=== PATIENT | male | born 1955 | race Caucasian/White ===

== ENCOUNTER 2020-10-06 09:39 | Outpatient (REF) | payer MEDICARE, SELFPAY ==
[2020-10-06 10:15] LABS: Basophils Percent Auto 0.3 % (0-2); MANUAL DIFF FLAG SCAN; Mean Corpuscular HGB Conc 32.5 g/dl (31.0-36.0); PLT CLUMP 1; Red Cell Distribution Width 13.2 % (11.0-16.0); SCAN SMEAR FLAG 1
[2020-10-06 10:17] LABS: Eosinophils Absolute Auto 0.2 X10*3/uL (0.0-0.4); Eosinophils Percent Auto 2.8 % (0-4); Hematocrit 45.2 % (42-52); Hemoglobin 14.7 g/dl (14.0-18.0); Imm Gran Abs Auto 0.04 X10*3/uL (0.00-0.03); Imm Gran Pct Auto 0.7 % (0.0-0.4); Lymphocytes Absolute Auto 1.1 X10*3/uL (1.2-4.9); Lymphocytes Percent Auto 17.8 % (20-40); Mean Corpuscular Hemoglobin 27.8 pg (27.0-33.0); Mean Corpuscular Volume 85.4 fL (80-98); Mean Platelet Volume 9.9 fL (9.4-12.4); Monocytes Absolute Auto 0.4 X10*3/uL (0.1-1.2); Monocytes Percent Auto 6.5 % (2-11); Neutrophils Absolute Auto 4.3 X10*3/uL (2.0-8.3); Neutrophils Percent Auto 71.9 % (45-73); Platelet Count 143 X10*3/uL (160-400); Red Blood Count 5.29 X10*6/uL (4.60-5.80)
[2020-10-06 10:45] LABS: Estimated Average Glucose 174 mg/dL; Hemoglobin A1c % 7.7 %
[2020-10-06 11:24] LABS: Alanine Aminotransferase 22 U/L (0-40); Albumin Level 4.6 g/dL (3.5-5.0); Alkaline Phosphatase 61 U/L (39-117); Anion Gap 15 (12-20); Aspartate Amino Transferase 24 U/L (5-37); Bilirubin Total 0.6 mg/dL (0.0-1.0); Blood Urea Nitrogen 19 mg/dL (9-16); Calcium 9.2 mg/dL (8.4-10.2); Carbon Dioxide 26 mmol/L (22-29); Chloride 101 mmol/L (96-108); Cholesterol 213 mg/dL; Estimated Glomerular Filt Rate 49; Glucose Random 219 mg/dL (60-115); HDL Cholesterol 37 mg/dL; LDL Cholesterol Calculated 149 mg/dl; Potassium 3.9 mmol/l (3.3-5.1); Sodium 138 mmol/L (135-145); Total Protein 7.5 g/dL (6.5-8.0); Triglycerides 138 mg/dL
[2020-10-06 11:46] LABS: Free T4 (Free Thyroxine) 1.17 ng/dL (0.71-1.85); Thyroid Stimulating Hormone 1.09 uIU/mL (0.32-4.0)
[2020-10-06 11:47] LABS: Prostate Specific Antigen Scr 1.05 ng/mL (<0.05-4.0)
[2020-10-06 12:03] LABS: Folate 13.6 ng/mL (> or = 4.0); Vitamin B12 367 pg/mL (200-900)
[2020-10-06 14:30] LABS: Creatinine Urine 258.26 mg/dL; Microalbum/Creatinine Ratio Ur 40.2 ug/mg cr
== END 2020-10-06 09:40 | disposition home or self-care (01) ==
LOC: HO.10HDL 09:39
PROVIDERS: PCP Internal Medicine; Visit Provider Internal Medicine
DX: I25.10 Atherosclerotic heart disease of native coronary artery without angina pectoris (principal); E78.00 Pure hypercholesterolemia, unspecified; I10 Essential (primary) hypertension; E11.65 Type 2 diabetes mellitus with hyperglycemia; Z79.4 Long term (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
CPT/HCPCS: 36415; 80053; 80061; 82043; 82607; 82746; 83036; 84153; 84439; 84443; 85025

== ENCOUNTER 2021-03-30 08:19 | Outpatient (REF) | payer MEDICARE, SELFPAY ==
[2021-03-30 09:33] LABS: Creatinine Urine 119.85 mg/dL
== END 2021-03-30 08:20 | disposition home or self-care (01) ==
LOC: HO.LAB 08:19
PROVIDERS: PCP Internal Medicine; Visit Provider Internal Medicine
DX: Z13.89 Encounter for screening for other disorder (principal)

== ENCOUNTER 2021-06-29 07:12 | Outpatient (REF) | payer MEDICARE, SELFPAY ==
[2021-06-29 07:40] LABS: Hematocrit 43.8 % (42-52); Hemoglobin 14.8 g/dl (14.0-18.0); Mean Corpuscular HGB Conc 33.8 g/dl (31.0-36.0); Mean Corpuscular Hemoglobin 27.3 pg (27.0-33.0); Mean Corpuscular Volume 80.8 fL (80-98); Mean Platelet Volume 10.3 fL (9.4-12.4); Platelet Count 206 X10*3/uL (160-400); Red Blood Count 5.42 X10*6/uL (4.60-5.80); Red Cell Distribution Width 12.9 % (11.0-16.0); White Blood Count 10.8 X10*3/uL (4.8-10.8)
[2021-06-29 08:06] LABS: Alanine Aminotransferase 11 U/L (0-40); Albumin Level 4.4 g/dL (3.5-5.0); Alkaline Phosphatase 66 U/L (39-117); Amylase 56 U/L (28-100); Aspartate Amino Transferase 14 U/L (5-37); Bilirubin Direct 0.2 mg/dL (0.0-0.5); Bilirubin Total 0.5 mg/dL (0.0-1.0); Lipase 122 U/L (8-78); Total Protein 7.1 g/dL (6.5-8.0)
== END 2021-06-29 07:13 | disposition home or self-care (01) ==
LOC: HO.LAB 07:12
PROVIDERS: PCP Internal Medicine; Visit Provider Physician Assistant
DX: R10.32 Left lower quadrant pain (principal); I10 Essential (primary) hypertension
CPT/HCPCS: 36415; 80076; 82150; 83690; 85027

== ENCOUNTER 2021-08-30 09:16 | Outpatient (REF) | payer MEDICARE, SELFPAY ==
--- NOTE | ~2021-08-30 | US_ITS ---
EXAMINATION: US ABDOMEN COMPLETE CLINICAL INFORMATION: Left lower quadrant pain. COMPARISON: Ultrasound abdomen 12/15/2008. TECHNIQUE: Real-time imaging of the abdominal viscera. FINDINGS: PANCREAS: Not well visualized due to bowel gas ABDOMINAL AORTA: Not well visualized due to bowel gas INFERIOR VENA CAVA: Not well visualized due to bowel gas LIVER: The liver is normal in size. The liver contour is normal. Liver echotexture is increased. No focal hepatic lesion. There is no intrahepatic biliary duct dilatation seen. GALLBLADDER: Surgically absent. COMMON BILE DUCT: Normal in caliber measuring 0.6 cm in diameter. RIGHT KIDNEY: Normal. No hydronephrosis. No renal calculi or focal parenchymal lesions. The kidney measures 12.6 cm in maximum dimension. LEFT KIDNEY: Normal. No hydronephrosis. No renal calculi or focal parenchymal lesions. The kidney measures 12.9 cm in maximum dimension. SPLEEN: Normal. The spleen measures 13.0 cm in maximum dimension. FREE FLUID: None. US/US abdomen complete IMPRESSION: Echogenic liver probably representing fatty infiltration. Limited visualization of the pancreas, aorta and IVC.
== END 2021-08-30 09:17 | disposition home or self-care (01) ==
LOC: HO.US 09:16
PROVIDERS: Visit Provider Physician Assistant
DX: R10.32 Left lower quadrant pain (principal)
CPT/HCPCS: 76700

== ENCOUNTER 2021-12-07 09:14 | Outpatient (REF) | payer MEDICARE, SELFPAY ==
[2021-12-07 09:43] LABS: MANUAL DIFF FLAG NO
[2021-12-07 10:00] LABS: Basophils Absolute Auto 0.1 X10*3/uL (0.0-0.2); Basophils Percent Auto 0.5 % (0-2); Eosinophils Absolute Auto 0.3 X10*3/uL (0.0-0.4); Hematocrit 44.9 % (42.0-52.0); Hemoglobin 15.3 g/dl (14.0-18.0); Imm Gran Abs Auto 0.09 X10*3/uL (0.00-0.03); Imm Gran Pct Auto 0.9 % (0.0-0.4); Lymphocytes Absolute Auto 1.7 X10*3/uL (1.2-4.9); Lymphocytes Percent Auto 16.4 % (20-40); Mean Corpuscular HGB Conc 34.1 g/dl (31.0-36.0); Mean Corpuscular Hemoglobin 27.9 pg (27.0-33.0); Mean Corpuscular Volume 81.9 fL (80.0-98.0); Mean Platelet Volume 9.3 fL (9.4-12.4); Monocytes Absolute Auto 0.7 X10*3/uL (0.1-1.2); Monocytes Percent Auto 7.2 % (2-11); Neutrophils Absolute Auto 7.2 x10*3/uL (2.0-8.3); Platelet Count 147 X10*3/uL (160-400); Red Blood Count 5.48 X10*6/uL (4.60-5.80); Red Cell Distribution Width 13.2 % (11.0-16.0)
[2021-12-07 10:20] LABS: Estimated Average Glucose 229 mg/dL; Hemoglobin A1c % 9.6 %
[2021-12-07 10:42] LABS: Alanine Aminotransferase 15 U/L (0-40); Albumin Level 4.2 g/dL (3.5-5.0); Alkaline Phosphatase 110 U/L (39-117); Anion Gap 11 (12-20); Aspartate Amino Transferase 13 U/L (5-37); Bilirubin Total 0.4 mg/dL (0.0-1.0); Blood Urea Nitrogen 19 mg/dL (9-16); Calcium 9.5 mg/dL (8.4-10.2); Carbon Dioxide 31 mmol/L (22-29); Chloride 100 mmol/L (96-108); Cholesterol 213 mg/dL; Estimated Glomerular Filt Rate 59; Glucose Fasting 264 mg/dL (60-99); HDL Cholesterol 31 mg/dL; LDL Cholesterol Calculated 134 mg/dl; Potassium 4.3 mmol/L (3.3-5.1); Sodium 138 mmol/L (135-145); Total Protein 7.4 g/dL (6.5-8.0); Triglycerides 240 mg/dL
[2021-12-07 10:45] LABS: TSH reflex Free T4 0.89 uIU/mL (0.32-4.0)
[2021-12-07 10:56] LABS: Vitamin B12 497 pg/mL (200-900)
[2021-12-07 11:24] LABS: Creatinine Urine 227.34 mg/dL; Microalbum/Creatinine Ratio Ur 6.5 ug/mg cr
[2021-12-12 12:12] LABS: Vitamin D 25-OH, D2 <4 ng/mL; Vitamin D 25-OH, D3 12 ng/mL; Vitamin D 25-OH, Total 12 ng/mL (30-100)
== END 2021-12-07 09:15 | disposition home or self-care (01) ==
LOC: HO.LAB 09:14
PROVIDERS: PCP Internal Medicine; Visit Provider Nurse Practitioner Acute Care
DX: E78.00 Pure hypercholesterolemia, unspecified (principal); I10 Essential (primary) hypertension; I25.10 Atherosclerotic heart disease of native coronary artery without angina pectoris
CPT/HCPCS: 36415; 80053; 80061; 82043; 82306; 82607; 82746; 83036; 84443; 85025

== ENCOUNTER 2022-01-23 10:24 | Outpatient (REF) | payer MEDICARE, SELFPAY ==
--- NOTE | ~2022-01-23 | XR_ITS ---
EXAMINATION: XR LUMBOSACRAL SPINE CLINICAL INFORMATION: Right-sided lower back pain without injury. COMPARISON: None TECHNIQUE: Three views of the lumbosacral spine. FINDINGS: Mild degenerative changes present in the spine with predominantly endplate changes with some sclerosis and osteophytes. Changes are most marked at L1-L2. No fractures or bony destructive lesions are seen. Minimal degenerative changes present. Surgical clips present in the right upper quadrant secondary to cholecystectomy. Marked aortic calcifications are seen. XR/XR lumbar spine 2-3V IMPRESSION: Mild degenerative changes in the spine and hips.
== END 2022-01-23 10:25 | disposition home or self-care (01) ==
LOC: HO.XRAY 10:24
PROVIDERS: PCP Internal Medicine; Visit Provider Internal Medicine
DX: M54.50 Low back pain, unspecified (principal)
CPT/HCPCS: 72100

== ENCOUNTER 2022-04-13 12:00 | Outpatient (REF) | payer MEDICARE, SELFPAY ==
[2022-04-13 12:25] LABS: Binax Now Covid-19 Ag Negative (Negative)
[2022-04-13 12:26] LABS: Binax Internal Control QC Valid; Binax Performed by: HO.BONILM
[2022-04-13 16:24] LABS: Influenza A PCR NEGATIVE (Negative); Influenza B PCR NEGATIVE (Negative); Resp Syncy Virus RNA Qual PCR NEGATIVE (Negative); SARS COV2 PCR INHOUSE NEGATIVE (Negative)
== END 2022-04-13 12:01 | disposition home or self-care (01) ==
LOC: HO.HMGCLDS 12:00
PROVIDERS: Visit Provider Physician Assistant Medical
DX: Z20.822 Contact with and (suspected) exposure to COVID-19 (principal); R05.9 Cough, unspecified
CPT/HCPCS: 0241U; 87811

== ENCOUNTER 2022-04-23 12:05 | Emergency (ER) | payer MEDICARE, SELFPAY ==
--- NOTE | ~2022-04-23 | XR_ITS ---
EXAMINATION: XR ABDOMEN KUB CLINICAL INDICATION: Fecal impaction COMPARISON: None TECHNIQUE: AP view of the abdomen. FINDINGS: Nonobstructed abdominal bowel gas pattern. There does not appear to be a large volume stool in the rectum nor is there a large volume of stool throughout the colon. Right upper quadrant cholecystectomy clips. Degenerative changes of the bilateral hips. XR/XR KUB IMPRESSION: There does not appear to be a large volume stool in the rectum nor is there much visible stool throughout the colon.
--- NOTE | ~2022-04-23 | XR_ITS ---
EXAMINATION: XR CHEST CLINICAL INFORMATION: Cough COMPARISON: November 02, 2019 TECHNIQUE: PA view of the chest was obtained. FINDINGS: There is no evidence of acute parenchymal disease, pneumothorax, or pleural effusion. Heart normal size. No evidence of pulmonary edema. Status post median sternotomy and what appears to be CABG. XR/XR chest 1V IMPRESSION: No acute disease.
[2022-04-23 14:14] LABS: MANUAL DIFF FLAG NO
[2022-04-23 14:21] LABS: Basophils Absolute Auto 0.1 X10*3/uL (0.0-0.2); Basophils Percent Auto 0.4 % (0-2); Eosinophils Absolute Auto 0.4 X10*3/uL (0.0-0.4); Eosinophils Percent Auto 3.1 % (0-4); Hematocrit 41.2 % (42.0-52.0); Hemoglobin 13.8 g/dl (14.0-18.0); Imm Gran Abs Auto 0.11 X10*3/uL (0.00-0.03); Imm Gran Pct Auto 0.9 % (0.0-0.4); Lymphocytes Percent Auto 16.5 % (20-40); Mean Corpuscular HGB Conc 33.5 g/dl (31.0-36.0); Mean Corpuscular Hemoglobin 28.4 pg (27.0-33.0); Mean Corpuscular Volume 84.8 fL (80.0-98.0); Monocytes Absolute Auto 1.2 X10*3/uL (0.1-1.2); Monocytes Percent Auto 10.3 % (2-11); Neutrophils Absolute Auto 8.1 x10*3/uL (2.0-8.3); Neutrophils Percent Auto 68.8 % (45-73); Platelet Count 207 X10*3/uL (160-400); Red Blood Count 4.86 X10*6/uL (4.60-5.80); Red Cell Distribution Width 12.7 % (11.0-16.0); White Blood Count 11.8 X10*3/uL (4.8-10.8)
--- NOTE | 2022-04-23 14:26 | ECG_ITS ---
Test Reason : Dizziness Blood Pressure : / mmHG Vent. Rate : 081 BPM Atrial Rate : 081 BPM P-R Int : 162 ms QRS Dur : 096 ms QT Int : 412 ms P-R-T Axes : 034 030 042 degrees QTc Int : 478 ms Normal sinus rhythm Normal ECG When compared with ECG of 15-OCT-2013 14:45, No significant change was found Referred By: Generic ED Physician Electronically Signed By:Shailesh Alonzo
[2022-04-23 14:27] VITALS: BP 165/74; PULSE 75; RESP 16; TEMP 37.1; O2SAT 96; BMI 35.2
[2022-04-23 14:35] LABS: Alanine Aminotransferase 17 U/L (0-40); Albumin Level 4.3 g/dL (3.5-5.0); Alkaline Phosphatase 80 U/L (39-117); Anion Gap 14 (12-20); Aspartate Amino Transferase 16 U/L (5-37); Bilirubin Direct 0.3 mg/dL (0.0-0.5); Bilirubin Total 0.5 mg/dL (0.0-1.0); Blood Urea Nitrogen 31 mg/dL (9-16); Calcium 9.2 mg/dL (8.4-10.2); Carbon Dioxide 30 mmol/L (22-29); Chloride 98 mmol/L (96-108); Creatinine Clr Calc Pharmacy 58.9; Estimated Glomerular Filt Rate 54; Glucose Random 169 mg/dL (60-115); Lipase 46 U/L (8-78); Potassium 3.7 mmol/L (3.3-5.1); Sodium 138 mmol/L (135-145); Total Protein 7.4 g/dL (6.5-8.0); Troponin-I High Sensitivity < 3.5 ng/L (<3.5-35.0)
[2022-04-23 14:54] LABS: COVID-19 Test Negative (Negative); IDNOW Serial# 9DB6401D; Influenza A Negative (Negative); Influenza B2 Negative (Negative)
--- NOTE | 2022-04-23 16:20 | ED.GENADULT ---
HPI - General Adult General Chief complaint: Upper Respiratory Symptoms Stated complaint: dizzy, brain fog, unbalanced, no appetite Time Seen by Provider: 04/23/22 16:20 Source: patient Mode of arrival: ambulatory Limitations: no limitations History of Present Illness HPI narrative: PATIENT COMPLAINING OF CONSTIPATION FOR LAST 5 DAYS UNABLE TO MOVE MUCH BOWELS PASSING ONLY SMALL AMOUNT OF STOOL WITH ABDOMINAL FULLNESS AND POOR APPETITE NO NAUSEA NO VOMITING NO DIARRHEA TRIED SENNA AT HOME WITHOUT MUCH RESPONSE NO FEVER Related Data Home Medications Medication Instructions Recorded Confirmed aspirin 81 mg tablet,delayed 81 mg PO DAILY 10/05/20 04/13/22 release cholecalciferol (vitamin D3) 25 50 mcg PO DAILY 12/12/21 04/13/22 mcg (1,000 unit) capsule Previous Rx's Medication Instructions Recorded fenofibrate 160 mg tablet 160 mg PO DAILY #90 caps 10/12/20 pen needle, diabetic 31 gauge x #4 boxes 04/07/2101/03 (1st Tier Unifine Pentips) blood sugar diagnostic ([facility] ##4 04/14/21 Ultra Blue Test Strip) ezetimibe 10 mg tablet (Zetia) 10 mg PO DAILY #90 tabs 05/26/21 gabapentin 100 mg capsule 100 mg PO BID #14 caps 12/06/21 hydrochlorothiazide 25 mg tablet 25 mg PO DAILY 90 days #90 caps 01/02/22 cholestyramine-aspartame 4 gram 4 g .Route BID 90 days #231 grams 01/23/22 oral powder (Prevalite) glipizide 5 mg tablet, extended 5 mg PO DAILY 30 days #30 tabs 01/23/22 release 24 hr lancets 30 gauge ([facility] #300 ea 01/23/22 Plus Lancet) rosuvastatin 40 mg tablet 40 mg PO DAILY 90 days #90 tabs 03/01/22 amlodipine 5 mg tablet 5 mg PO DAILY #90 tabs 04/02/22 insulin glargine 100 unit/mL (3 23 unit (0.23 mL) subcut QAM #15 mL 04/02/22 mL) subcutaneous pen (Babita Griffin U-100 Insulin) metoprolol tartrate 100 mg tablet 100 mg PO BID #180 tabs 04/02/22 olmesartan 20 mg tablet 20 mg PO DAILY 90 days #90 tabs 04/02/22 dulaglutide 0.75 mg/0.5 mL 0.75 mg (0.5 mL) subcut QWEEK 90 04/05/22 subcutaneous pen injector days #6.5 mL (Trulicity) sennosides 8.6 mg-docusate sodium 2 tab-cap PO BEDTIME #60 tabs 04/19/22 50 mg tablet (Senna-S) polyethylene glycol 3350 17 17 g PO DAILY PRN constipation 04/23/22 gram/dose oral powder (Miralax) #510 grams Allergies Allergy/AdvReac Type Severity Reaction Status Date / Time olmesartan Allergy Unknown Diarrhea Verified 04/19/22 12:15 Review of Systems Review of Systems: Yes all other systems are reviewed and are negative [facility] Past Medical History Medical History Anxiety and depression Coronary artery disease GERD (gastroesophageal reflux disease) Humeral fracture Hypercholesterolemia Hypertension Obesity (BMI 30-39.9) Type 2 diabetes mellitus with hyperglycemia Vitamin D deficiency Surgical History History of cholecystectomy History of colonoscopy History of coronary artery bypass graft History of repair of rotator cuff History of tonsillectomy History of umbilical hernia repair Family History Family History Father Lung cancer Mother Diabetes Hypertension Social History Social History Housing: House Patient Tobacco Use Status: Never used Tobacco e-Cigarette/Vaping Use: Never Used Second Hand Smoke Exposure: No Advance Directives: Yes Advance Directives on File: Yes Advance Directives Date on File: 03/07/22 Current occupational status: retired Cognitive needs: No Hearing needs: No Vision needs: Yes Physical Exam ED Vital Signs: Vital Signs - 24 hr 04/23/22 14:27 04/23/22 16:27 04/23/22 16:32 Temperature 98.8 F 97.6 F Pulse Rate 75 81 Respiratory Rate 16 16 Blood Pressure 165/74 H 168/72 H Pulse Oximetry 96 98 Oxygen Delivery Method Room Air Room Air 04/23/22 19:44 Temperature 97.7 F Pulse Rate 92 Respiratory Rate 16 Blood Pressure 172/76 H Pulse Oximetry 97 Oxygen Delivery Method Room Air BMI result Body Mass Index 35.2 Appearance: Alert. Oriented X3. No acute distress. Eyes: No pallor/ icterus ENT: Pharynx normal. Oral Mucosa moist Neck: Normal inspection. Neck supple. CVS: Normal heart rate and rhythm. Pulses normal. Respiratory: No respiratory distress. Equal air entry bilateral, no wheezing/rales/rhonchi Abdomen: Soft and nontender. Diffuse fullness Bowel sounds are present, no mass palpable, no CVA tenderness Skin: Skin warm and dry. Normal skin color. Normal skin turgor. Extremities: No lower extremity edema. No calf tenderness Neuro: Oriented X 3. No motor deficit. Medical Decision Making MDM Narrative Medical decision making narrative: Patient given constipation had good bowel movement after Mag citrate in the ER feeling much better now has slightly elevated WBC count will check the UA COVID and flu negative Lab Data Lab results reviewed: Yes I reviewed the patient's lab results. Result diagrams: 04/23/22 14:10 04/23/22 14:10 Labs: Lab Results 04/23/22 04/23/22 04/23/22 Range/Units 14:10 14:10 14:10 WBC 11.8 H (4.8-10.8) X10*3/uL RBC 4.86 (4.60-5.80) X10*6/uL Hgb 13.8 L (14.0-18.0) g/dl Hct 41.2 L (42.0-52.0) % MCV 84.8 (80.0-98.0) fL MCH 28.4 (27.0-33.0) pg MCHC 33.5 (31.0-36.0) g/dl RDW 12.7 (11.0-16.0) % Plt Count 207 D (160-400) X10*3/uL MPV 10.0 (9.4-12.4) fL Immature Gran % (Auto) 0.9 H (0.0-0.4) % Neut % (Auto) 68.8 (45-73) % Lymph % (Auto) 16.5 L (20-40) % [place] % (Auto) 10.3 (2-11) % Eos % (Auto) 3.1 (0-4) % Baso % (Auto) 0.4 (0-2) % Lymph # (Auto) 2.0 (1.2-4.9) X10*3/uL [place] # (Auto) 1.2 (0.1-1.2) X10*3/uL Eos # (Auto) 0.4 (0.0-0.4) X10*3/uL Baso # (Auto) 0.1 (0.0-0.2) X10*3/uL Abs Immat Gran (auto) 0.11 H (0.00-0.03) X10*3/uL Absolute Neuts (auto) 8.1 (2.0-8.3) x10*3/uL Absolute Nucleated RBC 0.000 (0.0-0.012) X10*3/uL Nucleated RBC % (auto) 0.0 (0.0-0.2) /100WBC Sodium 138 (135-145) mmol/L Potassium 3.7 (3.3-5.1) mmol/L Chloride 98 (96-108) mmol/L Carbon Dioxide 30 H (22-29) mmol/L Anion Gap 14 (12-20) BUN 31 H D (9-16) mg/dL Creatinine 1.32 (0.5-1.4) mg/dL Estim Creat Clear Calc 58.9 Estimated GFR 54 Random Glucose 169 H (60-115) mg/dL Calcium 9.2 (8.4-10.2) mg/dL Total Bilirubin 0.5 (0.0-1.0) mg/dL Direct Bilirubin 0.3 (0.0-0.5) mg/dL AST 16 (5-37) U/L ALT 17 (0-40) U/L Alkaline Phosphatase 80 D (39-117) U/L Troponin I High Sens < 3.5 (<3.5-35.0) ng/L Total Protein 7.4 (6.5-8.0) g/dL Albumin 4.3 (3.5-5.0) g/dL Lipase 46 (8-78) U/L Urine Color Urine Appearance Urine pH (5.0-8.0) Ur Specific [place] (1.005-1.025) Urine Protein (NEG-TRACE) MG/DL Urine Glucose (UA) (NEG) MG/DL Urine Ketones (NEG) MG/DL Urine Blood (NEG) Urine Nitrite (NEG) Ur Leukocyte Esterase (NEG) COVID-19 (ROSANNA) (Negative) COVID-19 Clin Com Influenza Type A (JOVON) (Negative) Influenza Type B (JOVON) (Negative) Influenza A & B Note 04/23/22 04/23/22 04/23/22 Range/Units 14:34 14:34 19:46 WBC (4.8-10.8) X10*3/uL RBC (4.60-5.80) X10*6/uL Hgb (14.0-18.0) g/dl Hct (42.0-52.0) % MCV (80.0-98.0) fL MCH (27.0-33.0) pg MCHC (31.0-36.0) g/dl RDW (11.0-16.0) % Plt Count (160-400) X10*3/uL MPV (9.4-12.4) fL Immature Gran % (Auto) (0.0-0.4) % Neut % (Auto) (45-73) % Lymph % (Auto) (20-40) % [place] % (Auto) (2-11) % Eos % (Auto) (0-4) % Baso % (Auto) (0-2) % Lymph # (Auto) (1.2-4.9) X10*3/uL [place] # (Auto) (0.1-1.2) X10*3/uL Eos # (Auto) (0.0-0.4) X10*3/uL Baso # (Auto) (0.0-0.2) X10*3/uL Abs Immat Gran (auto) (0.00-0.03) X10*3/uL Absolute Neuts (auto) (2.0-8.3) x10*3/uL Absolute Nucleated RBC (0.0-0.012) X10*3/uL Nucleated RBC % (auto) (0.0-0.2) /100WBC Sodium (135-145) mmol/L Potassium (3.3-5.1) mmol/L Chloride (96-108) mmol/L Carbon Dioxide (22-29) mmol/L Anion Gap (12-20) BUN (9-16) mg/dL Creatinine (0.5-1.4) mg/dL Estim Creat Clear Calc Estimated GFR Random Glucose (60-115) mg/dL Calcium (8.4-10.2) mg/dL Total Bilirubin (0.0-1.0) mg/dL Direct Bilirubin (0.0-0.5) mg/dL AST (5-37) U/L ALT (0-40) U/L Alkaline Phosphatase (39-117) U/L Troponin I High Sens (<3.5-35.0) ng/L Total Protein (6.5-8.0) g/dL Albumin (3.5-5.0) g/dL Lipase (8-78) U/L Urine Color YELLOW Urine Appearance CLEAR Urine pH 5.5 (5.0-8.0) Ur Specific [place] 1.025 (1.005-1.025) Urine Protein NEG (NEG-TRACE) MG/DL Urine Glucose (UA) NEG (NEG) MG/DL Urine Ketones NEG (NEG) MG/DL Urine Blood NEG (NEG) Urine Nitrite NEG (NEG) Ur Leukocyte Esterase NEG (NEG) COVID-19 (ROSANNA) Negative (Negative) COVID-19 Clin Com See Note Influenza Type A (JOVON) Negative (Negative) Influenza Type B (JOVON) Negative (Negative) Influenza A & B Note See Note ECG Data Attestation: I personally reviewed and interpreted this ECG as follows: Interpretation: Normal sinus rhythm heart rate 81 beats per minute normal interval normal axis no acute in no acute ischemia Discharge Plan Discharge Clinical Impression: Constipation Patient Disposition: Home, Self-Care Instructions: Constipation (ED) Additional Instructions: Drink plenty of fluids MiraLax for constipation daily as needed Follow-up with PCP Prescriptions: New polyethylene glycol 3350 [Miralax] 17 gram/dose powder 17 g PO DAILY PRN (Reason: constipation) Qty: 510 0RF No Action fenofibrate 160 mg tablet 160 mg PO DAILY Qty: 90 2RF (DME) pen needle, diabetic [1st Tier Unifine Pentips] 31 gauge x 3/16 needle See Rx Instructions .ROUTE .MEDSUPPLY Qty: 4 3RF Rx Instructions: As directed inject insulin 4 times a day (DME) OneTouch Ultra Blue Test Strip Strip See Rx Instructions .ROUTE .MEDSUPPLY Qty: 4 3RF Rx Instructions: As directed check the blood sugar 4 times a day ezetimibe [Zetia] 10 mg tablet 10 mg PO DAILY Qty: 90 2RF cholecalciferol (vitamin D3) 25 mcg (1,000 unit) capsule 50 mcg PO DAILY hydrochlorothiazide 25 mg tablet 25 mg PO DAILY 90 Days Qty: 90 2RF glipizide 5 mg tablet extended release 24 hr 5 mg PO DAILY 30 Days Qty: 30 3RF rosuvastatin 40 mg tablet 40 mg PO DAILY 90 Days Qty: 90 0RF insulin glargine [Basaglar KwikPen U-100 Insulin] 100 unit/mL (3 mL) insulin pen 23 unit subcut QAM Qty: 15 5RF metoprolol tartrate 100 mg tablet 100 mg PO BID Qty: 180 2RF amlodipine 5 mg tablet 5 mg PO DAILY Qty: 90 2RF olmesartan 20 mg tablet 20 mg PO DAILY 90 Days Qty: 90 2RF Trulicity 0.75 mg/0.5 mL pen injector 0.75 mg subcut QWEEK 90 Days Qty: 6.5 3RF aspirin 81 mg tablet,delayed release (DR/EC) 81 mg PO DAILY Prevalite 4 gram powder 4 g .ROUTE BID 90 Days Qty: 231 11RF Rx Instructions: 4 grams 2 times a day; (DME) lancets [OneTouch Delica Plus Lancet] 30 gauge misc See Rx Instructions .Route Qty: 300 3RF Rx Instructions: As directed check the BS TID gabapentin 100 mg capsule 100 mg PO BID Qty: 14 0RF sennosides-docusate sodium [Senna-S] 8.6-50 mg tablet 2 tab-cap PO BEDTIME Qty: 60 1RF Interventions: ED Discharge Assessment Last Done: 04/23/22 20:29 Discharge Date/Time: 04/23/22 20:31
[2022-04-23 16:27] VITALS: BP 168/72; PULSE 81; RESP 16; O2SAT 98
[2022-04-23 16:32] VITALS: TEMP 36.4
[2022-04-23] MEDS: Magnesium Citrate 300 ML SOLUTION PO (16:35)
[2022-04-23 19:44] VITALS: BP 172/76; PULSE 92; RESP 16; TEMP 36.5; O2SAT 97
[2022-04-23 20:08] LABS: Appearance Urine CLEAR; Color Urine YELLOW; Glucose Urine UA NEG (NEG); Leukocyte Esterase Urine NEG (NEG); Nitrite Urine NEG (NEG); PH 5.5 (5.0-8.0); Specific Gravity - Urine 1.025 (1.005-1.025); Urine Blood NEG (NEG); Urine Ketones NEG (NEG); Urine Protein NEG (NEG-TRACE)
== END 2022-04-23 20:31 | disposition home or self-care (01) ==
PROVIDERS: Emergency Provider Internal Medicine; PCP Internal Medicine
DX: K59.00 Constipation, unspecified (principal); Z20.822 Contact with and (suspected) exposure to COVID-19
CPT/HCPCS: 36415; 71045; 74018; 80048; 80076; 81003; 83690; 84484; 85025; 87502; 87635; 93005; 99284

== ENCOUNTER 2022-06-15 07:47 | Outpatient (REF) | payer MEDICARE, SELFPAY ==
[2022-06-15 11:12] LABS: Alanine Aminotransferase 13 U/L (0-40); Albumin Level 4.1 g/dL (3.5-5.0); Alkaline Phosphatase 76 U/L (39-117); Anion Gap 20 (12-20); Aspartate Amino Transferase 17 U/L (5-37); Bilirubin Total 0.5 mg/dL (0.0-1.0); Blood Urea Nitrogen 19 mg/dL (9-16); Calcium 8.8 mg/dL (8.4-10.2); Carbon Dioxide 23 mmol/L (22-29); Chloride 102 mmol/L (96-108); Cholesterol 166 mg/dL; Estimated Glomerular Filt Rate > 60; Glucose Random 171 mg/dL (60-115); HDL Cholesterol 35 mg/dL; LDL Cholesterol Calculated 95 mg/dl; Potassium 4.1 mmol/L (3.3-5.1); Sodium 141 mmol/L (135-145); Total Protein 7.2 g/dL (6.5-8.0); Triglycerides 182 mg/dL
== END 2022-06-15 07:48 | disposition home or self-care (01) ==
LOC: HO.10HDL 07:47
PROVIDERS: Visit Provider Internal Medicine
DX: E78.00 Pure hypercholesterolemia, unspecified (principal)
CPT/HCPCS: 36415; 80053; 80061

== ENCOUNTER 2022-08-20 08:43 | Day surgery (SDC) | payer MEDICARE, SELFPAY ==
[2022-08-20 09:08] VITALS: BMI 31.5
[2022-08-20 09:35] VITALS: BP 137/74; PULSE 71; RESP 16; TEMP 36.4; O2SAT 96
[2022-08-20 09:47] LABS: Glucose, Whole Blood 177 mg/dL (60-115)
[2022-08-20 10:49] VITALS: BP 121/58; PULSE 68; RESP 14; TEMP 36.1; O2SAT 95
--- NOTE | 2022-08-20 10:53 | PM.OP ---
Brief Operative Note Date of Service: 08/20/22 Pre-op diagnosis: Screening Post-op diagnosis: other (Polyps) Procedure: Colonoscopy to the cecum with hot snare polypectomy in proximal Ascending colon, bx/ removal of polyp at 60cm, and biopsies of fold in the transverse colon. Surgeon: Isaiah Benito Anesthesia: MAC Was an Rn Emergency Room used for this Procedure?: No Estimated blood loss (mL): 2.0 Pathology: other (A. Ascending colon polyp B. Transverse colon C. Polyp at 60cm) Condition: stable Disposition: PACU
--- NOTE | 2022-08-20 10:55 | PC.NURSE ---
pt drinking gingerale no n/v
[2022-08-20 11:04] VITALS: BP 140/66; PULSE 69; RESP 18; TEMP 36.2; O2SAT 100
--- NOTE | 2022-08-20 11:13 | HO.ANESPROP2 ---
[facility] Active Problems Active Problems: All Active Problems (Updated 04/24/22 @ 00:01 by Background Daemon) Diarrhea (Acute) LLQ abdominal pain (Acute) Lumbar spine strain (Acute) Shingles (herpes zoster) polyneuropathy (Acute) Acute pain associated with herpes zoster (Acute) Colon cancer screening (Acute) Generalized anxiety disorder (Acute) Low back pain (Acute) Screening for prostate cancer (Acute) Adult general medical exam (Acute) Constipation (Acute) Vitamin D deficiency (Acute) Anxiety and depression (Acute) Type 2 diabetes mellitus with hyperglycemia (Acute) Hypercholesterolemia (Acute) Obesity (BMI 30-39.9) (Acute) Coronary artery disease (Acute) Hypertension (Acute) Past Medical History Medical History (Updated 04/24/22 @ 00:01 by Background Daemon) Anxiety and depression Coronary artery disease GERD (gastroesophageal reflux disease) Humeral fracture Hypercholesterolemia Hypertension Obesity (BMI 30-39.9) Type 2 diabetes mellitus with hyperglycemia Vitamin D deficiency Family History Family History Father Lung cancer Mother Diabetes Hypertension Family history of problems with anesthesia: No Surgical History Surgical History (Updated 08/17/22 @ 11:28 by Stephanie Webber RN) History of cholecystectomy History of colonoscopy History of coronary artery bypass graft History of repair of rotator cuff History of tonsillectomy History of umbilical hernia repair History of Problems with Anesthesia: No Social History Social History Housing: House Patient Tobacco Use Status: Never used Tobacco e-Cigarette/Vaping Use: Never Used Second Hand Smoke Exposure: No Use of substances other than those prescribed or required for medical reasons: No Are you DNR?: No Advance Directives: Yes Advance Directives on File: Yes Advance Directives Date on File: 03/07/22 Current occupational status: retired Cognitive needs: No Hearing needs: No Vision needs: Yes Meds Allergies Allergy/AdvReac Type Severity Reaction Status Date / Time olmesartan Allergy Unknown Diarrhea Verified 06/14/22 11:34 Active Medications: Current Medications Lactated Ringer's (Lr) 1,000 mls @ 100 mls/hr IVCONT .Q10H SWETHA Sodium Biphosphate/Sodium Phosphate (Sodium Phosphate,Coke-Dibasic 133 Ml Enema) 133 ml NC ONCE PRN PRN Reason: Poor Colonoscopy Prep Results Home Medications Medication Instructions Recorded Confirmed Last Taken Type aspirin 81 mg tablet,delayed 81 mg PO DAILY 10/05/20 04/13/22 Unknown History release cholecalciferol (vitamin D3) 25 50 mcg PO DAILY 12/12/21 04/13/22 Unknown History mcg (1,000 unit) capsule Exam Exam Date and Time: August 20, 2022 1113 Height,Weight and Vital Signs: Height 5 ft 10 in Weight 99.79 kg Last Vital Signs Temp 97.2 F 08/20/22 11:04 Pulse 69 08/20/22 11:04 Resp 18 08/20/22 11:04 BP 140/66 H 08/20/22 11:04 Pulse Ox 100 08/20/22 11:04 O2 Del Method 08/20/22 11:04 Pertinent Lab Results Pertinent Lab Results: Laboratory Tests 08/20/22 09:33 POC Glucose 177 H Airway Mallampati Class: II TM Dist: >3cm Neck ROM: Full Assessment and Plan Assessment Anesthesia Assessment: Anesthesia Plan Discussed and Chart Reviewed Final Anesthetic Review Family History of Problems with Anesthesia: No History of Problems with Anesthesia: No NPO: Yes ASA Class: II Final Preanesthetic Review: No Changes in Pt Med Stat, Meds/Allgs Chart Reviewed, Consent Obtained/Reviewed and Anes Risks/Benef Reviewed Patient Risk: Low Procedure Risk: Low Anesthetic Plan Anesthetic Plan: MAC: Disposition: Standard PACU
--- NOTE | 2022-08-20 22:22 | OP_ITS ---
SURGEON: Isaiah Benito MD INDICATIONS: The patient presents for evaluation of colorectal cancer screening. Full consent was obtained from him for this, including risks of bleeding and perforation. PREOPERATIVE DIAGNOSIS: POSTOPERATIVE DIAGNOSIS: PROCEDURE PERFORMED: Colonoscopy to the cecum with biopsy and removal of polyp and hot snare polypectomy. ESTIMATED BLOOD LOSS: COMPLICATIONS: ANESTHESIA: Monitored anesthesia care. ASSISTANTS: SPECIMENS: PREOPERATIVE DIAGNOSES: Colorectal cancer screening. POSTOPERATIVE DIAGNOSES: Colorectal cancer screening, colon polyps, diverticulosis, and internal hemorrhoids. DESCRIPTION OF PROCEDURE: The patient was placed in the left lateral decubitus position. The digital rectal exam revealed no abnormalities. The Olympus video pediatric colonoscope was entered into the rectum and advanced to the cecum. Once in the cecum, I did identify normal-appearing cecal pouch with appendiceal orifice and a normal-appearing ileocecal valve. The entire cecum and ileocecal valve appeared normal. The scope was slowly withdrawn assessing all mucosal surfaces carefully. Preparation was excellent after irrigation and suctioning. In the proximal ascending colon was an approximately 8 to 10 mm polyp, which was removed by hot snare polypectomy and recovered by suction. Post polypectomy, there did not appear to be any residual polyp nor bleeding. In the transverse colon, on a fold, was a slight area of some edema and inflammation. This did not appear consistent with a mass or neoplasm. Biopsies were obtained. At 60 cm was an approximately 3 or 4 mm polyp, which was biopsied and completely removed with cold biopsy forceps. I did not visualize any other polyps, colitis, nor angiodysplasia. There were scattered diverticulae in the ascending colon and a moderate amount of diverticulosis in the descending and sigmoid colon. In the rectum, scope was retroflexed visualizing internal hemorrhoids, but no other pathology. The rectal mucosa appeared normal. Scope was straightened and withdrawn from the patient. He tolerated the procedure well and was returned to recovery area in stable condition. IMPRESSION: 1. Colon polyps. 2. Area of inflammation, status post biopsy. 3. Diverticulosis. 4. Internal hemorrhoids. PLAN: The results of the biopsies will be checked. If the ascending colon polyp is a tubular adenoma, I would recommend a followup colonoscopy in 5 years. He was advised to remain off aspirin for another 72 hours and avoid NSAIDs for at least 1 week. He would otherwise see me on a p.r.n. basis. In regard to the diarrhea, I did advise him to continue his daily cholestyramine and to minimize caffeine. MD ANJEL Combs/SHIELA / [id number] MTDD
== END 2022-08-20 11:32 | disposition home or self-care (01) ==
PROVIDERS: PCP Internal Medicine; Visit Provider Internal Medicine
PROC: 0DJD8ZZ Inspection of Lower Intestinal Tract, Via Natural or Artificial Opening Endoscopic (ICD-10-PCS; CPT 45378; principal; 2022-08-20 10:50)
DX: Z12.11 Encounter for screening for malignant neoplasm of colon (principal); D12.2 Benign neoplasm of ascending colon; D12.3 Benign neoplasm of transverse colon; D12.4 Benign neoplasm of descending colon; K57.30 Diverticulosis of large intestine without perforation or abscess without bleeding; K64.8 Other hemorrhoids; R19.7 Diarrhea, unspecified; I10 Essential (primary) hypertension; I25.10 Atherosclerotic heart disease of native coronary artery without angina pectoris; Z95.1 Presence of aortocoronary bypass graft; E78.5 Hyperlipidemia, unspecified; E11.65 Type 2 diabetes mellitus with hyperglycemia; Z79.4 Long term (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; Z79.82 Long term (current) use of aspirin; Z79.899 Other long term (current) drug therapy; Z88.8 Allergy status to other drugs, medicaments and biological substances; Z90.49 Acquired absence of other specified parts of digestive tract
CPT/HCPCS: 45385; 45380; 82947; 88305

== ENCOUNTER → 2022-09-05 10:15 | Outpatient (BNVA) | payer MEDICARE, SELFPAY | PROVIDERS: PCP Internal Medicine; Visit Provider Dietitian, Registered | DX: E11.65 Type 2 diabetes mellitus with hyperglycemia (principal); Z79.4 Long term (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 | CPT/HCPCS: 97802 ==

== ENCOUNTER → 2022-10-24 11:22 | Outpatient (BNVA) | payer MEDICARE, SELFPAY | PROVIDERS: PCP Internal Medicine; Visit Provider Dietitian, Registered | DX: E11.65 Type 2 diabetes mellitus with hyperglycemia (principal); Z79.4 Long term (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; Z71.3 Dietary counseling and surveillance | CPT/HCPCS: 97803 ==

== ENCOUNTER 2022-12-07 08:20 | Outpatient (REF) | payer MEDICARE, SELFPAY ==
[2022-12-07 10:42] LABS: MANUAL DIFF FLAG NO
[2022-12-07 10:46] LABS: Basophils Absolute Auto 0.1 X10*3/uL (0.0-0.2); Basophils Percent Auto 0.7 % (0-2); Eosinophils Absolute Auto 0.4 X10*3/uL (0.0-0.4); Eosinophils Percent Auto 2.9 % (0-4); Hematocrit 45.9 % (42.0-52.0); Hemoglobin 14.9 g/dl (14.0-18.0); Imm Gran Abs Auto 0.07 X10*3/uL (0.00-0.03); Imm Gran Pct Auto 0.5 % (0.0-0.4); Immature Retic Fraction 12.1 % (2.3-13.4); Lymphocytes Absolute Auto 2.5 X10*3/uL (1.2-4.9); Lymphocytes Percent Auto 18.3 % (20-40); Mean Corpuscular HGB Conc 32.5 g/dl (31.0-36.0); Mean Corpuscular Hemoglobin 27.3 pg (27.0-33.0); Mean Corpuscular Volume 84.2 fL (80.0-98.0); Mean Platelet Volume 11.4 fL (9.4-12.4); Monocytes Absolute Auto 1.2 X10*3/uL (0.1-1.2); Monocytes Percent Auto 8.3 % (2-11); Neutrophils Absolute Auto 9.6 x10*3/uL (2.0-8.3); Neutrophils Percent Auto 69.3 % (45-73); Platelet Count 200 X10*3/uL (160-400); Red Blood Count 5.45 X10*6/uL (4.60-5.80); Red Cell Distribution Width 12.9 % (11.0-16.0); Retic HGB Equivalent 34.1 pg (30.0-35.0); Reticulocyte Percent 1.6 % (0.5-1.8); Reticulocytes Absolute 0.087 X10*6/uL (0.026-0.095); White Blood Count 13.8 X10*3/uL (4.8-10.8)
[2022-12-07 10:52] LABS: Estimated Average Glucose 214 mg/dL; Hemoglobin A1c % 9.1 %
[2022-12-07 11:01] LABS: Alanine Aminotransferase 27 U/L (0-40); Albumin Level 4.3 g/dL (3.5-5.0); Alkaline Phosphatase 91 U/L (39-117); Anion Gap 15 (12-20); Aspartate Amino Transferase 26 U/L (5-37); Bilirubin Total 0.6 mg/dL (0.0-1.0); Blood Urea Nitrogen 19 mg/dL (9-16); Calcium 9.6 mg/dL (8.4-10.2); Carbon Dioxide 29 mmol/L (22-29); Chloride 101 mmol/L (96-108); Cholesterol 137 mg/dL; Estimated Glomerular Filt Rate > 60; Glucose Random 221 mg/dL (60-115); HDL Cholesterol 33 mg/dL; Iron 64 mcg/dL (45-160); LDL Cholesterol Calculated 71 mg/dl; Percent Iron Saturation 15 % (15-50); Potassium 4.5 mmol/L (3.3-5.1); Sodium 140 mmol/L (135-145); Total Iron Binding Capacity 418 mcg/dL (228-428); Triglycerides 168 mg/dL; Unsaturated Iron Binding 354 ug/dL
[2022-12-07 11:30] LABS: Ferritin 205 ng/mL (20-250); Folate 14.8 ng/mL (> or = 4.0); Free T4 (Free Thyroxine) 0.97 ng/dL (0.71-1.85); Prostate Specific Antigen Scr 0.75 ng/mL (<0.05-4.0); Vitamin B12 444 pg/mL (200-900)
[2022-12-07 11:31] LABS: Creatinine Urine 97.35 mg/dL; Microalbum/Creatinine Ratio Ur 11.2 ug/mg cr
== END 2022-12-07 08:21 | disposition home or self-care (01) ==
LOC: HO.10HDL 08:20
PROVIDERS: Visit Provider Internal Medicine
DX: Z12.5 Encounter for screening for malignant neoplasm of prostate (principal); E11.65 Type 2 diabetes mellitus with hyperglycemia; E78.00 Pure hypercholesterolemia, unspecified; Z79.4 Long term (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
CPT/HCPCS: 36415; 80053; 80061; 82043; 82607; 82728; 82746; 83036; 83540; 84153; 84439; 85025; 85045

== ENCOUNTER 2023-01-09 14:12 | Outpatient (REF) | payer MEDICARE, SELFPAY ==
--- NOTE | ~2023-01-09 | US_ITS ---
EXAMINATION: US PELVIS LIMITED (BLADDER) CLINICAL INFORMATION: Frequency of micturition. COMPARISON: X-ray abdomen KUB 04/23/2022. Ultrasound abdomen complete 08/30/2021. TECHNIQUE: Real-time imaging of the bladder. FINDINGS: The bladder is well-distended. There appears to be mild diffuse bladder wall thickening which is most prominent posteriorly.. Bilateral ureteral jets are demonstrated. Prevoid bladder volume is 234.5 mL. Postvoid bladder volume is 27.7 mL. Prostate gland: 4.7 x 4.1 x 5.1 cm, volume 51 mL. US/US bladder IMPRESSION: 1. Prominent post void bladder residual of 29 mL. 2. Mild diffuse bladder wall thickening which is most prominent posteriorly. This is a nonspecific finding but likely related to prostatomegaly. Clinical correlation recommended. 3. Enlarged prostate gland.
== END 2023-01-09 14:13 | disposition home or self-care (01) ==
LOC: HO.US 14:12
PROVIDERS: PCP Internal Medicine; Visit Provider Internal Medicine
DX: R35.0 Frequency of micturition (principal)
CPT/HCPCS: 76857

== ENCOUNTER 2023-01-21 10:32 | Emergency (ER) | payer MEDICARE, SELFPAY ==
--- NOTE | ~2023-01-21 | CT_ITS ---
EXAMINATION: CT ABDOMEN AND PELVIS WITH CONTRAST CLINICAL INFORMATION: Right-sided abdominal pain COMPARISON: Ultrasound of abdomen 08/30/2021 TECHNIQUE: Multidetector volumetric images were obtained from the superior aspect of the liver through the pubic symphysis following administration 85 mL of Omnipaque 350 intravenous contrast. Sagittal and coronal reformatted images were obtained on the technologist's workstation. Oral contrast: No This CT examination was performed using dose optimization techniques as appropriate, variously including the following: *Automated exposure control *Adjustment of mA and/or kV according to patient size (this includes techniques or standardized protocols for targeted exams where dose is matched to indication/reason for exam; i.e. extremities or head) *Use of iterative reconstruction technique DLP: 837 mGy-cm FINDINGS: LUNG BASES: The visualized lung bases are unremarkable. Status post median sternotomy. Heart size is normal. Heavy coronary artery calcifications. Scattered vascular calcifications of thoracic aorta. LIVER, GALLBLADDER, AND BILIARY TREE: The liver is normal in size, shape, and attenuation. No focal hepatic lesion or biliary ductal dilatation is present. Status post cholecystectomy. PANCREAS: Unremarkable. SPLEEN: Unremarkable. ADRENAL GLANDS: Unremarkable. KIDNEYS AND URETERS: The kidneys are normal in size, shape, and attenuation. No hydronephrosis, hydroureter, or calculi seen. No perinephric stranding. BLADDER: Unremarkable. GASTROINTESTINAL TRACT: There are numerous diverticula of the sigmoid and descending colon. There are scattered diverticula of the right colon as well. There is no diverticulitis. There is no bowel wall thickening /edema. There is no bowel obstruction. There is a moderate volume of stool in the colon. The appendix is normal . The small bowel loops are unremarkable. The stomach is normal. There is no hiatal hernia. ABDOMINAL WALL: No significant hernia is appreciated. LYMPH NODES: Normal. VASCULAR: Vascular calcifications throughout the abdomen and the pelvis. There is no aneurysm. PELVIC VISCERA: Unremarkable. OSSEOUS STRUCTURES: Status post median sternotomy. Moderate degenerative spondylosis of lower thoracic and lumbar spine. CT/CT abdomen pelvis w IV con IMPRESSION: No acute abnormality CT scan abdomen pelvis. Fleischner guidelines were followed.
[2023-01-21 10:35] VITALS: BP 174/74; PULSE 76; RESP 18; TEMP 36.6; O2SAT 97; BMI 31.8
[2023-01-21 11:05] VITALS: BP 173/60; PULSE 83; RESP 15; TEMP 36.4; O2SAT 95
--- NOTE | 2023-01-21 12:00 | ED.ABDPAIN ---
HPI - Abdominal Pain General Chief Complaint: Abdominal Pain Stated Complaint: abd pain Time Seen by Provider: 01/21/23 11:22 Source: patient Mode of arrival: ambulatory Limitations: no limitations History of Present Illness MD elicited complaint: abdominal pain Onset (ago): hour(s) (9) Pain Consistency: constant Location: RLQ Severity: severe Pain scale (0-10): 7 Quality: aching Radiation: none Migration to: no migration Exacerbating factors: nothing Relieving factors: nothing Associated symptoms: nausea Related Data Home Medications Medication Instructions Recorded Confirmed aspirin 81 mg tablet,delayed 81 mg PO DAILY 10/05/20 08/30/22 release insulin glargine 100 unit/mL (3 20 unit subcut QAM 08/30/22 mL) subcutaneous pen (Basaglar KwikPen U-100 Insulin) Previous Rx's Medication Instructions Recorded pen needle, diabetic 31 gauge x #4 boxes 04/07/2101/03 (1st Tier Unifine Pentips) blood sugar diagnostic (OneTouch ##4 04/14/21 Ultra Blue Test Strip) lancets 30 gauge (GroupSwimTo3Funnel #300 ea 01/23/22 Plus Lancet) rosuvastatin 40 mg tablet 40 mg PO DAILY 90 days #90 tabs 03/01/22 glipizide 5 mg tablet, extended 5 mg PO DAILY 30 days #90 tabs 06/04/22 release 24 hr dulaglutide 1.5 mg/0.5 mL 1.5 mg (0.5 mL) subcut QWEEK 90 08/30/22 subcutaneous pen injector days #6.5 mL ezetimibe 10 mg tablet (Zetia) 10 mg PO DAILY #90 tabs 08/30/22 hydrochlorothiazide 25 mg tablet 25 mg PO DAILY 90 days #90 caps 09/29/22 cholestyramine-aspartame 4 gram 4 g .Route BID 90 days #231 grams 12/17/22 oral powder (Prevalite) amlodipine 5 mg tablet 5 mg PO DAILY #90 tabs 12/31/22 metoprolol tartrate 100 mg tablet 100 mg PO BID #180 tabs 12/31/22 olmesartan 20 mg tablet 20 mg PO DAILY 90 days #90 tabs 12/31/22 dicyclomine 20 mg tablet 20 mg PO QID PRN abdominal 01/21/23 discomfort #14 tabs ondansetron 4 mg disintegrating 4 mg PO Q8H PRN nausea and 01/21/23 tablet vomiting #10 tabs Allergies Allergy/AdvReac Type Severity Reaction Status Date / Time olmesartan Allergy Unknown Diarrhea Verified 12/17/22 09:14 [facility] Past Medical History Medical History Anxiety and depression Coronary artery disease Diarrhea GERD (gastroesophageal reflux disease) Humeral fracture Hypercholesterolemia Hypertension Obesity (BMI 30-39.9) Screening for prostate cancer Type 2 diabetes mellitus with hyperglycemia Vitamin D deficiency Surgical History History of cholecystectomy History of colonoscopy History of coronary artery bypass graft History of repair of rotator cuff History of tonsillectomy History of umbilical hernia repair Family History Family History Father Lung cancer Mother Diabetes Hypertension Social History Social History Housing: House Patient Tobacco Use Status: Never used Tobacco Smoked in Last 30 Days: No e-Cigarette/Vaping Use: Never Used Second Hand Smoke Exposure: No Use of substances other than those prescribed or required for medical reasons: No Advance Directives: Yes Advance Directives on File: Yes Advance Directives Date on File: 03/07/22 Current occupational status: retired Cognitive needs: No Hearing needs: No Vision needs: Yes Physical Exam ED Vital Signs: Vital Signs - 24 hr 01/21/23 10:35 01/21/23 11:05 Temperature 98 F 97.6 F Pulse Rate 76 83 Respiratory Rate 18 15 Blood Pressure 174/74 H 173/60 H Pulse Oximetry 97 95 Oxygen Delivery Method Room Air Room Air BMI result Body Mass Index 31.8 GEN: Well developed, no acute distress, alert, oriented HEENT: Normocephalic, atraumatic, normal external ears, nose appears normal, no oropharyngeal edema or exudates Eyes: Normal to appearance Neck: Supple, no lymphadenopathy Respiratory: Talks in complete sentences, no respiratory distress, clear to auscultation bilaterally Cardiovascular: Regular rate and rhythm, no murmurs rubs or gallops Abdomen: Soft, RLQ tenderness, nondistended, no guarding, no rebound Back: No CVA tenderness Extremities: No clubbing cyanosis or edema Neurologic: No focal neurologic deficits, cranial nerves 2-12 intact, strength is 5/5 bilaterally, gait normal Skin: No rash Course Course Course Narrative: 59-year-old male with multiple medical problems presents with right-sided abdominal pain. Symptoms started approximately 3:00 a.m. this morning. Examination revealed tenderness to right lower quadrant without rebound or guarding. Patient will have IV fluids, analgesics, antiemetics, CT scan. Reevaluation(s) Reevaluation #1: patient is feeling much better. Etiology of symptoms not clear. No surgical intervention. Discharge instructions discussed. REasons to return for reevaluation also discussed Time: 15:57 Medical Decision Making Medical Decision Making [facility] Narrative: Presents with abdominal pain. Abdominal exam without peritoneal signs. No evidence of acute abdomen at this time. Well appearing. Low suspicion for acute hepatobiliary disease (includng acute cholecystitis), acute pancreatitis, PUD (including perforation), acute infectious processes (pneumonia, hepatitis, pyelonephritis), however, possible acute appendicitis, doubt vascular catastrophe, bowel obstruction or viscus perforation. Presentation not consistent with other acute, emergent causes of abdominal pain at this time. Plan: labs, UA, CT, pain control, serial reassessment Differential Diagnosis Differential Diagnoses: The differential diagnosis associated with the presentation includes (Appendicitis, UTI, pyelonephritis, kidney stone, diverticulitis, colitis, IBD, IBS, mesenteric adenitis, hepatitis) Admission/Observation Consideration of admission/observation: Escalation of care including admission/observation considered Lab Data [facility] Lab Attestation statement: I reviewed the patient's lab results. 01/21/23 13:46 01/21/23 13:46 Labs: Lab Results 01/21/23 01/21/23 01/21/23 Range/Units 13:46 13:46 14:22 WBC 19.7 H (4.8-10.8) X10*3/uL RBC 5.76 (4.60-5.80) X10*6/uL Hgb 16.0 (14.0-18.0) g/dl Hct 48.2 (42.0-52.0) % MCV 83.7 (80.0-98.0) fL MCH 27.8 (27.0-33.0) pg MCHC 33.2 (31.0-36.0) g/dl RDW 13.0 (11.0-16.0) % Plt Count 215 (160-400) X10*3/uL MPV 10.3 (9.4-12.4) fL Immature Gran % (Auto) 0.6 H (0.0-0.4) % Neut % (Auto) 89.5 H (45-73) % Lymph % (Auto) 4.9 L (20-40) % [place] % (Auto) 4.5 (2-11) % Eos % (Auto) 0.1 (0-4) % Baso % (Auto) 0.4 (0-2) % Lymph # (Auto) 1.0 L (1.2-4.9) X10*3/uL [place] # (Auto) 0.9 (0.1-1.2) X10*3/uL Eos # (Auto) 0.0 (0.0-0.4) X10*3/uL Baso # (Auto) 0.1 (0.0-0.2) X10*3/uL Abs Immat Gran (auto) 0.11 H (0.00-0.03) X10*3/uL Absolute Neuts (auto) 17.7 H (2.0-8.3) x10*3/uL Absolute Nucleated RBC 0.000 (0.0-0.012) X10*3/uL Nucleated RBC % (auto) 0.0 (0.0-0.2) /100WBC Sodium 140 (135-145) mmol/L Potassium 3.6 (3.3-5.1) mmol/L Chloride 102 (96-108) mmol/L Carbon Dioxide 24 (22-29) mmol/L Anion Gap 18 (12-20) BUN 21 H (9-16) mg/dL Creatinine 1.01 (0.5-1.4) mg/dL Estim Creat Clear Calc 80.8 Estimated GFR > 60 POC Glucose 177 H (60-115) mg/dL Random Glucose 193 H (60-115) mg/dL Calcium 9.4 (8.4-10.2) mg/dL Total Bilirubin 0.8 (0.0-1.0) mg/dL Direct Bilirubin 0.2 (0.0-0.5) mg/dL AST 29 (5-37) U/L ALT 30 (0-40) U/L Alkaline Phosphatase 106 (39-117) U/L Total Protein 7.8 (6.5-8.0) g/dL Albumin 4.7 (3.5-5.0) g/dL Lipase 33 (8-78) U/L Urine Color Urine Appearance Urine pH (5.0-9.0) Ur Specific [place] (1.005-1.025) Urine Protein (Neg-Trace) mg/dL Urine Glucose (UA) (Negative) mg/dL Urine Ketones (Negative) mg/dL Urine Blood (Negative) Urine Nitrite (Negative) Ur Leukocyte Esterase (Negative) Urine RBC (0-2) /HPF Urine WBC (0-5) /HPF Ur Squamous Epith Cells (0-2) /HPF Urine Bacteria (None Seen) Hyaline Casts (0-2) /LPF 01/21/23 Range/Units 14:25 WBC (4.8-10.8) X10*3/uL RBC (4.60-5.80) X10*6/uL Hgb (14.0-18.0) g/dl Hct (42.0-52.0) % MCV (80.0-98.0) fL MCH (27.0-33.0) pg MCHC (31.0-36.0) g/dl RDW (11.0-16.0) % Plt Count (160-400) X10*3/uL MPV (9.4-12.4) fL Immature Gran % (Auto) (0.0-0.4) % Neut % (Auto) (45-73) % Lymph % (Auto) (20-40) % [place] % (Auto) (2-11) % Eos % (Auto) (0-4) % Baso % (Auto) (0-2) % Lymph # (Auto) (1.2-4.9) X10*3/uL [place] # (Auto) (0.1-1.2) X10*3/uL Eos # (Auto) (0.0-0.4) X10*3/uL Baso # (Auto) (0.0-0.2) X10*3/uL Abs Immat Gran (auto) (0.00-0.03) X10*3/uL Absolute Neuts (auto) (2.0-8.3) x10*3/uL Absolute Nucleated RBC (0.0-0.012) X10*3/uL Nucleated RBC % (auto) (0.0-0.2) /100WBC Sodium (135-145) mmol/L Potassium (3.3-5.1) mmol/L Chloride (96-108) mmol/L Carbon Dioxide (22-29) mmol/L Anion Gap (12-20) BUN (9-16) mg/dL Creatinine (0.5-1.4) mg/dL Estim Creat Clear Calc Estimated GFR POC Glucose (60-115) mg/dL Random Glucose (60-115) mg/dL Calcium (8.4-10.2) mg/dL Total Bilirubin (0.0-1.0) mg/dL Direct Bilirubin (0.0-0.5) mg/dL AST (5-37) U/L ALT (0-40) U/L Alkaline Phosphatase (39-117) U/L Total Protein (6.5-8.0) g/dL Albumin (3.5-5.0) g/dL Lipase (8-78) U/L Urine Color Yellow Urine Appearance Clear Urine pH 6.0 (5.0-9.0) Ur Specific [place] 1.020 (1.005-1.025) Urine Protein 30 (1+) H (Neg-Trace) mg/dL Urine Glucose (UA) 100 H (Negative) mg/dL Urine Ketones 15 (Negative) mg/dL Urine Blood Negative (Negative) Urine Nitrite Negative (Negative) Ur Leukocyte Esterase Negative (Negative) Urine RBC 0-2 (0-2) /HPF Urine WBC 0-5 (0-5) /HPF Ur Squamous Epith Cells 0-2 (0-2) /HPF Urine Bacteria None Seen (None Seen) Hyaline Casts 0-2 (0-2) /LPF Independent Interpretation I performed an independent interpretation of an: CT Scan (CT abd NAD) Radiology Impression Discussion of test interpretation with radiology: I have reviewed the radiologist's reading. ( CT/CT abdomen pelvis w IV con IMPRESSION: No acute abnormality CT scan abdomen pelvis. Fleischner guidelines were followed. Dictated By:Alcides Vizcarra MDSigned By:<Electronically signed by Alcides Vizcarra MD in [place]>01/21/23 1539) Prescription Management I considered prescription management with: Pain Medication Chronic Conditions Patient?s care impacted by: Diabetes Medications Administered Discontinued Medications Generic Name Dose Route Start Last Admin Trade Name Luiz PRN Reason Stop Dose Admin Sodium Chloride 1,000 mls @ 999 mls/hr 01/21/23 12:00 01/21/23 14:27 Ns IV 01/21/23 13:00 Infused .Q1H1M SWETHA Infusion Iohexol 100 ml 01/21/23 14:44 01/21/23 14:45 Iohexol 350 Mg/Ml 100 Ml Infus..Btl IV 01/21/23 14:45 85 ml ONCE ONE Administration Ketorolac Tromethamine 15 mg 01/21/23 11:58 01/21/23 12:35 Ketorolac Tromethamine 30 Mg/Ml Vial IVPUSH 01/21/23 11:59 15 mg ONCE ONE Administration Ondansetron HCl 4 mg 01/21/23 11:58 01/21/23 12:30 Ondansetron Hcl 4 Mg/2 Ml Vial IVPUSH 01/21/23 11:59 4 mg ONCE ONE Administration Discharge Plan Discharge Clinical Impression: Abdominal pain, Leukocytosis Patient Disposition: Home, Self-Care Instructions: Leukocytosis (ED), Abdominal Pain (ED) Additional Instructions: You were seen today for abdominal pain. The etiology of your symptoms is not entirely clear. There is certainly no surgical intervention required. At this time, symptomatic management is appropriate. It should also be noted they white blood cell count was moderately elevated. She follow-up with her primary care provider to re-evaluate this over the next 1-2 weeks. I am also recommending close follow-up with her primary care doctor for a abdominal pain. Should her symptoms become worse, any concerning symptoms whatsoever, please return for re-evaluation. Prescriptions: New dicyclomine 20 mg tablet 20 mg PO QID PRN (Reason: abdominal discomfort) Qty: 14 0RF ondansetron 4 mg tablet,disintegrating 4 mg PO Q8H PRN (Reason: nausea and vomiting) Qty: 10 0RF No Action (DME) pen needle, diabetic [1st Tier Unifine Pentips] 31 gauge x 3/16 needle See Rx Instructions .ROUTE .MEDSUPPLY Qty: 4 3RF Rx Instructions: As directed inject insulin 4 times a day (DME) OneTouch Ultra Blue Test Strip Strip See Rx Instructions .ROUTE .MEDSUPPLY Qty: 4 3RF Rx Instructions: As directed check the blood sugar 4 times a day rosuvastatin 40 mg tablet 40 mg PO DAILY 90 Days Qty: 90 0RF glipizide 5 mg tablet extended release 24hr 5 mg PO DAILY 30 Days Qty: 90 3RF hydrochlorothiazide 25 mg tablet 25 mg PO DAILY 90 Days Qty: 90 2RF metoprolol tartrate 100 mg tablet 100 mg PO BID Qty: 180 2RF olmesartan 20 mg tablet 20 mg PO DAILY 90 Days Qty: 90 2RF amlodipine 5 mg tablet 5 mg PO DAILY Qty: 90 2RF aspirin 81 mg tablet,delayed release (DR/EC) 81 mg PO DAILY (DME) lancets [OneTouch Delica Plus Lancet] 30 gauge misc See Rx Instructions .Route Qty: 300 3RF Rx Instructions: As directed check the BS TID insulin glargine [Basaglar KwikPen U-100 Insulin] 100 unit/mL (3 mL) insulin pen 20 unit subcut QAM ezetimibe [Zetia] 10 mg tablet 10 mg PO DAILY Qty: 90 2RF Trulicity 1.5 mg/0.5 mL pen injector 1.5 mg subcut QWEEK 90 Days Qty: 6.5 3RF Prevalite 4 gram powder 4 g .ROUTE BID 90 Days Qty: 231 11RF Rx Instructions: 4 grams 2 times a day; Referrals: Po,Luke Hart MD [Primary Care Provider] - 2 days
[2023-01-21] MEDS: 0.9 % Sodium Chloride 1,000 ML 999 ML IV (12:26)
[2023-01-21] MEDS: ondansetron HCL 4 MG/2 ML VIAL IVPUSH (12:30)
[2023-01-21] MEDS: Ketorolac Tromethamine 30 MG/ML VIAL 15 MG IVPUSH (12:35)
[2023-01-21 13:51] LABS: MANUAL DIFF FLAG NO
[2023-01-21 13:57] LABS: Basophils Absolute Auto 0.1 X10*3/uL (0.0-0.2); Basophils Percent Auto 0.4 % (0-2); Eosinophils Percent Auto 0.1 % (0-4); Hematocrit 48.2 % (42.0-52.0); Imm Gran Abs Auto 0.11 X10*3/uL (0.00-0.03); Imm Gran Pct Auto 0.6 % (0.0-0.4); Lymphocytes Percent Auto 4.9 % (20-40); Mean Corpuscular HGB Conc 33.2 g/dl (31.0-36.0); Mean Corpuscular Hemoglobin 27.8 pg (27.0-33.0); Mean Corpuscular Volume 83.7 fL (80.0-98.0); Mean Platelet Volume 10.3 fL (9.4-12.4); Monocytes Absolute Auto 0.9 X10*3/uL (0.1-1.2); Monocytes Percent Auto 4.5 % (2-11); Neutrophils Absolute Auto 17.7 x10*3/uL (2.0-8.3); Neutrophils Percent Auto 89.5 % (45-73); Platelet Count 215 X10*3/uL (160-400); Red Blood Count 5.76 X10*6/uL (4.60-5.80); White Blood Count 19.7 X10*3/uL (4.8-10.8)
[2023-01-21 14:30] LABS: Alanine Aminotransferase 30 U/L (0-40); Albumin Level 4.7 g/dL (3.5-5.0); Alkaline Phosphatase 106 U/L (39-117); Anion Gap 18 (12-20); Aspartate Amino Transferase 29 U/L (5-37); Bilirubin Direct 0.2 mg/dL (0.0-0.5); Bilirubin Total 0.8 mg/dL (0.0-1.0); Blood Urea Nitrogen 21 mg/dL (9-16); Calcium 9.4 mg/dL (8.4-10.2); Carbon Dioxide 24 mmol/L (22-29); Chloride 102 mmol/L (96-108); Creatinine Clr Calc Pharmacy 80.8; Estimated Glomerular Filt Rate > 60; Glucose Random 193 mg/dL (60-115); Lipase 33 U/L (8-78); Potassium 3.6 mmol/L (3.3-5.1); Sodium 140 mmol/L (135-145); Total Protein 7.8 g/dL (6.5-8.0)
[2023-01-21 14:32] LABS: Glucose, Whole Blood 177 mg/dL (60-115)
[2023-01-21 14:39] LABS: Appearance Urine Clear; Color Urine Yellow; Glucose Urine UA 100 mg/dL (Negative); Leukocyte Esterase Urine Negative (Negative); Nitrite Urine Negative (Negative); UMIC TRIGGER UACC YES; Urine Blood Negative (Negative); Urine Ketones 15 mg/dL (Negative); Urine Protein 30 (1+) mg/dL (Neg-Trace)
[2023-01-21 14:44] LABS: Bacteria Urine None Seen (None Seen); Hyaline Casts Urine 0-2 /LPF (0-2); RBC Urine 0-2 /HPF (0-2); Squamous Epithelial Cell Urine 0-2 /HPF (0-2); WBC Urine 0-5 /HPF (0-5)
[2023-01-21] MEDS: iohexoL 350 MG/ML 100 ML INFUS..BTL IV (14:45)
== END 2023-01-21 16:38 | disposition home or self-care (01) ==
PROVIDERS: Emergency Provider Emergency Medicine; PCP Internal Medicine
DX: R10.31 Right lower quadrant pain (principal); D72.829 Elevated white blood cell count, unspecified; Z79.899 Other long term (current) drug therapy
CPT/HCPCS: 36415; 74177; 80048; 80076; 81001; 82947; 83690; 85025; 96361; 96374; 96375; 99284; 99285; J1885; J2405; Q9967

== ENCOUNTER 2023-01-30 03:03 | Inpatient (IN) | payer MEDICARE, SELFPAY ==
[2023-01-30] VITALS (11 sets, daily range): BP systolic 104–196; BP diastolic 33–86; PULSE 74–110; RESP 12–23; TEMP 36.3–37.6; O2SAT 92–98; BMI 30.7
--- NOTE | ~2023-01-30 | CT_ITS ---
EXAMINATION: CT ABDOMEN AND PELVIS WITH CONTRAST CLINICAL INFORMATION: Upper GI bleeding COMPARISON: 01/21/2023 TECHNIQUE: Multidetector volumetric images were obtained from the superior aspect of the liver through the pubic symphysis following administration 85 mL of Omnipaque 350 intravenous contrast. Sagittal and coronal reformatted images were obtained on the technologist's workstation. Oral contrast: No This CT examination was performed using dose optimization techniques as appropriate, variously including the following: *Automated exposure control *Adjustment of mA and/or kV according to patient size (this includes techniques or standardized protocols for targeted exams where dose is matched to indication/reason for exam; i.e. extremities or head) *Use of iterative reconstruction technique DLP: 783 mGy-cm FINDINGS: LUNG BASES: Coronary calcifications subsegmental atelectasis within the right middle lobe. LIVER, GALLBLADDER, AND BILIARY TREE: The liver is normal in size, shape, and attenuation. No focal hepatic lesion or biliary ductal dilatation is present. Cholecystectomy. PANCREAS: Unremarkable. SPLEEN: Unremarkable. ADRENAL GLANDS: Unremarkable. KIDNEYS AND URETERS: The kidneys are normal in size, shape, and attenuation. Simple cyst upper pole left kidney is benign. No follow-up imaging. No hydronephrosis, hydroureter, or calculi seen. No perinephric stranding. BLADDER: Unremarkable. GASTROINTESTINAL TRACT: Pancolonic diverticulosis, most concentrated within the sigmoid colon. No evidence of diverticulitis. Stomach and small bowel unremarkable. Normal appendix. ABDOMINAL WALL: No significant hernia is appreciated. LYMPH NODES: Normal. VASCULAR: Aorta is atherosclerotic but normal caliber. PELVIC VISCERA: Unremarkable. OSSEOUS STRUCTURES: No acute or suspicious osseous abnormalities. CT/CT abdomen pelvis w IV con IMPRESSION: * No acute findings within the abdomen or pelvis. * Pancolonic diverticulosis, most concentrated within the sigmoid colon. No evidence of diverticulitis. * Cholecystectomy.
--- NOTE | 2023-01-30 03:34 | ED.ABDPAIN ---
HPI - Abdominal Pain General Chief Complaint: Abdominal Pain Stated Complaint: Abd pain Time Seen by Provider: 01/30/23 03:33 Source: patient Mode of arrival: ambulatory Limitations: no limitations History of Present Illness HPI narrative: Patient with no history of peptic ulcer disease, no history of caffeine or NSAID use been having upper abdominal pain with nausea and vomiting for last 2 weeks patient was seen here on 01/21 CT scan and labs were stable, for last 2 hours patient vomiting coffee colored in been having dark stool for last 3 days no known history of kidney or liver disease no fever no recent trauma patient was seen by PCP who started patient on Prilosec yesterday patient denies any dizziness patient never had endoscopy in the past Related Data Home Medications Medication Instructions Recorded Confirmed aspirin 81 mg tablet,delayed 81 mg PO DAILY 10/05/20 01/28/23 release insulin glargine 100 unit/mL (3 20 unit subcut QAM 08/30/22 01/28/23 mL) subcutaneous pen (Basaglar KwikPen U-100 Insulin) Previous Rx's Medication Instructions Recorded pen needle, diabetic 31 gauge x #4 boxes 04/07/2101/03 (1st Tier Unifine Pentips) lancets 30 gauge (120 SportsTouch Delica #300 ea 01/23/22 Plus Lancet) rosuvastatin 40 mg tablet 40 mg PO DAILY 90 days #90 tabs 03/01/22 glipizide 5 mg tablet, extended 5 mg PO DAILY 30 days #90 tabs 06/04/22 release 24 hr dulaglutide 1.5 mg/0.5 mL 1.5 mg (0.5 mL) subcut QWEEK 90 08/30/22 subcutaneous pen injector days #6.5 mL ezetimibe 10 mg tablet (Zetia) 10 mg PO DAILY #90 tabs 08/30/22 hydrochlorothiazide 25 mg tablet 25 mg PO DAILY 90 days #90 caps 09/29/22 cholestyramine-aspartame 4 gram 4 g .Route BID 90 days #231 grams 12/17/22 oral powder (Prevalite) amlodipine 5 mg tablet 5 mg PO DAILY #90 tabs 12/31/22 metoprolol tartrate 100 mg tablet 100 mg PO BID #180 tabs 12/31/22 olmesartan 20 mg tablet 20 mg PO DAILY 90 days #90 tabs 12/31/22 dicyclomine 20 mg tablet 20 mg PO QID PRN abdominal 01/21/23 discomfort #14 tabs ondansetron 4 mg disintegrating 4 mg PO Q8H PRN nausea and 01/21/23 tablet vomiting #10 tabs omeprazole 20 mg capsule,delayed 20 mg PO DAILY 30 days #30 caps 01/28/23 release blood sugar diagnostic (OneTouch #100 ea 01/29/23 Ultra Test strips) blood-glucose meter (OneTouch #1 ea 01/29/23 Ultra2 Meter) lancets (OneTouch UltraSoft #200 ea 01/29/23 Lancets) Allergies Allergy/AdvReac Type Severity Reaction Status Date / Time olmesartan Allergy Unknown Diarrhea Verified 01/28/23 08:58 Review of Systems Review of Systems Yes all other systems are reviewed and are negative [facility] Past Medical History Medical History Anxiety and depression Coronary artery disease Diarrhea GERD (gastroesophageal reflux disease) Humeral fracture Hypercholesterolemia Hypertension Obesity (BMI 30-39.9) Screening for prostate cancer Type 2 diabetes mellitus with hyperglycemia Vitamin D deficiency Surgical History History of cholecystectomy History of colonoscopy History of coronary artery bypass graft History of repair of rotator cuff History of tonsillectomy History of umbilical hernia repair Family History Family History Father Lung cancer Mother Diabetes Hypertension Social History Social History Housing: House Patient Tobacco Use Status: Never used Tobacco e-Cigarette/Vaping Use: Never Used Second Hand Smoke Exposure: No Advance Directives: Yes Advance Directives on File: Yes Advance Directives Date on File: 03/07/22 service: No Current occupational status: retired Cognitive needs: No Hearing needs: No Vision needs: Yes (glasses) Physical Exam ED Vital Signs: Vital Signs - 24 hr 01/30/23 03:12 Temperature 98.3 F Pulse Rate 110 H Respiratory Rate 16 Blood Pressure 158/82 H Pulse Oximetry 98 Oxygen Delivery Method Room Air BMI result Body Mass Index 30.7 Appearance: Alert. Oriented X3. No acute distress. Eyes: No pallor or icterus ENT: Pharynx normal. Oral Mucosa moist Neck: Normal inspection. Neck supple. CVS: Normal heart rate and rhythm. Pulses normal. Respiratory: No respiratory distress. Equal air entry bilateral, no wheezing/rales/rhonchi Abdomen: Soft , epigastric tenderness, patient actively vomiting coffee color, Bowel sounds are present, no mass palpable, no CVA tenderness rectal; dark brown stool guaiac positive+ Skin: Skin warm and dry. Normal skin color. Normal skin turgor. Extremities: No lower extremity edema. No calf tenderness Neuro: Oriented X 3. No motor deficit. No sensory deficit.No cerebellar signs , cranial nerves II-XII intact Medical Decision Making Medical Decision Making [facility] Narrative: Patient with upper GI bleed likely from peptic ulcer disease no prior endoscopy, a drop of hemoglobin from 16 to 14.9 at this time patient's vitals are stable per request of hospitalist will do another CT scan with IV contrast to rule out any perforation or free air. Will admit patient for further evaluation by GI Consult Healthcare Provider Management of the patient was discussed with: Hospitalist Lab Data [facility] Lab Attestation statement: I reviewed the patient's lab results. 01/30/23 03:52 01/30/23 03:52 Labs: Lab Results 01/30/23 01/30/23 01/30/23 Range/Units 03:52 03:52 03:52 WBC 20.5 H (4.8-10.8) X10*3/uL RBC 5.43 (4.60-5.80) X10*6/uL Hgb 14.9 (14.0-18.0) g/dl Hct 44.0 (42.0-52.0) % MCV 81.0 (80.0-98.0) fL MCH 27.4 (27.0-33.0) pg MCHC 33.9 (31.0-36.0) g/dl RDW 12.8 (11.0-16.0) % Plt Count 288 D (160-400) X10*3/uL MPV 10.8 (9.4-12.4) fL Immature Gran % (Auto) 0.6 H (0.0-0.4) % Neut % (Auto) 78.5 H (45-73) % Lymph % (Auto) 9.9 L (20-40) % [place] % (Auto) 10.5 (2-11) % Eos % (Auto) 0.1 (0-4) % Baso % (Auto) 0.4 (0-2) % Lymph # (Auto) 2.0 (1.2-4.9) X10*3/uL [place] # (Auto) 2.2 H (0.1-1.2) X10*3/uL Eos # (Auto) 0.0 (0.0-0.4) X10*3/uL Baso # (Auto) 0.1 (0.0-0.2) X10*3/uL Abs Immat Gran (auto) 0.12 H (0.00-0.03) X10*3/uL Absolute Neuts (auto) 16.1 H (2.0-8.3) x10*3/uL Absolute Nucleated RBC 0.000 (0.0-0.012) X10*3/uL Nucleated RBC % (auto) 0.0 (0.0-0.2) /100WBC Smear Tech's Comments VERIFIED PT 14.5 H (10.0-13.1) SEC INR 1.3 H (0.9-1.1) APTT 32.1 (26.0-36.4) SEC Sodium 136 (135-145) mmol/L Potassium 3.8 (3.3-5.1) mmol/L Chloride 93 L (96-108) mmol/L Carbon Dioxide 29 (22-29) mmol/L Anion Gap 18 (12-20) BUN 18 H (9-16) mg/dL Creatinine 1.00 (0.5-1.4) mg/dL Estim Creat Clear Calc 80.1 Estimated GFR > 60 Random Glucose 219 H (60-115) mg/dL Calcium 9.2 (8.4-10.2) mg/dL Total Bilirubin 0.6 (0.0-1.0) mg/dL AST 23 (5-37) U/L ALT 27 (0-40) U/L Alkaline Phosphatase 101 (39-117) U/L Total Protein 6.5 (6.5-8.0) g/dL Albumin 3.9 (3.5-5.0) g/dL Lipase 36 (8-78) U/L Gastric Occult Blood (NEG) COVID-19 (ROSANNA) (Negative) COVID-19 Clin Com Blood Type Antibody Screen 01/30/23 01/30/23 01/30/23 Range/Units 03:52 03:56 04:14 WBC (4.8-10.8) X10*3/uL RBC (4.60-5.80) X10*6/uL Hgb (14.0-18.0) g/dl Hct (42.0-52.0) % MCV (80.0-98.0) fL MCH (27.0-33.0) pg MCHC (31.0-36.0) g/dl RDW (11.0-16.0) % Plt Count (160-400) X10*3/uL MPV (9.4-12.4) fL Immature Gran % (Auto) (0.0-0.4) % Neut % (Auto) (45-73) % Lymph % (Auto) (20-40) % [place] % (Auto) (2-11) % Eos % (Auto) (0-4) % Baso % (Auto) (0-2) % Lymph # (Auto) (1.2-4.9) X10*3/uL [place] # (Auto) (0.1-1.2) X10*3/uL Eos # (Auto) (0.0-0.4) X10*3/uL Baso # (Auto) (0.0-0.2) X10*3/uL Abs Immat Gran (auto) (0.00-0.03) X10*3/uL Absolute Neuts (auto) (2.0-8.3) x10*3/uL Absolute Nucleated RBC (0.0-0.012) X10*3/uL Nucleated RBC % (auto) (0.0-0.2) /100WBC Smear Tech's Comments PT (10.0-13.1) SEC INR (0.9-1.1) APTT (26.0-36.4) SEC Sodium (135-145) mmol/L Potassium (3.3-5.1) mmol/L Chloride (96-108) mmol/L Carbon Dioxide (22-29) mmol/L Anion Gap (12-20) BUN (9-16) mg/dL Creatinine (0.5-1.4) mg/dL Estim Creat Clear Calc Estimated GFR Random Glucose (60-115) mg/dL Calcium (8.4-10.2) mg/dL Total Bilirubin (0.0-1.0) mg/dL AST (5-37) U/L ALT (0-40) U/L Alkaline Phosphatase (39-117) U/L Total Protein (6.5-8.0) g/dL Albumin (3.5-5.0) g/dL Lipase (8-78) U/L Gastric Occult Blood POSITIVE (NEG) COVID-19 (ROSANNA) Negative (Negative) COVID-19 Clin Com See Note Blood Type A Positive Antibody Screen NEGATIVE Medications Administered Generic Name Dose Route Start Last Admin Trade Name Freq PRN Reason Stop Dose Admin Sodium Chloride 1,000 mls @ 100 mls/hr 01/30/23 04:30 01/30/23 04:48 Ns IVCONT 100 mls/hr .Q10H SWETHA Administration Insulin Human Lispro 0 unit 01/30/23 04:30 01/30/23 05:59 Insulin Lispro 100 Unit/Ml 3 Ml Vial SUBCUT 2 unit Q6H SWETHA Administration Protocol Discontinued Medications Generic Name Dose Route Start Last Admin Trade Name Freq PRN Reason Stop Dose Admin Sodium Chloride 1,000 mls @ 999 mls/hr 01/30/23 03:43 01/30/23 04:13 Ns IV 01/30/23 04:43 999 mls/hr .Q1H1M ONE Administration Iohexol 85 ml 01/30/23 05:22 01/30/23 05:24 Iohexol 350 Mg/Ml 100 Ml Infus..Btl IV 01/30/23 05:23 85 ml ONCE ONE Administration Ondansetron HCl 4 mg 01/30/23 04:50 01/30/23 04:54 Ondansetron Hcl 4 Mg/2 Ml Vial IVPUSH 01/30/23 04:51 4 mg ONCE ONE Administration Pantoprazole Sodium 80 mg 01/30/23 03:44 01/30/23 04:13 Pantoprazole Sodium 40 Mg/10 Ml Vial IVPUSH 01/30/23 03:45 80 mg ONCE ONE Administration Discharge Plan Discharge Clinical Impression: Acute upper gastrointestinal bleeding Patient Disposition: Admitted As Inpatient
[2023-01-30 04:06] LABS: Basophils Absolute Auto 0.1 X10*3/uL (0.0-0.2); Basophils Percent Auto 0.4 % (0-2); Eosinophils Percent Auto 0.1 % (0-4); Hemoglobin 14.9 g/dl (14.0-18.0); Imm Gran Abs Auto 0.12 X10*3/uL (0.00-0.03); Imm Gran Pct Auto 0.6 % (0.0-0.4); Lymphocytes Percent Auto 9.9 % (20-40); MANUAL DIFF FLAG SCAN; Mean Corpuscular HGB Conc 33.9 g/dl (31.0-36.0); Mean Corpuscular Hemoglobin 27.4 pg (27.0-33.0); Mean Platelet Volume 10.8 fL (9.4-12.4); Monocytes Absolute Auto 2.2 X10*3/uL (0.1-1.2); Monocytes Percent Auto 10.5 % (2-11); Neutrophils Absolute Auto 16.1 x10*3/uL (2.0-8.3); Neutrophils Percent Auto 78.5 % (45-73); Platelet Count 288 X10*3/uL (160-400); Red Blood Count 5.43 X10*6/uL (4.60-5.80); Red Cell Distribution Width 12.8 % (11.0-16.0); SCAN SMEAR FLAG 1; White Blood Count 20.5 X10*3/uL (4.8-10.8)
[2023-01-30 04:07] LABS: GASOB Int Neg Ctl Valid YES; GASOB Int Pos Ctl Valid YES; Occult Blood Gastric POSITIVE (NEG)
[2023-01-30 04:12] LABS: INTERNATIONAL NORM RATIO 1.3 (0.9-1.1); Prothrombin Time 14.5 SEC (10.0-13.1)
[2023-01-30] MEDS: 0.9 % Sodium Chloride 1,000 ML 999 ML IV (04:13)
[2023-01-30] MEDS: Pantoprazole Sodium 40 MG/10 ML VIAL 80 MG IVPUSH ×2 (04:13→17:02)
[2023-01-30 04:15] LABS: Partial Thromboplastin Time 32.1 SEC (26.0-36.4)
[2023-01-30 04:22] LABS: Alanine Aminotransferase 27 U/L (0-40); Albumin Level 3.9 g/dL (3.5-5.0); Alkaline Phosphatase 101 U/L (39-117); Anion Gap 18 (12-20); Aspartate Amino Transferase 23 U/L (5-37); Bilirubin Total 0.6 mg/dL (0.0-1.0); Blood Urea Nitrogen 18 mg/dL (9-16); Calcium 9.2 mg/dL (8.4-10.2); Carbon Dioxide 29 mmol/L (22-29); Chloride 93 mmol/L (96-108); Creatinine Clr Calc Pharmacy 80.1; Estimated Glomerular Filt Rate > 60; Glucose Random 219 mg/dL (60-115); Lipase 36 U/L (8-78); Potassium 3.8 mmol/L (3.3-5.1); Sodium 136 mmol/L (135-145); Total Protein 6.5 g/dL (6.5-8.0)
[2023-01-30 04:24] LABS: SLIDE REVIEW VERIFIED
--- NOTE | 2023-01-30 04:25 | P.HPHOSP_ITS ---
History of Present Illness Date of Service: 01/30/23 Chief Complaint: GI bleed This is a 67-year-old male with pertinent history of insulin-dependent diabetes mellitus, essential hypertension, CAD status post CABG, mixed hyperlipidemia who presents to the emergency department for evaluation of blood in vomitus. P atient states he has been having persistent vomiting that started 1 day prior to presentation. It is associated with abdominal discomfort. On the day of presentation, patient started having blood in vomitus. Also noticed 1 episode of dark stool. Denies any similar complaints in the past. Denies history of NSAID use. Not on anticoagulants but does use aspirin. Had a previous normal colonoscopy as per the . Denies fever, chills, chest discomfort, palpitations, shortness of breath, changes in urinary habits. Of the emergency department, patient was noted to have blood in vomitus. Review of Systems Constitutional: Constitutional: Reports fatigue and Reports malaise Cardiovascular: Cardiovascular: Reports no additional cardiovascular complaints Respiratory: Respiratory: Reports no additional respiratory complaints Gastrointestinal: Gastrointestinal: Reports melena and Reports coffee ground emesis Genitourinary: Genitourinary: Reports no additional male genitourinary complaints Endocrine: Endocrine: Reports fatigue [facility] Medical History Anxiety and depression Coronary artery disease Diarrhea GERD (gastroesophageal reflux disease) Humeral fracture Hypercholesterolemia Hypertension Obesity (BMI 30-39.9) Screening for prostate cancer Type 2 diabetes mellitus with hyperglycemia Vitamin D deficiency Family History Father Lung cancer Mother Diabetes Hypertension Surgical History History of cholecystectomy History of colonoscopy History of coronary artery bypass graft History of repair of rotator cuff History of tonsillectomy History of umbilical hernia repair Social History Housing: House Alcohol intake: never Patient Tobacco Use Status: Never used Tobacco Smoked in Last 30 Days: No e-Cigarette/Vaping Use: Never Used Second Hand Smoke Exposure: No Use of substances other than those prescribed or required for medical reasons: No Advance Directives: Yes Advance Directives on File: Yes Advance Directives Date on File: 03/07/22 Nutrition Risks: No Nutritional Risk service: No Current occupational status: retired Cognitive needs: No Hearing needs: No Vision needs: Yes (glasses) Meds Allergies Allergy/AdvReac Type Severity Reaction Status Date / Time olmesartan Allergy Unknown Diarrhea Verified 01/28/23 08:58 Active Medications: Current Medications Sodium Chloride (Ns) 1,000 mls @ 999 mls/hr IV .Q1H1M ONE Stop: 01/30/23 04:43 Last Admin: 01/30/23 04:13 Dose: 999 mls/hr Sodium Chloride (Ns) 1,000 mls @ 100 mls/hr IVCONT .Q10H [facility] Home Medications Medication Instructions Recorded Confirmed Last Taken Type aspirin 81 mg tablet,delayed 81 mg PO DAILY 10/05/20 01/28/23 Unknown History release insulin glargine 100 unit/mL (3 20 unit subcut QAM 08/30/22 01/28/23 Unknown History mL) subcutaneous pen (Basaglar KwikPen U-100 Insulin) Physical Exam Vital Signs and Narrative: Vital Signs: Last Vital Signs Temp 98.3 F 01/30/23 03:12 Pulse 110 H 01/30/23 03:12 Resp 16 01/30/23 03:12 BP 158/82 H 01/30/23 03:12 Pulse Ox 98 01/30/23 03:12 O2 Del Method Room Air 01/30/23 03:12 BMI result Body Mass Index 30.7 Middle-aged male lying in bed in no distress Neck supple, no JVD Tachycardic with regular rhythm, S1-S2 heard Regular breath sounds bilaterally, no wheezing or crackles appreciated Abdomen soft nontender, no guarding, no rigidity Patient is awake, alert and oriented to self, place, time and person ; no focal motor deficit Psych: Normal mood No pedal edema Results Labs 01/30/23 03:52 01/30/23 03:52 Labs: Laboratory Results - last 24 hr 01/30/23 01/30/23 01/30/23 03:52 03:52 03:52 MCV 81.0 MCH 27.4 MCHC 33.9 RDW 12.8 Plt Count 288 D MPV 10.8 Immature Gran % (Auto) 0.6 H Neut % (Auto) 78.5 H Lymph % (Auto) 9.9 L [place] % (Auto) 10.5 Eos % (Auto) 0.1 Baso % (Auto) 0.4 Lymph # (Auto) 2.0 [place] # (Auto) 2.2 H Eos # (Auto) 0.0 Baso # (Auto) 0.1 Abs Immat Gran (auto) 0.12 H Absolute Neuts (auto) 16.1 H Absolute Nucleated RBC 0.000 Nucleated RBC % (auto) 0.0 Smear Tech's Comments VERIFIED PT 14.5 H INR 1.3 H APTT 32.1 Anion Gap 18 Estim Creat Clear Calc 80.1 Estimated GFR > 60 Random Glucose 219 H Calcium 9.2 Total Bilirubin 0.6 AST 23 ALT 27 Alkaline Phosphatase 101 Total Protein 6.5 Albumin 3.9 Lipase 36 Gastric Occult Blood 01/30/23 03:52 MCV MCH MCHC RDW Plt Count MPV Immature Gran % (Auto) Neut % (Auto) Lymph % (Auto) [place] % (Auto) Eos % (Auto) Baso % (Auto) Lymph # (Auto) [place] # (Auto) Eos # (Auto) Baso # (Auto) Abs Immat Gran (auto) Absolute Neuts (auto) Absolute Nucleated RBC Nucleated RBC % (auto) Smear Tech's Comments PT INR APTT Anion Gap Estim Creat Clear Calc Estimated GFR Random Glucose Calcium Total Bilirubin AST ALT Alkaline Phosphatase Total Protein Albumin Lipase Gastric Occult Blood POSITIVE Assessment and Plan (1) Hematemesis: Status: Acute Plan This is a 67-year-old male with pertinent history of insulin-dependent diabetes mellitus, essential hypertension, CAD status post CABG, mixed hyperlipidemia who presents to the emergency department for evaluation of blood in vomitus. #. Hematemesis: Will admit patient with cardiac monitoring. Resuscitating with IV crystalloids. Given Protonix IV 80 mg x 1 in the ER. Consulting GI, appreciate assistance. Patient also stated he had an episode of dark stool, ?GI bleed. Will keep patient NPO #. Insulin-dependent diabetes mellitus with hyperglycemia: Initiating Accu- Cheks with sliding scale insulin every 6 hours. #. Essential hypertension: Hold antihypertensives #. CAD status post CABG: Hold aspirin. #. Mixed hyperlipidemia: On Zetia Med rec pending DVT prophylaxis: Mechanical Full code NPO Admit as inpatient and will require two night minimum hospital stay for close monitoring of hemodynamics. Specialist consult pending Time Spent With Patient Time: Total time managing care of this patient today ____ minutes. Quality Stroke Does the patient have a stroke diagnosis?: No VTE Prior VTE?: No VTE Risk Level:: Medical - moderate - high VTE Device Contraindication: N/A - Device Ordered VTE Drug Contraindication: Treatment Not Indicated
[2023-01-30] MEDS: 0.9 % Sodium Chloride 1,000 ML 100 ML IVCONT ×2 (04:48→17:29)
[2023-01-30 04:52] LABS: COVID-19 Test Negative (Negative); IDNOW Serial# 6674DD1D
[2023-01-30] MEDS: ondansetron HCL 4 MG/2 ML VIAL IVPUSH (04:54)
[2023-01-30] MEDS: iohexoL 350 MG/ML 100 ML INFUS..BTL 85 ML IV (05:24)
[2023-01-30 05:27] LABS: Basophils Percent Auto 0.2 % (0-2); Eosinophils Percent Auto 0.2 % (0-4); Hematocrit 41.2 % (42.0-52.0); Hemoglobin 13.9 g/dl (14.0-18.0); Imm Gran Abs Auto 0.15 X10*3/uL (0.00-0.03); Imm Gran Pct Auto 0.8 % (0.0-0.4); Lymphocytes Absolute Auto 1.3 X10*3/uL (1.2-4.9); MANUAL DIFF FLAG SCAN; Mean Corpuscular HGB Conc 33.7 g/dl (31.0-36.0); Mean Corpuscular Hemoglobin 27.5 pg (27.0-33.0); Mean Corpuscular Volume 81.4 fL (80.0-98.0); Mean Platelet Volume 11.7 fL (9.4-12.4); Monocytes Absolute Auto 1.8 X10*3/uL (0.1-1.2); Monocytes Percent Auto 9.4 % (2-11); Neutrophils Absolute Auto 15.5 x10*3/uL (2.0-8.3); Neutrophils Percent Auto 82.4 % (45-73); PLT CLUMP 1; Red Blood Count 5.06 X10*6/uL (4.60-5.80); Red Cell Distribution Width 12.8 % (11.0-16.0); SCAN SMEAR FLAG 1
[2023-01-30 05:30] LABS: White Blood Count 18.8 X10*3/uL (4.8-10.8)
--- NOTE | 2023-01-30 05:30 | PC.NURSE ---
Pt A&Ox4, reports 8/10 RUQ abd pain, reports pain is sharp with nausea and one episode of vomiting. ABD is tender to touch to RUQ, hypoactive bowel sounds. While here Pt had multiple episodes of vomiting dark brown liquid. IV line established, meds given as documented. at bedside.
[2023-01-30 05:38] LABS: Anion Gap 18 (12-20); Blood Urea Nitrogen 17 mg/dL (9-16); Calcium 8.7 mg/dL (8.4-10.2); Carbon Dioxide 28 mmol/L (22-29); Chloride 95 mmol/L (96-108); Creatinine Clr Calc Pharmacy 84.3; Estimated Glomerular Filt Rate > 60; Glucose Random 206 mg/dL (60-115); Potassium 3.7 mmol/L (3.3-5.1); Sodium 137 mmol/L (135-145)
[2023-01-30 05:44] LABS: Platelet Count 224 X10*3/uL (160-400)
[2023-01-30] MEDS: Insulin Lispro 100 UNIT/ML 3 ML VIAL SUBCUT ×2 (05:59→12:11)
[2023-01-30 06:00] LABS: Glucose, Whole Blood 195 mg/dL (60-115)
[2023-01-30 06:27] LABS: OBS Int Ctl Valid YES; OBS1 POSITIVE (NEGATIVE)
--- NOTE | 2023-01-30 08:14 | PHA.MEDREC ---
Pharmacy Consult ? Medication Reconciliation Pharmacy has completed the medication reconciliation. Med rec complete using list from prior discharge from [facility]. Pt says this is current list.
[2023-01-30] MEDS: Metoprolol Tartrate 100 MG TABLET PO ×2 (09:50→20:51)
[2023-01-30] MEDS: Valsartan 80 MG TABLET PO (09:51)
[2023-01-30] MEDS: hydroCHLOROthiazide 25 MG TABLET PO (09:51)
[2023-01-30] MEDS: Atorvastatin Calcium 80 MG TABLET PO (09:51)
[2023-01-30] MEDS: amLODIPine Besylate 5 MG TABLET PO (09:51)
[2023-01-30] MEDS: Ezetimibe 10 MG TABLET PO (09:51)
--- NOTE | 2023-01-30 10:27 | MHC.CM.PN ---
Met with patient and , Candy, in regards to discharge planning. Patient lives with Candy, ambulates independently and had no services prior to coming to the hospital. No services anticipated to be needed at discharge. PCP verified. Patient has a HCP at home and will attempt to obtain a copy. Patient received 5 Pfizer vaccines. IMM explained and signed. Candy will transport patient home when medically stable. Continue to monitor for d/c needs.
[2023-01-30 11:39] LABS: Glucose, Whole Blood 165 mg/dL (60-115)
--- NOTE | 2023-01-30 12:19 | PC.NURSE ---
Patient with AC IV that kept having down stream occlusion
--- NOTE | 2023-01-30 12:20 | PC.NURSE ---
Patient with AC IV that was having down stream occlusions with IV pump. New IV obtained in patient's hand.
--- NOTE | 2023-01-30 14:25 | MHC.SHP ---
Pre-Procedural Eval Section A Date of Service: 01/30/23 The patient is an INPATIENT: Yes Changes since office visit: No Cold of Flu in the past 2 weeks, No New Medical Problems, No Changes in Medication and No Patient answered all questions The History & Physical has been completed within 30 days and I have reviewed it.: Yes Section B Chief Complaint: GI Bleed Allergies: Allergies Allergy/AdvReac Type Severity Reaction Status Date / Time olmesartan Allergy Unknown Diarrhea Verified 01/28/23 08:58 Plan I have reviewed the history and physical and performed a pertinent physical examination on my patient. No changes have occurred unless specified. Time Spent With Patient Time: Total time managing care of this patient today ____ minutes.
--- NOTE | 2023-01-30 14:26 | PM.EVENT ---
Event Note Date of Service: 01/30/23 Event Note: GI consult dictated EGD this pm for further evaluation of upper GI bleeding Discussed risks and benefits with patient who agrees to proceed continue ppi Time Spent With Patient Time: Total time managing care of this patient today ____ minutes.
--- NOTE | 2023-01-30 14:30 | P.CONAN_ITS ---
HPI - Anesthesia Eval Consult details Narrative: ro gi bleed PMFSH Active Problems Active Problems: All Active Problems (Updated 01/30/23 @ 04:57 by Dax Humphrey MD) Acute upper gastrointestinal bleeding (Acute) Hematemesis (Acute) GI bleed (Acute) Gastritis (Acute) Gastroparesis (Acute) BPH with obstruction/lower urinary tract symptoms (Acute) Hearing difficulty (Acute) Frequency of micturition (Acute) Diarrhea (Acute) Tubular adenoma of colon (Acute) LLQ abdominal pain (Acute) Lumbar spine strain (Acute) Shingles (herpes zoster) polyneuropathy (Acute) Acute pain associated with herpes zoster (Acute) Colon cancer screening (Acute) Generalized anxiety disorder (Acute) Low back pain (Acute) Adult general medical exam (Acute) Constipation (Acute) Vitamin D deficiency (Acute) Anxiety and depression (Acute) Type 2 diabetes mellitus with hyperglycemia (Acute) Hypercholesterolemia (Acute) Obesity (BMI 30-39.9) (Acute) Coronary artery disease (Acute) Hypertension (Acute) Past Medical History Medical History Anxiety and depression Coronary artery disease Diarrhea GERD (gastroesophageal reflux disease) Humeral fracture Hypercholesterolemia Hypertension Obesity (BMI 30-39.9) Screening for prostate cancer Type 2 diabetes mellitus with hyperglycemia Vitamin D deficiency Family History Family History Father Lung cancer Mother Diabetes Hypertension Family history of problems with anesthesia: No Surgical History Surgical History History of cholecystectomy History of colonoscopy History of coronary artery bypass graft History of repair of rotator cuff History of tonsillectomy History of umbilical hernia repair History of Problems with Anesthesia: No Social History Social History Housing: House Alcohol intake: never Patient Tobacco Use Status: Never used Tobacco Smoked in Last 30 Days: No e-Cigarette/Vaping Use: Never Used Second Hand Smoke Exposure: No Use of substances other than those prescribed or required for medical reasons: No Advance Directives: Yes Advance Directives on File: Yes Advance Directives Date on File: 03/07/22 Nutrition Risks: No Nutritional Risk service: No Current occupational status: retired Cognitive needs: No Hearing needs: No Vision needs: Yes (glasses) Meds Allergies Allergy/AdvReac Type Severity Reaction Status Date / Time olmesartan Allergy Unknown Diarrhea Verified 01/28/23 08:58 Active Medications: Current Medications Acetaminophen (Acetaminophen 325 Mg Tablet) 650 mg PO Q6H PRN PRN Reason: Pain, Mild (Pain Scale 1-3) Amlodipine Besylate (Amlodipine Besylate 5 Mg Tablet) 5 mg PO DAILY [facility]; Protocol Last Admin: 01/30/23 09:51 Dose: 5 mg Atorvastatin Calcium (Atorvastatin Calcium 80 Mg Tablet) 80 mg PO DAILY [facility] Last Admin: 01/30/23 09:51 Dose: 80 mg Cholestyramine Resin (Cholestyramine (With Sugar) 4 Gm Powd.Pack) 4 gm PO BID PRN PRN Reason: Diarrhea Dicyclomine HCl (Dicyclomine Hcl 10 Mg Capsule) 20 mg PO QID PRN PRN Reason: abdominal discomfort Ezetimibe (Ezetimibe 10 Mg Tablet) 10 mg PO DAILY [facility] Last Admin: 01/30/23 09:51 Dose: 10 mg Glucose (Glucose Gel 15 Gm Gel..Gram.) 15 gm PO Q15M PRN; Protocol PRN Reason: per Hypoglycemia Standing Ord. Hydrochlorothiazide (Hydrochlorothiazide 25 Mg Tablet) 25 mg PO DAILY [facility]; Protocol Last Admin: 01/30/23 09:51 Dose: 25 mg Sodium Chloride (Ns) 1,000 mls @ 100 mls/hr IVCONT .Q10H SWETHA Last Admin: 01/30/23 04:48 Dose: 100 mls/hr Dextrose (D10) 250 mls @ 750 mls/hr IV Q15M PRN; Protocol PRN Reason: per Hypoglycemia Standing Ord. Insulin Human Lispro (Insulin Lispro 100 Unit/Ml 3 Ml Vial) 0 unit SUBCUT Q6H [facility]; Protocol Last Admin: 01/30/23 12:11 Dose: 2 unit Melatonin (Melatonin 3 Mg Tablet) 6 mg PO BEDTIME PRN PRN Reason: Insomnia Metoprolol Tartrate (Metoprolol Tartrate 100 Mg Tablet) 100 mg PO BID [facility]; Protocol Last Admin: 01/30/23 09:50 Dose: 100 mg Ondansetron HCl (Ondansetron Hcl 4 Mg/2 Ml Vial) 4 mg IVPUSH Q8H PRN PRN Reason: Nausea and Vomiting Pharmacy Consult (Consult Rx Perform Med Rec) 1 each MISCELLANE ONCE PRN PRN Reason: Consult order Sodium Chloride (0.9 % Sodium Chloride Flush 3 Ml Syringe) 3 ml IVFLUSH QSHIFT [facility] Last Admin: 01/30/23 08:19 Dose: Not Given Valsartan (Valsartan 80 Mg Tablet) 80 mg PO DAILY [facility] Last Admin: 01/30/23 09:51 Dose: 80 mg Home Medications Medication Instructions Recorded Confirmed Last Taken Type aspirin 81 mg tablet,delayed 81 mg PO DAILY 10/05/20 01/30/23 01/29/23 History release insulin glargine 100 unit/mL (3 20 unit subcut DAILY 08/30/22 01/30/23 01/29/23 History mL) subcutaneous pen (Basaglar KwikPen U-100 Insulin) cholestyramine-aspartame 4 gram 4 g PO BID PRN Diarrhea 01/30/23 01/30/23 Unknown History oral powder (Prevalite) dulaglutide 1.5 mg/0.5 mL 1.5 mg subcut [facility] 01/30/23 01/30/23 01/27/23 History subcutaneous pen injector Exam Exam Date and Time: January 30, 2023 1430 Height,Weight and Vital Signs: Height 5 ft 9 in Weight 94.347 kg Last Vital Signs Temp 98.2 F 01/30/23 04:59 Pulse 87 01/30/23 13:34 Resp 23 H 01/30/23 13:34 BP 145/66 H 01/30/23 13:34 Pulse Ox 95 01/30/23 13:34 O2 Del Method Room Air 01/30/23 13:34 Pertinent Lab Results Pertinent Lab Results: Laboratory Tests 01/30/23 01/30/23 01/30/23 03:52 03:52 03:52 WBC 20.5 H RBC 5.43 Hgb 14.9 Hct 44.0 MCV 81.0 MCH 27.4 MCHC 33.9 RDW 12.8 Plt Count 288 D MPV 10.8 Immature Gran % (Auto) 0.6 H Neut % (Auto) 78.5 H Lymph % (Auto) 9.9 L Bartholomew % (Auto) 10.5 Eos % (Auto) 0.1 Baso % (Auto) 0.4 Lymph # (Auto) 2.0 Bartholomew # (Auto) 2.2 H Eos # (Auto) 0.0 Baso # (Auto) 0.1 Abs Immat Gran (auto) 0.12 H Absolute Neuts (auto) 16.1 H Absolute Nucleated RBC 0.000 Nucleated RBC % (auto) 0.0 Smear Tech's Comments VERIFIED PT 14.5 H INR 1.3 H APTT 32.1 Sodium 136 Potassium 3.8 Chloride 93 L Carbon Dioxide 29 Anion Gap 18 BUN 18 H Creatinine 1.00 Estim Creat Clear Calc 80.1 Estimated GFR > 60 POC Glucose Random Glucose 219 H Calcium 9.2 Total Bilirubin 0.6 AST 23 ALT 27 Alkaline Phosphatase 101 Total Protein 6.5 Albumin 3.9 Lipase 36 Gastric Occult Blood Stool Occult Blood COVID-19 (ROS[facility]) COVID-19 Clin Com Blood Type Antibody Screen 01/30/23 01/30/23 01/30/23 03:52 03:56 04:14 WBC RBC Hgb Hct MCV MCH MCHC RDW Plt Count MPV Immature Gran % (Auto) Neut % (Auto) Lymph % (Auto) Bartholomew % (Auto) Eos % (Auto) Baso % (Auto) Lymph # (Auto) Bartholomew # (Auto) Eos # (Auto) Baso # (Auto) Abs Immat Gran (auto) Absolute Neuts (auto) Absolute Nucleated RBC Nucleated RBC % (auto) Smear Tech's Comments PT INR APTT Sodium Potassium Chloride Carbon Dioxide Anion Gap BUN Creatinine Estim Creat Clear Calc Estimated GFR POC Glucose Random Glucose Calcium Total Bilirubin AST ALT Alkaline Phosphatase Total Protein Albumin Lipase Gastric Occult Blood POSITIVE Stool Occult Blood COVID-19 (ROSANNA) Negative COVID-19 Clin Com See Note Blood Type A Positive Antibody Screen NEGATIVE 01/30/23 01/30/23 01/30/23 04:57 04:57 05:55 WBC 18.8 H RBC 5.06 Hgb 13.9 L Hct 41.2 L MCV 81.4 MCH 27.5 MCHC 33.7 RDW 12.8 Plt Count 224 MPV 11.7 Immature Gran % (Auto) 0.8 H Neut % (Auto) 82.4 H Lymph % (Auto) 7.0 L Bartholomew % (Auto) 9.4 Eos % (Auto) 0.2 Baso % (Auto) 0.2 Lymph # (Auto) 1.3 Bartholomew # (Auto) 1.8 H Eos # (Auto) 0.0 Baso # (Auto) 0.0 Abs Immat Gran (auto) 0.15 H Absolute Neuts (auto) 15.5 H Absolute Nucleated RBC 0.000 Nucleated RBC % (auto) 0.0 Smear Tech's Comments PT INR APTT Sodium 137 Potassium 3.7 Chloride 95 L Carbon Dioxide 28 Anion Gap 18 BUN 17 H Creatinine 0.95 Estim Creat Clear Calc 84.3 Estimated GFR > 60 POC Glucose 195 H Random Glucose 206 H Calcium 8.7 Total Bilirubin AST ALT Alkaline Phosphatase Total Protein Albumin Lipase Gastric Occult Blood Stool Occult Blood COVID-19 ([facility]) [employer] Blood Type Antibody Screen 01/30/23 01/30/23 06:21 11:35 WBC RBC Hgb Hct MCV MCH MCHC RDW Plt Count MPV Immature Gran % (Auto) Neut % (Auto) Lymph % (Auto) Bartholomew % (Auto) Eos % (Auto) Baso % (Auto) Lymph # (Auto) Bartholomew # (Auto) Eos # (Auto) Baso # (Auto) Abs Immat Gran (auto) Absolute Neuts (auto) Absolute Nucleated RBC Nucleated RBC % (auto) Smear Tech's Comments PT INR APTT Sodium Potassium Chloride Carbon Dioxide Anion Gap BUN Creatinine Estim Creat Clear Calc Estimated GFR POC Glucose 165 H Random Glucose Calcium Total Bilirubin AST ALT Alkaline Phosphatase Total Protein Albumin Lipase Gastric Occult Blood Stool Occult Blood POSITIVE COVID-19 (ROSANNA) COVID-19 [employer] Blood Type Antibody Screen Airway Mallampati Class: II TM Dist: >3cm Neck ROM: Full Loose/Missing/Broken Teeth: No Heart: rr Lungs: cta Assessment and Plan Assessment Anesthesia Assessment: Anesthesia Plan Discussed and Chart Reviewed Final Anesthetic Review Family History of Problems with Anesthesia: No History of Problems with Anesthesia: No NPO: Yes ASA Class: II Final Preanesthetic Review: No Changes in Pt Med Stat, Meds/Allgs Chart Reviewed, Consent Obtained/Reviewed and Anes Risks/Benef Reviewed Patient Risk: Intermediate Procedure Risk: Low Anesthetic Plan Anesthetic Plan: MAC: Disposition: Standard PACU
[2023-01-30 14:44] LABS: Glucose, Whole Blood 110 mg/dL (60-115)
--- NOTE | 2023-01-30 15:01 | PM.EVENT ---
Event Note Date of Service: 01/30/23 Event Note: Chart reviewed patient examined. EGD this afternoon. Further plans based on forthcoming data Time Spent With Patient Time: Total time managing care of this patient today ____ minutes.
--- NOTE | 2023-01-30 15:23 | PM.OP ---
Brief Operative Note Date of Service: 01/30/23 Pre-op diagnosis: ugi bleed Post-op diagnosis: same Procedure: egd Surgeon: Amish Rodríguez Anesthesia: MAC Was an Sandblast Carver used for this Procedure?: No Estimated blood loss (mL): 5 Pathology: other Condition: stable Disposition: PACU
--- NOTE | 2023-01-30 15:24 | PM.EVENT ---
Event Note Date of Service: 01/30/23 Event Note: EGD multiple large mostly superficial gastric ulcers involving antrum, greater curvature and post wall, some deeper below egj but no single bleeding point amenable to treatment. Biopsies obtained Rec: pantoprazole continuous infusion x24 hours, follow hct clear liquids as tolerated. Time Spent With Patient Time: Total time managing care of this patient today ____ minutes.
--- NOTE | 2023-01-30 16:18 | OP_ITS ---
DATE OF SERVICE: 01/30/2023 SURGEON: Amish Rodríguez MD INDICATIONS: Upper GI bleeding. PREOPERATIVE DIAGNOSIS: POSTOPERATIVE DIAGNOSIS: PROCEDURE PERFORMED: Upper endoscopy with biopsy. ESTIMATED BLOOD LOSS: COMPLICATIONS: ANESTHESIA: Monitored anesthesia care. ASSISTANTS: SPECIMENS: DESCRIPTION OF PROCEDURE: A history and physical performed. The risks and benefits of the procedure were explained to the patient. Informed consent was obtained. The patient was placed in a left lateral decubitus position. The Olympus videogastroscope was introduced into the esophagus, stomach, and duodenum. Examination was performed. The scope was removed. He tolerated the procedure well and was returned recovery area in stable condition. FINDINGS: Esophagus: The esophagus was normal. Stomach: The stomach was abnormal. There was a large amount of old blood and some undigested food in the stomach. This was washed and suctioned. Simethicone was applied to reduce foaming. There were multiple large ulcers which appeared mostly superficial involving most of the body and posterior wall, as well as the antrum and also the lesser curvature. These ulcers extended up into the fundus, and were somewhat deeper along the posterior wall higher up in the body. No single active bleeding site was identified that could be amenable to endoscopic treatment. There was some adherent clot which was washed without complication or bleeding. Biopsies were obtained from the margins of the ulcers throughout the stomach for histopathological examination. Duodenum: The bulb and 2nd portion were normal. IMPRESSION: Multiple gastric ulcers as above. Infiltrative disease and malignancy should be considered. RECOMMENDATIONS: 1. Monitor hematocrit. 2. Intravenous Protonix, continuous infusion. 3. Discontinue aspirin, any other NSAIDs. 4. Follow up the biopsy results. MD AMAIRANI Maier/NIKKIL / [id number] MTDD
[2023-01-30 16:35] LABS: Glucose, Whole Blood 105 mg/dL (60-115)
[2023-01-30] MEDS: 0.9 % Sodium Chloride Flush 3 ML SYRINGE IVFLUSH (17:02)
[2023-01-30] MEDS: Pantoprazole Sodium 80 MG in 0.9 % Sodium Chloride 80 ML 10 MG IV (17:28)
[2023-01-30 20:51] LABS: Glucose, Whole Blood 130 mg/dL (60-115)
[2023-01-30 23:17] LABS: Glucose, Whole Blood 128 mg/dL (60-115)
--- NOTE | 2023-01-31 00:34 | CONS_ITS ---
DATE OF SERVICE: 01/30/2023 REFERRING PHYSICIAN: Peri Snell MD REASON FOR CONSULTATION: Upper gastrointestinal bleeding. HISTORY OF PRESENT ILLNESS: Patient is a pleasant 67-year-old man, who was admitted to the hospital after presenting to the emergency room complaining of blood with his vomitus. He reports about an 8-day history of intermittent vomiting of material that was initially somewhat brownish in nature and coffee-ground and subsequently became slightly blood tinged. His last bowel movement was 1 day ago, which was dark and brown and formed by his report. He has had some epigastric pain and was seen in the emergency department on January 21 and at that time evaluated with laboratory studies and CT scanning of the abdomen and pelvis with no significant findings. He was treated symptomatically and discharged. He returned early this morning with symptoms as above. He denies any prior history of peptic ulcer disease. He does not drink alcohol to excess and does not use large amounts of nonsteroidal anti-inflammatory drugs, but is on a baby aspirin a day because of history of coronary artery disease. In the emergency department, laboratory studies documented a hematocrit of 44, which was down slightly from 48 on January 21. This dropped slightly to 41, approximately 2 hours later. The patient reports his last episode of emesis was early this morning shortly after arrival and filled half of bag with brownish material. Stool occult blood testing in the emergency department was positive and gastric occult blood testing was also positive. The patient was admitted to the hospital and has been n.p.o. since admission. He has never had endoscopy. He does have a history of colon polyps and last underwent colonoscopy in July with removal of 2 tubular adenomas. PAST MEDICAL HISTORY: 1. Diabetes mellitus. 2. Coronary artery disease with history of coronary artery bypass graft. 3. Hypertension. 4. Hyperlipidemia. 5. Anxiety/depression. 6. Elevated BMI. 7. Vitamin D deficiency. PAST SURGICAL HISTORY: 1. Coronary artery bypass graft as above. 2. Cholecystectomy. 3. Rotator cuff surgery. 4. Tonsillectomy. 5. Umbilical hernia repair. CURRENT MEDICATIONS: His current medication list is reviewed in the chart. ALLERGIES: HE IS ALLERGIC TO OLMESARTAN. FAMILY HISTORY: This was reviewed with the patient and is negative for upper gastrointestinal tract malignancy. SOCIAL HISTORY: He denies tobacco, alcohol, and substance abuse. REVIEW OF SYSTEMS: SKIN: No pruritus. HEENT: Negative. CARDIOPULMONARY: No shortness of breath or chest pain. GASTROINTESTINAL: As above. GENITOURINARY: Negative. NEUROPSYCHIATRIC: Negative. PHYSICAL EXAMINATION: GENERAL: A pleasant male, lying comfortably in bed. VITAL SIGNS: In the emergency department are reviewed and are stable. SKIN: Anicteric. HEENT: No scleral icterus. NECK: Without lymphadenopathy or thyromegaly. LUNGS: Clear. HEART: Regular rate and rhythm. S1, S2. No murmur. ABDOMEN: Soft without focal masses or tenderness. Bowel sounds are present. He has well-healed incisions from prior surgeries. EXTREMITIES: Without edema. LABORATORY DATA: Blood work and imaging studies are reviewed. CT scan was repeated with no acute findings. IMPRESSION: Upper gastrointestinal bleeding. We discussed the differential diagnosis for upper gastrointestinal bleeding including erosive esophagitis, peptic ulcer disease, erosive gastritis, as well as arteriovenous malformations and malignancy. I have recommended he undergo upper endoscopy. I have discussed risks and benefits with him. He understands these and agrees to proceed. In the interim, I agree with treating him with a proton pump inhibitor as you are doing and monitoring his hematocrit. Thanks for asking me to see him. I will follow him in the hospital with you. MD AMAIRANI Maier/SHIELA / [id number]
[2023-01-31] MEDS: Pantoprazole Sodium 80 MG in 0.9 % Sodium Chloride 80 ML 10 MG IV ×2 (03:37→11:25)
[2023-01-31] MEDS: 0.9 % Sodium Chloride 1,000 ML 100 ML IVCONT ×2 (03:37→11:24)
[2023-01-31 03:41] VITALS: BP 159/71; PULSE 73; RESP 20; TEMP 36.6; O2SAT 92
[2023-01-31 06:18] LABS: Hematocrit 34.2 % (42.0-52.0); Hemoglobin 11.4 g/dl (14.0-18.0); Mean Corpuscular HGB Conc 33.3 g/dl (31.0-36.0); Mean Corpuscular Hemoglobin 27.5 pg (27.0-33.0); Mean Corpuscular Volume 82.6 fL (80.0-98.0); Mean Platelet Volume 10.5 fL (9.4-12.4); Platelet Count 215 X10*3/uL (160-400); Red Blood Count 4.14 X10*6/uL (4.60-5.80); Red Cell Distribution Width 12.8 % (11.0-16.0); White Blood Count 13.6 X10*3/uL (4.8-10.8)
[2023-01-31 07:17] LABS: Glucose, Whole Blood 113 mg/dL (60-115)
[2023-01-31 07:24] VITALS: BP 138/63; PULSE 72; RESP 17; TEMP 36.6; O2SAT 97
[2023-01-31] MEDS: Valsartan 80 MG TABLET PO (09:18)
[2023-01-31] MEDS: hydroCHLOROthiazide 25 MG TABLET PO (09:18)
[2023-01-31] MEDS: Atorvastatin Calcium 80 MG TABLET PO (09:18)
[2023-01-31] MEDS: Metoprolol Tartrate 100 MG TABLET PO ×2 (09:19→20:40)
[2023-01-31] MEDS: 0.9 % Sodium Chloride Flush 3 ML SYRINGE IVFLUSH ×3 (09:19→20:41)
[2023-01-31] MEDS: Ezetimibe 10 MG TABLET PO (09:19)
[2023-01-31] MEDS: amLODIPine Besylate 5 MG TABLET PO (09:19)
--- NOTE | 2023-01-31 11:01 | HO.POSTANES ---
Post Anesthesia Evaluation Post Anesthesia Evaluation Vital Signs: Vital Signs Temp Pulse Resp BP Pulse Ox O2 Del Method O2 Flow Rate 01/31/23 07:24 97.8 F 72 17 138/63 97 Room Air 97 01/31/23 03:41 97.8 F 73 20 159/71 H 92 Room Air 01/30/23 23:07 98.7 F 80 18 134/60 92 Room Air Anesthesia: Monitored Mental Status: Awake Pain Control: Satisfactory Nausea/Vomiting: None Hydration: Adequate Anesthesia-Related Issues: No Anes. Related Issues
[2023-01-31 11:10] LABS: Glucose, Whole Blood 150 mg/dL (60-115)
[2023-01-31 11:29] VITALS: BP 146/67; PULSE 73; RESP 20; TEMP 36.9; O2SAT 91
--- NOTE | 2023-01-31 13:22 | HO.PM.IMPN ---
Subjective Subjective Date of Service: 01/31/23 Interval History: Results of EGD noted. Doing well on IV ppi. No acute issues Review of Systems Denies chest pain Denies shortness of breath Denies nausea vomiting diarrhea Denies fever chills Physical Exam Vital Signs: Vital Signs: Last Vital Signs Temp 98.5 F 01/31/23 11:29 Pulse 73 01/31/23 11:29 Resp 20 01/31/23 11:29 BP 146/67 H 01/31/23 11:29 Pulse Ox 91 L 01/31/23 11:29 O2 Del Method Room Air 01/31/23 11:29 O2 Flow Rate 97 01/31/23 07:24 BMI result Body Mass Index 30.7 Const: Other: Awake alert no acute distress Resp: Other: Clear to auscultation bilaterally no rales rhonchi wheezes Cardio: Other: No S4; positive S1-S2; no S3 murmurs rubs or gallops GI: Other: Soft nontender nondistended normoactive bowel sounds Extrem: Other: No edema bilaterally Objective Data Active Medications Acetaminophen (Acetaminophen 325 Mg Tablet) 650 mg PO Q6H PRN PRN Reason: Pain, Mild (Pain Scale 1-3) Amlodipine Besylate (Amlodipine Besylate 5 Mg Tablet) 5 mg PO DAILY [facility]; Protocol Last Admin: 01/31/23 09:19 Dose: 5 mg Documented By: MEHNAZ Atorvastatin Calcium (Atorvastatin Calcium 80 Mg Tablet) 80 mg PO DAILY [facility] Last Admin: 01/31/23 09:18 Dose: 80 mg Documented By: MEHNAZ Cholestyramine Resin (Cholestyramine (With Sugar) 4 Gm Powd.Pack) 4 gm PO BID PRN PRN Reason: Diarrhea Dicyclomine HCl (Dicyclomine Hcl 10 Mg Capsule) 20 mg PO QID PRN PRN Reason: abdominal discomfort Ezetimibe (Ezetimibe 10 Mg Tablet) 10 mg PO DAILY [facility] Last Admin: 01/31/23 09:19 Dose: 10 mg Documented By: MEHNAZ Glucose (Glucose Gel 15 Gm Gel..Gram.) 15 gm PO Q15M PRN; Protocol PRN Reason: per Hypoglycemia Standing Ord. Hydrochlorothiazide (Hydrochlorothiazide 25 Mg Tablet) 25 mg PO DAILY [facility]; Protocol Last Admin: 01/31/23 09:18 Dose: 25 mg Documented By: MEHNAZ Sodium Chloride (Ns) 1,000 mls @ 100 mls/hr IVCONT .Q10H [facility] Last Admin: 01/31/23 11:24 Dose: 100 mls/hr Documented By: MEHNAZ Dextrose (D10) 250 mls @ 750 mls/hr IV Q15M PRN; Protocol PRN Reason: per Hypoglycemia Standing Ord. Pantoprazole Sodium 80 mg/ (Sodium Chloride) 100 mls @ 10 mls/hr IV .Q10H [facility] Last Admin: 01/31/23 11:25 Dose: 8 mg/hr, 10 mls/hr Documented By: MEHNAZ Insulin Human Lispro (Insulin Lispro 100 Unit/Ml 3 Ml Vial) 0.1 - 10 unit SUBCUT QIDACHS [facility]; Protocol Last Admin: 01/31/23 11:55 Dose: Not Given Documented By: MEHNAZ Non-Admin Reason: No Insulin Coverage Melatonin (Melatonin 3 Mg Tablet) 6 mg PO BEDTIME PRN PRN Reason: Insomnia Metoprolol Tartrate (Metoprolol Tartrate 100 Mg Tablet) 100 mg PO BID [facility]; Protocol Last Admin: 01/31/23 09:19 Dose: 100 mg Documented By: MEHNAZ Ondansetron HCl (Ondansetron Hcl 4 Mg/2 Ml Vial) 4 mg IVPUSH Q8H PRN PRN Reason: Nausea and Vomiting Pharmacy Consult (Consult Rx Perform Med Rec) 1 each MISCELLANE ONCE PRN PRN Reason: Consult order Sodium Chloride (0.9 % Sodium Chloride Flush 3 Ml Syringe) 3 ml IVFLUSH QSHIFT [facility] Last Admin: 01/31/23 09:19 Dose: 3 ml Documented By: MEHNAZ Valsartan (Valsartan 80 Mg Tablet) 80 mg PO DAILY [facility] Last Admin: 01/31/23 09:18 Dose: 80 mg Documented By: MEHNAZ Labs 01/31/23 06:01 01/30/23 04:57 Labs: Laboratory Results - last 24 hr 01/30/23 01/30/23 01/30/23 14:39 16:28 20:46 MCV MCH MCHC RDW Plt Count MPV Absolute Nucleated RBC Nucleated RBC % (auto) POC Glucose 110 105 130 H 01/30/23 01/31/23 01/31/23 23:13 06:01 07:09 MCV 82.6 MCH 27.5 MCHC 33.3 RDW 12.8 Plt Count 215 MPV 10.5 Absolute Nucleated RBC 0.000 Nucleated RBC % (auto) 0.0 POC Glucose 128 H 113 01/31/23 11:07 MCV MCH MCHC RDW Plt Count MPV Absolute Nucleated RBC Nucleated RBC % (auto) POC Glucose 150 H Assessment and Plan (1) Hematemesis: Status: Acute (2) Type 2 diabetes mellitus with hyperglycemia: Status: Acute (3) Hypertension: Status: Acute Plan This is a 67-year-old male with pertinent history of insulin-dependent diabetes mellitus, essential hypertension, CAD status post CABG, mixed hyperlipidemia who presents to the emergency department for evaluation of blood in vomitus. EGD consistent with multiple gastric ulcers. Biopsies take 1. Hematemesis: -secondary to multiple gastric ulcers -continue IV PPI until seen by GI -advanced diet as per GI recommendation 2.Insulin-dependent diabetes mellitus with hyperglycemia -acceptable control on current therapies -adjust as indicated 3.Essential hypertension -acceptable control on current therapies -follow renals/divalents Med rec pending DVT prophylaxis: Mechanical Full code Require ongoing hospitalization for IV PPI to treat gastric Time Spent With Patient Time: Total time managing care of this patient today ____ minutes. Quality Stroke Does the patient have a stroke diagnosis?: No VTE Prior VTE?: No VTE Risk Level:: Medical - moderate - high VTE Device Contraindication: N/A - Device Ordered VTE Drug Contraindication: Treatment Not Indicated
[2023-01-31 15:56] VITALS: BP 152/61; PULSE 68; RESP 20; TEMP 36.6; O2SAT 93
[2023-01-31 16:15] LABS: Glucose, Whole Blood 202 mg/dL (60-115)
[2023-01-31] MEDS: Insulin Lispro 100 UNIT/ML 3 ML VIAL SUBCUT (16:19)
--- NOTE | 2023-01-31 17:21 | PM.GIPN ---
Subjective Subjective Date of Service: 01/31/23 Interval History: no pain dark bm this am per pt nursing reports no melena Critical Care Time (minutes): 0 Physical Exam Vital Signs: Vital Signs: Last Vital Signs Temp 98 F 01/31/23 15:56 Pulse 68 01/31/23 15:56 Resp 20 01/31/23 15:56 BP 152/61 H 01/31/23 15:56 Pulse Ox 93 01/31/23 15:56 O2 Del Method Room Air 01/31/23 15:56 O2 Flow Rate 97 01/31/23 07:24 BMI result Body Mass Index 30.7 GI: Other: abdomen is soft and nontender Objective Data Labs 01/31/23 06:01 01/30/23 04:57 Labs: Laboratory Results - last 24 hr 01/30/23 01/30/23 01/31/23 20:46 23:13 06:01 WBC 13.6 H RBC 4.14 L Hgb 11.4 L Hct 34.2 L MCV 82.6 MCH 27.5 MCHC 33.3 RDW 12.8 Plt Count 215 MPV 10.5 Absolute Nucleated RBC 0.000 Nucleated RBC % (auto) 0.0 POC Glucose 130 H 128 H 01/31/23 01/31/23 01/31/23 07:09 11:07 16:06 WBC RBC Hgb Hct MCV MCH MCHC RDW Plt Count MPV Absolute Nucleated RBC Nucleated RBC % (auto) POC Glucose 113 150 H 202 H Procedures Date of Service Date of Service: 01/31/23 Progress Note: A&P Assessment and plan (1) Acute upper gastrointestinal bleeding: Status: Acute Assessment and Plan: no active bleeding switch pantoprazole to iv bid advance diet check path in am if hct stable, can d/c on oral ppi bid Time Spent With Patient Time: Total time managing care of this patient today ____ minutes. Quality Stroke Does the patient have a stroke diagnosis?: No VTE Prior VTE?: No VTE Risk Level:: Medical - moderate - high VTE Device Contraindication: N/A - Device Ordered VTE Drug Contraindication: Treatment Not Indicated
[2023-01-31 20:00] VITALS: BP 158/55; PULSE 65; RESP 18; TEMP 36.3; O2SAT 94
[2023-01-31 20:23] LABS: Glucose, Whole Blood 98 mg/dL (60-115)
[2023-01-31 23:27] VITALS: BP 143/66; PULSE 66; RESP 18; TEMP 37.1; O2SAT 97
[2023-02-01 04:00] VITALS: BP 134/64; PULSE 65; RESP 20; TEMP 36.5; O2SAT 94
[2023-02-01] MEDS: Pantoprazole Sodium 40 MG/10 ML VIAL IVPUSH (05:58)
[2023-02-01 07:21] LABS: Glucose, Whole Blood 116 mg/dL (60-115)
[2023-02-01 07:46] VITALS: BP 112/57; PULSE 77; RESP 20; TEMP 36.2; O2SAT 96
--- NOTE | 2023-02-01 08:07 | P.CDIM_ITS ---
PROVIDER RESPONSE TEXT: To clarify, the appropriate diagnosis supported by the clinical indicators: Acute Gastric ulcer QUERY TEXT: PHYSICIAN'S DOCUMENTATION REQUEST Date of Query: 02/01/2023 08:00 AM EDT Patient Name: Divya Nails Admit Date: 01/30/2023 Dear Hector Russo, A review of the medical record indicates additional documentation may be needed. Please review below and update the documentation accordingly. Clinical Indicators: PN 01/31 - Hematemesis: secondary to multiple gastric ulcers Continue IV PPI Acute Gastric ulcer Acute on chronic Gastric ulcer Other Other (explain) Clinically unable to determine (explain) Thank you, Carol Oglesby, CCS, CDIS Use of terms such as suspected, likely, concern for, or probable (associated with a specific diagnosi s that is being evaluated, monitored, or treated as if it exists) are acceptable and can be coded in the inpatient se tting, when documented at the time of discharge. Please use your independent medical judgment in providing your response. THIS QUERY IS PART OF THE PERMANENT MEDICAL RECORD
[2023-02-01 08:23] LABS: Basophils Absolute Auto 0.1 X10*3/uL (0.0-0.2); Basophils Percent Auto 0.5 % (0-2); Eosinophils Absolute Auto 0.3 X10*3/uL (0.0-0.4); Hematocrit 38.5 % (42.0-52.0); Hemoglobin 12.5 g/dl (14.0-18.0); Imm Gran Abs Auto 0.07 X10*3/uL (0.00-0.03); Imm Gran Pct Auto 0.4 % (0.0-0.4); Lymphocytes Absolute Auto 2.4 X10*3/uL (1.2-4.9); Lymphocytes Percent Auto 14.2 % (20-40); MANUAL DIFF FLAG SCAN; Mean Corpuscular HGB Conc 32.5 g/dl (31.0-36.0); Mean Corpuscular Hemoglobin 27.2 pg (27.0-33.0); Mean Corpuscular Volume 83.9 fL (80.0-98.0); Mean Platelet Volume 10.5 fL (9.4-12.4); Monocytes Absolute Auto 1.7 X10*3/uL (0.1-1.2); Monocytes Percent Auto 10.5 % (2-11); Neutrophils Absolute Auto 11.9 x10*3/uL (2.0-8.3); Neutrophils Percent Auto 72.4 % (45-73); Platelet Count 270 X10*3/uL (160-400); Red Blood Count 4.59 X10*6/uL (4.60-5.80); Red Cell Distribution Width 12.9 % (11.0-16.0); SCAN SMEAR FLAG 1; White Blood Count 16.5 X10*3/uL (4.8-10.8)
[2023-02-01 08:56] LABS: SLIDE REVIEW VERIFIED
[2023-02-01] MEDS: Ezetimibe 10 MG TABLET PO (08:59)
[2023-02-01] MEDS: hydroCHLOROthiazide 25 MG TABLET PO (08:59)
[2023-02-01] MEDS: amLODIPine Besylate 5 MG TABLET PO (09:00)
[2023-02-01] MEDS: Valsartan 80 MG TABLET PO (09:00)
[2023-02-01] MEDS: 0.9 % Sodium Chloride Flush 3 ML SYRINGE IVFLUSH (09:00)
[2023-02-01] MEDS: Metoprolol Tartrate 100 MG TABLET PO (09:00)
[2023-02-01] MEDS: Atorvastatin Calcium 80 MG TABLET PO (09:00)
[2023-02-01 11:05] LABS: Glucose, Whole Blood 108 mg/dL (60-115)
[2023-02-01 11:35] VITALS: BP 149/68; PULSE 66; RESP 20; TEMP 36.3; O2SAT 96
--- NOTE | 2023-02-01 12:40 | PM.DS ---
DS: Providers Provider Date of Service: 02/01/23 Date of admission: 01/30/23 04:23 Date of discharge: 02/01/23 Primary care physician: Luke Albright MD Consults: 01/30/23 10:39 Consult to Gastroenterology Stat Consulting Provider: Isaiah Benito Reason for consultation: GIB Has provider been notified: Yes DS: Diagnosis Discharge Diagnosis (1) Acute upper gastrointestinal bleeding: Status: Acute DS: Summary Hospital Course Hospital Course: 67-year-old male with pertinent history of insulin-dependent diabetes mellitus, essential hypertension, CAD status post CABG, mixed hyperlipidemia who presents to the emergency department for evaluation of blood in vomitus.? Patient states he has been having persistent vomiting that started 1 day prior to presentation.? It is associated with abdominal discomfort.? On the day of presentation, patient started having blood in vomitus.? Also noticed 1 episode of dark stool.? Denies any similar complaints in the past.? Denies history of NSAID use.? Not on anticoagulants but does use aspirin.? Had a previous normal colonoscopy as per the .? Denies fever, chills, chest discomfort, palpitations, shortness of breath, changes in urinary habits. Of the emergency department, patient was noted to have blood in vomitus. Hospital Course Admitted to [facility] failed to demonstrate any dysrhythmias. Seen in consultation by GI; underwent EGD 01/30/2023 which demonstrated multiple large mostly superficial gastric ulcers involving antrum greater curvature and posterior wall son deeper below EEG GA but no single bleeding point. Patient's hemoglobin remained stable and he received 24 hours are IV pantoprazole. At this point in time he is tolerating a diet with no active bleeding and wishes to be discharged. As per GI he will be discharged on b.i.d. proton pump inhibitor and follow-up with them in the office Time Spent with Patient Time attestation: Total time managing care of this patient today ____ minutes. Discharge coordination time: Greater than 30 minutes Quality: Safe Use of Opioids Does Pt have an Active Cancer Diagnosis on the Problem List?: No Quality: Stroke Does the patient have a stroke diagnosis?: No Physical Exam Vital Signs: Vital Signs: Last Vital Signs Temp 97.4 F 02/01/23 11:35 Pulse 66 02/01/23 11:35 Resp 20 02/01/23 11:35 BP 149/68 H 02/01/23 11:35 Pulse Ox 96 02/01/23 11:35 O2 Del Method Room Air 02/01/23 11:35 O2 Flow Rate 97 01/31/23 07:24 BMI result Body Mass Index 30.7 Const: Other: Awake alert no acute distress Resp: Other: Clear to auscultation bilaterally no rales rhonchi wheezes Cardio: Other: No S4; positive S1-S2; no S3 murmurs rubs or gallops GI: Other: Soft nontender nondistended normoactive bowel sounds Extrem: Other: No edema bilaterally DS: Data Data Completed and Pending Pending studies at discharge: Pending at discharge 01/30/23 15:17 Surgical [PTH] Routine Labs on day of discharge: Laboratory Results - last 24 hr 01/31/23 01/31/23 02/01/23 16:06 20:19 07:15 WBC RBC Hgb Hct MCV MCH MCHC RDW Plt Count MPV Immature Gran % (Auto) Neut % (Auto) Lymph % (Auto) [place] % (Auto) Eos % (Auto) Baso % (Auto) Lymph # (Auto) [place] # (Auto) Eos # (Auto) Baso # (Auto) Abs Immat Gran (auto) Absolute Neuts (auto) Absolute Nucleated RBC Nucleated RBC % (auto) Smear Tech's Comments POC Glucose 202 H 98 116 H 02/01/23 02/01/23 08:00 10:59 WBC 16.5 H RBC 4.59 L Hgb 12.5 L Hct 38.5 L MCV 83.9 MCH 27.2 MCHC 32.5 RDW 12.9 Plt Count 270 D MPV 10.5 Immature Gran % (Auto) 0.4 Neut % (Auto) 72.4 Lymph % (Auto) 14.2 L [place] % (Auto) 10.5 Eos % (Auto) 2.0 Baso % (Auto) 0.5 Lymph # (Auto) 2.4 [place] # (Auto) 1.7 H Eos # (Auto) 0.3 Baso # (Auto) 0.1 Abs Immat Gran (auto) 0.07 H Absolute Neuts (auto) 11.9 H Absolute Nucleated RBC 0.000 Nucleated RBC % (auto) 0.0 Smear Tech's Comments VERIFIED POC Glucose 108 Discharge Plan Discharge Anticipated Discharge Date/Time: 02/01/23 12:34 Patient Disposition: Home, Self-Care Discharge Diagnosis: Acute upper GI bleed Referrals: Po,Luke Hart MD [Primary Care Provider] - 1 Week Discharge Medications: New omeprazole 40 mg capsule,delayed release(DR/EC) 40 mg PO BID Qty: 60 2RF Continued (DME) pen needle, diabetic [1st Tier Unifine Pentips] 31 gauge x 3/16 needle See Rx Instructions .ROUTE .MEDSUPPLY Qty: 4 3RF Rx Instructions: As directed inject insulin 4 times a day rosuvastatin 40 mg tablet 40 mg PO DAILY 90 Days Qty: 90 0RF glipizide 5 mg tablet extended release 24hr 5 mg PO DAILY 30 Days Qty: 90 3RF hydrochlorothiazide 25 mg tablet 25 mg PO DAILY 90 Days Qty: 90 2RF metoprolol tartrate 100 mg tablet 100 mg PO BID Qty: 180 2RF olmesartan 20 mg tablet 20 mg PO DAILY 90 Days Qty: 90 2RF amlodipine 5 mg tablet 5 mg PO DAILY Qty: 90 2RF (DME) blood-glucose meter [OneTouch Ultra2 Meter[place] [facility] [place] .Route Qty: 1 0RF Rx Instructions: As directed (DME) OneTouch Ultra Test Strip See Rx Instructions .Route Qty: 100 3RF Rx Instructions: As directed (DME) lancets [OneTouch UltraSoft Lancets] [facility] [place] Rx Instructions .Route Qty: 200 1RF Rx Instructions: Testing 4 times a day dicyclomine 20 mg tablet 20 mg PO QID PRN (Reason: abdominal discomfort) Qty: 14 0RF ondansetron 4 mg tablet,disintegrating 4 mg PO Q8H PRN (Reason: nausea and vomiting) Qty: 10 0RF Prevalite 4 gram powder 4 g PO BID PRN (Reason: Diarrhea) Rx Instructions: 4 grams 2 times a day; DISSOLVED IN WATER dulaglutide 1.5 mg/0.5 mL pen injector 1.5 mg subcut HOUSER aspirin 81 mg tablet,delayed release (DR/EC) 81 mg PO DAILY (DME) lancets [OneTouch Delica Plus Lancet] 30 gauge misc See Rx Instructions .Route Qty: 300 3RF Rx Instructions: As directed check the BS TID insulin glargine [Basaglar KwikPen U-100 Insulin] 100 unit/mL (3 mL) insulin pen 20 unit subcut DAILY ezetimibe [Zetia] 10 mg tablet 10 mg PO DAILY Qty: 90 2RF Discharge Orders: Discharge Order (Routine); Ordered 02/01/23 Ordered By: Hector Russo Diet: Advance to usual diet Activity on Discharge: As tolerated Stand Alone Forms: Patient Portal Discharge page Care Plan Goals: Start omeprazole 40 mg twice daily Health Concerns: Follow-up with Dr. Benito; his office will call to schedule an appointment Plan of Treatment: Resume all other pre-hospital medications Assessment: See discharge summary
--- NOTE | 2023-02-01 12:54 | MHC.CM.PN ---
PT WILL DC HOME TODAY WITH NO SERVICES TO TRANSPORT
--- NOTE | 2023-02-01 14:05 | P.PNGI_ITS ---
Subjective Subjective Date of Service: 02/01/23 Interval History: No vomiting no bowel movement tolerating diet Critical Care Time (minutes): 0 Physical Exam Vital Signs: Vital Signs: Last Vital Signs Temp 97.4 F 02/01/23 11:35 Pulse 66 02/01/23 11:35 Resp 20 02/01/23 11:35 BP 149/68 H 02/01/23 11:35 Pulse Ox 96 02/01/23 11:35 O2 Del Method Room Air 02/01/23 11:35 O2 Flow Rate 97 01/31/23 07:24 BMI result Body Mass Index 30.7 GI: Other: abdomen is soft and nontender Objective Data Labs 02/01/23 08:00 01/30/23 04:57 Labs: Laboratory Results - last 24 hr 01/31/23 01/31/23 02/01/23 16:06 20:19 07:15 WBC RBC Hgb Hct MCV MCH MCHC RDW Plt Count MPV Immature Gran % (Auto) Neut % (Auto) Lymph % (Auto) [place] % (Auto) Eos % (Auto) Baso % (Auto) Lymph # (Auto) [place] # (Auto) Eos # (Auto) Baso # (Auto) Abs Immat Gran (auto) Absolute Neuts (auto) Absolute Nucleated RBC Nucleated RBC % (auto) Smear Tech's Comments POC Glucose 202 H 98 116 H 02/01/23 02/01/23 08:00 10:59 WBC 16.5 H RBC 4.59 L Hgb 12.5 L Hct 38.5 L MCV 83.9 MCH 27.2 MCHC 32.5 RDW 12.9 Plt Count 270 D MPV 10.5 Immature Gran % (Auto) 0.4 Neut % (Auto) 72.4 Lymph % (Auto) 14.2 L [place] % (Auto) 10.5 Eos % (Auto) 2.0 Baso % (Auto) 0.5 Lymph # (Auto) 2.4 [place] # (Auto) 1.7 H Eos # (Auto) 0.3 Baso # (Auto) 0.1 Abs Immat Gran (auto) 0.07 H Absolute Neuts (auto) 11.9 H Absolute Nucleated RBC 0.000 Nucleated RBC % (auto) 0.0 Smear Tech's Comments VERIFIED POC Glucose 108 Procedures Date of Service Date of Service: 02/01/23 Progress Note: A&P Assessment and plan (1) Acute upper gastrointestinal bleeding: Status: Acute Assessment and Plan: Preliminary review of path is benign discussed with Dr. De La Cruz ok to d/c on bid ppi f/u egd in about 8 weeks to reassess ulcers. Time Spent With Patient Time: Total time managing care of this patient today ____ minutes. Quality Stroke Does the patient have a stroke diagnosis?: No VTE Prior VTE?: No VTE Risk Level:: Medical - moderate - high VTE Device Contraindication: N/A - Device Ordered VTE Drug Contraindication: Treatment Not Indicated
[2023-02-06 05:45] LABS: Gastrin 54 pg/mL (<=100)
== END 2023-02-01 15:27 | disposition home or self-care (01) | DRG 379 ==
LOC: HO.ED 03:33 → HO.EDOVER 04:34 → HO.IMC 13:48
PROVIDERS: Internal Medicine Gastroenterology; Admitting Provider Student in an Organized Health Care Education/Training Program; Emergency Provider Internal Medicine; PCP Internal Medicine; Visit Provider Hospitalist
PROC: 0DB78ZX Excision of Stomach, Pylorus, Via Natural or Artificial Opening Endoscopic, Diagnostic (ICD-10-PCS; principal; 2023-01-30 14:20)
DX: K25.0 Acute gastric ulcer with hemorrhage (principal); K21.9 Gastro-esophageal reflux disease without esophagitis; E78.2 Mixed hyperlipidemia; I25.10 Atherosclerotic heart disease of native coronary artery without angina pectoris; Z95.1 Presence of aortocoronary bypass graft; E11.65 Type 2 diabetes mellitus with hyperglycemia; Z20.822 Contact with and (suspected) exposure to COVID-19; Z88.8 Allergy status to other drugs, medicaments and biological substances; Z79.4 Long term (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; Z79.899 Other long term (current) drug therapy
CPT/HCPCS: 36415; 74177; 80048; 80053; 82271; 82272; 82941; 82947; 83690; 85025; 85027; 85610; 85730; 86850; 86900; 86901; 87635; 88305; 88342; 99285; J2405; Q9967

== ENCOUNTER 2023-02-24 18:51 | Emergency (ER) | payer MEDICARE, SELFPAY ==
--- NOTE | ~2023-02-24 | XR_ITS ---
EXAMINATION: XR CHEST CLINICAL INFORMATION: Dizziness. Weakness. COMPARISON: Chest x-ray 04/23/2022 TECHNIQUE: Frontal portable view of the chest was obtained. 2152 hours FINDINGS: Status post median sternotomy. No acute abnormality. No pulmonary vascular congestion. Lungs are normally aerated. There is no pleural effusion and no pneumothorax. Multilevel generous spondylosis spine. XR/XR chest 1V IMPRESSION: No acute abnormality of the chest.
--- NOTE | ~2023-02-24 | CT_ITS ---
EXAMINATION: CT HEAD WITHOUT CONTRAST CT CERVICAL SPINE WITHOUT CONTRAST CLINICAL INFORMATION: Fall. Head strike. COMPARISON: None TECHNIQUE: CT of the head and cervical spine were performed without intravenous contrast. Multiplanar reformats were rendered and reviewed. This CT examination was performed using dose optimization techniques as appropriate, variously including the following: *Automated exposure control *Adjustment of mA and/or kV according to patient size (this includes techniques or standardized protocols for targeted exams where dose is matched to indication/reason for exam; i.e. extremities or head) *Use of iterative reconstruction technique DLP: 1102 mGy-cm. FINDINGS: CT head: No intracranial hemorrhage, large infarction, or mass lesion is seen. No extra-axial collection is appreciated. The ventricles are normal in size and configuration without evidence of hydrocephalus. Calcification of the distal vertebral arteries and distal internal carotid arteries. The visualized paranasal sinuses appear clear. Left mastoid air cell air-fluid level. Mild deviation of the nasal septum toward the left. CT cervical spine: The vertebral body heights appear maintained. No cervical spine fracture is seen. The cervical alignment appears normal. The paraspinal soft tissues appear within normal limits. Calcification of the carotid bulbs. The partially imaged lung apices appear clear. CT/CT cervical spine wo IV con IMPRESSION: CT head: No acute intracranial finding. Left mastoid air cell air-fluid level, suggesting mastoiditis. Atherosclerosis. CT cervical spine: No cervical spine fracture or traumatic malalignment identified. Atherosclerosis.
--- NOTE | ~2023-02-24 | CT_ITS ---
EXAMINATION: CT HEAD WITHOUT CONTRAST CT CERVICAL SPINE WITHOUT CONTRAST CLINICAL INFORMATION: Fall. Head strike. COMPARISON: None TECHNIQUE: CT of the head and cervical spine were performed without intravenous contrast. Multiplanar reformats were rendered and reviewed. This CT examination was performed using dose optimization techniques as appropriate, variously including the following: *Automated exposure control *Adjustment of mA and/or kV according to patient size (this includes techniques or standardized protocols for targeted exams where dose is matched to indication/reason for exam; i.e. extremities or head) *Use of iterative reconstruction technique DLP: 1102 mGy-cm. FINDINGS: CT head: No intracranial hemorrhage, large infarction, or mass lesion is seen. No extra-axial collection is appreciated. The ventricles are normal in size and configuration without evidence of hydrocephalus. Calcification of the distal vertebral arteries and distal internal carotid arteries. The visualized paranasal sinuses appear clear. Left mastoid air cell air-fluid level. Mild deviation of the nasal septum toward the left. CT cervical spine: The vertebral body heights appear maintained. No cervical spine fracture is seen. The cervical alignment appears normal. The paraspinal soft tissues appear within normal limits. Calcification of the carotid bulbs. The partially imaged lung apices appear clear. CT/CT head/brain wo IV con IMPRESSION: CT head: No acute intracranial finding. Left mastoid air cell air-fluid level, suggesting mastoiditis. Atherosclerosis. CT cervical spine: No cervical spine fracture or traumatic malalignment identified. Atherosclerosis.
--- NOTE | ~2023-02-24 | XR_ITS ---
EXAMINATION: XR SHOULDER, LEFT CLINICAL INFORMATION: Pain. Fall. COMPARISON: None available. TECHNIQUE: Three views of the left shoulder. FINDINGS: No fracture. No dislocation. Degenerative joint narrowing of the glenohumeral joint. Bone spurs of the humeral head and glenoid. The acromioclavicular joint is normal. There is a linear calcification adjacent to the greater tuberosity of the humeral head measuring about 1 cm in length. This consistent with calcific tendinosis/bursitis. XR/XR shoulder LT min 2V IMPRESSION: 1. No acute abnormality. 2. Degenerative joint disease of the glenohumeral joint. 3. Calcific tendinosis/bursitis.
--- NOTE | 2023-02-24 19:10 | ED_ITS ---
HPI - Dizziness General Chief Complaint: Fall <JAQUAN Melgoza - Last Filed: 02/24/23 19:17> Stated Complaint: Dizziness/slow pulse <JAQUAN Melgoza - Last Filed: 02/24/23 19:17> Time Seen by Provider: 02/24/23 20:46 <JAQUAN Melgoza - Last Filed: 02/24/23 19:17> Source: patient and family () <Priya May MD - Last Filed: 02/25/23 03:22> Mode of arrival: ambulatory <Priya May MD - Last Filed: 02/25/23 03:22> History of Present Illness HPI Narrative: 67-year-old male presents with his with increased fatigue/dizziness and feeling foggy after he fell with a positive head strike but denies any loss of consciousness or the use of blood thinners. He also complains a left shoulder pain. He was recently admitted for treatment for a GI bleed and ulcers. <Priya May MD - Last Filed: 02/25/23 03:22> Related Data Home Medications: Home Medications Medication Instructions Recorded Confirmed aspirin 81 mg tablet,delayed 81 mg PO DAILY 10/05/20 01/30/23 release insulin glargine 100 unit/mL (3 20 unit subcut DAILY 08/30/22 01/30/23 mL) subcutaneous pen (Basaglar KwikPen U-100 Insulin) cholestyramine-aspartame 4 gram 4 g PO BID PRN Diarrhea 01/30/23 01/30/23 oral powder (Prevalite) dulaglutide 1.5 mg/0.5 mL 1.5 mg subcut HOUSER 01/30/23 01/30/23 subcutaneous pen injector Previous Rx's Medication Instructions Recorded pen needle, diabetic 31 gauge x #4 boxes 04/07/2101/03 (1st Tier Unifine Pentips) lancets 30 gauge (OneTouch Bertrand #300 ea 01/23/22 Plus Lancet) rosuvastatin 40 mg tablet 40 mg PO DAILY 90 days #90 tabs 03/01/22 glipizide 5 mg tablet, extended 5 mg PO DAILY 30 days #90 tabs 06/04/22 release 24 hr ezetimibe 10 mg tablet (Zetia) 10 mg PO DAILY #90 tabs 08/30/22 hydrochlorothiazide 25 mg tablet 25 mg PO DAILY 90 days #90 caps 09/29/22 amlodipine 5 mg tablet 5 mg PO DAILY #90 tabs 12/31/22 metoprolol tartrate 100 mg tablet 100 mg PO BID #180 tabs 12/31/22 olmesartan 20 mg tablet 20 mg PO DAILY 90 days #90 tabs 12/31/22 dicyclomine 20 mg tablet 20 mg PO QID PRN abdominal 01/21/23 discomfort #14 tabs ondansetron 4 mg disintegrating 4 mg PO Q8H PRN nausea and 01/21/23 tablet vomiting #10 tabs blood sugar diagnostic (OneTouch #100 ea 01/29/23 Ultra Test strips) blood-glucose meter (OneTouch #1 ea 01/29/23 Ultra2 Meter) lancets (OneTouch UltraSoft #200 ea 01/29/23 Lancets) omeprazole 40 mg capsule,delayed 40 mg PO BID #60 caps 02/01/23 release <JAQUAN Melgoza - Last Filed: 02/24/23 19:17> Allergies/Adverse Reactions: Allergies Allergy/AdvReac Type Severity Reaction Status Date / Time olmesartan Allergy Unknown Diarrhea Verified 02/24/23 19:11 <JAQUAN Melgoza - Last Filed: 02/24/23 19:17> Review of Systems Review of Systems: Pertinent positives and negatives as stated in HPI <Priya May MD - Last Filed: 02/25/23 03:22> FOR[facility]LY [facility] Past Medical History Source: nursing notes reviewed <Priya May MD - Last Filed: 02/25/23 03:22> Medical History: Medical History Anxiety and depression Coronary artery disease Diarrhea GERD (gastroesophageal reflux disease) Humeral fracture Hypercholesterolemia Hypertension Obesity (BMI 30-39.9) Screening for prostate cancer Type 2 diabetes mellitus with hyperglycemia Vitamin D deficiency <JAQUAN Melgoza - Last Filed: 02/24/23 19:17> Surgical History: Surgical History History of cholecystectomy History of colonoscopy History of coronary artery bypass graft History of repair of rotator cuff History of tonsillectomy History of umbilical hernia repair <JAQUAN Melgoza - Last Filed: 02/24/23 19:17> Family History Family History: Family History Father Lung cancer Mother Diabetes Hypertension <JAQUAN Melgoza - Last Filed: 02/24/23 19:17> Social History Social History: Social History Household Members: Family Housing: House Do you presently have visiting nurse or other home services: No Alcohol intake: never Patient Tobacco Use Status: Never used Tobacco Smoked in Last 30 Days: No e-Cigarette/Vaping Use: Never Used Second Hand Smoke Exposure: No Use of substances other than those prescribed or required for medical reasons: No Advance Directives: Yes Advance Directives on File: Yes Advance Directives Date on File: 03/07/22 service: No Current occupational status: retired Cognitive needs: No Hearing needs: No Vision needs: Yes (glasses) <JAQUAN Melgoza - Last Filed: 02/24/23 19:17> Physical Exam Vital Signs: Vital Signs: Last Vital Signs Temp 97.8 F 02/25/23 01:39 Pulse 77 02/25/23 01:39 Resp 02/25/23 01:39 BP 125/67 02/25/23 01:39 Pulse Ox 96 02/25/23 01:39 O2 Del Method Room Air 02/24/23 23:16 BMI result Body Mass Index 28.6 <JAQUAN Melgoza - Last Filed: 02/24/23 19:17> Vital Signs: Last Vital Signs Temp 97.8 F 02/25/23 01:39 Pulse 77 02/25/23 01:39 Resp 16 02/25/23 01:39 BP 125/67 02/25/23 01:39 Pulse Ox 96 02/25/23 01:39 O2 Del Method Room Air 02/24/23 23:16 BMI result Body Mass Index 28.6 VITAL SIGNS: Reviewed. GENERAL: Well developed, well nourished, in no acute distress. HEAD: Normocephalic/atraumatic EYES: PERRLA, EOMI EARS: Ext canals without abnormality LUNGS: Normal breath sounds. No adventitious sounds or accessory muscle use. SpO2<96> CARDIOVASCULAR: Regular rate and rhythm without noted murmurs, no JVD or lower extremity edema. ABDOMEN: Soft, non-tender, non-distended with bowel sounds. MUSCULOSKELETAL: No tenderness, deformities, or effusions noted on gross inspection. EXTREMITIES: No cyanosis, clubbing or edema. SKIN: Inspection of the skin reveals no rashes NEUROLOGIC: Alert and oriented x 4. Strength and sensation to light touch were grossly intact x 4, no facial asymmetry, no pronator drift. <Priya May MD - Last Filed: 02/25/23 03:22> Course Course Course Narrative: RME: 67-year-old male with a past medical history of CAD, GERD, HLD, HTN, diabetes, anxiety/depression, recently discharged from our facility on 02/01 for upper GI bleed, presenting to the ED complaining of increasing lethargy since hospital discharge & fall today around 1700 with +head strike 2/2 feeling lightheaded/dizzy. Denies LOC. also reports left shoulder pain x 3 days. denies taking AC, CP/SOB, abd pain, N/V, rectal bleeding, melena + small lump to left scalp. No midline cervical spinous tenderness. Patient in wheelchair, appears mildly pale EKG, labs, UA, CXR shoulder x-ray, head/C-spine CT ordered Full HPI, ROS and PE to be performed by primary ED provider. <JAQUAN Melgoza - Last Filed: 02/24/23 19:17> Medications Administered Discontinued Medications Generic Name Dose Route Start Last Admin Trade Name Freq PRN Reason Stop Dose Admin Sodium Chloride 1,000 mls @ 999 mls/hr 02/24/23 23:00 02/25/23 00:30 Ns IV 02/25/23 00:00 Infused .Q1H1M SWETHA Infusion <JAQUAN Melgoza - Last Filed: 02/24/23 19:17> Medications Administered Discontinued Medications Generic Name Dose Route Start Last Admin Trade Name Freq PRN Reason Stop Dose Admin Sodium Chloride 1,000 mls @ 999 mls/hr 02/24/23 23:00 02/25/23 00:30 Ns IV 02/25/23 00:00 Infused .Q1H1M SWETHA Infusion <Priya May MD - Last Filed: 02/25/23 03:22> Medical Decision Making Medical Decision Making [facility] Narrative: 67-year-old male who presents with what appears to be physical deconditioning as well as mechanical fall. Orthostatics were grossly positive I reviewed all investigations and my interpretation is patient suffered from physical deconditioning combine with hypovolemia. Patient received IV fluids and repeat orthostatics were significantly improved. On re-evaluation patient reports that he is feeling much better and is currently not interested in pursuing short-term rehabilitation for strengthening. He understands that he can see here for few more hours until 06:00 and at that time he can talk contact his for discharge. He is otherwise stable. Patient's lab work is otherwise chronically stable, specifically leukocytosis. <Priya May MD - Last Filed: 02/25/23 03:22> Differential Diagnosis Please see the discussion above <Priya May MD - Last Filed: 02/25/23 03:22> Lab Data Please see the discussion above <Priya May MD - Last Filed: 02/25/23 03:22> Result Diagrams: 02/24/23 19:58 02/24/23 20:58 <JAQUAN Melgoza - Last Filed: 02/24/23 19:17> Labs: Lab Results 02/24/23 02/24/23 02/24/23 Range/Units 19:58 19:58 19:58 WBC 17.4 H (4.8-10.8) X10*3/uL RBC 4.90 (4.60-5.80) X10*6/uL Hgb 13.3 L (14.0-18.0) g/dl Hct 41.1 L (42.0-52.0) % MCV 83.9 (80.0-98.0) fL MCH 27.1 (27.0-33.0) pg MCHC 32.4 (31.0-36.0) g/dl RDW 13.0 (11.0-16.0) % Plt Count 316 (160-400) X10*3/uL MPV 10.7 (9.4-12.4) fL Immature Gran % (Auto) 0.6 H (0.0-0.4) % Neut % (Auto) 73.6 H (45-73) % Lymph % (Auto) 14.8 L (20-40) % [place] % (Auto) 8.8 (2-11) % Eos % (Auto) 1.7 (0-4) % Baso % (Auto) 0.5 (0-2) % Lymph # (Auto) 2.6 (1.2-4.9) X10*3/uL [place] # (Auto) 1.5 H (0.1-1.2) X10*3/uL Eos # (Auto) 0.3 (0.0-0.4) X10*3/uL Baso # (Auto) 0.1 (0.0-0.2) X10*3/uL Abs Immat Gran (auto) 0.11 H (0.00-0.03) X10*3/uL Absolute Neuts (auto) 12.8 H (2.0-8.3) x10*3/uL Absolute Nucleated RBC 0.000 (0.0-0.012) X10*3/uL Nucleated RBC % (auto) 0.0 (0.0-0.2) /100WBC PT 13.7 H (10.0-13.1) SEC INR 1.2 H (0.9-1.1) Sodium (135-145) mmol/L Potassium (3.3-5.1) mmol/L Chloride (96-108) mmol/L Carbon Dioxide (22-29) mmol/L Anion Gap (12-20) BUN (9-16) mg/dL Creatinine (0.5-1.4) mg/dL Estim Creat Clear Calc Estimated GFR Random Glucose (60-115) mg/dL Calcium (8.4-10.2) mg/dL Magnesium (1.6-2.6) mg/dL Total Bilirubin (0.0-1.0) mg/dL Direct Bilirubin (0.0-0.5) mg/dL AST (5-37) U/L ALT (0-40) U/L Alkaline Phosphatase (39-117) U/L Troponin I High Sens < 2.7 (<3.5-35.0) ng/L Total Protein (6.5-8.0) g/dL Albumin (3.5-5.0) g/dL Lipase (8-78) U/L Urine Color Urine Appearance Urine pH (5.0-9.0) Ur Specific [place] (1.005-1.025) Urine Protein (Neg-Trace) mg/dL Urine Glucose (UA) (Negative) mg/dL Urine Ketones (Negative) mg/dL Urine Blood (Negative) Urine Nitrite (Negative) Ur Leukocyte Esterase (Negative) 02/24/23 02/24/23 Range/Units 20:58 23:31 WBC (4.8-10.8) X10*3/uL RBC (4.60-5.80) X10*6/uL Hgb (14.0-18.0) g/dl Hct (42.0-52.0) % MCV (80.0-98.0) fL MCH (27.0-33.0) pg MCHC (31.0-36.0) g/dl RDW (11.0-16.0) % Plt Count (160-400) X10*3/uL MPV (9.4-12.4) fL Immature Gran % (Auto) (0.0-0.4) % Neut % (Auto) (45-73) % Lymph % (Auto) (20-40) % [place] % (Auto) (2-11) % Eos % (Auto) (0-4) % Baso % (Auto) (0-2) % Lymph # (Auto) (1.2-4.9) X10*3/uL [place] # (Auto) (0.1-1.2) X10*3/uL Eos # (Auto) (0.0-0.4) X10*3/uL Baso # (Auto) (0.0-0.2) X10*3/uL Abs Immat Gran (auto) (0.00-0.03) X10*3/uL Absolute Neuts (auto) (2.0-8.3) x10*3/uL Absolute Nucleated RBC (0.0-0.012) X10*3/uL Nucleated RBC % (auto) (0.0-0.2) /100WBC PT (10.0-13.1) SEC INR (0.9-1.1) Sodium 136 (135-145) mmol/L Potassium 4.2 (3.3-5.1) mmol/L Chloride 98 (96-108) mmol/L Carbon Dioxide 29 (22-29) mmol/L Anion Gap 13 (12-20) BUN 19 H (9-16) mg/dL Creatinine 0.90 (0.5-1.4) mg/dL Estim Creat Clear Calc 86.2 Estimated GFR > 60 Random Glucose 110 (60-115) mg/dL Calcium 8.9 (8.4-10.2) mg/dL Magnesium 1.6 (1.6-2.6) mg/dL Total Bilirubin 0.5 (0.0-1.0) mg/dL Direct Bilirubin 0.2 (0.0-0.5) mg/dL AST 20 (5-37) U/L ALT 26 (0-40) U/L Alkaline Phosphatase 104 (39-117) U/L Troponin I High Sens (<3.5-35.0) ng/L Total Protein 5.6 L (6.5-8.0) g/dL Albumin 3.3 L (3.5-5.0) g/dL Lipase 46 (8-78) U/L Urine Color Yellow Urine Appearance Clear Urine pH 5.5 (5.0-9.0) Ur Specific [place] 1.015 (1.005-1.025) Urine Protein Negative (Neg-Trace) mg/dL Urine Glucose (UA) Negative (Negative) mg/dL Urine Ketones Trace (Negative) mg/dL Urine Blood Negative (Negative) Urine Nitrite Negative (Negative) Ur Leukocyte Esterase Negative (Negative) <JAQUAN Melgoza - Last Filed: 02/24/23 19:17> Lab Results 02/24/23 02/24/23 02/24/23 Range/Units 19:58 19:58 19:58 WBC 17.4 H (4.8-10.8) X10*3/uL RBC 4.90 (4.60-5.80) X10*6/uL Hgb 13.3 L (14.0-18.0) g/dl Hct 41.1 L (42.0-52.0) % MCV 83.9 (80.0-98.0) fL MCH 27.1 (27.0-33.0) pg MCHC 32.4 (31.0-36.0) g/dl RDW 13.0 (11.0-16.0) % Plt Count 316 (160-400) X10*3/uL MPV 10.7 (9.4-12.4) fL Immature Gran % (Auto) 0.6 H (0.0-0.4) % Neut % (Auto) 73.6 H (45-73) % Lymph % (Auto) 14.8 L (20-40) % [place] % (Auto) 8.8 (2-11) % Eos % (Auto) 1.7 (0-4) % Baso % (Auto) 0.5 (0-2) % Lymph # (Auto) 2.6 (1.2-4.9) X10*3/uL [place] # (Auto) 1.5 H (0.1-1.2) X10*3/uL Eos # (Auto) 0.3 (0.0-0.4) X10*3/uL Baso # (Auto) 0.1 (0.0-0.2) X10*3/uL Abs Immat Gran (auto) 0.11 H (0.00-0.03) X10*3/uL Absolute Neuts (auto) 12.8 H (2.0-8.3) x10*3/uL Absolute Nucleated RBC 0.000 (0.0-0.012) X10*3/uL Nucleated RBC % (auto) 0.0 (0.0-0.2) /100WBC PT 13.7 H (10.0-13.1) SEC INR 1.2 H (0.9-1.1) Sodium (135-145) mmol/L Potassium (3.3-5.1) mmol/L Chloride (96-108) mmol/L Carbon Dioxide (22-29) mmol/L Anion Gap (12-20) BUN (9-16) mg/dL Creatinine (0.5-1.4) mg/dL Estim Creat Clear Calc Estimated GFR Random Glucose (60-115) mg/dL Calcium (8.4-10.2) mg/dL Magnesium (1.6-2.6) mg/dL Total Bilirubin (0.0-1.0) mg/dL Direct Bilirubin (0.0-0.5) mg/dL AST (5-37) U/L ALT (0-40) U/L Alkaline Phosphatase (39-117) U/L Troponin I High Sens < 2.7 (<3.5-35.0) ng/L Total Protein (6.5-8.0) g/dL Albumin (3.5-5.0) g/dL Lipase (8-78) U/L Urine Color Urine Appearance Urine pH (5.0-9.0) Ur Specific [place] (1.005-1.025) Urine Protein (Neg-Trace) mg/dL Urine Glucose (UA) (Negative) mg/dL Urine Ketones (Negative) mg/dL Urine Blood (Negative) Urine Nitrite (Negative) Ur Leukocyte Esterase (Negative) 02/24/23 02/24/23 Range/Units 20:58 23:31 WBC (4.8-10.8) X10*3/uL RBC (4.60-5.80) X10*6/uL Hgb (14.0-18.0) g/dl Hct (42.0-52.0) % MCV (80.0-98.0) fL MCH (27.0-33.0) pg MCHC (31.0-36.0) g/dl RDW (11.0-16.0) % Plt Count (160-400) X10*3/uL MPV (9.4-12.4) fL Immature Gran % (Auto) (0.0-0.4) % Neut % (Auto) (45-73) % Lymph % (Auto) (20-40) % [place] % (Auto) (2-11) % Eos % (Auto) (0-4) % Baso % (Auto) (0-2) % Lymph # (Auto) (1.2-4.9) X10*3/uL [place] # (Auto) (0.1-1.2) X10*3/uL Eos # (Auto) (0.0-0.4) X10*3/uL Baso # (Auto) (0.0-0.2) X10*3/uL Abs Immat Gran (auto) (0.00-0.03) X10*3/uL Absolute Neuts (auto) (2.0-8.3) x10*3/uL Absolute Nucleated RBC (0.0-0.012) X10*3/uL Nucleated RBC % (auto) (0.0-0.2) /100WBC PT (10.0-13.1) SEC INR (0.9-1.1) Sodium 136 (135-145) mmol/L Potassium 4.2 (3.3-5.1) mmol/L Chloride 98 (96-108) mmol/L Carbon Dioxide 29 (22-29) mmol/L Anion Gap 13 (12-20) BUN 19 H (9-16) mg/dL Creatinine 0.90 (0.5-1.4) mg/dL Estim Creat Clear Calc 86.2 Estimated GFR > 60 Random Glucose 110 (60-115) mg/dL Calcium 8.9 (8.4-10.2) mg/dL Magnesium 1.6 (1.6-2.6) mg/dL Total Bilirubin 0.5 (0.0-1.0) mg/dL Direct Bilirubin 0.2 (0.0-0.5) mg/dL AST 20 (5-37) U/L ALT 26 (0-40) U/L Alkaline Phosphatase 104 (39-117) U/L Troponin I High Sens (<3.5-35.0) ng/L Total Protein 5.6 L (6.5-8.0) g/dL Albumin 3.3 L (3.5-5.0) g/dL Lipase 46 (8-78) U/L Urine Color Yellow Urine Appearance Clear Urine pH 5.5 (5.0-9.0) Ur Specific [place] 1.015 (1.005-1.025) Urine Protein Negative (Neg-Trace) mg/dL Urine Glucose (UA) Negative (Negative) mg/dL Urine Ketones Trace (Negative) mg/dL Urine Blood Negative (Negative) Urine Nitrite Negative (Negative) Ur Leukocyte Esterase Negative (Negative) <Priya May MD - Last Filed: 02/25/23 03:22> Independent Interpretation I performed an independent interpretation of an: EKG <Priya May MD - Last Filed: 02/25/23 03:22> Interpretation: Normal sinus rhythm, HR-75, no STEMI, WI/QRS/QTC is within normal limits. <Priya May MD - Last Filed: 02/25/23 03:22> Radiology Impression Radiologist Impression: My interpretation is in agreement with radiology's impression of the imaging studies. <Priya May MD - Last Filed: 02/25/23 03:22> External Record Review External record reviewed: Outpatient record and Prior outpatient labs <Priya May MD - Last F iled: 02/25/23 03:22> Discharge Plan Discharge Clinical Impression: Physical deconditioning, Dehydration, Accident due to mechanical fall without injury <JAQUAN Melgoza - Last Filed: 02/24/23 19:17> Patient Disposition: Still a Patient <JAQUAN Melgoza - Last Filed: 02/24/23 19:17> Instructions: Dehydration (ED), Fatigue (ED), Fall Prevention for Older Adults (ED) <JAQUAN Melgoza - Last Filed: 02/24/23 19:17> Additional Instructions: 1. Resume all home medications as prescribed. 2. Follow-up with your primary care provider today to set up an appointment for discussion regarding physical therapy. Return to the ER for any worsening symptoms. <JAQUAN Melgoza - Last Filed: 02/24/23 19:17> Prescriptions: No Action (DME) pen needle, diabetic [1st Tier Unifine Pentips] 31 gauge x 3/16 needle See Rx Instructions .ROUTE .MEDSUPPLY Qty: 4 3RF Rx Instructions: As directed inject insulin 4 times a day rosuvastatin 40 mg tablet 40 mg PO DAILY 90 Days Qty: 90 0RF glipizide 5 mg tablet extended release 24hr 5 mg PO DAILY 30 Days Qty: 90 3RF hydrochlorothiazide 25 mg tablet 25 mg PO DAILY 90 Days Qty: 90 2RF metoprolol tartrate 100 mg tablet 100 mg PO BID Qty: 180 2RF olmesartan 20 mg tablet 20 mg PO DAILY 90 Days Qty: 90 2RF amlodipine 5 mg tablet 5 mg PO DAILY Qty: 90 2RF (DME) blood-glucose meter [OneTouch Ultra2 Meter] Misc See Rx Instructions .Route Qty: 1 0RF Rx Instructions: As directed (DME) OneTouch Ultra Test Strip See Rx Instructions .Route Qty: 100 3RF Rx Instructions: As directed (DME) lancets [OneTouch UltraSoft Lancets] [facility] See Rx Instructions .Route Qty: 200 1RF Rx Instructions: Testing 4 times a day dicyclomine 20 mg tablet 20 mg PO QID PRN (Reason: abdominal discomfort) Qty: 14 0RF ondansetron 4 mg tablet,disintegrating 4 mg PO Q8H PRN (Reason: nausea and vomiting) Qty: 10 0RF Prevalite 4 gram powder 4 g PO BID PRN (Reason: Diarrhea) Rx Instructions: 4 grams 2 times a day; DISSOLVED IN WATER dulaglutide 1.5 mg/0.5 mL pen injector 1.5 mg subcut HOUSER omeprazole 40 mg capsule,delayed release(DR/EC) 40 mg PO BID Qty: 60 2RF aspirin 81 mg tablet,delayed release (DR/EC) 81 mg PO DAILY (DME) lancets [Justin.TVTouch Delica Plus Lancet] 30 gauge misc See Rx Instructions .Route Qty: 300 3RF Rx Instructions: As directed check the BS TID insulin glargine [Basaglar KwikPen U-100 Insulin] 100 unit/mL (3 mL) insulin pen 20 unit subcut DAILY ezetimibe [Zetia] 10 mg tablet 10 mg PO DAILY Qty: 90 2RF <JAQUAN Melgoza - Last Filed: 02/24/23 19:17> Referrals: Po,Luke Hart MD [Primary Care Provider] - <JAQUAN Melgoza - Last Filed: 02/24/23 19:17>
[2023-02-24 19:11] VITALS: BP 92/57; PULSE 82; RESP 18; TEMP 36; O2SAT 100; BMI 28.6
--- NOTE | 2023-02-24 19:13 | ECG_ITS ---
Test Reason : dizziness Blood Pressure : / mmHG Vent. Rate : 075 BPM Atrial Rate : 075 BPM P-R Int : 184 ms QRS Dur : 094 ms QT Int : 416 ms P-R-T Axes : 000 153 138 degrees QTc Int : 464 ms Suspect limb lead reversal, interpretation assumes no reversal Normal sinus rhythm Lateral infarct , age undetermined Abnormal ECG When compared with ECG of 23-APR-2022 14:20, QRS axis Shifted right T wave inversion now evident in Lateral leads Referred By: Eugenia Wallace Electronically Signed By:CAITLIN MCKEON
[2023-02-24 20:03] LABS: MANUAL DIFF FLAG NO
[2023-02-24 20:05] LABS: Basophils Absolute Auto 0.1 X10*3/uL (0.0-0.2); Basophils Percent Auto 0.5 % (0-2); Eosinophils Absolute Auto 0.3 X10*3/uL (0.0-0.4); Eosinophils Percent Auto 1.7 % (0-4); Hematocrit 41.1 % (42.0-52.0); Hemoglobin 13.3 g/dl (14.0-18.0); Imm Gran Abs Auto 0.11 X10*3/uL (0.00-0.03); Imm Gran Pct Auto 0.6 % (0.0-0.4); Lymphocytes Absolute Auto 2.6 X10*3/uL (1.2-4.9); Lymphocytes Percent Auto 14.8 % (20-40); Mean Corpuscular HGB Conc 32.4 g/dl (31.0-36.0); Mean Corpuscular Hemoglobin 27.1 pg (27.0-33.0); Mean Corpuscular Volume 83.9 fL (80.0-98.0); Mean Platelet Volume 10.7 fL (9.4-12.4); Monocytes Absolute Auto 1.5 X10*3/uL (0.1-1.2); Monocytes Percent Auto 8.8 % (2-11); Neutrophils Absolute Auto 12.8 x10*3/uL (2.0-8.3); Neutrophils Percent Auto 73.6 % (45-73); Platelet Count 316 X10*3/uL (160-400); SCAN SMEAR FLAG 1; White Blood Count 17.4 X10*3/uL (4.8-10.8)
[2023-02-24 20:11] LABS: INTERNATIONAL NORM RATIO 1.2 (0.9-1.1); Prothrombin Time 13.7 SEC (10.0-13.1)
[2023-02-24 20:30] LABS: Troponin-I High Sensitivity < 2.7 ng/L (<3.5-35.0)
[2023-02-24 21:04] VITALS: BP 115/56; PULSE 76
[2023-02-24 21:05] VITALS: BP 108/58; BP 78/42; PULSE 79; PULSE 93
[2023-02-24 21:25] LABS: Alanine Aminotransferase 26 U/L (0-40); Albumin Level 3.3 g/dL (3.5-5.0); Alkaline Phosphatase 104 U/L (39-117); Anion Gap 13 (12-20); Aspartate Amino Transferase 20 U/L (5-37); Bilirubin Direct 0.2 mg/dL (0.0-0.5); Bilirubin Total 0.5 mg/dL (0.0-1.0); Blood Urea Nitrogen 19 mg/dL (9-16); Calcium 8.9 mg/dL (8.4-10.2); Carbon Dioxide 29 mmol/L (22-29); Chloride 98 mmol/L (96-108); Creatinine Clr Calc Pharmacy 86.2; Estimated Glomerular Filt Rate > 60; Glucose Random 110 mg/dL (60-115); Lipase 46 U/L (8-78); Magnesium 1.6 mg/dL (1.6-2.6); Potassium 4.2 mmol/L (3.3-5.1); Sodium 136 mmol/L (135-145); Total Protein 5.6 g/dL (6.5-8.0)
[2023-02-24 23:16] VITALS: BP 104/49; PULSE 77; RESP 20; TEMP 36.7; O2SAT 97
[2023-02-24] MEDS: 0.9 % Sodium Chloride 1,000 ML 999 ML IV (23:19)
[2023-02-24 23:20] VITALS: BP 97/56; PULSE 81
--- NOTE | 2023-02-24 23:27 | MHC.EDTECH ---
I took over this assignment vitals taken and entered and urine sent
[2023-02-24 23:59] LABS: Appearance Urine Clear; Color Urine Yellow; Glucose Urine UA Negative (Negative); Leukocyte Esterase Urine Negative (Negative); Nitrite Urine Negative (Negative); PH 5.5 (5.0-9.0); Specific Gravity - Urine 1.015 (1.005-1.025); Urine Blood Negative (Negative); Urine Ketones Trace mg/dL (Negative); Urine Protein Negative (Neg-Trace)
[2023-02-25 00:30] VITALS: BP 134/59; PULSE 77
[2023-02-25 00:32] VITALS: BP 101/53; PULSE 90
[2023-02-25 01:39] VITALS: BP 125/67; PULSE 77; RESP 16; TEMP 36.6; O2SAT 96
[2023-02-25 03:30] VITALS: BP 113/56; PULSE 73; RESP 20; O2SAT 94
[2023-02-25] MEDS: 0.9 % Sodium Chloride 1,000 ML 999 ML IV (03:40)
[2023-02-25 05:06] VITALS: BP 129/56; PULSE 74; RESP 14; TEMP 36.6; O2SAT 96
--- NOTE | 2023-02-25 09:51 | ECG_ITS ---
Test Reason : dizziness Blood Pressure : / mmHG Vent. Rate : 075 BPM Atrial Rate : 075 BPM P-R Int : 178 ms QRS Dur : 092 ms QT Int : 414 ms P-R-T Axes : -06 023 044 degrees QTc Int : 462 ms Normal sinus rhythm Normal ECG When compared with ECG of 24-FEB-2023 19:50, QRS axis Shifted left Referred By: Priya May Electronically Signed By:CAITLIN MCKEON
== END 2023-02-25 06:42 | disposition home or self-care (01) ==
PROVIDERS: Physician Assistant; Emergency Provider Student in an Organized Health Care Education/Training Program; PCP Internal Medicine
DX: R42 Dizziness and giddiness (principal); M54.2 Cervicalgia; E86.0 Dehydration; R51.9 Headache, unspecified; R53.83 Other fatigue; M25.512 Pain in left shoulder; R94.31 Abnormal electrocardiogram [ECG] [EKG]; I25.10 Atherosclerotic heart disease of native coronary artery without angina pectoris; Z79.899 Other long term (current) drug therapy
CPT/HCPCS: 36415; 51798; 70450; 71045; 72125; 73030; 80048; 80076; 81003; 83690; 83735; 84484; 85025; 85610; 93005; 99285

== ENCOUNTER 2023-03-20 07:56 | Outpatient (REF) | payer MEDICARE, SELFPAY ==
[2023-03-20 12:03] LABS: Creatinine Urine 120.46 mg/dL
== END 2023-03-20 07:57 | disposition home or self-care (01) ==
LOC: HO.10HDL 07:56
PROVIDERS: Visit Provider Internal Medicine
DX: Z13.89 Encounter for screening for other disorder (principal)

== ENCOUNTER 2023-03-24 14:44 | Emergency (ER) | payer MEDICARE, SELFPAY ==
[2023-03-24 14:52] VITALS: BP 160/80; BP 183/75; PULSE 90; PULSE 96; RESP 18; TEMP 36.5; O2SAT 95; O2SAT 98; BMI 31.7
[2023-03-24 16:03] LABS: Glucose, Whole Blood 258 mg/dL (60-115)
--- NOTE | 2023-03-24 16:20 | ED_ITS ---
HPI - General Adult General Chief complaint: General Medical Stated complaint: WEAK/NAUSEA/VOMITING, ABD SURG 1WK AGO Time Seen by Provider: 03/24/23 15:59 Source: patient, family, EMS, RN notes reviewed and old records reviewed Mode of arrival: EMS Limitations: no limitations History of Present Illness HPI narrative: Patient is a 68-year-old male with history of type 2 diabetes, hypertension, hypercholesterolemia, GERD, coronary artery disease s/p CABG, PUD, and anxiety/depression presenting to the emergency department with weakness, nausea, and vomiting since waking up this morning. He also reports two episodes of diarrhea since arriving to the ED. He had an EGD on 01/30, found to have multiple large mostly superficial gastric ulcers. He saw his PCP on 03/20 and was recommended to follow up with heme/onc for chronic leukocytosis and unintentional weight loss. His brother reports the appointment with heme/onc is this coming . Patient and brother deny any hematemesis or coffee ground emesis today, deny any hematochezia or melena. Denies any fevers. Denies chest pain, shortness of breath, or cough. Patient reports vomiting after taking his BP meds earlier today. MD complaint: nausea, vomiting, diarrhea Onset (ago): hour(s) Location: abdomen Radiation: non-radiation Severity: moderate Associated symptoms: nausea/vomiting Treatments prior to arrival: other (ondansetron from EMS) Related Data Home Medications Medication Instructions Recorded Confirmed aspirin 81 mg tablet,delayed 81 mg PO DAILY 10/05/20 02/26/23 release insulin glargine 100 unit/mL (3 20 unit subcut DAILY 08/30/22 02/26/23 mL) subcutaneous pen (Basaglar KwikPen U-100 Insulin) cholestyramine-aspartame 4 gram 4 g PO BID PRN Diarrhea 01/30/23 02/26/23 oral powder (Prevalite) dulaglutide 1.5 mg/0.5 mL 1.5 mg subcut HOUSER 01/30/23 02/26/23 subcutaneous pen injector Previous Rx's Medication Instructions Recorded pen needle, diabetic 31 gauge x #4 boxes 04/07/2101/03 (1st Tier Unifine Pentips) lancets 30 gauge (SpotOnWayuch Delaidan #300 ea 01/23/22 Plus Lancet) rosuvastatin 40 mg tablet 40 mg PO DAILY 90 days #90 tabs 03/01/22 glipizide 5 mg tablet, extended 5 mg PO DAILY 30 days #90 tabs 06/04/22 release 24 hr ezetimibe 10 mg tablet (Zetia) 10 mg PO DAILY #90 tabs 08/30/22 hydrochlorothiazide 25 mg tablet 25 mg PO DAILY 90 days #90 caps 09/29/22 amlodipine 5 mg tablet 5 mg PO DAILY #90 tabs 12/31/22 metoprolol tartrate 100 mg tablet 100 mg PO BID #180 tabs 12/31/22 olmesartan 20 mg tablet 20 mg PO DAILY 90 days #90 tabs 12/31/22 dicyclomine 20 mg tablet 20 mg PO QID PRN abdominal 01/21/23 discomfort #14 tabs ondansetron 4 mg disintegrating 4 mg PO Q8H PRN nausea and 01/21/23 tablet vomiting #10 tabs blood sugar diagnostic (Chongqing Yade TechnologyTouch #100 ea 01/29/23 Ultra Test strips) blood-glucose meter (OneTouch #1 ea 01/29/23 Ultra2 Meter) lancets ([place] Yade TechnologyTouch UltraSoft #200 ea 01/29/23 Lancets) omeprazole 40 mg capsule,delayed 40 mg PO BID #60 caps 02/01/23 release lidocaine 4 % topical patch 1 patch topical DAILY PRN pain #30 02/26/23 (Aspercreme (lidocaine)) ea Allergies Allergy/AdvReac Type Severity Reaction Status Date / Time olmesartan Allergy Unknown Diarrhea Verified 03/24/23 14:56 Review of Systems Review of Systems: As per HPI. Yes all other systems are reviewed and are negative Constitutional: Constitutional: Reports as per HPI [facility] Past Medical History Medical History (Updated 03/25/23 @ 00:02 by Background Dadamir) Anxiety and depression Coronary artery disease Diarrhea GERD (gastroesophageal reflux disease) Humeral fracture Hypercholesterolemia Hypertension Leukocytosis Obesity (BMI 30-39.9) Screening for prostate cancer Type 2 diabetes mellitus with hyperglycemia Vitamin D deficiency Surgical History History of cholecystectomy History of colonoscopy History of coronary artery bypass graft History of repair of rotator cuff History of tonsillectomy History of umbilical hernia repair Family History Family History Father Lung cancer Mother Diabetes Hypertension Social History Social History Household Members: Family Housing: House Do you presently have visiting nurse or other home services: No Alcohol intake: never Patient Tobacco Use Status: Never used Tobacco e-Cigarette/Vaping Use: Never Used Second Hand Smoke Exposure: No Advance Directives: Yes Advance Directives on File: Yes Advance Directives Date on File: 03/07/22 service: No Current occupational status: retired Cognitive needs: No Hearing needs: No Vision needs: Yes (glasses) Physical Exam ED Vital Signs: Vital Signs - 24 hr 03/24/23 14:52 03/24/23 16:43 03/24/23 18:55 Temperature 97.7 F Pulse Rate 96 104 H 112 H Respiratory Rate 18 20 17 Blood Pressure 183/75 H 186/82 H 151/56 H Pulse Oximetry 95 98 97 Oxygen Delivery Method Room Air Room Air Room Air BMI result Body Mass Index 31.7 Vital signs have been reviewed and appear to be correct. Blood pressure elevated. Patient reports that he vomited after taking his BP medications earlier today. Heart rate mildly elevated. Respiratory rate normal. Temperature normal. Oxygen saturation normal. Const General: cooperative and no acute distress Orientation/consciousness: oriented to person, oriented to place, oriented to time and patient oriented x3 Limitations: no limitations HENMT Head: Yes normocephalic and Yes atraumatic Ears: external ears normal General nose exam: Normal external nose present Face and sinus: Yes face symmetric Mouth: oropharynx normal and moist mucous membranes Throat: Yes uvula midline Eyes Pupils: Equal, round and reactive pupils present Neck Neck: Yes normal visual inspection and Yes supple Resp Effort & Inspection: normal respiratory effort and able to speak in complete sentences Auscultation: clear to auscultation bilaterally Cardio Rate: regular rate Rhythm: regular rhythm Heart sounds: S1 normal heart sound present and S2 normal heart sound present GI Inspection: Yes normal to inspection Palpation (GI): Soft to palpation, nontender, no guarding and No Rebound tenderness present Auscultation: Hyperactive bowel sounds present General: Yes no CVA tenderness Back/Spine/Pelvis Back: no CVA tenderness Skin General skin exam: elasticity normal and turgor normal Neuro General: oriented to person, oriented to place, oriented to time, patient oriented x3, tone normal, moves all extremities, no focal motor deficits and CN's II-XI intact bilaterally Cranial nerves: Yes Equal, round and reactive pupils present Cognition (Neuro): normal cognition Motor exam (neuro): Normal motor muscle tone present throughout Extrem General: Yes full ROM, Yes no pedal edema and Yes no calf tenderness Psych Mental Status: mental status grossly normal Affect: normal affect Thought process: Normal thought process present Course Course Course Narrative: 17:56 Patient's labs show mild increase of chronic leukocytosis, likely related to nausea/vomiting/diarrhea, glucose slightly elevated, no anion gap or other electrolyte abnormalities. Troponin negative, sxs for >6hrs. Patient still vomiting, will order metoclopramide and diphenhydramine, additional IV fluids and reassess. 19:00 Patient reports improvement in symptoms with reglan and benadryl, able to tolerate shanti lalit. Feel patient is stable for discharge home with PCP follow up. Instructed patient to keep heme/onc appointment on . Return precautions discussed at bedside. Medications Administered Discontinued Medications Generic Name Dose Route Start Last Admin Trade Name Freq PRN Reason Stop Dose Admin Diphenhydramine HCl 50 mg 03/24/23 17:39 03/24/23 17:55 Diphenhydramine Hcl 50 Mg/Ml Vial IVPUSH 03/24/23 17:40 50 mg ONCE ONE Administration Sodium Chloride 1,000 mls @ 999 mls/hr 03/24/23 16:45 03/24/23 19:33 Ns IV 03/24/23 17:45 Infused .Q1H1M SWETHA Infusion Sodium Chloride 500 mls @ 500 mls/hr 03/24/23 17:45 03/24/23 19:33 Ns IV 03/24/23 18:44 Not Given .Q1H SWETHA Metoclopramide HCl 10 mg 03/24/23 17:39 03/24/23 17:55 Metoclopramide Hcl 10 Mg/2 Ml Vial IVPUSH 03/24/23 17:40 10 mg ONCE ONE Administration Ondansetron HCl 4 mg 03/24/23 16:31 03/24/23 16:56 Ondansetron Hcl 4 Mg/2 Ml Vial IVPUSH 03/24/23 16:32 4 mg ONCE ONE Administration Medical Decision Making Medical Decision Making MDM Narrative: Patient is a 68-year-old male with history of type 2 diabetes, hypertension, hypercholesterolemia, GERD, coronary artery disease s/p CABG, PUD, and anxiety/depression presenting to the emergency department with weakness, nausea, and vomiting since this morning. On exam patient is awake, A+Ox3, hypertensive but vomited his medications earlier today, mildly tachycardic, LS CTA througho ut, abdomen is soft and nontender, without guarding or rebound tenderness, no CVA tenderness. Differential includes viral gastroenteritis, electrolyte abnormality, DKA, ACS/WA. Unlikely bowel obstruction, viscous perforation, appendicitis, pancreatitis. Patient had CT abdomen/pelvis on 01/30/23 which did not show any acute findings. Do not feel additional imaging is indicated at this time. Plan: EKG, labs, antiemetics, IV fluids, reassess Differential Diagnosis Differential Diagnoses: The differential diagnosis associated with the presentation includes As above. Admission/Observation Consideration of admission/observation: Escalation of care including ad mission/observation considered Lab Data MDM Lab Attestation statement: I reviewed the patient's lab results. 03/24/23 16:47 03/24/23 16:47 Labs: Lab Results 03/24/23 03/24/23 03/24/23 Range/Units 15:59 16:47 16:47 WBC 19.0 H (4.8-10.8) X10*3/uL RBC 4.83 (4.60-5.80) X10*6/uL Hgb 12.8 L (14.0-18.0) g/dl Hct 40.4 L (42.0-52.0) % MCV 83.6 (80.0-98.0) fL MCH 26.5 L (27.0-33.0) pg MCHC 31.7 (31.0-36.0) g/dl RDW 13.5 (11.0-16.0) % Plt Count 261 (160-400) X10*3/uL MPV 9.9 (9.4-12.4) fL Immature Gran % (Auto) 0.5 H (0.0-0.4) % Neut % (Auto) 89.2 H (45-73) % Lymph % (Auto) 5.0 L (20-40) % [place] % (Auto) 4.7 (2-11) % Eos % (Auto) 0.2 (0-4) % Baso % (Auto) 0.4 (0-2) % Lymph # (Auto) 1.0 L (1.2-4.9) X10*3/uL [place] # (Auto) 0.9 (0.1-1.2) X10*3/uL Eos # (Auto) 0.0 (0.0-0.4) X10*3/uL Baso # (Auto) 0.1 (0.0-0.2) X10*3/uL Abs Immat Gran (auto) 0.09 H (0.00-0.03) X10*3/uL Absolute Neuts (auto) 17.0 H (2.0-8.3) x10*3/uL Absolute Nucleated RBC 0.000 (0.0-0.012) X10*3/uL Nucleated RBC % (auto) 0.0 (0.0-0.2) /100WBC PT (10.0-13.1) SEC INR (0.9-1.1) Sodium 143 (135-145) mmol/L Potassium 3.7 (3.3-5.1) mmol/L Chloride 100 (96-108) mmol/L Carbon Dioxide 29 (22-29) mmol/L Anion Gap 18 (12-20) BUN 15 (9-16) mg/dL Creatinine 0.83 (0.5-1.4) mg/dL Estim Creat Clear Calc 99.7 Estimated GFR > 60 POC Glucose 258 H (60-115) mg/dL Random Glucose 257 H (60-115) mg/dL Calcium 9.6 D (8.4-10.2) mg/dL Total Bilirubin 0.5 (0.0-1.0) mg/dL AST 21 (5-37) U/L ALT 22 (0-40) U/L Alkaline Phosphatase 103 (39-117) U/L Troponin I High Sens (<3.5-35.0) ng/L Total Protein 7.2 (6.5-8.0) g/dL Albumin 4.2 (3.5-5.0) g/dL Lipase 40 (8-78) U/L Urine Color Urine Appearance Urine pH (5.0-9.0) Ur Specific [place] (1.005-1.025) Urine Protein (Neg-Trace) mg/dL Urine Glucose (UA) (Negative) mg/dL Urine Ketones (Negative) mg/dL Urine Blood (Negative) Urine Nitrite (Negative) Ur Leukocyte Esterase (Negative) 03/24/23 03/24/23 03/24/23 Range/Units 16:47 16:47 18:50 WBC (4.8-10.8) X10*3/uL RBC (4.60-5.80) X10*6/uL Hgb (14.0-18.0) g/dl Hct (42.0-52.0) % MCV (80.0-98.0) fL MCH (27.0-33.0) pg MCHC (31.0-36.0) g/dl RDW (11.0-16.0) % Plt Count (160-400) X10*3/uL MPV (9.4-12.4) fL Immature Gran % (Auto) (0.0-0.4) % Neut % (Auto) (45-73) % Lymph % (Auto) (20-40) % [place] % (Auto) (2-11) % Eos % (Auto) (0-4) % Baso % (Auto) (0-2) % Lymph # (Auto) (1.2-4.9) X10*3/uL [place] # (Auto) (0.1-1.2) X10*3/uL Eos # (Auto) (0.0-0.4) X10*3/uL Baso # (Auto) (0.0-0.2) X10*3/uL Abs Immat Gran (auto) (0.00-0.03) X10*3/uL Absolute Neuts (auto) (2.0-8.3) x10*3/uL Absolute Nucleated RBC (0.0-0.012) X10*3/uL Nucleated RBC % (auto) (0.0-0.2) /100WBC PT 12.3 (10.0-13.1) SEC INR 1.1 (0.9-1.1) Sodium (135-145) mmol/L Potassium (3.3-5.1) mmol/L Chloride (96-108) mmol/L Carbon Dioxide (22-29) mmol/L Anion Gap (12-20) BUN (9-16) mg/dL Creatinine (0.5-1.4) mg/dL Estim Creat Clear Calc Estimated GFR POC Glucose (60-115) mg/dL Random Glucose (60-115) mg/dL Calcium (8.4-10.2) mg/dL Total Bilirubin (0.0-1.0) mg/dL AST (5-37) U/L ALT (0-40) U/L Alkaline Phosphatase (39-117) U/L Troponin I High Sens < 2.7 (<3.5-35.0) ng/L Total Protein (6.5-8.0) g/dL Albumin (3.5-5.0) g/dL Lipase (8-78) U/L Urine Color Yellow Urine Appearance Clear Urine pH 7.0 (5.0-9.0) Ur Specific [place] 1.015 (1.005-1.025) Urine Protein Trace (Neg-Trace) mg/dL Urine Glucose (UA) 250 H (Negative) mg/dL Urine Ketones Trace (Negative) mg/dL Urine Blood Negative (Negative) Urine Nitrite Negative (Negative) Ur Leukocyte Esterase Negative (Negative) Discharge Plan Discharge Clinical Impression: Viral gastroenteritis Patient Disposition: Home, Self-Care Instructions: Acute Nausea and Vomiting (ED), Acute Diarrhea (ED) Additional Instructions: You have been evaluated in the emergency department today for nausea, vomiting, and diarrhea. Your evaluation suggests that your symptoms are most likely due to a viral illness which will improve on it's own with rest and fluids. Remember to drink plenty of fluids at home. Please follow up with your primary care provider within two days. Please keep your appointment with heme/onc this week. Return to the emergency department if you experience worsening or uncontrolled pain, inability to tolerate fluids by mouth, difficulty breathing, fevers 100.4? F or greater, recurrent vomiting, or any other concerning symptoms. Prescriptions: No Action (DME) pen needle, diabetic [1st Tier Unifine Pentips] 31 gauge x 3/16 needle See Rx Instructions .ROUTE .MEDSUPPLY Qty: 4 3RF Rx Instructions: As directed inject insulin 4 times a day rosuvastatin 40 mg tablet 40 mg PO DAILY 90 Days Qty: 90 0RF glipizide 5 mg tablet extended release 24hr 5 mg PO DAILY 30 Days Qty: 90 3RF hydrochlorothiazide 25 mg tablet 25 mg PO DAILY 90 Days Qty: 90 2RF metoprolol tartrate 100 mg tablet 100 mg PO BID Qty: 180 2RF olmesartan 20 mg tablet 20 mg PO DAILY 90 Days Qty: 90 2RF amlodipine 5 mg tablet 5 mg PO DAILY Qty: 90 2RF (DME) blood-glucose meter [OneTouch Ultra2 Meter] Misc See Rx Instructions .Route Qty: 1 0RF Rx Instructions: As directed (DME) OneTouch Ultra Test Strip See Rx Instructions .Route Qty: 100 3RF Rx Instructions: As directed (DME) lancets [OneTouch UltraSoft Lancets] Misc See Rx Instructions .Route Qty: 200 1RF Rx Instructions: Testing 4 times a day dicyclomine 20 mg tablet 20 mg PO QID PRN (Reason: abdominal discomfort) Qty: 14 0RF ondansetron 4 mg tablet,disintegrating 4 mg PO Q8H PRN (Reason: nausea and vomiting) Qty: 10 0RF Prevalite 4 gram powder 4 g PO BID PRN (Reason: Diarrhea) Rx Instructions: 4 grams 2 times a day; DISSOLVED IN WATER dulaglutide 1.5 mg/0.5 mL pen injector 1.5 mg subcut HOUSER omeprazole 40 mg capsule,delayed release(DR/EC) 40 mg PO BID Qty: 60 2RF aspirin 81 mg tablet,delayed release (DR/EC) 81 mg PO DAILY (DME) lancets [OneTouch Delica Plus Lancet] 30 gauge misc See Rx Instructions .Route Qty: 300 3RF Rx Instructions: As directed check the BS TID lidocaine [Aspercreme (lidocaine)] 4 % adhesive patch,medicated 1 patch topical DAILY PRN (Reason: pain) Qty: 30 0RF insulin glargine [Basaglar KwikPen U-100 Insulin] 100 unit/mL (3 mL) insulin pen 20 unit subcut DAILY ezetimibe [Zetia] 10 mg tablet 10 mg PO DAILY Qty: 90 2RF Interventions: ED Discharge Assessment Last Done: 03/24/23 19:39 Discharge Date/Time: 03/24/23 19:42
--- NOTE | 2023-03-24 16:32 | ECG_ITS ---
Test Reason : CHEST PRESSURE Blood Pressure : / mmHG Vent. Rate : 100 BPM Atrial Rate : 100 BPM P-R Int : 200 ms QRS Dur : 098 ms QT Int : 356 ms P-R-T Axes : 054 024 131 degrees QTc Int : 459 ms Normal sinus rhythm ST & T wave abnormality, consider lateral ischemia Abnormal ECG When compared with ECG of 24-FEB-2023 20:03, ST now depressed in Lateral leads Nonspecific T wave abnormality now evident in Inferior leads T wave inversion more evident in Anterolateral leads Referred By: Whitney Sevilla Electronically Signed By:Shailesh Alonzo
[2023-03-24 16:43] VITALS: BP 186/82; PULSE 104; RESP 20; O2SAT 98
[2023-03-24 16:51] LABS: MANUAL DIFF FLAG NO
[2023-03-24 16:53] LABS: Basophils Absolute Auto 0.1 X10*3/uL (0.0-0.2); Basophils Percent Auto 0.4 % (0-2); Eosinophils Percent Auto 0.2 % (0-4); Hematocrit 40.4 % (42.0-52.0); Hemoglobin 12.8 g/dl (14.0-18.0); Imm Gran Abs Auto 0.09 X10*3/uL (0.00-0.03); Imm Gran Pct Auto 0.5 % (0.0-0.4); Mean Corpuscular HGB Conc 31.7 g/dl (31.0-36.0); Mean Corpuscular Hemoglobin 26.5 pg (27.0-33.0); Mean Corpuscular Volume 83.6 fL (80.0-98.0); Mean Platelet Volume 9.9 fL (9.4-12.4); Monocytes Absolute Auto 0.9 X10*3/uL (0.1-1.2); Monocytes Percent Auto 4.7 % (2-11); Neutrophils Percent Auto 89.2 % (45-73); Platelet Count 261 X10*3/uL (160-400); Red Blood Count 4.83 X10*6/uL (4.60-5.80); Red Cell Distribution Width 13.5 % (11.0-16.0)
[2023-03-24] MEDS: 0.9 % Sodium Chloride 1,000 ML 999 ML IV (16:56)
[2023-03-24] MEDS: ondansetron HCL 4 MG/2 ML VIAL IVPUSH (16:56)
[2023-03-24 16:59] LABS: INTERNATIONAL NORM RATIO 1.1 (0.9-1.1); Prothrombin Time 12.3 SEC (10.0-13.1)
[2023-03-24 17:18] LABS: Alanine Aminotransferase 22 U/L (0-40); Albumin Level 4.2 g/dL (3.5-5.0); Alkaline Phosphatase 103 U/L (39-117); Anion Gap 18 (12-20); Aspartate Amino Transferase 21 U/L (5-37); Bilirubin Total 0.5 mg/dL (0.0-1.0); Blood Urea Nitrogen 15 mg/dL (9-16); Calcium 9.6 mg/dL (8.4-10.2); Carbon Dioxide 29 mmol/L (22-29); Chloride 100 mmol/L (96-108); Creatinine Clr Calc Pharmacy 99.7; Estimated Glomerular Filt Rate > 60; Glucose Random 257 mg/dL (60-115); Lipase 40 U/L (8-78); Potassium 3.7 mmol/L (3.3-5.1); Sodium 143 mmol/L (135-145); Total Protein 7.2 g/dL (6.5-8.0)
[2023-03-24 17:27] LABS: Troponin-I High Sensitivity < 2.7 ng/L (<3.5-35.0)
[2023-03-24] MEDS: Metoclopramide HCl 10 MG/2 ML VIAL IVPUSH (17:55)
[2023-03-24] MEDS: diphenhydrAMINE HCL 50 MG/ML VIAL IVPUSH (17:55)
[2023-03-24 18:55] VITALS: BP 151/56; PULSE 112; RESP 17; O2SAT 97
[2023-03-24 19:04] LABS: Appearance Urine Clear; Color Urine Yellow; Glucose Urine UA 250 mg/dL (Negative); Leukocyte Esterase Urine Negative (Negative); Nitrite Urine Negative (Negative); Specific Gravity - Urine 1.015 (1.005-1.025); Urine Blood Negative (Negative); Urine Ketones Trace mg/dL (Negative); Urine Protein Trace mg/dL (Neg-Trace)
== END 2023-03-24 19:42 | disposition home or self-care (01) ==
PROVIDERS: Registered Nurse Emergency; Emergency Provider Emergency Medicine; PCP Internal Medicine
DX: A08.4 Viral intestinal infection, unspecified (principal); E11.9 Type 2 diabetes mellitus without complications; R11.2 Nausea with vomiting, unspecified; R07.89 Other chest pain; I25.10 Atherosclerotic heart disease of native coronary artery without angina pectoris; Z79.4 Long term (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; Z79.899 Other long term (current) drug therapy
CPT/HCPCS: 36415; 80053; 81003; 82947; 83690; 84484; 85025; 85610; 93005; 96361; 96374; 96375; 99284; 99285; J1200; J2405; J2765

== ENCOUNTER → 2023-03-28 14:12 | Outpatient (BNV) | payer MEDICARE, SELFPAY | PROVIDERS: PCP Internal Medicine; Visit Provider Internal Medicine Medical Oncology | DX: D72.829 Elevated white blood cell count, unspecified (principal) | CPT/HCPCS: 99204; 99213 ==

== ENCOUNTER 2023-04-01 07:48 | Outpatient (REF) | payer MEDICARE, SELFPAY | END 2023-04-01 07:49 | disposition home or self-care (01) | LOC: HO.SH 07:48 | PROVIDERS: Visit Provider Internal Medicine | DX: H90.6 Mixed conductive and sensorineural hearing loss, bilateral (principal); H69.93 Unspecified Eustachian tube disorder, bilateral | CPT/HCPCS: 92557; 92567 ==

== ENCOUNTER 2023-04-03 10:00 | Outpatient (RCR) | payer MEDICARE, SELFPAY ==
--- NOTE | 2023-03-13 13:42 | MHC.PT.EP ---
[facility] [place] Office [place] [facility] [place] [facility] [address] Floridalma Rivera [address] [phone] F: [phone] F: [phone] F: [phone] F: [phone] Physical Therapy Plan of Care Date of Evaluation: Date of Surgery: N/A Diagnosis: pain in left shoulder (RC) Assessment: pt is a 68 y/o male presenting to physical therapy w/ referring diagnosis of M25.512 pain in left shoulder. Impairments include pain, decreased range of motion, decreased strength, impaired functional mobility, impaired postural awareness, and altered ambulation mechanics. pt is a good candidate for skilled PT due to age, potential remediation of impairments, typical disease/condition progression and prognosis, comorbidities, and motivation. pt would benefit from skilled PT intervention to provide a tailored strengthening and stretching exercise program, functional training, gait training, postural re-training, neuromuscular re-education, modalities as needed for pain, equipment safety demonstration. Frequency and Duration: The patient will be seen 2x/wk for 5 wks Short Term Goals: pt will be I w/ HEP to promote self-management of condition. pt will improve L shoulder flexion by 15 degrees to promote ease in reaching for objects on higher cabinets. Technical Support Intern Goals: pt will improve L shoulder flexion to at least 4-/5 to promote ease in upper body ADLs. pt will report statistically significant improvement in self-reported outcome measure, SPADI, to promote return to PLOF. Treatment Plan: Modalities to reduce pain, spasms and effusion. Manual therapy to restore motion and function. Therapeutic exercise to improve strength and flexibility. Neuromuscular re-education for posture and balance. Therapeutic activities to return to functional activities of daily living. Electronically signed by: Kerry Dominguez PT, DPT Please sign and return to therapist. Thank you for your referral.
--- NOTE | 2023-05-02 15:50 | MHC.PT.DC ---
[facility] [place] Office [place] Office [place] Office [address] Floridalma Rivera 140 [facility] [phone] F: [phone] F: [phone] F: [phone] F: [phone] Physical Therapy Discharge Report Diagnosis: pain in left shoulder (RC) Date of Surgery: N/A Date of Evaluation: 03/13/23 Date of Discharge: 05/02/23 Treatments to Date: 5 Cancellations to Date: 4 No Shows to Date: 1 Discharge Status: Recommend MD Follow-up Visit Non-compliance Discharge Summary: The patient was attending his outpatient physical therapy visits and improving regarding his shoulder range of motion and pain intensity; however, was experiencing some cardiac symptoms and cancelled his last appointment. He was receiving care at [facility] the last this therapist heard. He has not reached out to our office in one month. He is being discharged at this time. Electronically signed by: Kerry Kirk PT, DPT Please sign and return to therapist. Thank you for your referral.
== END 2023-05-02 15:50 | disposition home or self-care (01) ==
LOC: HO.PT 10:00
PROVIDERS: PCP Internal Medicine; Visit Provider Nurse Practitioner Family
DX: M25.512 Pain in left shoulder (principal)
CPT/HCPCS: 97110; 97162

== ENCOUNTER 2023-04-04 19:29 | Emergency (ER) | payer MEDICARE, SELFPAY ==
[2023-04-04 19:31] VITALS: BP 158/74; PULSE 66; RESP 18; TEMP 36; O2SAT 100; BMI 27.3
--- NOTE | 2023-04-04 19:31 | ED.GIBLEED ---
HPI - GI Bleed General Chief complaint: GI Bleed Stated complaint: black stools Time Seen by Provider: 04/04/23 20:41 Source: patient and family Mode of arrival: ambulatory History of Present Illness HPI Narrative: 68-year-old male with prior history of hematemesis presents with 4 episodes of dark stools and some mild abdominal discomfort, denies any blood thinners, shortness of breath, chest pain, dizziness but does have a history of diabetes. Related Data Home Medications Medication Instructions Recorded Confirmed insulin glargine 100 unit/mL (3 20 unit subcut DAILY 08/30/22 03/28/23 mL) subcutaneous pen (Basaglar KwikPen U-100 Insulin) cholestyramine-aspartame 4 gram 4 g PO BID PRN Diarrhea 01/30/23 03/28/23 oral powder (Prevalite) dulaglutide 1.5 mg/0.5 mL 1.5 mg subcut HOUSER 01/30/23 03/28/23 subcutaneous pen injector Previous Rx's Medication Instructions Recorded pen needle, diabetic 31 gauge x #4 boxes 04/07/2101/03 (1st Tier Unifine Pentips) lancets 30 gauge (Myri[employer] TechnologiesTouch Delica #300 ea 01/23/22 Plus Lancet) rosuvastatin 40 mg tablet 40 mg PO DAILY 90 days #90 tabs 03/01/22 ezetimibe 10 mg tablet (Zetia) 10 mg PO DAILY #90 tabs 08/30/22 hydrochlorothiazide 25 mg tablet 25 mg PO DAILY 90 days #90 caps 09/29/22 amlodipine 5 mg tablet 5 mg PO DAILY #90 tabs 12/31/22 metoprolol tartrate 100 mg tablet 100 mg PO BID #180 tabs 12/31/22 dicyclomine 20 mg tablet 20 mg PO QID PRN abdominal 01/21/23 discomfort #14 tabs ondansetron 4 mg disintegrating 4 mg PO Q8H PRN nausea and 01/21/23 tablet vomiting #10 tabs blood sugar diagnostic ([employer]ri[employer]Touch #100 ea 01/29/23 Ultra Test strips) blood-glucose meter ([employer]Touch #1 ea 01/29/23 Ultra2 Meter) lancets ([employer]Touch UltraSoft #200 ea 01/29/23 Lancets) lidocaine 4 % topical patch 1 patch topical DAILY PRN pain #30 02/26/23 (Aspercreme (lidocaine)) ea glipizide 5 mg tablet, extended 5 mg PO DAILY 30 days #90 tabs 03/29/23 release 24 hr Allergies Allergy/AdvReac Type Severity Reaction Status Date / Time olmesartan Allergy Unknown Diarrhea Verified 03/28/23 14:36 Review of Systems Review of Systems: Pertinent positives and negatives as stated in HPI PMFSH Past Medical History Source: nursing notes reviewed Medical History Anxiety and depression Coronary artery disease Diarrhea GERD (gastroesophageal reflux disease) Humeral fracture Hypercholesterolemia Hypertension Leukocytosis Obesity (BMI 30-39.9) Screening for prostate cancer Type 2 diabetes mellitus with hyperglycemia Vitamin D deficiency Surgical History History of cholecystectomy History of colonoscopy History of coronary artery bypass graft History of endoscopic gastrointestinal surgery History of repair of rotator cuff History of tonsillectomy History of umbilical hernia repair Family History Family History Father Lung cancer Mother Diabetes Hypertension Social History Social History Household Members: Family Housing: House Do you presently have visiting nurse or other home services: No Alcohol intake: never Patient Tobacco Use Status: Never used Tobacco Smoked in Last 30 Days: No e-Cigarette/Vaping Use: Never Used Second Hand Smoke Exposure: No Use of substances other than those prescribed or required for medical reasons: No Any prior treatment program specific to substance use: No Advance Directives: Yes Advance Directives on File: Yes Advance Directives Date on File: 03/07/22 service: No Current occupational status: retired Cognitive needs: No Hearing needs: No Vision needs: Yes (glasses) Physical Exam Vital Signs: Vital Signs: Last Vital Signs Temp 97.6 F 04/04/23 20:43 Pulse 64 04/04/23 20:43 Resp 18 04/04/23 20:43 BP 144/63 H 04/04/23 20:43 Pulse Ox 98 04/04/23 20:43 O2 Del Method Room Air 04/04/23 20:43 BMI result Body Mass Index 27.3 VITAL SIGNS: Reviewed. GENERAL: Well developed, well nourished, in no acute distress. HEAD: Normocephalic/atraumatic EYES: PERRLA, EOMI EARS: Ext canals without abnormality NOSE: Nares patent bilateral OROPHARYNX: no oral lesions noted, posterior pharynx clear NECK: Supple, no adenopathy LUNGS: Normal breath sounds. No adventitious sounds or accessory muscle use. SpO2<98> CARDIOVASCULAR: Regular rate and rhythm without noted murmurs, no JVD or lower extremity edema. ABDOMEN: Soft, mild tenderness to palpation on deep palpation at the right abdomen without rebound, non-distended with bowel sounds. MUSCULOSKELETAL: No tenderness, deformities, or effusions noted on gross inspection. EXTREMITIES: No cyanosis, clubbing or edema. SKIN: Inspection of the skin reveals no rashes NEUROLOGIC: Alert and oriented x 4. Strength and sensation to light touch were grossly intact x 4. Course Course Course Narrative: This is a rapid medical exam. Deferred additional HPI, ROS, PE to primary provider. 68 yo male with history of PUD, DM, HTN, HLD, obesity here with black stools x 4 episodes which began today at 430pm. No aspirin/AC therapy use. Will check labs, occult stool. VSS Medical Decision Making Medical Decision Making MDM Narrative: 68-year-old male with history and clinical presentation mildly concerning for possible GI bleed given history, guaiac is negative and lab work is chronically stable, he does not have any nausea or vomiting and has good follow-up appointments. All results discussed with he and his at bedside and he is other cohen discharged home. Differential Diagnosis Please see the discussion above Lab Data Please see the discussion above 04/04/23 19:43 04/04/23 19:43 Labs: Lab Results 04/04/23 04/04/23 04/04/23 Range/Units 19:43 19:43 19:43 WBC 13.3 H (4.8-10.8) X10*3/uL RBC 4.49 L (4.60-5.80) X10*6/uL Hgb 12.0 L (14.0-18.0) g/dl Hct 38.0 L (42.0-52.0) % MCV 84.6 (80.0-98.0) fL MCH 26.7 L (27.0-33.0) pg MCHC 31.6 (31.0-36.0) g/dl RDW 13.7 (11.0-16.0) % Plt Count 255 (160-400) X10*3/uL MPV 10.1 (9.4-12.4) fL Immature Gran % (Auto) 0.9 H (0.0-0.4) % Neut % (Auto) 66.6 (45-73) % Lymph % (Auto) 20.3 (20-40) % [place] % (Auto) 8.4 (2-11) % Eos % (Auto) 3.2 (0-4) % Baso % (Auto) 0.6 (0-2) % Lymph # (Auto) 2.7 (1.2-4.9) X10*3/uL [place] # (Auto) 1.1 (0.1-1.2) X10*3/uL Eos # (Auto) 0.4 (0.0-0.4) X10*3/uL Baso # (Auto) 0.1 (0.0-0.2) X10*3/uL Abs Immat Gran (auto) 0.12 H (0.00-0.03) X10*3/uL Absolute Neuts (auto) 8.8 H (2.0-8.3) x10*3/uL Absolute Nucleated RBC 0.000 (0.0-0.012) X10*3/uL Nucleated RBC % (auto) 0.0 (0.0-0.2) /100WBC PT 12.6 (10.0-13.1) SEC INR 1.1 (0.9-1.1) Sodium 140 (135-145) mmol/L Potassium 4.2 (3.3-5.1) mmol/L Chloride 100 (96-108) mmol/L Carbon Dioxide 29 (22-29) mmol/L Anion Gap 15 (12-20) BUN 24 H (9-16) mg/dL Creatinine 0.87 (0.5-1.4) mg/dL Estim Creat Clear Calc 82.7 Estimated GFR > 60 Random Glucose 94 (60-115) mg/dL Calcium 9.9 D (8.4-10.2) mg/dL Total Bilirubin 0.3 (0.0-1.0) mg/dL Direct Bilirubin 0.1 (0.0-0.5) mg/dL AST 33 (5-37) U/L ALT 39 (0-40) U/L Alkaline Phosphatase 87 (39-117) U/L Total Protein 6.9 (6.5-8.0) g/dL Albumin 3.8 (3.5-5.0) g/dL Stool Occult Blood (NEGATIVE) 04/04/23 Range/Units 21:07 WBC (4.8-10.8) X10*3/uL RBC (4.60-5.80) X10*6/uL Hgb (14.0-18.0) g/dl Hct (42.0-52.0) % MCV (80.0-98.0) fL MCH (27.0-33.0) pg MCHC (31.0-36.0) g/dl RDW (11.0-16.0) % Plt Count (160-400) X10*3/uL MPV (9.4-12.4) fL Immature Gran % (Auto) (0.0-0.4) % Neut % (Auto) (45-73) % Lymph % (Auto) (20-40) % [place] % (Auto) (2-11) % Eos % (Auto) (0-4) % Baso % (Auto) (0-2) % Lymph # (Auto) (1.2-4.9) X10*3/uL [place] # (Auto) (0.1-1.2) X10*3/uL Eos # (Auto) (0.0-0.4) X10*3/uL Baso # (Auto) (0.0-0.2) X10*3/uL Abs Immat Gran (auto) (0.00-0.03) X10*3/uL Absolute Neuts (auto) (2.0-8.3) x10*3/uL Absolute Nucleated RBC (0.0-0.012) X10*3/uL Nucleated RBC % (auto) (0.0-0.2) /100WBC PT (10.0-13.1) SEC INR (0.9-1.1) Sodium (135-145) mmol/L Potassium (3.3-5.1) mmol/L Chloride (96-108) mmol/L Carbon Dioxide (22-29) mmol/L Anion Gap (12-20) BUN (9-16) mg/dL Creatinine (0.5-1.4) mg/dL Estim Creat Clear Calc Estimated GFR Random Glucose (60-115) mg/dL Calcium (8.4-10.2) mg/dL Total Bilirubin (0.0-1.0) mg/dL Direct Bilirubin (0.0-0.5) mg/dL AST (5-37) U/L ALT (0-40) U/L Alkaline Phosphatase (39-117) U/L Total Protein (6.5-8.0) g/dL Albumin (3.5-5.0) g/dL Stool Occult Blood NEGATIVE (NEGATIVE) Chronic Conditions Patient?s care impacted by: Diabetes Discharge Plan Discharge Clinical Impression: Dark stools Patient Disposition: Home, Self-Care Instructions: Nutrition Tips for Relief of Diarrhea (ED) Additional Instructions: 1. Resume all home medications as prescribed. 2. Keep your prescribed appointments as scheduled. Return to the ER for any worsening symptoms. Prescriptions: No Action (DME) pen needle, diabetic [1st Tier Unifine Pentips] 31 gauge x 3/16 needle See Rx Instructions .ROUTE .MEDSUPPLY Qty: 4 3RF Rx Instructions: As directed inject insulin 4 times a day rosuvastatin 40 mg tablet 40 mg PO DAILY 90 Days Qty: 90 0RF hydrochlorothiazide 25 mg tablet 25 mg PO DAILY 90 Days Qty: 90 2RF metoprolol tartrate 100 mg tablet 100 mg PO BID Qty: 180 2RF amlodipine 5 mg tablet 5 mg PO DAILY Qty: 90 2RF (DME) blood-glucose [place]OneTouch Ultra2 Meter[place] [facility] [place] Inst[place] .[place] Qty: 1 0RF Rx Instructions: As directed (DME) OneTouch Ultra Test Strip See Rx Instructions .Route Qty: 100 3RF Rx Instructions: As directed (DME) lancets [OneTouch UltraSoft Lancets[place] [facility] [place] Rx Instructions .Route Qty: 200 1RF Rx Instructions: Testing 4 times a day glipizide 5 mg tablet extended release 24hr 5 mg PO DAILY 30 Days Qty: 90 3RF dicyclomine 20 mg tablet 20 mg PO QID PRN (Reason: abdominal discomfort) Qty: 14 0RF ondansetron 4 mg tablet,disintegrating 4 mg PO Q8H PRN (Reason: nausea and vomiting) Qty: 10 0RF Prevalite 4 gram powder 4 g PO BID PRN (Reason: Diarrhea) Rx Instructions: 4 grams 2 times a day; DISSOLVED IN WATER dulaglutide 1.5 mg/0.5 mL pen injector 1.5 mg subcut HOUSER (DME) lancets [OneTouch Delica Plus Lancet] 30 gauge misc See Rx Instructions .Route Qty: 300 3RF Rx Instructions: As directed check the BS TID lidocaine [Aspercreme (lidocaine)] 4 % adhesive patch,medicated 1 patch topical DAILY PRN (Reason: pain) Qty: 30 0RF insulin glargine [Basaglar KwikPen U-100 Insulin] 100 unit/mL (3 mL) insulin pen 20 unit subcut DAILY ezetimibe [Zetia] 10 mg tablet 10 mg PO DAILY Qty: 90 2RF Referrals: Po,Luke Hart MD [Primary Care Provider] -
[2023-04-04 19:47] LABS: MANUAL DIFF FLAG NO
[2023-04-04 19:50] LABS: Basophils Absolute Auto 0.1 X10*3/uL (0.0-0.2); Basophils Percent Auto 0.6 % (0-2); Eosinophils Absolute Auto 0.4 X10*3/uL (0.0-0.4); Eosinophils Percent Auto 3.2 % (0-4); Imm Gran Abs Auto 0.12 X10*3/uL (0.00-0.03); Imm Gran Pct Auto 0.9 % (0.0-0.4); Lymphocytes Absolute Auto 2.7 X10*3/uL (1.2-4.9); Lymphocytes Percent Auto 20.3 % (20-40); Mean Corpuscular HGB Conc 31.6 g/dl (31.0-36.0); Mean Corpuscular Hemoglobin 26.7 pg (27.0-33.0); Mean Corpuscular Volume 84.6 fL (80.0-98.0); Mean Platelet Volume 10.1 fL (9.4-12.4); Monocytes Absolute Auto 1.1 X10*3/uL (0.1-1.2); Monocytes Percent Auto 8.4 % (2-11); Neutrophils Absolute Auto 8.8 x10*3/uL (2.0-8.3); Neutrophils Percent Auto 66.6 % (45-73); Platelet Count 255 X10*3/uL (160-400); Red Blood Count 4.49 X10*6/uL (4.60-5.80); Red Cell Distribution Width 13.7 % (11.0-16.0); White Blood Count 13.3 X10*3/uL (4.8-10.8)
[2023-04-04 19:53] LABS: INTERNATIONAL NORM RATIO 1.1 (0.9-1.1); Prothrombin Time 12.6 SEC (10.0-13.1)
[2023-04-04 20:02] LABS: Alanine Aminotransferase 39 U/L (0-40); Albumin Level 3.8 g/dL (3.5-5.0); Alkaline Phosphatase 87 U/L (39-117); Anion Gap 15 (12-20); Aspartate Amino Transferase 33 U/L (5-37); Bilirubin Direct 0.1 mg/dL (0.0-0.5); Bilirubin Total 0.3 mg/dL (0.0-1.0); Blood Urea Nitrogen 24 mg/dL (9-16); Calcium 9.9 mg/dL (8.4-10.2); Carbon Dioxide 29 mmol/L (22-29); Chloride 100 mmol/L (96-108); Creatinine Clr Calc Pharmacy 82.7; Estimated Glomerular Filt Rate > 60; Glucose Random 94 mg/dL (60-115); Potassium 4.2 mmol/L (3.3-5.1); Sodium 140 mmol/L (135-145); Total Protein 6.9 g/dL (6.5-8.0)
[2023-04-04 20:43] VITALS: BP 144/63; PULSE 64; RESP 18; TEMP 36.4; O2SAT 98
[2023-04-04 21:11] LABS: OBS Int Ctl Valid YES; OBS1 NEGATIVE (NEGATIVE)
== END 2023-04-04 22:03 | disposition home or self-care (01) ==
PROVIDERS: Nurse Practitioner Family; Emergency Provider Student in an Organized Health Care Education/Training Program; PCP Internal Medicine
DX: R10.30 Lower abdominal pain, unspecified (principal); E11.9 Type 2 diabetes mellitus without complications; I25.10 Atherosclerotic heart disease of native coronary artery without angina pectoris; Z79.899 Other long term (current) drug therapy; Z79.4 Long term (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
CPT/HCPCS: 36415; 80048; 80076; 82272; 85025; 85610; 99283; 99284

== ENCOUNTER 2023-04-07 16:20 | Inpatient (IN) | payer MEDICARE, SELFPAY ==
[2023-04-07] VITALS (9 sets, daily range): BP systolic 126–192; BP diastolic 51–90; PULSE 67–80; RESP 14–20; TEMP 35.9–37.1; O2SAT 95–99; BMI 24.4
--- NOTE | ~2023-04-07 | XR_ITS ---
EXAMINATION: XR CHEST CLINICAL INFORMATION: Assess for free air COMPARISON: 02/24/2023 TECHNIQUE: Frontal view of the chest was obtained. FINDINGS: Heart size remains prominent. Evidence of previous cardiac surgery. There are changes of CHF with interstitial and early alveolar pulmonary edema Charlene B lines lines right base. No large pleural effusion or major zones of focal airspace disease. XR/XR chest 1V IMPRESSION: CHF with interstitial and early alveolar pulmonary edema as above.
--- NOTE | ~2023-04-07 | CT_ITS ---
EXAMINATION: CT ABDOMEN AND PELVIS WITH CONTRAST CLINICAL INFORMATION: Epigastric pain COMPARISON: 01/30/2023 TECHNIQUE: Multidetector volumetric images were obtained from the superior aspect of the liver through the pubic symphysis following administration 85 mL of Omnipaque 350 intravenous contrast. Sagittal and coronal reformatted images were obtained on the technologist's workstation. Oral contrast: No This CT examination was performed using dose optimization techniques as appropriate, variously including the following: *Automated exposure control *Adjustment of mA and/or kV according to patient size (this includes techniques or standardized protocols for targeted exams where dose is matched to indication/reason for exam; i.e. extremities or head) *Use of iterative reconstruction technique DLP: 578 mGy-cm FINDINGS: LUNG BASES: Hazy groundglass opacities at both bases. LIVER, GALLBLADDER, AND BILIARY TREE: The liver is normal in size, shape, and attenuation. No focal hepatic lesion or biliary ductal dilatation is present. Clips consistent with cholecystectomy. PANCREAS: Unremarkable. SPLEEN: Unremarkable. ADRENAL GLANDS: Unremarkable. KIDNEYS AND URETERS: The kidneys are normal in size, shape, and attenuation. No hydronephrosis, hydroureter, or calculi seen. No perinephric stranding. BLADDER: Unremarkable. GASTROINTESTINAL TRACT: The small and large bowel are notable for relatively pronounced diverticulosis throughout the colon without acute inflammatory changes. No obstruction or serosal abnormality. No obstruction. The appendix is unremarkable. ABDOMINAL WALL: No significant hernia is appreciated. LYMPH NODES: Normal. VASCULAR: Unremarkable. PELVIC VISCERA: Moderate prostamegaly. OSSEOUS STRUCTURES: Unremarkable. CT/CT abdomen pelvis w IV con IMPRESSION: 1. Diverticulosis without acute inflammatory changes. No obstruction. 2. Hazy groundglass opacities at both bases nonspecific consistent with small vessel airway disease.. Fleischner guidelines were followed.
--- NOTE | 2023-04-07 16:21 | ECG_ITS ---
Test Reason : CHEST PAIN Blood Pressure : / mmHG Vent. Rate : 068 BPM Atrial Rate : 068 BPM P-R Int : 156 ms QRS Dur : 090 ms QT Int : 414 ms P-R-T Axes : 000 020 053 degrees QTc Int : 440 ms Artifact in tracing Normal sinus rhythm Normal ECG When compared with ECG of 24-MAR-2023 16:36, ST no longer depressed in Anterolateral leads Nonspecific T wave abnormality no longer evident in Inferior leads T wave inversion no longer evident in Anterolateral leads Referred By: Generic ED Physician Electronically Signed By:CAITLIN MCKEON
--- NOTE | 2023-04-07 16:32 | MHC.EDTECH ---
TP EKG WAS TAKEN AND READ BY PROVIDER .
[2023-04-07 16:49] LABS: MANUAL DIFF FLAG NO
[2023-04-07 16:52] LABS: Basophils Absolute Auto 0.1 X10*3/uL (0.0-0.2); Basophils Percent Auto 0.5 % (0-2); Eosinophils Absolute Auto 0.5 X10*3/uL (0.0-0.4); Eosinophils Percent Auto 2.2 % (0-4); Hematocrit 41.4 % (42.0-52.0); Hemoglobin 13.2 g/dl (14.0-18.0); Imm Gran Abs Auto 0.13 X10*3/uL (0.00-0.03); Imm Gran Pct Auto 0.6 % (0.0-0.4); Lymphocytes Absolute Auto 2.2 X10*3/uL (1.2-4.9); Lymphocytes Percent Auto 10.5 % (20-40); Mean Corpuscular HGB Conc 31.9 g/dl (31.0-36.0); Mean Corpuscular Hemoglobin 26.8 pg (27.0-33.0); Mean Corpuscular Volume 84.1 fL (80.0-98.0); Mean Platelet Volume 10.1 fL (9.4-12.4); Monocytes Absolute Auto 1.2 X10*3/uL (0.1-1.2); Monocytes Percent Auto 5.7 % (2-11); Neutrophils Percent Auto 80.5 % (45-73); Platelet Count 274 X10*3/uL (160-400); Red Blood Count 4.92 X10*6/uL (4.60-5.80); Red Cell Distribution Width 13.7 % (11.0-16.0); White Blood Count 21.1 X10*3/uL (4.8-10.8)
--- NOTE | 2023-04-07 16:52 | MHC.EDTECH ---
PATIENT BLOOD DRAWN AND SENT TO LAB ,PT WAS BROUGHT BACK ROOM # 8 AND WAS HOOKED UP TO [employer] .
[2023-04-07 16:57] LABS: INTERNATIONAL NORM RATIO 1.1 (0.9-1.1); Prothrombin Time 12.5 SEC (10.0-13.1)
[2023-04-07 17:09] LABS: Alanine Aminotransferase 67 U/L (0-40); Albumin Level 4.3 g/dL (3.5-5.0); Alkaline Phosphatase 99 U/L (39-117); Anion Gap 15 (12-20); Aspartate Amino Transferase 47 U/L (5-37); Bilirubin Total 0.5 mg/dL (0.0-1.0); Blood Urea Nitrogen 24 mg/dL (9-16); Calcium 10.1 mg/dL (8.4-10.2); Carbon Dioxide 29 mmol/L (22-29); Chloride 100 mmol/L (96-108); Creatinine Clr Calc Pharmacy 71.9; Estimated Glomerular Filt Rate > 60; Glucose Random 157 mg/dL (60-115); Magnesium 1.7 mg/dL (1.6-2.6); Potassium 3.8 mmol/L (3.3-5.1); Sodium 140 mmol/L (135-145); Total Protein 7.7 g/dL (6.5-8.0)
[2023-04-07 17:29] LABS: Troponin-I High Sensitivity < 2.7 ng/L (<3.5-35.0)
[2023-04-07] MEDS: 0.9 % Sodium Chloride 2,000 ML 999 ML IVCONT (17:29)
[2023-04-07] MEDS: ondansetron HCL 4 MG/2 ML VIAL IVPUSH (17:30)
[2023-04-07] MEDS: Morphine Sulfate 4 MG/ML CARTRIDGE IVPUSH (17:30)
[2023-04-07 17:36] LABS: Partial Thromboplastin Time 32.9 SEC (26.0-36.4)
[2023-04-07 17:41] LABS: OBS Int Ctl Valid YES; OBS1 NEGATIVE (NEGATIVE)
[2023-04-07 17:43] LABS: Lactic Acid 0.8 mmol/L (0.5-2.0)
--- NOTE | 2023-04-07 17:48 | ED_ITS ---
HPI - Chest Pain General Chief Complaint: Chest Pain Stated Complaint: chest pain Time Seen by Provider: 04/07/23 16:40 Source: patient Mode of arrival: wheelchair Limitations: no limitations History of Present Illness HPI narrative: Patient comes to the emergency room complaining of epigastric pain, nausea, vomiting and diarrhea, mild substernal chest pain/epigastric pain. Patient states that any time that he stands up he feels lightheaded, no episodes of syncope. Patient states that approximately 4 hours ago, patient had an episode of vomiting. Then, patient went to sit down, which DB and then started having epigastric/substernal chest pain. Patient states that the chest/abdomen discomfort was initially 10/10, now 8/10. Patient mostly complaining of feeling nauseous. Of note, 2 weeks ago patient was seen here in the emergency room, diagnosed with viral gastroenteritis, then he was seen here 3 days ago for black stools, wake test was negative. Patient is not on any blood thinners, not on aspirin. Patient's states that approximately 2 weeks ago patient had an endoscopy done. Also, patient is being followed by Hematology/Oncology for chronic leukocytosis. Patient was seen by Dr. Rahman on 03/28/2023, patient is being worked up for reactive leukocytosis/leukemoid reaction, myeloproliferative neoplasm possibly CML. Patient has a follow-up appointment pending April 2023 Related Data Home Medications Medication Instructions Recorded Confirmed insulin glargine 100 unit/mL (3 23 unit subcut DAILY 08/30/22 04/07/23 mL) subcutaneous pen (Basaglar KwikPen U-100 Insulin) cholestyramine-aspartame 4 gram 4 g PO BID PRN Diarrhea 01/30/23 04/07/23 oral powder (Prevalite) dulaglutide 1.5 mg/0.5 mL 1.5 mg subcut HOUSER 01/30/23 04/07/23 subcutaneous pen injector olmesartan 20 mg tablet 20 mg PO DAILY 04/07/23 omeprazole 40 mg capsule,delayed 40 mg PO DAILY@0630 04/07/23 04/07/23 release polyethylene glycol 3350 17 17 g PO DAILY PRN Constipation 04/07/23 04/07/23 gram/dose oral powder (Miralax) rosuvastatin 40 mg tablet 40 mg PO BEDTIME 04/07/23 04/07/23 Previous Rx's Medication Instructions Recorded pen needle, diabetic 31 gauge x #4 boxes 04/07/2101/03 (1st Tier Unifine Pentips) lancets 30 gauge (OneTouch Delica #300 ea 01/23/22 Plus Lancet) ezetimibe 10 mg tablet (Zetia) 10 mg PO DAILY #90 tabs 08/30/22 hydrochlorothiazide 25 mg tablet 25 mg PO DAILY 90 days #90 caps 09/29/22 amlodipine 5 mg tablet 5 mg PO DAILY #90 tabs 12/31/22 metoprolol tartrate 100 mg tablet 100 mg PO BID #180 tabs 12/31/22 blood sugar diagnostic (CNZZTouch #100 ea 01/29/23 Ultra Test strips) blood-glucose meter (OneTouch #1 ea 01/29/23 Ultra2 Meter) lancets (CNZZTouch UltraSoft #200 ea 01/29/23 Lancets) glipizide 5 mg tablet, extended 5 mg PO DAILY 30 days #90 tabs 03/29/23 release 24 hr Allergies Allergy/AdvReac Type Severity Reaction Status Date / Time olmesartan Allergy Unknown Diarrhea Verified 03/28/23 14:36 Review of Systems Review of Systems: Constitutional : No Weight loss, No Fever, No Chills, No Night Sweats, No Fatigue, No Malaise ENT/Mouth : No Hearing loss, No Ear Pain, No Nasal Congestion, No Sinus Pain, No Hoarseness, No sore throat, No Rhinorrhea, No Swallowing Difficulty Eyes: No Eye Pain, No Swelling, No Redness, No Foreign Body, No Discharge, No Vision Changes Cardiovascular : Unclear if patient is having chest pain versus epigastric pain, No SOB, No Dyspnea on Exertion, No Orthopnea, No Edema, No Palpitations Respiratory : No Cough, No Sputum, No Wheezing, No Smoke Exposure, No Dyspnea Gastrointestinal : Complaining of nausea, vomiting, diarrhea, epigastric pain, distension Genitourinary : no irregular bleeding, No Dysuria, No Urinary Frequency, No Hem aturia, No Urinary Incontinence, No Urgency, No Flank Pain, No Urinary Flow Changes, No Hesitancy Musculoskeletal : No joint pain, No Myalgias, No Joint Swelling Skin : No Skin Lesions, No rash Neuro : No Weakness, No Numbness, No Paresthesias, No Loss of Consciousness, No Dizziness, No Headache Psych : No Anxiety/Panic, No Depression, No SI/HI/AH/VH, No Social Issues, Heme/Lymph: No Bruising, No Bleeding,No Lymphadenopathy, being worked up for possible CML, a common reaction? Endocrine : No Polyuria, No Polydipsia, No Temperature Intolerance [facility] Past Medical History Medical History Anxiety and depression Coronary artery disease Diarrhea GERD (gastroesophageal reflux disease) Humeral fracture Hypercholesterolemia Hypertension Leukocytosis Obesity (BMI 30-39.9) Screening for prostate cancer Type 2 diabetes mellitus with hyperglycemia Vitamin D deficiency Surgical History History of cholecystectomy History of colonoscopy History of coronary artery bypass graft History of endoscopic gastrointestinal surgery History of repair of rotator cuff History of tonsillectomy History of umbilical hernia repair Family History Family History Father Lung cancer Mother Diabetes Hypertension Social History Social History Household Members: Family Housing: House Do you presently have visiting nurse or other home services: No Alcohol intake: never Patient Tobacco Use Status: Never used Tobacco Smoked in Last 30 Days: No e-Cigarette/Vaping Use: Never Used Second Hand Smoke Exposure: No Use of substances other than those prescribed or required for medical reasons: No Advance Directives: Yes Advance Directives on File: Yes Advance Directives Date on File: 03/07/22 service: No Current occupational status: retired Cognitive needs: No Hearing needs: No Vision needs: Yes (glasses) Physical Exam Vital Signs: Vital Signs: Last Vital Signs Temp 98.8 F 04/07/23 22:20 Pulse 80 04/07/23 22:20 Resp 20 04/07/23 22:20 BP 151/70 H 04/07/23 22:20 Pulse Ox 95 04/07/23 22:20 O2 Del Method Aerosol Mask 04/07/23 22:20 O2 Flow Rate 5 04/07/23 20:36 BMI result Body Mass Index 24.4 Const: Other: Appearance: Alert. Oriented X3. Ill-appearing Eyes: Pupils equal, round and reactive to light. ENT: Pharynx normal. Neck: Normal inspection. Neck supple. No lymph nodes noted. No crepitus CVS: Normal heart rate and rhythm. Pulses normal. Normal S1 and S2 Respiratory: No respiratory distress. Breath sounds normal. No Wheezing. No rales Abdomen: Soft seems to have tenderness in epigastric area, no rebound or guarding, actively vomiting. Digital rectal exam shows brown stool Skin: Skin cold and clammy Extremities: +1 trace pitting edema bilaterally, No Lacerations. No Rash Neuro: Oriented X 3. No motor deficit. No sensory deficit. Moving all extremities. No slurred speech. CN 2 through 12 grossly intact Psych: calm, cooperative, normal affect Course Course Course Narrative: -patient having nausea vomiting diarrhea, epigastric pain, patient has history of ulcer and GI bleed. At this time, it seems the patient has epigastric/subst ernal chest pain is most likely gastrointestinal rather than cardiac. -EKG on arrival did not show any worrisome abnormalities for STEMI Medications Administered Discontinued Medications Generic Name Dose Route Start Last Admin Trade Name Freq PRN Reason Stop Dose Admin Sodium Chloride 2,000 mls @ 999 mls/hr 04/07/23 17:06 04/07/23 20:00 Ns IVCONT 04/07/23 19:06 0 mls/hr .Q2H1M ONE Infusion Iohexol 100 ml 04/07/23 18:15 04/07/23 18:15 Iohexol 350 Mg/Ml 100 Ml Infus..Btl IV 04/07/23 18:16 85 ml ONCE ONE Administration Morphine Sulfate 4 mg 04/07/23 17:06 04/07/23 17:30 Morphine Sulfate 4 Mg/Ml Cartridge IVPUSH 04/07/23 17:07 4 mg ONCE ONE Administration Protocol Nitroglycerin 0.4 mg 04/07/23 17:06 04/07/23 19:59 Nitroglycerin 0.4 Mg Tab.Subl SUBLINGUAL 04/07/23 17:07 Not Given ONCE ONE Ondansetron HCl 4 mg 04/07/23 17:06 04/07/23 17:30 Ondansetron Hcl 4 Mg/2 Ml Vial IVPUSH 04/07/23 17:07 4 mg ONCE ONE Administration Medical Decision Making Medical Decision Making [facility] Narrative: -my interpretation of EKG: Normal sinus rhythm, heart rate 68, no ST segment depression or elevation, no T-wave inversion, QTC 440 -troponin 1. Negative -blood cell count 21, higher than average. Of note, patient is being followed by Hematology/Oncology for possible CML, leukemoid reaction -blood pressure in the 150s to 160s, sepsis not suspected -patient receiving IV fluids, Zofran, morphine. -blood guaiac stool negative -just a strange shows pulmonary edema. To patient's knowledge, he does not have history of congestive heart failure. Patient given 60 mg of IV Lasix. -patient's troponin increased from 2.7 to 84.2, patient states that he has no chest pain anymore. Please increase in troponin likely secondary to demand ischemia Admission/Observation Consideration of admission/observation: Escalation of care including admission/observation considered Consult Healthcare Provider Management of the patient was discussed with: Hospitalist Lab Data MDM Lab Attestation statement: I reviewed the patient's lab results. 04/07/23 16:45 04/07/23 16:45 Labs: Lab Results 04/07/23 04/07/23 04/07/23 Range/Units 16:45 16:45 16:45 WBC 21.1 H (4.8-10.8) X10*3/uL RBC 4.92 (4.60-5.80) X10*6/uL Hgb 13.2 L (14.0-18.0) g/dl Hct 41.4 L (42.0-52.0) % MCV 84.1 (80.0-98.0) fL MCH 26.8 L (27.0-33.0) pg MCHC 31.9 (31.0-36.0) g/dl RDW 13.7 (11.0-16.0) % Plt Count 274 (160-400) X10*3/uL MPV 10.1 (9.4-12.4) fL Immature Gran % (Auto) 0.6 H (0.0-0.4) % Neut % (Auto) 80.5 H (45-73) % Lymph % (Auto) 10.5 L (20-40) % [place] % (Auto) 5.7 (2-11) % Eos % (Auto) 2.2 (0-4) % Baso % (Auto) 0.5 (0-2) % Lymph # (Auto) 2.2 (1.2-4.9) X10*3/uL [place] # (Auto) 1.2 (0.1-1.2) X10*3/uL Eos # (Auto) 0.5 H (0.0-0.4) X10*3/uL Baso # (Auto) 0.1 (0.0-0.2) X10*3/uL Abs Immat Gran (auto) 0.13 H (0.00-0.03) X10*3/uL Absolute Neuts (auto) 17.0 H (2.0-8.3) x10*3/uL Absolute Nucleated RBC 0.000 (0.0-0.012) X10*3/uL Nucleated RBC % (auto) 0.0 (0.0-0.2) /100WBC PT 12.5 (10.0-13.1) SEC INR 1.1 (0.9-1.1) APTT (26.0-36.4) SEC Sodium 140 (135-145) mmol/L Potassium 3.8 (3.3-5.1) mmol/L Chloride 100 (96-108) mmol/L Carbon Dioxide 29 (22-29) mmol/L Anion Gap 15 (12-20) BUN 24 H (9-16) mg/dL Creatinine 1.00 (0.5-1.4) mg/dL Estim Creat Clear Calc 71.9 Estimated GFR > 60 Random Glucose 157 H (60-115) mg/dL Lactic Acid (0.5-2.0) mmol/L Calcium 10.1 (8.4-10.2) mg/dL Magnesium 1.7 (1.6-2.6) mg/dL Total Bilirubin 0.5 (0.0-1.0) mg/dL AST 47 H (5-37) U/L ALT 67 H (0-40) U/L Alkaline Phosphatase 99 (39-117) U/L Troponin I High Sens (<3.5-35.0) ng/L B-Natriuretic Peptide (<100) pg/mL Total Protein 7.7 (6.5-8.0) g/dL Albumin 4.3 (3.5-5.0) g/dL Urine Color Urine Appearance Urine pH (5.0-9.0) Ur Specific [place] (1.005-1.025) Urine Protein (Neg-Trace) mg/dL Urine Glucose (UA) (Negative) mg/dL Urine Ketones (Negative) mg/dL Urine Blood (Negative) Urine Nitrite (Negative) Ur Leukocyte Esterase (Negative) Stool Occult Blood (NEGATIVE) Urine Opiates Screen (Not Detect) Urine Fentanyl Screen (Not Detect) Ur Barbiturates Screen (Not Detect) Ur Phencyclidine Scrn (Not Detect) Ur Amphetamines Screen (Not Detect) U Benzodiazepines Scrn (Not Detect) Urine Cocaine Screen (Not Detect) U Marijuana (THC) Screen (Not Detect) COVID-19 (ROSANNA) (Negative) COVID-19 Clin Com Blood Type Antibody Screen 04/07/23 04/07/23 04/07/23 Range/Units 16:45 17:15 17:19 WBC (4.8-10.8) X10*3/uL RBC (4.60-5.80) X10*6/uL Hgb (14.0-18.0) g/dl Hct (42.0-52.0) % MCV (80.0-98.0) fL MCH (27.0-33.0) pg MCHC (31.0-36.0) g/dl RDW (11.0-16.0) % Plt Count (160-400) X10*3/uL MPV (9.4-12.4) fL Immature Gran % (Auto) (0.0-0.4) % Neut % (Auto) (45-73) % Lymph % (Auto) (20-40) % [place] % (Auto) (2-11) % Eos % (Auto) (0-4) % Baso % (Auto) (0-2) % Lymph # (Auto) (1.2-4.9) X10*3/uL [place] # (Auto) (0.1-1.2) X10*3/uL Eos # (Auto) (0.0-0.4) X10*3/uL Baso # (Auto) (0.0-0.2) X10*3/uL Abs Immat Gran (auto) (0.00-0.03) X10*3/uL Absolute Neuts (auto) (2.0-8.3) x10*3/uL Absolute Nucleated RBC (0.0-0.012) X10*3/uL Nucleated RBC % (auto) (0.0-0.2) /100WBC PT (10.0-13.1) SEC INR (0.9-1.1) APTT 32.9 (26.0-36.4) SEC Sodium (135-145) mmol/L Potassium (3.3-5.1) mmol/L Chloride (96-108) mmol/L Carbon Dioxide (22-29) mmol/L Anion Gap (12-20) BUN (9-16) mg/dL Creatinine (0.5-1.4) mg/dL Estim Creat Clear Calc Estimated GFR Random Glucose (60-115) mg/dL Lactic Acid 0.8 (0.5-2.0) mmol/L Calcium (8.4-10.2) mg/dL Magnesium (1.6-2.6) mg/dL Total Bilirubin (0.0-1.0) mg/dL AST (5-37) U/L ALT (0-40) U/L Alkaline Phosphatase (39-117) U/L Troponin I High Sens < 2.7 (<3.5-35.0) ng/L B-Natriuretic Peptide (<100) pg/mL Total Protein (6.5-8.0) g/dL Albumin (3.5-5.0) g/dL Urine Color Urine Appearance Urine pH (5.0-9.0) Ur Specific [place] (1.005-1.025) Urine Protein (Neg-Trace) mg/dL Urine Glucose (UA) (Negative) mg/dL Urine Ketones (Negative) mg/dL Urine Blood (Negative) Urine Nitrite (Negative) Ur Leukocyte Esterase (Negative) Stool Occult Blood (NEGATIVE) Urine Opiates Screen (Not Detect) Urine Fentanyl Screen (Not Detect) Ur Barbiturates Screen (Not Detect) Ur Phencyclidine Scrn (Not Detect) Ur Amphetamines Screen (Not Detect) U Benzodiazepines Scrn (Not Detect) Urine Cocaine Screen (Not Detect) U Marijuana (THC) Screen (Not Detect) COVID-19 (ROSANNA) (Negative) COVID-19 Clin Com Blood Type Antibody Screen 04/07/23 04/07/23 04/07/23 Range/Units 17:35 17:35 19:32 WBC (4.8-10.8) X10*3/uL RBC (4.60-5.80) X10*6/uL Hgb (14.0-18.0) g/dl Hct (42.0-52.0) % MCV (80.0-98.0) fL MCH (27.0-33.0) pg MCHC (31.0-36.0) g/dl RDW (11.0-16.0) % Plt Count (160-400) X10*3/uL MPV (9.4-12.4) fL Immature Gran % (Auto) (0.0-0.4) % Neut % (Auto) (45-73) % Lymph % (Auto) (20-40) % [place] % (Auto) (2-11) % Eos % (Auto) (0-4) % Baso % (Auto) (0-2) % Lymph # (Auto) (1.2-4.9) X10*3/uL [place] # (Auto) (0.1-1.2) X10*3/uL Eos # (Auto) (0.0-0.4) X10*3/uL Baso # (Auto) (0.0-0.2) X10*3/uL Abs Immat Gran (auto) (0.00-0.03) X10*3/uL Absolute Neuts (auto) (2.0-8.3) x10*3/uL Absolute Nucleated RBC (0.0-0.012) X10*3/uL Nucleated RBC % (auto) (0.0-0.2) /100WBC PT (10.0-13.1) SEC INR (0.9-1.1) APTT (26.0-36.4) SEC Sodium (135-145) mmol/L Potassium (3.3-5.1) mmol/L Chloride (96-108) mmol/L Carbon Dioxide (22-29) mmol/L Anion Gap (12-20) BUN (9-16) mg/dL Creatinine (0.5-1.4) mg/dL Estim Creat Clear Calc Estimated GFR Random Glucose (60-115) mg/dL Lactic Acid (0.5-2.0) mmol/L Calcium (8.4-10.2) mg/dL Magnesium (1.6-2.6) mg/dL Total Bilirubin (0.0-1.0) mg/dL AST (5-37) U/L ALT (0-40) U/L Alkaline Phosphatase (39-117) U/L Troponin I High Sens (<3.5-35.0) ng/L B-Natriuretic Peptide (<100) pg/mL Total Protein (6.5-8.0) g/dL Albumin (3.5-5.0) g/dL Urine Color Urine Appearance Urine pH (5.0-9.0) Ur Specific [place] (1.005-1.025) Urine Protein (Neg-Trace) mg/dL Urine Glucose (UA) (Negative) mg/dL Urine Ketones (Negative) mg/dL Urine Blood (Negative) Urine Nitrite (Negative) Ur Leukocyte Esterase (Negative) Stool Occult Blood NEGATIVE (NEGATIVE) Urine Opiates Screen (Not Detect) Urine Fentanyl Screen (Not Detect) Ur Barbiturates Screen (Not Detect) Ur Phencyclidine Scrn (Not Detect) Ur Amphetamines Screen (Not Detect) U Benzodiazepines Scrn (Not Detect) Urine Cocaine Screen (Not Detect) U Marijuana (THC) Screen (Not Detect) COVID-19 (ROSANNA) Negative (Negative) COVID-19 Clin Com See Note Blood Type A Positive Antibody Screen NEGATIVE 04/07/23 04/07/23 04/07/23 Range/Units 20:11 20:16 20:59 WBC (4.8-10.8) X10*3/uL RBC (4.60-5.80) X10*6/uL Hgb (14.0-18.0) g/dl Hct (42.0-52.0) % MCV (80.0-98.0) fL MCH (27.0-33.0) pg MCHC (31.0-36.0) g/dl RDW (11.0-16.0) % Plt Count (160-400) X10*3/uL MPV (9.4-12.4) fL Immature Gran % (Auto) (0.0-0.4) % Neut % (Auto) (45-73) % Lymph % (Auto) (20-40) % [place] % (Auto) (2-11) % Eos % (Auto) (0-4) % Baso % (Auto) (0-2) % Lymph # (Auto) (1.2-4.9) X10*3/uL [place] # (Auto) (0.1-1.2) X10*3/uL Eos # (Auto) (0.0-0.4) X10*3/uL Baso # (Auto) (0.0-0.2) X10*3/uL Abs Immat Gran (auto) (0.00-0.03) X10*3/uL Absolute Neuts (auto) (2.0-8.3) x10*3/uL Absolute Nucleated RBC (0.0-0.012) X10*3/uL Nucleated RBC % (auto) (0.0-0.2) /100WBC PT (10.0-13.1) SEC INR (0.9-1.1) APTT (26.0-36.4) SEC Sodium (135-145) mmol/L Potassium (3.3-5.1) mmol/L Chloride (96-108) mmol/L Carbon Dioxide (22-29) mmol/L Anion Gap (12-20) BUN (9-16) mg/dL Creatinine (0.5-1.4) mg/dL Estim Creat Clear Calc Estimated GFR Random Glucose (60-115) mg/dL Lactic Acid (0.5-2.0) mmol/L Calcium (8.4-10.2) mg/dL Magnesium (1.6-2.6) mg/dL Total Bilirubin (0.0-1.0) mg/dL AST (5-37) U/L ALT (0-40) U/L Alkaline Phosphatase (39-117) U/L Troponin I High Sens 84.2 H D (<3.5-35.0) ng/L B-Natriuretic Peptide (<100) pg/mL Total Protein (6.5-8.0) g/dL Albumin (3.5-5.0) g/dL Urine Color Yellow Urine Appearance Clear Urine pH 5.5 (5.0-9.0) Ur Specific [place] >= 1.030 H (1.005-1.025) Urine Protein Negative (Neg-Trace) mg/dL Urine Glucose (UA) Negative (Negative) mg/dL Urine Ketones Negative (Negative) mg/dL Urine Blood Negative (Negative) Urine Nitrite Negative (Negative) Ur Leukocyte Esterase Negative (Negative) Stool Occult Blood (NEGATIVE) Urine Opiates Screen POSITIVE H (Not Detect) Urine Fentanyl Screen Not Detected (Not Detect) Ur Barbiturates Screen Not Detected (Not Detect) Ur Phencyclidine Scrn Not Detected (Not Detect) Ur Amphetamines Screen Not Detected (Not Detect) U Benzodiazepines Scrn Not Detected (Not Detect) Urine Cocaine Screen Not Detected (Not Detect) U Marijuana (THC) Screen Not Detected (Not Detect) COVID-19 (ROSANNA) (Negative) COVID-19 Clin Com Blood Type Antibody Screen 04/07/23 Range/Units 22:02 WBC (4.8-10.8) X10*3/uL RBC (4.60-5.80) X10*6/uL Hgb (14.0-18.0) g/dl Hct (42.0-52.0) % MCV (80.0-98.0) fL MCH (27.0-33.0) pg MCHC (31.0-36.0) g/dl RDW (11.0-16.0) % Plt Count (160-400) X10*3/uL MPV (9.4-12.4) fL Immature Gran % (Auto) (0.0-0.4) % Neut % (Auto) (45-73) % Lymph % (Auto) (20-40) % [place] % (Auto) (2-11) % Eos % (Auto) (0-4) % Baso % (Auto) (0-2) % Lymph # (Auto) (1.2-4.9) X10*3/uL [place] # (Auto) (0.1-1.2) X10*3/uL Eos # (Auto) (0.0-0.4) X10*3/uL Baso # (Auto) (0.0-0.2) X10*3/uL Abs Immat Gran (auto) (0.00-0.03) X10*3/uL Absolute Neuts (auto) (2.0-8.3) x10*3/uL Absolute Nucleated RBC (0.0-0.012) X10*3/uL Nucleated RBC % (auto) (0.0-0.2) /100WBC PT (10.0-13.1) SEC INR (0.9-1.1) APTT (26.0-36.4) SEC Sodium (135-145) mmol/L Potassium (3.3-5.1) mmol/L Chloride (96-108) mmol/L Carbon Dioxide (22-29) mmol/L Anion Gap (12-20) BUN (9-16) mg/dL Creatinine (0.5-1.4) mg/dL Estim Creat Clear Calc Estimated GFR Random Glucose (60-115) mg/dL Lactic Acid (0.5-2.0) mmol/L Calcium (8.4-10.2) mg/dL Magnesium (1.6-2.6) mg/dL Total Bilirubin (0.0-1.0) mg/dL AST (5-37) U/L ALT (0-40) U/L Alkaline Phosphatase (39-117) U/L Troponin I High Sens (<3.5-35.0) ng/L B-Natriuretic Peptide 194 H (<100) pg/mL Total Protein (6.5-8.0) g/dL Albumin (3.5-5.0) g/dL Urine Color Urine Appearance Urine pH (5.0-9.0) Ur Specific [place] (1.005-1.025) Urine Protein (Neg-Trace) mg/dL Urine Glucose (UA) (Negative) mg/dL Urine Ketones (Negative) mg/dL Urine Blood (Negative) Urine Nitrite (Negative) Ur Leukocyte Esterase (Negative) Stool Occult Blood (NEGATIVE) Urine Opiates Screen (Not Detect) Urine Fentanyl Screen (Not Detect) Ur Barbiturates Screen (Not Detect) Ur Phencyclidine Scrn (Not Detect) Ur Amphetamines Screen (Not Detect) U Benzodiazepines Scrn (Not Detect) Urine Cocaine Screen (Not Detect) U Marijuana (THC) Screen (Not Detect) COVID-19 (ROSANNA) (Negative) COVID-19 Clin Com Blood Type Antibody Screen Radiology Impression Discussion of test interpretation with radiology: I have reviewed the radiologist's reading. Radiologist Impression: FINDINGS: Heart size remains prominent. Evidence of previous cardiac surgery. There are changes of CHF with interstitial and early alveolar pulmonary edema Charlene B lines lines right base. No large pleural effusion or major zones of focal airspace disease. XR/XR chest 1V IMPRESSION: CHF with interstitial and early alveolar pulmonary edema as above. FINDINGS: LUNG BASES: Hazy groundglass opacities at both bases.? LIVER, GALLBLADDER, AND BILIARY TREE: The liver is normal in size, shape, and attenuation. No focal hepatic lesion or biliary ductal dilatation is present. Clips consistent with cholecystectomy.? PANCREAS: Unremarkable.? SPLEEN: Unremarkable.? ADRENAL GLANDS: Unremarkable.? KIDNEYS AND URETERS: The kidneys are normal in size, shape, and attenuation. No hydronephrosis, hydroureter, or calculi seen. No perinephric stranding. ? BLADDER: Unremarkable.? GASTROINTESTINAL TRACT: The small and large bowel are notable for relatively pronounced diverticulosis throughout the colon without acute inflammatory changes. No obstruction or serosal abnormality. No obstruction. The appendix is unremarkable.? ABDOMINAL WALL: No significant hernia is appreciated.? LYMPH NODES: Normal. VASCULAR: Unremarkable. PELVIC VISCERA: Moderate prostamegaly.? OSSEOUS STRUCTURES: Unremarkable.? CT/CT abdomen pelvis w IV con IMPRESSION: 1.? Diverticulosis without acute inflammatory changes. No obstruction. 2.? Hazy groundglass opacities at both bases nonspecific consistent with small vessel airway disease.. ? Fleischner guidelines were followed. Critical Care Time Critical Care Time Critical Care Time: Yes Total Critical Care Time: 75 Attestation: I have personally provided critical care time. Time includes review of lab data, radiology results, discussion with consultants, and monitoring for potential dec ompensation. Intervention performed as documented. Discharge Plan Discharge Clinical Impression: CHF exacerbation, Abdominal pain, Nausea & vomiting Patient Disposition: Admitted As Inpatient Prescriptions: No Action (DME) pen needle, diabetic [1st Tier Unifine Pentips] 31 gauge x 3/16 needle See Rx Instructions .ROUTE .MEDSUPPLY Qty: 4 3RF Rx Instructions: As directed inject insulin 4 times a day hydrochlorothiazide 25 mg tablet 25 mg PO DAILY 90 Days Qty: 90 2RF metoprolol tartrate 100 mg tablet 100 mg PO BID Qty: 180 2RF amlodipine 5 mg tablet 5 mg PO DAILY Qty: 90 2RF (DME) blood-glucose meter [OneTouch Ultra2 Meter] Misc See Rx Instructions .Route Qty: 1 0RF Rx Instructions: As directed (DME) OneTouch Ultra Test Strip See Rx Instructions .Route Qty: 100 3RF Rx Instructions: As directed (DME) lancets [OneTouch UltraSoft Lancets] Misc See Rx Instructions .Route Qty: 200 1RF Rx Instructions: Testing 4 times a day glipizide 5 mg tablet extended release 24hr 5 mg PO DAILY 30 Days Qty: 90 3RF Prevalite 4 gram powder 4 g PO BID PRN (Reason: Diarrhea) Rx Instructions: 4 grams 2 times a day; DISSOLVED IN WATER dulaglutide 1.5 mg/0.5 mL pen injector 1.5 mg subcut HOUSER omeprazole 40 mg capsule,delayed release(DR/EC) 40 mg PO DAILY@0630 rosuvastatin 40 mg tablet 40 mg PO BEDTIME olmesartan 20 mg tablet 20 mg PO DAILY polyethylene glycol 3350 [Miralax] 17 gram/dose Powder 17 g PO DAILY PRN (Reason: Constipation) (DME) lancets [OneTouch Delica Plus Lancet] 30 gauge misc See Rx Instructions .Route Qty: 300 3RF Rx Instructions: As directed check the BS TID insulin glargine [Basaglar KwikPen U-100 Insulin] 100 unit/mL (3 mL) insulin pen 23 unit subcut DAILY ezetimibe [Zetia] 10 mg tablet 10 mg PO DAILY Qty: 90 2RF
[2023-04-07] MEDS: iohexoL 350 MG/ML 100 ML INFUS..BTL IV (18:15)
--- NOTE | 2023-04-07 18:48 | PHA.MEDREC ---
Pharmacy Consult ? Medication Reconciliation Pharmacy has completed the medication reconciliation. Spoke to patient with patient's spouse at bedside to confirm meds. Patient's confirmed most meds, however she as well as patient are unsure if the patient still takes olmesartan and ezetimibe. plants to contact pharmacy in future to confirm whether the patient still takes the medications. Per patient's claim history, patient has been filling both medications for months now, however leaving unconfirmed until pharmacy follows up in the AM.
--- NOTE | 2023-04-07 19:32 | PC.NURSE ---
sitting up on stretcher, awake/alert/oriented. reports feeling better, mid sternal chest pain improved. no N/V. abdomen soft. skin color norm/warm/dry. moving all extremities well. covid to be completed. family at bedside. cont to monitor.
[2023-04-07 20:05] LABS: COVID-19 Test Negative (Negative); IDNOW Serial# BCCEAD1C
[2023-04-07 20:31] LABS: Appearance Urine Clear; Color Urine Yellow; Glucose Urine UA Negative (Negative); Leukocyte Esterase Urine Negative (Negative); Nitrite Urine Negative (Negative); PH 5.5 (5.0-9.0); Specific Gravity - Urine >= 1.030 (1.005-1.025); Urine Blood Negative (Negative); Urine Ketones Negative (Negative); Urine Protein Negative (Neg-Trace)
[2023-04-07 20:39] LABS: Amphetamine Screen Urine Not Detected (Not Detect); Barbiturates, Urine Not Detected (Not Detect); Benzodiazepines Screen Urine Not Detected (Not Detect); Cannabinoid Screen Urine Not Detected (Not Detect); Cocaine Screen Urine Not Detected (Not Detect); Fentanyl, urine Not Detected (Not Detect); Opiate Screen Urine POSITIVE (Not Detect); Phencyclidine Screen Urine Not Detected (Not Detect)
[2023-04-07 21:30] LABS: Troponin-I High Sensitivity 84.2 ng/L (<3.5-35.0)
[2023-04-07 22:43] LABS: B Type Natriuretic Peptide 194 pg/mL (<100)
[2023-04-07] MEDS: Furosemide 100 MG/10 ML VIAL 60 MG IVPUSH (23:19)
--- NOTE | 2023-04-07 23:47 | P.HPHOSP_ITS ---
History of Present Illness Date of Service: 04/07/23 Chief Complaint: epigastric/chest pain 68-year-old male with past medical history of CAD status post CABG in 1999, BPH, generalized anxiety disorder, history of gastroparesis, diabetes, HLD, HTN who presents the hospital with complaints of chest as well as epigastric pain. Pain is pressure-like, radiating up his chest, associated with lightheadedness, occurred while at rest about 4 hours prior to presentation to the ED. has nausea, no vomiting but says that he was spitting up stuff. Improved after receiving nitroglycerin in the ED. feeling shortness of breath, no cough or sputum production, no palpitations, no abdominal pain, no diarrhea constipation, no urinary symptoms and no lower extremity edema. he does report orthopnea and PND as well On arrival to the ED patient noted to be hypertensive otherwise stable Labs are significant for WBC count of 21, troponin that initially was less than 2.7 increased to 84, and there troponin of 165, BNP of 194, chest x-ray shows CHF with interstitial and early alveolar pulmonary edema abdomen pelvic CT shows diverticulosis without diverticulitis, and hazy ground opacities of both lungs nonspecific discussed with Cardiology, patient will be started on heparin drip, will be admitted for further management Review of Systems Review of Systems: Yes all other systems are reviewed and are negative [facility] Medical History Anxiety and depression Coronary artery disease Diarrhea GERD (gastroesophageal reflux disease) Humeral fracture Hypercholesterolemia Hypertension Leukocytosis Obesity (BMI 30-39.9) Screening for prostate cancer Type 2 diabetes mellitus with hyperglycemia Vitamin D deficiency Family History Father Lung cancer Mother Diabetes Hypertension Surgical History History of cholecystectomy History of colonoscopy History of coronary artery bypass graft History of endoscopic gastrointestinal surgery History of repair of rotator cuff History of tonsillectomy History of umbilical hernia repair Social History Household Members: Family Housing: House Do you presently have visiting nurse or other home services: No Alcohol intake: never Patient Tobacco Use Status: Never used Tobacco Smoked in Last 30 Days: No e-Cigarette/Vaping Use: Never Used Second Hand Smoke Exposure: No Use of substances other than those prescribed or required for medical reasons: No Advance Directives: Yes Advance Directives on File: Yes Advance Directives Date on File: 03/07/22 service: No Current occupational status: retired Cognitive needs: No Hearing needs: No Vision needs: Yes (glasses) Meds Allergies Allergy/AdvReac Type Severity Reaction Status Date / Time olmesartan Allergy Unknown Diarrhea Verified 03/28/23 14:36 Active Medications: Current Medications Pharmacy Consult (Consult Rx Perform Med Rec) 1 each MISCELLANE ONCE PRN PRN Reason: Consult order Home Medications Medication Instructions Recorded Confirmed Last Taken Type insulin glargine 100 unit/mL (3 23 unit subcut DAILY 08/30/22 04/07/23 04/07/23 09:00 History mL) subcutaneous pen (Basaglar KwikPen U-100 Insulin) cholestyramine-aspartame 4 gram 4 g PO BID PRN Diarrhea 01/30/23 04/07/23 Unknown History oral powder (Prevalite) dulaglutide 1.5 mg/0.5 mL 1.5 mg subcut HOUSER 01/30/23 04/07/23 01/27/23 History subcutaneous pen injector olmesartan 20 mg tablet 20 mg PO DAILY 04/07/23 04/08/23 Unknown History omeprazole 40 mg capsule,delayed 40 mg PO DAILY@0630 04/07/23 04/07/23 04/07/23 09:00 History release polyethylene glycol 3350 17 17 g PO DAILY PRN Constipation 04/07/23 04/07/23 Unknown History gram/dose oral powder (Miralax) rosuvastatin 40 mg tablet 40 mg PO BEDTIME 04/07/23 04/07/23 04/06/23 History Physical Exam Vital Signs and Narrative: Vital Signs: Last Vital Signs Temp 98.8 F 04/07/23 22:20 Pulse 80 04/07/23 22:20 Resp 20 04/07/23 22:20 BP 151/70 H 04/07/23 22:20 Pulse Ox 95 04/07/23 22:20 O2 Del Method Aerosol Mask 04/07/23 22:20 O2 Flow Rate 5 04/07/23 20:36 BMI result Body Mass Index 24.4 Const: General: cooperative and no acute distress Orientation/consciousness: patient oriented x3 Eyes: General: appearance normal, both eyes and all related structures Pupils: Equal, round and reactive pupils present Resp: Effort & Inspection: normal respiratory effort Auscultation: clear to auscultation bilaterally Cardio: Rate: regular rate Rhythm: regular rhythm GI: Palpation (GI): Soft to palpation Auscultation: normal bowel sounds Skin: General skin exam: no rashes or lesions noted Neuro: General: patient oriented x3 Cranial nerves: Yes Equal, round and reactive pupils present Cognition (Neuro): normal cognition Extrem: General: Yes normal to inspection and Yes no pedal edema Results Labs 04/07/23 16:45 04/07/23 16:45 Labs: Laboratory Results - last 24 hr 04/07/23 04/07/23 04/07/23 16:45 16:45 16:45 MCV 84.1 MCH 26.8 L MCHC 31.9 RDW 13.7 Plt Count 274 MPV 10.1 Immature Gran % (Auto) 0.6 H Neut % (Auto) 80.5 H Lymph % (Auto) 10.5 L Frontier % (Auto) 5.7 Eos % (Auto) 2.2 Baso % (Auto) 0.5 Lymph # (Auto) 2.2 Frontier # (Auto) 1.2 Eos # (Auto) 0.5 H Baso # (Auto) 0.1 Abs Immat Gran (auto) 0.13 H Absolute Neuts (auto) 17.0 H Absolute Nucleated RBC 0.000 Nucleated RBC % (auto) 0.0 PT 12.5 INR 1.1 APTT Anion Gap 15 Estim Creat Clear Calc 71.9 Estimated GFR > 60 Random Glucose 157 H Lactic Acid Calcium 10.1 Magnesium 1.7 Total Bilirubin 0.5 AST 47 H ALT 67 H Alkaline Phosphatase 99 Troponin I High Sens B-Natriuretic Peptide Total Protein 7.7 Albumin 4.3 Urine Color Urine Appearance Urine pH Ur Specific [place] Urine Protein Urine Glucose (UA) Urine Ketones Urine Blood Urine Nitrite Ur Leukocyte Esterase Stool Occult Blood Urine Opiates Screen Urine Fentanyl Screen Ur Barbiturates Screen Ur Phencyclidine Scrn Ur Amphetamines Screen U Benzodiazepines Scrn Urine Cocaine Screen U Marijuana (THC) Screen COVID-19 (ROSANNA) COVID-19 Clin Com Blood Type Antibody Screen 04/07/23 04/07/23 04/07/23 16:45 17:15 17:19 MCV MCH MCHC RDW Plt Count MPV Immature Gran % (Auto) Neut % (Auto) Lymph % (Auto) Frontier % (Auto) Eos % (Auto) Baso % (Auto) Lymph # (Auto) Frontier # (Auto) Eos # (Auto) Baso # (Auto) Abs Immat Gran (auto) Absolute Neuts (auto) Absolute Nucleated RBC Nucleated RBC % (auto) PT INR APTT 32.9 Anion Gap Estim Creat Clear Calc Estimated GFR Random Glucose Lactic Acid 0.8 Calcium Magnesium Total Bilirubin AST ALT Alkaline Phosphatase Troponin I High Sens < 2.7 B-Natriuretic Peptide Total Protein Albumin Urine Color Urine Appearance Urine pH Ur Specific [place] Urine Protein Urine Glucose (UA) Urine Ketones Urine Blood Urine Nitrite Ur Leukocyte Esterase Stool Occult Blood Urine Opiates Screen Urine Fentanyl Screen Ur Barbiturates Screen Ur Phencyclidine Scrn Ur Amphetamines Screen U Benzodiazepines Scrn Urine Cocaine Screen U Marijuana (THC) Screen COVID-19 (ROSANNA) COVID-19 Clin Com Blood Type Antibody Screen 04/07/23 04/07/23 04/07/23 17:35 17:35 19:32 MCV MCH MCHC RDW Plt Count MPV Immature Gran % (Auto) Neut % (Auto) Lymph % (Auto) Frontier % (Auto) Eos % (Auto) Baso % (Auto) Lymph # (Auto) Frontier # (Auto) Eos # (Auto) Baso # (Auto) Abs Immat Gran (auto) Absolute Neuts (auto) Absolute Nucleated RBC Nucleated RBC % (auto) PT INR APTT Anion Gap Estim Creat Clear Calc Estimated GFR Random Glucose Lactic Acid Calcium Magnesium Total Bilirubin AST ALT Alkaline Phosphatase Troponin I High Sens B-Natriuretic Peptide Total Protein Albumin Urine Color Urine Appearance Urine pH Ur Specific [place] Urine Protein Urine Glucose (UA) Urine Ketones Urine Blood Urine Nitrite Ur Leukocyte Esterase Stool Occult Blood NEGATIVE Urine Opiates Screen Urine Fentanyl Screen Ur Barbiturates Screen Ur Phencyclidine Scrn Ur Amphetamines Screen U Benzodiazepines Scrn Urine Cocaine Screen U Marijuana (THC) Screen COVID-19 (ROSANNA) Negative COVID-19 Clin Com See Note Blood Type A Positive Antibody Screen NEGATIVE 04/07/23 04/07/23 04/07/23 20:11 20:16 20:59 MCV MCH MCHC RDW Plt Count MPV Immature Gran % (Auto) Neut % (Auto) Lymph % (Auto) Frontier % (Auto) Eos % (Auto) Baso % (Auto) Lymph # (Auto) Frontier # (Auto) Eos # (Auto) Baso # (Auto) Abs Immat Gran (auto) Absolute Neuts (auto) Absolute Nucleated RBC Nucleated RBC % (auto) PT INR APTT Anion Gap Estim Creat Clear Calc Estimated GFR Random Glucose Lactic Acid Calcium Magnesium Total Bilirubin AST ALT Alkaline Phosphatase Troponin I High Sens 84.2 H D B-Natriuretic Peptide Total Protein Albumin Urine Color Yellow Urine Appearance Clear Urine pH 5.5 Ur Specific [place] >= 1.030 H Urine Protein Negative Urine Glucose (UA) Negative Urine Ketones Negative Urine Blood Negative Urine Nitrite Negative Ur Leukocyte Esterase Negative Stool Occult Blood Urine Opiates Screen POSITIVE H Urine Fentanyl Screen Not Detected Ur Barbiturates Screen Not Detected Ur Phencyclidine Scrn Not Detected Ur Amphetamines Screen Not Detected U Benzodiazepines Scrn Not Detected Urine Cocaine Screen Not Detected U Marijuana (THC) Screen Not Detected COVID-19 (ROSANNA) COVID-19 [employer] Com Blood Type Antibody Screen 04/07/23 22:02 MCV MCH MCHC RDW Plt Count MPV Immature Gran % (Auto) Neut % (Auto) Lymph % (Auto) Frontier % (Auto) Eos % (Auto) Baso % (Auto) Lymph # (Auto) Frontier # (Auto) Eos # (Auto) Baso # (Auto) Abs Immat Gran (auto) Absolute Neuts (auto) Absolute Nucleated RBC Nucleated RBC % (auto) PT INR APTT Anion Gap Estim Creat Clear Calc Estimated GFR Random Glucose Lactic Acid Calcium Magnesium Total Bilirubin AST ALT Alkaline Phosphatase Troponin I High Sens B-Natriuretic Peptide 194 H Total Protein Albumin Urine Color Urine Appearance Urine pH Ur Specific [place] Urine Protein Urine Glucose (UA) Urine Ketones Urine Blood Urine Nitrite Ur Leukocyte Esterase Stool Occult Blood Urine Opiates Screen Urine Fentanyl Screen Ur Barbiturates Screen Ur Phencyclidine Scrn Ur Amphetamines Screen U Benzodiazepines Scrn Urine Cocaine Screen U Marijuana (THC) Screen COVID-19 (ROSANNA) COVID-19 [employer] Com Blood Type Antibody Screen Imaging Radiologist's Impressions: Impressions Abdomen/Pelvis CT 04/07/23 18:23 IMPRESSION: 1. Diverticulosis without acute inflammatory changes. No obstruction. 2. Hazy groundglass opacities at both bases nonspecific consistent with small vessel airway disease.. Fleischner guidelines were followed. Chest X-Ray 06/18/23 18:24 IMPRESSION: CHF with interstitial and early alveolar pulmonary edema as above. Assessment and Plan (1) CHF exacerbation: Status: Acute (2) NSTEMI (non-ST elevated myocardial infarction): Status: Acute (3) Leukocytosis: Status: Acute Plan this is a 68-year-old male with past medical history of CAD status post CABG, HTN, HLD, diabetes on insulin presents the hospital with complaints of epigastric/chest pain/pressure, nausea, found to have NSTEMI # acute NSTEMI - typical chest pain, with elevated troponin positive delta - EKG shows nonspecific ST T wave changes - spoke to Cardiology, patient started on heparin ggt - echocardiogram, cardiology consult - added aspirin, and changed simvastatin to atorvastatin # acute CHF exacerbation - shortness of breath, orthopnea, PND, elevated BNP - evidence of volume overload on imaging - will treat with Lasix, echocardiogram, strict I&O, low-sodium diet, daily weight # leukocytosis - no evidence of acute infection - likely reactive - follow CBC # hypertension - stable - continue home antihypertensives # diabetes - continue home insulin, hold oral antihyperglycemics - will add low-dose sliding scale insulin - diabetic diet # hyperlipidemia - simvastatin changed after the statin DVT prophylaxis: Heparin ggt she is given patient's need for further evaluation of acute NSTEMI patient will require minimum 2 nights inpatient hospital stay for further management and monitoring Time Spent With Patient Time: Total time managing care of this patient today ____ minutes. Quality Stroke Does the patient have a stroke diagnosis?: No VTE Prior VTE?: No VTE Risk Level:: Medical - moderate - high VTE Device Contraindication: Treatment Not Indicated VTE Drug Contraindication: N/A - Med Ordered
[2023-04-07 23:48] LABS: PTT Heparin Drip 31.2 SEC (53-77.9)
[2023-04-07 23:57] LABS: Troponin-I High Sensitivity 165.8 ng/L (<3.5-35.0)
[2023-04-08] VITALS (9 sets, daily range): BP systolic 109–156; BP diastolic 50–77; PULSE 65–82; RESP 15–20; TEMP 36.4–37.2; O2SAT 92–100
--- NOTE | 2023-04-08 | MHC.EDTECH ---
0000 rounding done ,vitals sign taken patient is resting quietly in bed .
[2023-04-08 00:29] LABS: INTERNATIONAL NORM RATIO 1.1 (0.9-1.1); Prothrombin Time 12.9 SEC (10.0-13.1)
[2023-04-08] MEDS: Heparin Sodium,Porcine/1/2NS 25,000 UNIT/250 ML IV.SOLN 10.8 UNIT IVCONT (00:46)
[2023-04-08] MEDS: Heparin Sodium,Porcine 5,000 UNIT/ML VIAL 6200 UNIT IVPUSH ×2 (00:56→21:22)
[2023-04-08] MEDS: 0.9 % Sodium Chloride Flush 3 ML SYRINGE IVFLUSH ×4 (01:05→23:53)
--- NOTE | 2023-04-08 02:28 | PC.NURSE ---
Pt output 1,000 mL of clear, yellow urine. Pt is A&Ox4, GCS 15, with cool, dry skin. Pt is currently on 5LPM O2 via oximask, satting at 99%.
--- NOTE | 2023-04-08 07:00 | CA_ITS ---
Transthoracic Echocardiogram Patient (Last, First, Middle): Divya Nails D Gender: Male Date of : 1955 Age: 68 Procedure Date: 04/08/2023 Procedure Type: Transthoracic Echocardiogram Location: ER Height: 177.8 cm Weight: 77.11 kg BSA: 1.95 m2 Heart Rate: 66 bpm BP: 143 / 67 mmHg Bad Work Gatherer: SB Referring MD: John Greene MD Symptoms: CHF Study Quality: Adequate w contrast ECG Rhythm: Sinus Conclusions: - The left ventricular systolic function is moderately decreased. The visually estimated ejection fraction is between 30-35%. - The apical inferior, apical septum, mid inferoseptal, and mid anteroseptal segments are akinetic. - No obvious valvular pathology seen on this study. Findings Procedure Information Contrast agent, definity, is being given per protocol without apparent complications. Left Ventricle Normal left ventricular cavity size. There is normal left ventricular wall thickness. The left ventricular systolic function is moderately decreased. The visually estimated ejection fraction is between 30-35%. There is evidence of regional wall motion abnormalities. Diastolic function is normal for age. Focal hypertrophy of basal septum. Wall Motion Rest Echo Findings The apical inferior, apical septum, mid inferoseptal, and mid anteroseptal segments are akinetic. Right Ventricle Normal right ventricular cavity size. There is mild to moderately decreased right ventricular systolic function. Aortic Valve There is a normal trileaflet aortic valve. There is mild calcification of the aortic valve. There is no aortic valve stenosis. There is no aortic valve regurgitation. Mitral Valve There is mild anterior and posterior mitral leaflet thickening. There is trace mitral valve regurgitation. There is no mitral valve stenosis. Pulmonic Valve The pulmonic valve is likely normal. Tricuspid Valve Normal tricuspid valve structure. There is trace tricuspid valve regurgitation. There is no evidence of pulmonary hypertension. Great Vessels The asc aorta is normal in size. Venous The inferior vena cava is normal in size and collapses greater than 50% with inspiration. Pericardium/Pleural There is no evidence of pericardial effusion. Prior Study Comparison Changes noted compared to prior study dated: 03/25/2015. Decrease in LVEF; wall motion abnormalities present. Recommendations, Care & Conclusions No obvious valvular pathology seen on this study. Measurements 2D Linear Measurements IVSd: 0.69 0.6-0.9/0.6-1.0 cm LVIDd: 5.41 3.9-5.3/4.2-5.9 cm LVIDd Index: 2.77 2.4-3.2/2.2-3.1 cm/m2 LVIDs: 3.98 2.0-3.6 cm LVPWd: 0.75 0.7-1.1 cm LA Diam: 3.50 2.7-3.8/3.0-4.0 cm LAIDs Index: 1.79 1.5-2.3 cm/m2 LV Mass: 168.72 67-162/88-224 g LV Mass Index: 86.53 43-95/49-115 g/m2 LVOT Diam: 2.40 3.0+(-)1.3 cm 2D Systolic Function EF 4C: 45.40 >55% EF 2C: 57.90 >55% Mitral Valve MV VTI: 0.23 MV Pk Niko: 0.85 MV Mn Niko: 0.53 MV Pk Grad: 3.00 MV Mn Grad: 1.00 MV Pk E: 0.75 MV PK A: 0.59 MV Decel Time: 179.00 E/A: 1.30 E'Lateral: 8.49 E'Medial: 6.64 E/E' Med: 11.20 E/E' Lat: 8.80 PHT: 52.00 MVA PHT: 4.23 MVA Continuity: 3.75 Decel [place]: 4.18 Aortic Valve AoV Pk Niko: 1.01 AoV Pk Grad: 4.00 DON: 3.66 LVOT LVOT Pk Niko: 0.82 LVOT Mn Niko: 0.58 LVOT VTI: 0.19 LVOT Pk Grad: 3.00 LVOT Mn Grad: 1.00 LVOT Diam: 2.40 LVOT Area: 4.52 Diastolic Function MV Pk E: 0.75 MV Pk A: 0.59 E/A: 1.30 E'Medial: 6.64 E/E' Med: 11.20 E' Laterial: 8.49 E/E' Lat: 8.80 Right Ventricle TAPSE (mm): 14.10 TVS' Niko: 8.05 Tricuspid Valve RA Press: 3.00 Great Vessels Aorta Sinus of Valsalva: 3.10 2.0-3.5 cm Ao Asc: 3.00 2.1-3.4 cm Pulmonary Valve PV Pk Niko: 1.55 PV Min Niko: 0.88 Peak PV Grad: 10.00 PV Mn Grad: 4.00 Updated in Other Vendor System with Status of Final Kenny Clark MD electronically signed on 04/08/2023 3:37:04 PM with status of Final
[2023-04-08 07:08] LABS: PTT Heparin Drip 92.9 SEC (53-77.9)
[2023-04-08 07:14] LABS: Alanine Aminotransferase 45 U/L (0-40); Albumin Level 3.6 g/dL (3.5-5.0); Alkaline Phosphatase 93 U/L (39-117); Anion Gap 15 (12-20); Aspartate Amino Transferase 30 U/L (5-37); Bilirubin Total 0.6 mg/dL (0.0-1.0); Blood Urea Nitrogen 26 mg/dL (9-16); Calcium 9.7 mg/dL (8.4-10.2); Carbon Dioxide 30 mmol/L (22-29); Chloride 99 mmol/L (96-108); Creatinine Clr Calc Pharmacy 75.7; Estimated Glomerular Filt Rate > 60; Glucose Random 105 mg/dL (60-115); Potassium 3.8 mmol/L (3.3-5.1); Sodium 140 mmol/L (135-145); Total Protein 6.6 g/dL (6.5-8.0)
--- NOTE | 2023-04-08 07:32 | PC.NURSE ---
Alert and oriented. reports 7/10 chronic lower back pain. titrated down to 4 liters oxy mask- sating 100%. Sob sob or chest pain. Assisted to bedside commode.
[2023-04-08 07:45] LABS: Glucose, Whole Blood 146 mg/dL (60-115)
--- NOTE | 2023-04-08 07:57 | PC.NURSE ---
Heparin drip adjusted per order.
--- NOTE | 2023-04-08 08:00 | MHC.EDTECH ---
Patient AM care done ,bed change and reposition .
[2023-04-08 08:06] LABS: Troponin-I High Sensitivity 274.8 ng/L (<3.5-35.0)
[2023-04-08] MEDS: Insulin Glargine,Hum.rec.anlog 100 UNIT/ML 10 ML VIAL 23 UNIT SUBCUT (09:02)
[2023-04-08] MEDS: amLODIPine Besylate 5 MG TABLET PO (09:03)
[2023-04-08] MEDS: Metoprolol Tartrate 100 MG TABLET PO ×2 (09:03→21:28)
[2023-04-08] MEDS: Ezetimibe 10 MG TABLET PO (09:03)
[2023-04-08] MEDS: Furosemide 40 MG/4 ML VIAL IVPUSH (09:03)
[2023-04-08] MEDS: Aspirin 81 MG TAB.CHEW PO (09:03)
[2023-04-08] MEDS: hydroCHLOROthiazide 25 MG TABLET PO (09:03)
--- NOTE | 2023-04-08 09:53 | PC.NURSE ---
Report given to accepting unit
--- NOTE | 2023-04-08 10:31 | PM.CNCAR ---
History of Present Illness History of Present Illness Date of Service: 04/08/23 Chief complaint: Acute CHF Narrative: This is a cardiology consultation regarding chest pain. When I questioned him, he states that he had discomfort in the substernal area that lasted several hours yesterday. Start around 14:00 or so. According the H and P, he had describes rather epigastric type pain that radiate up to the chest along with lightheadedness. Improved after getting nitro. His white cell count is elevated but several checks in the last few months have shown slightly high WBC count. Uncertain etiology. Otherwise, patient also has history of GI bleed. But GI note, he had acute upper GI bleed in January and at that time EGD had shown multiple gastric ulcers. He seems to be on Prilosec. Review of Systems Review of Systems: Yes all other systems are reviewed and are negative Constitutional: Constitutional: Reports as per HPI and Reports no additional constitutional complaints Eyes: Eyes: Reports as per HPI and Denies no additional eye complaints ENT: Denies system reviewed and no additional complaints, except as documented and Reports as per HPI Cardiovascular: Cardiovascular: Reports as per HPI, Reports no additional cardiovascular complaints, Denies acrocyanosis, Denies cool extremities, Reports chest pain, Denies leg edema, Denies lightheadedness, Denies palpitations and Denies dyspnea Respiratory: Respiratory: Reports as per HPI, Denies no additional respiratory complaints and Denies dyspnea Gastrointestinal: Gastrointestinal: Reports as per HPI and Denies no additional gastrointestinal complaints Genitourinary: Genitourinary: Reports no additional male genitourinary complaints and Reports as per HPI Musculoskeletal: Musculoskeletal: Reports no additional musculoskeletal complaints and Reports as per HPI Integumentary/Breasts: Skin/Breast: Reports system reviewed and no additional complaints, except as docu Neurologic: Reports system reviewed and no additional complaints, except as documented and Reports as per HPI Psychiatric: Psychiatric: Reports no additional psychiatric complaints and Reports as per HPI Endocrine: Endocrine: Reports no additional endocrine complaints, Reports as per HPI and Denies palpitations Hematologic/Lymphatic: Hematologic/Lymphatic: Reports no additional hematologic/lymphatic complaints and Reports as per HPI Allergic/Immunologic: Allergic/Immunologic: Reports no additional allergic/immunologic complaints and Reports as per HPI ON LICENSE OF [facility] Past Medical History Medical History Anxiety and depression Coronary artery disease Diarrhea GERD (gastroesophageal reflux disease) Humeral fracture Hypercholesterolemia Hypertension Leukocytosis Obesity (BMI 30-39.9) Screening for prostate cancer Type 2 diabetes mellitus with hyperglycemia Vitamin D deficiency Family History Family History Father Lung cancer Mother Diabetes Hypertension Surgical History Surgical History History of cholecystectomy History of colonoscopy History of coronary artery bypass graft History of endoscopic gastrointestinal surgery History of repair of rotator cuff History of tonsillectomy History of umbilical hernia repair Social History Social History Household Members: Family Housing: House Do you presently have visiting nurse or other home services: No Alcohol intake: never Patient Tobacco Use Status: Never used Tobacco Smoked in Last 30 Days: No e-Cigarette/Vaping Use: Never Used Second Hand Smoke Exposure: No Use of substances other than those prescribed or required for medical reasons: No Advance Directives: Yes Advance Directives on File: Yes Advance Directives Date on File: 03/07/22 service: No Current occupational status: retired Cognitive needs: No Hearing needs: No Vision needs: Yes (glasses) Meds Allergies Allergy/AdvReac Type Severity Reaction Status Date / Time olmesartan Allergy Unknown Diarrhea Verified 03/28/23 14:36 Active Medications: Current Medications Acetaminophen (Acetaminophen 325 Mg Tablet) 650 mg PO Q6H PRN PRN Reason: Pain, Mild (Pain Scale 1-3) Amlodipine Besylate (Amlodipine Besylate 5 Mg Tablet) 5 mg PO DAILY [facility]; Protocol Last Admin: 04/08/23 09:03 Dose: 5 mg Aspirin (Aspirin 81 Mg Tab.Chew) 81 mg PO DAILY SWETHA Last Admin: 04/08/23 09:03 Dose: 81 mg Atorvastatin Calcium (Atorvastatin Calcium 80 Mg Tablet) 80 mg PO BEDTIME [facility] Cholestyramine Resin (Cholestyramine (With Sugar) 4 Gm Powd.Pack) 4 gm PO BID PRN PRN Reason: Diarrhea Dextrose (Dextrose 50 % 25 Gm/50 Ml Syringe) 25 gm IVPUSH Q15M PRN; Protocol PRN Reason: per Hypoglycemia Standing Ord. Docusate Sodium (Docusate Sodium 100 Mg Capsule) 100 mg PO DAILY PRN PRN Reason: Constipation Ezetimibe (Ezetimibe 10 Mg Tablet) 10 mg PO DAILY [facility] Last Admin: 04/08/23 09:03 Dose: 10 mg Furosemide (Furosemide 40 Mg/4 Ml Vial) 40 mg IVPUSH DAILY [facility]; Protocol Last Admin: 04/08/23 09:03 Dose: 40 mg Glucose (Glucose Gel 15 Gm Gel..Gram.) 15 gm PO Q15M PRN; Protocol PRN Reason: per Hypoglycemia Standing Ord. Heparin Sodium (Porcine) (Heparin Sodium,Porcine 5,000 Unit/Ml Vial) 3,100 unit 40 unit/kg (3100 unit) IVPUSH PROTOCOL BOLUS PRN; Protocol PRN Reason: 40 unit/kg - Heparin Protocol Heparin Sodium (Porcine) (Heparin Sodium,Porcine 5,000 Unit/Ml Vial) 6,200 unit 80 unit/kg (6200 unit) IVPUSH PROTOCOL BOLUS PRN; Protocol PRN Reason: 80 unit/kg - Heparin Protocol Hydrochlorothiazide (Hydrochlorothiazide 25 Mg Tablet) 25 mg PO DAILY [facility]; Protocol Last Admin: 04/08/23 09:03 Dose: 25 mg Heparin Sodium/Sodium Chloride (Heparin Sodium,Porcine/1/2ns) 25,000 unit in 250 mls @ 0 mls/hr IVCONT .Q0M [facility]; Protocol Last Titration: 04/08/23 07:34 Dose: 12 units/kg/hr, 9.25 mls/hr Insulin Glargine (Insulin Glargine,Hum.Rec.Anlog 100 Unit/Ml 10 Ml Vial) 23 unit SUBCUT DAILY [facility] Last Admin: 04/08/23 09:02 Dose: 23 unit Insulin Human Lispro (Insulin Lispro 100 Unit/Ml 3 Ml Vial) 0 unit SUBCUT QIDACHS [facility]; Protocol Last Admin: 04/08/23 07:39 Dose: Not Given Metoprolol Tartrate (Metoprolol Tartrate 100 Mg Tablet) 100 mg PO BID [facility]; Protocol Last Admin: 04/08/23 09:03 Dose: 100 mg Omeprazole (Omeprazole 40 Mg Capsule.Dr) 40 mg PO DAILY@0630 [facility] Ondansetron HCl (Ondansetron Hcl 4 Mg/2 Ml Vial) 4 mg IVPUSH Q8H PRN PRN Reason: Nausea and Vomiting Pharmacy Consult (Consult Rx Perform Med Rec) 1 each MISCELLANE ONCE PRN PRN Reason: Consult order Polyethylene Glycol (Polyethylene Glycol 3350 17 Gm Powd.Pack) 17 gm PO DAILY PRN PRN Reason: Constipation Sodium Chloride (0.9 % Sodium Chloride Flush 3 Ml Syringe) 3 ml IVFLUSH QSHIFT [facility] Last Admin: 04/08/23 09:04 Dose: 3 ml Valsartan (Valsartan 80 Mg Tablet) 80 mg PO DAILY [facility] Home Medications Medication Instructions Recorded Confirmed Last Taken Type insulin glargine 100 unit/mL (3 23 unit subcut DAILY 08/30/22 04/07/23 04/07/23 09:00 History mL) subcutaneous pen (Basaglar KwikPen U-100 Insulin) cholestyramine-aspartame 4 gram 4 g PO BID PRN Diarrhea 01/30/23 04/07/23 Unknown History oral powder (Prevalite) dulaglutide 1.5 mg/0.5 mL 1.5 mg subcut HOUSER 01/30/23 04/07/23 01/27/23 History subcutaneous pen injector olmesartan 20 mg tablet 20 mg PO DAILY 04/07/23 04/08/23 Unknown History omeprazole 40 mg capsule,delayed 40 mg PO DAILY@0630 04/07/23 04/07/23 04/07/23 09:00 History release polyethylene glycol 3350 17 17 g PO DAILY PRN Constipation 04/07/23 04/07/23 Unknown History gram/dose oral powder (Miralax) rosuvastatin 40 mg tablet 40 mg PO BEDTIME 04/07/23 04/07/23 04/06/23 History Physical Exam Vital Signs: Vital Signs: Last Vital Signs Temp 98.9 F 04/08/23 05:04 Pulse 81 04/08/23 07:31 Resp 18 04/08/23 07:31 BP 156/77 H 04/08/23 07:31 Pulse Ox 100 04/08/23 07:31 O2 Del Method Oxymask 04/08/23 07:31 O2 Flow Rate 4 04/08/23 07:31 BMI result Body Mass Index 24.4 Const: General: comfortable and no acute distress Orientation/consciousness: patient oriented x3 HEENT: Other: Unremarkable Head: Yes normal to inspection Neck: Neck: Yes normal visual inspection Chest: Chest palpation & inspection: normal inspection of the chest Resp: Auscultation: clear to auscultation bilaterally Cardio: Palpation: normal PMI Heart sounds: S1 normal heart sound present, S2 normal heart sound present, no gallops, no murmurs and no rubs GI: Palpation (GI): Soft to palpation Back/Spine/Pelvis: Other: unremarkable Skin: General skin exam: no rashes or lesions noted Neuro: General: patient oriented x3 Extrem: General: Yes normal to inspection Psych: Mental Status: mental status grossly normal Objective Labs and Meds 04/07/23 16:45 04/08/23 06:43 Lab results: Laboratory Results - last 24 hr 04/07/23 04/07/23 04/07/23 16:45 16:45 16:45 WBC 21.1 H RBC 4.92 Hgb 13.2 L Hct 41.4 L MCV 84.1 MCH 26.8 L MCHC 31.9 RDW 13.7 Plt Count 274 MPV 10.1 Immature Gran % (Auto) 0.6 H Neut % (Auto) 80.5 H Lymph % (Auto) 10.5 L Howard % (Auto) 5.7 Eos % (Auto) 2.2 Baso % (Auto) 0.5 Lymph # (Auto) 2.2 Howard # (Auto) 1.2 Eos # (Auto) 0.5 H Baso # (Auto) 0.1 Abs Immat Gran (auto) 0.13 H Absolute Neuts (auto) 17.0 H Absolute Nucleated RBC 0.000 Nucleated RBC % (auto) 0.0 PT 12.5 INR 1.1 APTT aPTT Heparin Protocol Sodium 140 Potassium 3.8 Chloride 100 Carbon Dioxide 29 Anion Gap 15 BUN 24 H Creatinine 1.00 Estim Creat Clear Calc 71.9 Estimated GFR > 60 POC Glucose Random Glucose 157 H Lactic Acid Calcium 10.1 Magnesium 1.7 Total Bilirubin 0.5 AST 47 H ALT 67 H Alkaline Phosphatase 99 Troponin I High Sens B-Natriuretic Peptide Total Protein 7.7 Albumin 4.3 Urine Color Urine Appearance Urine pH Ur Specific Smith Urine Protein Urine Glucose (UA) Urine Ketones Urine Blood Urine Nitrite Ur Leukocyte Esterase Stool Occult Blood Urine Opiates Screen Urine Fentanyl Screen Ur Barbiturates Screen Ur Phencyclidine Scrn Ur Amphetamines Screen U Benzodiazepines Scrn Urine Cocaine Screen U Marijuana (THC) Screen COVID-19 ([facility]) COVID-19 Clin Com Blood Type Antibody Screen 04/07/23 04/07/23 04/07/23 16:45 17:15 17:19 WBC RBC Hgb Hct MCV MCH MCHC RDW Plt Count MPV Immature Gran % (Auto) Neut % (Auto) Lymph % (Auto) Howard % (Auto) Eos % (Auto) Baso % (Auto) Lymph # (Auto) Howard # (Auto) Eos # (Auto) Baso # (Auto) Abs Immat Gran (auto) Absolute Neuts (auto) Absolute Nucleated RBC Nucleated RBC % (auto) PT INR APTT 32.9 aPTT Heparin Protocol Sodium Potassium Chloride Carbon Dioxide Anion Gap BUN Creatinine Estim Creat Clear Calc Estimated GFR POC Glucose Random Glucose Lactic Acid 0.8 Calcium Magnesium Total Bilirubin AST ALT Alkaline Phosphatase Troponin I High Sens < 2.7 B-Natriuretic Peptide Total Protein Albumin Urine Color Urine Appearance Urine pH Ur Specific Smith Urine Protein Urine Glucose (UA) Urine Ketones Urine Blood Urine Nitrite Ur Leukocyte Esterase Stool Occult Blood Urine Opiates Screen Urine Fentanyl Screen Ur Barbiturates Screen Ur Phencyclidine Scrn Ur Amphetamines Screen U Benzodiazepines Scrn Urine Cocaine Screen U Marijuana (THC) Screen COVID-19 ([facility]) COVID-19 Clin Com Blood Type Antibody Screen 04/07/23 04/07/23 04/07/23 17:35 17:35 19:32 WBC RBC Hgb Hct MCV MCH MCHC RDW Plt Count MPV Immature Gran % (Auto) Neut % (Auto) Lymph % (Auto) Howard % (Auto) Eos % (Auto) Baso % (Auto) Lymph # (Auto) Howard # (Auto) Eos # (Auto) Baso # (Auto) Abs Immat Gran (auto) Absolute Neuts (auto) Absolute Nucleated RBC Nucleated RBC % (auto) PT INR APTT aPTT Heparin Protocol Sodium Potassium Chloride Carbon Dioxide Anion Gap BUN Creatinine Estim Creat Clear Calc Estimated GFR POC Glucose Random Glucose Lactic Acid Calcium Magnesium Total Bilirubin AST ALT Alkaline Phosphatase Troponin I High Sens B-Natriuretic Peptide Total Protein Albumin Urine Color Urine Appearance Urine pH Ur Specific Smith Urine Protein Urine Glucose (UA) Urine Ketones Urine Blood Urine Nitrite Ur Leukocyte Esterase Stool Occult Blood NEGATIVE Urine Opiates Screen Urine Fentanyl Screen Ur Barbiturates Screen Ur Phencyclidine Scrn Ur Amphetamines Screen U Benzodiazepines Scrn Urine Cocaine Screen U Marijuana (THC) Screen COVID-19 ([facility]) Negative COVID-19 Clin Com See Note Blood Type A Positive Antibody Screen NEGATIVE 04/07/23 04/07/2304/07/23 20:11 20:16 20:59 WBC RBC Hgb Hct MCV MCH MCHC RDW Plt Count MPV Immature Gran % (Auto) Neut % (Auto) Lymph % (Auto) Howard % (Auto) Eos % (Auto) Baso % (Auto) Lymph # (Auto) Howard # (Auto) Eos # (Auto) Baso # (Auto) Abs Immat Gran (auto) Absolute Neuts (auto) Absolute Nucleated RBC Nucleated RBC % (auto) PT INR APTT aPTT Heparin Protocol Sodium Potassium Chloride Carbon Dioxide Anion Gap BUN Creatinine Estim Creat Clear Calc Estimated GFR POC Glucose Random Glucose Lactic Acid Calcium Magnesium Total Bilirubin AST ALT Alkaline Phosphatase Troponin I High Sens 84.2 H D B-Natriuretic Peptide Total Protein Albumin Urine Color Yellow Urine Appearance Clear Urine pH 5.5 Ur Specific Smith >= 1.030 H Urine Protein Negative Urine Glucose (UA) Negative Urine Ketones Negative Urine Blood Negative Urine Nitrite Negative Ur Leukocyte Esterase Negative Stool Occult Blood Urine Opiates Screen POSITIVE H Urine Fentanyl Screen Not Detected Ur Barbiturates Screen Not Detected Ur Phencyclidine Scrn Not Detected Ur Amphetamines Screen Not Detected U Benzodiazepines Scrn Not Detected Urine Cocaine Screen Not Detected U Marijuana (THC) Screen Not Detected COVID-19 ([facility]) COVID-19 Clin Com Blood Type Antibody Screen 04/07/23 04/07/23 04/07/23 22:02 23:23 23:23 WBC RBC Hgb Hct MCV MCH MCHC RDW Plt Count MPV Immature Gran % (Auto) Neut % (Auto) Lymph % (Auto) Howard % (Auto) Eos % (Auto) Baso % (Auto) Lymph # (Auto) Howard # (Auto) Eos # (Auto) Baso # (Auto) Abs Immat Gran (auto) Absolute Neuts (auto) Absolute Nucleated RBC Nucleated RBC % (auto) PT 12.9 INR 1.1 APTT aPTT Heparin Protocol 31.2 L Sodium Potassium Chloride Carbon Dioxide Anion Gap BUN Creatinine Estim Creat Clear Calc Estimated GFR POC Glucose Random Glucose Lactic Acid Calcium Magnesium Total Bilirubin AST ALT Alkaline Phosphatase Troponin I High Sens 165.8 H* D B-Natriuretic Peptide 194 H Total Protein Albumin Urine Color Urine Appearance Urine pH Ur Specific Smith Urine Protein Urine Glucose (UA) Urine Ketones Urine Blood Urine Nitrite Ur Leukocyte Esterase Stool Occult Blood Urine Opiates Screen Urine Fentanyl Screen Ur Barbiturates Screen Ur Phencyclidine Scrn Ur Amphetamines Screen U Benzodiazepines Scrn Urine Cocaine Screen U Marijuana (THC) Screen COVID-19 ([facility]) COVID-19 [employer] Com Blood Type Antibody Screen 04/08/23 04/08/23 04/08/23 06:43 06:43 07:09 WBC RBC Hgb Hct MCV MCH MCHC RDW Plt Count MPV Immature Gran % (Auto) Neut % (Auto) Lymph % (Auto) Howard % (Auto) Eos % (Auto) Baso % (Auto) Lymph # (Auto) Howard # (Auto) Eos # (Auto) Baso # (Auto) Abs Immat Gran (auto) Absolute Neuts (auto) Absolute Nucleated RBC Nucleated RBC % (auto) PT INR APTT aPTT Heparin Protocol 92.9 H D Sodium 140 Potassium 3.8 Chloride 99 Carbon Dioxide 30 H Anion Gap 15 BUN 26 H Creatinine 0.95 Estim Creat Clear Calc 75.7 Estimated GFR > 60 POC Glucose Random Glucose 105 Lactic Acid Calcium 9.7 Magnesium Total Bilirubin 0.6 AST 30 ALT 45 H Alkaline Phosphatase 93 Troponin I High Sens 274.8 H* D B-Natriuretic Peptide Total Protein 6.6 Albumin 3.6 Urine Color Urine Appearance Urine pH Ur Specific Smith Urine Protein Urine Glucose (UA) Urine Ketones Urine Blood Urine Nitrite Ur Leukocyte Esterase Stool Occult Blood Urine Opiates Screen Urine Fentanyl Screen Ur Barbiturates Screen Ur Phencyclidine Scrn Ur Amphetamines Screen U Benzodiazepines Scrn Urine Cocaine Screen U Marijuana (THC) Screen COVID-19 ([facility]) COVID-19 Clin Com Blood Type Antibody Screen 04/08/23 07:38 WBC RBC Hgb Hct MCV MCH MCHC RDW Plt Count MPV Immature Gran % (Auto) Neut % (Auto) Lymph % (Auto) Howard % (Auto) Eos % (Auto) Baso % (Auto) Lymph # (Auto) Howard # (Auto) Eos # (Auto) Baso # (Auto) Abs Immat Gran (auto) Absolute Neuts (auto) Absolute Nucleated RBC Nucleated RBC % (auto) PT INR APTT aPTT Heparin Protocol Sodium Potassium Chloride Carbon Dioxide Anion Gap BUN Creatinine Estim Creat Clear Calc Estimated GFR POC Glucose 146 H Random Glucose Lactic Acid Calcium Magnesium Total Bilirubin AST ALT Alkaline Phosphatase Troponin I High Sens B-Natriuretic Peptide Total Protein Albumin Urine Color Urine Appearance Urine pH Ur Specific Smith Urine Protein Urine Glucose (UA) Urine Ketones Urine Blood Urine Nitrite Ur Leukocyte Esterase Stool Occult Blood Urine Opiates Screen Urine Fentanyl Screen Ur Barbiturates Screen Ur Phencyclidine Scrn Ur Amphetamines Screen U Benzodiazepines Scrn Urine Cocaine Screen U Marijuana (THC) Screen COVID-19 ([facility]) COVID-19 Clin Com Blood Type Antibody Screen ECG Interpretation: EKG with sinus rhythm at 68/Min; no significant ST-T changes and otherwise unremarkable. Imaging Radiologist's impression: Impressions Abdomen/Pelvis CT 04/07/23 18:23 IMPRESSION: 1. Diverticulosis without acute inflammatory changes. No obstruction. 2. Hazy groundglass opacities at both bases nonspecific consistent with small vessel airway disease.. Fleischner guidelines were followed. Chest X-Ray 04/07/23 18:24 IMPRESSION: CHF with interstitial and early alveolar pulmonary edema as above. Assessment and Plan (1) NSTEMI (non-ST elevated myocardial infarction): Status: Acute (2) Gastric ulcer: Status: Acute Plan History suggestive of probably cardiac chest pain. Baseline EKG is unremarkable. Troponin levels are 84 followed by 165 followed by 275. Overall, NSTEMI. Will need to clarify with GI regarding antiplatelet therapy as he has had gastric ulcers in January. If they clear him for the procedure, then can transfer to [facility] for cardiac catheterization. In the interim, he is on IV heparin, aspirin, beta-blockers and statins. Discussed with hospitalist. Time Spent With Patient Time: Total time managing care of this patient today ____ minutes. Procedures Date of Service Date of Service: 04/08/23
[2023-04-08 11:26] LABS: PTT Heparin Drip 63.7 SEC (53-77.9)
[2023-04-08 11:35] LABS: Glucose, Whole Blood 117 mg/dL (60-115)
--- NOTE | 2023-04-08 11:42 | P.DS_ITS ---
DS: Providers Provider Date of Service: 04/08/23 Date of admission: 04/07/23 23:45 Date of discharge: 04/08/23 Primary care physician: Luke Albright MD Attending physician on admission: John Greene Consults: 04/07/23 23:45 Consult to Cardiology Routine Consulting Provider: [facility] Reason for consultation: CHF, elevated trop Has provider been notified: No Attending physician on discharge: Dirk Van Discharging clinician: Marge Prieto DS: Transfer Hospital Acceptance Reason for Transfer: NSTEMI Name of Facility: [facility] DS: Diagnosis Discharge Diagnosis (1) NSTEMI (non-ST elevated myocardial infarction): Status: Acute (2) Gastric ulcer: Status: Acute DS: Summary Hospital Course Hospital Course: HPI on admission by Dr. Greeen 04/07: Chief Complaint: epigastric/chest pain ?68-year-old male with past medical history of CAD status post CABG in 1999, BPH, generalized anxiety disorder, history of gastroparesis, diabetes, HLD, HTN who presents the hospital with complaints of? chest as well as epigastric pain.? Pain is pressure-like, radiating up his chest, associated with lightheadedness, occurred while at rest about 4 hours prior to presentation to the ED.? has nausea, no vomiting but says that he was spitting up stuff.? Improved after receiving nitroglycerin in the ED.? feeling shortness of breath, no cough or sputum production, no palpitations, no abdominal pain, no diarrhea constipation, no urinary symptoms and no lower extremity edema.? ?he does report orthopnea and PND as well On arrival to the ED patient noted to be hypertensive otherwise stable Labs are significant for WBC count of 21, troponin that? initially was less than 2.7 increased to 84, and there troponin of 165, BNP of 194, ?chest x-ray shows CHF with interstitial and early alveolar pulmonary edema ?abdomen pelvic CT shows diverticulosis without diverticulitis, and hazy ground opacities of both lungs? nonspecific ?discussed with Cardiology, patient will be started on heparin drip, will be admitted for further management Hospital course: Pt admitted to telemetry on heparin gtt per protocol for NSTEMI and found to have acute CHF exacerbation. Trops 84.2 --> 165.8 --> 274.8. Chest pain resolved. Asa 81 mg initiated, and atorvastatin 80mg (on rosuvastatin 40mg at home, not on formulary). Continues on metoprolol 100mg BID. Patient hypertensive to 182/90 on arrival with gradual improvement in blood pressures to 120/63. He remained on 4L O2 via oxymask throughout admission for comfort, no hypoxia noted. He was evaluated by cardiology recommending dual antiplatelet therapy. However, pt had admission two months ago with EGD showing multiple gastric ulcers on 02/01, and GI recommended repeat EGD in 2 months. Discussed with gastroenterology recommending PPI BID and sucralfate AC TID and HS. Can continue if no evidence of bleeding. Currently on omeprazole 40mg daily, will change to BID and add carafate as advised. Continue on d/c if plan for DAPT. Cardiology recommends transfer to [facility] for cardiac catheterization. Continue metoprolol 100 mg b.i.d., rosuvastatin 40 mg, aspirin 81 mg daily, IV heparin per protocol. #? acute NSTEMI -? typical chest pain, with elevated troponin positive delta - EKG shows? nonspecific ST T wave changes -? spoke to Cardiology, patient started on heparin ggt -? echocardiogram results pending -? Continue asa, bb, statin #? acute CHF exacerbation- clinically improving -? BNP elevated, 194. SOB resolved, orthopnea persists -? evidence of volume overload on imaging -? Treated with IV lasix, cardiac diet #? leukocytosis- chronic -? no evidence of acute infection -? Outpt follow up with hematology -? follow CBC #History gastric ulcers -EGD 02/01 with multiple gastric ulcers -Due for repeat EGD once stable -H/H stable -Per GI, DAPT ok with PPI BID and carafate QIDACHS #? hypertension -? stable -? continue home antihypertensives #? diabetes -? continue home insulin, hold oral antihyperglycemics -? will add low-dose sliding scale insulin -? diabetic diet #? hyperlipidemia -? continue statin Time Spent with Patient Time attestation: Total time managing care of this patient today ____ minutes. Discharge coordination time: Greater than 30 minutes Quality: Safe Use of Opioids Does Pt have an Active Cancer Diagnosis on the Problem List?: No Quality: Stroke Does the patient have a stroke diagnosis?: No Physical Exam Vital Signs: Vital Signs: Last Vital Signs Temp 97.9 F 04/08/23 11:27 Pulse 65 04/08/23 11:27 Resp 20 04/08/23 11:27 BP 120/63 04/08/23 11:27 Pulse Ox 100 04/08/23 11:27 O2 Del Method Oxymask 04/08/23 11:27 O2 Flow Rate 4 04/08/23 11:27 BMI result Body Mass Index 24.4 Constitutional - Awake and Alert, No apparent distress Eyes - PERRLA, EOMI Cardiovascular - S1S2, RRR, No edema Respiratory - Normal lung expansion, Normal respiratory effort, No respiratory distress, CTA bilaterally Gastrointestinal - NT / ND; +BS; No rebound or guarding Extremities - no calf tenderness bilaterally, no swelling Skin - Warm/Dry Neurological - Alert & oriented x3, CN II-XII in tact, 5/ strength BUE and BLE Psychological - Appropriate affect DS: Data Data Completed and Pending Completed studies during hospitalization [Text1]: Procedures Drainage of Stomach, Pylorus, Via Natural or Artificial Opening Endoscopic, Diagnostic (01/30/23) Excision of Stomach, Pylorus, Via Natural or Artificial Opening Endoscopic, Diagnostic (01/30/23) Labs on day of discharge: Laboratory Results - last 24 hr 04/07/23 04/07/23 04/07/23 16:45 16:45 16:45 WBC 21.1 H RBC 4.92 Hgb 13.2 L Hct 41.4 L MCV 84.1 MCH 26.8 L MCHC 31.9 RDW 13.7 Plt Count 274 MPV 10.1 Immature Gran % (Auto) 0.6 H Neut % (Auto) 80.5 H Lymph % (Auto) 10.5 L [place] % (Auto) 5.7 Eos % (Auto) 2.2 Baso % (Auto) 0.5 Lymph # (Auto) 2.2 [place] # (Auto) 1.2 Eos # (Auto) 0.5 H Baso # (Auto) 0.1 Abs Immat Gran (auto) 0.13 H Absolute Neuts (auto) 17.0 H Absolute Nucleated RBC 0.000 Nucleated RBC % (auto) 0.0 PT 12.5 INR 1.1 APTT aPTT Heparin Protocol Sodium 140 Potassium 3.8 Chloride 100 Carbon Dioxide 29 Anion Gap 15 BUN 24 H Creatinine 1.00 Estim Creat Clear Calc 71.9 Estimated GFR > 60 POC Glucose Random Glucose 157 H Lactic Acid Calcium 10.1 Magnesium 1.7 Total Bilirubin 0.5 AST 47 H ALT 67 H Alkaline Phosphatase 99 Troponin I High Sens B-Natriuretic Peptide Total Protein 7.7 Albumin 4.3 Urine Color Urine Appearance Urine pH Ur Specific [place] Urine Protein Urine Glucose (UA) Urine Ketones Urine Blood Urine Nitrite Ur Leukocyte Esterase Stool Occult Blood Urine Opiates Screen Urine Fentanyl Screen Ur Barbiturates Screen Ur Phencyclidine Scrn Ur Amphetamines Screen U Benzodiazepines Scrn Urine Cocaine Screen U Marijuana (THC) Screen COVID-19 (ROSANNA) COVID-19 Dashride Com Blood Type Antibody Screen 04/07/23 04/07/23 04/07/23 16:45 17:15 17:19 WBC RBC Hgb Hct MCV MCH MCHC RDW Plt Count MPV Immature Gran % (Auto) Neut % (Auto) Lymph % (Auto) [place] % (Auto) Eos % (Auto) Baso % (Auto) Lymph # (Auto) [place] # (Auto) Eos # (Auto) Baso # (Auto) Abs Immat Gran (auto) Absolute Neuts (auto) Absolute Nucleated RBC Nucleated RBC % (auto) PT INR APTT 32.9 aPTT Heparin Protocol Sodium Potassium Chloride Carbon Dioxide Anion Gap BUN Creatinine Estim Creat Clear Calc Estimated GFR POC Glucose Random Glucose Lactic Acid 0.8 Calcium Magnesium Total Bilirubin AST ALT Alkaline Phosphatase Troponin I High Sens < 2.7 B-Natriuretic Peptide Total Protein Albumin Urine Color Urine Appearance Urine pH Ur Specific [place] Urine Protein Urine Glucose (UA) Urine Ketones Urine Blood Urine Nitrite Ur Leukocyte Esterase Stool Occult Blood Urine Opiates Screen Urine Fentanyl Screen Ur Barbiturates Screen Ur Phencyclidine Scrn Ur Amphetamines Screen U Benzodiazepines Scrn Urine Cocaine Screen U Marijuana (THC) Screen COVID-19 (ROSANNA) COVID-19 Dashride Com Blood Type Antibody Screen 04/07/23 04/07/23 04/07/23 17:35 17:35 19:32 WBC RBC Hgb Hct MCV MCH MCHC RDW Plt Count MPV Immature Gran % (Auto) Neut % (Auto) Lymph % (Auto) [place] % (Auto) Eos % (Auto) Baso % (Auto) Lymph # (Auto) [place] # (Auto) Eos # (Auto) Baso # (Auto) Abs Immat Gran (auto) Absolute Neuts (auto) Absolute Nucleated RBC Nucleated RBC % (auto) PT INR APTT aPTT Heparin Protocol Sodium Potassium Chloride Carbon Dioxide Anion Gap BUN Creatinine Estim Creat Clear Calc Estimated GFR POC Glucose Random Glucose Lactic Acid Calcium Magnesium Total Bilirubin AST ALT Alkaline Phosphatase Troponin I High Sens B-Natriuretic Peptide Total Protein Albumin Urine Color Urine Appearance Urine pH Ur Specific [place] Urine Protein Urine Glucose (UA) Urine Ketones Urine Blood Urine Nitrite Ur Leukocyte Esterase Stool Occult Blood NEGATIVE Urine Opiates Screen Urine Fentanyl Screen Ur Barbiturates Screen Ur Phencyclidine Scrn Ur Amphetamines Screen U Benzodiazepines Scrn Urine Cocaine Screen U Marijuana (THC) Screen COVID-19 (ROSANNA) Negative COVID-19 Clin Com See Note Blood Type A Positive Antibody Screen NEGATIVE 04/07/23 04/07/23 04/07/23 20:11 20:16 20:59 WBC RBC Hgb Hct MCV MCH MCHC RDW Plt Count MPV Immature Gran % (Auto) Neut % (Auto) Lymph % (Auto) [place] % (Auto) Eos % (Auto) Baso % (Auto) Lymph # (Auto) [place] # (Auto) Eos # (Auto) Baso # (Auto) Abs Immat Gran (auto) Absolute Neuts (auto) Absolute Nucleated RBC Nucleated RBC % (auto) PT INR APTT aPTT Heparin Protocol Sodium Potassium Chloride Carbon Dioxide Anion Gap BUN Creatinine Estim Creat Clear Calc Estimated GFR POC Glucose Random Glucose Lactic Acid Calcium Magnesium Total Bilirubin AST ALT Alkaline Phosphatase Troponin I High Sens 84.2 H D B-Natriuretic Peptide Total Protein Albumin Urine Color Yellow Urine Appearance Clear Urine pH 5.5 Ur Specific [place] >= 1.030 H Urine Protein Negative Urine Glucose (UA) Negative Urine Ketones Negative Urine Blood Negative Urine Nitrite Negative Ur Leukocyte Esterase Negative Stool Occult Blood Urine Opiates Screen POSITIVE H Urine Fentanyl Screen Not Detected Ur Barbiturates Screen Not Detected Ur Phencyclidine Scrn Not Detected Ur Amphetamines Screen Not Detected U Benzodiazepines Scrn Not Detected Urine Cocaine Screen Not Detected U Marijuana (THC) Screen Not Detected COVID-19 (ROSANNA) COVID-19 Dashride Com Blood Type Antibody Screen 04/07/23 04/07/23 04/07/23 22:02 23:23 23:23 WBC RBC Hgb Hct MCV MCH MCHC RDW Plt Count MPV Immature Gran % (Auto) Neut % (Auto) Lymph % (Auto) [place] % (Auto) Eos % (Auto) Baso % (Auto) Lymph # (Auto) [place] # (Auto) Eos # (Auto) Baso # (Auto) Abs Immat Gran (auto) Absolute Neuts (auto) Absolute Nucleated RBC Nucleated RBC % (auto) PT 12.9 INR 1.1 APTT aPTT Heparin Protocol 31.2 L Sodium Potassium Chloride Carbon Dioxide Anion Gap BUN Creatinine Estim Creat Clear Calc Estimated GFR POC Glucose Random Glucose Lactic Acid Calcium Magnesium Total Bilirubin AST ALT Alkaline Phosphatase Troponin I High Sens 165.8 H* D B-Natriuretic Peptide 194 H Total Protein Albumin Urine Color Urine Appearance Urine pH Ur Specific [place] Urine Protein Urine Glucose (UA) Urine Ketones Urine Blood Urine Nitrite Ur Leukocyte Esterase Stool Occult Blood Urine Opiates Screen Urine Fentanyl Screen Ur Barbiturates Screen Ur Phencyclidine Scrn Ur Amphetamines Screen U Benzodiazepines Scrn Urine Cocaine Screen U Marijuana (THC) Screen COVID-19 (ROSANNA) COVID-aaTag Com Blood Type Antibody Screen 04/08/23 04/08/23 04/08/23 06:43 06:43 07:09 WBC RBC Hgb Hct MCV MCH MCHC RDW Plt Count MPV Immature Gran % (Auto) Neut % (Auto) Lymph % (Auto) [place] % (Auto) Eos % (Auto) Baso % (Auto) Lymph # (Auto) [place] # (Auto) Eos # (Auto) Baso # (Auto) Abs Immat Gran (auto) Absolute Neuts (auto) Absolute Nucleated RBC Nucleated RBC % (auto) PT INR APTT aPTT Heparin Protocol 92.9 H D Sodium 140 Potassium 3.8 Chloride 99 Carbon Dioxide 30 H Anion Gap 15 BUN 26 H Creatinine 0.95 Estim Creat Clear Calc 75.7 Estimated GFR > 60 POC Glucose Random Glucose 105 Lactic Acid Calcium 9.7 Magnesium Total Bilirubin 0.6 AST 30 ALT 45 H Alkaline Phosphatase 93 Troponin I High Sens 274.8 H* D B-Natriuretic Peptide Total Protein 6.6 Albumin 3.6 Urine Color Urine Appearance Urine pH Ur Specific [place] Urine Protein Urine Glucose (UA) Urine Ketones Urine Blood Urine Nitrite Ur Leukocyte Esterase Stool Occult Blood Urine Opiates Screen Urine Fentanyl Screen Ur Barbiturates Screen Ur Phencyclidine Scrn Ur Amphetamines Screen U Benzodiazepines Scrn Urine Cocaine Screen U Marijuana (THC) Screen COVID-19 (ROSANNA) COVID-19 Dashride Com Blood Type Antibody Screen 04/08/23 04/08/23 04/08/23 07:38 11:03 11:28 WBC RBC Hgb Hct MCV MCH MCHC RDW Plt Count MPV Immature Gran % (Auto) Neut % (Auto) Lymph % (Auto) [place] % (Auto) Eos % (Auto) Baso % (Auto) Lymph # (Auto) [place] # (Auto) Eos # (Auto) Baso # (Auto) Abs Immat Gran (auto) Absolute Neuts (auto) Absolute Nucleated RBC Nucleated RBC % (auto) PT INR APTT aPTT Heparin Protocol 63.7 D Sodium Potassium Chloride Carbon Dioxide Anion Gap BUN Creatinine Estim Creat Clear Calc Estimated GFR POC Glucose 146 H 117 H Random Glucose Lactic Acid Calcium Magnesium Total Bilirubin AST ALT Alkaline Phosphatase Troponin I High Sens B-Natriuretic Peptide Total Protein Albumin Urine Color Urine Appearance Urine pH Ur Specific [place] Urine Protein Urine Glucose (UA) Urine Ketones Urine Blood Urine Nitrite Ur Leukocyte Esterase Stool Occult Blood Urine Opiates Screen Urine Fentanyl Screen Ur Barbiturates Screen Ur Phencyclidine Scrn Ur Amphetamines Screen U Benzodiazepines Scrn Urine Cocaine Screen U Marijuana (THC) Screen COVID-19 (ROSANNA) COVID-19 Clin Com Blood Type Antibody Screen Discharge Plan Discharge Anticipated Discharge Date/Time: 04/08/23 12:00 Patient Disposition: Xfer Acute Care Hospital Discharge Diagnosis: NSTEMI, CHF exacerbation Referrals: Po,Luke Hart MD [Primary Care Provider] - 1 Week Discharge Medications: New furosemide 10 mg/mL Solution 40 mg IVPUSH DAILY Qty: 40 0RF Protocol: Hold for SBP< HOLD for SBP < : 90 sucralfate 1 gram Tablet 1 g PO QIDACHS Qty: 30 0RF omeprazole 40 mg Capsule,Delayed Release(Dr/Ec) 40 mg PO BID@0630,1630 Qty: 1 0RF aspirin 81 mg Tablet,Chewable 81 mg PO DAILY Qty: 30 0RF heparin(porcine) in 0.45% NaCl 25,000 unit/250 mL Parenteral Solution 25,000 unit continuous IV infusion .Q0M Qty: 6000 0RF Continued (DME) pen needle, diabetic [1st Tier Unifine Pentips] 31 gauge x 3/16 needle See Rx Instructions .ROUTE .MEDSUPPLY Qty: 4 3RF Rx Instructions: As directed inject insulin 4 times a day hydrochlorothiazide 25 mg tablet 25 mg PO DAILY 90 Days Qty: 90 2RF metoprolol tartrate 100 mg tablet 100 mg PO BID Qty: 180 2RF amlodipine 5 mg tablet 5 mg PO DAILY Qty: 90 2RF (DME) blood-glucose meter [OneTouch Ultra2 Meter] [facility] See Rx Instructions .Route Qty: 1 0RF Rx Instructions: As directed (DME) OneTouch Ultra Test Strip See Rx Instructions .Route Qty: 100 3RF Rx Instructions: As directed (DME) lancets [OneTouch UltraSoft Lancets] Misc See Rx Instructions .Route Qty: 200 1RF Rx Instructions: Testing 4 times a day glipizide 5 mg tablet extended release 24hr 5 mg PO DAILY 30 Days Qty: 90 3RF Prevalite 4 gram powder 4 g PO BID PRN (Reason: Diarrhea) Rx Instructions: 4 grams 2 times a day; DISSOLVED IN WATER dulaglutide 1.5 mg/0.5 mL pen injector 1.5 mg subcut HOUSER omeprazole 40 mg capsule,delayed release(DR/EC) 40 mg PO DAILY@0630 rosuvastatin 40 mg tablet 40 mg PO BEDTIME olmesartan 20 mg tablet 20 mg PO DAILY polyethylene glycol 3350 [Miralax] 17 gram/dose Powder 17 g PO DAILY PRN (Reason: Constipation) (DME) lancets [OneTouch Delica Plus Lancet] 30 gauge misc See Rx Instructions .Route Qty: 300 3RF Rx Instructions: As directed check the BS TID insulin glargine [Basaglar KwikPen U-100 Insulin] 100 unit/mL (3 mL) insulin pen 23 unit subcut DAILY ezetimibe [Zetia] 10 mg tablet 10 mg PO DAILY Qty: 90 2RF Discharge Orders: Discharge Order (Routine); Ordered 04/08/23 Ordered By: Marge Prieto Diet: cardiac diet Activity on Discharge: As tolerated Stand Alone Forms: Patient Portal Discharge page Care Plan Goals: Transfer to [facility] for cardiac cath Health Concerns: NSTEMI CHF hx gastric ulcers Plan of Treatment: Tx to [facility] for cardiac cath. Assessment: as elder
[2023-04-08] MEDS: Valsartan 80 MG TABLET PO (11:44)
--- NOTE | 2023-04-08 12:12 | MHC.CM.PN ---
IMM 04/08. Pt admitted with dx Acute CHF, he lives at home with his spouse/HCP, copy requested, pt independent/self-care, no services/DME, pts spouse able to transfer pt. Pt awaiting medical transfer to [facility]. PCP: Luke Sheriff vax: x 5 pfizer
[2023-04-08 14:13] LABS: PTT Heparin Drip 55.1 SEC (53-77.9)
[2023-04-08] MEDS: Sucralfate 1 GM TABLET PO ×2 (16:11→21:28)
[2023-04-08 17:07] LABS: Glucose, Whole Blood 86 mg/dL (60-115)
[2023-04-08 20:46] LABS: PTT Heparin Drip 35.6 SEC (53-77.9)
--- NOTE | 2023-04-08 20:48 | HO.PM.IMPN ---
Subjective Subjective Date of Service: 04/08/23 Interval History: Seen in follow up for NSTEMI No complaints at this time. No sob, cp. On heparin gtt Review of Systems Review of Systems: Yes all other systems are reviewed and are negative Physical Exam Vital Signs: Vital Signs: Last Vital Signs Temp 97.7 F 04/08/23 19:44 Pulse 82 04/08/23 19:44 Resp 16 04/08/23 19:44 BP 128/58 L 04/08/23 19:44 Pulse Ox 92 04/08/23 19:44 O2 Del Method Room Air 04/08/23 19:44 O2 Flow Rate 2 04/08/23 11:47 BMI result Body Mass Index 24.4 Constitutional - Awake and Alert, No apparent distress Eyes - PERRLA, EOMI Cardiovascular - S1S2, RRR, No edema Respiratory - Normal lung expansion, Normal respiratory effort, No respiratory distress, CTA bilaterally Gastrointestinal - NT / ND; +BS; No rebound or guarding Extremities - no calf tenderness bilaterally, no swelling Skin - Warm/Dry Neurological - Alert & oriented x3 Psychological - Appropriate affect Objective Data Active Medications Acetaminophen (Acetaminophen 325 Mg Tablet) 650 mg PO Q6H PRN PRN Reason: Pain, Mild (Pain Scale 1-3) Amlodipine Besylate (Amlodipine Besylate 5 Mg Tablet) 5 mg PO DAILY [facility]; Protocol Last Admin: 04/08/23 09:03 Dose: 5 mg Documented By: OSIRIS Aspirin (Aspirin 81 Mg Tab.Chew) 81 mg PO DAILY [facility] Last Admin: 04/08/23 09:03 Dose: 81 mg Documented By: OSIRIS Atorvastatin Calcium (Atorvastatin Calcium 80 Mg Tablet) 80 mg PO BEDTIME [facility] Cholestyramine Resin (Cholestyramine (With Sugar) 4 Gm Powd.Pack) 4 gm PO BID PRN PRN Reason: Diarrhea Dextrose (Dextrose 50 % 25 Gm/50 Ml Syringe) 25 gm IVPUSH Q15M PRN; Protocol PRN Reason: per Hypoglycemia Standing Ord. Docusate Sodium (Docusate Sodium 100 Mg Capsule) 100 mg PO DAILY PRN PRN Reason: Constipation Ezetimibe (Ezetimibe 10 Mg Tablet) 10 mg PO DAILY [facility] Last Admin: 04/08/23 09:03 Dose: 10 mg Documented By: OSIRIS Furosemide (Furosemide 40 Mg/4 Ml Vial) 40 mg IVPUSH DAILY [facility]; Protocol Last Admin: 04/08/23 09:03 Dose: 40 mg Documented By: OSIRIS Glucose (Glucose Gel 15 Gm Gel..Gram.) 15 gm PO Q15M PRN; Protocol PRN Reason: per Hypoglycemia Standing Ord. Heparin Sodium (Porcine) (Heparin Sodium,Porcine 5,000 Unit/Ml Vial) 3,100 unit 40 unit/kg (3100 unit) IVPUSH PROTOCOL BOLUS PRN; Protocol PRN Reason: 40 unit/kg - Heparin Protocol Heparin Sodium (Porcine) (Heparin Sodium,Porcine 5,000 Unit/Ml Vial) 6,200 unit 80 unit/kg (6200 unit) IVPUSH PROTOCOL BOLUS PRN; Protocol PRN Reason: 80 unit/kg - Heparin Protocol Hydrochlorothiazide (Hydrochlorothiazide 25 Mg Tablet) 25 mg PO DAILY [facility]; Protocol Last Admin: 04/08/23 09:03 Dose: 25 mg Documented By: OSIRIS Heparin Sodium/Sodium Chloride (Heparin Sodium,Porcine/1/2ns) 25,000 unit in 250 mls @ 0 mls/hr IVCONT .Q0M [facility]; Protocol Last Titration: 04/08/23 14:24 Dose: 12 units/kg/hr, 9.25 mls/hr Documented By: BRIANA Co-signed By: CELESTINA Insulin Glargine (Insulin Glargine,Hum.Rec.Anlog 100 Unit/Ml 10 Ml Vial) 23 unit SUBCUT DAILY [facility] Last Admin: 04/08/23 09:02 Dose: 23 unit Documented By: OSIRIS Insulin Human Lispro (Insulin Lispro 100 Unit/Ml 3 Ml Vial) 0 unit SUBCUT QIDACHS [facility]; Protocol Last Admin: 04/08/23 17:11 Dose: Not Given Documented By: JOHN Non-Admin Reason: No Insulin Coverage Metoprolol Tartrate (Metoprolol Tartrate 100 Mg Tablet) 100 mg PO BID [facility]; Protocol Last Admin: 04/08/23 09:03 Dose: 100 mg Documented By: OSIRIS Omeprazole (Omeprazole 40 Mg Capsule.) 40 mg PO DAILY@0630 [facility] Ondansetron HCl (Ondansetron Hcl 4 Mg/2 Ml Vial) 4 mg IVPUSH Q8H PRN PRN Reason: Nausea and Vomiting Pharmacy Consult (Consult Rx Perform Med Rec) 1 each MISCELLANE ONCE PRN PRN Reason: Consult order Polyethylene Glycol (Polyethylene Glycol 3350 17 Gm Powd.Pack) 17 gm PO DAILY PRN PRN Reason: Constipation Sodium Chloride (0.9 % Sodium Chloride Flush 3 Ml Syringe) 3 ml IVFLUSH QSHIFT [facility] Last Admin: 04/08/23 16:08 Dose: 3 ml Documented By: JOHN Sucralfate (Sucralfate 1 Gm Tablet) 1 gm PO QIDACHS [facility] Last Admin: 04/08/23 16:11 Dose: 1 gm Documented By: JOHN Valsartan (Valsartan 80 Mg Tablet) 80 mg PO DAILY [facility] Last Admin: 04/08/23 11:44 Dose: 80 mg Documented By: BRIANA Labs 04/07/23 16:45 04/08/23 06:43 Labs: Laboratory Results - last 24 hr 04/07/23 04/07/23 04/07/23 20:59 22:02 23:23 PT INR aPTT Heparin Protocol Anion Gap Estim Creat Clear Calc Estimated GFR POC Glucose Random Glucose Calcium Total Bilirubin AST ALT Alkaline Phosphatase Troponin I High Sens 84.2 H D 165.8 H* D B-Natriuretic Peptide 194 H Total Protein Albumin 04/07/23 04/08/23 04/08/23 23:23 06:43 06:43 PT 12.9 INR 1.1 aPTT Heparin Protocol 31.2 L 92.9 H D Anion Gap 15 Estim Creat Clear Calc 75.7 Estimated GFR > 60 POC Glucose Random Glucose 105 Calcium 9.7 Total Bilirubin 0.6 AST 30 ALT 45 H Alkaline Phosphatase 93 Troponin I High Sens B-Natriuretic Peptide Total Protein 6.6 Albumin 3.6 04/08/23 04/08/23 04/08/23 07:09 07:38 11:03 PT INR aPTT Heparin Protocol 63.7 D Anion Gap Estim Creat Clear Calc Estimated GFR POC Glucose 146 H Random Glucose Calcium Total Bilirubin AST ALT Alkaline Phosphatase Troponin I High Sens 274.8 H* D B-Natriuretic Peptide Total Protein Albumin 04/08/23 04/08/23 04/08/23 11:28 13:45 17:04 PT INR aPTT Heparin Protocol 55.1 Anion Gap Estim Creat Clear Calc Estimated GFR POC Glucose 117 H 86 Random Glucose Calcium Total Bilirubin AST ALT Alkaline Phosphatase Troponin I High Sens B-Natriuretic Peptide Total Protein Albumin Microbiology Microbiology Results: Microbiology 04/07/23 17:19 Blood Culture - Preliminary Blood - Venous No growth after 24 hours. 04/07/23 17:22 Blood Culture - Preliminary Blood - Venous No growth after 24 hours. Assessment and Plan (1) NSTEMI (non-ST elevated myocardial infarction): Status: Acute (2) CHF exacerbation: Status: Acute Plan this is a 68-year-old male with past medical history of CAD status post CABG, HTN, HLD, diabetes on insulin presents the hospital with complaints of epigastric/chest pain/pressure, nausea, found to have NSTEMI #? acute NSTEMI -? typical chest pain, with elevated troponin positive delta - EKG shows? nonspecific ST T wave changes -? spoke to Cardiology, patient started on heparin ggt -? echocardiogram, cardiology consult -? added aspirin, and? changed simvastatin to atorvastatin -Plan to dc to [facility] for cardiac cath, but no beds at this time. Continue heparin per protocol per cardiology - Discussed eventual DAPT with GI given hx GI bleed. Recommend PPI BID and carafate QIDACHS #? acute CHF exacerbation -? shortness of breath, orthopnea, PND, elevated BNP -? evidence of volume overload on imaging -? will treat with Lasix, echocardiogram, strict I&O, low-sodium diet,? daily weight #? leukocytosis -? no evidence of acute infection -? likely reactive -? follow CBC #? hypertension -? stable -? continue home antihypertensives #? diabetes -? continue home insulin, hold oral antihyperglycemics -? will add low-dose sliding scale insulin -? diabetic diet #? hyperlipidemia -? simvastatin changed after the statin ?DVT prophylaxis: Heparin ggt ?she is given patient's need for further evaluation of acute NSTEMI patient will require minimum 2 nights inpatient hospital stay for further management and monitoring. Plan to dc to [facility] for cardiac cath tomorrow Time Spent With Patient Time: Total time managing care of this patient today ____ minutes. Quality Stroke Does the patient have a stroke diagnosis?: No VTE Prior VTE?: No VTE Risk Level:: Medical - moderate - high VTE Device Contraindication: Treatment Not Indicated VTE Drug Contraindication: N/A - Med Ordered
[2023-04-08 20:54] LABS: Glucose, Whole Blood 110 mg/dL (60-115)
[2023-04-08] MEDS: Atorvastatin Calcium 80 MG TABLET PO (21:28)
[2023-04-09] MEDS: Heparin Sodium,Porcine/1/2NS 25,000 UNIT/250 ML IV.SOLN 12.34 UNIT IVCONT (00:26)
[2023-04-09 03:49] LABS: PTT Heparin Drip 155.9 SEC (53-77.9)
[2023-04-09 03:52] VITALS: BP 116/55; PULSE 64; RESP 16; TEMP 36.6; O2SAT 94
[2023-04-09 06:00] VITALS: BMI 25.5
[2023-04-09] MEDS: Omeprazole 40 MG CAPSULE.DR PO (06:07)
--- NOTE | 2023-04-09 06:44 | PC.NURSE ---
CALL PLACED TO LAB DEPARTMENT AY 0561 INQUIRING ABOUT PTS ORDERED PTT-HD FOR 0500 WITH ADJUSTMENTS DRIP WAS TURNED OFF AND DRAW DUE 0500. LAB STATED WILL BE THERE WHEN ABLE. NURSING CLERICAL AIDE TEACHER ALERTED TO LAB DRAW TIME FRAME AND AWARE OF NEED FOR RESULTS HEPARIN DRIP WAS PAUSED. CLERICAL AIDE TEACHER WILL FOLLOW UP. WILL CONTINUE TO WATCH FOR RESULTS.
--- NOTE | 2023-04-09 06:47 | PC.NURSE ---
STILL NO PTT-HD RESULTS OF 644 AND NOTED PA ENTERED LABWORK.
[2023-04-09 07:11] VITALS: BP 138/71; PULSE 63; RESP 20; TEMP 36.8; O2SAT 96
[2023-04-09 07:12] LABS: MANUAL DIFF FLAG NO
[2023-04-09 07:16] LABS: Glucose, Whole Blood 97 mg/dL (60-115)
[2023-04-09 07:18] LABS: Basophils Absolute Auto 0.1 X10*3/uL (0.0-0.2); Basophils Percent Auto 0.6 % (0-2); Eosinophils Absolute Auto 0.3 X10*3/uL (0.0-0.4); Eosinophils Percent Auto 1.8 % (0-4); Hematocrit 37.2 % (42.0-52.0); Imm Gran Abs Auto 0.06 X10*3/uL (0.00-0.03); Imm Gran Pct Auto 0.4 % (0.0-0.4); Lymphocytes Absolute Auto 2.5 X10*3/uL (1.2-4.9); Lymphocytes Percent Auto 16.1 % (20-40); Mean Corpuscular HGB Conc 32.3 g/dl (31.0-36.0); Mean Corpuscular Hemoglobin 26.7 pg (27.0-33.0); Mean Corpuscular Volume 82.9 fL (80.0-98.0); Mean Platelet Volume 10.6 fL (9.4-12.4); Monocytes Absolute Auto 1.2 X10*3/uL (0.1-1.2); Monocytes Percent Auto 7.6 % (2-11); Neutrophils Absolute Auto 11.2 x10*3/uL (2.0-8.3); Neutrophils Percent Auto 73.5 % (45-73); Platelet Count 233 X10*3/uL (160-400); Red Blood Count 4.49 X10*6/uL (4.60-5.80); Red Cell Distribution Width 13.6 % (11.0-16.0); White Blood Count 15.2 X10*3/uL (4.8-10.8)
[2023-04-09 07:24] LABS: PTT Heparin Drip 31.2 SEC (53-77.9)
[2023-04-09 07:40] LABS: Anion Gap 12 (12-20); Blood Urea Nitrogen 21 mg/dL (9-16); Calcium 9.1 mg/dL (8.4-10.2); Carbon Dioxide 32 mmol/L (22-29); Chloride 98 mmol/L (96-108); Creatinine Clr Calc Pharmacy 93.4; Estimated Glomerular Filt Rate > 60; Glucose Random 90 mg/dL (60-115); Sodium 139 mmol/L (135-145)
[2023-04-09] MEDS: Furosemide 40 MG/4 ML VIAL IVPUSH (08:59)
[2023-04-09] MEDS: Potassium Chloride Packet 20 MEQ PACKET 40 MEQ PO (08:59)
[2023-04-09] MEDS: Sucralfate 1 GM TABLET PO ×2 (08:59→13:10)
[2023-04-09] MEDS: amLODIPine Besylate 5 MG TABLET PO (08:59)
[2023-04-09] MEDS: Metoprolol Tartrate 100 MG TABLET PO (08:59)
[2023-04-09] MEDS: Insulin Glargine,Hum.rec.anlog 100 UNIT/ML 10 ML VIAL 23 UNIT SUBCUT (08:59)
[2023-04-09] MEDS: Valsartan 80 MG TABLET PO (08:59)
[2023-04-09] MEDS: Aspirin 81 MG TAB.CHEW PO (09:00)
[2023-04-09] MEDS: Ezetimibe 10 MG TABLET PO (09:00)
[2023-04-09] MEDS: hydroCHLOROthiazide 25 MG TABLET PO (09:00)
[2023-04-09] MEDS: 0.9 % Sodium Chloride Flush 3 ML SYRINGE IVFLUSH (09:00)
[2023-04-09] MEDS: Docusate Sodium 100 MG CAPSULE PO (09:32)
--- NOTE | 2023-04-09 09:49 | PM.PNCARD ---
Subjective Subjective Date of Service: 04/09/23 Interval history: He has not had any further episodes of chest pain. States that he is feeling comfortable. Review of Systems Review of Systems Yes all other systems are reviewed and are negative Constitutional: Reports as per HPI and Reports no additional constitutional complaints Eyes: Reports as per HPI and Denies no additional eye complaints Denies system reviewed and no additional complaints, except as documented and Reports as per HPI Cardiovascular: Reports as per HPI, Reports no additional cardiovascular complaints, Denies acrocyanosis, Denies cool extremities, Denies chest pain, Denies leg edema, Denies lightheadedness, Denies palpitations and Denies dyspnea Respiratory: Reports as per HPI, Denies no additional respiratory complaints and Denies dyspnea Gastrointestinal: Reports as per HPI and Denies no additional gastrointestinal complaints Genitourinary: Reports no additional male genitourinary complaints and Reports as per HPI Musculoskeletal: Reports no additional musculoskeletal complaints and Reports as per HPI Skin/Breast: Reports system reviewed and no additional complaints, except as docu Reports system reviewed and no additional complaints, except as documented and Reports as per HPI Psychiatric: Reports no additional psychiatric complaints and Reports as per HPI Endocrine: Reports no additional endocrine complaints, Reports as per HPI and Denies palpitations Hematologic/Lymphatic: Reports no additional hematologic/lymphatic complaints and Reports as per HPI Allergic/Immunologic: Reports no additional allergic/immunologic complaints and Reports as per HPI Physical Exam Vital Signs: Last Vital Signs Temp 98.3 F 04/09/23 07:11 Pulse 63 04/09/23 07:11 Resp 20 04/09/23 07:11 BP 138/71 04/09/23 07:11 Pulse Ox 96 04/09/23 07:11 O2 Del Method Room Air 04/09/23 07:11 O2 Flow Rate 2 04/08/23 11:47 BMI result Body Mass Index 25.5 Const General: comfortable and no acute distress Orientation/consciousness: patient oriented x3 HEENT Other: Unremarkable Head: Yes normal to inspection Neck Neck: Yes normal visual inspection Chest Chest palpation & inspection: normal inspection of the chest Resp Auscultation: clear to auscultation bilaterally Cardio Palpation: normal PMI Heart sounds: S1 normal heart sound present, S2 normal heart sound present, no gallops, no murmurs and no rubs GI Palpation (GI): Soft to palpation Back/Spine/Pelvis Other: unremarkable Skin General skin exam: no rashes or lesions noted Neuro General: patient oriented x3 Extrem General: Yes normal to inspection Psych Mental Status: mental status grossly normal Objective Labs and Meds 04/09/23 06:50 04/09/23 06:50 Lab results: Laboratory Results - last 24 hr 04/08/23 04/08/23 04/08/23 11:03 11:28 13:45 WBC RBC Hgb Hct MCV MCH MCHC RDW Plt Count MPV Immature Gran % (Auto) Neut % (Auto) Lymph % (Auto) Gibson % (Auto) Eos % (Auto) Baso % (Auto) Lymph # (Auto) Gibson # (Auto) Eos # (Auto) Baso # (Auto) Abs Immat Gran (auto) Absolute Neuts (auto) Absolute Nucleated RBC Nucleated RBC % (auto) aPTT Heparin Protocol 63.7 D 55.1 Sodium Potassium Chloride Carbon Dioxide Anion Gap BUN Creatinine Estim Creat Clear Calc Estimated GFR POC Glucose 117 H Random Glucose Calcium 04/08/23 04/08/23 04/08/23 17:04 19:36 20:51 WBC RBC Hgb Hct MCV MCH MCHC RDW Plt Count MPV Immature Gran % (Auto) Neut % (Auto) Lymph % (Auto) Gibson % (Auto) Eos % (Auto) Baso % (Auto) Lymph # (Auto) Gibson # (Auto) Eos # (Auto) Baso # (Auto) Abs Immat Gran (auto) Absolute Neuts (auto) Absolute Nucleated RBC Nucleated RBC % (auto) aPTT Heparin Protocol 35.6 L D Sodium Potassium Chloride Carbon Dioxide Anion Gap BUN Creatinine Estim Creat Clear Calc Estimated GFR POC Glucose 86 110 Random Glucose Calcium 04/09/23 04/09/23 04/09/23 03:10 06:50 06:50 WBC 15.2 H RBC 4.49 L Hgb 12.0 L Hct 37.2 L MCV 82.9 MCH 26.7 L MCHC 32.3 RDW 13.6 Plt Count 233 MPV 10.6 Immature Gran % (Auto) 0.4 Neut % (Auto) 73.5 H Lymph % (Auto) 16.1 L Gibson % (Auto) 7.6 Eos % (Auto) 1.8 Baso % (Auto) 0.6 Lymph # (Auto) 2.5 Gibson # (Auto) 1.2 Eos # (Auto) 0.3 Baso # (Auto) 0.1 Abs Immat Gran (auto) 0.06 H Absolute Neuts (auto) 11.2 H Absolute Nucleated RBC 0.000 Nucleated RBC % (auto) 0.0 aPTT Heparin Protocol 155.9 H* D Sodium 139 Potassium 3.0 L D Chloride 98 Carbon Dioxide 32 H Anion Gap 12 BUN 21 H Creatinine 0.77 Estim Creat Clear Calc 93.4 Estimated GFR > 60 POC Glucose Random Glucose 90 Calcium 9.1 D 04/09/23 04/09/23 06:50 07:13 WBC RBC Hgb Hct MCV MCH MCHC RDW Plt Count MPV Immature Gran % (Auto) Neut % (Auto) Lymph % (Auto) Gibson % (Auto) Eos % (Auto) Baso % (Auto) Lymph # (Auto) Gibson # (Auto) Eos # (Auto) Baso # (Auto) Abs Immat Gran (auto) Absolute Neuts (auto) Absolute Nucleated RBC Nucleated RBC % (auto) aPTT Heparin Protocol 31.2 L D Sodium Potassium Chloride Carbon Dioxide Anion Gap BUN Creatinine Estim Creat Clear Calc Estimated GFR POC Glucose 97 Random Glucose Calcium Progress Note: A&P Assessment and plan (1) NSTEMI (non-ST elevated myocardial infarction): Status: Acute (2) Gastric ulcer: Status: Acute Plan Peak high sensitivity troponin 275. Echocardiogram with LVEF of 30-35%. Wall motion abnormalities in the LAD territory. Remains on IV heparin drip, aspirin, beta-blockers and statins. He was supposed to go to [facility] as today for cardiac catheterization but no beds available. Again call bed management today to reassess and hopefully transfer today. He does have a history of gastric ulcers from January and per GI may still proceed with cardiac catheterization but use omeprazole/sucralfate. Time Spent With Patient Time: Total time managing care of this patient today 45 minutes. This includes time spent in review of chart, laboratory data, imaging studies, review of telemetry, counseling patient, discussion with hospitalist, RN, documentation, coordination of care. Progress Note: Quality Stroke Does the patient have a stroke diagnosis?: No Procedures Date of Service Date of Service: 04/09/23
[2023-04-09 11:13] LABS: Glucose, Whole Blood 148 mg/dL (60-115)
[2023-04-09 11:31] VITALS: BP 118/63; PULSE 67; RESP 20; TEMP 36.1; O2SAT 94
--- NOTE | 2023-04-09 13:05 | PM.DS ---
DS: Providers Provider Date of Service: 04/09/23 Date of admission: 04/07/23 23:45 Date of discharge: 04/09/23 Primary care physician: Luke Albright MD Attending physician on admission: John Greene Consults: 04/07/23 23:45 Consult to Cardiology Routine [place]ing [place] [facility] [place] Reason for consultation: CHF, elevated trop Has provider been notified: No Attending physician on discharge: Jensen Anderson Discharging clinician: Marge Prieto DS: Transfer Hospital Acceptance Reason for Transfer: NSTEMI Name of Facility: [facility] DS: Diagnosis Discharge Diagnosis (1) NSTEMI (non-ST elevated myocardial infarction): Status: Acute (2) Gastric ulcer: Status: Acute DS: Summary Hospital Course Hospital Course: HPI on admission by Dr. Greene 04/07: Chief Complaint: epigastric/chest pain ?68-year-old male with past medical history of CAD status post CABG in 1999, BPH, generalized anxiety disorder, history of gastroparesis, diabetes, HLD, HTN who presents the hospital with complaints of? chest as well as epigastric pain.? Pain is pressure-like, radiating up his chest, associated with lightheadedness, occurred while at rest about 4 hours prior to presentation to the ED.? has nausea, no vomiting but says that he was spitting up stuff.? Improved after receiving nitroglycerin in the ED.? feeling shortness of breath, no cough or sputum production, no palpitations, no abdominal pain, no diarrhea constipation, no urinary symptoms and no lower extremity edema.? ?he does report orthopnea and PND as well On arrival to the ED patient noted to be hypertensive otherwise stable Labs are significant for WBC count of 21, troponin that? initially was less than 2.7 increased to 84, and there troponin of 165, BNP of 194, ?chest x-ray shows CHF with interstitial and early alveolar pulmonary edema ?abdomen pelvic CT shows diverticulosis without diverticulitis, and hazy ground opacities of both lungs? nonspecific ?discussed with Cardiology, patient will be started on heparin drip, will be admitted for further management Hospital course: Pt admitted to telemetry on heparin gtt per protocol for NSTEMI and found to have acute CHF exacerbation. Trops 84.2 --> 165.8 --> 274.8. Chest pain resolved. Asa 81 mg initiated, and atorvastatin 80mg (on rosuvastatin 40mg at home, not on formulary). Continues on metoprolol 100mg BID. Patient hypertensive to 182/90 on arrival with gradual improvement in blood pressures to 120/63. He remained on 4L O2 via oxymask throughout admission for comfort, no hypoxia noted. He was evaluated by cardiology recommending dual antiplatelet therapy. However, pt had admission two months ago with EGD showing multiple gastric ulcers on 02/01, and GI recommended repeat EGD in 2 months. Discussed with gastroenterology recommending PPI BID and sucralfate AC TID and HS. Can continue if no evidence of bleeding. Currently on omeprazole 40mg daily, will change to BID and add carafate as advised. Continue on d/c if plan for DAPT. Cardiology recommends transfer to [facility] for cardiac catheterization. Continue metoprolol 100 mg b.i.d., rosuvastatin 40 mg, aspirin 81 mg daily, IV heparin per protocol. #? acute NSTEMI -? typical chest pain, with elevated troponin positive delta - EKG shows? nonspecific ST T wave changes -? spoke to Cardiology, patient started on heparin ggt -? echocardiogram results show moderately decreased LV systolic function with EF 30-35%. The apical inferior, apical septum, mid inferoseptal, and mid anteroseptal segments are akinetic -? Continue asa, bb, statin #? acute CHF exacerbation- clinically improving -Echo shows moderately decreased LV systolic function, EF 30-35%. -? BNP elevated, 194. SOB resolved, orthopnea persists -? evidence of volume overload on imaging -? Treated with IV lasix, cardiac diet #? leukocytosis- chronic -? no evidence of acute infection -? Outpt follow up with hematology -? follow CBC #Hypokalemia 04/09- 3.0 -repleted with 40meq PO KCl -Repeat K 3.7 #History gastric ulcers -EGD 02/01 with multiple gastric ulcers -Due for repeat EGD once stable -H/H stable -Per GI, DAPT ok with PPI BID and carafate QIDACHS #? hypertension -? stable -? continue home antihypertensives #? diabetes without hyperglycemia -? continue home insulin, hold oral antihyperglycemics -? will add low-dose sliding scale insulin -? diabetic diet #? hyperlipidemia -? continue statin Time spent discussing smoking cessation with patient: more than 10 minutes Status at Discharge Functional status at discharge: independent ambulation Overall status at discharge: patient is progressing back to baseline Time Spent with Patient Time attestation: Total time managing care of this patient today ____ minutes. Discharge coordination time: Greater than 30 minutes Quality: Safe Use of Opioids Does Pt have an Active Cancer Diagnosis on the Problem List?: No Quality: Stroke Does the patient have a stroke diagnosis?: No Physical Exam Vital Signs: Vital Signs: Last Vital Signs Temp 96.9 F 04/09/23 11:31 Pulse 67 04/09/23 11:31 Resp 20 04/09/23 11:31 BP 118/63 04/09/23 11:31 Pulse Ox 94 04/09/23 11:31 O2 Del Method Room Air 04/09/23 11:31 O2 Flow Rate 2 04/08/23 11:47 BMI result Body Mass Index 25.5 Constitutional - Awake and Alert, No apparent distress Eyes - PERRLA, EOMI Cardiovascular - S1S2, RRR, No edema Respiratory - Normal lung expansion, Normal respiratory effort, No respiratory distress, CTA bilaterally Gastrointestinal - NT / ND; +BS; No rebound or guarding Extremities - no calf tenderness bilaterally, no swelling Skin - Warm/Dry Neurological - Alert & oriented x3 Psychological - Appropriate affect DS: Data Data Completed and Pending Completed studies during hospitalization [Text1]: Procedures Drainage of Stomach, Pylorus, Via Natural or Artificial Opening Endoscopic, Diagnostic (01/30/23) Excision of Stomach, Pylorus, Via Natural or Artificial Opening Endoscopic, Diagnostic (01/30/23) Labs on day of discharge: Laboratory Results - last 24 hr 04/08/23 04/08/23 04/08/23 13:45 17:04 19:36 WBC RBC Hgb Hct MCV MCH MCHC RDW Plt Count MPV Immature Gran % (Auto) Neut % (Auto) Lymph % (Auto) [place] % (Auto) Eos % (Auto) Baso % (Auto) Lymph # (Auto) [place] # (Auto) Eos # (Auto) Baso # (Auto) Abs Immat Gran (auto) Absolute Neuts (auto) Absolute Nucleated RBC Nucleated RBC % (auto) aPTT Heparin Protocol 55.1 35.6 L D Sodium Potassium Chloride Carbon Dioxide Anion Gap BUN Creatinine Estim Creat Clear Calc Estimated GFR POC Glucose 86 Random Glucose Calcium 04/08/23 04/09/23 04/09/23 20:51 03:10 06:50 WBC 15.2 H RBC 4.49 L Hgb 12.0 L Hct 37.2 L MCV 82.9 MCH 26.7 L MCHC 32.3 RDW 13.6 Plt Count 233 MPV 10.6 Immature Gran % (Auto) 0.4 Neut % (Auto) 73.5 H Lymph % (Auto) 16.1 L [place] % (Auto) 7.6 Eos % (Auto) 1.8 Baso % (Auto) 0.6 Lymph # (Auto) 2.5 [place] # (Auto) 1.2 Eos # (Auto) 0.3 Baso # (Auto) 0.1 Abs Immat Gran (auto) 0.06 H Absolute Neuts (auto) 11.2 H Absolute Nucleated RBC 0.000 Nucleated RBC % (auto) 0.0 aPTT Heparin Protocol 155.9 H* D Sodium Potassium Chloride Carbon Dioxide Anion Gap BUN Creatinine Estim Creat Clear Calc Estimated GFR POC Glucose 110 Random Glucose Calcium 04/09/23 04/09/23 04/09/23 06:50 06:50 07:13 WBC RBC Hgb Hct MCV MCH MCHC RDW Plt Count MPV Immature Gran % (Auto) Neut % (Auto) Lymph % (Auto) [place] % (Auto) Eos % (Auto) Baso % (Auto) Lymph # (Auto) [place] # (Auto) Eos # (Auto) Baso # (Auto) Abs Immat Gran (auto) Absolute Neuts (auto) Absolute Nucleated RBC Nucleated RBC % (auto) aPTT Heparin Protocol 31.2 L D Sodium 139 Potassium 3.0 L D Chloride 98 Carbon Dioxide 32 H Anion Gap 12 BUN 21 H Creatinine 0.77 Estim Creat Clear Calc 93.4 Estimated GFR > 60 POC Glucose 97 Random Glucose 90 Calcium 9.1 D 04/09/23 11:09 WBC RBC Hgb Hct MCV MCH MCHC RDW Plt Count MPV Immature Gran % (Auto) Neut % (Auto) Lymph % (Auto) [place] % (Auto) Eos % (Auto) Baso % (Auto) Lymph # (Auto) [place] # (Auto) Eos # (Auto) Baso # (Auto) Abs Immat Gran (auto) Absolute Neuts (auto) Absolute Nucleated RBC Nucleated RBC % (auto) aPTT Heparin Protocol Sodium Potassium Chloride Carbon Dioxide Anion Gap BUN Creatinine Estim Creat Clear Calc Estimated GFR POC Glucose 148 H Random Glucose Calcium Preliminary micro results at discharge 04/07/23 17:19 Blood Culture - Preliminary Blood - Venous No growth after 24 hours. 04/07/23 17:22 Blood Culture - Preliminary Blood - Venous No growth after 24 hours. Discharge Plan Discharge Anticipated Discharge Date/Time: 04/09/23 15:29 Patient Disposition: Xfer Acute Care Hospital Discharge Diagnosis: NSTEMI, CHF exacerbation Referrals: Po,Luke Hart MD [Primary Care Provider] - 1 Week Discharge Medications: New furosemide 10 mg/mL Solution 40 mg IVPUSH DAILY Qty: 40 0RF Protocol: Hold for SBP< HOLD for SBP < : 90 sucralfate 1 gram Tablet 1 g PO QIDACHS Qty: 30 0RF omeprazole 40 mg Capsule,Delayed Release(Dr/Ec) 40 mg PO BID@0630,1630 Qty: 1 0RF aspirin 81 mg Tablet,Chewable 81 mg PO DAILY Qty: 30 0RF heparin(porcine) in 0.45% NaCl 25,000 unit/250 mL Parenteral Solution 25,000 unit continuous IV infusion .Q0M Qty: 6000 0RF Continued (DME) pen needle, diabetic [1st Tier Unifine Pentips] 31 gauge x 3/16 needle See Rx Instructions .ROUTE .MEDSUPPLY Qty: 4 3RF Rx Instructions: As directed inject insulin 4 times a day hydrochlorothiazide 25 mg tablet 25 mg PO DAILY 90 Days Qty: 90 2RF metoprolol tartrate 100 mg tablet 100 mg PO BID Qty: 180 2RF amlodipine 5 mg tablet 5 mg PO DAILY Qty: 90 2RF (DME) blood-glucose meter [OneTouch Ultra2 Meter] [facility] [place] See Rx Instructions .Route Qty: 1 0RF Rx Instructions: As directed (DME) OneTouch Ultra Test Strip See Rx Instructions .Route Qty: 100 3RF Rx Instructions: As directed (DME) lancets [OneTouch UltraSoft Lancets] [facility] [place] See Rx Instructions .Route Qty: 200 1RF Rx Instructions: Testing 4 times a day glipizide 5 mg tablet extended release 24hr 5 mg PO DAILY 30 Days Qty: 90 3RF Prevalite 4 gram powder 4 g PO BID PRN (Reason: Diarrhea) Rx Instructions: 4 grams 2 times a day; DISSOLVED IN WATER dulaglutide 1.5 mg/0.5 mL pen injector 1.5 mg subcut HOUSER omeprazole 40 mg capsule,delayed release(DR/EC) 40 mg PO DAILY@0630 rosuvastatin 40 mg tablet 40 mg PO BEDTIME olmesartan 20 mg tablet 20 mg PO DAILY polyethylene glycol 3350 [Miralax] 17 gram/dose Powder 17 g PO DAILY PRN (Reason: Constipation) (DME) lancets [Pie DigitalTouch Delica Plus Lancet] 30 gauge misc See Rx Instructions .Route Qty: 300 3RF Rx Instructions: As directed check the BS TID insulin glargine [Basaglar KwikPen U-100 Insulin] 100 unit/mL (3 mL) insulin pen 23 unit subcut DAILY ezetimibe [Zetia] 10 mg tablet 10 mg PO DAILY Qty: 90 2RF Discharge Orders: Discharge Order (Routine); Ordered 04/09/23 Ordered By: Marge Prieto Diet: cardiac diet Activity on Discharge: As tolerated Stand Alone Forms: Patient Portal Discharge page Care Plan Goals: Transfer to [facility] for cardiac cath Health Concerns: NSTEMI CHF hx gastric ulcers Plan of Treatment: Tx to [facility] for cardiac cath. Assessment: as above
--- NOTE | 2023-04-09 14:27 | MHC.CM.PN ---
PER BUSINESS ANALYST MANAGER PT RECEIVED BED ASSIGNMENT AT [facility] [place] FOR CARDIAC CATH, [facility] FOR TRANSPORT
[2023-04-09] MEDS: Heparin Sodium,Porcine 5,000 UNIT/ML VIAL 3100 UNIT IVPUSH (14:51)
[2023-04-09 14:52] LABS: Anion Gap 12 (12-20); Blood Urea Nitrogen 22 mg/dL (9-16); Calcium 9.5 mg/dL (8.4-10.2); Carbon Dioxide 34 mmol/L (22-29); Chloride 96 mmol/L (96-108); Creatinine Clr Calc Pharmacy 78.2; Estimated Glomerular Filt Rate > 60; Glucose Random 139 mg/dL (60-115); Potassium 3.7 mmol/L (3.3-5.1); Sodium 138 mmol/L (135-145)
--- NOTE | 2023-04-09 15:34 | P.CDIM_ITS ---
PROVIDER RESPONSE TEXT: To clarify, the appropriate diagnosis supported by the clinical indicators: Systolic: acute systolic HF exacerbation QUERY TEXT: PHYSICIAN'S DOCUMENTATION REQUEST Date of Query: 04/09/2023 10:14 AM EDT Patient Name: Divya Nails Admit Date: 04/08/2023 Dear Marge Prieto, A review of the medical record indicates additional documentation may be needed. Please review below and update the documentation accordingly. Clinical Indicators: Per Hospitalist Progress Note 04/08/23: acute CHF exacerbation - shortness of breath, orthopnea, PND, elevated BNP - evidence of volume overload on imaging - will treat with Lasix, echocardiogram, strict I&O, low-sodium diet, daily weight Please provide further specificity regarding the most likely type and acuity of CHF you are evaluatin g, treating, or monitoring. Systolic Please specify if Acute, Chronic, or Acute on chronic, or Unable to determine Diastolic Please specify if Acute, Chronic, or Acute on chronic, or Unable to determine Combined Systolic/Diastolic Please specify if Acute, Chronic, or Acute on chronic, or Unable to determine Other (explain)Clinically unable to determine (explain)Thank you, Marya Tobin RN Use of terms such as suspected, likely, concern for, or probable (associated with a specific diagnosi s that is being evaluated, monitored, or treated as if it exists) are acceptable and can be coded in the inpatient se tting, when documented at the time of discharge. Please use your independent medical judgment in providing your response. THIS QUERY IS PART OF THE PERMANENT MEDICAL RECORD
== END 2023-04-09 15:37 | disposition short-term general hospital (02) | DRG 280 ==
LOC: HO.ED 23:19 → HO.EDOVER 23:50 → HO.IMC 04-08 07:00
PROVIDERS: Admitting Provider Internal Medicine; Emergency Provider Emergency Medicine; PCP Internal Medicine; Visit Provider Physician Assistant
DX: I21.4 Non-ST elevation (NSTEMI) myocardial infarction (principal); I50.23 Acute on chronic systolic (congestive) heart failure; I11.0 Hypertensive heart disease with heart failure; I25.10 Atherosclerotic heart disease of native coronary artery without angina pectoris; Z95.1 Presence of aortocoronary bypass graft; N40.0 Benign prostatic hyperplasia without lower urinary tract symptoms; E87.6 Hypokalemia; D72.829 Elevated white blood cell count, unspecified; K25.9 Gastric ulcer, unspecified as acute or chronic, without hemorrhage or perforation; F41.1 Generalized anxiety disorder; E78.00 Pure hypercholesterolemia, unspecified; Z20.822 Contact with and (suspected) exposure to COVID-19; Z79.4 Long term (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; Z79.82 Long term (current) use of aspirin; Z79.899 Other long term (current) drug therapy
CPT/HCPCS: 36415; 71045; 74177; 80048; 80053; 80076; 80307; 81003; 82272; 82947; 83605; 83735; 83880; 84484; 85025; 85610; 85730; 86850; 86900; 86901; 87040; 87635; 93005; 93306; 99283; 99284; 99285; J1643; J1940; J2270; J2405; Q9957; Q9967

== ENCOUNTER 2023-04-25 00:09 | Emergency (ER) | payer MEDICARE, SELFPAY ==
[2023-04-25 00:18] VITALS: BP 165/79; PULSE 87; RESP 16; TEMP 37.6; O2SAT 94; BMI 28.1
[2023-04-25 00:28] VITALS: BP 177/77; PULSE 92; PULSE 93; RESP 19; TEMP 37.6; O2SAT 92
[2023-04-25 00:31] LABS: MANUAL DIFF FLAG NO
[2023-04-25 00:32] LABS: Basophils Absolute Auto 0.1 X10*3/uL (0.0-0.2); Basophils Percent Auto 0.7 % (0-2); Eosinophils Absolute Auto 0.9 X10*3/uL (0.0-0.4); Eosinophils Percent Auto 5.9 % (0-4); Hematocrit 32.6 % (42.0-52.0); Hemoglobin 10.5 g/dl (14.0-18.0); Imm Gran Abs Auto 0.12 X10*3/uL (0.00-0.03); Imm Gran Pct Auto 0.8 % (0.0-0.4); Lymphocytes Absolute Auto 2.2 X10*3/uL (1.2-4.9); Lymphocytes Percent Auto 15.3 % (20-40); Mean Corpuscular HGB Conc 32.2 g/dl (31.0-36.0); Mean Corpuscular Hemoglobin 26.9 pg (27.0-33.0); Mean Corpuscular Volume 83.4 fL (80.0-98.0); Monocytes Absolute Auto 1.1 X10*3/uL (0.1-1.2); Monocytes Percent Auto 7.8 % (2-11); Neutrophils Percent Auto 69.5 % (45-73); Platelet Count 320 X10*3/uL (160-400); Red Blood Count 3.91 X10*6/uL (4.60-5.80); White Blood Count 14.4 X10*3/uL (4.8-10.8)
--- NOTE | 2023-04-25 00:37 | ED.CHESTPAIN ---
HPI - Chest Pain General Chief Complaint: Chest Pain Stated Complaint: CP Time Seen by Provider: 04/25/23 00:22 Source: patient Mode of arrival: ambulatory Limitations: no limitations History of Present Illness HPI narrative: 68-year-old male who presents emergency department for evaluation of chest pain. The patient states that he was getting ready for bed when he had a sudden onset of chest pain. He points to his left chest when asked to localize the pain. Describes the pain as a constant, sharp pain which was 7/10 at its worst. The pain did not radiate to his neck, jaw, arms or back. He felt dizzy with the pain. He denied diaphoresis, nausea, vomiting, shortness of breath. He states he did have a slight upset stomach prior to the onset of his chest pain. Patient was seen in the emergency department on 04/07/2023 for epigastric pain, chest pain, nausea, vomiting, diarrhea. Patient had congestive heart failure and an elevation of his troponin from 2.7 to 84.2. Patient was admitted to the hospital and had troponin trended up to 274.8. Patient was diagnosed with an NSTEMI with CHF. Echocardiogram revealed decreased LV systolic function with an EF of 30-35% with apical inferior , apical septal with mild inferior septal, mild anterior septal segment akinesis. Patient was transferred to [facility] according to his had a cardiac catheterization with no stentable lesions and the states that patient was referred back to his cardiology for medical management of his coronary disease Related Data Home Medications Medication Instructions Recorded Confirmed cholestyramine-aspartame 4 gram 4 g PO BID PRN Diarrhea 01/30/23 04/29/23 oral powder (Prevalite) dulaglutide 1.5 mg/0.5 mL 1.5 mg subcut HOUSER 01/30/23 04/29/23 subcutaneous pen injector polyethylene glycol 3350 17 17 g PO DAILY PRN Constipation 04/07/23 04/29/23 gram/dose oral powder (Miralax) rosuvastatin 40 mg tablet 40 mg PO BEDTIME 04/07/23 04/29/23 furosemide 40 mg tablet 40 mg PO DAILY 04/29/23 04/29/23 olmesartan 40 mg tablet 40 mg PO DAILY 04/29/23 04/29/23 Previous Rx's Medication Instructions Recorded pen needle, diabetic 31 gauge x #4 boxes 04/07/2101/03 (1st Tier Unifine Pentips) lancets 30 gauge (OneTouch Delica #300 ea 01/23/22 Plus Lancet) ezetimibe 10 mg tablet (Zetia) 10 mg PO DAILY #90 tabs 08/30/22 hydrochlorothiazide 25 mg tablet 25 mg PO DAILY 90 days #90 caps 09/29/22 amlodipine 5 mg tablet 5 mg PO DAILY #90 tabs 12/31/22 metoprolol tartrate 100 mg tablet 100 mg PO BID #180 tabs 12/31/22 blood sugar diagnostic (OneTouch #100 ea 01/29/23 Ultra Test strips) blood-glucose meter (OneTouch #1 ea 01/29/23 Ultra2 Meter) lancets (OneTouch UltraSoft #200 ea 01/29/23 Lancets) glipizide 5 mg tablet, extended 5 mg PO DAILY 30 days #90 tabs 03/29/23 release 24 hr aspirin 81 mg chewable tablet 81 mg PO DAILY #30 tabs 04/08/23 omeprazole 40 mg capsule,delayed 40 mg PO BID@0630,1630 #1 cap 04/08/23 release sucralfate 1 gram tablet 1 g PO QIDACHS #30 tabs 04/08/23 insulin glargine 100 unit/mL (3 23 unit (0.23 mL) subcut DAILY #15 04/10/23 mL) subcutaneous pen (Basaglar mL KwikPen U-100 Insulin) blood pressure monitor (Blood #1 ea 04/29/23 Pressure Kit) clopidogrel 75 mg tablet (Plavix) 75 mg PO DAILY #30 tabs 04/29/23 isosorbide mononitrate 30 mg 30 mg PO DAILY #30 tabs 04/29/23 tablet,extended release 24 hr mirtazapine 7.5 mg tablet 7.5 mg PO BEDTIME #30 tabs 04/29/23 Allergies Allergy/AdvReac Type Severity Reaction Status Date / Time olmesartan Allergy Unknown Diarrhea Verified 04/29/23 17:03 Review of Systems Review of Systems: Yes all other systems are reviewed and are negative [facility] Past Medical History [facility] Narrative: Past medical history: Reviewed below, recent NSTEMI with CHF on 04/07/2023. Social history: Patient is and his , Kath Rivas is here in the emergency department with him. Patient denies tobacco, alcohol and drug use. Medical History (Updated 04/29/23 @ 19:03 by Luke Albright MD) Anxiety and depression Coronary artery disease Diarrhea Generalized anxiety disorder GERD (gastroesophageal reflux disease) Humeral fracture Hypercholesterolemia Hypertension Leukocytosis Obesity (BMI 30-39.9) Screening for prostate cancer Type 2 diabetes mellitus with hyperglycemia Vitamin D deficiency Surgical History History of cholecystectomy History of colonoscopy History of coronary artery bypass graft History of endoscopic gastrointestinal surgery History of repair of rotator cuff History of tonsillectomy History of umbilical hernia repair Family History Family History Father Lung cancer Mother Diabetes Hypertension Social History Social History Household Members: Spouse Housing: House Do you presently have visiting nurse or other home services: No Alcohol intake: never Patient Tobacco Use Status: Never used Tobacco e-Cigarette/Vaping Use: Never Used Second Hand Smoke Exposure: No Advance Directives Date on File: 03/07/22 service: No Current occupational status: retired Cognitive needs: No Hearing needs: No Vision needs: Yes (glasses) Physical Exam Vital Signs: Vital Signs: Last Vital Signs Temp 96.9 F 04/25/23 02:00 Pulse 83 04/25/23 02:00 Resp 18 04/25/23 02:00 BP 153/53 H 04/25/23 02:00 Pulse Ox 94 04/25/23 02:00 O2 Del Method Nasal Cannula 04/25/23 02:00 O2 Flow Rate 2 04/25/23 02:00 BMI result Body Mass Index 28.1 Const: General: cooperative and no acute distress Orientation/consciousness: oriented to person and oriented to place Limitations: no limitations HEENT: Head: Yes normal to inspection, Yes normocephalic and Yes atraumatic Ears: external ears normal General nose exam: Normal external nose present Face and sinus: Yes normal facial exam Mouth: Normal oral and palatal mucosa present Throat: Yes posterior oropharynx normal Eyes: General: appearance normal, both eyes and all related structures Pupils: Equal, round and reactive pupils present Neck: Neck: Yes normal visual inspection, Yes no lymphadenopathy, Yes trachea midline and Yes supple Chest: Chest palpation & inspection: normal inspection of the chest and normal palpation of entire chest wall Resp: Effort & Inspection: normal respiratory effort and able to speak in complete sentences Auscultation: clear to auscultation bilaterally Cardio: Rate: regular rate Rhythm: regular rhythm Heart sounds: S1 normal heart sound present, S2 normal heart sound present and no murmurs GI: Inspection: Yes normal to inspection Palpation (GI): Soft to palpation, nontender and no guarding Auscultation: normal bowel sounds : General: Yes no CVA tenderness Back/Spine/Pelvis: Back: no CVA tenderness Skin: General skin exam: no rashes or lesions noted Neuro: General: oriented to person and oriented to place Cranial nerves: Yes CN's II-XII intact bilaterally and Yes Equal, round and reactive pupils present Cognition (Neuro): normal cognition Motor exam (neuro): 5/5 motor strength present throughout Extrem: Other: 1+ pitting edema to lower extremities, symmetric Psych: Appearance: grossly normal Speech and movement: Normal speech and movement present Affect: normal affect Attitude: cooperative Thought process: Normal thought process present Thought content: Normal thought content present Medications Administered Discontinued Medications Generic Name Dose Route Start Last Admin Trade Name Freq PRN Reason Stop Dose Admin Acetaminophen 975 mg 04/25/23 00:35 04/25/23 00:43 Acetaminophen 325 Mg Tablet PO 04/25/23 00:36 975 mg ONCE STA Administration Lorazepam 1 mg 04/25/23 00:35 04/25/23 00:43 Lorazepam 2 Mg/Ml Vial IVPUSH 04/25/23 00:36 1 mg STAT STA Administration Medical Decision Making Medical Decision Making [facility] Narrative: 68-year-old male with past medical history of CAD status post CABG in 1999, BPH, generalized anxiety disorder, history of gastroparesis, diabetes, HLD, HTN,recent NSTEMI with CHF on 04/07/2023 recent NSTEMI with CHF on 04/07/2023, who presents emergency department for evaluation left-sided chest pain which came on at rest approximately 45 minutes prior to coming to the emergency department. Pain was associated with dizziness. Pain lasted approximately 25 minutes the patient is pain-free at the time of evaluation in the emergency department. I ordered the following tests: CBC, BMP, liver panel, PT/INR, PTT, BNP, high sensitive troponin I now and in 3 hour, EKG, chest x-ray. The patient was anxious on presentation and was ordered to get Ativan 1 mg IV Differential Diagnosis Differential Diagnoses: The differential diagnosis associated with the presentation includes Differential diagnosis includes was not limited to STEMI, NSTEMI, congestive heart failure, esophageal spasm, electrolyte abnormality, anemia Admission/Observation Consideration of admission/observation: Escalation of care including admission/observation considered Lab Data MDM Lab Attestation statement: I reviewed the patient's lab results. 04/25/23 00:25 04/25/23 00:25 Labs: Lab Results 04/25/23 04/25/23 04/25/23 Range/Units 00:24 00:25 00:25 WBC 14.4 H (4.8-10.8) X10*3/uL RBC 3.91 L (4.60-5.80) X10*6/uL Hgb 10.5 L (14.0-18.0) g/dl Hct 32.6 L (42.0-52.0) % MCV 83.4 (80.0-98.0) fL MCH 26.9 L (27.0-33.0) pg MCHC 32.2 (31.0-36.0) g/dl RDW 14.0 (11.0-16.0) % Plt Count 320 D (160-400) X10*3/uL MPV 9.0 L (9.4-12.4) fL Immature Gran % (Auto) 0.8 H (0.0-0.4) % Neut % (Auto) 69.5 (45-73) % Lymph % (Auto) 15.3 L (20-40) % Polk % (Auto) 7.8 (2-11) % Eos % (Auto) 5.9 H (0-4) % Baso % (Auto) 0.7 (0-2) % Lymph # (Auto) 2.2 (1.2-4.9) X10*3/uL Polk # (Auto) 1.1 (0.1-1.2) X10*3/uL Eos # (Auto) 0.9 H (0.0-0.4) X10*3/uL Baso # (Auto) 0.1 (0.0-0.2) X10*3/uL Abs Immat Gran (auto) 0.12 H (0.00-0.03) X10*3/uL Absolute Neuts (auto) 10.0 H (2.0-8.3) x10*3/uL Absolute Nucleated RBC 0.000 (0.0-0.012) X10*3/uL Nucleated RBC % (auto) 0.0 (0.0-0.2) /100WBC Sodium 142 (135-145) mmol/L Potassium 4.1 (3.3-5.1) mmol/L Chloride 100 (96-108) mmol/L Carbon Dioxide 33 H (22-29) mmol/L Anion Gap 13 (12-20) BUN 19 H (9-16) mg/dL Creatinine 1.56 H (0.5-1.4) mg/dL Estim Creat Clear Calc 48.6 Estimated GFR 44 Random Glucose 123 H (60-115) mg/dL Calcium 9.8 (8.4-10.2) mg/dL Total Bilirubin 0.3 (0.0-1.0) mg/dL Direct Bilirubin 0.1 (0.0-0.5) mg/dL AST 30 (5-37) U/L ALT 44 H (0-40) U/L Alkaline Phosphatase 110 (39-117) U/L Troponin I High Sens 10.8 D (<3.5-35.0) ng/L B-Natriuretic Peptide (<100) pg/mL Total Protein 6.7 (6.5-8.0) g/dL Albumin 3.5 (3.5-5.0) g/dL 04/25/23 04/25/23 Range/Units 00:25 03:34 WBC (4.8-10.8) X10*3/uL RBC (4.60-5.80) X10*6/uL Hgb (14.0-18.0) g/dl Hct (42.0-52.0) % MCV (80.0-98.0) fL MCH (27.0-33.0) pg MCHC (31.0-36.0) g/dl RDW (11.0-16.0) % Plt Count (160-400) X10*3/uL MPV (9.4-12.4) fL Immature Gran % (Auto) (0.0-0.4) % Neut % (Auto) (45-73) % Lymph % (Auto) (20-40) % Polk % (Auto) (2-11) % Eos % (Auto) (0-4) % Baso % (Auto) (0-2) % Lymph # (Auto) (1.2-4.9) X10*3/uL Polk # (Auto) (0.1-1.2) X10*3/uL Eos # (Auto) (0.0-0.4) X10*3/uL Baso # (Auto) (0.0-0.2) X10*3/uL Abs Immat Gran (auto) (0.00-0.03) X10*3/uL Absolute Neuts (auto) (2.0-8.3) x10*3/uL Absolute Nucleated RBC (0.0-0.012) X10*3/uL Nucleated RBC % (auto) (0.0-0.2) /100WBC Sodium (135-145) mmol/L Potassium (3.3-5.1) mmol/L Chloride (96-108) mmol/L Carbon Dioxide (22-29) mmol/L Anion Gap (12-20) BUN (9-16) mg/dL Creatinine (0.5-1.4) mg/dL Estim Creat Clear Calc Estimated GFR Random Glucose (60-115) mg/dL Calcium (8.4-10.2) mg/dL Total Bilirubin (0.0-1.0) mg/dL Direct Bilirubin (0.0-0.5) mg/dL AST (5-37) U/L ALT (0-40) U/L Alkaline Phosphatase (39-117) U/L Troponin I High Sens 8.4 (<3.5-35.0) ng/L B-Natriuretic Peptide 169 H (<100) pg/mL Total Protein (6.5-8.0) g/dL Albumin (3.5-5.0) g/dL Independent Interpretation I performed an independent interpretation of an: EKG Interpretation: My independent interpretation of the patient's 12 EKG done at 00:10 hours is as follows: Normal sinus rhythm with a rate of 87, normal WI interval, and normal Q RS duration. Prolonged QTC of 488 milliseconds, Q-wave in lead 3, no ST segment elevation, no ST segment depression, inverted T-waves in V1 and V2. Compared to EKG dated 04/25/2023 Q-wave in 3 is old, inverted T-waves V1 and V2 are old as well pain Radiology Impression Discussion of test interpretation with radiology: I have reviewed the radiologist's reading. Radiologist Impression: XR chest 1V IMPRESSION: No acute findings. Dictated By:Deo Christie MD Independent Historian Clinical information obtained from an independent historian. 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 See Rx Instructions .Route Qty: 1 0RF Rx Instructions: As directed (DME) OneTouch Ultra Test Strip See Rx Instructions .Route Qty: 100 3RF Rx Instructions: As directed (DME) lancets [OneTouch UltraSoft Lancets] [facility] See Rx Instructions .Route Qty: 200 1RF Rx Instructions: Testing 4 times a day glipizide 5 mg tablet extended release 24hr 5 mg PO DAILY 30 Days Qty: 90 3RF insulin glargine [Basaglar KwikPen U-100 Insulin] 100 unit/mL (3 mL) insulin pen 23 unit subcut DAILY Qty: 15 3RF Prevalite 4 gram powder 4 g PO BID PRN (Reason: Diarrhea) Rx Instructions: 4 grams 2 times a day; DISSOLVED IN WATER dulaglutide 1.5 mg/0.5 mL pen injector 1.5 mg subcut HOUSER rosuvastatin 40 mg tablet 40 mg PO BEDTIME polyethylene glycol 3350 [Miralax] 17 gram/dose Powder 17 g PO DAILY PRN (Reason: Constipation) sucralfate 1 gram Tablet 1 g PO QIDACHS Qty: 30 0RF omeprazole 40 mg Capsule,Delayed Release(Dr/Ec) 40 mg PO BID@0630,1630 Qty: 1 0RF aspirin 81 mg Tablet,Chewable 81 mg PO DAILY Qty: 30 0RF (DME) lancets [OneTouch Delica Plus Lancet] 30 gauge misc See Rx Instructions .Route Qty: 300 3RF Rx Instructions: As directed check the BS TID ezetimibe [Zetia] 10 mg tablet 10 mg PO DAILY Qty: 90 2RF furosemide 40 mg tablet 40 mg PO DAILY olmesartan 40 mg tablet 40 mg PO DAILY clopidogrel [Plavix] 75 mg tablet 75 mg PO DAILY Qty: 30 4RF isosorbide mononitrate 30 mg tablet extended release 24 hr 30 mg PO DAILY Qty: 30 2RF (DME) blood pressure monitor [Blood Pressure Kit] Kit See Rx Instructions .ROUTE .MEDSUPPLY Qty: 1 0RF Rx Instructions: As directed mirtazapine 7.5 mg tablet 7.5 mg PO BEDTIME Qty: 30 1RF Interventions: ED Discharge Assessment Last Done: 04/25/23 04:46 Discharge Date/Time: 04/25/23 04:46
[2023-04-25 00:48] LABS: Anion Gap 13 (12-20)
[2023-04-25 00:50] LABS: Alanine Aminotransferase 44 U/L (0-40); Albumin Level 3.5 g/dL (3.5-5.0); Alkaline Phosphatase 110 U/L (39-117); Aspartate Amino Transferase 30 U/L (5-37); Bilirubin Direct 0.1 mg/dL (0.0-0.5); Bilirubin Total 0.3 mg/dL (0.0-1.0); Blood Urea Nitrogen 19 mg/dL (9-16); Calcium 9.8 mg/dL (8.4-10.2); Carbon Dioxide 33 mmol/L (22-29); Chloride 100 mmol/L (96-108); Creatinine Clr Calc Pharmacy 48.6; Estimated Glomerular Filt Rate 44; Glucose Random 123 mg/dL (60-115); Potassium 4.1 mmol/L (3.3-5.1); Sodium 142 mmol/L (135-145); Total Protein 6.7 g/dL (6.5-8.0)
[2023-04-25 00:51] LABS: Troponin-I High Sensitivity 10.8 ng/L (<3.5-35.0)
[2023-04-25 01:11] LABS: B Type Natriuretic Peptide 169 pg/mL (<100)
[2023-04-25 02:00] VITALS: BP 153/53; PULSE 83; RESP 18; TEMP 36.1; O2SAT 94
[2023-04-25 03:58] LABS: Troponin-I High Sensitivity 8.4 ng/L (<3.5-35.0)
== END 2023-04-25 04:46 | disposition home or self-care (01) ==
PROVIDERS: Emergency Medicine Emergency Medical Services; Emergency Provider Internal Medicine; PCP Internal Medicine
DX: R07.9 Chest pain, unspecified (principal); R60.0 Localized edema; D64.9 Anemia, unspecified; E11.9 Type 2 diabetes mellitus without complications; I11.0 Hypertensive heart disease with heart failure; I50.22 Chronic systolic (congestive) heart failure; E78.00 Pure hypercholesterolemia, unspecified; Z79.4 Long term (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; Z79.899 Other long term (current) drug therapy; Z79.82 Long term (current) use of aspirin
CPT/HCPCS: 36415; 71045; 80048; 80076; 83880; 84484; 85025; 93005; 99283; 99285; J2060

== ENCOUNTER 2023-04-29 16:56 | Outpatient (AMB) | payer MEDICARE, SELFPAY ==
--- NOTE | 2023-04-29 17:02 | A.OFFPC_ITS ---
Vital Signs 04/29/23 17:03 Height 5 ft 9 in Weight 204 lb BMI 30.1 BP 148/72 H Blood Pressure Location Lt brachial Position Sitting Pulse 87 Pulse Source Pulse Oximeter Pulse Oximetry (%) 97 Oxygen Delivery Method Room Air Intake Visit Reasons: DM Allergies olmesartan Allergy (Unknown, Verified 04/29/23 17:03) Diarrhea Medication List - Last Reconciled 04/29/23 by Luke Albright MD amlodipine 5 mg PO DAILY aspirin 81 mg PO DAILY blood sugar diagnostic (Douguouch Ultra Test strips) As directed blood-glucose meter (Douguouch Ultra2 Meter) As directed cholestyramine-aspartame 4 gram (Prevalite) 4 grams PO BID PRN dulaglutide 1.5 mg subcut HOUSER ezetimibe (Zetia) 10 mg PO DAILY furosemide 40 mg PO DAILY glipizide ER 5 mg PO DAILY 30 days hydrochlorothiazide 25 mg PO DAILY 90 days insulin glargine (Basaglar KwikPen U-100 Insulin) 23 units (0.23 mL) subcut DAILY lancets (Kee SquareTouch UltraSoft Lancets) Testing 4 times a day lancets (Kee SquareTouch Delica Plus Lancet) As directed check the BS TID metoprolol tartrate 100 mg PO BID olmesartan 40 mg PO DAILY omeprazole 40 mg PO BID@0630,1630 pen needle, diabetic (1st Tier Unifine Pentips) As directed inject insulin 4 times a day polyethylene glycol 3350 (Miralax) 17 grams PO DAILY PRN rosuvastatin 40 mg PO BEDTIME sucralfate 1 g PO QIDACHS Tobacco use date assessed: 02/26/23 Fall risk assessment: No Falls in past year Last assessed Fall Risk: 04/29/23 Dental Screening Dental Screen Date: 04/29/23 Did you have a dental visit in the last 12 months?: No Did you have a dental problem in the last 6 months where you did not have access to dental care?: No Was dental information given to patient?: No HPI DM HPI Details 68-year-old obese male with diabetes mellitus hypercholesterolemia hypertension coronary artery disease frequency coming in for follow-up. Last seen in November 2022 referred for hearing test ultrasound requested and referral to Endocrinology. Patient was in the ER in April [address] elevation [place] with Congestive heart failure 04/07/2023 ejection fraction of 30 35% status post cardiac catheterization March 2023 multivessel coronary artery disease advised medical management Plavix and Imdur echocardiogram meanwhile patient did see oncology also being worked up for the leukocytosis. Patient complains of lower extremity swelling bilateral and the right 1 is worse than the left. Concern that post hospitalization started to have this problem. No ultrasound was done from that time. Otherwise patient has no nausea no vomiting no fevers has some shortness of breath on exertion but discussed cardiomyopathy with ejection fraction low. Patient has seen Cardiology and they will have to bring in the list of medications so we can clarify and reconcile. [facility] Medical History (Updated 04/29/23 @ 18:26 by Luke Albright MD) Anxiety and depression Coronary artery disease Diarrhea Generalized anxiety disorder GERD (gastroesophageal reflux disease) Humeral fracture Hypercholesterolemia Hypertension Leukocytosis Obesity (BMI 30-39.9) Screening for prostate cancer Type 2 diabetes mellitus with hyperglycemia Vitamin D deficiency Surgical History History of cholecystectomy History of colonoscopy History of coronary artery bypass graft History of endoscopic gastrointestinal surgery History of repair of rotator cuff History of tonsillectomy History of umbilical hernia repair Family History Father Lung cancer Mother Diabetes Hypertension Social History Household Members: Spouse Housing: House Do you presently have visiting nurse or other home services: No Alcohol intake: never Patient Tobacco Use Status: Never used Tobacco e-Cigarette/Vaping Use: Never Used Second Hand Smoke Exposure: No Advance Directives Date on File: 03/07/22 service: No Current occupational status: retired Cognitive needs: No Hearing needs: No Vision needs: Yes (glasses) Questionnaire PHQ-9 Over the last 2 weeks, how often have you been bothered by any of the following problems? 1. Little interest or pleasure in doing things: several days 2. Feeling down, depressed, or hopeless: several days 3. Trouble falling or staying asleep, or sleeping too much: several days 4. Feeling tired or having little energy: several days 5. Poor appetite or overeating: several days 6. Feeling bad about yourself - or that you are a failure or have let yourself or your family down: several days 7. Trouble concentrating on things, such as reading the newspaper or watching television: several days 8. Moving or speaking so slowly that other people could have noticed. Or the opposite - being so fidgety or restless that you have been moving around a lot more than usual: several days 9. Thoughts that you would be better off or of hurting yourself in some way: not at all Total score: 8 Depression Screening Interpretation: Positive Source: Developed by Drs. Isaiah Han, Mike Neal and colleagues, with an educational filippo from [employer]. Thrive Questionnaire Date Thrive assessed: 04/08/23 AUDIT C Alcohol Use Questionnaire (AUDIT-C) 1. How often do you have a drink containing alcohol?: Never Total Score: 0 Score Reviewed/Action Taken: Yes (Reviewed no action needed at this time) RHIANNA-7 AMB Questionnaire RHIANNA-7 Date RHIANNA - 7 assessed: 12/17/22 Source: Developed by Drs. Isaiah Han, Shanna Otero, Mike Flores and colleagues, with an educational filippo from [employer]. Physical exam (Primary Care) Vital Signs: Last Vital Signs Pulse 87 04/29/23 17:03 BP 148/72 H 04/29/23 17:03 Pulse Ox 97 04/29/23 17:03 Oxygen Delivery Method Room Air 04/29/23 17:03 BMI result Body Mass Index 30.1 Tobacco/Smoking Status: Tobacco use Status Tobacco use date assessed 02/26/23 04/29/23 17:06 Patient Tobacco Use Status Never used Tobacco 04/29/23 17:06 e-Cigarette/Vaping Use Never Used 04/29/23 17:06 PHQ-9: PHQ-9 Score PHQ-9: Total score 8 04/29/23 17:18 Depression Screening Interpretation: Positive Thrive Assessment: Date of Thrive Assessment Date Thrive assessed 04/08/23 04/29/23 17:06 Const General: alert; No acute distress Eyes Conjunctivae: conjunctivae normal Resp Auscultation: clear to auscultation bilaterally Cardio Rate: regular rate Rhythm: regular rhythm GI Inspection: Yes normal to inspection Extrem General: Yes normal to inspection and No edema Results AMB Hemoglobin A1c AMB Hemoglobin A1c 6.1 % Last Edit by Tequila Perdue CMA on 04/29/23 17 :19 Results Reviewed Results Reviewed: Laboratory Last Values Hgb A1c (Clinic) 6.1 % (4.0-6.0) H 04/29/23 17:07 Assessment and Plan Assessment & Plan (1) NSTEMI (non-ST elevated myocardial infarction): Comment: March 2023 Echocardiogram March 2023 EF 30-35% Code(s): I21.4 - Non-ST elevation (NSTEMI) myocardial infarction Plan: Patient is followed up by Cardiology and patient goes to cardiac rehab (2) Type 2 diabetes mellitus with hyperglycemia: Code(s): E11.65 - Type 2 diabetes mellitus with hyperglycemia Qualifiers: Diabetes mellitus group home insulin use: with group home use Qualified Code(s): E11.65 - Type 2 diabetes mellitus with hyperglycemia; Z79.4 - long-term (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 Plan: Decrease the amount of carbohydrate intake, pasta, bread, rice and potatoes are all sugar and that is aside from all the sweet stuff, remember that fruits are good but they are Sweet also. Hemoglobin A1c goal of less than 7.0 (3) Hypercholesterolemia: Code(s): E78.00 - Pure hypercholesterolemia, unspecified Plan: Avoid fried foods, chicken skin, eggs, butter margarine, pastries and meat. Be it pork or beef they have a lot of cholesterol LDL goal of less than 70 and triglyceride of less than 150 (4) Obesity (BMI 30-39.9): Code(s): E66.9 - Obesity, unspecified Plan: Diet and exercise (5) Coronary artery disease: Comment: CABG Code(s): I25.10 - Atherosclerotic heart disease of [place] coronary artery without angina pectoris Qualifiers: Coronary Disease-Associated Artery/Lesion type: [place] artery [place] vs. transplanted heart: [place] heart Associated angina: without angina Qualified Code(s): I25.10 - Atherosclerotic heart disease of [place] coronary artery without angina pectoris Plan: Control the cholesterol, weight, blood pressure, diabetes (6) Hypertension: Code(s): I10 - Essential (primary) hypertension Qualifiers: Hypertension type: essential hypertension Qualified Code(s): I10 - Essential (primary) hypertension Plan: Continue with blood pressure medication. Decrease salt intake and exercise (7) Leukocytosis: Code(s): D72.829 - Elevated white blood cell count, unspecified Plan: Patient is being worked up by Hematology Oncology (8) Leg swelling: Code(s): M79.89 - Other specified soft tissue disorders (9) Obstructive sleep apnea (adult) (pediatric): Code(s): G47.33 - Obstructive sleep apnea (adult) (pediatric) (10) Generalized anxiety disorder: Code(s): F41.1 - Generalized anxiety disorder Orders: Orders US venous duplex LE BI Today M79.89 - Other specified soft tissue disorders RT home sleep study Today G47.33 - Obstructive sleep apnea (adult) (pediatric) AMB Hemoglobin A1c Today Z13.9 - Encounter for screening, unspecified Medications: New clopidogrel (Plavix) 75 mg PO DAILY 30 tabs 4RF isosorbide mononitrate ER 30 mg PO DAILY 30 tabs 2RF blood pressure monitor (Blood Pressure Kit) As directed 1 ea 0RF I10 - Essential (primary) hypertension mirtazapine 7.5 mg PO BEDTIME 30 tabs 1RF F41.1 - Generalized anxiety disorder Discontinued dulaglutide 1.5 mg (0.5 mL) subcut QWEEK 90 days 6.5 mL 3RF E11.65 - Type 2 diabetes mellitus with hyperglycemia, Z79.4 - director long term care (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 cholestyramine-aspartame 4 gram 4 grams 2 times a day; 90 days 231 grams 11RF E78.00 - Pure hypercholesterolemia, unspecified rosuvastatin 40 mg PO DAILY 90 days 90 tabs 1RF Coding Level of Care Code Est Pt Level 4 (38112) Diagnoses NSTEMI (non-ST elevated myocardial infarction) I21.4 Type 2 diabetes mellitus with hyperglycemia E11.65; Z79.4 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 transplanted heart: [place] heart Associated angina: without angina Hypertension I10 Hypertension type: essential hypertension Leukocytosis D72.829 Leg swelling M79.89 Obstructive sleep apnea (adult) (pediatric) G47.33 Generalized anxiety disorder F41.1 Additional Codes PHQ-9 - 08483 - PHQ-9 Billing: Y ([id number])
[2023-04-29 17:03] VITALS: BP 148/72; PULSE 87; O2SAT 97; BMI 30.1
== END 2023-04-29 18:39 | disposition home or self-care (01) ==
PROVIDERS: Visit Provider Internal Medicine
DX: E11.65 Type 2 diabetes mellitus with hyperglycemia (principal); Z79.4 Long term (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; I21.4 Non-ST elevation (NSTEMI) myocardial infarction; E78.00 Pure hypercholesterolemia, unspecified; E66.9 Obesity, unspecified; I10 Essential (primary) hypertension; D72.829 Elevated white blood cell count, unspecified; M79.89 Other specified soft tissue disorders; G47.33 Obstructive sleep apnea (adult) (pediatric); F41.1 Generalized anxiety disorder; Z13.9 Encounter for screening, unspecified
CPT/HCPCS: 83036; 99214

== ENCOUNTER 2023-04-30 14:06 | Outpatient (REF) | payer MEDICARE, SELFPAY ==
--- NOTE | ~2023-04-30 | US_ITS ---
EXAMINATION: US VENOUS ULTRASOUND WITH DOPPLER LOWER EXTREMITY, BILATERAL CLINICAL INFORMATION: Bilateral lower extremity edema COMPARISON: None available. TECHNIQUE: Ultrasound of the deep veins is performed from the hip to the calf with compression sonography and color and pulse Doppler assessment. Spectral analysis with color-flow imaging is performed. FINDINGS: RIGHT: There is normal venous compression and respiratory variation and augmented flow. The visualized common femoral vein, superficial femoral vein, profunda femoral vein, popliteal vein, and the trifurcation region shows no evidence of deep venous thrombosis. There is no significant popliteal fossa cyst. Prominent lymph node is seen in the right groin LEFT: There is normal venous compression and respiratory variation and augmented flow. The visualized common femoral vein, superficial femoral vein, profunda femoral vein, popliteal vein, and the trifurcation region shows no evidence of deep venous thrombosis. There is no significant popliteal fossa cyst. If the patient's symptoms persist, followup ultrasound in 5 days 7 days might be of value to exclude proximal propagation from a non-visualized calf vein. US/US venous duplex LE BI IMPRESSION: No DVT demonstrated in the bilateral lower extremity.
== END 2023-04-30 14:07 | disposition home or self-care (01) ==
LOC: HO.US 14:06
PROVIDERS: PCP Internal Medicine; Visit Provider Internal Medicine
DX: R60.0 Localized edema (principal)
CPT/HCPCS: 93970

== ENCOUNTER 2023-05-03 09:27 | Outpatient (AMB) | payer MEDICARE, SELFPAY ==
[2023-05-03 09:31] VITALS: BP 136/80; PULSE 89; O2SAT 97; BMI 29.2
--- NOTE | 2023-05-03 09:31 | A.OFFPC_ITS ---
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: No Accompanied by: Self / Same As Patient Allergies olmesartan Allergy (Unknown, Verified 05/03/23 09:31) Diarrhea Tobacco use date assessed: 05/03/23 Fall risk assessment: 1 Fall in past year Last assessed Fall Risk: 05/03/23 Dental Screening Dental Screen Date: 05/03/23 Did you have a dental visit in the last 12 months?: No Did you have a dental problem in the last 6 months where you did not have access to dental care?: No Was dental information given to patient?: No HPI HPI Comments History of Present Illness Details 68-year-old male past medical history significant for hypertension, CAD, hypercholesteremia type 2 diabetes mellitus, anxiety depression, CHF, NSTEMI, cognitive impairment and gastroparesis. Patient presents today for bilateral ear flushing. Patient states going for a hearing test this afternoon. Patient tolerated ear flushing well, canals clear TMs pearly and intact. Patient denied any lightheadedness, dizziness or pain. [facility] Medical History (Updated 04/29/23 @ 19:03 by Luke Albright MD) Anxiety and depression Coronary artery disease Diarrhea Generalized anxiety disorder GERD (gastroesophageal reflux disease) Humeral fracture Hypercholesterolemia Hypertension Leukocytosis Obesity (BMI 30-39.9) Screening for prostate cancer Type 2 diabetes mellitus with hyperglycemia Vitamin D deficiency Surgical History History of cholecystectomy History of colonoscopy History of coronary artery bypass graft History of endoscopic gastrointestinal surgery History of repair of rotator cuff History of tonsillectomy History of umbilical hernia repair Family History Father Lung cancer Mother Diabetes Hypertension Social History Household Members: Spouse Housing: House Do you presently have visiting nurse or other home services: No Alcohol intake: never Patient Tobacco Use Status: Never used Tobacco e-Cigarette/Vaping Use: Never Used Second Hand Smoke Exposure: No Advance Directives Date on File: 03/07/22 service: No Current occupational status: retired Cognitive needs: No Hearing needs: No Vision needs: Yes (glasses) Questionnaire PHQ-9 Over the last 2 weeks, how often have you been bothered by any of the following problems? 1. Little interest or pleasure in doing things: several days 2. Feeling down, depressed, or hopeless: several days 3. Trouble falling or staying asleep, or sleeping too much: several days 4. Feeling tired or having little energy: several days 5. Poor appetite or overeating: several days 6. Feeling bad about yourself - or that you are a failure or have let yourself or your family down: several days 7. Trouble concentrating on things, such as reading the newspaper or watching television: several days 8. Moving or speaking so slowly that other people could have noticed. Or the opposite - being so fidgety or restless that you have been moving around a lot more than usual: several days 9. Thoughts that you would be better off or of hurting yourself in some way: not at all Total score: 8 Depression Screening Interpretation: Positive Source: Developed by Drs. Isaiah Han, Shanna Otero, Mike Flores and colleagues, with an educational filippo from [employer]. Thrive Questionnaire Date Thrive assessed: 05/03/23 I am a: Patient What is your living situation today?: I have a steady place to live Within the past 12 months, did the food you bought not last and you didn't have the money to get more?: Never true Within the past 12 months, did you worry whether your food would run out before you got money to buy more?: Never true Do you have trouble paying for medicines?: No Do you have trouble getting transportation to medical appointments?: No Do you have trouble paying your heating and electricity bill?: No Do you have trouble taking care of your child, family member or friend?: No Do you have trouble with day-to-day activities such as bathing, preparing meals, shopping, managing finances, etc.?: No Are you currently unemployed and looking for a job?: No Are you interested in more education?: No Please select the resources that you would like help with: None Currently or been in a relationship where the following occur: no concerns reported AUDIT C Alcohol Use Questionnaire (AUDIT-C) 1. How often do you have a drink containing alcohol?: Never Total Score: 0 Score Reviewed/Action Taken: Yes (Reviewed no action needed at this time) RHIANNA-7 AMB Questionnaire RHIANNA-7 Date RHIANNA - 7 assessed: 05/03/23 Feeling nervous, anxious, or on edge: 0 = Not at all Not being able to stop or control worryin = Not at all Worrying too much about different things: 0 = Not at all Trouble relaxin = Not at all Being so restless that it is hard to sit still: 0 = Not at all Becoming easily annoyed or irritable: 0 = Not at all Feeling afraid as if something awful might happen: 0 = Not at all Total RHIANNA-7 score (0-4 normal; 5-9 mild; 10-14 moderate; 15-21 severe): 0 Source: Developed by Drs. Isaiah Han, Shanna Otero, Mike Flores and colleagues, with an educational filippo from [employer]. Review of Systems Const Denies chills, Denies fatigue, Denies fever(s) and Denies poor appetite Eyes Denies no additional complaints ENT Denies vertigo and Denies otalgia Card Denies dyspnea Resp Denies cough and Denies dyspnea GI Denies change in stool character, Denies constipation, Denies diarrhea, Denies nausea and Denies vomiting Neuro Denies vertigo Endo Denies fatigue Physical exam (Primary Care) Vital Signs: Last Vital Signs Pulse 89 05/03/23 09:31 BP 136/80 05/03/23 09:31 Pulse Ox 97 05/03/23 09:31 Oxygen Delivery Method Room Air 05/03/23 09:31 BMI result Body Mass Index 29.2 Tobacco/Smoking Status: Tobacco use Status Tobacco use date assessed 05/03/23 05/03/23 09:37 Patient Tobacco Use Status Never used Tobacco 05/03/23 09:37 e-Cigarette/Vaping Use Never Used 05/03/23 09:37 PHQ-9: PHQ-9 Score PHQ-9: Total score 8 05/03/23 09:56 Depression Screening Interpretation: Positive Thrive Assessment: Date of Thrive Assessment Date Thrive assessed 05/03/23 05/03/23 09:37 Currently or been in a relationship where the following occur: no concerns reported Const General: cooperative and healthy appearing; No acute distress HENMT Head: Yes normocephalic and Yes atraumatic Ears: external ears normal and TM's normal bilaterally General nose exam: Normal external nose present Cardio Rate: regular rate Rhythm: regular rhythm Peripheral pulses: radial pulses present and dorsalis pedis present Office Procedures Cerumen Removal From which ear canal was the cerumen removed: bilateral Removal: irrigation Notes: patient tolerated procedure well, no complications and ear canal clear [id number] Irrigation/Lavage Assessment and Plan Assessment & Plan (1) Hearing difficulty: Code(s): H91.90 - Unspecified hearing loss, unspecified ear Plan: Patient has hearing test scheduled for this afternoon. (2) Bilateral impacted cerumen: Code(s): H61.23 - Impacted cerumen, bilateral Plan: Bilateral ear lavage completed patient tolerated procedure well denies any lightheadedness, dizziness or ear pain. Canals clear and TMs intact following ear lavage. Plan Keep scheduled follow up with pcp Medications: Discontinued dulaglutide 1.5 mg (0.5 mL) subcut QWEEK 90 days 6.5 mL 3RF E11.65 - Type 2 diabetes mellitus with hyperglycemia, Z79.4 - penitentiary (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 cholestyramine-aspartame 4 gram 4 grams 2 times a day; 90 days 231 grams 11RF E78.00 - Pure hypercholesterolemia, unspecified rosuvastatin 40 mg PO DAILY 90 days 90 tabs 1RF Coding Level of Care Code Est Pt Level 3 (13874) Diagnoses Hearing difficulty H91.90 Bilateral impacted cerumen H61.23 CPT Codes Office Procedure - CPT: 20787-Gsa Irrigation/Lavage ([id number]) Additional Codes PHQ-9 - 61957 - PHQ-9 Billing: Y ([id number])
== END 2023-05-03 09:58 | disposition home or self-care (01) ==
PROVIDERS: PCP Internal Medicine; Visit Provider Nurse Practitioner Family
DX: H61.23 Impacted cerumen, bilateral (principal)
CPT/HCPCS: 69209; 99213

== ENCOUNTER 2023-05-03 14:21 | Outpatient (REF) | payer MEDICARE, SELFPAY ==
--- NOTE | 2023-05-06 09:05 | MHC.AU.HA1 ---
Hearing Aid Evaluation Date of Visit: 05/03/23 Historical Information:Description of Hearing: Right Ear: Severe mixed hearing loss; Left Ear: Moderately-severe rising to moderate sloping to severe mixed hearing loss Current personal amplification information: Phonak Virto [id number] fit in October 2014 for right ear only Summary: Divya returned to retest his hearing following wax removal. Hearing is stable compared to evaluation on 04/01/2023 showing a significant decrease with an added conductive component compared to his evaluation from July 2014. Recommended medical consult with ENT (see audio). Divya did not bring his current hearing aid to this appointment. He has reportedly not been wearing it due to high battery drain. He is now interested in rechargeable hearing aids. Discussed pros and cons of custom vs RITE vs BTE. Right ear is close to edge of fitting range for foc.us custom rechargeable. Recommended earmolds for RITE or BTE. 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 Provided li list. Plan of Care: Patient is not interested in pursuing new amplification at this time. Action Taken/Action Needed: Divya would like consult with ENT for medical clearance prior to pursuing amplification. He will call to schedule full hearing aid evaluation following ENT consultation. Primary Diagnosis: H90.6 Mixed Hearing Loss, Bilateral Secondary Diagnosis: H69.93 Unspecified Eustachian Tube Dysfunction, Bilateral Signature: Provider: Tiffanie Garcia, [facility]
== END 2023-05-03 14:22 | disposition home or self-care (01) ==
LOC: HO.HAP 14:21
PROVIDERS: Visit Provider Internal Medicine
DX: Z46.1 Encounter for fitting and adjustment of hearing aid (principal); H91.90 Unspecified hearing loss, unspecified ear
CPT/HCPCS: 92552; 92567

== ENCOUNTER 2023-05-08 13:46 | Outpatient (AMB) | payer MEDICARE, SELFPAY ==
--- NOTE | 2023-05-08 13:47 | A.OFFVIS_ITS ---
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 Accompanied by: Spouse Allergies olmesartan Allergy (Unknown, Verified 05/08/23 13:51) Diarrhea Medication List - Last Reconciled 05/08/23 by Kenny Clark MD amlodipine 5 mg PO DAILY aspirin 81 mg PO DAILY blood pressure monitor (Blood Pressure Kit) As directed blood sugar diagnostic (YChartsTouch Ultra Test strips) As directed blood-glucose meter (YChartsTouch Ultra2 Meter) As directed cholestyramine-aspartame 4 gram (Prevalite) 4 grams PO BID PRN clopidogrel (Plavix) 75 mg PO DAILY dulaglutide 1.5 mg subcut HOUSER ezetimibe (Zetia) 10 mg PO DAILY furosemide 40 mg PO DAILY glipizide ER 5 mg PO DAILY 30 days insulin glargine (Basaglar KwikPen U-100 Insulin) 23 units (0.23 mL) subcut DAILY isosorbide mononitrate ER 30 mg PO DAILY lancets (YChartsTouch UltraSoft Lancets) Testing 4 times a day lancets (OneTouch Delica Plus Lancet) As directed check the BS TID metoprolol tartrate 100 mg PO BID mirtazapine 7.5 mg PO BEDTIME olmesartan 40 mg PO DAILY omeprazole 40 mg PO BID@0630,1630 pen needle, diabetic (1st Tier Unifine Pentips) As directed inject insulin 4 times a day polyethylene glycol 3350 (Miralax) 17 grams PO DAILY PRN rosuvastatin 40 mg PO BEDTIME sucralfate 1 g PO QIDACHS HPI HPI Comments History of Present Illness Details Divya returns for follow-up after recent hospitalization. He was recently seen in the [place] due to chest discomfort and at that time, had elevated troponins. Echocardiogram at shown cardiomyopathy. He was transferred to [facility] and underwent cardiac catheterization. There is no formal report yet but upon discussion with Dr. Brownlee would to the procedure, he did not have any good targets for interventions. Hence discharged on medical therapy. He is mostly doing okay according to his . No recent angina after discharge. Some leg swelling and it seems he was put on diuretics but he also had abnormal kidney function. Otherwise, seems to be getting along okay. There is also history of recent GI bleeding earlier this year. Endoscopy then had shown gastric ulcers. [facility] Medical History (Updated 05/08/23 @ 14:12 by Kenny Clark MD) Anxiety and depression Coronary artery disease Diarrhea Generalized anxiety disorder GERD (gastroesophageal reflux disease) Humeral fracture Hypercholesterolemia Hypertension Leukocytosis Obesity (BMI 30-39.9) Screening for prostate cancer Type 2 diabetes mellitus with hyperglycemia Vitamin D deficiency Surgical History History of cholecystectomy History of colonoscopy History of coronary artery bypass graft History of endoscopic gastrointestinal surgery History of repair of rotator cuff History of tonsillectomy History of umbilical hernia repair Family History Father Lung cancer Mother Diabetes Hypertension Social History Household Members: Spouse Housing: House Do you presently have visiting nurse or other home services: No Alcohol intake: never Patient Tobacco Use Status: Never used Tobacco e-Cigarette/Vaping Use: Never Used Second Hand Smoke Exposure: No Advance Directives Date on File: 03/07/22 service: No Current occupational status: retired Cognitive needs: No Hearing needs: No Vision needs: Yes (glasses) Review of Systems Const Denies weakness ENT Denies dizziness Card Denies chest pain, Denies chest pain with activity, Denies syncope, Denies rapid heart rate, Denies pedal edema, Denies edema, Denies leg edema, Denies lightheadedness, Denies palpitations, Denies dyspnea, Denies dyspnea on exertion and Denies orthopnea Resp Denies cough, Denies dyspnea and Denies dyspnea on exertion GI Denies hematochezia and Denies change in stool character Musc Denies abnormal gait, Denies muscle cramps, Denies muscle weakness, Denies numbness, Denies radiating pain into limb and Denies tingling Neuro Denies abnormal gait, Denies dizziness, Denies syncope, Denies numbness, Denies tingling and Denies weakness Endo Denies palpitations Physical Exam Vital Signs: Last Vital Signs Pulse 96 05/08/23 13:49 BP 90/54 L 05/08/23 13:49 BMI result Body Mass Index 28.6 Const General: comfortable and no acute distress Orientation/consciousness: patient oriented x3 HEENT Other: Unremarkable Head: Yes normal to inspection Neck Neck: Yes normal visual inspection Chest Chest palpation & inspection: normal inspection of the chest Resp Auscultation: clear to auscultation bilaterally Cardio Palpation: normal PMI Heart sounds: S1 normal heart sound present, S2 normal heart sound present, no gallops, no murmurs and no rubs GI Palpation (GI): Soft to palpation Back/Spine/Pelvis Other: unremarkable Skin General skin exam: no rashes or lesions noted Neuro General: patient oriented x3 Extrem General: Yes normal to inspection Psych Mental Status: mental status grossly normal Assessment & Plan Assessment & Plan (1) Coronary artery disease: Comment: CABG Code(s): I25.10 - Atherosclerotic heart disease of [place] coronary artery without angina pectoris Qualifiers: Associated angina: without angina Coronary Disease-Associated Artery/Lesion type: [place] artery [place] vs. transplanted heart: [place] heart Qualified Code(s): I25.10 - Atherosclerotic heart disease of [place] coronary artery without angina pectoris Plan: Remote CABG. Recent NSTEMI. Still awaiting formal report but from preliminary information, no interventions performed due to lack of targets. Patent grafts. Possible target is ramus intermedius, [place]. May remain on medical therapy for now. Continue aspirin Plavix. Continue statins. Also on beta-blockers. (2) Chronic HFrEF (heart failure with reduced ejection fraction): Code(s): I50.22 - Chronic systolic (congestive) heart failure Plan: In the recent echocardiogram, LVEF 30-35%. Wall motion abnormalities noted. No obvious valvular issues. He does not have any overt heart failure. Advised the to change the diuretic to p.r.n. Lasix. Stop the hydrochlorothiazide. Can continue Olmesartan for now. Possibly Entresto in the future. Other meds that can be used including spironolactone and Farxiga but need to make sure the kidney function is stable 1st. (3) Hypertension: Code(s): I10 - Essential (primary) hypertension Qualifiers: Hypertension type: essential hypertension Qualified Code(s): I10 - Essential (primary) hypertension Plan: Blood pressure is on the lower side. No med changes. Continue amlodipine, olmesartan. Plan Discussed with who came for appointment. Orders: Orders Cardiac Rehab Today I21.4 - Non-ST elevation (NSTEMI) myocardial infarction, I50.22 - Chronic systolic (congestive) heart failure Basic Metabolic Panel Today I50.22 - Chronic systolic (congestive) heart failure B Type Natriuretic Peptide Today I50.22 - Chronic systolic (congestive) heart failure Medications: Discontinued dulaglutide 1.5 mg (0.5 mL) subcut QWEEK 90 days 6.5 mL 3RF E11.65 - Type 2 diabetes mellitus with hyperglycemia, Z79.4 - skilled nursing (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 hydrochlorothiazide Discontinued Reason: Doctor's Order 25 mg PO DAILY 90 days 90 caps 2RF cholestyramine-aspartame 4 gram 4 grams 2 times a day; 90 days 231 grams 11RF E78.00 - Pure hypercholesterolemia, unspecified rosuvastatin 40 mg PO DAILY 90 days 90 tabs 1RF Coding Level of Care Code Est Pt Level 4 (47101) Diagnoses Coronary artery disease I25.10 Associated angina: without angina Coronary Disease-Associated Artery/Lesion type: [place] artery [place] vs. transplanted heart: [place] heart Chronic HFrEF (heart failure with reduced ejection fraction) I50.22 Hypertension I10 Hypertension type: essential hypertension
[2023-05-08 13:49] VITALS: BP 90/54; PULSE 96; BMI 28.6
== END 2023-05-08 14:20 | disposition home or self-care (01) ==
PROVIDERS: PCP Internal Medicine; Visit Provider Internal Medicine
DX: I25.10 Atherosclerotic heart disease of native coronary artery without angina pectoris (principal); I50.22 Chronic systolic (congestive) heart failure; I10 Essential (primary) hypertension
CPT/HCPCS: 99214

== ENCOUNTER → 2023-05-08 13:46 | Outpatient (BNVA) | payer MEDICARE, SELFPAY | PROVIDERS: PCP Internal Medicine; Visit Provider Internal Medicine | DX: I50.22 Chronic systolic (congestive) heart failure (principal); I10 Essential (primary) hypertension; I21.4 Non-ST elevation (NSTEMI) myocardial infarction; D64.9 Anemia, unspecified; Z98.890 Other specified postprocedural states | CPT/HCPCS: 99212 ==

== ENCOUNTER 2023-05-15 08:46 | Outpatient (REF) | payer MEDICARE, SELFPAY ==
[2023-05-15 10:51] LABS: MANUAL DIFF FLAG NO
[2023-05-15 11:04] LABS: Basophils Absolute Auto 0.2 X10*3/uL (0.0-0.2); Basophils Percent Auto 1.2 % (0-2); Eosinophils Percent Auto 7.9 % (0-4); Hematocrit 35.1 % (42.0-52.0); Hemoglobin 10.6 g/dl (14.0-18.0); Imm Gran Abs Auto 0.08 X10*3/uL (0.00-0.03); Imm Gran Pct Auto 0.6 % (0.0-0.4); Immature Retic Fraction 14.9 % (2.3-13.4); Lymphocytes Absolute Auto 1.7 X10*3/uL (1.2-4.9); Lymphocytes Percent Auto 13.7 % (20-40); Mean Corpuscular HGB Conc 30.2 g/dl (31.0-36.0); Mean Corpuscular Volume 82.8 fL (80.0-98.0); Mean Platelet Volume 11.1 fL (9.4-12.4); Monocytes Percent Auto 7.9 % (2-11); Neutrophils Absolute Auto 8.7 x10*3/uL (2.0-8.3); Neutrophils Percent Auto 68.7 % (45-73); Platelet Count 296 X10*3/uL (160-400); Red Blood Count 4.24 X10*6/uL (4.60-5.80); Red Cell Distribution Width 13.9 % (11.0-16.0); Retic HGB Equivalent 24.3 pg (30.0-35.0); Reticulocyte Percent 1.4 % (0.5-1.8); Reticulocytes Absolute 0.058 X10*6/uL (0.026-0.095); White Blood Count 12.7 X10*3/uL (4.8-10.8)
[2023-05-15 11:42] LABS: Alanine Aminotransferase 22 U/L (0-40); Albumin Level 3.5 g/dL (3.5-5.0); Alkaline Phosphatase 100 U/L (39-117); Anion Gap 13 (12-20); Aspartate Amino Transferase 18 U/L (5-37); Bilirubin Total 0.3 mg/dL (0.0-1.0); Blood Urea Nitrogen 45 mg/dL (9-16); Calcium 9.4 mg/dL (8.4-10.2); Carbon Dioxide 32 mmol/L (22-29); Chloride 100 mmol/L (96-108); Estimated Glomerular Filt Rate 25; Ferritin 301 ng/mL (20-250); Glucose Random 201 mg/dL (60-115); Iron 30 mcg/dL (45-160); Percent Iron Saturation 10 % (15-50); Potassium 5.5 mmol/L (3.3-5.1); Sodium 139 mmol/L (135-145); Total Iron Binding Capacity 294 mcg/dL (228-428); Total Protein 6.8 g/dL (6.5-8.0); Unsaturated Iron Binding 264 ug/dL
[2023-05-15 11:55] LABS: Folate 8.4 ng/mL (> or = 4.0); Vitamin B12 409 pg/mL (200-900)
[2023-05-29 14:03] LABS: IgA 132 mg/dL (70-320); IgG 1046 mg/dL (600-1540); IgM 51 mg/dL (50-300)
== END 2023-05-15 08:47 | disposition home or self-care (01) ==
LOC: HO.10HDL 08:46
PROVIDERS: Internal Medicine Medical Oncology; Visit Provider Internal Medicine
DX: D64.9 Anemia, unspecified (principal)
CPT/HCPCS: 36415; 80053; 82607; 82728; 82746; 82784; 83540; 85025; 85045; 86334

== ENCOUNTER 2023-06-19 12:27 | Outpatient (AMB) | payer MEDICARE, SELFPAY ==
[2023-06-11 06:52] VITALS: BP 140/52; BP 140/74; BMI 31.0
--- NOTE | 2023-06-19 12:37 | A.OFFVIS_ITS ---
Intake Vital Signs 06/19/23 12:38 Height 5 ft 9 in Weight 205 lb 0.478 oz BMI 30.3 BP 126/62 Blood Pressure Location Lt brachial Position Sitting Pulse 68 Intake Visit Reasons: 5 week follow up Intake Note: 5 week follow up Support Services Tech Required: No Accompanied by: Self / Same As Patient Allergies olmesartan Allergy (Unknown, Verified 06/19/23 12:40) Diarrhea Medication List - Last Reconciled 06/19/23 by Kenny Clark MD amlodipine 5 mg PO DAILY aspirin 81 mg PO DAILY blood pressure monitor (Blood Pressure Kit) As directed blood sugar diagnostic (OneTouch Ultra Test strips) As directed blood-glucose meter (AdorStyleTouch Ultra2 Meter) As directed clopidogrel (Plavix) 75 mg PO DAILY dulaglutide 1.5 mg subcut HOUSER ezetimibe (Zetia) 10 mg PO DAILY furosemide 40 mg PO Q OTHER DAY glipizide ER 5 mg PO DAILY 30 days insulin glargine (Basaglar KwikPen U-100 Insulin) 23 units (0.23 mL) subcut DAILY isosorbide mononitrate ER 30 mg PO DAILY lancets (AdorStyleTouch UltraSoft Lancets) Testing 4 times a day lancets (AdorStyleTouch Delica Plus Lancet) As directed check the BS TID metoprolol tartrate 100 mg PO BID mirtazapine 7.5 mg PO BEDTIME omeprazole 40 mg PO BID@0630,1630 pen needle, diabetic (1st Tier Unifine Pentips) As directed inject insulin 4 times a day pen needle, diabetic (BD Ultra-Fine Micro Pen Needle) test 4 times per day rosuvastatin 40 mg PO BEDTIME sucralfate 1 g PO QIDACHS HPI HPI Comments History of Present Illness Details Divya returns for follow-up regarding coronary artery disease. In the past, he had chest discomfort with elevated troponins. Echocardiogram at shown cardiomyopathy. Then went to [facility] and underwent cardiac catheterization. However, no interventions. Subsequently, discharged home. He states he is actually doing pretty good. No complaints of angina or shortness of breath or in fact anything cardiac sounding. There is also history of recent GI bleeding earlier this year. Endoscopy then had shown gastric ulcers. [facility] Medical History (Updated 05/16/23 @ 10:44 by Quang Rahman MD) Anxiety and depression Coronary artery disease Diarrhea Generalized anxiety disorder GERD (gastroesophageal reflux disease) Humeral fracture Hypercholesterolemia Hypertension Leukocytosis Obesity (BMI 30-39.9) Screening for prostate cancer Type 2 diabetes mellitus with hyperglycemia Vitamin D deficiency Surgical History History of cholecystectomy History of colonoscopy History of coronary artery bypass graft History of endoscopic gastrointestinal surgery History of repair of rotator cuff History of tonsillectomy History of umbilical hernia repair Family History Father Lung cancer Mother Diabetes Hypertension Social History Household Members: Spouse Housing: House Do you presently have visiting nurse or other home services: No Alcohol intake: never Patient Tobacco Use Status: Never used Tobacco Tobacco use type: Smokeless Tobacco e-Cigarette/Vaping Use: Never Used Second Hand Smoke Exposure: No Advance Directives Date on File: 03/07/22 service: No Current occupational status: retired Cognitive needs: No Hearing needs: No Vision needs: Yes (glasses) Review of Systems Const Denies weakness ENT Denies dizziness Card Denies chest pain, Denies chest pain with activity, Denies syncope, Denies rapid heart rate, Denies pedal edema, Denies edema, Denies leg edema, Denies lightheadedness, Denies palpitations, Denies dyspnea, Denies dyspnea on exertion and Denies orthopnea Resp Denies cough, Denies dyspnea and Denies dyspnea on exertion GI Denies hematochezia and Denies change in stool character Reports no additional complaints and Reports as per HPI Musc Denies abnormal gait, Denies muscle cramps, Denies muscle weakness, Denies numbness, Denies radiating pain into limb and Denies tingling Skin/Breast Reports system reviewed and no additional complaints, except as documented and Reports as per HPI Neuro Denies abnormal gait, Denies dizziness, Denies syncope, Denies numbness, Denies tingling and Denies weakness Psych Reports no additional complaints and Reports as per HPI Endo Denies palpitations Physical Exam Vital Signs: Last Vital Signs Pulse 68 06/19/23 12:38 BP 126/62 06/19/23 12:38 BMI result Body Mass Index 30.3 Const General: comfortable and no acute distress Orientation/consciousness: patient oriented x3 HEENT Other: Unremarkable Head: Yes normal to inspection Neck Neck: Yes normal visual inspection Chest Chest palpation & inspection: normal inspection of the chest Resp Auscultation: clear to auscultation bilaterally Cardio Palpation: normal PMI Heart sounds: S1 normal heart sound present, S2 normal heart sound present, no gallops, no murmurs and no rubs GI Palpation (GI): Soft to palpation Back/Spine/Pelvis Other: unremarkable Skin General skin exam: no rashes or lesions noted Neuro General: patient oriented x3 Extrem General: Yes normal to inspection Psych Mental Status: mental status grossly normal Assessment & Plan Assessment & Plan (1) Coronary artery disease: Comment: CABG Code(s): I25.10 - Atherosclerotic heart disease of [place] coronary artery without angina pectoris Qualifiers: Associated angina: without angina Coronary Disease-Associated Artery/Lesion type: [place] artery [place] vs. transplanted heart: [place] heart Qualified Code(s): I25.10 - Atherosclerotic heart disease of [place] coronary artery without angina pectoris Plan: Status post recent cardiac catheterization. Diffuse CAD but nothing truly intervenable. Hence on medical therapy only. Okay to continue aspirin/Plavix/statins. Clinically, no angina. Most recently, LDL 71 mg/dL. (2) Chronic HFrEF (heart failure with reduced ejection fraction): Code(s): I50.22 - Chronic systolic (congestive) heart failure Plan: In the recent echocardiogram, LVEF 30-35%. Wall motion abnormalities noted. No obvious valvular issues. Clinically, no heart failure symptoms or signs. May remain on beta-blockers. Switch to sustained release preparation in the future. He was on olmesartan but he also has renal insufficiency with rising creatinine hence that has been stopped. No further changes at this time. (3) Hypertension: Code(s): I10 - Essential (primary) hypertension Qualifiers: Hypertension type: essential hypertension Qualified Code(s): I10 - Essential (primary) hypertension Plan: Stable. No changes. Plan Discussed with who came for appointment. Orders: Orders CA echo transthoracic complete 6 Months I50.22 - Chronic systolic (congestive) heart failure Medications: Discontinued dulaglutide 1.5 mg (0.5 mL) subcut QWEEK 90 days 6.5 mL 3RF E11.65 - Type 2 diabetes mellitus with hyperglycemia, Z79.4 - intermediate manager (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 cholestyramine-aspartame 4 gram 4 grams 2 times a day; 90 days 231 grams 11RF E78.00 - Pure hypercholesterolemia, unspecified rosuvastatin 40 mg PO DAILY 90 days 90 tabs 1RF Coding Level of Care Code Est Pt Level 4 (95234) Diagnoses Coronary artery disease I25.10 Associated angina: without angina Coronary Disease-Associated Artery/Lesion type: [place] artery [place] vs. transplanted heart: [place] heart Chronic HFrEF (heart failure with reduced ejection fraction) I50.22 Hypertension I10 Hypertension type: essential hypertension
[2023-06-19 12:38] VITALS: BP 126/62; PULSE 68; BMI 30.3
== END 2023-06-19 12:53 | disposition home or self-care (01) ==
PROVIDERS: PCP Internal Medicine; Referring Provider Internal Medicine; Visit Provider Internal Medicine
DX: I25.10 Atherosclerotic heart disease of native coronary artery without angina pectoris (principal); I50.22 Chronic systolic (congestive) heart failure; I10 Essential (primary) hypertension
CPT/HCPCS: 99214

== ENCOUNTER → 2023-06-19 12:55 | Outpatient (REF) | payer MEDICARE, SELFPAY | LOC: HO.SL 12:55 | PROVIDERS: PCP Internal Medicine; Visit Provider Internal Medicine | DX: G47.33 Obstructive sleep apnea (adult) (pediatric) (principal); I25.10 Atherosclerotic heart disease of native coronary artery without angina pectoris; I11.0 Hypertensive heart disease with heart failure; I50.22 Chronic systolic (congestive) heart failure; E11.65 Type 2 diabetes mellitus with hyperglycemia; E78.00 Pure hypercholesterolemia, unspecified; Z79.4 Long term (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; Z79.899 Other long term (current) drug therapy | CPT/HCPCS: 95806; 99212 ==

== ENCOUNTER → 2023-06-19 13:15 | Outpatient (BNV) | payer MEDICARE, SELFPAY ==
[2023-06-11 06:52] VITALS: BP 140/52; BP 140/74; BMI 31.0
== END ==
PROVIDERS: PCP Internal Medicine; Visit Provider Psychiatry & Neurology Neurology
DX: G47.33 Obstructive sleep apnea (adult) (pediatric) (principal)
CPT/HCPCS: 95806

== ENCOUNTER 2023-06-27 12:01 | Outpatient (REF) | payer MEDICARE, SELFPAY ==
[2023-06-11 06:52] VITALS: BP 140/52; BP 140/74; BMI 31.0
[2023-06-27 13:45] LABS: Blood Urea Nitrogen 33 mg/dL (9-16); Estimated Glomerular Filt Rate 43
== END 2023-06-27 12:02 | disposition home or self-care (01) ==
LOC: HO.10HDL 12:01
PROVIDERS: Visit Provider Otolaryngology
DX: R42 Dizziness and giddiness (principal)
CPT/HCPCS: 36415; 82565; 84520

== ENCOUNTER 2023-07-22 08:59 | Outpatient (AMB) | payer MEDICARE, SELFPAY ==
[2023-06-11 06:52] VITALS: BP 140/52; BP 140/74
[2023-07-09 14:49] VITALS: BP 140/52; BMI 31.0
--- NOTE | 2023-07-22 09:02 | MHC.OFFVIS ---
Intake Vital Signs 07/22/23 09:03 Height 5 ft 9 in Weight 214 lb 11.684 oz BMI 31.7 BP 138/64 Blood Pressure Location Lt brachial Position Sitting Pulse 76 Pulse Source Pulse Oximeter Intake Visit Reasons: DM2/Confirmed Intake Note: New patient present today for Type 2 Diabetes Mellitus. 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 Accompanied by: Self / Same As Patient Allergies olmesartan Allergy (Unknown, Verified 07/22/23 09:10) Diarrhea Medication List - Last Reconciled 07/22/23 by Isaiah Aquino MD amlodipine 5 mg PO DAILY aspirin 81 mg PO DAILY blood pressure monitor (Blood Pressure Kit) As directed blood sugar diagnostic (ImaCorTouch Ultra Test strips) As directed blood-glucose meter (ImaCorTouch Ultra2 Meter) As directed clopidogrel (Plavix) 75 mg PO DAILY dulaglutide 1.5 mg subcut HOUSER ezetimibe (Zetia) 10 mg PO DAILY furosemide 40 mg PO Q OTHER DAY glipizide ER 5 mg PO DAILY 30 days insulin glargine (Basaglar KwikPen U-100 Insulin) 23 units (0.23 mL) subcut DAILY isosorbide mononitrate ER 30 mg PO DAILY lancets ([employer] UltraSoft Lancets) Testing 4 times a day lancets (ImaCorTouch Delica Plus Lancet) As directed check the BS TID metoprolol succinate ER 100 mg PO BID mirtazapine 7.5 mg PO BEDTIME omeprazole 40 mg PO BID@0630,1630 pen needle, diabetic (1st Tier Unifine Pentips) As directed inject insulin 4 times a day pen needle, diabetic (BD Ultra-Fine Micro Pen Needle) test 4 times per day rosuvastatin 40 mg PO BEDTIME sucralfate 1 g PO QIDACHS HPI HPI Comments History of Present Illness Details 68 YO M who is seen in consultation for T2DM at the request of PCP. Initially diagnosed with T2DM in few yrs. Never seen endo before . Was initially started on treatment with Glipizide . Metfromin was stopped because of kidney decline Current regimen Trulicity 1.5 mg Qwkly Glipizide ER 5 mg QD . Lantus 23 units Unfortunately, patient did not bring log book or glucometer to visit Not Reports low sugars . Family history of T2DM in mother and grandmother . Has eyes checked yearly, last eye exam Sep 2022 , denies retinopathy. Denies neuropathy, sees podiatry. Has nephropathy, Was on LYNDSAY/ARB stopped by renal . Has HLD, on statin. Has CAD. Not Had diabetes education. [facility] Medical History (Updated 05/16/23 @ 10:44 by Quang Rahman MD) Leukocytosis Screening for prostate cancer Generalized anxiety disorder Diarrhea Anxiety and depression Type 2 diabetes mellitus with hyperglycemia Hypercholesterolemia GERD (gastroesophageal reflux disease) Vitamin D deficiency Obesity (BMI 30-39.9) Coronary artery disease Hypertension Humeral fracture Surgical History History of endoscopic gastrointestinal surgery History of colonoscopy History of coronary artery bypass graft History of umbilical hernia repair History of tonsillectomy History of repair of rotator cuff History of cholecystectomy Family History Father Lung cancer Mother Diabetes Hypertension Social History Household Members: Spouse Housing: House Do you presently have visiting nurse or other home services: No Alcohol intake: never Patient Tobacco Use Status: Never used Tobacco Tobacco use type: Smokeless Tobacco e-Cigarette/Vaping Use: Never Used Second Hand Smoke Exposure: No Advance Directives Date on File: 03/07/22 service: No Current occupational status: retired Cognitive needs: No Hearing needs: No Vision needs: Yes (glasses) Physical Exam Vital Signs: Last Vital Signs Pulse 76 07/22/23 09:03 BP 138/64 07/22/23 09:03 BMI result Body Mass Index 31.7 Absence of Cushingoid features. Absence of acromegalic features. Neck exam reveals nl size thyroid about 15 gms. No thyroid nodules palpable. No carotid bruits present. Lungs CTA. Heart S1 S2, Reg R/R. No M/R/ G. Skin exam reveals absence of vitiligo or acanthosis nigricans. Abdominal exam reveals Soft NT/ND with NA BS. No organomegaly present. Neck Other: . Extrem Other: Visual exam of foot performed. No ulcerations or open lesions. No onchomycosis, no callouses.Pulses 2 + distally Sensation intact to monofilament exam. Vibratory sensation sensed is decreased with 128 Hz tuning fork Results AMB Hemoglobin A1c AMB Hemoglobin A1c 6.2 % Last Edit by Melva Duque on 07/22/23 09:25 Results Reviewed Results Reviewed: 07/22/23 09:12 Glucose, Whole Blood Routine Laboratory Last Values Glucose (Clinic) 147 mg/dL (60-115) H 07/22/23 09:12 Assessment & Plan Assessment & Plan (1) Type 2 diabetes mellitus with hyperglycemia: Code(s): E11.65 - Type 2 diabetes mellitus with hyperglycemia Qualifiers: Diabetes mellitus residential insulin use: with residential use Qualified Code(s): E11.65 - Type 2 diabetes mellitus with hyperglycemia; Z79.4 - meterman (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 Plan: This 68-year-old white male with a history of type 2 diabetes being treated with Trulicity, glipizide and basal insulin with excellent glycemic control and known microvascular complications namely CKD Plan is to have the patient check his point cares pre and post meals. Should bring glucometer with follow-up visit. Will attempt to get a Sensor like Eliceo 3 for patient. Could consider adding Jardiance to diabetic regimen in light of CHF but would do it in conjunction with Cardiology considering patient is on a moderate dose loop diuretic. 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
[2023-07-22 09:03] VITALS: BP 138/64; PULSE 76; BMI 31.7
[2023-07-22 09:17] LABS: Glucose, Whole Blood 147 mg/dL (60-115)
== END 2023-07-22 09:48 | disposition home or self-care (01) ==
PROVIDERS: PCP Internal Medicine; Referring Provider Internal Medicine; Visit Provider Internal Medicine Endocrinology, Diabetes & Metabolism
DX: E11.65 Type 2 diabetes mellitus with hyperglycemia (principal); Z79.4 Long term (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
CPT/HCPCS: 99205

== ENCOUNTER → 2023-07-22 08:59 | Outpatient (BNVA) | payer MEDICARE, SELFPAY ==
[2023-06-11 06:52] VITALS: BP 140/52; BP 140/74
[2023-07-09 14:49] VITALS: BP 140/52; BMI 31.0
== END ==
PROVIDERS: Visit Provider Internal Medicine Endocrinology, Diabetes & Metabolism
DX: E11.65 Type 2 diabetes mellitus with hyperglycemia (principal); I25.10 Atherosclerotic heart disease of native coronary artery without angina pectoris; I10 Essential (primary) hypertension; E78.5 Hyperlipidemia, unspecified; Z83.3 Family history of diabetes mellitus; Z79.4 Long term (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; Z79.899 Other long term (current) drug therapy
CPT/HCPCS: 82947; 83036

== ENCOUNTER 2023-07-26 12:22 | Outpatient (REF) | payer MEDICARE, SELFPAY ==
[2023-06-11 06:52] VITALS: BP 140/52; BP 140/74
[2023-07-09 14:49] VITALS: BP 140/52; BMI 31.0
== END 2023-07-26 12:23 | disposition home or self-care (01) ==
LOC: HO.LAB 12:22
PROVIDERS: PCP Internal Medicine; Visit Provider Internal Medicine Nephrology
DX: R63.4 Abnormal weight loss (principal); E11.22 Type 2 diabetes mellitus with diabetic chronic kidney disease; I13.0 Hypertensive heart and chronic kidney disease with heart failure and stage 1 through stage 4 chronic kidney disease, or unspecified chronic kidney disease; I50.22 Chronic systolic (congestive) heart failure; N18.32 Chronic kidney disease, stage 3b; N25.0 Renal osteodystrophy; Z12.5 Encounter for screening for malignant neoplasm of prostate
CPT/HCPCS: 36415; 80048; 80051; 81003; 82040; 82043; 82306; 82310; 82565; 82570; 83036; 83735; 83880; 83970; 84100; 84153; 84156; 84443; 84520

== ENCOUNTER 2023-08-01 13:32 | Outpatient (AMB) | payer MEDICARE, SELFPAY ==
[2023-06-11 06:52] VITALS: BP 140/52; BP 140/74
[2023-07-09 14:49] VITALS: BP 140/52; BMI 31.0
[2023-08-01 13:52] VITALS: BP 140/70; PULSE 73; O2SAT 98; BMI 31.2
--- NOTE | 2023-08-01 13:52 | A.OFFPC_ITS ---
Vital Signs 08/01/23 13:52 Height 5 ft 9 in Weight 211 lb BMI 31.2 BP 140/70 H Blood Pressure Location Lt brachial Position Sitting Pulse 73 Pulse Source Pulse Oximeter Pulse Oximetry (%) 98 Oxygen Delivery Method Room Air Intake Visit Reasons: cad, HTN Allergies olmesartan Allergy (Unknown, Verified 08/01/23 13:53) Diarrhea Tobacco use date assessed: 05/03/23 Fall risk assessment: No Falls in past year Last assessed Fall Risk: 08/01/23 Dental Screening Dental Screen Date: 08/01/23 Did you have a dental visit in the last 12 months?: No Did you have a dental problem in the last 6 months where you did not have access to dental care?: No Was dental information given to patient?: No HPI cad, HTN HPI Details 68-year-old obese male with multiple med ical problems he is diabetic with hypercholesterolemia hypertension coronary artery disease generalized anxiety disorder history of gastric ulcer BPH congestive heart failure with reduced ejection fraction obstructive sleep apnea, chronic kidney disease dementia with Alzheimer's and Parkinson's. Last seen here in the office in April 2023.. Patient follows up with Endocrinology on glipizide, metformin but stopped due to chronic kidney disease. Presently on Trulicity 1.5, glipizide 5 mg once a day and Lantus 23 units. Patient was sent to Neurology in June 2023 due to cognitive issues and the tremors patient started on carbidopa levodopa 25/100 twice a day. Sleep study done May 2023 mild obstructive sleep apnea AHI of 6.6 conservative measure treatment. 2022 seen Cardiology cardiomyopathy underwent cardiac catheterization but no interventions has diffuse CAD, on aspirin, Plavix and statins LDL 71 last echo ejection fraction of 30 35% continue with beta-blockers Alfredo inhibitor stop due to rising renal function advised October to have another echocardiogram. Patient was also noted to have leukocytosis and was referred to hematology oncology workup has been negative and advised to monitor own patient [facility] Medical History (Updated 08/01/23 @ 14:14 by Luke Albright MD) Leukocytosis Screening for prostate cancer Generalized anxiety disorder Diarrhea Anxiety and depression Type 2 diabetes mellitus with hyperglycemia Hypercholesterolemia GERD (gastroesophageal reflux disease) Vitamin D deficiency Obesity (BMI 30-39.9) Coronary artery disease Hypertension Humeral fracture Surgical History History of endoscopic gastrointestinal surgery History of colonoscopy History of coronary artery bypass graft History of umbilical hernia repair History of tonsillectomy History of repair of rotator cuff History of cholecystectomy Family History Father Lung cancer Mother Diabetes Hypertension Social History Household Members: Spouse Housing: House Do you presently have visiting nurse or other home services: No Alcohol intake: never Patient Tobacco Use Status: Never used Tobacco Tobacco use type: Smokeless Tobacco e-Cigarette/Vaping Use: Never Used Second Hand Smoke Exposure: No Advance Directives Date on File: 03/07/22 service: No Current occupational status: retired Cognitive needs: No Hearing needs: No Vision needs: Yes (glasses) Questionnaire PHQ-9 Over the last 2 weeks, how often have you been bothered by any of the following problems? 1. Little interest or pleasure in doing things: several days 2. Feeling down, depressed, or hopeless: several days 3. Trouble falling or staying asleep, or sleeping too much: several days 4. Feeling tired or having little energy: several days 5. Poor appetite or overeating: several days 6. Feeling bad about yourself - or that you are a failure or have let yourself or your family down: several days 7. Trouble concentrating on things, such as reading the newspaper or watching television: several days 8. Moving or speaking so slowly that other people could have noticed. Or the opposite - being so fidgety or restless that you have been moving around a lot more than usual: several days 9. Thoughts that you would be better off or of hurting yourself in some way: not at all Total score: 8 Depression Screening Interpretation: Positive Depression Screening Done: Yes Source: Developed by Drs. Isaiah Han, Shanna Otero, Mike Flores and colleagues, with an educational filippo from [employer]. Thrive Questionnaire Date Thrive assessed: 05/03/23 AUDIT C Alcohol Use Questionnaire (AUDIT-C) 1. How often do you have a drink containing alcohol?: Never Total Score: 0 Score Reviewed/Action Taken: Yes (Reviewed no action needed at this time) RHIANNA-7 AMB Questionnaire RHIANNA-7 Date RHIANNA - 7 assessed: 05/03/23 Source: Developed by Drs. Isaiah Han, Shanna Otero, Mike Flores and colleagues, with an educational filippo from [employer]. Physical exam (Primary Care) Vital Signs: Last Vital Signs Pulse 73 08/01/23 13:52 BP 140/70 H 08/01/23 13:52 Pulse Ox 98 08/01/23 13:52 Oxygen Delivery Method Room Air 08/01/23 13:52 BMI result Body Mass Index 31.2 Tobacco/Smoking Status: Tobacco use Status Tobacco use date assessed 05/03/23 08/01/23 13:53 Patient Tobacco Use Status Never used Tobacco 08/01/23 13:53 Tobacco use type Smokeless Tobacco 08/01/23 13:53 e-Cigarette/Vaping Use Never Used 08/01/23 13:53 PHQ-9: PHQ-9 Score PHQ-9: Total score 8 08/01/23 13:54 Depression Screening Interpretation: Positive Thrive Assessment: Date of Thrive Assessment Date Thrive assessed 05/03/23 08/01/23 13:53 Const General: alert; No acute distress Eyes Conjunctivae: conjunctivae normal Resp Auscultation: clear to auscultation bilaterally Cardio Rate: regular rate Rhythm: regular rhythm GI Inspection: Yes normal to inspection Extrem General: Yes normal to inspection and No edema Assessment and Plan Assessment & Plan (1) Coronary artery disease: Comment: CABG Code(s): I25.10 - Atherosclerotic heart disease of cahto coronary artery without angina pectoris Qualifiers: Coronary Disease-Associated Artery/Lesion type: cahto artery [place] vs. transplanted heart: cahto heart Associated angina: without angina Qualified Code(s): I25.10 - Atherosclerotic heart disease of cahto coronary artery without angina pectoris Plan: Control the cholesterol, weight, blood pressure, diabetes continue with aspirin and on Plavix (2) Hypertension: Code(s): I10 - Essential (primary) hypertension Qualifiers: Hypertension type: essential hypertension Qualified Code(s): I10 - Essential (primary) hypertension Plan: Continue with blood pressure medication. Decrease salt intake and exercise patient is on amlodipine 5 mg once a day metoprolol 100 mg twice a day (3) Obesity (BMI 30-39.9): Code(s): E66.9 - Obesity, unspecified Plan: Diet and exercise (4) Hypercholesterolemia: Code(s): E78.00 - Pure hypercholesterolemia, unspecified Plan: Avoid fried foods, chicken skin, eggs, butter margarine, pastries and meat. Be it pork or beef they have a lot of cholesterol LDL goal of less than 70 and triglyceride of less than 150 patient is on Zetia (5) Type 2 diabetes mellitus with hyperglycemia: Code(s): E11.65 - Type 2 diabetes mellitus with hyperglycemia Qualifiers: Diabetes mellitus care home insulin use: with petroleum terminal plant operator use Qualified Code(s): E11.65 - Type 2 diabetes mellitus with hyperglycemia; Z79.4 - ocean transportation intermediary (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 Plan: Decrease the amount of carbohydrate intake, pasta, bread, rice and potatoes are all sugar and that is aside from all the sweet stuff, remember that fruits are good but they are Sweet also. Hemoglobin A1c goal of less than 7.0 patient is on Basaglar glipizide 5 mg once a day and Trulicity (6) Gastric ulcer: Comment: January 2023 Code(s): K25.9 - Gastric ulcer, unspecified as acute or chronic, without hemorrhage or perforation Plan: Avoid the foods that causes that usually spicy foods, tomato products, juices, coffee, soda and foods that your sensitive to. After eating do not lie down, allow 3-4 hours before in lie down. And keep the head of bed above 30 degrees to avoid the acid from going up. Patient on omeprazole 40 mg twice a day (7) BPH with obstruction/lower urinary tract symptoms: Comment: Ultrasound December 2022 Code(s): N40.1 - Benign prostatic hyperplasia with lower urinary tract symptoms; N13.8 - Other obstructive and reflux uropathy (8) Chronic HFrEF (heart failure with reduced ejection fraction): Code(s): I50.22 - Chronic systolic (congestive) heart failure Plan: Continue with diuretics but use as the weight changes (9) Anemia: Code(s): D64.9 - Anemia, unspecified Plan: Continue to follow-up with blood (10) Alzheimer disease: Comment: Neuro 06/2023 Code(s): G30.9 - Alzheimer's disease, unspecified; F02.80 - Dementia in other diseases classified elsewhere, unspecified severity, without behavioral disturbance, psychotic disturbance, mood disturbance, and anxiety Plan: Patient has seen Neurology mini-mental status exam (11) Parkinson disease: Comment: neuro Dr. Corrales Code(s): G20.A1 - Parkinson's disease without dyskinesia, without mention of fluctuations Plan: Patient has seen Neurology and started on levodopa carbidopa Orders: Orders Reticulocyte Count Today K92.2 - Gastrointestinal hemorrhage, unspecified Thyroid Stimulating Hormone Today E11.65 - Type 2 diabetes mellitus with hyperglycemia, Z79.4 - care home (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 Creatinine Urine Today E11.65 - Type 2 diabetes mellitus with hyperglycemia, Z79.4 - care home (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 UA w Microscopic Today E11.65 - Type 2 diabetes mellitus with hyperglycemia, Z79.4 - care home (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 Prostate Specific Antigen Scr Today E11.65 - Type 2 diabetes mellitus with hyperglycemia, Z79.4 - ocean transportation intermediary (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 Lipid Panel Today E11.65 - Type 2 diabetes mellitus with hyperglycemia, E78.00 - Pure hypercholesterolemia, unspecified, Z79.4 - care home (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 B Type Natriuretic Peptide Today I50.22 - Chronic systolic (congestive) heart failure Complete Blood Count Auto Diff Today K92.2 - Gastrointestinal hemorrhage, unspecified Ferritin Today K92.2 - Gastrointestinal hemorrhage, unspecified IRON PROFILE Today K92.2 - Gastrointestinal hemorrhage, unspecified Vitamin B12 and Folate Today K92.2 - Gastrointestinal hemorrhage, unspecified Free T4 (Free Thyroxine) Today E11.65 - Type 2 diabetes mellitus with hyperglycemia, Z79.4 - ocean transportation intermediary (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 Comprehensive Met. Panel Today E11.65 - Type 2 diabetes mellitus with hyperglycemia, Z79.4 - ocean transportation intermediary (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 Microalbumin, Random (w Creat) Today E11.65 - Type 2 diabetes mellitus with hyperglycemia, Z79.4 - ocean transportation intermediary (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 Medications: New dulaglutide (Trulicity) 1.5 mg (0.5 mL) subcut QWEEK 2 mL 0RF dapagliflozin propanediol (Farxiga) 10 mg PO DAILY 30 tabs 0RF metoprolol succinate ER 200 mg PO DAILY 90 tabs 3RF I50.22 - Chronic systolic (congestive) heart failure Changed From sucralfate 1 g PO QIDACHS 30 tabs 0RF K25.9 - Gastric ulcer, unspecified as acute or chronic, without hemorrhage or perforation To sucralfate 1 g PO QIDACHS 90 days 120 tabs 3RF K25.9 - Gastric ulcer, unspecified as acute or chronic, without hemorrhage or perforation Coding Level of Care Code Est Pt Level 4 (77335) Diagnoses Coronary artery disease involving cahto coronary artery of cahto heart without angina pectoris I25.10 Coronary Disease-Associated Artery/Lesion type: cahto artery [place] vs. transplanted heart: cahto heart Associated angina: without angina Essential hypertension I10 Hypertension type: essential hypertension Obesity (BMI 30-39.9) E66.9 Hypercholesterolemia E78.00 Type 2 diabetes mellitus with hyperglycemia, with long-term current use of insulin E11.65; Z79.4 Diabetes mellitus petroleum terminal plant operator insulin use: with petroleum terminal plant operator use Gastric ulcer K25.9 BPH with obstruction/lower urinary tract symptoms N40.1; N13.8 Chronic HFrEF (heart failure with reduced ejection fraction) I50.22 Anemia D64.9 Alzheimer disease G30.9; F02.80 Parkinson disease G20.A1 Additional Codes PHQ-9 - 86071 - PHQ-9 Billing: ([id number])
== END 2023-08-01 14:40 | disposition home or self-care (01) ==
PROVIDERS: PCP Internal Medicine; Visit Provider Internal Medicine
DX: E11.65 Type 2 diabetes mellitus with hyperglycemia (principal); Z79.4 Long term (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; I50.22 Chronic systolic (congestive) heart failure; G30.9 Alzheimer's disease, unspecified; F02.80 Dementia in other diseases classified elsewhere, unspecified severity, without behavioral disturbance, psychotic disturbance, mood disturbance, and anxiety; I25.10 Atherosclerotic heart disease of native coronary artery without angina pectoris; I10 Essential (primary) hypertension; E66.9 Obesity, unspecified; E78.00 Pure hypercholesterolemia, unspecified; K25.9 Gastric ulcer, unspecified as acute or chronic, without hemorrhage or perforation; N40.1 Benign prostatic hyperplasia with lower urinary tract symptoms; N13.8 Other obstructive and reflux uropathy
CPT/HCPCS: 99214

== ENCOUNTER 2023-08-02 07:50 | Outpatient (REF) | payer MEDICARE, SELFPAY ==
[2023-06-11 06:52] VITALS: BP 140/52; BP 140/74
[2023-07-09 14:49] VITALS: BP 140/52; BMI 31.0
[2023-08-02 08:16] LABS: MANUAL DIFF FLAG NO
[2023-08-02 09:23] LABS: Basophils Absolute Auto 0.1 X10*3/uL (0.0-0.2); Basophils Percent Auto 0.9 % (0-2); Eosinophils Absolute Auto 0.5 X10*3/uL (0.0-0.4); Eosinophils Percent Auto 4.4 % (0-4); Hematocrit 40.1 % (42.0-52.0); Hemoglobin 12.1 g/dl (14.0-18.0); Imm Gran Abs Auto 0.06 X10*3/uL (0.00-0.03); Imm Gran Pct Auto 0.6 % (0.0-0.4); Immature Retic Fraction 23.5 % (2.3-13.4); Lymphocytes Absolute Auto 1.5 X10*3/uL (1.2-4.9); Lymphocytes Percent Auto 14.4 % (20-40); Mean Corpuscular HGB Conc 30.2 g/dl (31.0-36.0); Mean Corpuscular Hemoglobin 24.8 pg (27.0-33.0); Mean Corpuscular Volume 82.2 fL (80.0-98.0); Mean Platelet Volume 10.3 fL (9.4-12.4); Monocytes Absolute Auto 0.9 X10*3/uL (0.1-1.2); Monocytes Percent Auto 8.6 % (2-11); Neutrophils Absolute Auto 7.5 x10*3/uL (2.0-8.3); Neutrophils Percent Auto 71.1 % (45-73); Platelet Count 238 X10*3/uL (160-400); Red Blood Count 4.88 X10*6/uL (4.60-5.80); Red Cell Distribution Width 15.9 % (11.0-16.0); Retic HGB Equivalent 29.3 pg (30.0-35.0); Reticulocyte Percent 1.7 % (0.5-1.8); Reticulocytes Absolute 0.083 X10*6/uL (0.026-0.095); White Blood Count 10.5 X10*3/uL (4.8-10.8)
[2023-08-02 09:32] LABS: Appearance Urine Clear; Color Urine Yellow; Glucose Urine UA 500 mg/dL (Negative); Leukocyte Esterase Urine Negative (Negative); Nitrite Urine Negative (Negative); Urine Blood Negative (Negative); Urine Ketones Negative (Negative); Urine Protein Negative (Neg-Trace)
[2023-08-02 09:40] LABS: Bacteria Urine None Seen (None Seen); Hyaline Casts Urine 0-2 /LPF (0-2); RBC Urine 0-2 /HPF (0-2); Squamous Epithelial Cell Urine 0-2 /HPF (0-2); WBC Urine 0-5 /HPF (0-5)
[2023-08-02 10:23] LABS: B Type Natriuretic Peptide 153 pg/mL (<100)
[2023-08-02 10:47] LABS: Alanine Aminotransferase < 5 U/L (0-40); Albumin Level 4.4 g/dL (3.5-5.0); Alkaline Phosphatase 131 U/L (39-117); Anion Gap 17 (12-20); Aspartate Amino Transferase 20 U/L (5-37); Bilirubin Total 0.3 mg/dL (0.0-1.0); Blood Urea Nitrogen 30 mg/dL (9-16); Carbon Dioxide 24 mmol/L (22-29); Chloride 105 mmol/L (96-108); Cholesterol 128 mg/dL (<200); Estimated Glomerular Filt Rate 45; Glucose Random 109 mg/dL (60-115); HDL Cholesterol 37 mg/dL (>40); Iron 47 mcg/dL (45-160); LDL Cholesterol Calculated 71 mg/dL (<100); Percent Iron Saturation 12 % (15-50); Potassium 4.1 mmol/L (3.3-5.1); Sodium 142 mmol/L (135-145); Total Iron Binding Capacity 377 mcg/dL (228-428); Total Protein 7.8 g/dL (6.5-8.0); Triglycerides 102 mg/dL (<150); Unsaturated Iron Binding 330 ug/dL
[2023-08-02 10:48] LABS: Ferritin 88 ng/mL (20-250); Free T4 (Free Thyroxine) 0.79 ng/dL (0.71-1.85); Thyroid Stimulating Hormone 1.28 uIU/mL (0.32-4.0)
[2023-08-02 10:55] LABS: Folate 10.8 ng/mL (> or = 4.0); Prostate Specific Antigen Scr 1.13 ng/mL (<0.05-4.0); Vitamin B12 439 pg/mL (200-900)
[2023-08-02 12:04] LABS: Creatinine Urine 17.87 mg/dL; Microalbum/Creatinine Ratio Ur 44.7 ug/mg cr (<30)
== END 2023-08-02 07:51 | disposition home or self-care (01) ==
LOC: HO.LAB 07:50
PROVIDERS: PCP Internal Medicine; Visit Provider Internal Medicine
DX: I50.22 Chronic systolic (congestive) heart failure (principal); E78.00 Pure hypercholesterolemia, unspecified; E11.65 Type 2 diabetes mellitus with hyperglycemia; K92.2 Gastrointestinal hemorrhage, unspecified; Z79.4 Long term (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; Z12.5 Encounter for screening for malignant neoplasm of prostate
CPT/HCPCS: 36415; 80053; 80061; 81001; 82043; 82570; 82607; 82728; 82746; 83540; 83880; 84153; 84439; 84443; 85025; 85045

== ENCOUNTER 2023-09-03 07:57 | Outpatient (REF) | payer MEDICARE, SELFPAY ==
[2023-06-11 06:52] VITALS: BP 140/52; BP 140/74
[2023-07-09 14:49] VITALS: BP 140/52; BMI 31.0
[2023-09-02 15:43] VITALS: BP 140/52; BP 140/74; BMI 31.0
--- NOTE | ~2023-09-03 | MR_ITS ---
EXAMINATION: MR BRAIN WITHOUT AND WITH CONTRAST CLINICAL INFORMATION: Decreased hearing COMPARISON: CT head 02/24/2023 TECHNIQUE: Multiplanar, multisequence imaging was obtained without and with intravenous contrast. Intravenous contrast: 10 mL Gadavist. FINDINGS: The VII and VIII cranial nerve complexes are normal in course and caliber. No signal abnormality is visualized within the inner ear structures on the precontrast axial T1-weighted sequence. Fluid signal is preserved within the cochlea, semicircular canals, and vestibule on the high-resolution axial FIESTA sequence. There is no abnormal labyrinthine or intracanalicular enhancement on postcontrast imaging. No cerebellopontine angle lesion. No acute infarct. Punctate focus of susceptibility within the anterior right temporal periventricular white matter, presumed chronic microhemorrhage. No extra-axial fluid collection. Mild to moderate global cerebral volume loss. Small chronic lacunar infarct within the left centrum semiovale and chronic cortical/subcortical infarct in the right parietal lobe. No abnormal intraparenchymal or leptomeningeal enhancement. No mass effect or herniation pattern. Normal appearance of the midline structures. Normal intracranial arterial and dural venous sinus flow voids. Slight proptosis likely on the basis of increased intraorbital fat deposition which may be seen in the setting of chronic exogenous steroid use for thyroid eye disease and can be correlated clinically. Leftward nasal septal deviation with leftward bony spur impinging on the left inferior nasal turbinate. The paranasal sinuses are well aerated. Redemonstrated trace left mastoid effusion. The craniocervical junction is intact. Normal marrow signal. MR/MR head/brain wo/w con IMPRESSION: 1. No retrocochlear pathology. 2. Small chronic lacunar infarct within the left centrum semiovale and chronic cortical/subcortical infarct in the right parietal lobe. 3. No acute intracranial process or pathologic intracranial enhancement. 4. Slight proptosis likely on the basis of increased intraorbital fat deposition which may be seen in the setting of chronic exogenous steroid use for thyroid eye disease and can be correlated clinically. 5. Leftward nasal septal deviation with leftward bony spur impinging on the left inferior nasal turbinate.
[2023-09-03] MEDS: gadobutroL 10 ML VIAL IVPUSH (08:58)
== END 2023-09-03 07:58 | disposition home or self-care (01) ==
LOC: HO.MRI 07:57
PROVIDERS: PCP Internal Medicine; Visit Provider Otolaryngology
DX: D33.3 Benign neoplasm of cranial nerves (principal); H81.4 Vertigo of central origin; E11.65 Type 2 diabetes mellitus with hyperglycemia; Z79.4 Long term (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; Z71.3 Dietary counseling and surveillance
CPT/HCPCS: 70553; 97802; A9585

== ENCOUNTER 2023-09-03 10:16 | Outpatient (AMB) | payer MEDICARE, SELFPAY ==
[2023-06-11 06:52] VITALS: BP 140/52; BP 140/74
[2023-07-09 14:49] VITALS: BP 140/52; BMI 31.0
[2023-09-02 15:43] VITALS: BP 140/52; BP 140/74; BMI 31.0
--- NOTE | 2023-09-03 10:44 | A.OFFVIS_ITS ---
Intake VS Expanded 09/03/23 10:45 Height 5 ft 9 in Weight 211 lb 10.3 oz BMI 31.3 Intake Visit Reasons: Type 2 diabetes Allergies olmesartan Allergy (Unknown, Verified 08/01/23 13:53) Diarrhea HPI Nutrition Presentation Details Pt presents for MNT for T2DM . Pt was referred by Dr. Albright, PCP Pt reports he is hard of hearing Pt has hx of dementia, Alzheimers Pt reports having yogurt once a day and reports choosing low fat foods b: sandwich with egg/ham, coffee L: pasta /meatballs, diet coke D: rice/chicken, carrots, water or diet coke ice cream,or cereal with milk fruits:daily fish: does not like dairy: yogurt daily vegetables: storm snot like Pt complains of diarrhea when having milk/cheese CLK-Mgjfhre-Au.Jeor Equation Height 5 ft 9 in Weight 211 lb Resting Metabolic Rate 1717.02 Calculated Activity Level Sedentary Calories Needed to Maintain Weight 0.42 Diagnosis Nutrition problem #1 other (intolerance to lactose) As related to (etiology) #1 other (symptoms of diarrhea after consumption of lactose containing foods) Most Recent Diabetes Results: Microalb/Creat Ratio 44.7 ug/mg cr (<30) H 08/02/23 Cholesterol 128 mg/dL (<200) 08/02/23 HDL Cholesterol 37 mg/dL (>40) L 08/02/23 Triglycerides 102 mg/dL (<150) 08/02/23 Creatinine 1.54 mg/dL (0.5-1.4) H 08/02/23 Blood Urea Nitrogen 30 mg/dL (9-16) H 08/02/23 Sodium 142 mmol/L (135-145) 08/02/23 Potassium 4.1 mmol/L (3.3-5.1) 08/02/23 Chloride 105 mmol/L (96-108) 08/02/23 Carbon Dioxide 24 mmol/L (22-29) 08/02/23 Calcium 10.0 mg/dL (8.4-10.2) 08/02/23 AST 20 U/L (5-37) 08/02/23 ALT < 5 U/L (0-40) 08/02/23 Total Protein 7.8 g/dL (6.5-8.0) 08/02/23 Albumin 4.4 g/dL (3.5-5.0) 08/02/23 [facility] Medical History (Updated 09/09/23 @ 21:20 by Grazyna Kline, RD, LDN) Leukocytosis Screening for prostate cancer Generalized anxiety disorder Diarrhea Anxiety and depression Type 2 diabetes mellitus with hyperglycemia Hypercholesterolemia GERD (gastroesophageal reflux disease) Vitamin D deficiency Obesity (BMI 30-39.9) Coronary artery disease Hypertension Humeral fracture Surgical History History of endoscopic gastrointestinal surgery History of colonoscopy History of coronary artery bypass graft History of umbilical hernia repair History of tonsillectomy History of repair of rotator cuff History of cholecystectomy Family History Father Lung cancer Mother Diabetes Hypertension Social History Household Members: Spouse Housing: House Do you presently have visiting nurse or other home services: No Alcohol intake: never Patient Tobacco Use Status: Never used Tobacco Tobacco use type: Smokeless Tobacco e-Cigarette/Vaping Use: Never Used Second Hand Smoke Exposure: No Advance Directives Date on File: 03/07/22 service: No Current occupational status: retired Cognitive needs: No Hearing needs: No Vision needs: Yes (glasses) Assessment & Plan Assessment & Plan (1) Type 2 diabetes mellitus with hyperglycemia: Comment: Pt c/o diarrhea after consuming lactose containing foods Code(s): E11.65 - Type 2 diabetes mellitus with hyperglycemia Qualifiers: Diabetes mellitus ocean transportation intermediary insulin use: with ocean transportation intermediary use Qualified Code(s): E11.65 - Type 2 diabetes mellitus with hyperglycemia; Z79.4 - intermediate (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 Plan: Discuss lactose free DM diet plan. wt: 96 kg Est kcal needs as per MSJ: 2100 (40% carb, 30% protein/fat) Est fluid needs as per 30 ml/d: 2900 Est prot per day as per .8- 1 g/kg bw: 77- 96 Recommend fiber intake : 8-10 g per day and gradually increase to 25-28 g per day for women and 35-38 g for men or as tolerated Recommend sodium intake per day less than 2000 mg Educated patient on: ( R = reviewed V = verbalizes understanding N/R = needs review N/A = not applicable Lactose free food choices: R Healthy plate method: R * Food sources of carbohydrate, adequate serving sizes and its role in various health conditions: NR * Differences between complex carbohydrates a simple carbohydrates, role of f iber in diet: R V R/V * Differences between types of fats and role in diet (mono on saturated fat fatty acids, saturated fatty acids, trans fats): NR * Food sources of sodium in salt and healthy modifications for heart health in kidney health: NR * Vitamins and minerals: NR * Healthy plate method concept: R * Physical activity: Benefits a precaution: R * Hydration: R Patient Instructions: Choose lactose free foods- see diabetic meal plan lactose free Bring family member to next follow up for review call for questions prior to next follow up Coding Level of Care Code Nutr Indiv Intake (51370) Diagnoses Type 2 diabetes mellitus with hyperglycemia, with long-term current use of insulin E11.65; Z79.4 Diabetes mellitus ocean transportation intermediary insulin use: with penitentiary use Time Spent (min) 30
[2023-09-03 10:45] VITALS: BMI 31.3
[2023-09-09 21:23] VITALS: BMI 31.2
== END 2023-09-03 11:08 | disposition home or self-care (01) ==
PROVIDERS: PCP Internal Medicine; Visit Provider Dietitian, Registered
DX: E11.65 Type 2 diabetes mellitus with hyperglycemia (principal); Z79.4 Long term (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

== ENCOUNTER 2023-10-16 12:24 | Outpatient (AMB) | payer MEDICARE, SELFPAY ==
[2023-09-02 15:43] VITALS: BP 140/52; BP 140/74; BMI 31.0
[2023-09-19 08:02] VITALS: BP 140/52; BP 140/74; BMI 31.0
--- NOTE | 2023-10-16 12:34 | A.OFFVIS_ITS ---
Intake VS Expanded 10/16/23 13:06 Height 5 ft 9 in Weight 211 lb BMI 31.2 Intake Visit Reasons: f/u Type 2 DM/LVM Allergies olmesartan Allergy (Unknown, Verified 08/01/23 13:53) Diarrhea HPI Nutrition Presentation Details Pt presents for MNT follow up for T2DM Pt presents with Miguel, Pt reports bg range from 110-130s in the fasting state including vegetables, non starchy at dinner time daily - following healthy plate method physical activity walking the dog 10 minutes 3 times/day Continues to participate in core cardio Rehab 3 times/wk fruits/day : 0-1 pastries and such: 1-2 daily Most Recent Diabetes Results: Microalb/Creat Ratio 44.7 ug/mg cr (<30) H 08/02/23 Cholesterol 128 mg/dL (<200) 08/02/23 HDL Cholesterol 37 mg/dL (>40) L 08/02/23 Triglycerides 102 mg/dL (<150) 08/02/23 Creatinine 1.54 mg/dL (0.5-1.4) H 08/02/23 Blood Urea Nitrogen 30 mg/dL (9-16) H 08/02/23 Sodium 142 mmol/L (135-145) 08/02/23 Potassium 4.1 mmol/L (3.3-5.1) 08/02/23 Chloride 105 mmol/L (96-108) 08/02/23 Carbon Dioxide 24 mmol/L (22-29) 08/02/23 Calcium 10.0 mg/dL (8.4-10.2) 08/02/23 AST 20 U/L (5-37) 08/02/23 ALT < 5 U/L (0-40) 08/02/23 Total Protein 7.8 g/dL (6.5-8.0) 08/02/23 Albumin 4.4 g/dL (3.5-5.0) 08/02/23 [facility] Medical History (Updated 10/23/23 @ 13:05 by Grazyna Kline, RD, LDN) Leukocytosis Screening for prostate cancer Generalized anxiety disorder Diarrhea Anxiety and depression Type 2 diabetes mellitus with hyperglycemia Hypercholesterolemia GERD (gastroesophageal reflux disease) Vitamin D deficiency Obesity (BMI 30-39.9) Coronary artery disease Hypertension Humeral fracture Surgical History History of endoscopic gastrointestinal surgery History of colonoscopy History of coronary artery bypass graft History of umbilical hernia repair History of tonsillectomy History of repair of rotator cuff History of cholecystectomy Family History Father Lung cancer Mother Diabetes Hypertension Social History Household Members: Spouse Housing: House Do you presently have visiting nurse or other home services: No Alcohol intake: never Patient Tobacco Use Status: Never used Tobacco Tobacco use type: Smokeless Tobacco e-Cigarette/Vaping Use: Never Used Second Hand Smoke Exposure: No Advance Directives Date on File: 03/07/22 service: No Current occupational status: retired Cognitive needs: No Hearing needs: No Vision needs: Yes (glasses) Assessment & Plan Assessment & Plan (1) Type 2 diabetes mellitus with hyperglycemia: Code(s): E11.65 - Type 2 diabetes mellitus with hyperglycemia Qualifiers: Diabetes mellitus intermediate frame tender insulin use: with nursing home use Qualified Code(s): E11.65 - Type 2 diabetes mellitus with hyperglycemia; Z79.4 - half-way (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 Plan: wt: 96 kg Est kcal needs as per MSJ: 2100 (40% carb, 30% protein/fat) Est fluid needs as per 30 ml/d: 2900 Est prot per day as per .8- 1 g/kg bw: 77- 96 Recommend fiber intake : 8-10 g per day and gradually increase to 25-28 g per day for women and 35-38 g for men or as tolerated Recommend sodium intake per day less than 2000 mg Educated patient on: ( R = reviewed V = verbalizes understanding N/R = needs review N/A = not applicable Lactose free food choices: R Healthy plate method: R * Food sources of carbohydrate, adequate serving sizes and its role in various health conditions: R * Differences between complex carbohydrates a simple carbohydrates, role of fiber in diet: R V R/V * Differences between types of fats and role in diet (mono on saturated fat fatty acids, saturated fatty acids, trans fats): R * Food sources of sodium in salt and healthy modifications for heart health in kidney health: R * Vitamins and minerals: NR * Healthy plate method concept: R * Physical activity: Benefits a precaution: R * Hydration: R Patient Instructions: Reduce on fatty foods: choose a fruit instead of pasty at least once daily Reduce on amount of fats/oils/gravies added to the foods Monitor your blood sugar 2 hours after the meal (goal less than 180) Coding Level of Care Code Nutr Indiv Subseq (13114) Diagnoses Type 2 diabetes mellitus with hyperglycemia, with long-term current use of insulin E11.65; Z79.4 Diabetes mellitus intermediate frame tender insulin use: with nursing home use Time Spent (min) 30
[2023-10-16 13:06] VITALS: BMI 31.2
== END 2023-10-16 13:04 | disposition home or self-care (01) ==
PROVIDERS: PCP Internal Medicine; Visit Provider Dietitian, Registered
DX: E11.65 Type 2 diabetes mellitus with hyperglycemia (principal); Z79.4 Long term (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

== ENCOUNTER → 2023-10-16 12:24 | Outpatient (BNVA) | payer MEDICARE, SELFPAY ==
[2023-09-19 08:02] VITALS: BP 140/52; BP 140/74; BMI 31.0
== END ==
PROVIDERS: PCP Internal Medicine; Visit Provider Dietitian, Registered
DX: E11.65 Type 2 diabetes mellitus with hyperglycemia (principal); Z79.4 Long term (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
CPT/HCPCS: 97803

== ENCOUNTER 2023-11-28 11:08 | Outpatient (AMB) | payer MEDICARE, SELFPAY ==
[2023-06-11 06:52] VITALS: BP 140/52; BP 140/74
[2023-07-09 14:49] VITALS: BP 140/52; BMI 31.0
[2023-09-19 08:02] VITALS: BP 140/52; BP 140/74; BMI 31.0
--- NOTE | 2023-11-28 11:14 | MHC.OFFVIS ---
Intake Vital Signs 11/28/23 11:15 Height 5 ft 9 in Weight 225 lb 1.471 oz BMI 33.2 BP 134/68 Blood Pressure Location Lt brachial Position Sitting Pulse 63 Pulse Source Pulse Oximeter Intake Visit Reasons: DM2-confirmed Intake Note: Patient presents today to follow up on D2MT. Last Diabetic Eye exam: 10/09/23 Last Podiatry Visit:09/2023 Random Glucose: 118 mg/dl HgA1c: 6.2% Information Security Manager Required: No Accompanied by: Spouse Allergies olmesartan Allergy (Unknown, Verified 11/28/23 11:20) Diarrhea Medication List - Last Reconciled 11/28/23 by Isaiah Aquino MD amlodipine 5 mg PO DAILY aspirin 81 mg PO DAILY blood pressure monitor (Blood Pressure Kit) As directed blood sugar diagnostic (OneTouch Ultra Test strips) As directed blood-glucose meter (ASP64Touch Ultra2 Meter) As directed carbidopa-levodopa 25-100 mg 1 tab PO TID clopidogrel (Plavix) 75 mg PO DAILY dapagliflozin propanediol (Farxiga) 10 mg PO DAILY dulaglutide (Trulicity) 1.5 mg (0.5 mL) subcut QWEEK ezetimibe (Zetia) 10 mg PO DAILY furosemide 40 mg PO DAILY glipizide ER 5 mg PO DAILY 30 days insulin glargine (Basaglar KwikPen U-100 Insulin) 23 units (0.23 mL) subcut DAILY isosorbide mononitrate ER 30 mg PO DAILY lancets (ASP64Touch UltraSoft Lancets) Testing 4 times a day lancets (OneTouch Delica Plus Lancet) As directed check the BS TID metoprolol succinate ER 200 mg PO DAILY mirtazapine 7.5 mg PO BEDTIME omeprazole 40 mg PO BID@0630,1630 pen needle, diabetic (1st Tier Unifine Pentips) As directed inject insulin 4 times a day pen needle, diabetic (BD Ultra-Fine Micro Pen Needle) test 4 times per day rosuvastatin 40 mg PO BEDTIME sertraline 25 mg PO DAILY sucralfate 1 g PO QIDACHS 90 days HPI HPI Comments History of Present Illness Details 68 YO M who is seen in consultation for T2DM at the request of PCP. Initially diagnosed with T2DM in few yrs. Never seen endo before . Was initially started on treatment with Glipizide . Metfromin was stopped because of kidney decline Current regimen Trulicity 1.5 mg Qwkly Glipizide ER 5 mg QD . Lantus 23 units Unfortunately, patient did not bring log book or glucometer to visit Not Reports low sugars . Family history of T2DM in mother and grandmother . Has eyes checked yearly, last eye exam Sep 2023 , denies retinopathy. Denies neuropathy, sees podiatry. Has nephropathy, Was on LYNDSAY/ARB stopped by renal . Has HLD, on statin. Has CAD. Not Had diabetes education. [facility] Medical History (Updated 11/28/23 @ 10:57 by Diana Cottrell, GEMA) Chronic renal insufficiency Parkinson disease Alzheimer disease Leukocytosis Screening for prostate cancer Generalized anxiety disorder Diarrhea Anxiety and depression Type 2 diabetes mellitus with hyperglycemia Hypercholesterolemia GERD (gastroesophageal reflux disease) Vitamin D deficiency Obesity (BMI 30-39.9) Coronary artery disease Hypertension Humeral fracture Surgical History (Updated 11/28/23 @ 11:00 by Diana Cottrell RN) Hx of cardiac catheterization History of endoscopic gastrointestinal surgery History of colonoscopy History of coronary artery bypass graft History of umbilical hernia repair History of tonsillectomy History of repair of rotator cuff History of cholecystectomy Family History Father Lung cancer Mother Diabetes Hypertension Social History Household Members: Spouse Housing: House Do you presently have visiting nurse or other home services: No Alcohol intake: never Patient Tobacco Use Status: Never used Tobacco Tobacco use type: Smokeless Tobacco e-Cigarette/Vaping Use: Never Used Second Hand Smoke Exposure: No Advance Directives Date on File: 03/07/22 service: No Current occupational status: retired Cognitive needs: No Hearing needs: No Vision needs: Yes (glasses) Physical Exam Vital Signs: Last Vital Signs Pulse 63 11/28/23 11:15 BP 134/68 11/28/23 11:15 BMI result Body Mass Index 33.2 Absence of Cushingoid features. Absence of acromegalic features. Neck exam reveals nl size thyroid about 15 gms. No thyroid nodules palpable. No carotid bruits present. Lungs CTA. Heart S1 S2, Reg R/R. No M/R/ G. Skin exam reveals absence of vitiligo or acanthosis nigricans. Abdominal exam reveals Soft NT/ND with NA BS. No organomegaly present. Neck Other: . Extrem Other: Visual exam of foot performed. No ulcerations or open lesions. No onchomycosis, no callouses.Pulses 2 + distally Sensation intact to monofilament exam. Vibratory sensation sensed is decreased with 128 Hz tuning fork Results AMB Hemoglobin A1c AMB Hemoglobin A1c 6.2 % Last Edit by Melva Duque on 11/28/23 11:31 Results Reviewed Results Reviewed: Laboratory Last Values Glucose (Clinic) 118 mg/dL (60-115) H 11/28/23 11:21 Hgb A1c (Clinic) 6.2 % (4.0-6.0) H 11/28/23 11:23 Assessment & Plan Assessment & Plan (1) Type 2 diabetes mellitus with hyperglycemia: Code(s): E11.65 - Type 2 diabetes mellitus with hyperglycemia Qualifiers: Diabetes mellitus termite control service representative insulin use: with mcfp use Qualified Code(s): E11.65 - Type 2 diabetes mellitus with hyperglycemia; Z79.4 - computer terminal operator (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 Plan: This 68-year-old white male with a history of type 2 diabetes being treated with Trulicity, glipizide and basal insulin with excellent glycemic control and known microvascular complications namely CKD Plan is to continue the current regimen. At this point, patient can follow up with his primary care provider and returned back to endocrinology should his HbA1c deteriorate Orders: Orders AMB Hemoglobin A1c Today E11.65 - Type 2 diabetes mellitus with hyperglycemia Coding Level of Care Code Est Pt Level 4 (97714) Diagnoses Type 2 diabetes mellitus with hyperglycemia, with long-term current use of insulin E11.65; Z79.4 Diabetes mellitus mcfp insulin use: with termite control service representative use
[2023-11-28 11:15] VITALS: BP 134/68; PULSE 63; BMI 33.2
[2023-11-28 11:26] LABS: Glucose, Whole Blood 118 mg/dL (60-115)
== END 2023-11-28 11:41 | disposition home or self-care (01) ==
PROVIDERS: PCP Internal Medicine; Visit Provider Internal Medicine Endocrinology, Diabetes & Metabolism
DX: E11.65 Type 2 diabetes mellitus with hyperglycemia (principal); Z79.4 Long term (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
CPT/HCPCS: 99214

== ENCOUNTER → 2023-11-28 11:08 | Outpatient (BNVA) | payer MEDICARE, SELFPAY ==
[2023-09-19 08:02] VITALS: BP 140/52; BP 140/74; BMI 31.0
== END ==
PROVIDERS: PCP Internal Medicine; Visit Provider Internal Medicine Endocrinology, Diabetes & Metabolism
DX: E11.65 Type 2 diabetes mellitus with hyperglycemia (principal); Z79.4 Long term (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
CPT/HCPCS: 82947; 83036; 99212

== ENCOUNTER 2023-12-02 08:43 | Day surgery (SDC) | payer MEDICARE, SELFPAY ==
[2023-09-02 15:43] VITALS: BP 140/52; BP 140/74; BMI 31.0
[2023-09-19 08:02] VITALS: BP 140/52; BP 140/74; BMI 31.0
[2023-11-28 11:33] VITALS: BMI 32.8
[2023-12-02 08:57] VITALS: BMI 34.4
[2023-12-02 09:05] VITALS: BP 158/70; PULSE 58; RESP 16; TEMP 36.3; O2SAT 96
[2023-12-02] MEDS: Lactated Ringers 1,000 ML 100 ML IVCONT (09:19)
--- NOTE | 2023-12-02 09:20 | HO.ANESPROP2 ---
Documented by User: Jazmin Cardoso NP 11/29/23 10:43 HPI - Anesthesia Eval Consult details Narrative: 68yo M for Upper Endoscopy [place] [facility] [place]. Last office visit 05/2023. Stable after cath (no intervention) Anesthesia Pre-Procedure Meds Is the patient on any of the following meds?: Dulaglutide (Trulicity) PMFSH Active Problems Active Problems: All Active Problems (Updated 11/28/23 @ 10:57 by Diana Cottrell RN) Parkinson disease (Acute) Alzheimer disease (Acute) Acute kidney injury superimposed on chronic kidney disease (Acute) Hearing loss (Acute) Anemia (Acute) Chronic HFrEF (heart failure with reduced ejection fraction) (Acute) Cognitive impairment (Acute) Obstructive sleep apnea (adult) (pediatric) (Acute) Leg swelling (Acute) NSTEMI (non-ST elevated myocardial infarction) (Acute) CHF exacerbation (Acute) Dysphagia (Acute) Leukocytosis (Acute) Unintentional weight loss (Acute) Hospital discharge follow-up (Acute) Left shoulder pain (Acute) Gastric ulcer (Acute) GI bleed (Acute) Gastritis (Acute) Gastroparesis (Acute) BPH with obstruction/lower urinary tract symptoms (Acute) Hearing difficulty (Acute) Frequency of micturition (Acute) Diarrhea (Acute) Tubular adenoma of colon (Acute) Constipation (Acute) Adult general medical exam (Acute) Low back pain (Acute) Colon cancer screening (Acute) Acute pain associated with herpes zoster (Acute) Shingles (herpes zoster) polyneuropathy (Acute) Lumbar spine strain (Acute) LLQ abdominal pain (Acute) Generalized anxiety disorder (Acute) Leukocytosis (Acute) Vitamin D deficiency (Acute) Anxiety and depression (Acute) Type 2 diabetes mellitus with hyperglycemia (Acute) Hypercholesterolemia (Acute) Obesity (BMI 30-39.9) (Acute) Coronary artery disease (Acute) Hypertension (Acute) Past Medical History Medical History (Updated 11/28/23 @ 10:57 by Diana Cottrell RN) Chronic renal insufficiency Parkinson disease Alzheimer disease Leukocytosis Screening for prostate cancer Generalized anxiety disorder Diarrhea Anxiety and depression Type 2 diabetes mellitus with hyperglycemia Hypercholesterolemia GERD (gastroesophageal reflux disease) Vitamin D deficiency Obesity (BMI 30-39.9) Coronary artery disease Hypertension Humeral fracture Family History Family History Father Lung cancer Mother Diabetes Hypertension Family history of problems with anesthesia: No Surgical History Surgical History (Updated 11/28/23 @ 11:00 by Diana Cottrell RN) Hx of cardiac catheterization History of endoscopic gastrointestinal surgery History of colonoscopy History of coronary artery bypass graft History of umbilical hernia repair History of tonsillectomy History of repair of rotator cuff History of cholecystectomy History of Problems with Anesthesia: No Social History Social History Household Members: Spouse Housing: House Do you presently have visiting nurse or other home services: No Alcohol intake: never Patient Tobacco Use Status: Never used Tobacco Tobacco use type: Smokeless Tobacco e-Cigarette/Vaping Use: Never Used Second Hand Smoke Exposure: No Use of substances other than those prescribed or required for medical reasons: No Are you DNR?: No Advance Directives: No Advance Directives Information Provided: Yes Advance Directives Date on File: 03/07/22 service: No Current occupational status: retired Cognitive needs: No Hearing needs: No Vision needs: Yes (glasses) Meds Allergies Allergy/AdvReac Type Severity Reaction Status Date / Time olmesartan Allergy Unknown Diarrhea Verified 11/28/23 11:20 Home Medications Medication Instructions Recorded Confirmed Last Taken Type carbidopa 25 mg-levodopa 100 mg 1 tab PO TID 08/01/23 11/28/23 12/02/23 History tablet Januvia 12/02/23 11/30/23 History Exam Height,Weight and Vital Signs: Height 5 ft 8.5 in Weight 99.337 kg Pertinent Lab Results Pertinent Lab Results: Laboratory Tests 11/14/23 09:23 WBC 9.6 Hgb 13.4 L Hct 43.5 Plt Count 174 D Sodium 140 Potassium 4.5 Chloride 102 Carbon Dioxide 31 H BUN 28 H Creatinine 1.46 H Narrative Narrative: EKG 04/2023 Vent. Rate : 087 BPM Atrial Rate : 087 BPM P-R Int : 148 ms QRS Dur : 092 ms QT Int : 406 ms P-R-T Axes : 037 010 062 degrees QTc Int : 488 ms Normal sinus rhythm Prolonged QT Abnormal ECG When compared with ECG of 07-APR-2023 16:24, T wave inversion now evident in Anterior leads QT has lengthened Duplicate EKG Cath 03/2023 Diffuse CAD but nothing truly intervenable. Hence on medical therapy only. ECHO 2022 Conclusions: - The left ventricular systolic function is moderately decreased. The visually estimated ejection fraction is between 30-35%. - The apical inferior, apical septum, mid inferoseptal, and mid anteroseptal segments are akinetic. - No obvious valvular pathology seen on this study. Assessment and Plan Assessment Anesthesia Assessment: Chart Reviewed Final Anesthetic Review Family History of Problems with Anesthesia: No History of Problems with Anesthesia: No Documented by User: Stephanie Saldana DO 12/02/23 09:25 HPI - Anesthesia Eval Anesthesia Pre-Procedure Meds Is the patient on any of the following meds?: Dulaglutide (Trulicity) If Yes to any meds - educate patient: Pt education - increased risk of aspiration PMFSH Past Medical History Medical History (Updated 11/28/23 @ 10:57 by Diana Cottrell RN) Chronic renal insufficiency Parkinson disease Alzheimer disease Leukocytosis Screening for prostate cancer Generalized anxiety disorder Diarrhea Anxiety and depression Type 2 diabetes mellitus with hyperglycemia Hypercholesterolemia GERD (gastroesophageal reflux disease) Vitamin D deficiency Obesity (BMI 30-39.9) Coronary artery disease Hypertension Humeral fracture Family History Family History Father Lung cancer Mother Diabetes Hypertension Family history of problems with anesthesia: No Surgical History Surgical History (Updated 11/28/23 @ 11:00 by Diana Cottrell RN) Hx of cardiac catheterization History of endoscopic gastrointestinal surgery History of colonoscopy History of coronary artery bypass graft History of umbilical hernia repair History of tonsillectomy History of repair of rotator cuff History of cholecystectomy History of Problems with Anesthesia: No Social History Social History Household Members: Spouse Housing: House Do you presently have visiting nurse or other home services: No Alcohol intake: never Patient Tobacco Use Status: Never used Tobacco Tobacco use type: Smokeless Tobacco e-Cigarette/Vaping Use: Never Used Second Hand Smoke Exposure: No Use of substances other than those prescribed or required for medical reasons: No Are you DNR?: No Advance Directives: No Advance Directives Information Provided: Yes Advance Directives Date on File: 03/07/22 service: No Current occupational status: retired Cognitive needs: No Hearing needs: No Vision needs: Yes (glasses) Meds Allergies Allergy/AdvReac Type Severity Reaction Status Date / Time olmesartan Allergy Unknown Diarrhea Verified 11/28/23 11:20 Home Medications Medication Instructions Recorded Confirmed Last Taken Type carbidopa 25 mg-levodopa 100 mg 1 tab PO TID 08/01/23 11/28/23 12/02/23 History tablet Januvia 12/02/23 11/30/23 History Exam Exam Date and Time: December 02, 2023 0920 Height,Weight and Vital Signs: Height 5 ft 8.5 in Weight 99.337 kg Height 5 ft 8.5 in Weight 104.043 kg Vital Signs Temperature 97.3 F 12/02/23 09:05 Pulse Rate 58 12/02/23 09:05 Respiratory Rate 16 12/02/23 09:05 Blood Pressure 158/70 H 12/02/23 09:05 Pulse Oximetry 96 12/02/23 09:05 Oxygen Delivery Method Room Air 12/02/23 09:05 Temperature 97.3 F 12/02/23 09:05 Pulse Rate 58 12/02/23 09:05 Respiratory Rate 16 12/02/23 09:05 Blood Pressure 158/70 H 12/02/23 09:05 Pulse Oximetry 96 12/02/23 09:05 Oxygen Delivery Method Room Air 12/02/23 09:05 Airway Mallampati Class: II TM Dist: >3cm Neck ROM: Limited Loose/Missing/Broken Teeth: Yes (edentulous) Heart: S1S2 Lungs: CTAB Assessment and Plan Assessment Anesthesia Assessment: Anesthesia Plan Discussed and Chart Reviewed Final Anesthetic Review Family History of Problems with Anesthesia: No History of Problems with Anesthesia: No NPO: Yes ASA Class: IV Final Preanesthetic Review: No Changes in Pt Med Stat, Meds/Allgs Chart Reviewed, Consent Obtained/Reviewed and Anes Risks/Benef Reviewed Patient Risk: High Procedure Risk: Low Anesthetic Plan Anesthetic Plan: MAC: and Agree w/ Assess. and Plan Disposition: Standard PACU
[2023-12-02 09:27] LABS: Glucose, Whole Blood 132 mg/dL (60-115)
[2023-12-02 10:00] VITALS: BP 117/56; PULSE 57; RESP 16; TEMP 36.3; O2SAT 97
--- NOTE | 2023-12-02 10:05 | PM.OP ---
Brief Operative Note Date of Service: 12/02/23 Pre-op diagnosis: History of gastric ulcers Post-op diagnosis: other (Healed ulcers, chronic gastritis, hiatal hernia) Procedure: EGD Surgeon: Isaiah Benito MD Anesthesia: MAC Was an Survey Research Manager used for this Procedure?: No Estimated blood loss (mL): 0 Pathology: none sent Condition: stable Disposition: PACU
--- NOTE | 2023-12-02 11:16 | OP_ITS ---
DATE OF SERVICE: 12/02/2023 SURGEON: Isaiah Benito MD INDICATIONS: The patient presents for followup of previous GI bleeding and gastric ulcers. Full consent has been obtained from him for this, including risks of bleeding and perforation. PREOPERATIVE DIAGNOSIS: History of gastric ulcers and gastrointestinal bleeding. POSTOPERATIVE DIAGNOSIS: History of gastric ulcers and gastrointestinal bleeding, healed ulcers, chronic appearing gastritis, hiatal hernia. PROCEDURE PERFORMED: Esophagogastroduodenoscopy. ESTIMATED BLOOD LOSS: COMPLICATIONS: ANESTHESIA: Monitored anesthesia care. ASSISTANTS: SPECIMENS: DESCRIPTION OF PROCEDURE: The patient was placed in the left lateral decubitus position. The Olympus video gastroscope was passed in the posterior oropharynx and upper esophagus under direct vision. The scope was passed slowly to the distal esophagus. The gastroesophageal junction appeared at 37 cm. There was no sign of any esophagitis nor Herrera mucosa. The scope entered the stomach. There was a small hiatal hernia. The scope was advanced to the pylorus, and the duodenum was cannulated to the descending portion. The duodenum including the bulb appeared normal without mass or ulceration. The scope was withdrawn back in the stomach. The gastric antrum and body had changes consistent with a chronic appearing gastritis, but without any erosions, ulceration, nor any sign of bleeding. There was good peristalsis. The scope was retroflexed visualizing the proximal stomach carefully, which appeared normal, without any sign of mass or ulceration. The scope was straightened. The stomach was carefully inspected with good insufflation of air. Again, there did not appear to be any residual ulcer disease nor any sign of neoplasm. The mucosa did have changes of the chronic gastritis with some edema and some pallor but again no inflammation. Previous biopsies from the stomach had been negative for H pylori. I did not obtain any further biopsies today as he has to go back on his Plavix and aspirin. The scope was withdrawn back to the esophagus. The esophageal mucosa appeared normal. The scope was withdrawn from the patient. He tolerated the procedure well and was returned to the recovery area in stable condition. IMPRESSION: 1. Healed gastric ulcers, chronic gastritis. 2. Hiatal hernia. PLAN: The patient will continue his current regimen of omeprazole and sucralfate. He will go back on his aspirin and Plavix today for the underlying coronary artery disease. He will also resume his Trulicity and diabetic regimen. If things are stable, he will otherwise see me on a p.r.n. basis. This has all been discussed with his . MD ANJEL Combs/SHIELA / [id number] MTDD
== END 2023-12-02 11:02 | disposition home or self-care (01) ==
PROVIDERS: PCP Internal Medicine; Visit Provider Internal Medicine
PROC: 0DJ08ZZ Inspection of Upper Intestinal Tract, Via Natural or Artificial Opening Endoscopic (ICD-10-PCS; CPT 43235; principal; 2023-12-02 09:30)
DX: K29.50 Unspecified chronic gastritis without bleeding (principal); Z87.11 Personal history of peptic ulcer disease; K44.9 Diaphragmatic hernia without obstruction or gangrene; I25.10 Atherosclerotic heart disease of native coronary artery without angina pectoris; Z95.1 Presence of aortocoronary bypass graft; I10 Essential (primary) hypertension; E11.9 Type 2 diabetes mellitus without complications; E78.5 Hyperlipidemia, unspecified; G20.A1 Parkinson's disease without dyskinesia, without mention of fluctuations; G30.9 Alzheimer's disease, unspecified; F02.80 Dementia in other diseases classified elsewhere, unspecified severity, without behavioral disturbance, psychotic disturbance, mood disturbance, and anxiety; G47.33 Obstructive sleep apnea (adult) (pediatric); Z79.4 Long term (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; Z79.84 Long term (current) use of oral hypoglycemic drugs; Z79.85 Long-term (current) use of injectable non-insulin antidiabetic drugs; Z79.02 Long term (current) use of antithrombotics/antiplatelets; Z79.82 Long term (current) use of aspirin; Z79.899 Other long term (current) drug therapy
CPT/HCPCS: 43235; 82947; J2704

== ENCOUNTER → 2023-12-10 14:39 | Outpatient (REF) | payer MEDICARE, SELFPAY ==
[2023-09-19 08:02] VITALS: BP 140/52; BP 140/74; BMI 31.0
--- NOTE | 2023-12-10 14:42 | CA_ITS ---
Transthoracic Echocardiogram Patient (Last, First, Middle): Divya Nails D Gender: Male Date of : 1955 Age: 68 Procedure Date: 12/10/2023 Procedure Type: Transthoracic Echocardiogram Location: OP Height: 175.26 cm Weight: 97.98 kg BSA: 2.13 m2 Heart Rate: 71 bpm BP: 132 / 70 mmHg Or Manager: MICHELLE Flower MD: Kenny Clark MD [place] Technician: Joe Carrion MD Symptoms: I50.22 - Chronic systolic (congestive) heart failure Study Quality: Fair/w Contrast ECG Rhythm: Sinus Conclusions: - 1. Normal LV ejection fraction 55-60% 2. Normal cardiac valvular Dopplers 3. Upper limits of normal ascending aortic size 4. No gross pericardial effusion Findings Procedure Information Contrast agent, definity, is being given per protocol without apparent complications. Left Ventricle Normal left ventricular size, thickness, and systolic function. The visually estimated ejection fraction is between 55-60%. Spectral Doppler is indicative of an impaired relaxation filling pattern. Right Ventricle Normal right ventricular cavity size and systolic function. Atria The left atrium is likely dilated. Interatrial shunt cannot be excluded. The right atrium is normal in size. Aortic Valve There is mild calcification of the aortic valve. There is no aortic valve stenosis. There is no aortic valve regurgitation. Mitral Valve Normal mitral valve structure and function. There is trace mitral valve regurgitation. There is no mitral valve stenosis. Pulmonic Valve The pulmonic valve was not well visualized. Tricuspid Valve Likely normal tricuspid valve structure and function. Tricuspid regurgitation envelope is inadequate for calculation of right ventricular systolic pressure. Great Vessels The pulmonary artery was not well visualized. Venous The inferior vena cava is normal in size and collapses greater than 50% with inspiration. Pericardium/Pleural There is no evidence of pericardial effusion. Prior Study Comparison Changes noted compared to prior study dated: 04/08/2023. LV systolic function is improved Measurements 2D Linear Measurements IVSd: 0.97 0.6-0.9/0.6-1.0 cm LVIDd: 4.83 3.9-5.3/4.2-5.9 cm LVIDd Index: 2.27 2.4-3.2/2.2-3.1 cm/m2 LVIDs: 3.19 2.0-3.6 cm LVPWd: 0.76 0.7-1.1 cm LA Diam: 4.40 2.7-3.8/3.0-4.0 cm LAIDs Index: 2.07 1.5-2.3 cm/m2 LV Mass: 176.00 67-162/88-224 g LV Mass Index: 82.63 43-95/49-115 g/m2 LVOT Diam: 2.00 3.0+(-)1.3 cm 2D Systolic Function EF 4C: 48.40 >55% EF 2C: 63.60 >55% EF BiP: 57.40 >55% Mitral Valve MV Pk E: 0.76 MV PK A: 0.80 MV Decel Time: 192.00 E/A: 1.00 E'Lateral: 8.70 E'Medial: 6.42 E/E' Med: 11.90 E/E' Lat: 8.80 PHT: 56.00 MVA PHT: 3.93 Decel Armstrong: 3.98 Aortic Valve AoV Pk Niko: 0.91 AoV Mn Niko: 0.68 AoV VTI: 0.24 AoV Pk Grad: 3.00 Aov Mn Grad: 2.00 DON Cont.VTI: 2.25 LVOT LVOT Pk Niko: 0.65 LVOT Mn Niko: 0.47 LVOT VTI: 0.17 LVOT Pk Grad: 2.00 LVOT Mn Grad: 1.00 LVOT Diam: 2.00 LVOT Area: 3.14 Diastolic Function MV Pk E: 0.76 MV Pk A: 0.80 E/A: 1.00 E'Medial: 6.42 E/E' Med: 11.90 E' Laterial: 8.70 E/E' Lat: 8.80 Right Ventricle TAPSE (mm): 17.30 TVS' Niko: 7.94 Tricuspid Valve RA Press: 3.00 Great Vessels Aorta Sinus of Valsalva: 3.30 2.0-3.5 cm Ao Asc: 3.60 2.1-3.4 cm Pulmonary Valve PV Pk Niko: 0.91 Peak PV Grad: 3.00 Updated in Other Vendor System with Status of Final Joe Carrion MD electronically signed on 12/11/2023 4:46:34 PM with status of Final
== END ==
LOC: HO.CARD 14:39
PROVIDERS: PCP Internal Medicine; Visit Provider Internal Medicine
DX: I50.22 Chronic systolic (congestive) heart failure (principal)
CPT/HCPCS: 93306; Q9957

== ENCOUNTER → 2023-12-10 14:42 | Outpatient (BNV) | payer MEDICARE, SELFPAY ==
[2023-09-19 08:02] VITALS: BP 140/52; BP 140/74; BMI 31.0
== END ==
PROVIDERS: PCP Internal Medicine; Visit Provider Internal Medicine Cardiovascular Disease
DX: I50.22 Chronic systolic (congestive) heart failure (principal)
CPT/HCPCS: 93306

== ENCOUNTER 2023-12-16 08:45 | Outpatient (AMB) | payer MEDICARE, SELFPAY ==
[2023-09-19 08:02] VITALS: BP 140/52; BP 140/74; BMI 31.0
[2023-12-16 08:47] VITALS: BP 138/84; PULSE 64; O2SAT 96; BMI 32.8
--- NOTE | 2023-12-16 08:47 | MHC.PC.OV ---
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 Member Required: No Allergies olmesartan Allergy (Unknown, Verified 12/16/23 08:48) Diarrhea Tobacco use date assessed: 12/16/23 Fall risk assessment: No Falls in past year Last assessed Fall Risk: 12/16/23 Dental Screening Dental Screen Date: 12/16/23 Did you have a dental visit in the last 12 months?: No Did you have a dental problem in the last 6 months where you did not have access to dental care?: No HPI follow up HPI Details Slight proptosis likely on the basis of increased intraorbital fat deposition which may be seen in the setting of chronic exogenous steroid use for thyroid eye disease and can be correlated clinically. 5. Leftward nasal septal deviation with leftward bony spur impinging on the left inferior nasal turbinate. [facility] Medical History (Updated 12/16/23 @ 09:28 by Luke Albright MD) Chronic renal insufficiency Parkinson disease Alzheimer disease Leukocytosis Screening for prostate cancer Generalized anxiety disorder Diarrhea Anxiety and depression Type 2 diabetes mellitus with hyperglycemia Hypercholesterolemia GERD (gastroesophageal reflux disease) Vitamin D deficiency Obesity (BMI 30-39.9) Coronary artery disease Hypertension Humeral fracture Surgical History (Updated 11/28/23 @ 11:00 by Diana Cottrell RN) Hx of cardiac catheterization History of endoscopic gastrointestinal surgery History of colonoscopy History of coronary artery bypass graft History of umbilical hernia repair History of tonsillectomy History of repair of rotator cuff History of cholecystectomy Family History Father Lung cancer Mother Diabetes Hypertension Social History Household Members: Spouse Housing: House Do you presently have visiting nurse or other home services: No Alcohol intake: never Patient Tobacco Use Status: Never used Tobacco Tobacco use type: Smokeless Tobacco e-Cigarette/Vaping Use: Never Used Second Hand Smoke Exposure: No Advance Directives Date on File: 03/07/22 service: No Current occupational status: retired Cognitive needs: No Hearing needs: No Vision needs: Yes (glasses) Questionnaire Thrive Questionnaire Date Thrive assessed: 12/16/23 I am a: Patient What is your living situation today?: I have a steady place to live Within the past 12 months, did the food you bought not last and you didn't have the money to get more?: Never true Within the past 12 months, did you worry whether your food would run out before you got money to buy more?: Never true Do you have trouble paying for medicines?: No Do you have trouble getting transportation to medical appointments?: No Do you have trouble paying your heating and electricity bill?: No Do you have trouble taking care of your child, family member or friend?: No Do you have trouble with day-to-day activities such as bathing, preparing meals, shopping, managing finances, etc.?: No Are you currently unemployed and looking for a job?: No Are you interested in more education?: No Please select the resources that you would like help with: None THRIVE Score: 0 AUDIT C Alcohol Use Questionnaire (AUDIT-C) 1. How often do you have a drink containing alcohol?: Never 3. How often do you have six or more drinks on one occasion?: Never Total Score: 0 Score Reviewed/Action Taken: Yes (Reviewed no action needed at this time) RHIANNA-7 AMB Questionnaire RHIANNA-7 Date RHIANNA - 7 assessed: 12/16/23 Source: Developed by Drs. Isaiah Han, Shanna Otero, Mike Flores and colleagues, with an educational filippo from [employer]. Physical exam (Primary Care) Vital Signs: Last Vital Signs Pulse 64 12/16/23 08:47 BP 138/84 12/16/23 08:47 Pulse Ox 96 12/16/23 08:47 Oxygen Delivery Method Room Air 12/16/23 08:47 BMI result Body Mass Index 32.8 Tobacco/Smoking Status: Tobacco use Status Tobacco use date assessed 12/16/23 12/16/23 08:56 Patient Tobacco Use Status Never used Tobacco 12/16/23 08:56 Tobacco use type Smokeless Tobacco 12/16/23 08:56 e-Cigarette/Vaping Use Never Used 12/16/23 08:56 Thrive Assessment: Date of Thrive Assessment Date Thrive assessed 02/26/24 02/26/24 08:56 Const General: alert; No acute distress Eyes Conjunctivae: conjunctivae normal Resp Auscultation: clear to auscultation bilaterally Cardio Rate: regular rate Rhythm: regular rhythm GI Inspection: Yes normal to inspection Extrem General: Yes normal to inspection and No edema Assessment and Plan Assessment & Plan (1) Type 2 diabetes mellitus with hyperglycemia: Code(s): E11.65 - Type 2 diabetes mellitus with hyperglycemia Qualifiers: Diabetes mellitus long term care phlebotomist insulin use: with long term care phlebotomist use Qualified Code(s): E11.65 - Type 2 diabetes mellitus with hyperglycemia; Z79.4 - termite inspector (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 Plan: Decrease the amount of carbohydrate intake, pasta, bread, rice and potatoes are all sugar and that is aside from all the sweet stuff, remember that fruits are good but they are Sweet also. Hemoglobin A1c goal of less than 7.0. Patient on [facility]. Has been seen by Endocrinology and has turned over the patient to primary care (2) Obesity (BMI 30-39.9): Code(s): E66.9 - Obesity, unspecified Plan: Diet and exercise (3) Hypercholesterolemia: Code(s): E78.00 - Pure hypercholesterolemia, unspecified Plan: Avoid fried foods, chicken skin, eggs, butter margarine, pastries and meat. Be it pork or beef they have a lot of cholesterol LDL goal of less than 70 and triglyceride of less than 150. July 2023 last blood work (4) Coronary artery disease: Comment: hx CABG-follows w/HCS Code(s): I25.10 - Atherosclerotic heart disease of [place] coronary artery without angina pectoris Qualifiers: Coronary Disease-Associated Artery/Lesion type: [place] artery [place] vs. transplanted heart: [place] heart Associated angina: without angina Qualified Code(s): I25.10 - Atherosclerotic heart disease of [place] coronary artery without angina pectoris Plan: Control the cholesterol, weight, blood pressure, diabetes continue with clopidogrel and aspirin after being held due to GI bleed (5) Gastric ulcer: Comment: January 2023 Code(s): K25.9 - Gastric ulcer, unspecified as acute or chronic, without hemorrhage or perforation Plan: EGD done healing ulcers (6) CKD (chronic kidney disease): Code(s): N18.9 - Chronic kidney disease, unspecified Orders: Orders Complete Blood Count Auto Diff 3 Months E11.65 - Type 2 diabetes mellitus with hyperglycemia, Z79.4 - termite inspector (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 Hemoglobin A1c 3 Months E11.65 - Type 2 diabetes mellitus with hyperglycemia, Z79.4 - correction (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 Lipid Panel 3 Months E11.65 - Type 2 diabetes mellitus with hyperglycemia, E78.00 - Pure hypercholesterolemia, unspecified, Z79.4 - termite inspector (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 Vitamin B12 and Folate 3 Months E11.65 - Type 2 diabetes mellitus with hyperglycemia, Z79.4 - correction (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 Creatinine Urine 3 Months E11.65 - Type 2 diabetes mellitus with hyperglycemia, Z79.4 - termite inspector (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 Comprehensive Met. Panel 3 Months E11.65 - Type 2 diabetes mellitus with hyperglycemia, Z79.4 - termite inspector (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 Free T4 (Free Thyroxine) 3 Months E11.65 - Type 2 diabetes mellitus with hyperglycemia, Z79.4 - correction (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 Thyroid Stimulating Hormone 3 Months E11.65 - Type 2 diabetes mellitus with hyperglycemia, Z79.4 - termite inspector (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 Prostate Specific Antigen Scr 3 Months E11.65 - Type 2 diabetes mellitus with hyperglycemia, Z79.4 - termite inspector (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 Microalbumin, Random (w Creat) 3 Months E11.65 - Type 2 diabetes mellitus with hyperglycemia, Z79.4 - termite inspector (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 Referrals Nephrology Referral N18.9 - Chronic kidney disease, unspecified Coding Level of Care Code Est Pt Level 4 (91203) Diagnoses Type 2 diabetes mellitus with hyperglycemia, with long-term current use of insulin E11.65; Z79.4 Diabetes mellitus long term care phlebotomist insulin use: with long term care phlebotomist use Obesity (BMI 30-39.9) E66.9 Hypercholesterolemia E78.00 Coronary artery disease involving [place] coronary artery of [place] heart without angina pectoris I25.10 Coronary Disease-Associated Artery/Lesion type: [place] artery [place] vs. transplanted heart: [place] heart Associated angina: without angina Gastric ulcer K25.9 CKD (chronic kidney disease) N18.9
== END 2023-12-16 09:38 | disposition home or self-care (01) ==
PROVIDERS: PCP Internal Medicine; Visit Provider Internal Medicine
DX: E11.65 Type 2 diabetes mellitus with hyperglycemia (principal); Z79.4 Long term (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; E66.9 Obesity, unspecified; Z68.32 Body mass index [BMI] 32.0-32.9, adult; E78.00 Pure hypercholesterolemia, unspecified; I25.10 Atherosclerotic heart disease of native coronary artery without angina pectoris; K25.9 Gastric ulcer, unspecified as acute or chronic, without hemorrhage or perforation; N18.9 Chronic kidney disease, unspecified
CPT/HCPCS: 99214

== ENCOUNTER 2023-12-19 12:47 | Outpatient (AMB) | payer MEDICARE, SELFPAY ==
[2023-06-11 06:52] VITALS: BP 140/52; BP 140/74; BMI 31.0
[2023-09-19 08:02] VITALS: BP 140/52; BP 140/74; BMI 31.0
[2023-12-19 12:50] VITALS: BP 126/64; PULSE 77; BMI 33.4
--- NOTE | 2023-12-19 12:50 | A.OFFVIS_ITS ---
Intake Vital Signs 12/19/23 12:50 Height 5 ft 8.5 in Weight 222 lb 10.67 oz BMI 33.4 BP 126/64 Blood Pressure Location Lt brachial Position Sitting Pulse 77 Pulse Source Pulse Oximeter Intake Visit Reasons: 6 mth f/up Intake Note: pt here for 6 mnht f/up Firmware Manager Required: No Accompanied by: Spouse Allergies olmesartan Allergy (Unknown, Verified 12/16/23 08:48) Diarrhea Medication List - Last Reconciled 12/19/23 by Kenny Clark MD amlodipine 5 mg PO DAILY aspirin 81 mg PO DAILY blood pressure monitor (Blood Pressure Kit) As directed blood sugar diagnostic (The 517 travelTouch Ultra Test strips) As directed blood-glucose meter (Medicastuch Ultra2 Meter) As directed carbidopa-levodopa 25-100 mg 1 tab PO TID clopidogrel (Plavix) 75 mg PO DAILY dapagliflozin propanediol (Farxiga) 10 mg PO DAILY dulaglutide (Trulicity) 1.5 mg (0.5 mL) subcut QWEEK ezetimibe (Zetia) 10 mg PO DAILY furosemide 40 mg PO DAILY glipizide ER 5 mg PO DAILY 30 days insulin glargine (Basaglar KwikPen U-100 Insulin) 23 units (0.23 mL) subcut DAILY isosorbide mononitrate ER 30 mg PO DAILY [Januvia ] lancets (The 517 travelTouch UltraSoft Lancets) Testing 4 times a day lancets (The 517 travelTouch Delica Plus Lancet) As directed check the BS TID metoprolol succinate ER 200 mg PO DAILY mirtazapine 7.5 mg PO BEDTIME omeprazole 40 mg PO BID@0630,1630 pen needle, diabetic (1st Tier Unifine Pentips) As directed inject insulin 4 times a day pen needle, diabetic (BD Ultra-Fine Micro Pen Needle) test 4 times per day rosuvastatin 40 mg PO BEDTIME sertraline 25 mg PO DAILY sucralfate 1 g PO QIDACHS 90 days HPI HPI Comments History of Present Illness Details Divya returns for follow-up regarding coronary artery disease. In 2022, he was hospitalized for NSTEMI. Echocardiogram had cardiomyopathy with wall motion abnormalities. Then sent to [facility] for cardiac catheterization but no interventions performed. Overall, doing fine. No new complaints. No angina or shortness of breath or in fact anything cardiac sounding. There is also history GI bleeding and endoscopy had then shown gastric ulcers. Patient states that is also going fine. [facility] Medical History (Updated 12/19/23 @ 12:57 by Kenny Clark MD) Chronic renal insufficiency Parkinson disease Alzheimer disease Leukocytosis Screening for prostate cancer Generalized anxiety disorder Diarrhea Anxiety and depression Type 2 diabetes mellitus with hyperglycemia Hypercholesterolemia GERD (gastroesophageal reflux disease) Vitamin D deficiency Obesity (BMI 30-39.9) Coronary artery disease Hypertension Humeral fracture Surgical History Hx of cardiac catheterization History of endoscopic gastrointestinal surgery History of colonoscopy History of coronary artery bypass graft History of umbilical hernia repair History of tonsillectomy History of repair of rotator cuff History of cholecystectomy Family History Father Lung cancer Mother Diabetes Hypertension Social History Household Members: Spouse Housing: House Do you presently have visiting nurse or other home services: No Alcohol intake: never Patient Tobacco Use Status: Never used Tobacco Tobacco use type: Smokeless Tobacco e-Cigarette/Vaping Use: Never Used Second Hand Smoke Exposure: No Advance Directives Date on File: 03/07/22 service: No Current occupational status: retired Cognitive needs: No Hearing needs: No Vision needs: Yes (glasses) Review of Systems Const Denies chills, Denies fatigue, Denies fever(s), Denies frequent falls, Denies weakness, Denies weight gain and Denies weight loss ENT Denies dizziness Card Denies chest pain, Denies leg edema, Denies lightheadedness, Denies palpitations, Denies dyspnea and Denies dyspnea on exertion Resp Denies cough, Denies dyspnea and Denies dyspnea on exertion GI Denies hematochezia Musc Denies abnormal gait, Denies muscle weakness, Denies numbness, Denies radiating pain into limb and Denies tingling Neuro Denies abnormal gait, Denies dizziness, Denies frequent falls, Denies numbness, Denies tingling and Denies weakness Endo Denies fatigue and Denies palpitations Physical Exam Vital Signs: Last Vital Signs Pulse 77 12/19/23 12:50 BP 126/64 12/19/23 12:50 BMI result Body Mass Index 33.4 Const General: comfortable and no acute distress Orientation/consciousness: patient oriented x3 HEENT Other: Unremarkable Head: Yes normal to inspection Neck Neck: Yes normal visual inspection Chest Chest palpation & inspection: normal inspection of the chest Resp Auscultation: clear to auscultation bilaterally Cardio Palpation: normal PMI Heart sounds: S1 normal heart sound present, S2 normal heart sound present, no gallops, no murmurs and no rubs GI Palpation (GI): Soft to palpation Back/Spine/Pelvis Other: unremarkable Skin General skin exam: no rashes or lesions noted Neuro General: patient oriented x3 Extrem General: Yes normal to inspection Psych Mental Status: mental status grossly normal Assessment & Plan Assessment & Plan (1) Coronary artery disease: Code(s): I25.10 - Atherosclerotic heart disease of [place] coronary artery without angina pectoris Qualifiers: Associated angina: without angina Coronary Disease-Associated Artery/Lesion type: [place] artery [place] vs. transplanted heart: [place] heart Qualified Code(s): I25.10 - Atherosclerotic heart disease of [place] coronary artery without angina pectoris Plan: In the cardiac catheterization, diffuse CAD but nothing truly intervenable. Hence on medical therapy only. Can continue aspirin. Due to GI bleeding history, stop Plavix. Continue statins. Lipids controlled. (2) Chronic HFrEF (heart failure with reduced ejection fraction): Code(s): I50.22 - Chronic systolic (congestive) heart failure Plan: Initial echocardiogram with LVEF of 30-35% with more recently normalized. Continue diuretics. Continue beta-blockers. He was on olmesartan but he also has renal insufficiency with rising creatinine hence that has been stopped. Otherwise, on Farxiga. (3) Hypertension: Code(s): I10 - Essential (primary) hypertension Qualifiers: Hypertension type: essential hypertension Qualified Code(s): I10 - Essential (primary) hypertension Plan: Stable. No changes. Plan Discussed with who came for appointment. Medications: Discontinued clopidogrel (Plavix) Discontinued Reason: Doctor's Order 75 mg PO DAILY 30 tabs 4RF Coding Level of Care Code Est Pt Level 4 (42354) Diagnoses Coronary artery disease involving [place] coronary artery of [place] heart without angina pectoris I25.10 Associated angina: without angina Coronary Disease-Associated Artery/Lesion type: [place] artery [place] vs. transplanted heart: [place] heart Chronic HFrEF (heart failure with reduced ejection fraction) I50.22 Essential hypertension I10 Hypertension type: essential hypertension
== END 2023-12-19 13:06 | disposition home or self-care (01) ==
PROVIDERS: PCP Internal Medicine; Visit Provider Internal Medicine
DX: I25.10 Atherosclerotic heart disease of native coronary artery without angina pectoris (principal); I50.22 Chronic systolic (congestive) heart failure; I10 Essential (primary) hypertension
CPT/HCPCS: 99214

== ENCOUNTER → 2023-12-19 12:47 | Outpatient (BNVA) | payer MEDICARE, SELFPAY ==
[2023-09-19 08:02] VITALS: BP 140/52; BP 140/74; BMI 31.0
== END ==
PROVIDERS: PCP Internal Medicine; Visit Provider Internal Medicine
DX: I25.10 Atherosclerotic heart disease of native coronary artery without angina pectoris (principal); I11.0 Hypertensive heart disease with heart failure; I50.22 Chronic systolic (congestive) heart failure
CPT/HCPCS: 99212

== ENCOUNTER 2024-01-03 12:14 | Outpatient (REF) | payer MEDICARE, SELFPAY ==
[2023-09-19 08:02] VITALS: BP 140/52; BP 140/74; BMI 31.0
== END 2024-01-03 12:15 | disposition home or self-care (01) ==
LOC: HO.SH 12:14
PROVIDERS: Visit Provider Internal Medicine
DX: Z01.10 Encounter for examination of ears and hearing without abnormal findings (principal); H90.3 Sensorineural hearing loss, bilateral
CPT/HCPCS: 92557

== ENCOUNTER 2024-01-03 13:32 | Outpatient (REF) | payer SELFPAY ==
[2023-09-19 08:02] VITALS: BP 140/52; BP 140/74; BMI 31.0
--- NOTE | 2024-01-06 08:11 | MHC.AU.MED ---
Medical Clearance for Hearing Instrumentation Date: 01/06/24 Patient Name: Divya Nails Date of : 1955 Primary Care Provider: Referring Provider: Luke Albright MD We have seen your patient on 01/06/24 and have determined that they are a candidate for amplification (See accompanying report). Specifically, they would benefit from: Hearing aid use in both ears There is a statute that addresses Medical Evaluation Requirements prior to fitting a patient with a hearing aid. According to [place] statute 265 CMR:6.03(1), (a) General. Except as provided in 265 CMR 6.03(1)(b), a speech/language therapist shall not sell a hearing aid unless the prospective user has presented to the speech/language therapist a written statement signed by a licensed physician that states that the patient's hearing loss has been medically evaluated and the patient may be considered a candidate for a hearing aid. The medical evaluation must have taken place within the preceding six months. Please note: Due to the [place] Statute referenced above, we cannot accept a signature other than that of a licensed physician. HISTORIAN RESEARCH ASSISTANT and PA signatures cannot be accepted. I am in agreement with the above recommendation. There is no medical contraindication for hearing instrumentation. Physician Signature Date Physician Name (Printed)
== END 2024-01-03 13:33 | disposition home or self-care (01) ==
LOC: HO.HAP 13:32
PROVIDERS: Visit Provider Internal Medicine
DX: Z46.1 Encounter for fitting and adjustment of hearing aid (principal); H90.3 Sensorineural hearing loss, bilateral
CPT/HCPCS: 92590

== ENCOUNTER 2024-01-15 10:26 | Outpatient (AMB) | payer MEDICARE, SELFPAY ==
[2023-09-19 08:02] VITALS: BP 140/52; BP 140/74; BMI 31.0
[2024-01-15 10:42] VITALS: BMI 33.0
--- NOTE | 2024-01-15 10:42 | MHC.AMNUTRGE ---
Intake VS Expanded 01/15/24 10:42 Height 5 ft 8.5 in Weight 220 lb 0.341 oz BMI 33.0 Intake Visit Reasons: t2dm Allergies olmesartan Allergy (Unknown, Verified 12/16/23 08:48) Diarrhea HPI Nutrition Presentation Details Pt presents for MNT f/u T2DM Pt presents with during this appointment. Pt reports doing well Working on following healthy plate metho d and reducing on empty calorie snacks. Breakfast varies: bagel with eggs and a yogurt or , cheerios /raisin bran and almond milk or hot cereal almond milk snack on peanut butter and glass of milk or water L: salads with chicken or fish or sand with vegetables and glass of milk or water D: healthy plate method , water Most recent A1c at 6.2 % on 11/2023 Most Recent Diabetes Results: Creatinine 1.46 mg/dL (0.5-1.4) H 11/14/23 Blood Urea Nitrogen 28 mg/dL (9-16) H 11/14/23 Sodium 140 mmol/L (135-145) 11/14/23 Potassium 4.5 mmol/L (3.3-5.1) 11/14/23 Chloride 102 mmol/L (96-108) 11/14/23 Carbon Dioxide 31 mmol/L (22-29) H 11/14/23 Calcium 9.8 mg/dL (8.4-10.2) 11/14/23 AST 17 U/L (5-37) 11/14/23 ALT 11 U/L (0-40) 11/14/23 Total Protein 7.2 g/dL (6.5-8.0) 11/14/23 Albumin 4.2 g/dL (3.5-5.0) 11/14/23 [facility] Medical History (Updated 12/19/23 @ 12:57 by Kenny Clark MD) Chronic renal insufficiency Parkinson disease Alzheimer disease Leukocytosis Screening for prostate cancer Generalized anxiety disorder Diarrhea Anxiety and depression Type 2 diabetes mellitus with hyperglycemia Hypercholesterolemia GERD (gastroesophageal reflux disease) Vitamin D deficiency Obesity (BMI 30-39.9) Coronary artery disease Hypertension Humeral fracture Surgical History Hx of cardiac catheterization History of endoscopic gastrointestinal surgery History of colonoscopy History of coronary artery bypass graft History of umbilical hernia repair History of tonsillectomy History of repair of rotator cuff History of cholecystectomy Family History Father Lung cancer Mother Diabetes Hypertension Social History Household Members: Spouse Housing: House Do you presently have visiting nurse or other home services: No Alcohol intake: never Patient Tobacco Use Status: Never used Tobacco Tobacco use type: Smokeless Tobacco e-Cigarette/Vaping Use: Never Used Second Hand Smoke Exposure: No Advance Directives Date on File: 03/07/22 service: No Current occupational status: retired Cognitive needs: No Hearing needs: No Vision needs: Yes (glasses) Assessment & Plan Assessment & Plan (1) Type 2 diabetes mellitus with hyperglycemia: Code(s): E11.65 - Type 2 diabetes mellitus with hyperglycemia Qualifiers: Diabetes mellitus prison insulin use: with weapons officer naval activity use Qualified Code(s): E11.65 - Type 2 diabetes mellitus with hyperglycemia; Z79.4 - detention (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 Plan: wt: 96 kg Est kcal needs as per MSJ: 2100 (40% carb, 30% protein/fat) Est fluid needs as per 30 ml/d: 2900 Est prot per day as per .8- 1 g/kg bw: 77- 96 Recommend fiber intake : 8-10 g per day and gradually increase to 25-28 g per day for women and 35-38 g for men or as tolerated Recommend sodium intake per day less than 2000 mg Educated patient on: ( R = reviewed V = verbalizes understanding N/R = needs review N/A = not applicable Lactose free food choices: R Healthy plate method: R Food sources of carbohydrate, adequate serving sizes and its role in various health conditions: R Differences between complex carbohydrates a simple carbohydrates, role of fiber in diet: R V R/V Differences between types of fats and role in diet (mono on saturated fat fatty acids, saturated fatty acids, trans fats): R Food sources of sodium in salt and healthy modifications for heart health in kidney health: R Vitamins and minerals: R Healthy plate method concept: R Physical activity: Benefits a precaution: R Hydration: R Hypoglycemia signs, symptoms, prevention and treatment: R, V Patient Instructions: Always carry glucose tablets with you, monitor blood sugar if having symptoms, treat low blood sugar (blood sugar below 70) by having 1/2 c of juice or 3-4 glucose table, recheck blood sugar 15 minutes after and repeat treatment if blood sugar continues below 70. Reports any low blood sugar reaction to your doctor for further evaluation. - Coding Level of Care Code Nutr Indiv Subseq (65864) Diagnoses Type 2 diabetes mellitus with hyperglycemia, with long-term current use of insulin E11.65; Z79.4 Diabetes mellitus weapons officer naval activity insulin use: with prison use Time Spent (min) 20
== END 2024-01-15 11:10 | disposition home or self-care (01) ==
PROVIDERS: PCP Internal Medicine; Visit Provider Dietitian, Registered
DX: E11.65 Type 2 diabetes mellitus with hyperglycemia (principal); Z79.4 Long term (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

== ENCOUNTER → 2024-01-15 10:26 | Outpatient (BNVA) | payer MEDICARE, SELFPAY ==
[2023-09-19 08:02] VITALS: BP 140/52; BP 140/74; BMI 31.0
== END ==
PROVIDERS: PCP Internal Medicine; Visit Provider Dietitian, Registered
DX: E11.65 Type 2 diabetes mellitus with hyperglycemia (principal); Z71.3 Dietary counseling and surveillance; Z79.4 Long term (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; E66.9 Obesity, unspecified; Z68.33 Body mass index [BMI] 33.0-33.9, adult
CPT/HCPCS: 97803

== ENCOUNTER 2024-02-28 13:35 | Outpatient (REF) | payer SELFPAY ==
[2023-09-19 08:02] VITALS: BP 140/52; BP 140/74; BMI 31.0
== END 2024-02-28 13:36 | disposition home or self-care (01) ==
LOC: HO.HAP 13:35
PROVIDERS: Visit Provider Internal Medicine
DX: Z46.1 Encounter for fitting and adjustment of hearing aid (principal); H90.3 Sensorineural hearing loss, bilateral
CPT/HCPCS: 92700; V5260

== ENCOUNTER 2024-03-20 13:18 | Outpatient (REF) | payer SELFPAY ==
[2023-09-19 08:02] VITALS: BP 140/52; BP 140/74; BMI 31.0
== END 2024-03-20 13:19 | disposition home or self-care (01) ==
LOC: HO.HAP 13:18
PROVIDERS: Visit Provider Internal Medicine
DX: Z13.89 Encounter for screening for other disorder (principal)

== ENCOUNTER 2024-03-25 11:05 | Outpatient (AMB) | payer MEDICARE, SELFPAY ==
[2023-09-19 08:02] VITALS: BP 140/52; BP 140/74; BMI 31.0
[2024-03-25 11:18] VITALS: BP 128/70; PULSE 73; O2SAT 98; BMI 32.2
--- NOTE | 2024-03-25 11:18 | A.OFFPC_ITS ---
Vital Signs 03/25/24 11:18 Height 5 ft 8.5 in Weight 215 lb BMI 32.2 BP 128/70 Blood Pressure Location Lt brachial Position Sitting Pulse 73 Pulse Source Pulse Oximeter Pulse Oximetry (%) 98 Oxygen Delivery Method Room Air Intake Visit Reasons: cad, DM Allergies olmesartan Allergy (Unknown, Verified 03/25/24 11:18) Diarrhea Tobacco use date assessed: 12/16/23 Fall risk assessment: No Falls in past year Last assessed Fall Risk: 03/25/24 Dental Screening Dental Screen Date: 03/25/24 Did you have a dental visit in the last 12 months?: No Did you have a dental problem in the last 6 months where you did not have access to dental care?: No Was dental information given to patient?: No HPI cad, DM HPI Details 69-year-old obese male with controlled d iabetes mellitus hypercholesterolemia coronary artery disease(2022) cardiomyopathy and chronic kidney disease last seen in 12/10/2023. Patient's colonoscopy is up-to-date 08/09/2022 with tubular adenoma. Review of the notes follows up with Cardiology in 12/10/2023 patient has coronary artery disease/diffuse but nothing intervenable continue with aspirin echocardiogram 30 35% and most recent normalized. Blood work not done yet. [facility] Medical History (Updated 03/25/24 @ 11:27 by Luke Albright MD) Chronic renal insufficiency Parkinson disease Alzheimer disease Leukocytosis Screening for prostate cancer Generalized anxiety disorder Diarrhea Anxiety and depression Type 2 diabetes mellitus with hyperglycemia Hypercholesterolemia GERD (gastroesophageal reflux disease) Vitamin D deficiency Obesity (BMI 30-39.9) Coronary artery disease Hypertension Humeral fracture Surgical History Hx of cardiac catheterization History of endoscopic gastrointestinal surgery History of colonoscopy History of coronary artery bypass graft History of umbilical hernia repair History of tonsillectomy History of repair of rotator cuff History of cholecystectomy Family History Father Lung cancer Mother Diabetes Hypertension Social History Household Members: Spouse Housing: House Do you presently have visiting nurse or other home services: No Alcohol intake: never Patient Tobacco Use Status: Never used Tobacco Tobacco use type: Smokeless Tobacco e-Cigarette/Vaping Use: Never Used Second Hand Smoke Exposure: No Advance Directives Date on File: 03/07/22 service: No Current occupational status: retired Cognitive needs: No Hearing needs: No Vision needs: Yes (glasses) Questionnaire PHQ-9 Over the last 2 weeks, how often have you been bothered by any of the following problems? 1. Little interest or pleasure in doing things: several days 2. Feeling down, depressed, or hopeless: several days 3. Trouble falling or staying asleep, or sleeping too much: several days 4. Feeling tired or having little energy: several days 5. Poor appetite or overeating: several days 6. Feeling bad about yourself - or that you are a failure or have let yourself or your family down: several days 7. Trouble concentrating on things, such as reading the newspaper or watching television: several days 8. Moving or speaking so slowly that other people could have noticed. Or the opposite - being so fidgety or restless that you have been moving around a lot more than usual: several days 9. Thoughts that you would be better off or of hurting yourself in some way: not at all Total score: 8 Depression Screening Interpretation: Positive Depression Screening Done: Yes Source: Developed by Drs. Isaiah Han, Mike Neal and colleagues, with an educational filippo from [employer] Thrive Questionnaire Date Thrive assessed: 12/16/23 AUDIT C Alcohol Use Questionnaire (AUDIT-C) 1. How often do you have a drink containing alcohol?: Never 3. How often do you have six or more drinks on one occasion?: Never Total Score: 0 Score Reviewed/Action Taken: Yes (Reviewed no action needed at this time) RHIANNA-7 AMB Questionnaire RHIANNA-7 Date RHIANNA - 7 assessed: 12/16/23 Source: Developed by Drs. Isaiah Han, Mike Neal and colleagues, with an educational filippo from [employer]. Physical exam (Primary Care) Vital Signs: Last Vital Signs Pulse 73 03/25/24 11:18 BP 128/70 03/25/24 11:18 Pulse Ox 98 03/25/24 11:18 Oxygen Delivery Method Room Air 03/25/24 11:18 BMI result Body Mass Index 32.2 Tobacco/Smoking Status: Tobacco use Status Tobacco use date assessed 12/16/23 03/25/24 11:27 Patient Tobacco Use Status Never used Tobacco 03/25/24 11:27 Tobacco use type Smokeless Tobacco 03/25/24 11:27 e-Cigarette/Vaping Use Never Used 03/25/24 11:27 PHQ-9: PHQ-9 Score PHQ-9: Total score 8 03/25/24 11:27 Depression Screening Interpretation: Positive Thrive Assessment: Date of Thrive Assessment Date Thrive assessed 12/16/23 03/25/24 11:27 Const General: alert; No acute distress Eyes Conjunctivae: conjunctivae normal Resp Auscultation: clear to auscultation bilaterally Cardio Rate: regular rate Rhythm: regular rhythm GI Inspection: Yes normal to inspection Extrem General: Yes normal to inspection and No edema Results AMB Hemoglobin A1c AMB Hemoglobin A1c 6.1 % Last Edit by Tequila Perdue CMA on 03/25/24 11 :33 Assessment and Plan Assessment & Plan (1) Type 2 diabetes mellitus with hyperglycemia: Code(s): E11.65 - Type 2 diabetes mellitus with hyperglycemia Qualifiers: Diabetes mellitus bed bug exterminator insulin use: with bed bug exterminator use Qualified Code(s): E11.65 - Type 2 diabetes mellitus with hyperglycemia; Z79.4 - custodial (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 Plan: Decrease the amount of carbohydrate intake, pasta, bread, rice and potatoes are all sugar and that is aside from all the sweet stuff, remember that fruits are good but they are Sweet also. Hemoglobin A1c goal of less than 7.0. Patient on Farxiga 10 mg once a day Trulicity 1.5 mg once a week glipizide 5 mg once a day Basaglar 23 units once a day (2) Obesity (BMI 30-39.9): Code(s): E66.9 - Obesity, unspecified Plan: Diet and exercise (3) Hypercholesterolemia: Code(s): E78.00 - Pure hypercholesterolemia, unspecified Plan: Avoid fried foods, chicken skin, eggs, butter margarine, pastries and meat. Be it pork or beef they have a lot of cholesterol LDL goal of less than 70 and triglyceride of less than 150 on rosuvastatin 40 mg once a day and Zetia 10 mg once a day (4) Coronary artery disease: Code(s): I25.10 - Atherosclerotic heart disease of [place] coronary artery without angina pectoris Qualifiers: Coronary Disease-Associated Artery/Lesion type: [place] artery [place] vs. transplanted heart: [place] heart Associated angina: without angina Qualified Code(s): I25.10 - Atherosclerotic heart disease of [place] coronary artery without angina pectoris Plan: Control the cholesterol, weight, blood pressure, diabetes continuing with aspirin 81 mg once a day (5) Hypertension: Code(s): I10 - Essential (primary) hypertension Qualifiers: Hypertension type: essential hypertension Qualified Code(s): I10 - Essential (primary) hypertension Plan: Continue with blood pressure medication. Decrease salt intake and exercise patient on amlodipine 5 mg once a day metoprolol 200 mg once a day (6) Generalized anxiety disorder: Code(s): F41.1 - Generalized anxiety disorder Plan: Continue with therapy with sertraline mirtazapine. (7) BPH with obstruction/lower urinary tract symptoms: Comment: Ultrasound December 2022 Code(s): N40.1 - Benign prostatic hyperplasia with lower urinary tract symptoms; N13.8 - Other obstructive and reflux uropathy (8) Chronic HFrEF (heart failure with reduced ejection fraction): Code(s): I50.22 - Chronic systolic (congestive) heart failure Plan: Continue with diuresis, weigh daily (9) CKD (chronic kidney disease): Code(s): N18.9 - Chronic kidney disease, unspecified Plan: Patient is reminded about the blood work. Keep well hydrated, avoid NSAIDs (10) Alzheimer disease: Comment: Neuro 06/2023 Code(s): G30.9 - Alzheimer's disease, unspecified; F02.80 - Dementia in other diseases classified elsewhere, unspecified severity, without behavioral disturbance, psychotic disturbance, mood disturbance, and anxiety (11) Parkinson disease: Comment: neuro Dr. Corrales Code(s): G20.A1 - Parkinson's disease without dyskinesia, without mention of fluctuations Orders: Orders AMB Hemoglobin A1c Today Z13.9 - Encounter for screening, unspecified Referrals Neurology Referral F02.80 - Dementia in other diseases classified elsewhere, unspecified severity, without behavioral disturbance, psychotic disturbance, mood disturbance, and anxiety, G20.A1 - Parkinson's disease without dyskinesia, without mention of fluctuations, G30.9 - Alzheimer's disease, unspecified Medications: Refilled dulaglutide (Trulicity) 1.5 mg (0.5 mL) subcut QWEEK 2 mL 5RF Coding Level of Care Code Est Pt Level 4 (76469) Complex EM visit Add On G2211 Diagnoses Type 2 diabetes mellitus with hyperglycemia, with long-term current use of insulin E11.65; Z79.4 Diabetes mellitus longterm insulin use: with bed bug exterminator use Obesity (BMI 30-39.9) E66.9 Hypercholesterolemia E78.00 Coronary artery disease involving [place] coronary artery of [place] heart without angina pectoris I25.10 Coronary Disease-Associated Artery/Lesion type: [place] artery [place] vs. transplanted heart: [place] heart Associated angina: without angina Essential hypertension I10 Hypertension type: essential hypertension Generalized anxiety disorder F41.1 BPH with obstruction/lower urinary tract symptoms N40.1; N13.8 Chronic HFrEF (heart failure with reduced ejection fraction) I50.22 CKD (chronic kidney disease) N18.9 Alzheimer disease G30.9; F02.80 Parkinson disease G20.A1 Additional Codes PHQ-9 - 09032 - PHQ-9 Billing: ([id number])
== END 2024-03-25 11:41 | disposition home or self-care (01) ==
PROVIDERS: PCP Internal Medicine; Visit Provider Internal Medicine
DX: E11.65 Type 2 diabetes mellitus with hyperglycemia (principal); Z79.4 Long term (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; E78.00 Pure hypercholesterolemia, unspecified; I25.10 Atherosclerotic heart disease of native coronary artery without angina pectoris; I12.9 Hypertensive chronic kidney disease with stage 1 through stage 4 chronic kidney disease, or unspecified chronic kidney disease; F41.1 Generalized anxiety disorder; N40.1 Benign prostatic hyperplasia with lower urinary tract symptoms; N13.8 Other obstructive and reflux uropathy; G20.A1 Parkinson's disease without dyskinesia, without mention of fluctuations
CPT/HCPCS: 83036; 99214; G2211

== ENCOUNTER 2024-03-26 07:07 | Outpatient (REF) | payer OTHER, SELFPAY ==
[2023-09-19 08:02] VITALS: BP 140/52; BP 140/74; BMI 31.0
[2024-03-26 07:25] LABS: MANUAL DIFF FLAG NO
[2024-03-26 08:19] LABS: Basophils Absolute Auto 0.1 X10*3/uL (0.0-0.2); Basophils Percent Auto 0.6 % (0-2); Eosinophils Absolute Auto 0.4 X10*3/uL (0.0-0.4); Eosinophils Percent Auto 4.3 % (0-4); Hematocrit 44.6 % (42.0-52.0); Hemoglobin 13.8 g/dl (14.0-18.0); Imm Gran Abs Auto 0.04 X10*3/uL (0.00-0.03); Imm Gran Pct Auto 0.5 % (0.0-0.4); Lymphocytes Absolute Auto 1.5 X10*3/uL (1.2-4.9); Lymphocytes Percent Auto 17.2 % (20-40); Mean Corpuscular HGB Conc 30.9 g/dl (31.0-36.0); Mean Corpuscular Hemoglobin 25.6 pg (27.0-33.0); Mean Corpuscular Volume 82.7 fL (80.0-98.0); Mean Platelet Volume 10.2 fL (9.4-12.4); Monocytes Absolute Auto 0.7 X10*3/uL (0.1-1.2); Monocytes Percent Auto 7.8 % (2-11); Neutrophils Absolute Auto 5.9 x10*3/uL (2.0-8.3); Neutrophils Percent Auto 69.6 % (45-73); Platelet Count 191 X10*3/uL (160-400); Red Blood Count 5.39 X10*6/uL (4.60-5.80); Red Cell Distribution Width 13.8 % (11.0-16.0); White Blood Count 8.5 X10*3/uL (4.8-10.8)
[2024-03-26 08:32] LABS: Estimated Average Glucose 126 mg/dL
[2024-03-26 09:10] LABS: Alanine Aminotransferase 12 U/L (0-40); Albumin Level 4.2 g/dL (3.5-5.0); Alkaline Phosphatase 91 U/L (39-117); Anion Gap 17 (12-20); Aspartate Amino Transferase 18 U/L (5-37); Bilirubin Total 0.3 mg/dL (0.0-1.0); Blood Urea Nitrogen 16 mg/dL (9-16); Calcium 9.5 mg/dL (8.4-10.2); Carbon Dioxide 27 mmol/L (22-29); Chloride 104 mmol/L (96-108); Cholesterol 116 mg/dL (<200); Estimated Glomerular Filt Rate > 60; Glucose Random 114 mg/dL (60-115); HDL Cholesterol 31 mg/dL (>40); LDL Cholesterol Calculated 58 mg/dL (<100); Potassium 3.7 mmol/L (3.3-5.1); Sodium 144 mmol/L (135-145); Total Protein 7.1 g/dL (6.5-8.0); Triglycerides 135 mg/dL (<150)
[2024-03-26 09:17] LABS: Creatinine Urine 99.61 mg/dL; Microalbum/Creatinine Ratio Ur 55.2 ug/mg cr (<30)
[2024-03-26 09:31] LABS: Free T4 (Free Thyroxine) 0.79 ng/dL (0.71-1.85); Thyroid Stimulating Hormone 0.75 uIU/mL (0.32-4.0)
[2024-03-26 09:58] LABS: Folate 9.2 ng/mL (> or = 4.0); Prostate Specific Antigen Scr 1.49 ng/mL (<0.05-4.0); Vitamin B12 441 pg/mL (200-900)
== END 2024-03-26 07:08 | disposition home or self-care (01) ==
LOC: HO.LAB 07:07
PROVIDERS: PCP Internal Medicine; Visit Provider Internal Medicine
DX: E11.65 Type 2 diabetes mellitus with hyperglycemia (principal); Z79.4 Long term (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; Z12.5 Encounter for screening for malignant neoplasm of prostate; E78.00 Pure hypercholesterolemia, unspecified
CPT/HCPCS: 36415; 80053; 80061; 82043; 82570; 82607; 82746; 83036; 84153; 84439; 84443; 85025

== ENCOUNTER 2024-05-04 11:47 | Emergency (ER) | payer MEDICARE, SELFPAY ==
[2023-09-19 08:02] VITALS: BP 140/52; BP 140/74; BMI 31.0
--- NOTE | ~2024-05-04 | XR_ITS ---
EXAMINATION: XR HIP, LEFT CLINICAL INFORMATION: Left hip pain. COMPARISON: CT abdomen/pelvis dated 04/07/2023. TECHNIQUE: Two views of the left hip. FINDINGS: No acute fracture or dislocation. Mild left hip joint space narrowing with small marginal osteophytes. More minimal right hip joint space narrowing with small marginal osteophytes. Bilateral hip chondrocalcinosis. No concerning lytic or blastic osseous lesion. Atherosclerotic calcifications. XR/XR hip LT w PEL1V IMPRESSION: 1. Mild bilateral hip osteoarthritis, left greater than right. Bilateral hip chondrocalcinosis. 2. No acute fracture or dislocation.
--- NOTE | ~2024-05-04 | XR_ITS ---
EXAMINATION: XR LUMBOSACRAL SPINE CLINICAL INFORMATION: Pain. COMPARISON: Most recent CT abdomen/pelvis dated 04/07/2023. TECHNIQUE: Three views of the lumbosacral spine. FINDINGS: Normal vertebral body alignment. The lumbar lordosis is maintained. No acute fracture or subluxation. No loss of vertebral body or intervertebral disc height. Small multilevel endplate osteophytes. Lower lumbar spine facet arthropathy. Findings are similar when compared to the prior CT. XR/XR lumbar spine 2-3V IMPRESSION: Mild multilevel degenerative disc disease and lower lumbar spine facet arthropathy, similar when compared to the prior CT.
[2024-05-04 11:56] VITALS: BP 115/76; PULSE 77; RESP 16; TEMP 36.2; O2SAT 95; BMI 31.7
--- NOTE | 2024-05-04 11:57 | ED.GENADULT ---
HPI - General Adult General Chief complaint: Extremity Problem Stated complaint: Hip pain Time Seen by Provider: 05/04/24 12:38 Source: patient and family Mode of arrival: ambulatory Limitations: no limitations History of Present Illness ED Provider: Di LE narrative: Patient is a 69-year-old male with history of Parkinson disease, Alzheimer disease, CKD, anemia, heart failure, T2 DM, CAD, HTN presenting to the emergency department with complaint of left hip pain since . He denies any fall or other trauma. States he woke with the pain. Since that time, the pain has been bothersome and keeping him from sleeping at night. Has been taking Tylenol with little relief. reports he was doing some lifting and moving prior to onset of symptoms. He denies radiation of pain. Denies saddle anesthesia or bowel or bladder incontinence. Denies fevers. Denies urinary symptoms. Denies lower extremity paresthesias. Denies fevers. Denies weakness to legs. MD complaint: left hip pain Onset (ago): day(s) Severity: severe Quality: aching Pain Consistency: constant Relieving factors: rest Exacerbating factors: movement Associated symptoms: denies other symptoms Treatments prior to arrival: other Related Data Home Medications ?Medication ?Instructions ?Recorded ?Confirmed carbidopa 25 mg-levodopa 100 mg 1 tab PO TID 08/01/23 12/19/23 tablet Januvia 12/02/23 12/19/23 Previous Rx's ?Medication ?Instructions ?Recorded lancets 30 gauge (OneTouch Delica #300 ea 01/23/22 Plus Lancet) blood sugar diagnostic (OneTouch #100 ea 01/29/23 Ultra Test strips) blood-glucose meter (OneTouch #1 ea 01/29/23 Ultra2 Meter) lancets (OneTouch UltraSoft #200 ea 01/29/23 Lancets) aspirin 81 mg chewable tablet 81 mg PO DAILY #30 tabs 04/08/23 omeprazole 40 mg capsule,delayed 40 mg PO BID@0630,1630 #1 cap 04/08/23 release blood pressure monitor (Blood #1 ea 04/29/23 Pressure Kit) pen needle, diabetic 31 gauge x ##4 06/06/2301/03 (1st Tier Unifine Pentips) pen needle, diabetic 32 gauge x #100 ea 06/06/2310/24 (BD Ultra-Fine Micro Pen Needle) dapagliflozin propanediol 10 mg 10 mg PO DAILY #30 tabs 08/01/23 tablet (Farxiga) metoprolol succinate 200 mg 200 mg PO DAILY #90 tabs 08/01/23 tablet,extended release 24 hr isosorbide mononitrate 30 mg 30 mg PO DAILY #90 tabs 09/20/23 tablet,extended release 24 hr insulin glargine 100 unit/mL (3 23 unit (0.23 mL) subcut DAILY #15 12/20/23 mL) subcutaneous pen (Basaglar mL KwikPen U-100 Insulin) mirtazapine 7.5 mg tablet 7.5 mg PO BEDTIME #90 tabs 12/20/23 sucralfate 1 gram tablet 1 g PO QIDACHS 90 days #120 tabs 02/20/24 ezetimibe 10 mg tablet (Zetia) 10 mg PO DAILY #90 tabs 03/19/24 glipizide 5 mg tablet, extended 5 mg PO DAILY 30 days #90 tabs 03/19/24 release 24 hr sertraline 25 mg tablet 25 mg PO DAILY #90 tabs 03/19/24 amlodipine 5 mg tablet 5 mg PO DAILY #90 tabs 03/23/24 furosemide 40 mg tablet 40 mg PO DAILY #90 tabs 03/23/24 rosuvastatin 40 mg tablet 40 mg PO BEDTIME #90 tabs 03/25/24 dulaglutide 1.5 mg/0.5 mL 1.5 mg (0.5 mL) subcut QWEEK #2 mL 04/15/24 subcutaneous pen [facility]or ([facility]) diclofenac sodium 1 % topical gel 4 g topical QID #100 grams 05/04/24 lidocaine 4 % topical patch 1 patch topical DAILY PRN pain #15 05/04/24 ea Allergies Allergy/AdvReac Type Severity Reaction Status Date / Time olmesartan Allergy Unknown Diarrhea Verified 05/04/24 11:59 Review of Systems Review of Systems: As per HPI. Yes all other systems are reviewed and are negative Constitutional: Constitutional: Reports as per HPI [facility] Past Medical History Medical History (Updated 05/04/24 @ 14:00 by Whitney Sevilla NP) Chronic renal insufficiency Parkinson disease Alzheimer disease Leukocytosis Screening for prostate cancer Generalized anxiety disorder Diarrhea Anxiety and depression Type 2 diabetes mellitus with hyperglycemia Hypercholesterolemia GERD (gastroesophageal reflux disease) Vitamin D deficiency Obesity (BMI 30-39.9) Coronary artery disease Hypertension Humeral fracture Surgical History Hx of cardiac catheterization History of endoscopic gastrointestinal surgery History of colonoscopy History of coronary artery bypass graft History of umbilical hernia repair History of tonsillectomy History of repair of rotator cuff History of cholecystectomy Family History Family History Father Lung cancer Mother Diabetes Hypertension Social History Social History Household Members: Spouse Housing: House Do you presently have visiting nurse or other home services: No Alcohol intake: never Patient Tobacco Use Status: Never used Tobacco Tobacco use type: Smokeless Tobacco e-Cigarette/Vaping Use: Never Used Second Hand Smoke Exposure: No Advance Directives: Yes Advance Directives on File: Yes Advance Directives Date on File: 03/07/22 Do you have a plan to hurt others: No Plan service: No Current occupational status: retired Cognitive needs: No Hearing needs: No Vision needs: Yes (glasses) Physical Exam ED Vital Signs: Vital Signs - 24 hr 05/04/24 11:56 05/04/24 14:18 Temperature 97.2 F 97.2 F Pulse Rate 77 69 Respiratory Rate 16 16 Blood Pressure 115/76 155/77 H Pulse Oximetry 95 97 Oxygen Delivery Method Room Air Room Air BMI result Body Mass Index 31.7 Vital signs have been reviewed and appear to be correct. Blood pressure normal. Heart rate normal. Respiratory rate normal. Temperature normal. Oxygen saturation normal. Const General: cooperative, healthy appearing and no acute distress Orientation/consciousness: oriented to person, oriented to place, oriented to time and patient oriented x3 Limitations: no limitations HENMT Head: Yes normocephalic and Yes atraumatic Ears: external ears normal General nose exam: Normal external nose present Face and sinus: Yes face symmetric Mouth: oropharynx normal and moist mucous membranes Throat: Yes uvula midline Eyes Pupils: Equal, round and reactive pupils present Neck Neck: Yes normal visual inspection and Yes supple Resp Effort & Inspection: normal respiratory effort and able to speak in complete sentences Auscultation: clear to auscultation bilaterally Cardio Rate: regular rate Rhythm: regular rhythm Heart sounds: S1 normal heart sound present and S2 normal heart sound present GI Palpation (GI): Soft to palpation and nontender Auscultation: normoactive bowel sounds General: Yes no CVA tenderness Back/Spine/Pelvis Back: no CVA tenderness Skin General skin exam: elasticity normal and turgor normal Neuro General: oriented to person, oriented to place, oriented to time, patient oriented x3, gait normal, tone normal, moves all extremities, Normal light touch and pain sensation, no focal motor deficits and CN's II-XI intact bilaterally Cranial nerves: Yes Equal, round and reactive pupils present Cognition (Neuro): normal cognition Motor exam (neuro): 5/5 motor strength present throughout Extrem General: Yes full ROM, Yes no pedal edema and Yes no calf tenderness Left lower extremity: hip/thigh Details: normal to inspection, tenderness Location: of the hip Location: laterally and normal ROM; no swelling, no ecchymosis, no crepitus and no unusual warmth and foot Details: vascular exam Details: dorsalis pedis pulse present and posterior tibial pulse present Psych Mental Status: mental status grossly normal Affect: normal affect Thought process: Normal thought process present Course Course Course Narrative: RME performed by Ivette Menendez PA-C. Patient is a 69 year old assigned [male/female] at presenting to the emergency department with left low back / hip pain. Patient states over the last few days he has had left sided hip and low back pain but denies any trauma. Patient states that he may have twisted the wrong way but isn't sure. Detailed physical exam and review of systems are deferred to the primary teaching assistant. Imaging ordered. Patient placed back in the waiting room pending room availability and results. Medical Decision Making Medical Decision Making MDM Narrative: Patient is a 69-year-old male with history of Parkinson disease, Alzheimer disease, CKD, anemia, heart failure, T2 DM, CAD, HTN presenting to the emergency department with complaint of left hip pain since . On exam patient is awake, A+Ox3, VS WNL, afebrile, normal neurological exam without focal deficits, physical exam findings as above. Given reported symptoms and physical exam findings, initial differential includes left hip strain, osteoarthritis, lumbar radiculopathy. No red flag findings concerning for septic arthritis, arterial insufficiency, osteonecrosis. X-ray lumbar spine notable for multilevel degenerative disc disease and facet arthropathy similar to prior imaging. X-ray hip and pelvis notable for mild bilateral hip osteoarthritis, left greater than right. My interpretation is in agreement with the radiologist's interpretation. Results discussed with patient and all questions answered. Given patient's medical history, will treat with topical lidocaine patches and diclofenac gel for when the lidocaine patches are off. Will refer to ortho for further management. Follow up with PCP. Return precautions discussed with patient and who verbalized understanding of and agreement with plan. Differential Diagnosis Differential Diagnoses: The differential diagnosis associated with the presentation includes As per MDM Independent Interpretation I performed an independent interpretation of an: Plain X-Ray Interpretation: X-ray lumbar spine notable for multilevel degenerative disc disease and facet arthropathy similar to prior imaging. X-ray hip and pelvis notable for mild bilateral hip osteoarthritis, left greater than right. Radiology Impression Discussion of test interpretation with radiology: I have reviewed the radiologist's reading. Radiologist Impression: XR/XR hip LT w PEL1V IMPRESSION: 1. Mild bilateral hip osteoarthritis, left greater than right. Bilateral hip chondrocalcinosis. 2. No acute fracture or dislocation. XR/XR lumbar spine 2-3V IMPRESSION: Mild multilevel degenerative disc disease and lower lumbar spine facet arthropathy, similar when compared to the prior CT. External Record Review External record reviewed: Inpatient record, Office record and Outpatient record Prescription Management I considered prescription management with: Pain Medication Discharge Plan Discharge Clinical Impression: Osteoarthritis of both hips Patient Disposition: Home, Self-Care Instructions: Osteoarthritis (DC), Degenerative Disc Disease (ED), Steroid Joint Injection (DC) Additional Instructions: You were evaluated in the emergency department for left hip pain. Your x-rays show evidence of osteoarthritis in your hips and degenerative disc disease in your spine. You are being prescribed topical lidocaine patches which you can apply to the affected area for up to 12 hours in a 24 hour. (12 hours on, then 12 hours off). You are also being prescribed diclofenac gel which you can use only when the lidocaine patches are off. Please follow-up with your primary care provider. You are being referred to orthopedics for further management of your symptoms, please call their office to schedule an appointment, they will not call you. Return to the emergency department if you develop increasing pain, new weakness, numbness, tingling to her legs, fever or any other concerning symptoms. Prescriptions: New lidocaine 4 % adhesive patch,medicated 1 patch topical DAILY PRN (Reason: pain) Qty: 15 0RF diclofenac sodium 1 % gel 4 g topical QID Qty: 100 0RF Rx Instructions: apply to affected area only when lidocaine patches are off No Action (DME) blood-glucose meter [[facility] Ultra2 Meter] [facility] See Rx Instructions .Route Qty: 1 0RF Rx Instructions: As directed (DME) OneTouch Ultra Test Strip See Rx Instructions .Route Qty: 100 3RF Rx Instructions: As directed (DME) lancets [OneTouch UltraSoft Lancets] Misc See Rx Instructions .Route Qty: 200 1RF Rx Instructions: Testing 4 times a day (DME) pen needle, diabetic [BD Ultra-Fine Micro Pen Needle] 32 gauge x 1/4 needle See Rx Instructions .Route Qty: 100 11RF Rx Instructions: test 4 times per day (DME) pen needle, diabetic [1st Tier Unifine Pentips] 31 gauge x 3/16 needle See Rx Instructions .ROUTE .MEDSUPPLY Qty: 4 3RF Rx Instructions: As directed inject insulin 4 times a day isosorbide mononitrate 30 mg tablet extended release 24 hr 30 mg PO DAILY Qty: 90 2RF insulin glargine [Basaglar KwikPen U-100 Insulin] 100 unit/mL (3 mL) insulin pen 23 unit subcut DAILY Qty: 15 3RF Rx Instructions: 1/2 dose this am mirtazapine 7.5 mg tablet 7.5 mg PO BEDTIME Qty: 90 1RF sucralfate 1 gram tablet 1 g PO QIDACHS 90 Days Qty: 120 3RF ezetimibe [Zetia] 10 mg tablet 10 mg PO DAILY Qty: 90 2RF glipizide 5 mg tablet extended release 24hr 5 mg PO DAILY 30 Days Qty: 90 3RF sertraline 25 mg tablet 25 mg PO DAILY Qty: 90 1RF furosemide 40 mg tablet 40 mg PO DAILY Qty: 90 1RF Rx Instructions: or as directed amlodipine 5 mg tablet 5 mg PO DAILY Qty: 90 2RF rosuvastatin 40 mg tablet 40 mg PO BEDTIME Qty: 90 1RF Trulicity 1.5 mg/0.5 mL pen injector 1.5 mg subcut QWEEK Qty: 2 0RF Januvia omeprazole 40 mg Capsule,Delayed Release(Dr/Ec) 40 mg PO BID@0630,1630 Qty: 1 0RF aspirin 81 mg Tablet,Chewable 81 mg PO DAILY Qty: 30 0RF (DME) lancets [OneTouch Delica Plus Lancet] 30 gauge misc See Rx Instructions .Route Qty: 300 3RF Rx Instructions: As directed check the BS TID (DME) blood pressure monitor [Blood Pressure Kit] Kit See Rx Instructions .ROUTE .MEDSUPPLY Qty: 1 0RF Rx Instructions: As directed carbidopa-levodopa 25-100 mg tablet 1 tab PO TID Farxiga 10 mg tablet 10 mg PO DAILY Qty: 30 0RF metoprolol succinate 200 mg tablet extended release 24 hr 200 mg PO DAILY Qty: 90 3RF Referrals: [facility] Orthopedic Surgeons [Provider Group] Interventions: ED Discharge Assessment Last Done: 05/04/24 14:18 Discharge Date/Time: 05/04/24 14:20 Print Language: Kyrgyz
[2024-05-04 14:18] VITALS: BP 155/77; PULSE 69; RESP 16; TEMP 36.2; O2SAT 97
== END 2024-05-04 14:20 | disposition home or self-care (01) ==
PROVIDERS: Emergency Provider Emergency Medicine; PCP Internal Medicine
DX: M16.0 Bilateral primary osteoarthritis of hip (principal); M54.50 Low back pain, unspecified
CPT/HCPCS: 72100; 73502; 99282; 99283

== ENCOUNTER 2024-05-25 14:30 | Outpatient (AMB) | payer MEDICARE, SELFPAY ==
[2023-09-19 08:02] VITALS: BP 140/52; BP 140/74; BMI 31.0
[2024-05-25 14:37] VITALS: BMI 31.7
--- NOTE | 2024-05-25 14:37 | A.OFFVIS_ITS ---
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 Patient reports bilateral hip pain with his left hip causing the most pain for about 2.5 weeks. He was seen at [facility] where xrays were taken and referred to orthopedics. His pain is located at the lateral aspect of hip and with lifting his leg his pain will radiate down his leg. Denies injury. No previous tx. Finds little relief with topical cream and patches. Patient uses a cane to ambulate. Allergies olmesartan Allergy (Unknown, Verified 05/25/24 14:43) Diarrhea Medication List - Last Reconciled 05/25/24 by Roberta Rouse PA-C amlodipine 5 mg PO DAILY aspirin 81 mg PO DAILY blood pressure monitor (Blood Pressure Kit) As directed blood sugar diagnostic (WeavlyTouch Ultra Test strips) As directed blood-glucose meter (Vacatiauch Ultra2 Meter) As directed carbidopa-levodopa 25-100 mg 1 tab PO TID dapagliflozin propanediol (Farxiga) 10 mg PO DAILY diclofenac sodium 1% 4 grams topical QID dulaglutide (Trulicity) 1.5 mg (0.5 mL) subcut QWEEK ezetimibe (Zetia) 10 mg PO DAILY furosemide 40 mg PO DAILY glipizide ER 5 mg PO DAILY 30 days insulin glargine (Basaglar KwikPen U-100 Insulin) 23 units (0.23 mL) subcut DAILY isosorbide mononitrate ER 30 mg PO DAILY [Januvia ] lancets (WeavlyTouch UltraSoft Lancets) Testing 4 times a day lancets (WeavlyTouch Delica Plus Lancet) As directed check the BS TID lidocaine 4% 1 patch topical DAILY PRN metoprolol succinate ER 200 mg PO DAILY mirtazapine 7.5 mg PO BEDTIME omeprazole 40 mg PO BID@0630,1630 pen needle, diabetic (1st Tier Unifine Pentips) As directed inject insulin 4 times a day pen needle, diabetic (BD Ultra-Fine Micro Pen Needle) test 4 times per day rosuvastatin 40 mg PO BEDTIME sertraline 25 mg PO DAILY sucralfate 1 g PO QIDACHS 90 days HPI HPI 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 He was seen at ER where x- rays were performed and he was referred to our office. He currently states he has pain at the lateral aspect of bilateral hips that is worse on his left hip. His pain is aggravated at night and pain radiates down to his leg with lifting. He denies any injury and has not had any treatment in the past. He finds mild relief with Voltaren gel and lidocaine patches. He uses a cane to ambulate. [facility] Medical History (Updated 05/25/24 @ 15:02 by Roberta Rouse PA-C) Chronic renal insufficiency Parkinson disease Alzheimer disease Leukocytosis Screening for prostate cancer Generalized anxiety disorder Diarrhea Anxiety and depression Type 2 diabetes mellitus with hyperglycemia Hypercholesterolemia GERD (gastroesophageal reflux disease) Vitamin D deficiency Obesity (BMI 30-39.9) Coronary artery disease Hypertension Humeral fracture Surgical History Hx of cardiac catheterization History of endoscopic gastrointestinal surgery History of colonoscopy History of coronary artery bypass graft History of umbilical hernia repair History of tonsillectomy History of repair of rotator cuff History of cholecystectomy Family History Father Lung cancer Mother Diabetes Hypertension Social History Household Members: Spouse Housing: House Do you presently have visiting nurse or other home services: No Alcohol intake: never Patient Tobacco Use Status: Never used Tobacco Tobacco use type: Smokeless Tobacco e-Cigarette/Vaping Use: Never Used Second Hand Smoke Exposure: No Advance Directives Date on File: 03/07/22 service: No Current occupational status: retired Cognitive needs: No Hearing needs: No Vision needs: Yes (glasses) Review of Systems Const All systems reviewed & are unremarkable except as noted in HPI and below Physical Exam Vital Signs: BMI result Body Mass Index 31.7 Extrem Other: Bilateral hip: Normal to inspection. No pain with ROM of the hip. Pain along the greater trochanter. No pain with hip flexion or abduction. Negative tenderness along the SI joint, Negative SLR. NVI. Results Reviewed Results Reviewed: XR hip LT w PEL1V 05/04/24 IMPRESSION: 1. Mild bilateral hip osteoarthritis, left greater than right. Bilateral hip chondrocalcinosis. 2. No acute fracture or dislocation. Assessment & Plan Assessment & Plan (1) Trochanteric bursitis, left hip: Code(s): M70.62 - Trochanteric bursitis, left hip Category: Medical Plan We discussed options which include PT, NSAIDs and injections. The patient will defer on the injection today and proceed with PT and NSAIDs. If symptoms persist, she will contact me for an injection, otherwise, PRN. Orders: Orders PT Evaluation and Treatment Today M70.62 - Trochanteric bursitis, left hip Patient Instructions: Scribed for Roberta Rouse PA-C, by Vitaly Barraza emergency medical service coordinator, on 05/25/2024 at 2:45 PM EST.? I, Roberta Rouse PA-C, have personally reviewed and agree with the information entered by the scribe. Coding Level of Care Code New Pt Level 3 (91024) Diagnoses Trochanteric bursitis, left hip M70.62
== END 2024-05-25 15:05 | disposition home or self-care (01) ==
PROVIDERS: PCP Internal Medicine; Visit Provider Physician Assistant
DX: M70.62 Trochanteric bursitis, left hip (principal)
CPT/HCPCS: 99203

== ENCOUNTER → 2024-05-25 14:30 | Outpatient (BNVA) | payer MEDICARE, SELFPAY ==
[2023-09-19 08:02] VITALS: BP 140/52; BP 140/74; BMI 31.0
== END ==
PROVIDERS: PCP Internal Medicine; Visit Provider Physician Assistant
DX: M70.62 Trochanteric bursitis, left hip (principal); M17.0 Bilateral primary osteoarthritis of knee
CPT/HCPCS: 99202

== ENCOUNTER 2024-06-29 10:05 | Outpatient (AMB) | payer MEDICARE, SELFPAY ==
[2023-09-19 08:02] VITALS: BP 140/52; BP 140/74; BMI 31.0
[2024-06-29 10:22] VITALS: BP 138/78; PULSE 77; BMI 31.9
--- NOTE | 2024-06-29 10:22 | A.OFFVIS_ITS ---
Vital Signs 06/29/24 10:22 Height 5 ft 9 in Weight 216 lb 0.848 oz BMI 31.9 BP 138/78 Blood Pressure Location Lt brachial Position Sitting Pulse 77 Pulse Source Monitor Intake Visit Reasons: 6 m follow up Allergies olmesartan Allergy (Unknown, Verified 05/25/24 14:43) Diarrhea Medication List - Last Reconciled 06/29/24 by Kenny Clark MD amlodipine 5 mg PO DAILY aspirin 81 mg PO DAILY blood pressure monitor (Blood Pressure Kit) As directed blood sugar diagnostic (CardMunchTouch Ultra Test strips) As directed blood-glucose meter (ClearStory Datauch Ultra2 Meter) As directed carbidopa-levodopa 25-100 mg 1 tab PO TID dapagliflozin propanediol (Farxiga) 10 mg PO DAILY diclofenac sodium 1% 4 grams topical QID ezetimibe (Zetia) 10 mg PO DAILY furosemide 40 mg PO DAILY glipizide ER 5 mg PO DAILY 30 days insulin glargine (Basaglar KwikPen U-100 Insulin) 23 units (0.23 mL) subcut DAILY isosorbide mononitrate ER 30 mg PO DAILY [Januvia ] lancets (ClearStory Datauch UltraSoft Lancets) Testing 4 times a day lancets (CardMunchTouch Delica Plus Lancet) As directed check the BS TID lidocaine 4% 1 patch topical DAILY PRN liraglutide (Victoza 2-Sharad) inject 0.6mg subcutaneously once daily x 7 days; then 1.2mg daily, not to exceed 1.8mg/day subcut metoprolol succinate ER 200 mg PO DAILY mirtazapine 7.5 mg PO BEDTIME omeprazole 40 mg PO BID@0630,1630 pen needle, diabetic (1st Tier Unifine Pentips) As directed inject insulin 4 times a day pen needle, diabetic (BD Ultra-Fine Micro Pen Needle) test 4 times per day rosuvastatin 40 mg PO BEDTIME sertraline 25 mg PO DAILY sucralfate 1 g PO QIDACHS 90 days HPI Comments Details: Divya returns for follow-up regarding coronary artery disease. In 2022, he was hospitalized for NSTEMI. Echocardiogram had cardiomyopathy with wall motion abnormalities. Then sent to [facility] for cardiac catheterization but no interventions performed. Over the last year or so, he states he is doing good. No complaints like angina or shortness of breath or in fact anything cardiac related. Getting along fine. There is also history GI bleeding and endoscopy had then shown gastric ulcers. [facility] Medical History (Updated 05/25/24 @ 15:02 by Roberta Rouse PA-C) Chronic renal insufficiency Parkinson disease Alzheimer disease Leukocytosis Screening for prostate cancer Generalized anxiety disorder Diarrhea Anxiety and depression Type 2 diabetes mellitus with hyperglycemia Hypercholesterolemia GERD (gastroesophageal reflux disease) Vitamin D deficiency Obesity (BMI 30-39.9) Coronary artery disease Hypertension Humeral fracture Surgical History Hx of cardiac catheterization History of endoscopic gastrointestinal surgery History of colonoscopy History of coronary artery bypass graft History of umbilical hernia repair History of tonsillectomy History of repair of rotator cuff History of cholecystectomy Family History Father Lung cancer Mother Diabetes Hypertension Social History Household Members: Spouse Housing: House Do you presently have visiting nurse or other home services: No Alcohol intake: never Patient Tobacco Use Status: Never used Tobacco Tobacco use type: Smokeless Tobacco e-Cigarette/Vaping Use: Never Used Second Hand Smoke Exposure: No Advance Directives Date on File: 03/07/22 service: No Current occupational status: retired Cognitive needs: No Hearing needs: No Vision needs: Yes (glasses) Review of Systems Const Denies weakness ENT Denies dizziness Card Denies chest pain, Denies chest pain with activity, Denies syncope, Denies rapid heart rate, Denies pedal edema, Denies edema, Denies leg edema, Denies lightheadedness, Denies palpitations, Denies dyspnea, Denies dyspnea on exertion and Denies orthopnea Resp Denies cough, Denies dyspnea and Denies dyspnea on exertion GI Denies hematochezia and Denies change in stool character Musc Denies abnormal gait, Denies muscle cramps, Denies muscle weakness, Denies numbness, Denies radiating pain into limb and Denies tingling Neuro Denies abnormal gait, Denies dizziness, Denies syncope, Denies numbness, Denies tingling and Denies weakness Endo Denies palpitations Physical Exam Vital Signs: Last Vital Signs Pulse 77 06/29/24 10:22 BP 138/78 06/29/24 10:22 BMI result Body Mass Index 31.9 Const General: comfortable and no acute distress Orientation/consciousness: patient oriented x3 HEENT Other: Unremarkable Head: Yes normal to inspection Neck Neck: Yes normal visual inspection Chest Chest palpation & inspection: normal inspection of the chest Resp Auscultation: clear to auscultation bilaterally Cardio Palpation: normal PMI Heart sounds: S1 normal heart sound present, S2 normal heart sound present, no gallops, no murmurs and no rubs GI Palpation (GI): Soft to palpation Back/Spine/Pelvis Other: unremarkable Skin General skin exam: no rashes or lesions noted Neuro General: patient oriented x3 Extrem General: Yes normal to inspection Psych Mental Status: mental status grossly normal Office Procedures EKG Details: EKG with underlying sinus rhythm at 77/Min; no significant ST-T changes and otherwise unremarkable. [id number], Complete Assessment & Plan Assessment & Plan (1) Coronary artery disease: Code(s): I25.10 - Atherosclerotic heart disease of [place] coronary artery without angina pectoris Category: Medical Qualifiers: Associated angina: without angina Coronary Disease-Associated Artery/Lesion type: [place] artery [place] vs. transplanted heart: [place] heart Qualified Code(s): I25.10 - Atherosclerotic heart disease of [place] coronary artery without angina pectoris Plan: In the cardiac catheterization, diffuse CAD but nothing truly intervenable. Hen ce on medical therapy only. Can continue aspirin. Off Plavix and there is also GI bleeding history. Continue statins. Last LDL 58 mg/dL. (2) Chronic HFrEF (heart failure with reduced ejection fraction): Code(s): I50.22 - Chronic systolic (congestive) heart failure Category: Medical Plan: Initial echocardiogram with LVEF of 30-35% and more recently normalized. Continue diuretics. Continue beta-blockers. He was on Olmesartan, but he also has renal insufficiency with rising creatinine hence that has been stopped. Most recent creatinine is 1.06. Otherwise, on Farxiga. (3) Hypertension: Code(s): I10 - Essential (primary) hypertension Category: Medical Qualifiers: Hypertension type: essential hypertension Qualified Code(s): I10 - Essential (primary) hypertension Plan: Stable. No changes. Plan Discussed with who came for appointment. Coding Level of Care Code Est Pt Level 4 (71605) Diagnoses Coronary artery disease involving [place] coronary artery of [place] heart without angina pectoris I25.10 Associated angina: without angina Coronary Disease-Associated Artery/Lesion type: [place] artery [place] vs. transplanted heart: [place] heart Chronic HFrEF (heart failure with reduced ejection fraction) I50.22 Essential hypertension I10 Hypertension type: essential hypertension CPT Codes EKG - CPT: 04999-[id number], Complete ([id number])
== END 2024-06-29 10:49 | disposition home or self-care (01) ==
PROVIDERS: PCP Internal Medicine; Visit Provider Internal Medicine
DX: I25.10 Atherosclerotic heart disease of native coronary artery without angina pectoris (principal); I50.22 Chronic systolic (congestive) heart failure; I10 Essential (primary) hypertension
CPT/HCPCS: 93010; 99214

== ENCOUNTER → 2024-06-29 10:05 | Outpatient (BNVA) | payer MEDICARE, SELFPAY ==
[2023-09-19 08:02] VITALS: BP 140/52; BP 140/74; BMI 31.0
== END ==
PROVIDERS: PCP Internal Medicine; Visit Provider Internal Medicine
DX: I25.10 Atherosclerotic heart disease of native coronary artery without angina pectoris (principal); I11.0 Hypertensive heart disease with heart failure; I50.22 Chronic systolic (congestive) heart failure
CPT/HCPCS: 93005; 99212

== ENCOUNTER 2024-06-30 12:48 | Outpatient (REF) | payer SELFPAY ==
[2023-09-19 08:02] VITALS: BP 140/52; BP 140/74; BMI 31.0
== END 2024-06-30 12:49 | disposition home or self-care (01) ==
LOC: HO.HAP 12:48
PROVIDERS: Visit Provider Internal Medicine
DX: Z46.1 Encounter for fitting and adjustment of hearing aid (principal); H90.3 Sensorineural hearing loss, bilateral
CPT/HCPCS: V5267

== ENCOUNTER 2024-07-04 04:15 | Emergency (ER) | payer MEDICARE, SELFPAY ==
[2023-09-19 08:02] VITALS: BP 140/52; BP 140/74; BMI 31.0
--- NOTE | ~2024-07-04 | XR_ITS ---
EXAMINATION: XR TIBIA AND FIBULA, RIGHT CLINICAL INFORMATION: Fall, swelling COMPARISON: Right ankle 03/08/2013 TECHNIQUE: AP and lateral views of the right tibia and fibula were obtained. FINDINGS: Alignment of the knee and ankle appears anatomic. There is suspected chondrocalcinosis at the knee. No acute fracture is seen. There is soft tissue swelling along the medial aspect of the distal leg. Scattered clips are present within the medial soft tissues. XR/XR tibia fibula RT 2V IMPRESSION: Soft tissue swelling along the medial aspect of the distal leg. No fracture identified. Electronically signed by: Robert Rico MD 07/04/2024 05:37 AM EDT
[2024-07-04 04:20] VITALS: BP 200/95; PULSE 88; O2SAT 96
[2024-07-04 04:22] VITALS: BP 184/73; PULSE 92; RESP 16; TEMP 36.7; O2SAT 94; BMI 31.0
[2024-07-04 04:29] VITALS: BP 184/73; PULSE 89; RESP 16; TEMP 36.7; O2SAT 94
--- NOTE | 2024-07-04 04:35 | PC.NURSE ---
MD made aware of BP and confirmed order for xr. came to bedside. confirmed -headstrike/loc believes home med mirtazapine causes pt to dream and fall out of bed. reports pt takes 81mg aspirin daily. call joseph within reach awaiting xr.
--- NOTE | 2024-07-04 04:41 | ED_ITS ---
HPI - Fall General Chief Complaint: Fall Stated Complaint: FELL OUT OF BED Time Seen by Provider: 07/04/24 04:41 Source: patient, family and EMS Mode of arrival: EMS Limitations: no limitations History of Present Illness ED Provider: Dr. Yaritza Dia HPI Narrative: Patient comes to the emergency room via ambulance after falling out of bed. According to the patient, he was walking to the bathroom, fell. Patient states that he was able to get up called his . Patient's examined him and noticed that he had a bruise in the right lower extremity and called the ambulance. Patient is ambulatory, states that he does not have significant pain other than above the ecchymosis. No calf pain, no foot pain or ankle pain. Patient states that he did not hit his head or lost consciousness, patient takes baby aspirin, no blood thinners Related Data Home Medications ?Medication ?Instructions ?Recorded ?Confirmed carbidopa 25 mg-levodopa 100 mg 1 tab PO TID 08/01/23 06/29/24 tablet Januvia 12/02/23 06/29/24 Previous Rx's ?Medication ?Instructions ?Recorded lancets 30 gauge (OneTouch Delica #300 ea 01/23/22 Plus Lancet) blood sugar diagnostic (OneTouch #100 ea 01/29/23 Ultra Test strips) blood-glucose meter (OneTouch #1 ea 01/29/23 Ultra2 Meter) lancets (OneTouch UltraSoft #200 ea 01/29/23 Lancets) aspirin 81 mg chewable tablet 81 mg PO DAILY #30 tabs 04/08/23 omeprazole 40 mg capsule,delayed 40 mg PO BID@0630,1630 #1 cap 04/08/23 release blood pressure monitor (Blood #1 ea 04/29/23 Pressure Kit) pen needle, diabetic 31 gauge x ##4 06/06/23/ (1st Tier Unifine Pentips) pen needle, diabetic 32 gauge x #100 ea 06/06/2310/24 (BD Ultra-Fine Micro Pen Needle) dapagliflozin propanediol 10 mg 10 mg PO DAILY #30 tabs 08/01/23 tablet (Farxiga) metoprolol succinate 200 mg 200 mg PO DAILY #90 tabs 08/01/23 tablet,extended release 24 hr insulin glargine 100 unit/mL (3 23 unit (0.23 mL) subcut DAILY #15 12/20/23 mL) subcutaneous pen (Basaglar mL KwikPen U-100 Insulin) sucralfate 1 gram tablet 1 g PO QIDACHS 90 days #120 tabs 02/20/24 ezetimibe 10 mg tablet (Zetia) 10 mg PO DAILY #90 tabs 03/19/24 glipizide 5 mg tablet, extended 5 mg PO DAILY 30 days #90 tabs 03/19/24 release 24 hr sertraline 25 mg tablet 25 mg PO DAILY #90 tabs 03/19/24 amlodipine 5 mg tablet 5 mg PO DAILY #90 tabs 03/23/24 furosemide 40 mg tablet 40 mg PO DAILY #90 tabs 03/23/24 rosuvastatin 40 mg tablet 40 mg PO BEDTIME #90 tabs 03/25/24 diclofenac sodium 1 % topical gel 4 g topical QID #100 grams 05/04/24 lidocaine 4 % topical patch 1 patch topical DAILY PRN pain #15 05/04/24 ea isosorbide mononitrate 30 mg 30 mg PO DAILY #90 tabs 06/15/24 tablet,extended release 24 hr mirtazapine 7.5 mg tablet 7.5 mg PO BEDTIME #90 tabs 06/15/24 liraglutide 0.6 mg/0.1 mL (18 mg/3 1.8 mg (0.3 mL) subcut DAILY 30 06/30/24 mL) subcutaneous pen injector days #9 mL (Victoza 2-Sharad) acetaminophen 500 mg capsule 500 mg PO Q6H PRN fever or pain 07/04/24 #20 caps Allergies Allergy/AdvReac Type Severity Reaction Status Date / Time olmesartan Allergy Unknown Diarrhea Verified 07/04/24 04:23 Review of Systems Review of Systems: Constitutional : No Weight loss, No Fever, No Chills, No Night Sweats, No Fatigue, No Malaise ENT/Mouth : No Hearing loss, No Ear Pain, No Nasal Congestion, No Sinus Pain, No Hoarseness, No sore throat, No Rhinorrhea, No Swallowing Difficulty Eyes: No Eye Pain, No Swelling, No Redness, No Foreign Body, No Discharge, No Vision Changes Cardiovascular : No Chest Pain, No SOB, No Dyspnea on Exertion, No Orthopnea, No Edema, No Palpitations Respiratory : No Cough, No Sputum, No Wheezing, No Smoke Exposure, No Dyspnea Gastrointestinal : No Nausea, No Vomiting, No Diarrhea, No Constipation, No abdominal Pain, No Hematochezia, No Melena Genitourinary : no irregular bleeding, No Dysuria, No Urinary Frequency, No Hematuria, No Urinary Incontinence, No Urgency, No Flank Pain, No Urinary Flow Changes, No Hesitancy Musculoskeletal complaining of ecchymosis in the right lower extremity No Myalgias, No Joint Swelling Skin : No Skin Lesions, No rash Neuro : No Weakness, No Numbness, No Paresthesias, No Loss of Consciousness, No Dizziness, No Headache Psych : No Anxiety/Panic, No Depression, No SI/HI/AH/VH, No Social Issues, Heme/Lymph: No Bruising, No Bleeding,No Lymphadenopathy Endocrine : No Polyuria, No Polydipsia, No Temperature Intolerance [facility], [facility] Past Medical History Medical History Chronic renal insufficiency Parkinson disease Alzheimer disease Leukocytosis Screening for prostate cancer Generalized anxiety disorder Diarrhea Anxiety and depression Type 2 diabetes mellitus with hyperglycemia Hypercholesterolemia GERD (gastroesophageal reflux disease) Vitamin D deficiency Obesity (BMI 30-39.9) Coronary artery disease Hypertension Humeral fracture Surgical History Hx of cardiac catheterization History of endoscopic gastrointestinal surgery History of colonoscopy History of coronary artery bypass graft History of umbilical hernia repair History of tonsillectomy History of repair of rotator cuff History of cholecystectomy Family History Family History Father Lung cancer Mother Diabetes Hypertension Social History Social History Household Members: Spouse Housing: House Do you presently have visiting nurse or other home services: No Alcohol intake: never Patient Tobacco Use Status: Never used Tobacco Tobacco use type: Smokeless Tobacco e-Cigarette/Vaping Use: Never Used Second Hand Smoke Exposure: No Advance Directives: Yes Advance Directives on File: Yes Advance Directives Date on File: 03/07/22 service: No Current occupational status: retired Cognitive needs: No Hearing needs: No Vision needs: Yes (glasses) Physical Exam Vital Signs: Vital Signs: Last Vital Signs Temp 98.0 F 07/04/24 06:19 Pulse 81 07/04/24 06:19 Resp 16 07/04/24 06:19 BP 132/56 L 07/04/24 06:19 Pulse Ox 98 07/04/24 06:19 O2 Del Method Room Air 07/04/24 06:19 BMI result Body Mass Index 31.0 Const: Other: Appearance: Alert. Oriented X3. No acute distress. Eyes: Pupils equal, round and reactive to light. ENT: Pharynx normal. Neck: Normal inspection. Neck supple. No lymph nodes noted. No crepitus CVS: Normal heart rate and rhythm. Pulses normal. Normal S1 and S2 Respiratory: No respiratory distress. Breath sounds normal. No Wheezing. No rales Abdomen: Soft and nontender. No rigidity. No distention. Skin: Skin warm and dry. Normal skin color. Normal skin turgor. Extremities: No lower extremity edema. Patient has as 5 cm x 5 cm ecchymosis in the right lower extremity. No calf pain, no ankle pain. Neuro: Oriented X 3. No motor deficit. No sensory deficit. Moving all extremities. No slurred speech. CN 2 through 12 grossly intact Psych: calm, cooperative, normal affect Course Course Course Narrative: At this time, patient states that he feels well, declined any pain. Only hurts when I touch his ecchymosis area. X-ray of the tibia fibula pending. Medical Decision Making Medical Decision Making [facility] Narrative: My interpretation of x-ray, no obvious fracture or dislocation -patient was able to walk by himself without any difficulty. The hematoma in patient's leg has not expanded. -no calf pain, DVT not suspected Independent Interpretation I performed an independent interpretation of an: Plain X-Ray Radiology Impression Discussion of test interpretation with radiology: I have reviewed the radiologist's reading. Radiologist Impression: Alignment of the knee and ankle appears anatomic. There is suspected chondrocalcinosis at the knee. No acute fracture is seen. There is soft tissue swelling along the medial aspect of the distal leg. Scattered clips are present within the medial soft tissues. XR/XR tibia fibula RT 2V IMPRESSION: Soft tissue swelling along the medial aspect of the distal leg. No fracture identified. Independent Historian Clinical information obtained from an independent historian. History obtained from or confirmed by: Spouse Discharge Plan Discharge Clinical Impression: Contusion of leg Patient Disposition: Home, Self-Care Instructions: Contusion in Adults (ED) Additional Instructions: Please follow-up with your primary care physician tomorrow. If you have any worsening or new symptoms, please return to the emergency room or call 911 Prescriptions: New acetaminophen 500 mg capsule 500 mg PO Q6H PRN (Reason: fever or pain) Qty: 20 0RF No Action (DME) blood-glucose meter [OneTouch Ultra2 Meter] Misc See Rx Instructions .Route Qty: 1 0RF Rx Instructions: As directed (DME) OneTouch Ultra Test Strip See Rx Instructions .Route Qty: 100 3RF Rx Instructions: As directed (DME) lancets [OneTouch UltraSoft Lancets] Misc See Rx Instructions .Route Qty: 200 1RF Rx Instructions: Testing 4 times a day (DME) pen needle, diabetic [BD Ultra-Fine Micro Pen Needle] 32 gauge x 1/4 needle See Rx Instructions .Route Qty: 100 11RF Rx Instructions: test 4 times per day (DME) pen needle, diabetic [1st Tier Unifine Pentips] 31 gauge x 3/16 needle See Rx Instructions .ROUTE .MEDSUPPLY Qty: 4 3RF Rx Instructions: As directed inject insulin 4 times a day insulin glargine [Basaglar KwikPen U-100 Insulin] 100 unit/mL (3 mL) insulin pen 23 unit subcut DAILY Qty: 15 3RF Rx Instructions: 1/2 dose this am sucralfate 1 gram tablet 1 g PO QIDACHS 90 Days Qty: 120 3RF ezetimibe [Zetia] 10 mg tablet 10 mg PO DAILY Qty: 90 2RF glipizide 5 mg tablet extended release 24hr 5 mg PO DAILY 30 Days Qty: 90 3RF sertraline 25 mg tablet 25 mg PO DAILY Qty: 90 1RF furosemide 40 mg tablet 40 mg PO DAILY Qty: 90 1RF Rx Instructions: or as directed amlodipine 5 mg tablet 5 mg PO DAILY Qty: 90 2RF rosuvastatin 40 mg tablet 40 mg PO BEDTIME Qty: 90 1RF isosorbide mononitrate 30 mg tablet extended release 24 hr 30 mg PO DAILY Qty: 90 2RF mirtazapine 7.5 mg tablet 7.5 mg PO BEDTIME Qty: 90 1RF liraglutide [Victoza 2-Sharad] 0.6 mg/0.1 mL (18 mg/3 mL) pen injector 1.8 mg subcut DAILY 30 Days Qty: 9 2RF Januvia omeprazole 40 mg Capsule,Delayed Release(Dr/Ec) 40 mg PO BID@0630,1630 Qty: 1 0RF aspirin 81 mg Tablet,Chewable 81 mg PO DAILY Qty: 30 0RF lidocaine 4 % adhesive patch,medicated 1 patch topical DAILY PRN (Reason: pain) Qty: 15 0RF diclofenac sodium 1 % gel 4 g topical QID Qty: 100 0RF Rx Instructions: apply to affected area only when lidocaine patches are off (DME) lancets [OneTouch Delica Plus Lancet] 30 gauge misc See Rx Instructions .Route Qty: 300 3RF Rx Instructions: As directed check the BS TID (DME) blood pressure monitor [Blood Pressure Kit] Kit See Rx Instructions .ROUTE .MEDSUPPLY Qty: 1 0RF Rx Instructions: As directed carbidopa-levodopa 25-100 mg tablet 1 tab PO TID Farxiga 10 mg tablet 10 mg PO DAILY Qty: 30 0RF metoprolol succinate 200 mg tablet extended release 24 hr 200 mg PO DAILY Qty: 90 3RF Print Language: Serbian
[2024-07-04 06:19] VITALS: BP 132/56; PULSE 81; RESP 16; TEMP 36.7; O2SAT 98
[2024-07-04 06:55] VITALS: BP 132/56; PULSE 81; RESP 16; TEMP 36.7; O2SAT 98
== END 2024-07-04 06:55 | disposition home or self-care (01) ==
PROVIDERS: Emergency Provider Emergency Medicine
DX: S80.11XA Contusion of right lower leg, initial encounter (principal); W06.XXXA Fall from bed, initial encounter; Y93.89 Activity, other specified; Y92.013 Bedroom of single-family (private) house as the place of occurrence of the external cause; Y99.9 Unspecified external cause status
CPT/HCPCS: 73590; 99282; 99283

== ENCOUNTER 2024-07-17 10:00 | Outpatient (AMB) | payer MEDICARE, SELFPAY ==
[2023-09-19 08:02] VITALS: BP 140/52; BP 140/74; BMI 31.0
[2024-07-17 10:01] VITALS: BP 138/64; PULSE 82; O2SAT 100; BMI 32.0
--- NOTE | 2024-07-17 10:01 | A.OFFPC_ITS ---
Vital Signs 07/17/24 10:01 Height 5 ft 9 in Weight 217 lb BMI 32.0 BP 138/64 Blood Pressure Location Lt brachial Position Sitting Pulse 82 Pulse Source Pulse Oximeter Pulse Oximetry (%) 100 Oxygen Delivery Method Room Air Intake Visit Reasons: [facility] 07/03 right ankle Intake Note: Patient is here to follow-up after a visit the emergency department at [facility] on 07/03/24 Occupational Health Manager Required: No Allergies olmesartan Allergy (Unknown, Verified 07/17/24 10:01) Diarrhea Medication List - Last Reconciled 07/17/24 by Luz Hastings PA-C acetaminophen 500 mg PO Q6H PRN amlodipine 5 mg PO DAILY aspirin 81 mg PO DAILY blood pressure monitor (Blood Pressure Kit) As directed blood sugar diagnostic (Repp[employer]uch Ultra Test strips) As directed blood-glucose meter (Repp[employer]uch Ultra2 Meter) As directed carbidopa-levodopa 25-100 mg 1 tab PO TID dapagliflozin propanediol (Farxiga) 10 mg PO DAILY diclofenac sodium 1% 4 grams topical QID ezetimibe (Zetia) 10 mg PO DAILY furosemide 40 mg PO DAILY glipizide ER 5 mg PO DAILY 30 days insulin glargine (Basaglar KwikPen U-100 Insulin) 23 units (0.23 mL) subcut DAILY isosorbide mononitrate ER 30 mg PO DAILY [Januvia ] lancets ([employer] GroupTouch UltraSoft Lancets) Testing 4 times a day lancets ([employer] GroupTouch Delica Plus Lancet) As directed check the BS TID lidocaine 4% 1 patch topical DAILY PRN liraglutide (Victoza 2-Sharad) 1.8 mg (0.3 mL) subcut DAILY 30 days metoprolol succinate ER 200 mg PO DAILY mirtazapine 7.5 mg PO BEDTIME omeprazole 40 mg PO BID@0630,1630 pen needle, diabetic (1st Tier Unifine Pentips) As directed inject insulin 4 times a day pen needle, diabetic (BD Ultra-Fine Micro Pen Needle) test 4 times per day rosuvastatin 40 mg PO BEDTIME sertraline 25 mg PO DAILY sucralfate 1 g PO QIDACHS 90 days Tobacco use date assessed: 12/16/23 Fall risk assessment: No Falls in past year Last assessed Fall Risk: 07/17/24 Dental Screening Dental Screen Date: 03/25/24 HPI [facility] 07/03 right ankle HPI Details 69-year-old male with past medical histo ry of diabetes mellitus, hypercholesterolemia, coronary artery disease, cardiomyopathy, Alzheimer's and chronic kidney disease last seen by coming in for hospital discharge follow up. In review of the notes, patient was seen in [facility] ED 07/04/2024 after having bruise in the right lower extremity after a fall x-rays were negative and no suspicion for DVT discharged home to use Tylenol as needed for pain. Patient states he had a fall out of bed and had subsequent right lower extremity swelling and redness when evaluated by the ER was not found to have any acute fracture or dislocation. The swelling has gone down significantly since the initial injury however he still does have redness and tenderness in the right lower leg on the medial aspect of the ankle. Denies any calf pain, fevers or shortness of breath. PFS Medical History Chronic renal insufficiency Parkinson disease Alzheimer disease Leukocytosis Screening for prostate cancer Generalized anxiety disorder Diarrhea Anxiety and depression Type 2 diabetes mellitus with hyperglycemia Hypercholesterolemia GERD (gastroesophageal reflux disease) Vitamin D deficiency Obesity (BMI 30-39.9) Coronary artery disease Hypertension Humeral fracture Surgical History Hx of cardiac catheterization History of endoscopic gastrointestinal surgery History of colonoscopy History of coronary artery bypass graft History of umbilical hernia repair History of tonsillectomy History of repair of rotator cuff History of cholecystectomy Family History Father Lung cancer Mother Diabetes Hypertension Social History Household Members: Spouse Housing: House Do you presently have visiting nurse or other home services: No Alcohol intake: never Patient Tobacco Use Status: Never used Tobacco Tobacco use type: Smokeless Tobacco e-Cigarette/Vaping Use: Never Used Second Hand Smoke Exposure: No Advance Directives Date on File: 03/07/22 service: No Current occupational status: retired Cognitive needs: No Hearing needs: No Vision needs: Yes (glasses) Questionnaire Thrive Questionnaire Date Thrive assessed: 12/16/23 AUDIT C Alcohol Use Questionnaire (AUDIT-C) 1. How often do you have a drink containing alcohol?: Never 3. How often do you have six or more drinks on one occasion?: Never Total Score: 0 Score Reviewed/Action Taken: Yes (Reviewed no action needed at this time) RHIANNA-7 AMB Questionnaire RHIANNA-7 Date RHIANNA - 7 assessed: 12/16/23 Source: Developed by Drs. Isaiah Han, Shanna Otero, Mike Flores and colleagues, with an educational filippo from [employer]. Review of Systems Const Denies body aches, Denies chills, Denies fever(s), Denies headache(s) and Denies poor appetite Eyes Reports no additional complaints ENT Denies dizziness and Denies headache(s) Card Denies chest pain, Denies lightheadedness and Denies dyspnea Resp Denies dyspnea GI Denies abdominal pain and Denies nausea Reports no additional complaints Musc Details: Right lower extremity pain and swelling Reports no additional complaints and Denies abnormal gait Skin/Breast Details: Redness of right lower extremity Neuro Denies abnormal gait, Denies dizziness and Denies headache(s) Psych Reports no additional complaints Physical exam (Primary Care) Vital Signs: Last Vital Signs Pulse 82 07/17/24 10:01 BP 138/64 07/17/24 10:01 Pulse Ox 100 07/17/24 10:01 Oxygen Delivery Method Room Air 07/17/24 10:01 BMI result Body Mass Index 32.0 Tobacco/Smoking Status: Tobacco use Status Tobacco use date assessed 12/16/23 07/17/24 10:08 Patient Tobacco Use Status Never used Tobacco 07/17/24 10:08 Tobacco use type Smokeless Tobacco 07/17/24 10:08 e-Cigarette/Vaping Use Never Used 07/17/24 10:08 Thrive Assessment: Date of Thrive Assessment Date Thrive assessed 12/16/23 07/17/24 10:08 Const General: cooperative, healthy appearing, comfortable and no acute distress Orientation/consciousness: patient oriented x3 HENMT Head: Yes normocephalic Ears: hearing grossly normal bilaterally General nose exam: Normal external nose present Eyes General: appearance normal, both eyes and all related structures Conjunctivae: conjunctivae normal Neck Neck: Yes full ROM and Yes no lymphadenopathy Resp Effort & Inspection: normal respiratory effort Auscultation: clear to auscultation bilaterally, no crackles, no rales, no rhonchi and no wheezes Cardio Rate: regular rate Rhythm: regular rhythm Skin General skin exam: no rashes or lesions noted Neuro General: patient oriented x3 Gait exam (Neuro): Normal gait present Extrem Other: 1+ pitting edema and swelling of medial aspect of right ankle. Erythema, warmth, tenderness to palpation of right lower leg. No swelling, redness, warmth of bilateral calves General: Yes normal to inspection, Yes full ROM and No edema Psych Affect: normal affect Attitude: cooperative Insight: Good insight present (Psych) Judgement: Good judgement present (Psych) Assessment and Plan Assessment & Plan (1) Cellulitis: Code(s): L03.90 - Cellulitis, unspecified Plan: On exam patient presentation was consistent with cellulitis evidenced by right lower extremity 1+ pitting edema, erythema, warmth and tenderness to palpation. Presentation not consistent with normal healing of a bruise on the right lower extremity. Low concern for DVT as swelling and redness are in the medial aspect of right ankle. We will trial Augmentin twice daily for 7 days and advised patient to monitor symptoms and follow up if symptoms worsen or do not improve. Reviewed red flag symptoms of both DVT and cellulitis and when to present for re-evaluation. Plan This note was constructed using voice recognition software. While every effort has been made to ensure accuracy and federal court of appeals law clerk, still areas may have been included sometimes these areas may affect the content or meeting of the given symptoms. Total time spent caring for the patient today was 30 minutes. This includes time spent before the visit reviewing the chart, time spent during the visit, and time spent after the visit and documentation. Medications: New amoxicillin-pot clavulanate 875-125 mg 1 tab PO BID 7 days 14 tabs 0RF Coding Level of Care Code Est Pt Level 4 (16551) Diagnoses Cellulitis L03.90
== END 2024-07-17 10:51 | disposition home or self-care (01) ==
DX: L03.90 Cellulitis, unspecified (principal)

== ENCOUNTER → 2024-07-17 10:00 | Outpatient (BNVA) | payer MEDICARE, SELFPAY ==
[2023-09-19 08:02] VITALS: BP 140/52; BP 140/74; BMI 31.0
== END ==
DX: L03.90 Cellulitis, unspecified (principal)
CPT/HCPCS: 99212

== ENCOUNTER 2024-08-11 10:38 | Outpatient (AMB) | payer MEDICARE, SELFPAY ==
[2023-09-19 08:02] VITALS: BP 140/52; BP 140/74; BMI 31.0
--- NOTE | 2024-08-11 10:41 | MHC.PC.OV ---
Vital Signs 08/11/24 10:43 Height 5 ft 9 in Weight 220 lb 4 oz BMI 32.5 BP 110/60 Blood Pressure Location Lt brachial Position Sitting Pulse 81 Pulse Source Pulse Oximeter Pulse Oximetry (%) 97 Oxygen Delivery Method Room Air Intake Visit Reasons: dementia, parkinsons, DM - see comments Intake Note: Patient is here to follow up on Dementia, Parkinson, DM. Concern of redness on right leg. Mobile Engineer Required: No Oracle Fusion Developer: Present Accompanied by: Spouse Allergies amoxicillin Allergy (Severe, Verified 08/11/24 10:51) Diarrhea olmesartan Allergy (Unknown, Verified 08/11/24 10:51) Diarrhea Tobacco use date assessed: 08/11/24 Fall risk assessment: No Falls in past year Last assessed Fall Risk: 08/11/24 Dental Screening Dental Screen Date: 03/25/24 HPI dementia, parkinsons, DM - see comments HPI Details 69-year-old obese male with multiple medical problems coronary artery disease hypertension hypercholesterolemia diabetes mellitus generalized anxiety and depression BPH history of gastric ulcer cognitive impairment congestive heart failure Alzheimer's disease coming in for follow-up. Last seen in July 17 diagnosis of cellulitis in the right lower extremity. Patient's colonoscopy is up-to-date 2021. July 04 had a bathroom fall. Patient follows up with Cardiology June 29 diffuse CAD medical management aspirin of Plavix due to GI bleeding statins normalized ejection fraction continuing with diuretics and beta blockers Alfredo inhibitor stop due to rising creatinine. On . Patient also sees ortho for hip OA trochanteric bursitis advised physical therapy.. complains of having R leg redness / cellulitis, better but still having still the bump and redness PFSH Medical History Chronic renal insufficiency Parkinson disease Alzheimer disease Leukocytosis Screening for prostate cancer Generalized anxiety disorder Diarrhea Anxiety and depression Type 2 diabetes mellitus with hyperglycemia Hypercholesterolemia GERD (gastroesophageal reflux disease) Vitamin D deficiency Obesity (BMI 30-39.9) Coronary artery disease Hypertension Humeral fracture Surgical History Hx of cardiac catheterization History of endoscopic gastrointestinal surgery History of colonoscopy History of coronary artery bypass graft History of umbilical hernia repair History of tonsillectomy History of repair of rotator cuff History of cholecystectomy Family History Father Lung cancer Mother Diabetes Hypertension Social History Household Members: Spouse Housing: House Do you presently have visiting nurse or other home services: No Alcohol intake: never Patient Tobacco Use Status: Never used Tobacco Tobacco use type: Smokeless Tobacco e-Cigarette/Vaping Use: Never Used Second Hand Smoke Exposure: No Advance Directives Date on File: 03/07/22 service: No Current occupational status: retired Cognitive needs: No Hearing needs: No Vision needs: Yes (glasses) Questionnaire Thrive Questionnaire Date Thrive assessed: 12/16/23 RHIANNA-7 AMB Questionnaire RHIANNA-7 Date RHIANNA - 7 assessed: 12/16/23 Source: Developed by Drs. Isaiah Han, Shanna Otero, Mike Flores and colleagues, with an educational filippo from [employer]. Physical exam (Primary Care) Vital Signs: Last Vital Signs Pulse 81 08/11/24 10:43 BP 110/60 08/11/24 10:43 Pulse Ox 97 08/11/24 10:43 Oxygen Delivery Method Room Air 08/11/24 10:43 BMI result Body Mass Index 32.5 Tobacco/Smoking Status: Tobacco use Status Tobacco use date assessed 08/11/24 08/11/24 10:54 Patient Tobacco Use Status Never used Tobacco 08/11/24 10:54 Tobacco use type Smokeless Tobacco 08/11/24 10:54 e-Cigarette/Vaping Use Never Used 08/11/24 10:54 Thrive Assessment: Date of Thrive Assessment Date Thrive assessed 12/16/23 08/11/24 10:54 Const General: alert; No acute distress Eyes Conjunctivae: conjunctivae normal Resp Auscultation: clear to auscultation bilaterally Cardio Rate: regular rate Rhythm: regular rhythm GI Inspection: Yes normal to inspection Extrem General: Yes normal to inspection and No edema Results AMB Hemoglobin A1c AMB Hemoglobin A1c 6.4 % Last Edit by JESSICA Huitron on 08/11/24 10:55 Results Reviewed Results Reviewed: Laboratory Last Values Hgb A1c (Clinic) 6.4 % (4.0-6.0) H 08/11/24 10:40 Coding Level of Care Code Est Pt Level 4 (58778) Complex EM visit Add On G2211 Diagnoses Trochanteric bursitis, left hip M70.62 Type 2 diabetes mellitus with hyperglycemia, with long-term current use of insulin E11.65; Z79.4 Diabetes mellitus termite control representative insulin use: with termite control representative use Hypercholesterolemia E78.00 Obesity (BMI 30-39.9) E66.9 Coronary artery disease involving [place] coronary artery of [place] heart without angina pectoris I25.10 Associated angina: without angina Coronary Disease-Associated Artery/Lesion type: [place] artery [place] vs. transplanted heart: [place] heart Essential hypertension I10 Hypertension type: essential hypertension Generalized anxiety disorder F41.1 BPH with obstruction/lower urinary tract symptoms N40.1; N13.8 Chronic HFrEF (heart failure with reduced ejection fraction) I50.22 Alzheimer disease G30.9; F02.80 Cellulitis of right lower extremity L03.115 Site of cellulitis: extremity Site of cellulitis of extremity: lower extremity Laterality: right Assessment & Plan Assessment & Plan (1) Trochanteric bursitis, left hip: Code(s): M70.62 - Trochanteric bursitis, left hip Category: Medical Plan: Patient has seen ortho and has advised physical therapy (2) Type 2 diabetes mellitus with hyperglycemia: Code(s): E11.65 - Type 2 diabetes mellitus with hyperglycemia Category: Medical Qualifiers: Diabetes mellitus termite control representative insulin use: with [facility] use Qualified Code(s): E11.65 - Type 2 diabetes mellitus with hyperglycemia; Z79.4 - termite control representative (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 Plan: Decrease the amount of carbohydrate intake, pasta, bread, rice and potatoes are all sugar and that is aside from all the sweet stuff, remember that fruits are good but they are Sweet also. Hemoglobin A1c goal of less than 7.0 on Farxiga glipizide Basaglar Victoza. (3) Hypercholesterolemia: Code(s): E78.00 - Pure hypercholesterolemia, unspecified Category: Medical Plan: Avoid fried foods, chicken skin, eggs, butter margarine, pastries and meat. Be it pork or beef they have a lot of cholesterol on rosuvastatin 40 mg once a day LDL goal of less than 70 and triglyceride of less than 150. March 2024 last blood work (4) Obesity (BMI 30-39.9): Code(s): E66.9 - Obesity, unspecified Category: Medical Plan: Diet and exercise (5) Coronary artery disease: Code(s): I25.10 - Atherosclerotic heart disease of [place] coronary artery without angina pectoris Category: Medical Qualifiers: Associated angina: without angina Coronary Disease-Associated Artery/Lesion type: [place] artery [place] vs. transplanted heart: [place] heart Qualified Code(s): I25.10 - Atherosclerotic heart disease of [place] coronary artery without angina pectoris Plan: Control the cholesterol, weight, blood pressure, diabetes continuing to aspirin (6) Hypertension: Code(s): I10 - Essential (primary) hypertension Category: Medical Qualifiers: Hypertension type: essential hypertension Qualified Code(s): I10 - Essential (primary) hypertension Plan: Continue with blood pressure medication. Decrease salt intake and exercise on amlodipine 5 mg once a day metoprolol 200 mg once a day (7) Generalized anxiety disorder: Code(s): F41.1 - Generalized anxiety disorder Category: Medical Plan: Continue with present therapy (8) BPH with obstruction/lower urinary tract symptoms: Comment: Ultrasound December 2022 Code(s): N40.1 - Benign prostatic hyperplasia with lower urinary tract symptoms; N13.8 - Other obstructive and reflux uropathy Category: Medical Plan: Presently stable (9) Chronic HFrEF (heart failure with reduced ejection fraction): Code(s): I50.22 - Chronic systolic (congestive) heart failure Category: Medical Plan: Weigh daily on furosemide 40 mg once a day (10) Alzheimer disease: Comment: Neuro 06/2023 Code(s): G30.9 - Alzheimer's disease, unspecified; F02.80 - Dementia in other diseases classified elsewhere, unspecified severity, without behavioral disturbance, psychotic disturbance, mood disturbance, and anxiety Category: Medical Plan: Continue with supportive management (11) Cellulitis: Comment: R leg Code(s): L03.90 - Cellulitis, unspecified Category: Medical Qualifiers: Site of cellulitis: extremity Site of cellulitis of extremity: lower extremity Laterality: right Qualified Code(s): L03.115 - Cellulitis of right lower limb Plan: Different antibiotic prescription sent in advised to increase oral fluids. When sitting down elevate the legs, exercise, and support stockings Orders: Orders Complete Blood Count Auto Diff Today I50.22 - Chronic systolic (congestive) heart failure B Type Natriuretic Peptide Today I50.22 - Chronic systolic (congestive) heart failure Thyroid Stimulating Hormone Today I50.22 - Chronic systolic (congestive) heart failure UA CC w/rflx Micro + Cult Today I50.22 - Chronic systolic (congestive) heart failure, R30.0 - Dysuria AMB Hemoglobin A1c Today E11.65 - Type 2 diabetes mellitus with hyperglycemia, Z79.4 - FDC (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 Comprehensive Met. Panel Today I50.22 - Chronic systolic (congestive) heart failure Free T4 (Free Thyroxine) Today I50.22 - Chronic systolic (congestive) heart failure Hemoglobin A1c 3 Months I50.22 - Chronic systolic (congestive) heart failure Medications: New sulfamethoxazole-trimethoprim 800-160 mg (Bactrim DS) 1 tab PO BID 14 tabs 0RF L03.90 - Cellulitis, unspecified
[2024-08-11 10:43] VITALS: BP 110/60; PULSE 81; O2SAT 97; BMI 32.5
== END 2024-08-11 11:39 | disposition home or self-care (01) ==
PROVIDERS: PCP Internal Medicine; Visit Provider Internal Medicine
DX: E11.65 Type 2 diabetes mellitus with hyperglycemia (principal); Z79.4 Long term (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; G30.9 Alzheimer's disease, unspecified; I50.22 Chronic systolic (congestive) heart failure; F02.80 Dementia in other diseases classified elsewhere, unspecified severity, without behavioral disturbance, psychotic disturbance, mood disturbance, and anxiety; M70.62 Trochanteric bursitis, left hip; E78.00 Pure hypercholesterolemia, unspecified; E66.9 Obesity, unspecified; I25.10 Atherosclerotic heart disease of native coronary artery without angina pectoris; I10 Essential (primary) hypertension; F41.1 Generalized anxiety disorder; N40.1 Benign prostatic hyperplasia with lower urinary tract symptoms

== ENCOUNTER → 2024-08-11 10:38 | Outpatient (BNVA) | payer MEDICARE, SELFPAY ==
[2023-09-19 08:02] VITALS: BP 140/52; BP 140/74; BMI 31.0
== END ==
PROVIDERS: PCP Internal Medicine; Visit Provider Internal Medicine
DX: G30.9 Alzheimer's disease, unspecified (principal); F02.80 Dementia in other diseases classified elsewhere, unspecified severity, without behavioral disturbance, psychotic disturbance, mood disturbance, and anxiety; E11.65 Type 2 diabetes mellitus with hyperglycemia; M70.62 Trochanteric bursitis, left hip; E78.00 Pure hypercholesterolemia, unspecified; E66.9 Obesity, unspecified; Z68.32 Body mass index [BMI] 32.0-32.9, adult; I25.10 Atherosclerotic heart disease of native coronary artery without angina pectoris; F41.1 Generalized anxiety disorder; N40.1 Benign prostatic hyperplasia with lower urinary tract symptoms; N13.8 Other obstructive and reflux uropathy; I11.0 Hypertensive heart disease with heart failure; I50.22 Chronic systolic (congestive) heart failure; L03.115 Cellulitis of right lower limb; Z79.4 Long term (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; Z79.899 Other long term (current) drug therapy
CPT/HCPCS: 83036; 99212

== ENCOUNTER 2024-12-10 09:34 | Outpatient (AMB) | payer MEDICARE, SELFPAY ==
[2023-09-19 08:02] VITALS: BP 140/52; BP 140/74; BMI 31.0
--- NOTE | 2024-12-10 09:42 | A.OFFPC_ITS ---
Vital Signs 12/10/24 09:43 12/10/24 10:15 Height 5 ft 9 in Weight 221 lb BMI 32.6 BP 142/80 H 132/70 Blood Pressure Location Lt brachial Lt brachial Position Sitting Sitting Pulse 86 Pulse Source Pulse Oximeter Pulse Oximetry (%) 98 Oxygen Delivery Method Room Air Intake Visit Reasons: DM Allergies amoxicillin Allergy (Severe, Verified 12/10/24 09:43) Diarrhea olmesartan Allergy (Unknown, Verified 12/10/24 09:43) Diarrhea Medication List - Last Reconciled 12/10/24 by Luke Albright MD acetaminophen 500 mg PO Q6H PRN amlodipine 5 mg PO DAILY aspirin 81 mg PO DAILY blood pressure monitor (Blood Pressure Kit) As directed blood sugar diagnostic (Panoramic PowerTouch Ultra Test strips) As directed blood-glucose meter ([employer] Ultra2 Meter) As directed carbidopa-levodopa 25-100 mg 1 tab PO TID 90 days dapagliflozin propanediol (Farxiga) 10 mg PO DAILY diclofenac sodium 1% 4 grams topical QID ezetimibe (Zetia) 10 mg PO DAILY furosemide 40 mg PO DAILY glipizide ER 5 mg PO DAILY 30 days insulin glargine (Basaglar KwikPen U-100 Insulin) 23 units (0.23 mL) subcut DAILY isosorbide mononitrate ER 30 mg PO DAILY lancets (Panoramic PowerTouch UltraSoft Lancets) Testing 4 times a day lancets (Panoramic PowerTouch Delica Plus Lancet) As directed check the BS TID lidocaine 4% 1 patch topical DAILY PRN metoprolol succinate ER 200 mg PO DAILY mirtazapine 7.5 mg PO BEDTIME pen needle, diabetic (1st Tier Unifine Pentips) As directed inject insulin 4 times a day pen needle, diabetic (BD Ultra-Fine Micro Pen Needle) test 4 times per day rosuvastatin 40 mg PO BEDTIME sertraline 25 mg PO DAILY sucralfate 1 g PO QIDACHS 90 days Tobacco use date assessed: 12/10/24 Fall risk assessment: No Falls in past year Last assessed Fall Risk: 12/10/24 Dental Screening Dental Screen Date: 12/10/24 Did you have a dental visit in the last 12 months?: No Did you have a dental problem in the last 6 months where you did not have access to dental care?: No Was dental information given to patient?: Patient has dentist HPI DM HPI Details The patient is a 69-year-old male presenting with a follow-up for chronic conditions. He has a history of essential hypertension, coronary artery disease, diabetes mellitus, hypercholesterolemia, generalized anxiety disorder, benign prostatic hyperplasia, a history of gastric ulcer in January 2023, mild congestive heart failure, mild obstructive sleep apnea diagnosed in May 2023, and mild cognitive impairment. The patient also has a diagnosis of dementia with Parkinson's disease. He experiences some neck pain, which he attributes to a fall in the summer. His primary concerns include the management of his diabetes and hypertension. He reports taking Farxiga, glipizide, and basal insulin for diabetes mellitus, with a recent hemoglobin A1c of 7.1, increased from 6.4. Despite occasional dietary indiscretions around holidays, he maintains blood glucose levels usually around 125 mg/dL. He takes amlodipine, isosorbide mononitrate, and metoprolol for hypertension, avoiding olmesartan due to diarrhea. He experiences muscle stiffness in his neck, heightened during physical activities like walking his dog. He reports no chest pain, even when exercising on inclines. His shoulder has endured episodes of dislocation, with the last event corrected without professional medical intervention. The patient is concerned about difficulties securing a neurologist for ongoing management of his neurocognitive condition, as recent attempts to find a new provider were unsuccessful. [facility] Medical History Chronic renal insufficiency Parkinson disease Alzheimer disease Leukocytosis Screening for prostate cancer Generalized anxiety disorder Diarrhea Anxiety and depression Type 2 diabetes mellitus with hyperglycemia Hypercholesterolemia GERD (gastroesophageal reflux disease) Vitamin D deficiency Obesity (BMI 30-39.9) Coronary artery disease Hypertension Humeral fracture Surgical History Hx of cardiac catheterization History of endoscopic gastrointestinal surgery History of colonoscopy History of coronary artery bypass graft History of umbilical hernia repair History of tonsillectomy History of repair of rotator cuff History of cholecystectomy Family History Father Lung cancer Mother Diabetes Hypertension Social History Household Members: Spouse Housing: House Do you presently have visiting nurse or other home services: No Alcohol intake: never Patient Tobacco Use Status: Never used Tobacco e-Cigarette/Vaping Use: Never Used Second Hand Smoke Exposure: No Advance Directives Date on File: 03/07/22 service: No Current occupational status: retired Cognitive needs: No Hearing needs: Yes Vision needs: Yes (glasses) Questionnaire PHQ-9 Over the last 2 weeks, how often have you been bothered by any of the following problems? 1. Little interest or pleasure in doing things: several days 2. Feeling down, depressed, or hopeless: several days 3. Trouble falling or staying asleep, or sleeping too much: several days 4. Feeling tired or having little energy: several days 5. Poor appetite or overeating: several days 6. Feeling bad about yourself - or that you are a failure or have let yourself or your family down: several days 7. Trouble concentrating on things, such as reading the newspaper or watching television: several days 8. Moving or speaking so slowly that other people could have noticed. Or the opposite - being so fidgety or restless that you have been moving around a lot more than usual: several days 9. Thoughts that you would be better off or of hurting yourself in some way: not at all Total score: 8 Depression Screening Interpretation: Positive Depression Screening Done: Yes 86932 - PHQ-9 Billing: Yes Source: Developed by Drs. Isaiah Han, Shanna Otero, Mike Flores and colleagues, with an educational filippo from [employer]. Thrive Questionnaire Date Thrive assessed: 12/10/24 I am a: Patient What is your living situation today?: I have a steady place to live Within the past 12 months, did the food you bought not last and you didn't have the money to get more?: Never true Within the past 12 months, did you worry whether your food would run out before you got money to buy more?: Never true Do you have trouble paying for medicines?: No Do you have trouble getting transportation to medical appointments?: No Do you have trouble paying your heating and electricity bill?: No Do you have trouble taking care of your child, family member or friend?: No Do you have trouble with day-to-day activities such as bathing, preparing meals, shopping, managing finances, etc.?: No Are you currently unemployed and looking for a job?: No Are you interested in more education?: No Currently or been in a relationship where the following occur: No concerns reported THRIVE Score: 0 AUDIT C Alcohol Use Questionnaire (AUDIT-C) 1. How often do you have a drink containing alcohol?: Never 3. How often do you have six or more drinks on one occasion?: Never Total Score: 0 Score Reviewed/Action Taken: Yes (Reviewed no action needed at this time) RHIANNA-7 AMB Questionnaire RHIANNA-7 Date RHIANNA - 7 assessed: 12/10/24 Feeling nervous, anxious, or on edge: 1 = Several days Not being able to stop or control worryin = Not at all Worrying too much about different things: 0 = Not at all Trouble relaxin = Not at all Being so restless that it is hard to sit still: 0 = Not at all Becoming easily annoyed or irritable: 0 = Not at all Feeling afraid as if something awful might happen: 0 = Not at all Total RHIANNA-7 score (0-4 normal; 5-9 mild; 10-14 moderate; 15-21 severe): 1 Source: Developed by Drs. Isaiah Han, Shanna Otero, Mike Flores and colleagues, with an educational filippo from [employer]. Physical exam (Primary Care) Vital Signs: Last Vital Signs Pulse 86 12/10/24 09:43 BP 142/80 H 12/10/24 09:43 Pulse Ox 98 12/10/24 09:43 Oxygen Delivery Method Room Air 12/10/24 09:43 BMI result Body Mass Index 32.6 Tobacco/Smoking Status: Tobacco use Status Tobacco use date assessed 12/10/24 12/10/24 09:48 Patient Tobacco Use Status Never used Tobacco 12/10/24 09:48 Tobacco use type 12/10/24 09:57 e-Cigarette/Vaping Use Never Used 12/10/24 09:48 PHQ-9: PHQ-9 Score PHQ-9: Total score 8 12/10/24 10:05 Depression Screening Interpretation: Positive Thrive Assessment: Date of Thrive Assessment Date Thrive assessed 12/10/24 12/10/24 09:48 Currently or been in a relationship where the following occur: No concerns reported Const General: alert; No acute distress Eyes Conjunctivae: conjunctivae normal Resp Auscultation: clear to auscultation bilaterally Cardio Rate: regular rate Rhythm: regular rhythm GI Inspection: Yes normal to inspection Extrem General: Yes normal to inspection and No edema Results AMB Hemoglobin A1c AMB Hemoglobin A1c 7.1 % Last Edit by Tequila Perdue CMA on 12/10/24 10 :12 Coding Level of Care Code Est Pt Level 4 (07530) Complex EM visit Add On G2211 Diagnoses Type 2 diabetes mellitus with hyperglycemia, with long-term current use of insulin E11.65; Z79.4 Diabetes mellitus jail insulin use: with jail use Obesity (BMI 30-39.9) E66.9 Coronary artery disease involving [place] coronary artery of [place] heart without angina pectoris I25.10 Coronary Disease-Associated Artery/Lesion type: [place] artery [place] vs. transplanted heart: [place] heart Associated angina: without angina Essential hypertension I10 Hypertension type: essential hypertension BPH with obstruction/lower urinary tract symptoms N40.1; N13.8 Gastric ulcer K25.9 Chronic HFrEF (heart failure with reduced ejection fraction) I50.22 Alzheimer disease G30.9; F02.80 Parkinson disease G20.A1 Additional Codes PHQ-9 - 50523 - PHQ-9 Billing: Yes ([id number]) Assessment & Plan Assessment & Plan (1) Type 2 diabetes mellitus with hyperglycemia: Code(s): E11.65 - Type 2 diabetes mellitus with hyperglycemia Category: Medical Qualifiers: Diabetes mellitus terminal gauger supervisor insulin use: with jail use Qualified Code(s): E11.65 - Type 2 diabetes mellitus with hyperglycemia; Z79.4 - detention (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 Plan: Decrease the amount of carbohydrate intake, pasta, bread, rice and potatoes are all sugar and that is aside from all the sweet stuff, remember that fruits are good but they are Sweet also. Hemoglobin A1c goal of less than 7.0 patient is on Farxiga glipizide Basaglar 23 units once a day Victoza. (2) Obesity (BMI 30-39.9): Code(s): E66.9 - Obesity, unspecified Category: Medical Plan: Diet and exercise (3) Coronary artery disease: Code(s): I25.10 - Atherosclerotic heart disease of [place] coronary artery without angina pectoris Category: Medical Qualifiers: Coronary Disease-Associated Artery/Lesion type: [place] artery [place] vs. transplanted heart: [place] heart Associated angina: without angina Qualif ied Code(s): I25.10 - Atherosclerotic heart disease of [place] coronary artery without angina pectoris Plan: Control the cholesterol, weight, blood pressure, diabetes on aspirin 81 mg once a day (4) Hypertension: Code(s): I10 - Essential (primary) hypertension Category: Medical Qualifiers: Hypertension type: essential hypertension Qualified Code(s): I10 - Essential (primary) hypertension Plan: Continue with blood pressure medication. Decrease salt intake and exercise patient takes amlodipine 5 mg once a day isosorbide mononitrate metoprolol 200 mg once a day had diarrhea with olmesartan. (5) BPH with obstruction/lower urinary tract symptoms: Comment: Ultrasound December 2022 Code(s): N40.1 - Benign prostatic hyperplasia with lower urinary tract symptoms; N13.8 - Other obstructive and reflux uropathy Category: Medical Plan: Stable (6) Gastric ulcer: Comment: January 2023 Code(s): K25.9 - Gastric ulcer, unspecified as acute or chronic, without hemorrhage or perforation Category: Medical Plan: Avoid the foods that causes that usually spicy foods, tomato products, juices, coffee, soda and foods that your sensitive to. After eating do not lie down, allow 3-4 hours before in lie down. And keep the head of bed above 30 degrees to avoid the acid from going up. Continue with omeprazole (7) Chronic HFrEF (heart failure with reduced ejection fraction): Code(s): I50.22 - Chronic systolic (congestive) heart failure Category: Medical Plan: Patient on furosemide and beta blockers and Farxiga (8) Alzheimer disease: Comment: Neuro 06/2023 Code(s): G30.9 - Alzheimer's disease, unspecified; F02.80 - Dementia in other diseases classified elsewhere, unspecified severity, without behavioral disturbance, psychotic disturbance, mood disturbance, and anxiety Category: Medical (9) Parkinson disease: Comment: neuro Dr. Corrales Code(s): G20.A1 - Parkinson's disease without dyskinesia, without mention of fluctuations Category: Medical Plan 1. 0: - Monitor for potential hypoglycemic episodes due to glipizide and ensure regular blood glucose checks. - Continue omeprazole for management of gastroesophageal reflux. - Initiate appropriate stretching exercises to alleviate neck muscle discomfort and consider the use of heating pads as non-pharmacological intervention for muscle stiffness. - Discussed the importance of securing a reliable neurologist for ongoing management of Parkinson's disease and associated dementia, considering previous challenges in accessing appropriate neurological care. - Encourage continued ambulatory activities like walking, carefully considering environmental conditions to prevent falls. - Plan a follow-up visit with repeat blood work in three months to monitor diabetes control and lipid profile adecuation. - Reaffirmed the importance of stable control of all chronic conditions, including CHF, VILMA, and anxiety disorder. - Address the cataracts noted by the manager of financial planning with continued routine monitoring. Orders: Orders Vitamin B12 and Folate Today F02.80 - Dementia in other diseases classified elsewhere, unspecified severity, without behavioral disturbance, psychotic disturbance, mood disturbance, and anxiety, G30.9 - Alzheimer's disease, unspecified AMB Hemoglobin A1c Today Z13.9 - Encounter for screening, unspecified Lipid Panel Today E78.00 - Pure hypercholesterolemia, unspecified Referrals Neurology Referral G20.A1 - Parkinson's disease without dyskinesia, without mention of fluctuations Medications: Refilled dulaglutide (Trulicity) 1.5 mg (0.5 mL) subcut QWEEK 2 mL 12RF E11.65 - Type 2 diabetes mellitus with hyperglycemia, Z79.4 - intermediate school teacher (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
[2024-12-10 09:43] VITALS: BP 142/80; PULSE 86; O2SAT 98; BMI 32.6
[2024-12-10 10:15] VITALS: BP 132/70
--- OUTSIDE RECORDS SUMMARY | 2024-12-10 10:22 | XMS_ITS ---
Author Organization [facility] Address [address] [place] [address] Care Team Providers Care Angiography Technologist Name Role Phone Luke Albright Primary Care Provider Shayna Chung Unavailable [phone] Jacobo Facundo Unavailable [phone] Allergies No Known Allergies REASON FOR VISIT Painful nail(s) aggrevated by shoes and causing difficulty standing/walking. Medications Medication SIG (Take, Route, Frequency, Duration) Notes Start Date End Date Status Econazole Nitrate 1 % 1 application to affected area Externally Once a day for 30 days 09/12/2015 Not-Taking Metformin & Diet Manage Prod Not-Taking Metoprolol Tartrate 100 MG Oral Not-Taking Tolnaftate 1 % Externally Twice a day 03/08/2014 Not-Taking Tolnaftate 1 % 1 application to affected area Externally Twice a day for 30 days Not-Taking Loratadine 10 mg Once a day Ac tive Simvastatin Active Metoprolol Succinate Active Extra-Depth Diabetic Shoes with 3 Pair Custom heat-molded multi-density innersoles . 1pair shoes/3sets inserts . . for 1 year Active Extra Depth Diabetic Shoes with 3 Pair Custom heat-molded multi-density innersoles for 1 year Dx: 11/16/2020 Not-Taking Extra Depth Diabetic Shoes with 3 Pair Custom heat-molded multi-density innersoles for 1 year Dx: Active Glimepiride 4 MG Oral Once a day Active Insulin Cartridge 3ML Active hydroCHLOROthiazide Active Lisinopril Active Fenofibrate 160 MG 1 tablet Oral Once a day Active Ammonium Lactate 12 % 1 application Externally Twice a day for 30 days 11/16/2020 Active Atorvastatin Calcium 10 MG Oral Once a day Active amLODIPine Besylate Active Social History Tobacco Use: Social History Observation Description Date Details (start date - stop date) Never Smoker NA - NA Tobacco Use/Smoking Question Answer Notes Are you a: nonsmoker Additional Findings: Tobacco Non-User Current no n-smoker Alcohol Screen Question Answer Notes Did you have a drink containing alcohol in the p ast year? No Points 0 Interpretation Negative Tobacco use other than smoking: Question Answer Notes Are you an other tobacco user? No Vital Signs Height 5ft9in in 03/12/2024 Weight 209 lbs 03/12/2024 BMI 30.86 kg/m2 03/12/2024 Blood pressure systolic 136 mm Hg 03/12/20 24 Blood pressure diastolic 62 mm Hg 024 Encounters Encounter Location Date Provider Diagnosis [facility] [address] [place] [address] 03/12/2024 Facundo Centeno Tinea unguium B35.1 ; Ingrowing nail L60.0 ; Type 1 diabetes mellitus with diabetic polyneuropathy E10.42 ; Pain in right toe(s) M79.674 ; Pain in left toe(s) M79.675 ; Xerosis cutis L85.3 ; Tinea pedis B35.3 ; Other hammer toe(s) (acquired), left foot M20.42 and Other hammer toe(s) (acquired), right foot M20.41 Assessments Encounter Date Diagnosis (ICD Code) Assessment Notes Treatment Notes Treatment Clinical Notes Section Notes 03/12/2024 Tinea unguium (ICD-10 - B35.1) 03/12/2024 Ingrowing nail (ICD-10 - L60.0) 03/12/2024 Type 1 diabetes mellitus with diabetic polyneuropathy (ICD-10 - E10.42) 03/12/2024 Pain in right toe(s) (ICD-10 - M79.674) 03/12/2024 Pain in left toe(s) (ICD-10 - M79.675) 03/12/2024 Xerosis cutis (ICD-10 - L85.3) 03/12/2024 Tinea pedis (ICD-10 - B35.3) 03/12/2024 Other hammer toe(s) (acquired), left foot (ICD-10 - M20.42) 03/12/2024 Other hammer toe(s) (acquired), right foot (ICD-10 - M20.41) Plan Of Treatment Medication Medication Name Sig Start Date Stop Date Notes Extra Depth Diabetic Shoes w ith 3 Pair Custom heat-molded multi-density innersoles for 1 year Dx: Next Appt Details Follow Up: 3 Months, Reason: Provider Name:Shayna Baileyanders valadez, 01/28/2025 03:30:00 PM, [address] [place], [address], Procedure Notes * Category Sub-Category Detail Notes Debride Nail 6-10 Nail debridement Nail debridem ent performed extensively to reduce/remove overall nail length and girth, subungual debris, and necrotic tissue, by manual and electrical means with use of a nail nipper and/or dremel, to more viable healthy nail plate or bed tissue 6-10. Silver nitrate used for any petechial bleeding as necessary. Patient chooses, no pharmaceutical tx (14652) Keratoma Treatment Parring or Cutting o f Benign Hyperkeratotic Lesion(s) 02870 ( >4 Lesions) - The Benign hyperkeratotic lesions, as described above were pared, and/or cut utilizing a sterile #15 blade, tissue nippers, and/or dremel Progress Notes * Divya NAILS SrDOB: (69 yo M)Acc No.[id number]:03/12/2024 Progress Note Patient:?Divya Nails Provider:?Facundo Centeno DPM :1955???Age:69 Y???Sex:Male Dax e:03/12/2024 Address:[address] [place], [place] [id number] Pcp:Luke Albright Subjective: * Chief Complaints: * ??? Painful nail(s) aggrevat ed by shoes and causing difficulty standing/walking. * HPI: ???Painful Nails:?Pt States Last PCP Visit:?Date:?12/10/2023 ?Misc:?recent PR 04/24/23.? * ROS:?General/Constitutional:?Nausea?denies.?Vomiting?denies.?Hunger Thirst?denies.?Loss appetite?denies.?Chills?denies.?Fatigue?denies.?Fever?denies.?Night Sweats?denies.?Unexplained weight loss?denies.?Ophthalmologic:?Blurred vision?denies.?Red eye?denies.?HEENTM:?Dentures?admits.?Dizziness?denies.?Glasses/contacts?admits.?Retinopathy?de nies.?Blurred/double vision?denies.?TMJ?denies.?Discharge/drainage?denies.?Implants?denies.?Hard of hearing admits.?Difficulty chewing/swallowing/speaking?denies.?Nose bleeds?denies.?Sore mouth?denies.?Swollen glands?denies.?Respiratory:?On Oxygen?denies.?Pneumonia/pleurisy?denies.?Bronchitis?denies.?Emphysema?denies.?C oughing?denies.?Cough blood?denies.?Shortness of breath?denies.?Wheezing?denies.?Cardiovascular:?Pacemaker?denies.?MVP?denies.?WPW?denies.?CHF?denies.?Heart attack?denies.?Septal defect?denies.?Rapid beat?denies.?Chest pain ?denies.?Atrial Fib.?denies.?Murmur/Palpitations?denies.?Gastrointestinal:?Hemorrhoids?denies.?Stomach/Abdominal pain?denies.?Dark blood stool?denies.?Irritable bowel ?denies.?Constipation?denies.?Diarrhea?denies.?Vomiting?denies.?Hematology:?Swelling?denies.?Bruising?denies.?Bleeding problem?denies.?Genitourinary:?Blood urine?denies.?Frequent/Painfu/urination/bladder control?denies.?Kidney stones?denies.?Infection (UTI)?denies.?Nephropathy?denies.?Musculoskeletal:?Hammertoes?denies.?Bunions?denies.?Scoliosis/kyphosis?denies.?Muscle cramps / walking?denies.?Generalized aches and pains?denies.?Weakness?denies.?Integ.:?[place]?denies.?Scars?denies.?Corns/calluses?denies.?Ingrown nails?denies.?Painful nails?denies.?Rashes?denies.?Neurologic:?Difficulty sleeping?denies.?Bipolar?denies.?Brain disorder?denies.?Balance trouble?denies.?Confusion?denies.?Fainting/blackouts?denies.?Headache?denies.?Tr emors?denies.? * Medical History:? * Surgical History:?cholecyste ctomy 1987rotator cuff tear repair 2009triple bypass surgery 2000colonoscopy 04/04/2012hernia repair 10/30/2013 * Hospitalization/Major Diagno stic Procedure:?Patient went to [place] [facility] for gout. 11/30/11Went to [place] ER for sprained right ankle. 03/2013Patient went to [facility] for stitches in head. 08/2014pt went to [facility] for dislocated shoulder 07/07/15[facility] -constipation for 4 days given Meds 04/23/22[facility] - Stomach Issues 01/2023 * Family History:?Mother: dece ased, diagnosed with Diabetic - NIDDM.?Father: , diagnosed with Other specified conditions influencing health status.?Maternal Grand Mother: diabetes.?Siblings: diabetes.?Spouse: alive.? * Social History:?Tobacco Use:?Tobacco Use/Smoking?Are you a:?nonsmoker ?Additional Findings: Tobacco Non-User?Current non-smoker ?Tobacco use other than smoking?Are you an other tobacco user??No ???Drugs/Alcohol:?Drugs?Have you used drugs other than those for medical reasons in the past 12 months??No ?Alcohol Screen?Did you have a drink containing alcohol in the past year??No ?Points?0 ?Interpretation?Negative ???Miscellaneous:?Caffeine: yes, frequency:, 1.5 cups per day. ?Children: yes. ?Exercise: yes, walking,cutting wood,snow plow. ?Marital status: . 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 * Medications:?TakingAmmonium Lactate 12 % Cream 1 application Externally Twice a dayamLODIPine Besylate Atorvastatin Calcium 10 MG Tablet Oral Once a dayFenofibrate 160 MG Tablet 1 tablet Oral Once a dayGlimepiride 4 MG Tablet Oral Once a dayhydroCHLOROthiazide Insulin Cartridge 3ML Lisinopril Loratadine 10 mg Once a dayMetoprolol Succinate Simvastatin Extra-Depth Diabetic Shoes with 3 Pair Custom heat-molded multi-density innersoles . . 1pair shoes/3sets inserts . .Extra Depth Diabetic Shoes with 3 Pair Custom heat-molded multi-density innersoles for 1 year Dx:Taking Ammonium Lactate 12 % Cream 1 application Externally Twice a dayTaking amLODIPine Besylate Taking Atorvastatin Calcium 10 MG Tablet Oral Once a dayTaking Fenofibrate 160 MG Tablet 1 tablet Oral Once a dayTaking Glimepiride 4 MG Tablet Oral Once a dayTaking hydroCHLOROthiazide Taking Insulin Cartridge 3ML Taking Lisinopril Taking Loratadine 10 mg Once a dayTaking Metoprolol Succinate Taking Simvastatin Taking Extra-Depth Diabetic Shoes with 3 Pair Custom heat-molded multi-density innersoles . . 1pair shoes/3sets inserts . .Taking Extra Depth Diabetic Shoes with 3 Pair Custom heat-molded multi-density innersoles for 1 year Dx:Not- Taking/PRNExtra Depth Diabetic Shoes with 3 Pair Custom heat-molded multi-density innersoles for 1 year Dx:Metformin & Diet Manage Prod Econazole Nitrate 1 % Cream 1 application to affected area Externally Once a dayTolnaftate 1 % Cream Externally Twice a dayMetoprolol Tartrate 100 MG Tablet Oral Tolnaftate 1 % Cream 1 application to affected area Externally Twice a dayMedication List reviewed and reconciled with the patientNot-Taking/PRN Extra Depth Diabetic Shoes with 3 Pair Custom heat-molded multi-density innersoles for 1 year Dx:Not-Taking/PRN Metformin & Diet Manage Prod Not-Taking/PRN Econazole Nitrate 1 % Cream 1 application to affected area Externally Once a dayNot-Taking/PRN Tolnaftate 1 % Cream Externally Twice a dayNot- Taking/PRN Metoprolol Tartrate 100 MG Tablet Oral Not-Taking/PRN Tolnaftate 1 % Cream 1 application to affected area Externally Twice a dayMedication List reviewed and reconciled with the patient * Allergies:?N.K.D.A.yes[Aller gies Verified] Objective: * Vitals:?Ht: 5ft9in, Wt:209, BMI:30.86, Shoe size: 10.5, BP:136/62 mm Hg, BS: 97, Ht-cm: 175.26 cm, Wt-k.8 kg. * Examination: ???Neurological: ?SENSORY:?Neurological exam demonstrates , reduced vibration sensation , 5.07 monofilament test performed at plantar aspects of 5 varied sites per foot shows sensation , reduced , B/L.?Vascular: ?DP PULSES:?/4, B/L.?PT PULSES:?4, B/L.?CAPILLARY FILL TIME:?3 secs. per digit, b/l.?EDEMA:? 1/4, Right, 2/4, Left, Feet, Ankle(s), Leg(s).?Nails: ?NAILS are:?Elongated, overgrown, dystrophic, lytic, greater than 3mm thick, discolored and friable with crumbly malodorous subungual debris, with dull to no pain on palpation due to neuropathy, 1-5 Left foot, T5, T6, T9.?General Examination: ?GENERAL APPEARANCE:?alert, well hydrated, in no distress , good attention to hygiene.?ORIENTED:?person,place, and time.?FOOT EXAM:?Dermatologic: ?SKIN FINDINGS:?Skin exam reveals Keratotic lesion(s) located at, Medial plantar, TA, T5, Heel(s), B/L, Skin exam reveals Keratotic lesion(s) located at, Plantar, Midfoot, B/L Skin exam reveals Keratotic lesion(s) located at, SUB MTH (s), 2, 3, 4, B/L .?Ophthalmology Referral: ?DIABETES EYE EXAM?Ingrown Nail: ?INSPECTION:? Reveals nail incurvation, dull pain on palpation due to neuropathy, groove hypertrophy, Lateral nail border, T5.? Assessment: * Assessment: 1.?Tinea unguium - B35.1 (Pr imary)?2.?Ingrowing nail - L60.0?3.?Type 1 diabetes mellitus with diabetic polyneuropathy - E10.42?4.?Pain in right toe(s) - M79.674?5.?Pain in left toe(s) - M79.675?6.?Xerosis cutis - L85.3?7.?Tinea pedis - B35.3?8.?Other hammer toe(s) (acquired), left foot - M20.42?9.?Other hammer toe(s) (acquired), right foot - M20.41? Plan: * Treatment: * Procedures:?Debride Nail 6-10:?Nail debridement?Nail debridement performed extensively to reduce/remove overall nail length and girth, subungual debris, and necrotic tissue, by manual and electrical means with use of a nail nipper and/or dremel, to more viable healthy nail plate or bed tissue 6-10. Silver nitrate used for any petechial bleeding as necessary. Patient chooses, no pharmaceutical tx (06439).?Keratoma Treatment:?Parring or Cutting of Benign Hyperkeratotic Lesion(s)?95016 ( >4 Lesions) - The Benign hyperkeratotic lesions, as described above were pared, and/or cut utilizing a sterile #15 blade, tissue nippers, and/or dremel.? * Procedure Codes:?39817 DEBRI DE NAIL, 6 OR MORE, Modifiers: XS 92531 TRIM SKIN LESIONS, OVER 4, Modifiers: XS * Follow Up:?3 Months * Images: * Sign off status: Completed true * Provider:?Facundo Centeno DPM Date:? 024 Generated for Deni escobar/Wing/eTransmitting on:?12/10/2024 10:22 AM EST History and Physical Notes * HPI (History of Present Illness) Category Sub-Category Detail Notes Category Not es Painful Nails Misc: recent PR 04/24/23 Pt States Last PCP Visit: Date:: 12/10/2023 Examination Category Sub-Category Detail Notes Category Not es Ingrown Nail INSPECTION: Reveals nail inc urvation, dull pain on palpation due to neuropathy, groove hypertrophy, Lateral nail border, T5 Neurological SENSORY: Neurological exa m demonstrates , reduced vibration sensation , 5.07 monofilament test performed at plantar aspects of 5 varied sites per foot shows sensation , reduced , B/L Dermatologic SKIN FINDINGS: Skin exam reveal s Keratotic lesion(s) located at, Medial plantar, TA, T5, Heel(s), B/L, Skin exam reveals Keratotic lesion(s) located at, Plantar, Midfoot, B/L Skin exam reveals Keratotic lesion(s) located at, SUB MTH (s), 2, 3, 4, B/L General Examination GENERAL APPEARANCE: alert, w ell hydrated, in no distress , good attention to hygiene FOOT EXAM: Lower Extremity Neurological Exa m performed:: Yes Visual exam of foot performed:: Yes Date: 12/11/2023 Sensory testing performed:: sensations d iminished Pedal pulse taking performed:: 1+ ORIENTED: person,place, and ti me Ophthalmology Referral DIABETES EYE EXAM Diabetic Retinopa thy Screening:: Yes Findings of Diabetic Eye Exam:: no retin opathy Vascular DP PULSES (B): 1/4, B/L PT PULSES (B): 1/4, B/L CAPILLARY FILL TIME: 3 secs. per digit, b/l EDEMA (C): 1/4, Right, 2/4, Lef t, Feet, Ankle(s), Leg(s) Nails NAILS are: Elongated, overg rown, dystrophic, lytic, greater than 3mm thick, discolored and friable with crumbly malodorous subungual debris, with dull to no pain on palpation due to neuropathy, 1-5 Left foot, T5, T6, T9
--- OUTSIDE RECORDS SUMMARY | 2024-12-10 10:22 | XMS_ITS | Patient Health Record ---
Author Organization [facility] [place]ina [place] Address [address] [place] [address] Care Team Providers Care Restaurant Crew Person Name Role Phone Luke Albright Primary Care Provider Shayna Chung Unavailable [phone] Facundo Centeno Unavailable [phone] Allergies No Known Allergies Reason For Referral No Information Medications Medication SIG (Take, Route, Frequency, Duration) Notes Start Date End Date Status Atorvastatin Calcium 10 MG Oral Once a day Active Metformin & Diet Manage Prod Not-Taking Fenofibrate 160 MG 1 tablet Oral Once a day Active Econazole Nitrate 1 % 1 application to affected area Externally Once a day for 30 days 09/12/2015 Not-Taking Glimepiride 4 MG Oral Once a day Active Tolnaftate 1 % Externally Twice a day 03/08/2014 Not-Taking hydroCHLOROthiazide Active Metoprolol Tartrate 100 MG Oral Not-Taking Insulin Cartridge 3ML Active Tolnaftate 1 % 1 application to affected area Externally Twice a day for 30 days Not-Taking Lisinopril Active Loratadine 10 mg Once a day Ac tive Metoprolol Succinate Active Extra Depth Diabetic Shoes with 3 Pair Custom heat-molded multi-density innersoles for 1 year Dx: 11/16/2020 Not-Taking Extra Depth Diabetic Shoes with 3 Pair Custom heat-molded multi-density innersoles for 1 year Dx: Active Simvastatin Active Ammonium Lactate 12 % 1 application Externally Twice a day for 30 days 11/16/2020 Active Extra-Depth Diabetic Shoes with 3 Pair Custom heat-molded multi-density innersoles . 1pair shoes/3sets inserts . . for 1 year Active amLODIPine Besylate Active Immunizations Vaccine Route Administration Date Status Comme nts COVID-19 Moderna Vaccine Unknown 11/01/2021 Administere d 1st 12/29/2020 2nd 01/26/2021 Influenza Unknown 07/10/2016 Administered Influenza Unknown 09/10/2017 Administered Influenza Unknown 09/29/2018 Administered Influenza Unknown 09/20/2019 Administered Influenza Unknown 09/20/2022 Administered Influenza Unknown 08/21/2023 Administered Pneumococcal Unknown 07/25/2015 Administered Social History Tobacco Use: Social History Observation [...] Are you an other tobacco user? No Problems Problem Type SNOMED Code ICD Code Onset Dates Problem Status W/U Status Risk Notes Problem Polyneuropathy due to type 2 diabetes mellitus (189097447) Type 2 diabetes mellitus with diabetic polyneuropathy (E11.42) Active confirmed Problem Acquired hammer toe of right foot (9904274108805579 ) Other hammer toe(s) (acquired), right foot (M20.41) Active confirmed Problem Acquired hammer toe of left foot (2120933405169800 ) Other hammer toe(s) (acquired), left foot (M20.42) Active confirmed Problem Polyneuropathy due to diabetes mellitus type I (208961559) Type 1 diabetes mellitus with diabetic polyneuropathy (E10.42) Active confirmed Vital Signs Blood pressure diastolic 79 mm Hg 09/16/2024 Height 5ft9in in 09/16/2024 Blood pressure systolic 123 mm Hg 09/16/2024 Weight 209 lbs 09/16/2024 BMI 30.86 kg/m2 09/16/2024 Procedures Procedure Date Ordered Date Performed Result Body Sit e 17977-MTUYBTH NAIL, 6 OR MORE 09/16/2024 N/A 56085-TDSE SKIN LESIONS, OVER 4 09/16/2024 N/A Encounters Encounter Location Date Provider Diagnosis [facility] [address] [place] [address] 12/11/2023 Facundo Centeno Tinea unguium B35.1 ; Ingrowing nail L60.0 ; Type 1 diabetes mellitus with diabetic polyneuropathy E10.42 ; Pain in right toe(s) M79.674 ; Pain in left toe(s) M79.675 ; Xerosis cutis L85.3 ; Tinea pedis B35.3 ; Other hammer toe(s) (acquired), left foot M20.42 and Other hammer toe(s) (acquired), right foot M20.[address] [address] 03/12/2024 Facundo Centeno Tinea unguium B35.1 ; Ingrowing nail L60.0 ; Type 1 diabetes mellitus with diabetic polyneuropathy E10.42 ; Pain in right toe(s) M79.674 ; Pain in left toe(s) M79.675 ; Xerosis cutis L85.3 ; Tinea pedis B35.3 ; Other hammer toe(s) (acquired), left foot M20.42 and Other hammer toe(s) (acquired), right foot M20.[address] [address] 06/11/2024 Facundo Centeno Tinea unguium B35.1 ; Ingrowing nail L60.0 ; Type 1 diabetes mellitus with diabetic polyneuropathy E10.42 ; Pain in right toe(s) M79.674 ; Pain in left toe(s) M79.675 ; Xerosis cutis L85.3 ; Tinea pedis B35.3 ; Other hammer toe(s) (acquired), left foot M20.42 and Other hammer toe(s) (acquired), right foot M20.[address] [address] 09/16/2024 Shayna Patel Type 2 diabetes mellitus with diabetic polyneuropathy E11.42 and Tinea unguium B35.1 Assessments Encounter Date Diagnosis (ICD Code) Assessment Notes Treatment Notes Treatment Clinical Notes Section Notes 12/11/2023 Tinea unguium (ICD-10 - B35.1) 12/11/2023 Ingrowing nail (ICD-10 - L60.0) 03/12/2024 Tinea unguium (ICD-10 - B35.1) 03/12/2024 Ingrowing nail (ICD-10 - L60.0) 06/11/2024 Tinea unguium (ICD-10 - B35.1) 09/16/2024 Type 2 diabetes mellitus with diabetic polyneuropathy (ICD-10 - E11.42) 09/16/2024 Tinea unguium (ICD-10 - B35.1) 06/11/2024 Ingrowing nail (ICD-10 - L60.0) 03/12/2024 Type 1 diabetes mellitus with diabetic polyneuropathy (ICD-10 - E10.42) 12/11/2023 Type 1 diabetes mellitus with diabetic polyneuropathy (ICD-10 - E10.42) 12/11/2023 Pain in right toe(s) (ICD-10 - M79.674) 03/12/2024 Pain in right toe(s) (ICD-10 - M79.674) 06/11/2024 Type 1 diabetes mellitus with diabetic polyneuropathy (ICD-10 - E10.42) 06/11/2024 Pain in right toe(s) (ICD-10 - M79.674) 03/12/2024 Pain in left toe(s) (ICD-10 - M79.675) 12/11/2023 Pain in left toe(s) (ICD-10 - M79.675) 12/11/2023 Xerosis cutis (ICD-10 - L85.3) 03/12/2024 Xerosis cutis (ICD-10 - L85.3) 06/11/2024 Pain in left toe(s) (ICD-10 - M79.675) 06/11/2024 Xerosis cutis (ICD-10 - L85.3) 03/12/2024 Tinea pedis (ICD-10 - B35.3) 12/11/2023 Tinea pedis (ICD-10 - B35.3) 12/11/2023 Other hammer toe(s) (acquired), left foot (ICD-10 - M20.42) 03/12/2024 Other hammer toe(s) (acquired), left foot (ICD-10 - M20.42) 06/11/2024 Tinea pedis (ICD-10 - B35.3) 06/11/2024 Other hammer toe(s) (acquired), left foot (ICD-10 - M20.42) 03/12/2024 Other hammer toe(s) (acquired), right foot (ICD-10 - M20.41) 12/11/2023 Other hammer toe(s) (acquired), right foot (ICD-10 - M20.41) 06/11/2024 Other hammer toe(s) (acquired), right foot (ICD-10 - M20.41) Plan Of Treatment Pending Test Test Name Order Date 30702-AIJRVRZ NAIL, 6 OR MORE 08/06/2011 30204-DEPJVDR NAIL, 6 OR MORE 12/03/2011 34353-JABRGIH NAIL, 6 OR MORE 02/18/2012 09077-SUXPYAK NAIL, 6 OR MORE 05/19/2012 05779-TEISFLT NAIL, 6 OR MORE 08/04/2012 63778-FETTCIK NAIL, 6 OR MORE 11/03/2012 64055-OUYOQHA NAIL, 6 OR MORE 02/02/2013 73718-JHIKYUX NAIL, 6 OR MORE 05/18/2013 33228-GDGZNCK NAIL, 6 OR MORE 09/02/2013 44170-TFJLBXP NAIL, 6 OR MORE 12/03/2013 83117-WKWEDEE NAIL, 6 OR MORE 03/08/2014 27196-ABQSYGE NAIL, 6 OR MORE 06/09/2014 03488-IQIAAUY NAIL, 6 OR MORE 09/13/2014 47979-WMDHLXX NAIL, 6 OR MORE 12/13/2014 58561-LQXQSVC NAIL, 6 OR MORE 03/16/2015 78967-LZPTPBH NAIL, 6 OR MORE 06/16/2015 35664-GIAOZDW NAIL, 6 OR MORE 09/12/2015 34505-ONEZKEG NAIL, 6 OR MORE 12/12/2015 95470-IYYXHHI NAIL, 6 OR MORE 03/15/2016 73836-SSCIFEG NAIL, 6 OR MORE 06/13/2016 15608-JUAKLGI NAIL, 6 OR MORE 09/12/2016 52563-MKRLSIR NAIL, 6 OR MORE 12/19/2016 13940-ZPLCJNH NAIL, 6 OR MORE 03/20/2017 42959-MSESEBP NAIL, 6 OR MORE 06/20/2017 09887-ORFKBTT NAIL, 6 OR MORE 09/18/2017 77783-YLZMDNW NAIL, 6 OR MORE 12/23/2017 46732-QCCVWKQ NAIL, 6 OR MORE 03/24/2018 35336-IULXEBO NAIL, 6 OR MORE 06/25/2018 29423-DVPCXWU NAIL, 6 OR MORE 09/24/2018 87568-RDWDOZG NAIL, 6 OR MORE 09/16/2024 91623-Obmtphcs Plate 06/09/2014 65051-Hlnfksiu Plate 12/13/2014 37565-Cctiixll Plate 11/03/2012 44251-Jnweheof Plate 08/04/2012 48297-Hkzsjerl Plate 02/18/2012 23602-Bepwninw Plate 05/19/2012 59919-Gleukfad Plate 12/03/2011 66595-Tubdtepq Plate 08/06/2011 78584- Debride <25 sq cm 12/13/2014 21278-VCKC SKIN LESIONS, OVER 4 09/13/20 14 07540-GFSU SKIN LESIONS, OVER 4 06/09/20 14 78875-DFJH SKIN LESIONS, OVER 4 03/08/20 14 35233-SGHP SKIN LESIONS, OVER 4 12/03/19 14 06275-CIEO SKIN LESIONS, OVER 4 09/02/20 13 17065-VSHP SKIN LESIONS, OVER 4 05/18/20 13 73561-EJKU SKIN LESIONS, OVER 4 02/03/20 13 92261-CHKW SKIN LESIONS, OVER 4 11/03/19 13 49678-WILJ SKIN LESIONS, OVER 4 12/13/19 15 98949-CHNS SKIN LESIONS, OVER 4 03/16/20 15 95573-ZCKH SKIN LESIONS, OVER 4 09/12/20 15 62910-ISLZ SKIN LESIONS, OVER 4 06/16/20 15 64912-GTOF SKIN LESIONS, OVER 4 09/12/20 16 49310-PFWX SKIN LESIONS, OVER 4 06/13/20 16 81908-UMZF SKIN LESIONS, OVER 4 03/15/20 16 66358-YNVP SKIN LESIONS, OVER 4 12/12/19 16 61674-LYLW SKIN LESIONS, OVER 4 09/24/20 18 47639-IHOW SKIN LESIONS, OVER 4 06/25/20 18 96903-QHNJ SKIN LESIONS, OVER 4 03/24/20 18 54658-AROI SKIN LESIONS, OVER 4 12/24/19 18 09209-OKCW SKIN LESIONS, OVER 4 09/18/20 17 25915-TREC SKIN LESIONS, OVER 4 12/20/19 17 52215-XAOD SKIN LESIONS, OVER 4 09/16/20 24 72333-ZEJM SKIN LESIONS, OVER 4 12/25/19 19 58579-XQLS SKIN LESIONS, OVER 4 03/25/20 19 86842-ENYN SKIN LESIONS, OVER 4 07/02/20 60289-MDMH SKIN LESIONS, OVER 4 10/05/20 48170-EIFA SKIN LESIONS, OVER 4 12/30/19 82938-NBAC SKIN LESIONS, OVER 4 04/04/20 43369-SAIT SKIN LESIONS, OVER 4 07/11/20 15258-NSCW SKIN LESIONS, OVER 4 11/16/19 21 47407-ZISI SKIN LESIONS, OVER 4 02/09/20 21 51550-RTSI SKIN LESIONS, OVER 4 05/11/20 52393-DOJA SKIN LESIONS, OVER 4 08/14/20 67811-OGPA SKIN LESIONS, OVER 4 11/15/19 22 67202-WDQX SKIN LESIONS, 2 TO 4 03/20/20 17 34828-YAAH SKIN LESIONS, 2 TO 4 06/20/20 17 25242-NEYZ SKIN LESIONS, 2 TO 4 11/03/19 13 56893-FXRA SKIN LESIONS, 2 TO 4 08/04/20 12 21898-IXTB SKIN LESIONS, 2 TO 4 08/06/20 11 42902-YBDO SKIN LESIONS, 2 TO 4 12/03/19 12 04212-JDWC SKIN LESIONS, 2 TO 4 05/19/20 12 25143-XJBD SKIN LESIONS, 2 TO 4 02/18/20 12 21855-QJTHUNRI OF HEMATOMA/FLUID 018 Next Appt Details Provider Name:Shayna Schneider allyson, 01/28/2025 03:30:00 PM, [address] [facility], [place], [address], Insurance Providers Payer Name Payer Address Payer Phone Subscriber Number Group Number Insured Name Patient Relationship to Insured Coverage Start Date Coverage End Date Medicare National Govt [facility] [address] [place] [address] [id number] Divya De Los Santos Self - patient is the insured [employer] [address] [place] [address] [id number] Divya De Los Santos Self - patient is the insured Medical (General) History Medical History History ICD Code mumps measles chicken pox type II diabetes Surgical History Surgery Date(Month/Year) cholecystectomy 1986 rotator cuff tear repair 2008 triple bypass surgery 2000 colonoscopy 04/04/2012 hernia repair 10/30/2013 Hospitalization History Reason Date(Month/Year) [facility] [place] Stomach [place] 01/2023 [facility] -constipation for 4 days given Meds 04/23/22 pt went to [facility] for dislocated shoulde r 07/07/15 Patient went to [facility] for stitches in h ead. 08/2014 Went to [facility] for sprained right an kle. 03/2013 Patient went to [facility] for gout. 08/01
--- OUTSIDE RECORDS SUMMARY | 2024-12-10 10:22 | XMS_ITS ---
Author Organization [facility] Address [address] [place] [address] Care Team Providers Care Tacker Elastic Band Name Role Phone Po Luke CRUZ Primary Care Provider Isaiah Zaragoza [phone] Encounters Encounter Location Date Provider Diagnosis [facility] [address] [place] [address] 11/05/2023 Isaiah Benito PLAN OF TREATMENT No Information
--- OUTSIDE RECORDS SUMMARY | 2024-12-10 10:23 | XMS_ITS ---
Author Organization [facility] Address [address] [place] [address] Care Team Providers Care Flower Machine Operator Name Role Phone Luke Albright Primary Care Provider Shayna Chung Unavailable [phone] Facundo Centeno Unavailable [phone] Allergies No Known Allergies REASON FOR VISIT Painful nail(s) aggrevated by shoes and causing difficulty standing/walking. Medications Medication SIG (Take, Route, Frequency, Duration) Notes Start Date End Date Status Metoprolol Tartrate 100 MG Oral Not-Taking Tolnaftate 1 % Externally Twice a day 03/08/2014 Not-Taking Econazole Nitrate 1 % 1 application to affected area Externally Once a day for 30 days 09/12/2015 Not-Taking Metformin & Diet Manage Prod Not-Taking Extra Depth Diabetic Shoes with 3 Pair Custom heat-molded multi-density innersoles for 1 year Dx: Active Metoprolol Succinate Active Loratadine 10 mg Once a day Ac tive Extra-Depth Diabetic Shoes with 3 Pair Custom heat-molded multi-density innersoles . 1pair shoes/3sets inserts . . for 1 year Active Simvastatin Active Extra Depth Diabetic Shoes with 3 Pair Custom heat-molded multi-density innersoles for 1 year Dx: 11/16/2020 Not-Taking hydroCHLOROthiazide Active Glimepiride 4 MG Oral Once a day Active Fenofibrate 160 MG 1 tablet Oral Once a day Active Lisinopril Active Insulin Cartridge 3ML Active Atorvastatin Calcium 10 MG Oral Once a day Active Tolnaftate 1 % 1 application to affected area Externally Twice a day for 30 days Not-Taking amLODIPine Besylate Active Ammonium Lactate 12 % 1 application Externally Twice a day for 30 days 11/16/2020 Active Social History Tobacco Use: Social History [...] user? No Vital Signs Height 5ft9in in 06/11/2024 Weight 209 lbs 06/11/2024 BMI 30.86 kg/m2 06/11/2024 Blood pressure systolic 123 mm Hg 06/11/20 24 Blood pressure diastolic 79 mm Hg 024 Encounters Encounter Location Date Provider Diagnosis [facility] [address] [place] [address] 06/11/2024 Facundo Centeno Tinea unguium B35.1 ; [...] Treatment Notes Treatment Clinical Notes Section Notes 06/11/2024 Tinea unguium (ICD-10 - B35.1) 06/11/2024 Ingrowing nail (ICD-10 - L60.0) 06/11/2024 Type 1 diabetes mellitus with diabetic polyneuropathy (ICD-10 - E10.42) 06/11/2024 Pain in right toe(s) (ICD-10 - M79.674) 06/11/2024 Pain in left toe(s) (ICD-10 - M79.675) 06/11/2024 Xerosis cutis (ICD-10 - L85.3) 06/11/2024 Tinea pedis (ICD-10 - B35.3) 06/11/2024 Other hammer toe(s) (acquired), left foot (ICD-10 - M20.42) 06/11/2024 Other hammer toe(s) (acquired), right foot (ICD-10 - M20.41) Plan Of Treatment Medication Medication Name Sig Start Date Stop Date Notes Extra Depth Diabetic Shoes w ith 3 Pair Custom heat-molded multi-density innersoles for 1 year Dx: Next Appt Details Follow Up: 3 Months, Reason: Provider Name:Shayna Baileyanders valadez, 01/28/2025 03:30:00 PM, [address] [place], [address], Procedure Notes * Category Sub-Category Detail Notes [...] as necessary. Patient chooses, no pharmaceutical tx (66607) Keratoma Treatment Parring or Cutting o f Benign Hyperkeratotic Lesion(s) 93890 ( >4 Lesions) - The Benign hyperkeratotic lesions, as described above were pared, and/or cut utilizing a sterile #15 blade, tissue nippers, and/or dremel Progress Notes * Divya NAILS SrDOB: (69 yo M)Acc No.[id number]:06/11/2024 Progress Note Patient:?Divya Nails Provider:?Facundo Centeno DPM :1955???Age:69 Y???Sex:Male Dax e:06/11/2024 Address:[address] [place], [place] [address] Pcp:Luke Albright Subjective: * Chief Complaints: * ??? Painful nail(s) aggrevat ed by shoes and causing difficulty standing/walking. * HPI: ???Painful Nails:?Pt States Last PCP Visit:?Date:?03/23/2024 ?Misc:?recent SD 04/24/23.? * ROS:?General/Constitutional:?Nausea?denies.?Vomiting?denies.?Hunger Thirst?denies.?Loss appetite?denies.?Chills?denies.?Fatigue?denies.?Fever?denies.?Night Sweats?denies.?Unexplained weight [...] * Hospitalization/Major Diagno stic Procedure:?Patient went to [facility] for gout. 11/30/11Went to [facility] for sprained right ankle. 03/2013Patient went to [facility] for stitches in head. 08/2014pt went to [facility] for dislocated shoulder 07/07/15[facility] -constipation for 4 days given Meds 04/23/22[facility] - Stomach Issues 01/2023 * Family History:?Mother: [...] wood,snow plow. ?Marital status: . 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 * Medications:?TakingExtra Dep th Diabetic Shoes with 3 Pair Custom heat-molded multi-density innersoles for 1 year Dx:Ammonium Lactate 12 % Cream 1 application Externally [...] innersoles . . 1pair shoes/3sets inserts . .Not-Taking/PRNExtra Depth Diabetic Shoes with 3 Pair Custom heat-molded multi-density innersoles for 1 year Dx:Metformin & Diet Manage Prod Econazole Nitrate 1 % Cream 1 application to affected area Externally Once a dayTolnaftate 1 % Cream Externally Twice a dayMetoprolol Tartrate 100 MG Tablet Oral Tolnaftate 1 % Cream 1 application to affected area Externally Twice a dayMedication List reviewed and reconciled with the patientNot- Taking/PRN Extra Depth Diabetic Shoes with 3 Pair Custom heat-molded multi-density innersoles for 1 year Dx:Not-Taking/PRN Metformin & Diet Manage Prod Not-Taking/PRN Econazole Nitrate 1 % Cream 1 application to affected area Externally Once a dayNot- Taking/PRN Tolnaftate 1 % Cream Externally Twice a dayNot-Taking/PRN Metoprolol Tartrate 100 MG Tablet Oral Not-Taking/PRN Tolnaftate 1 % Cream 1 application to affected area Externally Twice a dayMedication List reviewed and reconciled with the patient * Allergies:?N.K.D.A.yes[Aller gies Verified] Objective: * Vitals:?Ht: 5ft9in, Wt:209, BMI:30.86, Shoe size:10.5, BP:123/79 mm Hg, BS:104. * Examination: ???Neurological: ?SENSORY:?Neurological exam demonstrates , reduced vibration sensation , 5.07 monofilament test performed at plantar aspects of 5 varied sites per foot shows sensation , reduced , B/L.?Vascular: ?DP PULSES:?10/24, B/L.?PT PULSES:?10/24, B/L.?CAPILLARY FILL TIME:?3 secs. per digit, b/l.?EDEMA:? [...] as necessary. Patient chooses, no pharmaceutical tx (56260).?Keratoma Treatment:?Parring or Cutting of Benign Hyperkeratotic Lesion(s)?31926 ( >4 Lesions) - The Benign hyperkeratotic lesions, as described above were pared, and/or cut utilizing a sterile #15 blade, tissue nippers, and/or dremel.? * Procedure Codes:?87143 DEBRI DE NAIL, 6 OR MORE, Modifiers: XS 99854 TRIM SKIN LESIONS, OVER 4, Modifiers: XS * Follow Up:?3 Months * Images: * Sign off status: Completed true * Provider:?Facundo Centeno DPM Date:? 024 Generated for Deni escobar/Wing/eTransmitting on:?12/10/2024 10:22 AM EST History and Physical Notes * HPI (History of Present Illness) Category Sub-Category Detail Notes Category Not es Painful Nails Misc: recent SD 04/24/23 Pt States Last PCP Visit: Date:: 03/23/2024 Examination Category Sub-Category Detail Notes Category Not [...]
--- OUTSIDE RECORDS SUMMARY | 2024-12-10 10:23 | XMS_ITS ---
Author Organization [facility] Address [address] [place] [address] Care Team Providers Care Buffing And Polishing Wheel Repairer Name Role Phone Luke Albright Primary Care Provider Shayna Chung Unavailable [phone] Allergies No Known Allergies REASON FOR VISIT At Risk Footcare Medications Medication SIG (Take, Route, Frequency, Duration) Notes Start Date End Date Status Econazole Nitrate 1 % 1 application to affected area Externally Once a day for 30 days 09/12/2015 Not-Taking Tolnaftate 1 % Externally Twice a day 03/08/2014 Not-Taking Metoprolol Tartrate 100 MG Oral Not-Taking Tolnaftate 1 % 1 application to affected area Externally Twice a day for 30 days Not-Taking Extra Depth Diabetic Shoes with 3 Pair Custom heat-molded multi-density innersoles for 1 year Dx: Active Metformin & Diet Manage Prod Not-Taking Metoprolol Succinate Active Simvastatin Active Extra-Depth Diabetic Shoes with 3 Pair Custom heat-molded multi-density innersoles . 1pair shoes/3sets inserts . . for 1 year Active Extra Depth Diabetic Shoes with 3 Pair Custom heat-molded multi-density innersoles for 1 year Dx: 11/16/2020 Not-Taking Glimepiride 4 MG Oral Once a day Active hydroCHLOROthiazide Active Insulin Cartridge 3ML Active Lisinopril Active Loratadine 10 mg Once a day Ac tive Atorvastatin Calcium 10 MG Oral Once a day Active Fenofibrate 160 MG 1 tablet Oral Once a day Active Ammonium Lactate 12 % 1 application Externally Twice a day for 30 days 11/16/2020 Active amLODIPine Besylate Active Social History Tobacco [...] Polyneuropathy due to type 2 diabetes mellitus (546692271) Type 2 diabetes mellitus with diabetic polyneuropathy (E11.42) Active confirmed Vital Signs Height 5ft9in in 09/16/2024 Weight 209 lbs 09/16/2024 BMI 30.86 kg/m2 09/16/2024 Blood pressure systolic 123 mm Hg 09/16/20 Blood pressure diastolic 79 mm Hg 024 Procedures Procedure Date Ordered Date Performed Result Body Sit e 25451-LVFFKQC NAIL, 6 OR MORE 09/16/2024 N/A 58792-OEWI SKIN LESIONS, OVER 4 09/16/2024 N/A Encounters Encounter Location Date Provider Diagnosis [facility] [place] [address] [place] [address] 09/16/2024 Shayna Patel Type 2 diabetes mellitus with diabetic polyneuropathy E11.42 and Tinea unguium B35.1 Assessments Encounter Date Diagnosis (ICD Code) Assessment Notes Treatment Notes Treatment Clinical Notes Section Notes 09/16/2024 Type 2 diabetes mellitus with diabetic polyneuropathy (ICD-10 - E11.42) 09/16/2024 Tinea unguium (ICD-10 - B35.1) Plan Of Treatment Pending Test Test Name Order Date 33973-KPBXYHL NAIL, 6 OR MORE 09/16/2024 01213-WYAC SKIN LESIONS, OVER 4 09/16/20 24 Next Appt Details Follow Up: 3 Months, Reason: Provider Name:Shayna valadez, 01/28/2025 03:30:00 PM, [address] [place] [address], [phone], Procedure Notes * Category Sub-Category Detail Notes Debride Nail 6-10 Nail debridement Performance o f this nail treatment by a nonprofessional would put this patients foot and overall health at risk. Therefore, debridement to affected nail(s), as described in exam, was performed extensively to reduce/remove overall nail length, girth, thickness, subungual debris, and necrotic tissue, by manual and/or electrical means through the use of a nail nipper and/or dremel-type thread grinder tool, to a more viable healthy nail plate or bed tissue 6-10 nails in total. Silver nitrate was used for any petechial bleeding as necessary. Definitive antifungal treatment options, both pharmaceutical and surgical, have been reviewed and discussed with the patient. The patient solely prefers the use of intermittent/as needed professional debridement services for their nail condition and understands the need for additional periodic treatments to maintain effectiveness in symptomatic relief - 43265 Keratoma Treatment Parring or Cutting o f Benign Hyperkeratotic Lesion(s) (-57) More than 4 Lesions - The Benign hyperkeratotic lesions, ( __ ) in total, locations as stated and described in exam, were pared, and/or cut utilizing a sterile 15 blade, tissue nippers, and/or power dremel instrumentation - 73622 Progress Notes * Divya NAILS SrDOB: (69 yo M)Acc No.[id number]:09/16/2024 Progress Note Patient:?Divya NAILS Sr Provider:?Shayna Patel DPM :1955???Age:69 Y???Sex:Male Dax e:09/16/2024 Address:[address] [place], [place] [id number] Pcp:Luke Albright Subjective: * Chief Complaints: * ???At Risk Footcare * HPI: ???At Risk footcare:?Pt States Last PCP Visit:?Date?03/23/2024 * ROS:?General/Constitutional:?Nausea?denies.?Vomiting?denies.?Hunger Thirst?denies.?Loss appetite?denies.?Chills?denies.?Fatigue?denies.?Fever?denies.?Night Sweats?denies.?Unexplained weight loss?denies.?Ophthalmologic:?Blurred [...] 1987rotator cuff tear repair 2009triple bypass surgery 2001colonoscopy 04/04/2012hernia repair 10/30/2013 * Hospitalization/Major Diagno stic Procedure:?Patient went to [place] [facility] for gout. 11/30/11Went to [place] [facility] for sprained right ankle. 03/2013Patient went to [facility] [place] in head. 08/2014pt went to [facility] for dislocated shoulder 07/07/15[facility] [place]const[place] 4 days given Meds 04/23/22[facility] [place] Stom[place] Issues 01/2023 * Family History:?Mother: [...] wood,snow plow. ?Marital status: . 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 * Medications:?TakingExtra Dep th Diabetic Shoes with 3 Pair Custom heat-molded multi-density innersoles for 1 year Dx: Ammonium Lactate 12 % Cream 1 application Externally Twice a day amLODIPine Besylate Atorvastatin Calcium 10 MG Tablet Oral Once a day Fenofibrate 160 MG Tablet 1 tablet Oral Once a day Glimepiride 4 MG Tablet Oral Once a day hydroCHLOROthiazide Insulin Cartridge 3ML Lisinopril Loratadine 10 mg Once a day Metoprolol Succinate Simvastatin Extra-Depth Diabetic Shoes with 3 Pair Custom heat-molded multi-density innersoles . . 1pair shoes/3sets inserts . . Taking Extra Depth Diabetic Shoes with 3 Pair Custom heat-molded multi-density innersoles for 1 year Dx: Taking Ammonium Lactate 12 % Cream 1 application Externally Twice a day Taking amLODIPine Besylate Taking Atorvastatin Calcium 10 MG Tablet Oral Once a day Taking Fenofibrate 160 MG Tablet 1 tablet Oral Once a day Taking Glimepiride 4 MG Tablet Oral Once a day Taking hydroCHLOROthiazide Taking Insulin Cartridge 3ML Taking Lisinopril Taking Loratadine 10 mg Once a day Taking Metoprolol Succinate Taking Simvastatin Taking Extra-Depth Diabetic Shoes with 3 Pair Custom heat-molded multi-density innersoles . . 1pair shoes/3sets inserts . . Not-Taking/PRNExtra Depth Diabetic Shoes with 3 Pair Custom heat-molded multi-density innersoles for 1 year Dx: Metformin & Diet Manage Prod Econazole Nitrate 1 % Cream 1 application to affected area Externally Once a day Tolnaftate 1 % Cream Externally Twice a day Metoprolol Tartrate 100 MG Tablet Oral Tolnaftate 1 % Cream 1 application to affected area Externally Twice a day Medication List reviewed and reconciled with the patientNot-Taking/PRN Extra Depth Diabetic Shoes with 3 Pair Custom heat-molded multi-density innersoles for 1 year Dx: Not-Taking/PRN Metformin & Diet Manage Prod Not-Taking/PRN Econazole Nitrate 1 % Cream 1 application to affected area Externally Once a day Not-Taking/PRN Tolnaftate 1 % Cream Externally Twice a day Not- Taking/PRN Metoprolol Tartrate 100 MG Tablet Oral Not-Taking/PRN Tolnaftate 1 % Cream 1 application to affected area Externally Twice a day Medication List reviewed and reconciled with the patient * Allergies:?N.K.D.A.yes[Aller gies Verified] Objective: * Vitals:?Ht:5ft9in, Wt:209, B AL:30.86, Shoe size:10.5, BP:123/79mm Hg, BS:119, Ht-cm: 175.26 cm, Wt-k.8 kg. * Examination: ???General Examination: ?GENERAL APPEARANCE:?Reveals a pleasant, alert, well nourished, well- developed, well hydrated individual, who demonstrates proper attention to hygiene/body habitus, and is in no acute distress, Pt serves as own historian for office visit today.?ORIENTED:?person, place, and time.?CQM Exceptions:: ?Hemoglobin A1c not performed?Neurological: ?SENSORY:? Neurological exam demonstrates, reduced light touch sensation, reduced sharp/dull pin prick discrimination , B/L, 5.07 monofilament test performed at plantar aspects of 5 varied sites per foot shows sensation, reduced , B/L.?Nails: ?NAILS are:?Elongated, overgrown, dystrophic, lytic, greater than 3mm thick, discolored and friable with crumbly malodorous subungual debris, 1-5 B/L.?Dermatologic: ?SKIN FINDINGS:?Skin exam reveals Keratotic lesion(s) located at, Plantar, Midfoot, B/L , SUB MTH (s), 2, 3, 4, B/L .?Vascular: ?DP PULSES(B):?1/4, B/L.?PT PULSES(B):?1/4, B/L.?CAPILLARY FILL TIME:?3 secs. per digit, b/l.?EDEMA(C):? 1/4, Right, 2/4, Left, Feet, Ankle(s), Leg(s).?Orthopedic: ?MUSCLE STRENGTH:?5/5 all groups in a symmetrical fashion, B/L.?Ophthalmology Referral: ?DIABETIC RETINOPATHY? Assessment: * Assessment: 1.?Type 2 diabetes mellitus with diabetic polyneuropathy - E11.42 (Primary)???2.?Tinea unguium - B35.1??? Plan: * Treatment: * Procedures:?Debride Nail 6-10:?Nail debridement?Performance of this nail treatment by a nonprofessional would put this patients foot and overall health at risk. Therefore, debridement to affected nail(s), as described in exam, was performed extensively to reduce/remove overall nail length, girth, thickness, subungual debris, and necrotic tissue, by manual and/or electrical means through the use of a nail nipper and/or dremel-type thread grinder tool, to a more viable healthy nail plate or bed tissue 6-10 nails in total. Silver nitrate was used for any petechial bleeding as necessary. Definitive antifungal treatment options, both pharmaceutical and surgical, have been reviewed and discussed with the patient. The patient solely prefers the use of intermittent/as needed professional debridement services for their nail condition and understands the need for additional periodic treatments to maintain effectiveness in symptomatic relief - 98768.?Keratoma Treatment:?Parring or Cutting of Benign Hyperkeratotic Lesion(s)?(-57) More than 4 Lesions - The Benign hyperkeratotic lesions, ( __ ) in total, locations as stated and described in exam, were pared, and/or cut utilizing a sterile 15 blade, tissue nippers, and/or power dremel instrumentation - 28850.? * Procedure Codes:?43040 DEBRI DE NAIL, 6 OR MORE, Modifiers: XS 34141 TRIM SKIN LESIONS, OVER 4, Modifiers: XS * Follow Up:?3 Months * Images: * Sign off status: Completed true * Provider:?Shayna Patel DPM Date:?1 11/16/2023 Generated for Deni escobar/Wing/eTransmitting on:?12/10/2024 10:23 AM EST History and Physical Notes * HPI (History of Present Illness) Category Sub-Category Detail Notes Category Not es At Risk footcare Pt States Last PCP Visit: Date: 4 Examination Category Sub-Category Detail Notes Category Not es Neurological SENSORY: Neurological exa m demonstrates, reduced light touch sensation, reduced sharp/dull pin prick discrimination , B/L, 5.07 monofilament test performed at plantar aspects of 5 varied sites per foot shows sensation, reduced , B/L Dermatologic SKIN FINDINGS: Skin exam reveal s Keratotic lesion(s) located at, Plantar, Midfoot, B/L , SUB MTH (s), 2, 3, 4, B/L Orthopedic MUSCLE STRENGTH: 5/5 all groups in a symmetrical fashion, B/L General Examination GENERAL APPEARANCE: Reveals a pleasant, alert, well nourished, well-developed, well hydrated individual, who demonstrates proper attention to hygiene/body habitus, and is in no acute distress, Pt serves as own historian for office visit today ORIENTED: person, place, and t [place] Ophthalmology Referral DIABETIC RETINOPATHY Macular or Fun dus exam:: No Provided communication to Re ferring Provider on the severity of Retinopathy and Macular Edema?: No Vascular DP PULSES (B): 1/4, B/L PT PULSES (B): 1/4, B/L CAPILLARY FILL TIME: 3 secs. per digit, b/l EDEMA (C): 1/4, Right, 2/4, Lef t, Feet, Ankle(s), Leg(s) Nails NAILS are: Elongated, overg rown, dystrophic, lytic, greater than 3mm thick, discolored and friable with crumbly malodorous subungual debris, 1-5 B/L CQM Exceptions: Hemoglobin A1c not performed Reason:: No r gab specified
--- OUTSIDE RECORDS SUMMARY | 2024-12-10 10:23 | XMS_ITS ---
Author Organization [facility] Address [address] [place] [address] Care Team Providers Care Filament Tester Name Role Phone Po Luke CRUZ Primary Care Provider Isaiah Zaragoza [phone] REASON FOR VISIT acute gastric ulcer w/ hemorrage PROBLEMS Problem Type ICD Code Onset Dates Problem Status W/U Status Risk SNOMED Code Notes Problem Chronic gastritis (K29.50) Active confirmed Chronic gastritis (8337367) Encounters Encounter Location Date Provider Diagnosis [facility] [address] [place] [phone] 12/02/2023 Isaiah Benito Hiatal hernia K44. 9 and Chronic gastritis K29.50 ASSESSMENTS Encounter Date Diagnosis Assessment Notes Treatment Notes Treatment Clinical Notes 12/02/2023 Hiatal hernia (ICD-10 - K44.9) 12/02/2023 Chronic gastritis (ICD-10 - K29.50) PLAN OF TREATMENT No Information
--- OUTSIDE RECORDS SUMMARY | 2024-12-10 10:23 | XMS_ITS | Patient Health Record ---
Author Organization [facility] Address [address] [place] [address] Care Team Providers Care Document Preparation Specialist Name Role Phone Po Luke CRUZ Primary Care Provider Isaiah Zaragoza [phone] ALLERGIES Allergen (clinical drug ingredient) Drug/Non Drug Allergy documented on EMR Reaction Allergy Type Onset Date Status penicillin G Penicillin G Sodium Unknown Drug Allergy Active REASON FOR REFERRAL No Information MEDICATIONS Medication SIG (Take, Route, Frequency, Duration) Notes Start Date End Date Status Januvia 100 MG 1 tablet Orally Once a day Active amLODIPine Besylate 5 MG 1 tablet Orally Once a day Active Fenofibrate 160 MG 1 tablet with a meal Orally Once a day Active Metoprolol Tartrate 100mg 1 tablet with food Orally once a day Active Olmesartan Medoxomil 20 MG TAKE ONE TABL ET BY MOUTH EVERY DAY Oral for 90 Active hydroCHLOROthiazide 25 MG 1 tablet Orall y Once a day Active Omeprazole 40 MG Oral for 30 A ctive glipiZIDE ER 5 MG TAKE ONE TABLET BY MOUTH EVERY DAY Oral for 90 Active Loratadine 10mg 1 tablet Orally Once a day Active Ezetimibe 10 MG TAKE ONE TABLET BY MOUTH EVERY DAY Oral for 90 Active Prevalite 4 GM 1 packet Orally thre e x a day Active Glimepiride 4 MG 1 tablet with breakfast or the first main meal of the day Orally Once a day Active Benicar 20 MG 1 tablet Orally Once a day Active Trulicity 1.5 MG/0.5ML Subcutaneous for 90 Active Vitamin D 1000 UNIT 1 tablet Orally Once a day Active Carbidopa-Levodopa 25-100 MG Oral for 90 Active Mirtazapine 7.5 MG TAKE ONE TABLET BY MOUTH AT BEDTIME Oral for 90 Active Isosorbide Mononitrate ER 30 MG TAKE ONE TABLET BY MOUTH EVERY DAY Oral for 30 Active Sertraline HCl 25 MG TAKE ONE TABLET BY MOUTH EVERY DAY Oral for 30 Active Basaglar KwikPen Act jose Sucralfate 1 GM Oral for 30 Ac tive Insulin Aspart Activ e Rosuvastatin Calcium 40 MG 1 tablet Oral ly Once a day Active Clopidogrel Bisulfate 75 MG TAKE ONE TAB LET BY MOUTH EVERY DAY Oral for 30 Active hydrALAZINE HCl 10 MG Oral for 30 Active Farxiga 10 MG Oral for 30 Acti ve IMMUNIZATIONS Vaccine Route Administration Date Status Comme nts Flu vaccine no Preserv 3 and > Unknown 07/15/2015 Admin istered Influenza Unknown 09/20/2019 Administered Influenza Unknown 07/21/2021 Administered Influenza Unknown 08/21/2023 Administered SOCIAL HISTORY Sex Assigned At : Social History Observation Description Sex Assigned At Unknown PROBLEMS Problem Type ICD Code Onset Dates Problem Status W/U Status Risk SNOMED Code Notes Problem Encounter for screening for malignant neoplasm of colon (Z12.11) Active confirmed 443024155 Problem History of adenomatous polyp of colon (Z86.010) Active confirmed 325790129 Problem Diarrhea (R19.7) Active confirmed 43946 008 Problem Acute gastric ulcer with hemorrhage (K25.0) Active confirmed 99966759 Problem Irritable bowel syndrome with diarrhea (K58.0) Active confirmed 703289653 Problem Chronic gastritis (K29.50) Active confirmed Chronic gastrit is (3764359) Problem Diarrhea, unspecified type (R19.7) Active confirmed 84548294 Problem Diverticulosis of sigmoid colon (K57.30) Active confirmed Diverticulosis of sigmoid colon (932482432) Problem Incontinence of feces, unspecified fecal incontinence type (R15.9) Active confirmed 22609900 Problem Gastric ulcer (K25.9) Active confirmed Gastric ulcer (669892820) PLAN OF TREATMENT Pending Test Test Name Order Date CELIAC PANEL #10 07/26/2015 CELIAC PANEL #10 02/26/2012 ENDOMYSIAL IGA 02/26/2012 TRANSGLUTAMINASE AB IGA 02/26/2012 TRANSGLUTAMINASE AB IGG 02/26/2012 Future Test Test Name Order Date COLONOSCOPY 02/26/2012 COLONOSCOPY 07/03/2022 UPPER GI ENDOSCOPY 09/04/2023 Insurance Providers Payer Name Payer Address Payer Phone Subscriber Number Group Number Insured Name Patient Relationship to Insured Coverage Start Date Coverage End Date MEDICARE OF [place] [address] [place] [id number] [phone] [id number] SHANTI MCKINNON Self - patient is the insured [employer] ATT[employer] CLAIMS [address] [place] [address] [id number] SHANTI MCKINNON Self - patient is the insured MEDICAL (GENERAL) HISTORY Medical History History ICD Code CAD with CABG as below--no history of DE NIDDM Denies DE,CVA,Lung disease,renal disease HTN Hyperlipidemia Colonoscopy 02/2012--hyperpla stic polyp, moderate sigmoid diverticulosis, internal hemorrhoids---neg for adenomas, IBD, microscopic colitis. IBS with diarrhea--- negativ e laboratories for celiac disease--- colonoscopy as above Pneumonia 09/2019 congestive heart failure in April 2023 Parkinsons Franky Cardiac catheterization 04/2023 Colonoscopy 07/2022 with tubular adenoma s UGI bleed 01/2023 with multip le gastric ulcers on EGD with bx negative for H.pylori and malignancy Surgical History Surgery Date(Month/Year) CCY 1991 3-V CABG 1999 Right shoulder-rotator cuff--x 2
--- OUTSIDE RECORDS SUMMARY | 2024-12-10 10:23 | XMS_ITS ---
Author Organization [facility] Address [address] [place] [address] Care Team Providers Care Wool Puller Name Role Phone Po Luke CRUZ Primary Care Provider Isaiah Zaragoza [phone] REASON FOR VISIT Review his med instructions for the 12/02 colonoscopy Encounters Encounter Location Date Provider Diagnosis [facility] [address] [place] [address] 11/21/2023 Isaiah Benito PLAN OF TREATMENT No Information
== END 2024-12-10 10:32 | disposition home or self-care (01) ==
PROVIDERS: PCP Internal Medicine; Visit Provider Internal Medicine
DX: E11.65 Type 2 diabetes mellitus with hyperglycemia (principal); Z79.4 Long term (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; E66.9 Obesity, unspecified; Z68.32 Body mass index [BMI] 32.0-32.9, adult; I50.22 Chronic systolic (congestive) heart failure; G30.9 Alzheimer's disease, unspecified; F02.80 Dementia in other diseases classified elsewhere, unspecified severity, without behavioral disturbance, psychotic disturbance, mood disturbance, and anxiety; G20.A1 Parkinson's disease without dyskinesia, without mention of fluctuations; I25.10 Atherosclerotic heart disease of native coronary artery without angina pectoris; I10 Essential (primary) hypertension; N40.1 Benign prostatic hyperplasia with lower urinary tract symptoms; N13.8 Other obstructive and reflux uropathy; K25.9 Gastric ulcer, unspecified as acute or chronic, without hemorrhage or perforation

== ENCOUNTER → 2024-12-10 09:34 | Outpatient (BNVA) | payer MEDICARE, SELFPAY ==
[2023-09-19 08:02] VITALS: BP 140/52; BP 140/74; BMI 31.0
== END ==
PROVIDERS: PCP Internal Medicine; Visit Provider Internal Medicine
DX: E11.65 Type 2 diabetes mellitus with hyperglycemia (principal); E66.9 Obesity, unspecified; I25.10 Atherosclerotic heart disease of native coronary artery without angina pectoris; N40.1 Benign prostatic hyperplasia with lower urinary tract symptoms; N13.9 Obstructive and reflux uropathy, unspecified; K25.9 Gastric ulcer, unspecified as acute or chronic, without hemorrhage or perforation; I11.0 Hypertensive heart disease with heart failure; I50.22 Chronic systolic (congestive) heart failure; G30.9 Alzheimer's disease, unspecified; F02.80 Dementia in other diseases classified elsewhere, unspecified severity, without behavioral disturbance, psychotic disturbance, mood disturbance, and anxiety; G20.A1 Parkinson's disease without dyskinesia, without mention of fluctuations
CPT/HCPCS: 83036; 96127; 99212

== ENCOUNTER 2024-12-21 08:47 | Outpatient (AMB) | payer MEDICARE, SELFPAY ==
[2023-09-19 08:02] VITALS: BP 140/52; BP 140/74; BMI 31.0
[2024-12-21 08:50] VITALS: BP 146/60; PULSE 70; BMI 32.6
--- NOTE | 2024-12-21 08:50 | A.OFFVIS_ITS ---
Vital Signs 12/21/24 08:50 Height 5 ft 9 in Weight 220 lb 14.451 oz BMI 32.6 BP 146/60 H Blood Pressure Location Lt brachial Position Sitting Pulse 70 Pulse Source Pulse Oximeter Intake Visit Reasons: 6mth f/up Lapidary Apprentice Required: No Accompanied by: Spouse Allergies amoxicillin Allergy (Severe, Verified 12/10/24 09:43) Diarrhea olmesartan Allergy (Unknown, Verified 12/10/24 09:43) Diarrhea Medication List - Last Reconciled 12/21/24 by Kenny Clark MD acetaminophen 500 mg PO Q6H PRN amlodipine 5 mg PO DAILY aspirin 81 mg PO DAILY blood pressure monitor (Blood Pressure Kit) As directed blood sugar diagnostic (Flexcomuch Ultra Test strips) As directed blood-glucose meter (Flexcomuch Ultra2 Meter) As directed carbidopa-levodopa 25-100 mg 1 tab PO TID 90 days dapagliflozin propanediol (Farxiga) 10 mg PO DAILY diclofenac sodium 1% 4 grams topical QID dulaglutide (Trulicity) 1.5 mg (0.5 mL) subcut QWEEK ezetimibe (Zetia) 10 mg PO DAILY furosemide 40 mg PO DAILY glipizide ER 5 mg PO DAILY 30 days insulin glargine (Basaglar KwikPen U-100 Insulin) 23 units (0.23 mL) subcut DAILY isosorbide mononitrate ER 30 mg PO DAILY lancets (Modest IncTouch UltraSoft Lancets) Testing 4 times a day lancets (Modest IncTouch Delica Plus Lancet) As directed check the BS TID lidocaine 4% 1 patch topical DAILY PRN metoprolol succinate ER 200 mg PO DAILY mirtazapine 7.5 mg PO BEDTIME pen needle, diabetic (1st Tier Unifine Pentips) As directed inject insulin 4 times a day pen needle, diabetic (BD Ultra-Fine Micro Pen Needle) test 4 times per day rosuvastatin 40 mg PO BEDTIME sertraline 25 mg PO DAILY sucralfate 1 g PO QIDACHS 90 days HPI Comments Details: Divya returns for follow-up regarding coronary artery disease. In 2022, he was hospitalized for NSTEMI. Echocardiogram had cardiomyopathy with wall motion abnormalities. Then sent to [facility] for cardiac catheterization but no interventions performed. Since then, no new issues. He states he feels good. No angina or any other cardiac concerns. There is also history GI bleeding and endoscopy had then shown gastric ulcers. [facility] Medical History Chronic renal insufficiency Parkinson disease Alzheimer disease Leukocytosis Screening for prostate cancer Generalized anxiety disorder Diarrhea Anxiety and depression Type 2 diabetes mellitus with hyperglycemia Hypercholesterolemia GERD (gastroesophageal reflux disease) Vitamin D deficiency Obesity (BMI 30-39.9) Coronary artery disease Hypertension Humeral fracture Surgical History Hx of cardiac catheterization History of endoscopic gastrointestinal surgery History of colonoscopy History of coronary artery bypass graft History of umbilical hernia repair History of tonsillectomy History of repair of rotator cuff History of cholecystectomy Family History Father Lung cancer Mother Diabetes Hypertension Social History Household Members: Spouse Housing: House Do you presently have visiting nurse or other home services: No Alcohol intake: never Patient Tobacco Use Status: Never used Tobacco e-Cigarette/Vaping Use: Never Used Second Hand Smoke Exposure: No Advance Directives Date on File: 03/07/22 service: No Current occupational status: retired Cognitive needs: No Hearing needs: Yes Vision needs: Yes (glasses) Review of Systems Const Denies chills, Denies fatigue, Denies fever(s), Denies weight gain and Denies weight loss ENT Denies dizziness Card Denies chest pain, Denies leg edema, Denies lightheadedness, Denies palpitations, Denies dyspnea on exertion, Denies orthopnea and Denies other Resp Denies cough and Denies dyspnea on exertion GI Denies hematochezia and Denies change in stool character Musc Denies abnormal gait, Denies muscle weakness, Denies numbness, Denies radiating pain into limb and Denies tingling Neuro Denies abnormal gait, Denies dizziness, Denies numbness and Denies tingling Endo Denies fatigue and Denies palpitations Physical Exam Vital Signs: Last Vital Signs Pulse 70 12/21/24 08:50 BP 146/60 H 12/21/24 08:50 BMI result Body Mass Index 32.6 Const General: comfortable and no acute distress Orientation/consciousness: patient oriented x3 HEENT Other: Unremarkable Head: Yes normal to inspection Neck Neck: Yes normal visual inspection Chest Chest palpation & inspection: normal inspection of the chest Resp Auscultation: clear to auscultation bilaterally Cardio Palpation: normal PMI Heart sounds: S1 normal heart sound present, S2 normal heart sound present, no gallops, no murmurs and no rubs GI Palpation (GI): Soft to palpation Back/Spine/Pelvis Other: unremarkable Skin General skin exam: no rashes or lesions noted Neuro General: patient oriented x3 Extrem General: Yes normal to inspection Psych Mental Status: mental status grossly normal Assessment & Plan Assessment & Plan (1) Coronary artery disease: Code(s): I25.10 - Atherosclerotic heart disease of [place] coronary artery without angina pectoris Category: Medical Qualifiers: Associated angina: without angina Coronary Disease-Associated Artery/Lesion type: [place] artery [place] vs. transplanted heart: [place] heart Qualified Code(s): I25.10 - Atherosclerotic heart disease of [place] coronary artery without angina pectoris Plan: In the cardiac catheterization, diffuse CAD but nothing truly intervenable. Hence on medical therapy only. On aspirin and beta-blockers, statins, Zetia. Off Plavix and there is also GI bleeding history. Last LDL 58 mg/dL. (2) Chronic HFrEF (heart failure with reduced ejection fraction): Code(s): I50.22 - Chronic systolic (congestive) heart failure Category: Medical Plan: Initial echocardiogram with LVEF of 30-35% and more recently normalized. On diuretics, beta-blockers, Farxiga. He was on Olmesartan, but he also has renal insufficiency with rising creatinine hence that has been stopped. Most recent creatinine is 1.06. (3) Hypertension: Code(s): I10 - Essential (primary) hypertension Category: Medical Qualifiers: Hypertension type: essential hypertension Qualified Code(s): I10 - Essential (primary) hypertension Plan: Slightly elevated today but home blood pressures are in the normal range. No changes made. Plan Discussed with who came for appointment. Coding Level of Care Code Est Pt Level 4 (48146) Complex EM visit Add On G2211 Diagnoses Coronary artery disease involving [place] coronary artery of [place] heart without angina pectoris I25.10 Associated angina: without angina Coronary Disease-Associated Artery/Lesion type: [place] artery [place] vs. transplanted heart: [place] heart Chronic HFrEF (heart failure with reduced ejection fraction) I50.22 Essential hypertension I10 Hypertension type: essential hypertension
--- OUTSIDE RECORDS SUMMARY | 2024-12-21 09:18 | XMS_ITS ---
Author Organization [facility] Address [address] [place] [address] Care Team Providers Care Beef Killer Name Role Phone Luke Albright Primary Care Provider Shayna Chung Unavailable [phone] Jacobo Facundo Unavailable [phone] Allergies No Known Allergies REASON FOR VISIT [...] 024 Encounters Encounter Location Date Provider Diagnosis [facility] [place] [address] [place] [address] 03/12/2024 Facundo Centeno Tinea unguium B35.1 ; [...] Name:Shayna Baileyanders valadez, 01/28/2025 03:30:00 PM, [address] [place], [address], Procedure Notes * Category Sub-Category Detail Notes [...] as necessary. Patient chooses, no pharmaceutical tx (35507) Keratoma Treatment Parring or Cutting o f Benign Hyperkeratotic Lesion(s) 91515 ( >4 Lesions) - The Benign hyperkeratotic lesions, as described above were pared, and/or cut utilizing a sterile #15 blade, tissue nippers, and/or dremel Progress Notes * Divya NAILS SrDOB: (69 yo M)Acc No.[id number]:03/12/2024 Progress Note Patient:?Divya Nails Provider:?Facundo Centeno DPM :1955???Age:69 Y???Sex:Male Dax e:03/12/2024 Address:[address] [place], [place] [address] Pcp:Luke Albright Subjective: * Chief Complaints: * ??? Painful nail(s) aggrevat ed by shoes and causing difficulty standing/walking. * HPI: ???Painful Nails:?Pt States Last PCP Visit:?Date:?12/10/2023 ?Misc:?recent [place] 04/24/23.? * ROS:?General/Constitutional:?Nausea?denies.?Vomiting?denies.?Hunger Thirst?denies.?Loss appetite?denies.?Chills?denies.?Fatigue?denies.?Fever?denies.?Night Sweats?denies.?Unexplained weight [...] * Hospitalization/Major Diagno stic Procedure:?Patient went to [place] [facility] for gout. 11/30/11Went to [place] [facility] for sprained right ankle. 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 ?Marital status: . ?Occupation: Retired/ [employer]. * Medications:?TakingAmmonium Lactate 12 % Cream 1 [...] , good attention to hygiene.?ORIENTED:?person,place, and time.?FOOT EXAM:?Lower Extremity Neurological Exam performed:?Yes ?Visual exam of foot performed:?Yes ?Date?12/11/2023 ?Sensory testing performed:?sensations diminished ?Pedal pulse taking performed:?1+?Dermatologic: ?SKIN FINDINGS:?Skin exam reveals Keratotic lesion(s) located at, Medial plantar, TA, T5, Heel(s), B/L, Skin exam reveals Keratotic lesion(s) located at, Plantar, Midfoot, B/L Skin exam reveals Keratotic lesion(s) located at, SUB MTH (s), 2, 3, 4, B/L .?Ophthalmology Referral: ?DIABETES EYE EXAM?Diabetic Retinopathy Screening:?Yes ?Findings of Diabetic Eye Exam:?no retinopathy?Ingrown Nail: ?INSPECTION:? Reveals nail incurvation, dull pain [...] as necessary. Patient chooses, no pharmaceutical tx (57444).?Keratoma Treatment:?Parring or Cutting of Benign Hyperkeratotic Lesion(s)?86867 ( >4 Lesions) - The Benign hyperkeratotic lesions, as described above were pared, and/or cut utilizing a sterile #15 blade, tissue nippers, and/or dremel.? * Procedure Codes:?28692 DEBRI DE NAIL, 6 OR MORE, Modifiers: XS 03294 TRIM SKIN LESIONS, OVER 4, Modifiers: XS * Follow Up:?3 Months * Images: * Sign off status: Completed true * Provider:?Facundo Centeno DPM Date:? 024 Generated for Deni escobar/Wing/eTarceliasmitting on:?12/21/2024 09:18 AM EST History and Physical Notes * HPI (History of Present Illness) Category Sub-Category Detail Notes Category Not es Painful Nails Misc: recent [place] 04/24/23 Pt States Last PCP Visit: Date:: [...]
--- OUTSIDE RECORDS SUMMARY | 2024-12-21 09:18 | XMS_ITS ---
Author Organization [facility] Address [address] [place] [address] Care Team Providers Care Pure Pak Machine Operator Name Role Phone Po Luke CRUZ Primary Care Provider Isaiah Zaragoza [phone] Encounters Encounter Location Date Provider Diagnosis [facility] [address] [place] [address] 11/05/2023 Isaiah Benito PLAN OF TREATMENT No Information
--- OUTSIDE RECORDS SUMMARY | 2024-12-21 09:19 | XMS_ITS | Clinical Summary ---
Author Organization [facility] Address [address] [place] [address] Phone Care Team Providers Care Legal Compliance Officer Name Role Phone Tomas Dumont MD Primary Care Provider [phone] Allergies No known active allergies Medications amLODIPine (NORVASC) 5 MG tablet Take 5 mg by mouth 1 (one) time each day 04/03/20 23 Active atorvastatin (LIPITOR) 10 MG tablet Take 1 tablet by mouth 1 (one) time each day Active clopidogrel (PLAVIX) 75 MG tablet Take 75 mg by mouth 1 (one) time each day 05/22/20 23 Active diphenhydrAMINE HCl, Sleep, (Wal-Sleep Z) 50 MG/30ML liquid 2 (two) times a day 03/08/20 14 Active Trulicity 1.5 MG/0.5ML solution pen-injector INJECT ONE PEN 1.5 MG) UNDER THE SKIN EVERY WEEK 04/10/20 23 Active ezetimibe (ZETIA) 10 MG tablet Take 10 mg by mouth 1 (one) time each day 04/10/20 23 Active glipiZIDE (GLUCOTROL XL) 5 MG 24 hr tablet Take 5 mg by mouth 1 (one) time each day 03/29/20 23 Active Basaglar KwikPen 100 UNIT/ML injection INJECT 23 UNITS SUBCUTANEOUSLY DAILY 04/10/20 23 Active metoprolol tartrate (LOPRESSOR) 100 MG tablet Take 100 mg by mouth in the morning and 100 mg in the evening. 04/03/20 23 Active mirtazapine (REMERON) 7.5 MG tablet Take 7.5 mg by mouth at bed time 06/03/20 23 Active omeprazole (PriLOSEC) [address] capsule Take 40 mg by mouth in the morning and 40 mg in the evening. 05/22/20 Active rosuvastatin (CRESTOR) 40 MG tablet Take 40 mg by mouth at bed time 06/12/20 Active sertraline (ZOLOFT) 25 MG tablet Take 25 mg by mouth 1 (one) time each day 06/03/20 Active sucralfate (CARAFATE) 1 g tablet Take 1 tablet by mouth in the morning and 1 tablet in the evening and 1 tablet before bedtime. 06/03/20 23 Active furosemide (LASIX) 40 MG tablet Take 1 tablet (40 mg total) by mouth every other day 06/14/20 Active isosorbide mononitrate (IMDUR) 30 MG 24 hr tablet Take 2 tablets (60 mg total) by mouth 1 (one) time each day 06/14/20 Active Farxiga 10 MG tablet TAKE ONE TABLET BY MOUTH EVERY DAY 90 tablet 2 04/15/20 24 Active hydrALAZINE (APRESOLINE) 10 MG tabletIndicatio ns:Hypertension ,Stage 3a chronic kidney disease (HCC),Stage 3b chronic kidney disease (HCC) Take 1 tablet (10 mg total) by mouth in the morning and 1 tablet (10 mg total) in the evening. 60 tablet 3 11/16/19 25 025 Active Active Problems Problem Noted Date Diagnosed Date Stage 3b chronic kidney disease 07/26/2023 Type 2 diabetes mellitus wit h diabetic chronic kidney disease 07/26/2023 Renal osteodystrophy 07/26/2023 Chronic kidney disease 06/14/2023 Stage 3a chronic kidney disease 06/14/2023 Acute nontraumatic kidney injury, not otherwise specified 06/14/2023 Hypertension 06/14/2023 Encounters Date Type Department Care Team Description 11/16/2024 Refill [facility] [address] [address] Ena Valentino Hypertension; Stage 3a chronic kidney disease (HCC); Stage 3b chronic kidney disease (HCC) from Last 3 Months Family History Medical History Relation Comments Diabetes Mother Relation Status Comments Father Mother Social History Tobacco Use Types Packs/Day Years Used Date Smoking Tobacco: Never Smokeless Tobacco: Never Alcohol Use Standard Drinks/Week Comments Never 0 (1 standard drink = 0.6 oz pur e alcohol) Sex and Gender Information Value Date Recorded Sex Assigned at Not on file Legal Sex Male 9:18 AM EDT Gender Identity Not on file Sexual Orientation Not on file Last Filed Vital Signs Vital Sign Reading Time Taken Comments Blood Pressure 130/65 04/27/2024 4:22 PM EDT Pulse 74 04/27/2024 4:22 PM EDT Temperature - - Respiratory Rate - - Oxygen Saturation 98% 04/27/2024 4:22 PM EDT Inhaled Oxygen Concentration - - Weight 99.3 kg (219 lb) 04/27/2024 4:22 PM EDT Height - - Body Mass Index - - Plan of Treatment Upcoming Encounters Date Type Department Care Team (Late st Contact Info) Description 01/11/2025 3:15 PM EDT Office Visit [facility] [address] [place] [address] Tomas Dumont MD [address] [facility] [address] [place] [address] Health Maintenance Due Date Last Done Comments Pneumococcal Vaccine: 65+ Ye ars (1 of 2 - PCV) 1960 Colorectal Cancer Screening: Annual FOBT 2003 Colorectal Cancer Screening: Colonoscopy 2003 Colorectal Cancer Screening: Sigmoidoscopy 2003 Diabetes: Ophthalmology Exam 07/24/2023 Diabetes: Pedal Pulse Checked 07/24/2023 Diabetes: Sensory Foot Exam 07/24/2023 Diabetes: Visual Foot Exam 07/24/2023 Influenza Vaccine (#1) 2024 Diabetes: Hemoglobin A1C 06/26/2024 03/26/2024 Hepatitis B Vaccine Aged Out No longe r eligible based on patient's age to complete this topic Procedures Procedure Name Priority Date/Time Associated Diagnosis Comments EXT RESULT ENTRY Routine 03/26/2024 from Last 3 Months or Most Recently Relevant to Health Maintenance Results * (ABNORMAL) EXT RESULT ENTRY (03/26/2024) WBC 8.5 3.3 - 10.0 10*3/ML Red Blood Cell Count 5.39 Hemoglobin 13.8 13.5 - 17.5 Hematocrit 44.6 41.0 - 53.0 Platelets 191 150 - 399 10*3/UL MCV 82.7 82.0 - 108.0 Neutrophils Absolute 69.60(A) 1.30 - 8.30 10*3/UL Lymphocytes Absolute 17.20(A) 1.40 - 2.90 10*3/UL Monocytes Absolute 7.80(A) 0.20 - 0.80 10*3/UL Eosinophils Absolute 4.30(A) 0.20 - 0.70 10*3/UL Glucose 126 60 - 200 Hemoglobin A1C 6.0 4.0 - 6.0 03/26/2024 [facility] Provider LAB BLOOD ORDERABLES Lisa l Result from Last 3 Months or Most Recently Relevant to Health Maintenance Insurance [facility]ICARE [facility] MED[facility]ARE [facility] Care Teams Legal Compliance Officer Relationship Specialty Start Date End Date Tomas Dumont MD [address] [address] PCP - General Nephrology 07/26/23
--- OUTSIDE RECORDS SUMMARY | 2024-12-21 09:19 | XMS_ITS | Patient Health Record ---
Author Organization [facility] Address [address] [place] [address] Care Team Providers Care Manager Ship Name Role Phone Po Luke CRUZ Primary Care Provider Isaiah Zaragoza [phone] ALLERGIES Allergen (clinical drug ingredient) Drug/Non Drug [...] malignant neoplasm of colon (Z12.11) Active confirmed 500667207 Problem History of adenomatous polyp of colon (Z86.010) Active confirmed 264145136 Problem Diarrhea (R19.7) Active confirmed 25654 008 Problem Acute gastric ulcer with hemorrhage (K25.0) Active confirmed 62337960 Problem Irritable bowel syndrome with diarrhea (K58.0) Active confirmed 990204872 Problem Chronic gastritis (K29.50) Active confirmed Chronic gastrit is (2431720) Problem Diarrhea, unspecified type (R19.7) Active confirmed 13842073 Problem Diverticulosis of sigmoid colon (K57.30) Active confirmed Diverticulosis of sigmoid colon (639018293) Problem Incontinence of feces, unspecified fecal incontinence type (R15.9) Active confirmed 81930162 Problem Gastric ulcer (K25.9) Active confirmed Gastric ulcer (767035991) PLAN OF TREATMENT Pending Test Test Name [...] OF [place] [address] [place] [address] [id number] SHANTI MCKINNON Self - patient is the insured [employer] ATT[employer] CLAIMS [address] [place] [address] [id number] SHANTI MCKINNON Self - patient is the insured MEDICAL (GENERAL) HISTORY Medical History History ICD Code CAD with CABG as below--no history of CO NIDDM Denies CO,CVA,Lung disease,renal disease HTN Hyperlipidemia Colonoscopy 02/2012--hyperpla stic [...]
--- OUTSIDE RECORDS SUMMARY | 2024-12-21 09:19 | XMS_ITS | Encounter Summary ---
Author Organization [facility] Address [address] [address] Phone Care Team Providers Care Regional Guide Name Role Phone Tomas Dumont MD Primary Care Provider [phone] Encounter Details Date Type Department Care Team (Late st Contact Info) Description 07/01/2024 Office Communication [facility] [address] [address] Tomas Dumont MD [facility] [address] [address] Social History Tobacco Use Types Packs/Day Years Used Date Smoking Tobacco: Never Smokeless Tobacco: Never Alcohol Use Standard Drinks/Week Comments Never 0 (1 standard drink = 0.6 oz pur e alcohol) Sex and Gender Information Value Date Recorded Sex Assigned at Not on file Legal Sex Male 9:18 AM EDT Gender Identity Not on file Sexual Orientation Not on file documented as of this encounter Miscellaneous Notes * Telephone Encounter - Tomas Dumont MD - 07/01/2024 7:25 PM EDT Needs f/u in 11 months documented in this encounter Plan of Treatment Upcoming Encounters Date Type Department Care Team (Late st Contact Info) Description 01/11/2025 3:15 PM EDT Office Visit [facility] [address] [place] [address] Tomas Dumont MD [facility] [address] [address] documented as of this encounter Visit Diagnoses Not on filedocumented in this encounter Care Teams Regional Guide Relationship Specialty Start Date End Date Tomas Dumont MD [address] [phone] PCP - General Nephrology 07/26/23 documented as of this encounter
--- OUTSIDE RECORDS SUMMARY | 2024-12-21 09:19 | XMS_ITS ---
Author Organization [facility] Address [address] [place] [address] Care Team Providers Care Cigar Packer And Sorter Name Role Phone Luke Albright Primary Care Provider Shayna Chung Unavailable [phone] Allergies No Known Allergies REASON FOR VISIT [...] Polyneuropathy due to type 2 diabetes mellitus (476655897) Type 2 diabetes mellitus with diabetic polyneuropathy (E11.42) Active confirmed Vital Signs Height 5ft9in in 09/16/2024 Weight 209 lbs 09/16/2024 BMI 30.86 kg/m2 09/16/2024 Blood pressure systolic 123 mm Hg 09/16/20 Blood pressure diastolic 79 mm Hg 024 Procedures Procedure Date Ordered Date Performed Result Body Sit e 38929-YAGBJXU NAIL, 6 OR MORE 09/16/2024 N/A 93512-NWET SKIN LESIONS, OVER 4 09/16/2024 N/A Encounters Encounter Location Date Provider Diagnosis [facility] [address] [place] [address] 09/16/2024 Shayna Patel Type 2 diabetes mellitus with diabetic polyneuropathy E11.42 and Tinea unguium B35.1 Assessments Encounter Date Diagnosis (ICD Code) Assessment Notes Treatment Notes Treatment Clinical Notes Section Notes 09/16/2024 Type 2 diabetes mellitus with diabetic polyneuropathy (ICD-10 - E11.42) 09/16/2024 Tinea unguium (ICD-10 - B35.1) Plan Of Treatment Pending Test Test Name Order Date 38481-MRTVNZJ NAIL, 6 OR MORE 09/16/2024 40152-ZDDT SKIN LESIONS, OVER 4 09/16/20 24 Next Appt Details Follow Up: 3 Months, Reason: Provider Name:Shayna valadez, 01/28/2025 03:30:00 PM, [address] [place] [address], [address], Procedure Notes * Category Sub-Category Detail Notes [...] use of a nail nipper and/or dremel-type barytes grinder, to a more viable healthy nail plate [...] to maintain effectiveness in symptomatic relief - 22713 Keratoma Treatment Parring or Cutting o f Benign Hyperkeratotic Lesion(s) (-57) More than 4 Lesions - The Benign hyperkeratotic lesions, ( __ ) in total, locations as stated and described in exam, were pared, and/or cut utilizing a sterile 15 blade, tissue nippers, and/or power dremel instrumentation - 14234 Progress Notes * Divya NAILS SrDOB: (69 yo M)Acc No.[id number]:09/16/2024 Progress Note Patient:?Divya NAILS Sr Provider:?Shayna Patel DPM :1955???Age:69 Y???Sex:Male Dax e:09/16/2024 Address:[address] [place], [place] [address] Pcp:Luke Albright Subjective: * Chief Complaints: * [...] * Hospitalization/Major Diagno stic Procedure:?Patient went to [facility] for gout. 11/30/11Went to [facility] for sprained right ankle. 03/2013Patient went [place] [facility] [place] in [place]. 08/2014pt went to [facility] [place] dis[place] shoulder 07/07/[place] [place] 4 days given Meds 04/23/[place] [place] 01/2023 * Family History:?Mother: [...] wood,snow plow. ?Marital status: . 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 * Medications:?TakingExtra Dep th Diabetic Shoes with [...] gies Verified] Objective: * Vitals:?Ht:5ft9in, Wt:209, B MT:30.86, Shoe size:10.5, BP:123/79mm Hg, BS:119, Ht-cm: 175.26 cm, Wt-k.8 kg. * Examination: ???General Examination: ?GENERAL APPEARANCE:?Reveals a pleasant, alert, well nourished, well- developed, well hydrated individual, who demonstrates proper attention to hygiene/body habitus, and is in no acute distress, Pt serves as own historian for office visit today.?ORIENTED:?person, place, and time.?CQM Exceptions:: ?Hemoglobin A1c not performed?Reason:?No reason specified?Neurological: ?SENSORY:? Neurological exam demonstrates, reduced light touch [...] (s), 2, 3, 4, B/L .?Vascular: ?DP PULSES(B):?/, B/L.?PT PULSES(B):?10/24, B/L.?CAPILLARY FILL TIME:?3 secs. per digit, b/l.?EDEMA(C):? 1/, Right, 2/4, Left, Feet, Ankle(s), Leg(s).?Orthopedic: ?MUSCLE STRENGTH:?5/5 all groups in a symmetrical fashion, B/L.?Ophthalmology Referral: ?DIABETIC RETINOPATHY?Macular or Fundus exam:?No ?Provided communication to Referring Provider on the severity of Retinopathy and Macular Edema??No??? Assessment: * Assessment: 1.?Type 2 diabetes mellitus [...] use of a nail nipper and/or dremel-type barytes grinder, to a more viable healthy nail plate [...] to maintain effectiveness in symptomatic relief - 22261.?Keratoma Treatment:?Parring or Cutting of Benign Hyperkeratotic Lesion(s)?(-57) More than 4 Lesions - The Benign hyperkeratotic lesions, ( __ ) in total, locations as stated and described in exam, were pared, and/or cut utilizing a sterile 15 blade, tissue nippers, and/or power dremel instrumentation - 85809.? * Procedure Codes:?75672 DEBRI DE NAIL, 6 OR MORE, Modifiers: XS 68287 TRIM SKIN LESIONS, OVER 4, Modifiers: XS * Follow Up:?3 Months * Images: * Sign off status: Completed true * Provider:?Shayna Patel DPM Date:?11/16/2023 Generated for Deni escobar/Wing/Aaron on:?12/21/2024 09:18 AM EST History and Physical Notes * HPI (History of Present Illness) Category Sub-Category Detail Notes Category Not es At Risk footcare Pt States Last PCP Visit: Date: Examination Category Sub-Category Detail Notes Category Not [...]
--- OUTSIDE RECORDS SUMMARY | 2024-12-21 09:19 | XMS_ITS | Patient Health Record ---
Author Organization [facility] [place] Address [address] [place] [address] Care Team Providers Care Feed Research Technician Name Role Phone Luke Albright Primary Care Provider Shayna Chung Unavailable [phone] Facundo Centeno Unavailable [phone] Allergies No Known Allergies Reason For Referral [...] Polyneuropathy due to type 2 diabetes mellitus (167276242) Type 2 diabetes mellitus with diabetic polyneuropathy (E11.42) Active confirmed Problem Acquired hammer toe of right foot (4700977953756484 ) Other hammer toe(s) (acquired), right foot (M20.41) Active confirmed Problem Acquired hammer toe of left foot (2654171192322728 ) Other hammer toe(s) (acquired), left foot (M20.42) Active confirmed Problem Polyneuropathy due to diabetes mellitus type I (883661999) Type 1 diabetes mellitus with diabetic polyneuropathy (E10.42) Active confirmed Vital Signs Blood pressure diastolic 79 mm Hg 09/16/2024 Height 5ft9in in 09/16/2024 Blood pressure systolic 123 mm Hg 09/16/2024 Weight 209 lbs 09/16/2024 BMI 30.86 kg/m2 09/16/2024 Procedures Procedure Date Ordered Date Performed Result Body Sit e 89491-CFZZXEF NAIL, 6 OR MORE 09/16/2024 N/A 45477-JKNC SKIN LESIONS, OVER 4 09/16/2024 N/A Encounters Encounter Location Date Provider Diagnosis [facility] [address] [place] [address] 03/12/2024 Facundo Centeno Tinea unguium B35.1 ; Ingrowing nail L60.0 ; Type 1 diabetes mellitus with diabetic polyneuropathy E10.42 ; Pain in right toe(s) M79.674 ; Pain in left toe(s) M79.675 ; Xerosis cutis L85.3 ; Tinea pedis B35.3 ; Other hammer toe(s) (acquired), left foot M20.42 and Other hammer toe(s) (acquired), right foot M20.[address] [facility] [address] 06/11/2024 Facundo Centeno Tinea unguium B35.1 ; Ingrowing nail L60.0 ; Type 1 diabetes mellitus with diabetic polyneuropathy E10.42 ; Pain in right toe(s) M79.674 ; Pain in left toe(s) M79.675 ; Xerosis cutis L85.3 ; Tinea pedis B35.3 ; Other hammer toe(s) (acquired), left foot M20.42 and Other hammer toe(s) (acquired), right foot M20.[address] [address] 09/16/2024 Shayna Patel Type 2 diabetes mellitus [...] M79.675) 03/12/2024 Xerosis cutis (ICD-10 - L85.3) 06/11/2024 [...] Treatment Pending Test Test Name Order Date 19503-EOTFZKI NAIL, 6 OR MORE 08/06/2011 21719-UVUVJBU NAIL, 6 OR MORE 12/03/2011 91547-GDFHBDG NAIL, 6 OR MORE 02/18/2012 00795-ZZIRMVW NAIL, 6 OR MORE 05/19/2012 36888-WEWHNMI NAIL, 6 OR MORE 08/04/2012 10623-AFEDJOT NAIL, 6 OR MORE 11/03/2012 32262-HRHVQZG NAIL, 6 OR MORE 02/02/2013 53735-KTMKHHR NAIL, 6 OR MORE 05/18/2013 15574-HYBMYPH NAIL, 6 OR MORE 09/02/2013 24488-AGAUPDT NAIL, 6 OR MORE 12/03/2013 71274-NLUVTGI NAIL, 6 OR MORE 03/08/2014 73934-KQJPOJV NAIL, 6 OR MORE 06/09/2014 52014-YGPWPGC NAIL, 6 OR MORE 09/13/2014 06280-BQESLUB NAIL, 6 OR MORE 12/13/2014 42020-SWCUDQV NAIL, 6 OR MORE 03/16/2015 26824-CTXAQGO NAIL, 6 OR MORE 06/16/2015 03735-OMJRHKP NAIL, 6 OR MORE 09/12/2015 88263-SGZOKMN NAIL, 6 OR MORE 12/12/2015 21706-RECOLOU NAIL, 6 OR MORE 03/15/2016 61094-SKZMCSJ NAIL, 6 OR MORE 06/13/2016 78235-ZFXJQKX NAIL, 6 OR MORE 09/12/2016 55856-AANIYZV NAIL, 6 OR MORE 12/19/2016 19652-WLMFSLH NAIL, 6 OR MORE 03/20/2017 71423-GJTUPLZ NAIL, 6 OR MORE 06/20/2017 09132-XXHFRIO NAIL, 6 OR MORE 09/18/2017 78887-OBCQSUE NAIL, 6 OR MORE 12/23/2017 06078-AIRLHZZ NAIL, 6 OR MORE 03/24/2018 80381-PUXCIIU NAIL, 6 OR MORE 06/25/2018 32202-FKIMFAG NAIL, 6 OR MORE 09/24/2018 25984-SGMHAVX NAIL, 6 OR MORE 09/16/2024 92442-Ocwyogcb Plate 06/09/2014 70186-Icrlaepo Plate 12/13/2014 82997-Peurjrxr Plate 11/03/2012 20390-Utrkcfex Plate 08/04/2012 27100-Nedmobgm Plate 02/18/2012 34100-Snwjkabr Plate 05/19/2012 12800-Dwtlwedp Plate 12/03/2011 11474-Wjvtgtri Plate 08/06/2011 47417- Debride <25 sq cm 12/13/2014 92560-ZERS SKIN LESIONS, OVER 4 09/13/20 14 78049-WTOQ SKIN LESIONS, OVER 4 06/09/20 14 96558-KQUJ SKIN LESIONS, OVER 4 03/08/20 14 81404-PSHQ SKIN LESIONS, OVER 4 12/03/19 14 64357-GXEC SKIN LESIONS, OVER 4 09/02/20 13 33298-CUNI SKIN LESIONS, OVER 4 05/18/20 13 00067-NMJS SKIN LESIONS, OVER 4 02/03/20 13 03987-VHYZ SKIN LESIONS, OVER 4 11/03/19 13 44516-JYGH SKIN LESIONS, OVER 4 12/13/19 15 78504-BLZY SKIN LESIONS, OVER 4 03/16/20 15 61644-PIZC SKIN LESIONS, OVER 4 09/12/20 15 87003-XIJQ SKIN LESIONS, OVER 4 06/16/20 15 38716-TNBE SKIN LESIONS, OVER 4 09/12/20 16 63239-OLQB SKIN LESIONS, OVER 4 06/13/20 16 87516-ECZU SKIN LESIONS, OVER 4 03/15/20 16 26130-OIPA SKIN LESIONS, OVER 4 12/12/19 16 64805-BSUH SKIN LESIONS, OVER 4 09/24/20 18 09197-LREZ SKIN LESIONS, OVER 4 06/25/20 18 88042-ZEAE SKIN LESIONS, OVER 4 03/24/20 18 14179-ENUT SKIN LESIONS, OVER 4 12/24/19 18 28581-AFJZ SKIN LESIONS, OVER 4 09/18/20 17 86759-ISYB SKIN LESIONS, OVER 4 12/20/19 17 38053-FOOQ SKIN LESIONS, OVER 4 09/16/20 24 99141-NHYV SKIN LESIONS, OVER 4 12/25/19 19 40418-QWCT SKIN LESIONS, OVER 4 03/25/20 19 14686-ALPB SKIN LESIONS, OVER 4 07/02/20 19 16504-VOJQ SKIN LESIONS, OVER 4 10/05/20 19 26507-WSNM SKIN LESIONS, OVER 4 12/30/19 20 35252-RIBU SKIN LESIONS, OVER 4 04/04/20 20 71639-YNOK SKIN LESIONS, OVER 4 07/11/20 20 78719-PDGD SKIN LESIONS, OVER 4 11/16/19 21 68864-LCUD SKIN LESIONS, OVER 4 02/09/20 21 50949-RJRP SKIN LESIONS, OVER 4 05/11/20 21 16967-MXQG SKIN LESIONS, OVER 4 08/14/20 21 89949-ENSQ SKIN LESIONS, OVER 4 11/15/19 22 14014-KJKQ SKIN LESIONS, 2 TO 4 03/20/20 17 66428-FNIB SKIN LESIONS, 2 TO 4 06/20/20 17 43287-IBYE SKIN LESIONS, 2 TO 4 11/03/19 13 60208-CTAY SKIN LESIONS, 2 TO 4 08/04/20 12 95142-COVS SKIN LESIONS, 2 TO 4 08/06/20 11 86983-FOVT SKIN LESIONS, 2 TO 4 12/03/19 12 99000-LQYU SKIN LESIONS, 2 TO 4 05/19/20 12 39564-DSJF SKIN LESIONS, 2 TO 4 02/18/20 12 47532-LAWBRENR OF HEMATOMA/FLUID 018 Next Appt Details Provider Name:Shayna valadez, 01/28/2025 03:30:00 PM, [address] [facility], [place], [address], Insurance Providers Payer Name Payer Address Payer Phone Subscriber Number Group Number Insured Name Patient Relationship to Insured Coverage Start Date Coverage End Date Medicare National Govt [facility] [address] [place] [address] [id number] [employer] Divya ramon Self - patient is the insured [employer] [address] [place] [address] [id number] Divya De Los Santos Self - patient is the insured Medical (General) History Medical History History ICD Code mumps measles chicken pox type II diabetes Surgical History Surgery Date(Month/Year) cholecystectomy 1986 rotator cuff tear repair 2008 triple bypass surgery 2000 colonoscopy 04/04/2012 hernia repair 10/30/2013 Hospitalization History Reason Date(Month/Year) [facility] [place] [facility] [place] 4 days given Meds 04/23/22 pt went to [facility] [place] dislocated shoulde r 07/07/15 Patient went to [facility] [place] in [place]. 08/2014 Went to [facility] for sprained right an kle. 03/2013 Patient went to [facility] for gout. 08/01
--- OUTSIDE RECORDS SUMMARY | 2024-12-21 09:19 | XMS_ITS ---
Author Organization [facility] Address [address] [place] [address] Care Team Providers Care Wood Mechanist Name Role Phone Luke Albright Primary Care Provider Shayna Chung Unavailable [phone] Facundo Centeno Unavailable [phone] Allergies No Known Allergies REASON FOR VISIT [...] 024 Encounters Encounter Location Date Provider Diagnosis [facility] [place] [address] [place] [address] 06/11/2024 Facundo Centeno Tinea unguium B35.1 ; [...] Name:Shayna Baileyanders valadez, 01/28/2025 03:30:00 PM, [address] [place], [address], Procedure Notes * Category Sub-Category Detail Notes [...] as necessary. Patient chooses, no pharmaceutical tx (64041) Keratoma Treatment Parring or Cutting o f Benign Hyperkeratotic Lesion(s) 35081 ( >4 Lesions) - The Benign hyperkeratotic lesions, as described above were pared, and/or cut utilizing a sterile #15 blade, tissue nippers, and/or dremel Progress Notes * Divya NAILS SrDOB: (69 yo M)Acc No.[id number]:06/11/2024 Progress Note Patient:?Divya Nails Provider:?Facundo Centeno DPM :1955???Age:69 Y???Sex:Male Dax e:06/11/2024 Address:[address] [place], [place] [address] Pcp:Luke Albright Subjective: * Chief Complaints: * ??? Painful nail(s) aggrevat ed by shoes and causing difficulty standing/walking. * HPI: ???Painful Nails:?Pt States Last PCP Visit:?Date:?03/23/2024 ?Misc:?recent MS 04/24/23.? * ROS:?General/Constitutional:?Nausea?denies.?Vomiting?denies.?Hunger Thirst?denies.?Loss appetite?denies.?Chills?denies.?Fatigue?denies.?Fever?denies.?Night Sweats?denies.?Unexplained weight [...] * Hospitalization/Major Diagno stic Procedure:?Patient went to [facility] for gout. 11/30/11Went to [facility] for sprained right ankle. 03/2013Patient went to [facility] for stitches in head. 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 ?Marital status: . ?Occupation: Retired/ [employer]. * Medications:?TakingExtra Dep th Diabetic Shoes with [...] as necessary. Patient chooses, no pharmaceutical tx (85250).?Keratoma Treatment:?Parring or Cutting of Benign Hyperkeratotic Lesion(s)?05112 ( >4 Lesions) - The Benign hyperkeratotic lesions, as described above were pared, and/or cut utilizing a sterile #15 blade, tissue nippers, and/or dremel.? * Procedure Codes:?05491 DEBRI DE NAIL, 6 OR MORE, Modifiers: XS 38083 TRIM SKIN LESIONS, OVER 4, Modifiers: XS * Follow Up:?3 Months * Images: * Sign off status: Completed true * Provider:?Facundo Centeno DPM Date:? 024 Generated for Deni escobar/Wing/eTransmitting on:?12/21/2024 09:18 AM EST History and Physical Notes * HPI (History of Present Illness) Category Sub-Category Detail Notes Category Not es Painful Nails Misc: recent MS 04/24/23 Pt States Last PCP Visit: Date:: [...]
--- OUTSIDE RECORDS SUMMARY | 2024-12-21 09:20 | XMS_ITS ---
Author Organization [facility] Address [address] [place] [address] Care Team Providers Care Injury/Safety Hazard Assessment Name Role Phone Po Luke CRUZ Primary Care Provider Isaiah Zaragoza [phone] REASON FOR VISIT Review his med instructions for the 12/02 colonoscopy Encounters Encounter Location Date Provider Diagnosis [facility] [address] [place] [address] 11/21/2023 Isaiah Benito PLAN OF TREATMENT No Information
--- OUTSIDE RECORDS SUMMARY | 2024-12-21 09:20 | XMS_ITS ---
Author Organization [facility] Address [address] [place] [address] Care Team Providers Care Dispatch Clerk Name Role Phone Po Luke CRUZ Primary Care Provider Isaiah Zaragoza [phone] REASON FOR VISIT acute gastric ulcer w/ hemorrage PROBLEMS Problem Type ICD Code Onset Dates Problem Status W/U Status Risk SNOMED Code Notes Problem Chronic gastritis (K29.50) Active confirmed Chronic gastritis (8781550) Encounters Encounter Location Date Provider Diagnosis [facility] [address] [place] [phone] 12/02/2023 Isaiah Benito Hiatal hernia K44. 9 and Chronic gastritis K29.50 ASSESSMENTS Encounter Date Diagnosis Assessment Notes Treatment Notes Treatment Clinical Notes 12/02/2023 Hiatal hernia (ICD-10 - K44.9) 12/02/2023 Chronic gastritis (ICD-10 - K29.50) PLAN OF TREATMENT No Information
== END 2024-12-21 09:22 | disposition home or self-care (01) ==
PROVIDERS: PCP Internal Medicine; Visit Provider Internal Medicine
DX: I25.10 Atherosclerotic heart disease of native coronary artery without angina pectoris (principal); I50.22 Chronic systolic (congestive) heart failure; I10 Essential (primary) hypertension
CPT/HCPCS: 99214; G2211

== ENCOUNTER → 2024-12-21 08:47 | Outpatient (BNVA) | payer MEDICARE, SELFPAY ==
[2023-09-19 08:02] VITALS: BP 140/52; BP 140/74; BMI 31.0
== END ==
PROVIDERS: PCP Internal Medicine; Visit Provider Internal Medicine
DX: I25.10 Atherosclerotic heart disease of native coronary artery without angina pectoris (principal); I11.0 Hypertensive heart disease with heart failure; I50.22 Chronic systolic (congestive) heart failure; Z95.1 Presence of aortocoronary bypass graft
CPT/HCPCS: 99212

== ENCOUNTER 2025-01-22 06:57 | Outpatient (REF) | payer MEDICARE, SELFPAY ==
[2023-09-19 08:02] VITALS: BP 140/52; BP 140/74; BMI 31.0
--- OUTSIDE RECORDS SUMMARY | 2025-01-22 07:00 | XMS_ITS | Patient Health Record ---
Author Organization [facility]in Address [address] [place] [address] Care Team Providers Care Director Financial Analysis Name Role Phone Luke Albright Primary Care Provider Shayna Chung Unavailable [phone] Facundo Centeno Unavailable [phone] Allergies No Known Allergies Reason For Referral [...] Polyneuropathy due to type 2 diabetes mellitus (920586268) Type 2 diabetes mellitus with diabetic polyneuropathy (E11.42) Active confirmed Problem Acquired hammer toe of right foot (3479908927698183 ) Other hammer toe(s) (acquired), right foot (M20.41) Active confirmed Problem Acquired hammer toe of left foot (8136852502230284 ) Other hammer toe(s) (acquired), left foot (M20.42) Active confirmed Problem Polyneuropathy due to diabetes mellitus type I (712809194) Type 1 diabetes mellitus with diabetic polyneuropathy (E10.42) Active confirmed Vital Signs Blood pressure diastolic 79 mm Hg 09/16/2024 Height 5ft9in in 09/16/2024 Blood pressure systolic 123 mm Hg 09/16/2024 Weight 209 lbs 09/16/2024 BMI 30.86 kg/m2 09/16/2024 Procedures Procedure Date Ordered Date Performed Result Body Sit e 96533-EUPFGPA NAIL, 6 OR MORE 09/16/2024 N/A 51415-WOHY SKIN LESIONS, OVER 4 09/16/2024 N/A Encounters Encounter Location Date Provider Diagnosis [facility] [address] [place] [address] 03/12/2024 Facundo Centeno Tinea unguium B35.1 ; Ingrowing nail L60.0 ; Type 1 diabetes mellitus with diabetic polyneuropathy E10.42 ; Pain in right toe(s) M79.674 ; Pain in left toe(s) M79.675 ; Xerosis cutis L85.3 ; Tinea pedis B35.3 ; Other hammer toe(s) (acquired), left foot M20.42 and Other hammer toe(s) (acquired), right foot M20.[address] [facility] [address] 06/11/2024 Facundo Centeno Tinea unguium B35.1 ; Ingrowing nail L60.0 ; Type 1 diabetes mellitus with diabetic polyneuropathy E10.42 ; Pain in right toe(s) M79.674 ; Pain in left toe(s) M79.675 ; Xerosis cutis L85.3 ; Tinea pedis B35.3 ; Other hammer toe(s) (acquired), left foot M20.42 and Other hammer toe(s) (acquired), right foot M20.[address] [address] 09/16/2024 Shayna Patel Type 2 diabetes mellitus [...] Treatment Pending Test Test Name Order Date 37344-ODNZOHF NAIL, 6 OR MORE 08/06/2011 42528-MMLWSXN NAIL, 6 OR MORE 12/03/2011 14647-CYMCOFW NAIL, 6 OR MORE 02/18/2012 36684-QVHONPJ NAIL, 6 OR MORE 05/19/2012 98905-WNAVRSD NAIL, 6 OR MORE 08/04/2012 95078-XFTLDJO NAIL, 6 OR MORE 11/03/2012 39832-QJBZFWR NAIL, 6 OR MORE 02/02/2013 96194-ILXPQVH NAIL, 6 OR MORE 05/18/2013 61563-JUMCDYY NAIL, 6 OR MORE 09/02/2013 65877-PPGLVLI NAIL, 6 OR MORE 12/03/2013 98096-NMNWUZO NAIL, 6 OR MORE 03/08/2014 86952-DCUHBTL NAIL, 6 OR MORE 06/09/2014 62045-JWYSTDE NAIL, 6 OR MORE 09/13/2014 97993-RPPKRSP NAIL, 6 OR MORE 12/13/2014 64464-CDGUFOM NAIL, 6 OR MORE 03/16/2015 94393-SELQTTH NAIL, 6 OR MORE 06/16/2015 38758-BEHGBPC NAIL, 6 OR MORE 09/12/2015 38923-RCVYUOG NAIL, 6 OR MORE 12/12/2015 58800-NMQDPBP NAIL, 6 OR MORE 03/15/2016 53912-KAFAWEO NAIL, 6 OR MORE 06/13/2016 12045-MVQGRKT NAIL, 6 OR MORE 09/12/2016 83467-QXYSJKW NAIL, 6 OR MORE 12/19/2016 89890-DPPKVBA NAIL, 6 OR MORE 03/20/2017 67773-VITDNTR NAIL, 6 OR MORE 06/20/2017 33999-LSKQVMU NAIL, 6 OR MORE 09/18/2017 58932-JXTBMFM NAIL, 6 OR MORE 12/23/2017 12901-FRWYVFJ NAIL, 6 OR MORE 03/24/2018 29132-CXLYFDL NAIL, 6 OR MORE 06/25/2018 72188-CIFUSIC NAIL, 6 OR MORE 09/24/2018 95964-GCJRQBI NAIL, 6 OR MORE 09/16/2024 30126-Ueikeflh Plate 06/09/2014 62253-Wpykucrl Plate 12/13/2014 29603-Awevubnm Plate 11/03/2012 29070-Udxxcfnw Plate 08/04/2012 15508-Lkttzjqc Plate 02/18/2012 78375-Fwbqoyjn Plate 05/19/2012 16667-Yrqclnsd Plate 12/03/2011 13356-Ozsskijz Plate 08/06/2011 57623- Debride <25 sq cm 12/13/2014 52730-TTEB SKIN LESIONS, OVER 4 09/13/20 14 71384-GXAY SKIN LESIONS, OVER 4 06/09/20 14 66965-CBPD SKIN LESIONS, OVER 4 03/08/20 14 62425-DJXZ SKIN LESIONS, OVER 4 12/03/19 14 99320-XDTA SKIN LESIONS, OVER 4 09/02/20 13 09145-KNAG SKIN LESIONS, OVER 4 05/18/20 13 91192-ARWS SKIN LESIONS, OVER 4 02/03/20 13 13689-MGSU SKIN LESIONS, OVER 4 11/03/19 13 81825-KIGU SKIN LESIONS, OVER 4 12/13/19 15 32523-YGKD SKIN LESIONS, OVER 4 03/16/20 15 40118-DBQC SKIN LESIONS, OVER 4 09/12/20 15 30150-CHKH SKIN LESIONS, OVER 4 06/16/20 15 83282-CHPA SKIN LESIONS, OVER 4 09/12/20 16 72602-YDNN SKIN LESIONS, OVER 4 06/13/20 16 36315-GWDA SKIN LESIONS, OVER 4 03/15/20 16 86963-JPYY SKIN LESIONS, OVER 4 12/12/19 16 87622-VHPJ SKIN LESIONS, OVER 4 09/24/20 18 24494-VBZP SKIN LESIONS, OVER 4 06/25/20 18 09960-FRVR SKIN LESIONS, OVER 4 03/24/20 18 69603-XCEF SKIN LESIONS, OVER 4 12/24/19 18 74063-XCBH SKIN LESIONS, OVER 4 09/18/20 17 85657-NODL SKIN LESIONS, OVER 4 12/20/19 17 77306-NREU SKIN LESIONS, OVER 4 09/16/20 24 27035-LHJG SKIN LESIONS, OVER 4 12/25/19 19 40743-XWCY SKIN LESIONS, OVER 4 03/25/20 19 38485-KKCD SKIN LESIONS, OVER 4 07/02/20 19 34842-TJTV SKIN LESIONS, OVER 4 10/05/20 19 05622-EHCE SKIN LESIONS, OVER 4 12/30/19 20 27120-GPSX SKIN LESIONS, OVER 4 04/04/20 20 82282-DLYM SKIN LESIONS, OVER 4 07/11/20 20 79150-COVN SKIN LESIONS, OVER 4 11/16/19 21 04013-RLCH SKIN LESIONS, OVER 4 02/09/20 21 08851-YFJP SKIN LESIONS, OVER 4 05/11/20 21 25252-SYOH SKIN LESIONS, OVER 4 08/14/20 21 22356-RSTK SKIN LESIONS, OVER 4 11/15/19 22 44254-VWWE SKIN LESIONS, 2 TO 4 03/20/20 17 26395-ZLTS SKIN LESIONS, 2 TO 4 06/20/20 17 48248-IOBA SKIN LESIONS, 2 TO 4 11/03/19 13 09759-RDSJ SKIN LESIONS, 2 TO 4 08/04/20 12 01945-TOXC SKIN LESIONS, 2 TO 4 08/06/20 11 58704-DZVA SKIN LESIONS, 2 TO 4 12/03/19 12 25492-WTHK SKIN LESIONS, 2 TO 4 05/19/20 12 48227-WYFB SKIN LESIONS, 2 TO 4 02/18/20 12 94129-UESRBPFQ OF HEMATOMA/FLUID 018 Next Appt Details Provider Name:Shayna valadez, 01/28/2025 03:30:00 PM, [address] [facility], [place], [address], Insurance Providers Payer Name Payer Address Payer Phone Subscriber Number Group Number Insured Name Patient Relationship to Insured Coverage Start Date Coverage End Date Medicare National Govt [facility] [address] [place] [address] [id number] [employer] Divya ramon Self - patient is the insured [employer] [address] [place] [address] [id number] Divya De Los Santos Self - patient is the insured Medical (General) History Medical History History ICD Code mumps measles chicken pox type II diabetes Surgical History Surgery Date(Month/Year) cholecystectomy 1986 rotator cuff tear repair 2008 triple bypass surgery 2000 colonoscopy 04/04/2012 hernia repair 10/30/2013 Hospitalization History Reason Date(Month/Year) [facility] - Stomach Issues 01/2023 [facility] -constipation for 4 days given Meds 04/23/22 pt went to [facility] ER for dislocated shoulde r 07/07/15 Patient went to [facility] ER for stitches in h ead. 08/2014 Went to [facility] for sprained right an kle. 03/2013 Patient went to [facility] for gout. 08/01
--- OUTSIDE RECORDS SUMMARY | 2025-01-22 07:00 | XMS_ITS ---
Author Organization [facility] Address [address] [place] [address] Care Team Providers Care Custodian Supervisor Name Role Phone Po Luke CRUZ Primary Care Provider Isaiah Zaragoza [phone] Encounters Encounter Location Date Provider Diagnosis [facility] [address] [place] [address] 11/05/2023 Isaiah Benito Plan Of Treatment No Information Progress Notes * SHANTI SELF DDOB:[birth year] (68 yo M)Acc No.[id number]:11/05/2023 Patient:?SHANTI SELF :1955???Age:68 Y???Sex:Male Address:[address] [place] [address], [address] * true * Date:? Generated for Deni escobar/Wing/eTransmitting on:?01/22/2025 07:00 AM EDT
--- OUTSIDE RECORDS SUMMARY | 2025-01-22 07:00 | XMS_ITS | Patient Health Record ---
Author Organization [facility] Address [address] [place] [address] Care Team Providers Care Clerk Of Scales Name Role Phone Po Luke CRUZ Primary Care Provider Isaiah Zaragoza [phone] Allergies Allergen (clinical drug ingredient) Drug/Non Drug Allergy documented on EMR Reaction Allergy Type Onset Date Status penicillin G Penicillin G Sodium Unknown Drug Allergy Active Reason For Referral No Information Medications Medication [...] 10 MG Oral for 30 Acti ve Immunizations Vaccine Route Administration Date Status Comme nts Flu vaccine no Preserv 3 and > Unknown 07/15/2015 Admin istered Influenza Unknown 09/20/2019 Administered Influenza Unknown 07/21/2021 Administered Influenza Unknown 08/21/2023 Administered Problems Problem Type SNOMED Code ICD Code Onset Dates Problem Status W/U Status Risk Notes Problem 678864525 Encounter for screening for malignant neoplasm of colon (Z12.11) Active confirmed Problem 456729529 History of adenomatous polyp of colon (Z86.010) Active confirmed Problem 79802817 Diarrhea (R19.7) Active confirmed Problem 72627432 Acute gastric ulcer with hemorrhage (K25.0) Active confirmed Problem 717177843 Irritable bowel syndrome with diarrhea (K58.0) Active confirmed Problem Chronic gastritis (1800267) Chronic gastritis (K29.50) Active confirmed Problem 14742067 Diarrhea, unspecified type (R19.7) Active confirmed Problem Diverticulosis of sigmoid colon (059835649) Diverticulosis of sigmoid colon (K57.30) Active confirmed Problem 12863984 Incontinence of feces, unspecified fecal incontinence type (R15.9) Active confirmed Problem Gastric ulcer (800277691) Gastric ulcer (K25.9) Active confirmed Plan Of Treatment Pending Test Test Name Order Date CELIAC [...] Date MEDICARE OF [place] [address] [place] [address] [phone] [id number] CARLOS RangelLEXISEN Self - patient is the insured [employer] ATT[employer] CLAIMS [address] [place] [address] [id number] CARLOS RangelSHANTI Self - patient is the insured Medical (General) History Medical History History ICD Code CAD with CABG as below--no history of VT NIDDM Denies VT,CVA,Lung disease,renal disease HTN Hyperlipidemia Colonoscopy 02/2012--hyperpla stic polyp, moderate sigmoid diverticulosis, internal hemorrhoids---neg for adenomas, IBD, microscopic colitis. IBS with diarrhea--- negativ e laboratories for celiac disease--- colonoscopy as above Pneumonia 09/2019 congestive heart failure in April 2023 Дмитрий Wilkins Cardiac catheterization 04/2023 Colonoscopy 07/2022 with tubular adenoma s UGI bleed 01/2023 with multip le gastric ulcers on EGD with bx negative for H.pylori and malignancy Surgical History Surgery Date(Month/Year) [facility]Y 1991 3-V CABG 1999 Right shoulder-rotator cuff--x 2
--- OUTSIDE RECORDS SUMMARY | 2025-01-22 07:00 | XMS_ITS ---
Author Organization [facility] Address [address] [place] [address] Care Team Providers Care Host/Hostess Ground Name Role Phone Luke Albright Primary Care Provider Shayna Chung Unavailable [phone] Facundo Centeno Unavailable [phone] Allergies No Known Allergies REASON FOR VISIT [...] 024 Encounters Encounter Location Date Provider Diagnosis [facility] [address] [place] [address] 06/11/2024 Facundo Centeno Tinea unguium B35.1 ; [...] Name:Shayna Baileyanders valadez, 01/28/2025 03:30:00 PM, [address] [place], [address], Procedure Notes * Category Sub-Category Detail Notes [...] as necessary. Patient chooses, no pharmaceutical tx (30464) Keratoma Treatment Parring or Cutting o f Benign Hyperkeratotic Lesion(s) 35836 ( >4 Lesions) - The Benign hyperkeratotic lesions, as described above were pared, and/or cut utilizing a sterile #15 blade, tissue nippers, and/or dremel Progress Notes * Divya NAILS SrDOB: (69 yo M)Acc No.[id number]:06/11/2024 Progress Note Patient:?Divya Nails Provider:?Facundo Centeno DPM :1955???Age:69 Y???Sex:Male Dax e:06/11/2024 Address:[address] [place], [place] [address] Pcp:Luke Albright Subjective: * Chief Complaints: * ??? Painful nail(s) aggrevat ed by shoes and causing difficulty standing/walking. * HPI: ???Painful Nails:?Pt States Last PCP Visit:?Date:?03/23/2024 ?Misc:?recent [place] 04/24/23.? * ROS:?General/Constitutional:?Nausea?denies.?Vomiting?denies.?Hunger Thirst?denies.?Loss appetite?denies.?Chills?denies.?Fatigue?denies.?Fever?denies.?Night Sweats?denies.?Unexplained weight [...] * Hospitalization/Major Diagno stic Procedure:?Patient went to [facility] for gout. 11/30/11Went to [facility] for sprained right ankle. 03/2013Patient went to [facility] [place] in head. 08/2014pt went to [facility] for dislocated shoulder 07/07/15[facility] [place]constipation for 4 days given Meds 04/23/22[facility] - Stomach Issues 01/2023 * Family History:?Mother: [...] wood,snow plow. ?Marital status: . 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 * Medications:?TakingExtra Dep th Diabetic Shoes with [...] as necessary. Patient chooses, no pharmaceutical tx (35458).?Keratoma Treatment:?Parring or Cutting of Benign Hyperkeratotic Lesion(s)?39510 ( >4 Lesions) - The Benign hyperkeratotic lesions, as described above were pared, and/or cut utilizing a sterile #15 blade, tissue nippers, and/or dremel.? * Procedure Codes:?93615 DEBRI DE NAIL, 6 OR MORE, Modifiers: XS 62783 TRIM SKIN LESIONS, OVER 4, Modifiers: XS * Follow Up:?3 Months * Images: * Sign off status: Completed true * Provider:?Facundo Centeno DPM Date:? 024 Generated for Deni escobar/Wing/eTransmitting on:?01/22/2025 07:00 AM EDT History and Physical Notes * HPI (History of Present Illness) Category Sub-Category Detail Notes Category Not es Painful Nails Misc: recent [place] 04/24/23 Pt States Last PCP Visit: Date:: [...]
--- OUTSIDE RECORDS SUMMARY | 2025-01-22 07:00 | XMS_ITS | Clinical Summary ---
Author Organization [facility] Address [address] [address] Phone Care Team Providers Care Mechanical Specialist Name Role Phone Tomas Dumont MD Primary Care Provider Allergies No known active allergies Medications amLODIPine (NORVASC) 5 MG tablet Take 5 mg by mouth 1 (one) time each day 023 Active atorvastatin (LIPITOR) 10 MG tablet Take 1 tablet by mouth 1 (one) time each day Active clopidogrel (PLAVIX) 75 MG tablet Take 75 mg by mouth 1 (one) time each day 023 Active diphenhydrAMIN E HCl, Sleep, (Wal-Sleep Z) 50 MG/30ML liquid 2 (two) times a day 014 Active Trulicity 1.5 MG/0.5ML solution pen-injector INJECT ONE PEN 1.5 MG) UNDER THE SKIN EVERY WEEK 023 Active ezetimibe (ZETIA) 10 MG tablet Take 10 mg by mouth 1 (one) time each day 023 Active glipiZIDE (GLUCOTROL XL) 5 MG 24 hr tablet Take 5 mg by mouth 1 (one) time each day 023 Active Basaglar KwikPen 100 UNIT/ML injection INJECT 23 UNITS SUBCUTANEOUSLY DAILY 023 Active metoprolol tartrate (LOPRESSOR) 100 MG tablet Take 100 mg by mouth in the morning and 100 mg in the evening. 023 Active mirtazapine (REMERON) 7.5 MG tablet Take 7.5 mg by mouth at bed time 023 Active omeprazole (PriLOSEC) [address] capsule Take 40 mg by mouth in the morning and 40 mg in the evening. 023 Active rosuvastatin (CRESTOR) 40 MG tablet Take 40 mg by mouth at bed time Active sertraline (ZOLOFT) 25 MG tablet Take 25 mg by mouth 1 (one) time each day Active sucralfate (CARAFATE) 1 g tablet Take 1 tablet by mouth in the morning and 1 tablet in the evening and 1 tablet before bedtime. 023 Active furosemide (LASIX) 40 MG tablet Take 1 tablet (40 mg total) by mouth every other day Active isosorbide mononitrate (IMDUR) 30 MG 24 hr tablet Take 2 tablets (60 mg total) by mouth 1 (one) time each day Active hydrALAZINE (APRESOLINE) 10 MG tabletIndicati ons:Hypertensi on,Stage 3a chronic kidney disease (HCC),Stage 3b chronic kidney disease (HCC) Take 1 tablet (10 mg total) by mouth in the morning and 1 tablet (10 mg total) in the evening. 60 tablet 3 025 2024 Active Farxiga 10 MG tablet TAKE ONE TABLET BY MOUTH EVERY DAY 90 tablet 2 025 Active Farxiga 10 MG tablet TAKE ONE TABLET BY MOUTH EVERY DAY 90 tablet 2 024 2024 Discontinued Active Problems Problem Noted Date Diagnosed Date Stage 3b chronic kidney disease 07/26/2023 Type 2 diabetes mellitus wit h diabetic chronic kidney disease 07/26/2023 Renal osteodystrophy 07/26/2023 Chronic kidney disease 06/14/2023 Stage 3a chronic kidney disease 06/14/2023 Acute nontraumatic kidney injury, not otherwise specified 06/14/2023 Hypertension 06/14/2023 Encounters Date Type Department Care Team Description 01/11/2025 3:15 PM EDT Office Visit [facility] [address] [place] [address] Tomas Dumont MD Stage 3a chronic kidney disease (HCC) (Primary Dx); Renal osteodystrophy 12/26/2024 [facility]ill [facility] [address] [place] [address] Tomas Dumont MD 11/16/2024 Refill [facility] [address] [phone] Ena Valentino Hypertension; Stage 3a chronic kidney [...] Sign Reading Time Taken Comments Blood Pressure 120/70 01/11/2025 3:23 PM EDT Pulse 78 01/11/2025 3:23 PM EDT Temperature - - Respiratory Rate - - Oxygen Saturation 98% 01/11/2025 3:23 PM EDT Inhaled Oxygen Concentration - - Weight 98 kg (216 lb) 01/11/2025 3:23 PM EDT Height - - Body Mass Index - - Plan of Treatment Upcoming Encounters Date Type Department Care Team (Late st Contact Info) Description 01/10/2026 2:00 PM EDT Office Visit [facility] [address] [place] [address] Tomas Dumont MD [address] [phone] Health Maintenance Due Date Last Done Comments Pneumococcal Vaccine: 65+ Ye ars (1 of 2 - PCV) 1960 Colorectal Cancer Screening: Annual FOBT 2003 Colorectal Cancer Screening: Colonoscopy 2003 Colorectal Cancer Screening: Sigmoidoscopy 2003 Diabetes: Ophthalmology Exam 07/24/2023 Diabetes: Pedal Pulse Checked 07/24/2023 Diabetes: Sensory Foot Exam 07/24/2023 Diabetes: Visual Foot Exam 07/24/2023 Diabetes: Hemoglobin A1C 06/26/2024 03/26/2024 Influenza Vaccine (Season Ended) 2025 07/15/20 15 Hepatitis B Vaccine Aged Out No longe [...] Hemoglobin A1C 6.0 4.0 - 6.0 03/26/2024 [facility] Provider LAB BLOOD ORDERABLES Lisa l Result from Last 3 Months or Most Recently Relevant to Health Maintenance Insurance MEDICARE [facility] MEDICARE [facility] Care Teams Mechanical Specialist Relationship Specialty Start Date End Date Tomas Dumont MD [address] [address] PCP - General Nephrology 07/26/23
--- OUTSIDE RECORDS SUMMARY | 2025-01-22 07:00 | XMS_ITS ---
Author Organization [facility] Address [address] [place] [address] Care Team Providers Care Airplane Pilot Crop Dusting Name Role Phone Luke Albright MD Primary Care Provider Isaiah Zaragoza [phone] REASON FOR VISIT acute gastric ulcer w/ hemorrage Problems Problem Type SNOMED Code ICD Code Onset Dates Problem Status W/U Status Risk Notes Problem Chronic gastritis (3324339) Chronic gastritis (K29.50) Active confirmed Encounters Encounter Location Date Provider Diagnosis [facility] [address] [place] [phone] 12/02/2023 Isaiah Benito Hiatal hernia K44. 9 and Chronic gastritis K29.50 Assessments Encounter Date Diagnosis (ICD Code) Assessment Notes Treatment Notes Treatment Clinical Notes Section Notes 12/02/2023 Hiatal hernia (ICD-10 - K44.9) 12/02/2023 Chronic gastritis (ICD-10 - K29.50) Plan Of Treatment No Information Progress Notes * SHANTI SELF DDOB:[birth year] (69 yo M)Acc No.[id number]:12/02/2023 EGD/MAC Patient:?SHANTI SELF Provider:?Isaiah Benito MD :1955???Age:68 Y???Sex:Male Dax e:12/02/2023 Address:[address] [place], [place] [phone] Pcp:Luke Albright MD Subjective: * Chief Complaints: * ???1. Acute gastric ulcer w/ hemorrage. * Medical History:? Objective: * Vitals:? Assessment: * Assessment: 1.?Hiatal hernia - K44.9 (Pr imary)???2.?Chronic gastritis - K29.50??? Plan: * Treatment: * Procedure Codes:?71241 UPPR GI ENDOSCOPY, DIAGNOSIS * * The named appointment provid er may or may not be the originator of this progress note, and it is not deemed complete until electronically signed by the appointment provider. Sign off status: Pending * Provider:?Isaiah Benito MD Date:? 024 Generated for Deni escobar/Wing/eTransmitting on:?01/22/2025 07:00 AM EDT
--- OUTSIDE RECORDS SUMMARY | 2025-01-22 07:00 | XMS_ITS ---
Author Organization [facility] Address [address] [place] [address] Care Team Providers Care Cargo And Container Inspector Name Role Phone Luke Albright Primary Care Provider Shayna Chung Unavailable [phone] Jacobo Facundo Unavailable [phone] Allergies No Known Allergies REASON FOR VISIT [...] 024 Encounters Encounter Location Date Provider Diagnosis [facility] [address] [place] [address] 03/12/2024 Facundo Centeno Tinea unguium B35.1 ; [...] Name:Shayna Baileyanders valadez, 01/28/2025 03:30:00 PM, [address] [place], [address], Procedure Notes * Category Sub-Category Detail Notes [...] as necessary. Patient chooses, no pharmaceutical tx (97522) Keratoma Treatment Parring or Cutting o f Benign Hyperkeratotic Lesion(s) 87184 ( >4 Lesions) - The Benign hyperkeratotic lesions, as described above were pared, and/or cut utilizing a sterile #15 blade, tissue nippers, and/or dremel Progress Notes * Divya NAILS SrDOB: (69 yo M)Acc No.[id number]:03/12/2024 Progress Note Patient:?Divya Nails Provider:?Facundo Centeno DPM :1955???Age:69 Y???Sex:Male Dax e:03/12/2024 Address:[address] [place], [place] [address] Pcp:Luke Albright Subjective: * Chief Complaints: * ??? Painful nail(s) aggrevat ed by shoes and causing difficulty standing/walking. * HPI: ???Painful Nails:?Pt States Last PCP Visit:?Date:?12/10/2023 ?Misc:?recent [place] 04/24/23.? * ROS:?General/Constitutional:?Nausea?denies.?Vomiting?denies.?Hunger Thirst?denies.?Loss appetite?denies.?Chills?denies.?Fatigue?denies.?Fever?denies.?Night Sweats?denies.?Unexplained weight [...] * Hospitalization/Major Diagno stic Procedure:?Patient went to [facility] for gout. 11/30/11Went to [facility] for sprained right ankle. 03/2013Patient went to [facility] for stitches in head. 08/2014pt went to [facility] for dislocated shoulder 07/07/15[facility] [place]constipation for 4 days given Meds 04/23/22[facility] - Stomach Issues 01/2023 * Family [...] wood,snow plow. ?Marital status: . 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 * Medications:?TakingAmmonium Lactate 12 % Cream 1 [...] as necessary. Patient chooses, no pharmaceutical tx (17586).?Keratoma Treatment:?Parring or Cutting of Benign Hyperkeratotic Lesion(s)?15945 ( >4 Lesions) - The Benign hyperkeratotic lesions, as described above were pared, and/or cut utilizing a sterile #15 blade, tissue nippers, and/or dremel.? * Procedure Codes:?65186 DEBRI DE NAIL, 6 OR MORE, Modifiers: XS 74763 TRIM SKIN LESIONS, OVER 4, Modifiers: XS * Follow Up:?3 Months * Images: * Sign off status: Completed true * Provider:?Facundo Centeno DPM Date:? 024 Generated for Deni escobar/Wing/eTarceliasmitting on:?01/22/2025 06:59 AM EDT History and Physical Notes * HPI (History of Present Illness) Category Sub-Category Detail Notes Category Not es Painful Nails Misc: recent [place] 04/24/23 Pt States Last PCP Visit: Date:: [...]
--- OUTSIDE RECORDS SUMMARY | 2025-01-22 07:00 | XMS_ITS ---
Author Organization [facility] Address [address] [place] [address] Care Team Providers Care Pillowcase Cutter Name Role Phone Luke Albright Primary Care Provider Shayna Chung Unavailable [phone] Allergies No Known Allergies REASON FOR VISIT [...] Polyneuropathy due to type 2 diabetes mellitus ([id number]) Type 2 diabetes mellitus with diabetic polyneuropathy (E11.42) Active confirmed Vital Signs Height 5ft9in in 09/16/2024 Weight 209 lbs 09/16/2024 BMI 30.86 kg/m2 09/16/2024 Blood pressure systolic 123 mm Hg 09/16/20 Blood pressure diastolic 79 mm Hg 024 Procedures Procedure Date Ordered Date Performed Result Body Sit e 22120-MLLNTKM NAIL, 6 OR MORE 09/16/2024 N/A 48004-WBHW SKIN LESIONS, OVER 4 09/16/2024 N/A Encounters Encounter Location Date Provider Diagnosis [facility] [address] [place] [address] 09/16/2024 Shayna Patel Type 2 diabetes mellitus with diabetic polyneuropathy E11.42 and Tinea unguium B35.1 Assessments Encounter Date Diagnosis (ICD Code) Assessment Notes Treatment Notes Treatment Clinical Notes Section Notes 09/16/2024 Type 2 diabetes mellitus with diabetic polyneuropathy (ICD-10 - E11.42) 09/16/2024 Tinea unguium (ICD-10 - B35.1) Plan Of Treatment Pending Test Test Name Order Date 84161-[id number] NAIL, 6 OR MORE 09/16/2024 57951-XMME SKIN LESIONS, OVER 4 09/16/20 24 Next Appt Details Follow Up: 3 Months, Reason: Provider Name:Shayna valadez, 01/28/2025 03:30:00 PM, [address] [place] [address], [phone], Procedure Notes * Category Sub-Category Detail Notes [...] use of a nail nipper and/or dremel-type centerless grinder tender, to a more viable healthy nail plate [...] to maintain effectiveness in symptomatic relief - 68314 Keratoma Treatment Parring or Cutting o f Benign Hyperkeratotic Lesion(s) (-57) More than 4 Lesions - The Benign hyperkeratotic lesions, ( __ ) in total, locations as stated and described in exam, were pared, and/or cut utilizing a sterile 15 blade, tissue nippers, and/or power dremel instrumentation - 54361 Progress Notes * Divya NAILS SrDOB: (69 yo M)Acc No.[id number]:09/16/2024 Progress Note Patient:?Divya NAILS Sr Provider:?Shayna Patel DPM :1955???Age:69 Y???Sex:Male Dax e:09/16/2024 Address:[address] [place], [place] [id number] Pcp:Luke Albright Subjective: * Chief Complaints: * [...] * Hospitalization/Major Diagno stic Procedure:?Patient went to [facility] for gout. 11/30/11Went to [facility] for sprained right ankle. 03/2013Patient went to [facility] ER for stitches in head. 08/2014pt went to [facility] ER for dislocated shoulder 07/07/15[facility] -constipation for 4 days given Meds 04/23/22[facility] - Stomach Issues 01/2023 * [...] wood,snow plow. ?Marital status: . 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 * Medications:?TakingExtra Dep th Diabetic Shoes with [...] gies Verified] Objective: * Vitals:?Ht:5ft9in, Wt:209, B NE:30.86, Shoe size:10.5, BP:123/79mm Hg, BS:119, Ht-cm: 175.26 [...] use of a nail nipper and/or dremel-type centerless grinder tender, to a more viable healthy nail plate [...] to maintain effectiveness in symptomatic relief - 79233.?Keratoma Treatment:?Parring or Cutting of Benign Hyperkeratotic Lesion(s)?(-57) More than 4 Lesions - The Benign hyperkeratotic lesions, ( __ ) in total, locations as stated and described in exam, were pared, and/or cut utilizing a sterile 15 blade, tissue nippers, and/or power dremel instrumentation - 26014.? * Procedure Codes:?89410 DEBRI DE NAIL, 6 OR MORE, Modifiers: XS 75302 TRIM SKIN LESIONS, OVER 4, Modifiers: XS * Follow Up:?3 Months * Images: * Sign off status: Completed true * Provider:?Shayna Patel DPM Date:?11/16/2023 Generated for Deni escobar/Wing/Aaron on:?01/22/2025 07:00 AM EDT History and Physical [...]
--- OUTSIDE RECORDS SUMMARY | 2025-01-22 07:01 | XMS_ITS ---
Author Organization [facility] Address [address] [place] [phone] Care Team Providers Care Public Health Inspector Name Role Phone Po Luke CRUZ Primary Care Provider Isaiah Zaragoza [phone] REASON FOR VISIT Review his med instructions for the 12/02 colonoscopy Encounters Encounter Location Date Provider Diagnosis [facility] [address] [place] [phone] 11/21/2023 Isaiah Benito Plan Of Treatment No Information Progress Notes * SHANTI SELF DDOB:[birth year] (68 yo M)Acc No.[id number]:11/21/2023 Patient:?SHANTI SELF :1955???Age:68 Y???Sex:Male Address:[address] [place] [address], [address] * true * Date:? Generated for Caprii luz/Wing/eTransmitting on:?01/22/2025 07:00 AM EDT
[2025-01-22 07:20] LABS: MANUAL DIFF FLAG NO
[2025-01-22 07:46] LABS: Basophils Percent Auto 0.5 % (0-2); Eosinophils Absolute Auto 0.2 X10*3/uL (0.0-0.4); Eosinophils Percent Auto 2.9 % (0-4); Hematocrit 46.4 % (42.0-52.0); Hemoglobin 14.4 g/dl (14.0-18.0); Imm Gran Abs Auto 0.03 X10*3/uL (0.00-0.03); Imm Gran Pct Auto 0.4 % (0.0-0.4); Lymphocytes Absolute Auto 1.6 X10*3/uL (1.2-4.9); Lymphocytes Percent Auto 20.6 % (20-40); Mean Corpuscular Hemoglobin 25.9 pg (27.0-33.0); Mean Corpuscular Volume 83.5 fL (80.0-98.0); Mean Platelet Volume 9.9 fL (9.4-12.4); Monocytes Absolute Auto 0.7 X10*3/uL (0.1-1.2); Monocytes Percent Auto 9.1 % (2-11); Neutrophils Absolute Auto 5.3 x10*3/uL (2.0-8.3); Neutrophils Percent Auto 66.5 % (45-73); Platelet Count 164 X10*3/uL (160-400); Red Blood Count 5.56 X10*6/uL (4.60-5.80); Red Cell Distribution Width 13.6 % (11.0-16.0); White Blood Count 7.9 X10*3/uL (4.8-10.8)
[2025-01-22 07:51] LABS: Estimated Average Glucose 163 mg/dL; Hemoglobin A1C 209.1359 umol/L; Hemoglobin A1c % 7.3 % (<6.0); Total Hemoglobin (HGBA1C) 3743.0678 umol/L
[2025-01-22 07:54] LABS: Appearance Urine Clear; Color Urine Yellow; Glucose Urine UA >=1000 mg/dL (Negative); Leukocyte Esterase Urine Negative (Negative); Nitrite Urine Negative (Negative); PH 6.5 (5.0-9.0); Specific Gravity - Urine 1.025 (1.005-1.025); UMIC TRIGGER UACC YES; Urine Blood Negative (Negative); Urine Ketones Negative (Negative); Urine Protein Negative (Neg-Trace)
[2025-01-22 08:00] LABS: Bacteria Urine None Seen (None Seen); Hyaline Casts Urine 0-2 /LPF (0-2); RBC Urine 0-2 /HPF (0-2); Squamous Epithelial Cell Urine 0-2 /HPF (0-2); WBC Urine 0-5 /HPF (0-5)
[2025-01-22 08:20] LABS: B Type Natriuretic Peptide 22 pg/mL (<100)
[2025-01-22 08:27] LABS: Alanine Aminotransferase 22 U/L (0-40); Albumin Level 4.3 g/dL (3.5-5.0); Alkaline Phosphatase 102 U/L (39-117); Anion Gap 11 (12-20); Aspartate Amino Transferase 26 U/L (5-37); Bilirubin Total 0.4 mg/dL (0.0-1.0); Blood Urea Nitrogen 22 mg/dL (9-16); Calcium 9.5 mg/dL (8.4-10.2); Carbon Dioxide 28 mmol/L (22-29); Chloride 107 mmol/L (96-108); Cholesterol 114 mg/dL (<200); Estimated Glomerular Filt Rate > 60; Glucose Random 149 mg/dL (60-115); HDL Cholesterol 33 mg/dL (>40); LDL Cholesterol Calculated 48 mg/dL (<100); Potassium 3.4 mmol/L (3.3-5.1); Sodium 143 mmol/L (135-145); Triglycerides 165 mg/dL (<150)
[2025-01-22 08:51] LABS: Free T4 (Free Thyroxine) 0.81 ng/dL (0.71-1.85); Thyroid Stimulating Hormone 0.86 uIU/mL (0.32-4.0)
[2025-01-22 08:56] LABS: Folate 9.2 ng/mL (> or = 4.0); Vitamin B12 442 pg/mL (200-900)
== END 2025-01-22 06:58 | disposition home or self-care (01) ==
LOC: HO.LAB 06:57
PROVIDERS: PCP Internal Medicine; Visit Provider Internal Medicine
DX: I11.0 Hypertensive heart disease with heart failure (principal); I50.22 Chronic systolic (congestive) heart failure; E78.00 Pure hypercholesterolemia, unspecified; G30.9 Alzheimer's disease, unspecified; F02.80 Dementia in other diseases classified elsewhere, unspecified severity, without behavioral disturbance, psychotic disturbance, mood disturbance, and anxiety
CPT/HCPCS: 36415; 80053; 80061; 81001; 82607; 82746; 83036; 83880; 84439; 84443; 85025

== ENCOUNTER 2025-03-11 14:00 | Outpatient (AMB) | payer MEDICARE, SELFPAY ==
[2023-09-19 08:02] VITALS: BP 140/52; BP 140/74; BMI 31.0
[2025-03-11 14:03] VITALS: BP 132/80; PULSE 78; O2SAT 96; BMI 30.9
--- NOTE | 2025-03-11 14:03 | A.OFFPC_ITS ---
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 Required: No Accompanied by: Self / Same As Patient Allergies amoxicillin Allergy (Severe, Verified 03/11/25 14:03) Diarrhea olmesartan Allergy (Unknown, Verified 03/11/25 14:03) Diarrhea Tobacco use date assessed: 03/11/25 Fall risk assessment: 1 Fall in past year Last assessed Fall Risk: 03/11/25 Dental Screening Dental Screen Date: 03/11/25 Did you have a dental visit in the last 12 months?: No Did you have a dental problem in the last 6 months where you did not have access to dental care?: No Was dental information given to patient?: No [facility] Medical History Chronic renal insufficiency Parkinson disease Alzheimer disease Leukocytosis Screening for prostate cancer Generalized anxiety disorder Diarrhea Anxiety and depression Type 2 diabetes mellitus with hyperglycemia Hypercholesterolemia GERD (gastroesophageal reflux disease) Vitamin D deficiency Obesity (BMI 30-39.9) Coronary artery disease Hypertension Humeral fracture Surgical History Hx of cardiac catheterization History of endoscopic gastrointestinal surgery History of colonoscopy History of coronary artery bypass graft History of umbilical hernia repair History of tonsillectomy History of repair of rotator cuff History of cholecystectomy Family History Father Lung cancer Mother Diabetes Hypertension Social History Household Members: Spouse Housing: House Do you presently have visiting nurse or other home services: No Alcohol intake: never Patient Tobacco Use Status: Never used Tobacco e-Cigarette/Vaping Use: Never Used Second Hand Smoke Exposure: No Advance Directives Date on File: 03/07/22 service: No Current occupational status: retired Cognitive needs: No Hearing needs: Yes Vision needs: Yes (glasses) Questionnaire PHQ-9 Over the last 2 weeks, how often have you been bothered by any of the following problems? 1. Little interest or pleasure in doing things: several days 2. Feeling down, depressed, or hopeless: several days 3. Trouble falling or staying asleep, or sleeping too much: several days 4. Feeling tired or having little energy: several days 5. Poor appetite or overeating: several days 6. Feeling bad about yourself - or that you are a failure or have let yourself or your family down: several days 7. Trouble concentrating on things, such as reading the newspaper or watching television: several days 8. Moving or speaking so slowly that other people could have noticed. Or the opposite - being so fidgety or restless that you have been moving around a lot more than usual: several days 9. Thoughts that you would be better off or of hurting yourself in some way: not at all Total score: 8 Depression Screening Interpretation: Positive Depression Screening Done: Yes 75516 - PHQ-9 Billing: Yes Source: Developed by Drs. Isaiah Han, Shanna Otero, Mike Flores and colleagues, with an educational filippo from [employer]. Thrive Questionnaire Date Thrive assessed: 03/11/25 I am a: Patient What is your living situation today?: I have a steady place to live Within the past 12 months, did the food you bought not last and you didn't have the money to get more?: Never true Within the past 12 months, did you worry whether your food would run out before you got money to buy more?: Never true Do you have trouble paying for medicines?: No Do you have trouble getting transportation to medical appointments?: No Do you have trouble paying your heating and electricity bill?: No Do you have trouble taking care of your child, family member or friend?: No Do you have trouble with day-to-day activities such as bathing, preparing meals, shopping, managing finances, etc.?: No Are you currently unemployed and looking for a job?: No Are you interested in more education?: No Please select the resources that you would like help with: None Currently or been in a relationship where the following occur: No concerns reported THRIVE Score: 0 AUDIT C Alcohol Use Questionnaire (AUDIT-C) 1. How often do you have a drink containing alcohol?: Never 3. How often do you have six or more drinks on one occasion?: Never Total Score: 0 Score Reviewed/Action Taken: Yes (Reviewed no action needed at this time) RHIANNA-7 AMB Questionnaire RHIANNA-7 Date HRIANNA - 7 assessed: 03/11/25 Feeling nervous, anxious, or on edge: 1 = Several days Not being able to stop or control worryin = Not at all Worrying too much about different things: 0 = Not at all Trouble relaxin = Not at all Being so restless that it is hard to sit still: 0 = Not at all Becoming easily annoyed or irritable: 0 = Not at all Feeling afraid as if something awful might happen: 0 = Not at all Total RHIANNA-7 score (0-4 normal; 5-9 mild; 10-14 moderate; 15-21 severe): 1 Source: Developed by Drs. Isaiah Han, Shanna Otero, Mike Flores and colleagues, with an educational filippo from [employer]. Physical exam (Primary Care) Vital Signs: Last Vital Signs Pulse 78 03/11/25 14:03 BP 132/80 03/11/25 14:03 Pulse Ox 96 03/11/25 14:03 Oxygen Delivery Method Room Air 03/11/25 14:03 BMI result Body Mass Index 30.9 Tobacco/Smoking Status: Tobacco use Status Tobacco use date assessed 03/11/25 03/11/25 14:07 Patient Tobacco Use Status Never used Tobacco 03/11/25 14:07 Tobacco use type 12/10/24 10:31 e-Cigarette/Vaping Use Never Used 03/11/25 14:07 PHQ-9: PHQ-9 Score PHQ-9: Total score 8 03/11/25 14:36 Depression Screening Interpretation: Positive Thrive Assessment: Date of Thrive Assessment Date Thrive assessed 03/11/25 03/11/25 14:07 Currently or been in a relationship where the following occur: No concerns reported Const General: alert; No acute distress Eyes Conjunctivae: conjunctivae normal Resp Auscultation: clear to auscultation bilaterally Cardio Rate: regular rate Rhythm: regular rhythm GI Inspection: Yes normal to inspection Extrem General: Yes normal to inspection and No edema Coding Level of Care Code Est Pt Level 4 (61841) Complex EM visit Add On G2211 Diagnoses Parkinson disease G20.A1 Alzheimer disease G30.9; F02.80 Chronic HFrEF (heart failure with reduced ejection fraction) I50.22 BPH with obstruction/lower urinary tract symptoms N40.1; N13.8 Type 2 diabetes mellitus with hyperglycemia, with long-term current use of insulin E11.65; Z79.4 Diabetes mellitus bed bug exterminator insulin use: with bed bug exterminator use Hypercholesterolemia E78.00 Obesity (BMI 30-39.9) E66.9 Coronary artery disease involving [place] coronary artery of [place] heart without angina pectoris I25.10 Associated angina: without angina Coronary Disease-Associated Artery/Lesion type: [place] artery [place] vs. transplanted heart: [place] heart Essential hypertension I10 Hypertension type: essential hypertension Facial dermatitis L30.9 Additional Codes PHQ-9 - 71395 - PHQ-9 Billing: Yes ([id number]) Assessment & Plan Assessment & Plan (1) Parkinson disease: Comment: neuro Dr. Corrales Code(s): G20.A1 - Parkinson's disease without dyskinesia, without mention of fluctuations Category: Medical Plan: Continue to follow-up with Neurology patient has the levodopa carbidopa. (2) Alzheimer disease: Comment: Neuro 06/2023 Code(s): G30.9 - Alzheimer's disease, unspecified; F02.80 - Dementia in other diseases classified elsewhere, unspecified severity, without behavioral disturbance, psychotic disturbance, mood disturbance, and anxiety Category: Medical Plan: Supportive treatment (3) Chronic HFrEF (heart failure with reduced ejection fraction): Code(s): I50.22 - Chronic systolic (congestive) heart failure Category: Medical Plan: Ejection fraction has normalized. Continue with furosemide 40 mg once a day. Weigh daily (4) BPH with obstruction/lower urinary tract symptoms: Comment: Ultrasound December 2022 Code(s): N40.1 - Benign prostatic hyperplasia with lower urinary tract symptoms; N13.8 - Other obstructive and reflux uropathy Category: Medical (5) Type 2 diabetes mellitus with hyperglycemia: Code(s): E11.65 - Type 2 diabetes mellitus with hyperglycemia Category: Medical Qualifiers: Diabetes mellitus snf insulin use: with bed bug exterminator use Qualified Code(s): E11.65 - Type 2 diabetes mellitus with hyperglycemia; Z79.4 - nursing home (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 Plan: Continue with monitoring. (6) Hypercholesterolemia: Code(s): E78.00 - Pure hypercholesterolemia, unspecified Category: Medical Plan: Avoid fried foods, chicken skin, eggs, butter margarine, pastries and meat. Be it pork or beef they have a lot of cholesterol LDL goal of less than 70 and triglyceride of less than 150 on rosuvastatin (7) Obesity (BMI 30-39.9): Code(s): E66.9 - Obesity, unspecified Category: Medical Plan: Noted weight loss. On Trulicity (8) Coronary artery disease: Code(s): I25.10 - Atherosclerotic heart disease of [place] coronary artery without angina pectoris Category: Medical Qualifiers: Associated angina: without angina Coronary Disease-Associated Artery/Lesion type: [place] artery [place] vs. transplanted heart: [place] heart Qualified Code(s): I25.10 - Atherosclerotic heart disease of [place] coronary artery without angina pectoris Plan: Control the cholesterol, weight, blood pressure, diabetes on aspirin 81 mg once a day (9) Hypertension: Code(s): I10 - Essential (primary) hypertension Category: Medical Qualifiers: Hypertension type: essential hypertension Qualified Code(s): I10 - Essential (primary) hypertension Plan: Continue with blood pressure medication. Decrease salt intake and exercise takes amlodipine 5 mg once a day metoprolol 200 mg once a day (10) Facial dermatitis: Code(s): L30.9 - Dermatitis, unspecified Category: Medical Plan History of Present Illness The patient is a 70-year-old male presenting with diabetes mellitus and hypertension for follow-up. He has a noted 11-pound weight loss. His clinical history involves chronic conditions like coronary artery disease, treated with medications, and hypercholesterolemia. His blood pressure is controlled with an antihypertensive regimen. Diabetes management includes medications such as Trulicity, Farxiga, glipizide, and insulin, with his last hemoglobin A1c at 7.3%. The patient has benign prostatic hyperplasia, obstructive sleep apnea, and chronic kidney disease, with additional cerebrovascular concerns like Parkinson's disease and Alzheimer's dementia. A history of tubular adenoma of the colon was also noted. Previous episodes of cardiomyopathy and congestive heart failure revealed an ejection fraction of 30-35%, but recent improvements show normalizations as per cardiac evaluations. Health Maintenance - Weight management noted with an intentional 11-pound weight loss - LDL goal set to less than 100 with current reading at 48 - Routine follow-up with podiatry and dermatology - Vaccinations up to date: tetanus and shingles - Scheduled blood work every 2 to 3 months due to diuretic use Social History - The patient attempts to walk daily and manages a healthy diet - Reported trying to be careful due to potential fall risk during walks - Has seen a podiatry specialist regularly Review of Systems - General: Reports weight loss - Cardiovascular: Denies swelling - Endocrine: Reports blood sugar levels being around 120-130 - Neurological: Denies falls; reports ambulation Physical Exam Results - Labs: Mildly low potassium at 3.4, creatinine of 1.1, hemoglobin A1c is 7.3 - Tests: Recent echocardiogram with ejection fraction of 55-60% - Diagnostics: Normal blood count, normal sodium, liver function is fine, triglyceride 165, LDL of 48 Plan The management plan includes increasing the dose of Trulicity to 3 mg weekly for better glycemic control while monitoring blood glucose levels to prevent hypoglycemic events. Essential hypertension is managed with amlodipine and metoprolol. LDL cholesterol control is maintained with rosuvastatin, and furosemide is continued for heart failure management, with a daily weight monitoring recommendation. Follow-up laboratory tests are advised every two to three months, considering diuretic therapy. Regular follow-ups with podiatry, neurology, cardiology, and dermatology are to be maintained. Routine exercise and dieting are encouraged to manage obesity and chronic conditions. Patient was informed and verbally consented to the use of an ambient scribe for clinic note documentation during this visit. Discussion Notes I reviewed the patient's conditions, emphasizing the importance of maintaining controlled blood sugar levels and hypertension. Discussed the adjustment in diabetes medication, including the benefits and risks of increased Trulicity dosage. The patient was informed about the target LDL levels and the importance of statin therapy. We discussed ongoing monitoring needs due to the prescribed diuretics and the necessary follow-ups with relevant specialists. I advised on consistent physical activity while mitigating fall risk and acknowledged the adherence to routine medical care and check-ups. Patient Instructions - Monitor your blood sugar levels regularly and report any readings that drop too low. - Continue with your current prescribed medications for diabetes, hypertension, and heart failure as discussed. - Aim to walk daily, but be cautious to avoid falls, particularly when it's wet outside. - Maintain a healthy eating regimen. - Schedule and complete routine lab work every 2 to 3 months. - Keep regular follow-up appointments with specialists as directed. - Ensure to stay up to date with vaccinations. - Contact the office if any new symptoms or concerns arise. Orders: Orders Comprehensive Met. Panel Today E11.65 - Type 2 diabetes mellitus with hyperglycemia, Z79.4 - nursing home (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 B Type Natriuretic Peptide Today E11.65 - Type 2 diabetes mellitus with hyperglycemia, Z79.4 - parts counterman (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 Magnesium Today E11.65 - Type 2 diabetes mellitus with hyperglycemia, Z79.4 - parts counterman (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 Complete Blood Count Auto Diff Today E11.65 - Type 2 diabetes mellitus with hyperglycemia, Z79.4 - nursing home (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 Referrals Dermatology Referral L30.9 - Dermatitis, unspecified Medications: Changed From dulaglutide (Trulicity) 1.5 mg (0.5 mL) subcut QWEEK 2 mL 12RF E11.65 - Type 2 diabetes mellitus with hyperglycemia, Z79.4 - parts counterman (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 To dulaglutide 3 mg (0.5 mL) subcut QWEEK 2 mL 2RF E11.65 - Type 2 diabetes mellitus with hyperglycemia, Z79.4 - parts counterman (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
--- OUTSIDE RECORDS SUMMARY | 2025-03-11 14:08 | XMS_ITS ---
Author Organization [facility] Address [address] [place] [phone] Care Team Providers Care Pediatric Orthodontist Name Role Phone Po Luke CRUZ Primary Care Provider Isaiah Zaragoza [phone] Encounters Encounter Location Date Provider Diagnosis [facility] [address] [place] [phone] 11/05/2023 Isaiah Benito Plan Of Treatment No Information Progress Notes * SHANTI SELF DDOB:[birth year] (68 yo M)Acc No.[id number]:11/05/2023 Patient:?SHANTI SELF :1955???Age:68 Y???Sex:Male Address:[address] [place] [address], [address] * true * Date:? Generated for Deni escobar/Wing/eTransmitting on:?03/11/2025 02:08 PM EDT
== END 2025-03-11 14:45 | disposition home or self-care (01) ==
LOC: HO.HMCH 14:01
PROVIDERS: PCP Internal Medicine; Visit Provider Internal Medicine
DX: G20.A1 Parkinson's disease without dyskinesia, without mention of fluctuations (principal); G30.9 Alzheimer's disease, unspecified; F02.80 Dementia in other diseases classified elsewhere, unspecified severity, without behavioral disturbance, psychotic disturbance, mood disturbance, and anxiety; I50.22 Chronic systolic (congestive) heart failure; E11.65 Type 2 diabetes mellitus with hyperglycemia; Z79.4 Long term (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; N40.1 Benign prostatic hyperplasia with lower urinary tract symptoms; N13.8 Other obstructive and reflux uropathy; E78.00 Pure hypercholesterolemia, unspecified; E66.9 Obesity, unspecified; I25.10 Atherosclerotic heart disease of native coronary artery without angina pectoris; I10 Essential (primary) hypertension; L30.9 Dermatitis, unspecified

== ENCOUNTER → 2025-03-11 14:00 | Outpatient (BNVA) | payer MEDICARE, SELFPAY ==
[2023-09-19 08:02] VITALS: BP 140/52; BP 140/74; BMI 31.0
== END ==
PROVIDERS: PCP Internal Medicine; Visit Provider Internal Medicine
DX: G20.A1 Parkinson's disease without dyskinesia, without mention of fluctuations (principal); G30.9 Alzheimer's disease, unspecified; F02.80 Dementia in other diseases classified elsewhere, unspecified severity, without behavioral disturbance, psychotic disturbance, mood disturbance, and anxiety; I11.0 Hypertensive heart disease with heart failure; I50.22 Chronic systolic (congestive) heart failure; N40.1 Benign prostatic hyperplasia with lower urinary tract symptoms; N13.8 Other obstructive and reflux uropathy; E11.65 Type 2 diabetes mellitus with hyperglycemia; E78.00 Pure hypercholesterolemia, unspecified; E66.9 Obesity, unspecified; I25.10 Atherosclerotic heart disease of native coronary artery without angina pectoris; L30.9 Dermatitis, unspecified; Z79.4 Long term (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
CPT/HCPCS: 96127; 99212

== ENCOUNTER 2025-05-19 09:25 | Outpatient (AMB) | payer MEDICARE, SELFPAY ==
[2023-09-19 08:02] VITALS: BP 140/52; BP 140/74; BMI 31.0
[2025-05-19 09:18] VITALS: BP 140/60; PULSE 97; O2SAT 96; BMI 31.2
--- NOTE | 2025-05-19 09:18 | A.OFFVIS_ITS ---
Vital Signs 05/19/25 09:18 Height 5 ft 9 in Weight 211 lb BMI 31.2 BP 140/60 H Blood Pressure Location Rt brachial Position Sitting Pulse 97 Pulse Source Pulse Oximeter Pulse Oximetry (%) 96 Oxygen Delivery Method Room Air Intake Visit Reasons: INP-Parkinson Last Remodeler Repairer Required: No Accompanied by: Spouse Allergies amoxicillin Allergy (Severe, Verified 05/19/25 09:30) Diarrhea olmesartan Allergy (Unknown, Verified 05/19/25 09:30) Diarrhea Medication List - Last Reconciled 05/19/25 by Shazia Ascencio MD acetaminophen 500 mg PO Q6H PRN amlodipine 5 mg PO DAILY aspirin 81 mg PO DAILY blood pressure monitor (Blood Pressure Kit) As directed blood sugar diagnostic (OpenGov Solutionsuch Ultra Test strips) As directed blood-glucose meter (Profitably Ultra2 Meter) As directed carbidopa-levodopa 25-100 mg 1 tab PO TID 90 days dapagliflozin propanediol (Farxiga) 10 mg PO DAILY diclofenac sodium 1% 4 grams topical QID dulaglutide 3 mg (0.5 mL) subcut QWEEK ezetimibe (Zetia) 10 mg PO DAILY furosemide 40 mg PO DAILY glipizide ER 5 mg PO DAILY 30 days insulin glargine (Basaglar KwikPen U-100 Insulin) 23 units (0.23 mL) subcut DAILY isosorbide mononitrate ER 30 mg PO DAILY lancets (PROVENTIX SYSTEMSTouch UltraSoft Lancets) Testing 4 times a day lancets (PROVENTIX SYSTEMSTouch Delica Plus Lancet) As directed check the BS TID lidocaine 4% 1 patch topical DAILY PRN metoprolol succinate ER 200 mg PO DAILY mirtazapine 7.5 mg PO BEDTIME pen needle, diabetic (1st Tier Unifine Pentips) As directed inject insulin 4 times a day pen needle, diabetic (BD Ultra-Fine Micro Pen Needle) test 4 times per day rosuvastatin 40 mg PO BEDTIME sertraline 25 mg PO DAILY sucralfate 1 g PO QIDACHS 90 days HPI Comments Details: 70y/o male comes for neurological evaluation.He is accompanied by his who helps with history. 2 years he had a lot of medical issues, diabetes, kidney issues, bleeding ulcer, anemia, CHF . His PCP was cocnerned about gen slowing and weakness. His was concerned about his stooped and shuffling gait. He starte dhaving tremors in his left hand. He wa sseen by Dr. Cochran and was diagnosed iwth Parkinsons disease . He was started on carbidopa/levodopa which helped. But he has not ahd a follow up with a neurologist santana grayson .He is stable now.He also had triple bypass in 2000 and is stable now. Memory-short term memory is not good Sleep-talks yells in sleep, snores , sleep study was normal as per patient Mood- anxiety , irritable , confused Speech-softer No drooling, has word finding difficulty Handwriting- sloppy , now micrographia Using utensils- difficult dressing and shower- slower Turning in bed- he fell out of bed several times - has a rail now Gait-stooped, slow , no recent falls Not sure about hallucinations No double vision , no dizziness. [facility] Medical History (Updated 05/19/25 @ 10:33 by Shazia Ascencio MD) Hypersomnia Snoring REM behavioral disorder Chronic renal insufficiency Parkinson disease Alzheimer disease Leukocytosis Screening for prostate cancer Generalized anxiety disorder Diarrhea Anxiety and depression Type 2 diabetes mellitus with hyperglycemia Hypercholesterolemia GERD (gastroesophageal reflux disease) Vitamin D deficiency Obesity (BMI 30-39.9) Coronary artery disease Hypertension Humeral fracture Surgical History Hx of cardiac catheterization History of endoscopic gastrointestinal surgery History of colonoscopy History of coronary artery bypass graft History of umbilical hernia repair History of tonsillectomy History of repair of rotator cuff History of cholecystectomy Family History Father Lung cancer Mother Diabetes Hypertension Social History Household Members: Spouse Housing: House Do you presently have visiting nurse or other home services: No Alcohol intake: never Patient Tobacco Use Status: Never used Tobacco e-Cigarette/Vaping Use: Never Used Second Hand Smoke Exposure: No Advance Directives Date on File: 03/07/22 service: No Current occupational status: retired Cognitive needs: No Hearing needs: Yes Vision needs: Yes (glasses) Physical Exam Vital Signs: Last Vital Signs Pulse 97 05/19/25 09:18 BP 140/60 H 05/19/25 09:18 Pulse Ox 96 05/19/25 09:18 Oxygen Delivery Method Room Air 05/19/25 09:18 BMI result Body Mass Index 31.2 Const General: cooperative, comfortable and no acute distress Nutritional Appearance: overweight Orientation/consciousness: patient oriented x3 Eyes Pupils: Equal, round and reactive pupils present Neuro Other: Mild left hand rest tremors Cog wheel rigidity - max L>R FFM and foot taps - decreased max L>R Facial expression - decreased Blink decreased Speech mild dysprosody Decreased shoulder shrug Gait stooped, no arm swing on the left decreased on the right General: patient oriented x3, moves all extremities and no focal motor deficits Cranial nerves: Yes Facial sensation intact/muscles of mastication intact, Yes Equal, round and reactive pupils present, Yes Bilaterally intact EOM present, Yes Nystagmus not present, Yes Normal facial strength present, Yes Midline tongue present and Yes Symmetric palate elevation present Cognition (Neuro): normal cognition Motor exam (neuro): 5/5 motor strength present throughout Deep tendon reflexes (DTR's): Right triceps reflex intensity grade: 1+, Left triceps reflex intensity grade: 1+, Rt Biceps (C5, C6): 1+, Left biceps reflex intensity grade: 1+, Right brachioradialis reflex intensity grade: 1+, Left brachioradialis reflex intensity grade: 1+, Right patellar reflex intensity grade: 1+ and Left patellar reflex intensity grade: 1+ Coordination: psetjn-by-roer test normal Psych Appearance: grossly normal Orientation What is the (year) (season) (date) (day) (month)?: year, season, date, day and month Where are we (state) (county) (town or city) (hospital) (floor)?: state, county, town or city, hospital/clinic and floor Registration Name of 3 unrelated objects clearly and slowly, then ask patient to repeat all 3 of them. (1st repeat determines score. Make sure they can repeat all three): object 1, object 2 and object 3 Attention & Calculation (CHOOSE ONE) Spell WORLD backwards (DLROW): 3 letters Recall Ask patient to repeat the 3 items from question #3.: object 1 and object 2 Language Show patient a wristwatch & ask what it is. Repeat for pencil.: watch and pencil Ask the patient to repeat the phrase 'No ifs, ands, or buts' after you.: correct Ask the patient to 'take a piece of paper with their right hand' 'fold paper in half' 'place paper on floor': take paper in right hand, fold paper in half and place paper on floor Score Score: 24 Results Reviewed Results Reviewed: 2022 MRI Brain No retrocochlear pathology. 2. Small chronic lacunar infarct within the left centrum semiovale and chronic cortical/subcortical infarct in the right parietal lobe. 3. No acute intracranial process or pathologic intracranial enhancement. 4. Slight proptosis likely on the basis of increased intraorbital fat deposition which may be seen in the setting of chronic exogenous steroid use for thyroid eye disease and can be correlated clinically. 5. Leftward nasal septal deviation with leftward bony spur impinging on the left inferior nasal turbinate. Assessment & Plan Assessment & Plan (1) Parkinson disease: Comment: Bradykinesia, tremors and cog wheel rigidity Code(s): G20.A1 - Parkinson's disease without dyskinesia, without mention of fluctuations Category: Medical Qualifiers: Dyskinesia presence: without dyskinesia Fluctuating manifestations: without fluctuating manifestations Qualified Code(s): G20.A1 - Parkinson's disease without dyskinesia, without mention of fluctuations (2) REM behavioral disorder: Code(s): G47.52 - REM sleep behavior disorder Category: Medical Plan Discussed the diagnosis in detail . I suggested he continue carbidopa/levodopa 25/100 tid I will refer him to PT for parkinsons specific therapy. Sleep study to further evaluate for sleep apnea. Melatonin 5 mg qhs for REM behavior disorder- will consider clonazepam if he does not respond. Orders: Orders PT Evaluation and Treatment Today G20.A1 - Parkinson's disease without dyskinesia, without mention of fluctuations RT PSG in-lab sleep study Today G47.10 - Hypersomnia, unspecified, G47.52 - REM sleep behavior disorder, R06.83 - Snoring Medications: New melatonin 5 mg PO .qhs 90 caps 3RF Coding Level of Care Code New Pt Level 4 (61772) Complex EM visit Add On G2211 Diagnoses Parkinson's disease without dyskinesia or fluctuating manifestations G20.A1 Dyskinesia presence: without dyskinesia Fluctuating manifestations: without fluctuating manifestations REM behavioral disorder G47.52
--- OUTSIDE RECORDS SUMMARY | 2025-05-19 09:54 | XMS_ITS | Clinical Summary ---
Author Organization [facility] Address [address] [address] Phone Care Team Providers Care Cold Roll Inspector Name Role Phone Tomas Dumont MD Primary Care Provider [phone] Allergies No known active allergies Medications amLODIPine [...] evening and 1 tablet before bedtime. 06/03/20 Active furosemide (LASIX) 40 MG tablet Take 1 tablet (40 mg total) by mouth every other day 06/14/20 Active isosorbide mononitrate (IMDUR) 30 MG 24 hr tablet Take 2 tablets (60 mg total) by mouth 1 (one) time each day 06/14/20 Active Farxiga 10 MG tablet TAKE ONE TABLET BY MOUTH EVERY DAY 90 tablet 2 12/29/19 Active hydrALAZINE (APRESOLINE) 10 MG tabletIndicatio ns:Hypertension ,Stage 3a chronic kidney disease (HCC),Stage 3b chronic kidney disease (HCC) TAKE ONE TABLET BY MOUTH EVERY MORNING AND TAKE ONE TABLET BY MOUTH EVERY EVENING 60 tablet 3 03/23/20 Active Active Problems Problem Noted Date Diagnosed Date Stage 3b chronic kidney disease 07/26/2023 Type 2 diabetes mellitus wit h diabetic chronic kidney disease 07/26/2023 Renal osteodystrophy 07/26/2023 Chronic kidney disease 06/14/2023 Stage 3a chronic kidney disease 06/14/2023 Acute nontraumatic kidney injury, not otherwise specified 06/14/2023 Hypertension 06/14/2023 Encounters Date Type Department Care Team Description 03/21/2025 Refill [facility] [address] [address] Tomas Dumont MD Hypertension; Stage 3a chronic kidney disease (HCC); [...] Visit [facility] [address] [place] [address] [place] [address] Tomas Dumont MD [address] [facility] [address] [place] [address] Health Maintenance Due Date Last Done Comments Pneumococcal Vaccine: 50+ Ye ars (1 of 2 - PCV) 1973 Colorectal Cancer Screening: Annual FOBT 2003 Colorectal Cancer Screening: Colonoscopy 2003 Colorectal Cancer Screening: Sigmoidoscopy 2003 Diabetes: Ophthalmology Exam 07/24/2023 Diabetes: Pedal Pulse Checked 07/24/2023 Diabetes: Sensory Foot Exam 07/24/2023 Diabetes: Visual Foot Exam 07/24/2023 Diabetes: Hemoglobin A1C 06/26/2024 03/26/2024 Influenza Vaccine (#1) 2025 07/15/2015 Hepatitis B Vaccine Aged Out No longe [...] Hemoglobin A1C 6.0 4.0 - 6.0 03/26/2024 Historical Provider LAB BLOOD ORDERABLES Lisa l Result from Last 3 Months or Most Recently Relevant to Health Maintenance Insurance Medicare [facility] Medicare [facility] Care Teams Cold Roll Inspector Relationship Specialty Start Date End Date Tomas Dumont MD [address] [address] PCP - General Nephrology 07/26/23
--- OUTSIDE RECORDS SUMMARY | 2025-05-19 09:55 | XMS_ITS | Patient Health Record ---
Author Organization [facility] Address [address] [place] [address] Care Team Providers Care Joint Cleaning Machine Operator Name Role Phone Po Luke CRUZ Primary Care Provider Isaiah Zaragoza [phone] Allergies Allergen (clinical drug ingredient) Drug/Non Drug [...] Problem Status W/U Status Risk Notes Problem 218804683 Encounter for screening for malignant neoplasm of colon (Z12.11) Active confirmed Problem 860437573 History of adenomatous polyp of colon (Z86.010) Active confirmed Problem 32778848 Diarrhea (R19.7) Active confirmed Problem 97257006 Acute gastric ulcer with hemorrhage (K25.0) Active confirmed Problem 193105410 Irritable bowel syndrome with diarrhea (K58.0) Active confirmed Problem Chronic gastritis (4023236) Chronic gastritis (K29.50) Active confirmed Problem 87046384 Diarrhea, unspecified type (R19.7) Active confirmed Problem Diverticulosis of sigmoid colon (823463265) Diverticulosis of sigmoid colon (K57.30) Active confirmed Problem 35423913 Incontinence of feces, unspecified fecal incontinence type (R15.9) Active confirmed Problem Gastric ulcer (366211729) Gastric ulcer (K25.9) Active confirmed Plan Of [...] [place] [address] [place] [address] [id number] CARLOS RangelLEXISEN Self - patient is the insured [employer] [address] [place] [address] [id number] CARLOS RangelSHANTI Self - patient is the insured Medical (General) History Medical History History ICD Code CAD with CABG as below--no history of [place] NIDDM Denies [place],CVA,Lung disease,renal disease HTN Hyperlipidemia Colonoscopy 02/2012--hyperpla stic [...]
--- OUTSIDE RECORDS SUMMARY | 2025-05-19 09:55 | XMS_ITS | Patient Health Record ---
Author Organization [facility] [place] Address [address] [place] [address] Care Team Providers Care Support Associate Name Role Phone Luke Albright Primary Care Provider Shayna Chung Unavailable [phone] Jacobo Facundo Unavailable [phone] Allergies No Known Allergies Reason For Referral No Information Medications Medication SIG (Take, Route, Frequency, Duration) Notes Start Date End Date Status Metformin & Diet Manage Prod Not-Taking Glimepiride 4 MG Oral Once a day Active Econazole Nitrate 1 % 1 application to affected area Externally Once a day; Duration: 30 days 09/12/2015 Not-Taking hydroCHLOROthiazide Active Tolnaftate 1 % Externally Twice a day 03/08/2014 Not-Taking Insulin Cartridge 3ML Active Metoprolol Tartrate 100 MG Oral Not-Taking Ammonium Lactate 12 % 1 application Externally Twice a day; Duration: 30 days 11/16/2020 Active Extra-Depth Diabetic Shoes with 3 Pair Custom heat-molded multi-density innersoles . 1pair shoes/3sets inserts . .; Duration: 1 year Active amLODIPine Besylate Active Extra Depth Orthopedic Shoes (1 Pair) with Customized Heat Molded Multidensity Innersoles (3 Pair) as directed Dx: NIDDM/Polyneuropathy (E11.42), Hammertoe Foot Deformity (M20.41,M20.42), Preulcerative Skin Lesion(s) (L85.1 01/28/2025 Active Atorvastatin Calcium 10 MG Oral Once a day Active Extra Depth Diabetic Shoes with 3 Pair Custom heat-molded multi-density innersoles for 1 year Dx: 11/16/2020 Not-Taking Fenofibrate 160 MG 1 tablet Oral Once a day Active Lisinopril Active Tolnaftate 1 % 1 application to affected area Externally Twice a day; Duration: 30 days Not-Taking Loratadine 10 mg Once a day Ac tive Metoprolol Succinate Active Extra Depth Diabetic Shoes with 3 Pair Custom heat-molded multi-density innersoles for 1 year Dx: Active Simvastatin Active Immunizations Vaccine Route Administration Date Status Comme nts Influenza Unknown 07/10/2016 Administered Influenza Unknown 09/10/2017 Administered Influenza Unknown 09/29/2018 Administered Influenza Unknown 09/20/2019 Administered Influenza Unknown 09/20/2022 Administered Influenza Unknown 08/21/2023 Administered Influenza Unknown 07/21/2024 Administered Pneumococcal Unknown 07/25/2015 Administered COVID-19 Moderna Vaccine Unknown 11/01/2021 Administere d 1st 12/29/2020 2nd 01/26/2021 Social History Tobacco use other than smoking: Question Answer Notes Are you an other tobacco user? No Tobacco Control (Standard) Question Answer Notes Additional Findings: Tobacco non-user Current no nsmoker AUDIT-C (Standard) Question Answer Notes Did you have a drink containing alcohol in the p ast year? No Points 0 Interpretation Negative Problems Problem Type SNOMED Code ICD Code Onset Dates Problem Status W/U Status Risk Notes Problem Polyneuropathy due to type 2 diabetes mellitus (906727407) Type 2 diabetes mellitus with diabetic polyneuropathy (E11.42) Active confirmed Vital Signs Blood pressure diastolic 65 mm Hg 05/10/2025 Height 5ft9in in 05/10/2025 Blood pressure systolic 128 mm Hg 05/10/2025 Weight 209 lbs 05/10/2025 BMI 30.86 kg/m2 05/10/2025 Procedures Procedure Date Ordered Date Performed Result Body Sit e 61706-BVRJJST NAIL, 6 OR MORE 09/16/2024 N/A 60881-ZPQT SKIN LESIONS, OVER 4 09/16/2024 N/A 44139-WYDOHQT NAIL, 6 OR MORE 01/28/2025 N/A 72505-LERL SKIN LESIONS, OVER 4 01/28/2025 N/A Encounters Encounter Location Date Provider Diagnosis [facility] [address] [place] [address] 06/11/2024 Facundo Centeno Tinea unguium B35.1 ; Ingrowing nail L60.0 ; Type 1 diabetes mellitus with diabetic polyneuropathy E10.42 ; Pain in right toe(s) M79.674 ; Pain in left toe(s) M79.675 ; Xerosis cutis L85.3 ; Tinea pedis B35.3 ; Other hammer toe(s) (acquired), left foot M20.42 and Other hammer toe(s) (acquired), right foot M20.[address] [address] 09/16/2024 Shayna Patel Type 2 diabetes mellitus with diabetic polyneuropathy E11.42 and Tinea unguium B35.[address] [address] 01/28/2025 Shayna Patel Other hammer toe(s) (acquired), right foot M20.41 ; Other hammer toe(s) (acquired), left foot M20.42 ; Type 2 diabetes mellitus with diabetic polyneuropathy E11.42 and Tinea unguium B35.[address] [address] 05/10/2025 Shayna Patel Type 2 diabetes mellitus with diabetic polyneuropathy E11.42 and Tinea unguium B35.[address] [address] 04/22/2025 Shayna Patel Assessments Encounter Date Diagnosis (ICD Code) Assessment Notes Treatment Notes Treatment Clinical Notes Section Notes 06/11/2024 Tinea unguium (ICD-10 - B35.1) 09/16/2024 Type 2 diabetes mellitus with diabetic polyneuropathy (ICD-10 - E11.42) 09/16/2024 Tinea unguium (ICD-10 - B35.1) 01/28/2025 Other hammer toe(s) (acquired), right foot (ICD-10 - M20.41) Patient Educated with: DIABETIC FOOT CARE INSTRUCTIONS. pdf (DIABETIC FOOT CARE INSTRUCTIONS. pdf) 01/28/2025 Other hammer toe(s) (acquired), left foot (ICD-10 - M20.42) 05/10/2025 Type 2 diabetes mellitus with diabetic polyneuropathy (ICD-10 - E11.42) 05/10/2025 Tinea unguium (ICD-10 - B35.1) 01/28/2025 Type 2 diabetes mellitus with diabetic polyneuropathy (ICD-10 - E11.42) 06/11/2024 Ingrowing nail (ICD-10 - L60.0) 01/28/2025 Tinea unguium (ICD-10 - B35.1) 06/11/2024 Type 1 diabetes mellitus with diabetic [...] Treatment Pending Test Test Name Order Date 13367-GFXXWIP NAIL, 6 OR MORE 08/06/2011 44443-RSDGSIC NAIL, 6 OR MORE 12/03/2011 02992-KPEOYHI NAIL, 6 OR MORE 02/18/2012 17855-MHNJSER NAIL, 6 OR MORE 05/19/2012 28287-YKKKRWA NAIL, 6 OR MORE 08/04/2012 84386-VOQKDYX NAIL, 6 OR MORE 11/03/2012 59662-DXDAOOB NAIL, 6 OR MORE 02/02/2013 66293-VOORUYW NAIL, 6 OR MORE 05/18/2013 20603-FSKDZAT NAIL, 6 OR MORE 09/02/2013 15432-JXDDOWF NAIL, 6 OR MORE 12/03/2013 39464-SXWKFDT NAIL, 6 OR MORE 03/08/2014 77032-UYMAEAC NAIL, 6 OR MORE 06/09/2014 86332-AIYRKVE NAIL, 6 OR MORE 09/13/2014 14672-GBKWYWN NAIL, 6 OR MORE 12/13/2014 75855-FOFFRRU NAIL, 6 OR MORE 03/16/2015 10991-VCCMFPA NAIL, 6 OR MORE 06/16/2015 14705-GSQAQGL NAIL, 6 OR MORE 09/12/2015 97297-KOZTVXD NAIL, 6 OR MORE 12/12/2015 06551-CZWNXHR NAIL, 6 OR MORE 03/15/2016 99773-TYGESRX NAIL, 6 OR MORE 06/13/2016 88894-WIIKKZW NAIL, 6 OR MORE 09/12/2016 71435-IPHNCMM NAIL, 6 OR MORE 12/19/2016 35306-MFQHBZL NAIL, 6 OR MORE 03/20/2017 91169-EZDPECZ NAIL, 6 OR MORE 06/20/2017 32906-RCJCDBO NAIL, 6 OR MORE 09/18/2017 31293-RODCAPE NAIL, 6 OR MORE 12/23/2017 09731-ZVIQFXR NAIL, 6 OR MORE 03/24/2018 92580-UKPGGYX NAIL, 6 OR MORE 06/25/2018 89542-FPRIHIV NAIL, 6 OR MORE 09/24/2018 59205-UFGHEUU NAIL, 6 OR MORE 09/16/2024 07182-CLVISIQ NAIL, 6 OR MORE 01/28/2025 83595-Exfbwyrf Plate 06/09/2014 58132-Gloxpnfa Plate 12/13/2014 67339-Uityjryi Plate 11/03/2012 35476-Woprfesd Plate 08/04/2012 02596-Rsrsykxo Plate 02/18/2012 68177-Ooxiyzah Plate 05/19/2012 52238-Uneooaop Plate 12/03/2011 57375-Djmptzwp Plate 08/06/2011 86632- Debride <25 sq cm 12/13/2014 67768-GAAA SKIN LESIONS, OVER 4 09/13/20 14 30819-URKE SKIN LESIONS, OVER 4 06/09/20 14 73510-SOER SKIN LESIONS, OVER 4 03/08/20 14 46653-YTFE SKIN LESIONS, OVER 4 12/03/19 14 80072-CKHY SKIN LESIONS, OVER 4 09/02/20 13 49537-CYHS SKIN LESIONS, OVER 4 05/18/20 13 56987-IXND SKIN LESIONS, OVER 4 02/03/20 13 73798-BJNO SKIN LESIONS, OVER 4 11/03/19 13 56312-QFIA SKIN LESIONS, OVER 4 12/13/19 15 75602-LYCL SKIN LESIONS, OVER 4 03/16/20 15 76960-WZLW SKIN LESIONS, OVER 4 09/12/20 15 05664-VBAL SKIN LESIONS, OVER 4 06/16/20 15 22609-NAMG SKIN LESIONS, OVER 4 09/12/20 16 89358-EHMV SKIN LESIONS, OVER 4 06/13/20 16 93972-HXFL SKIN LESIONS, OVER 4 03/15/20 16 33582-OUEF SKIN LESIONS, OVER 4 12/12/19 16 30974-KPBP SKIN LESIONS, OVER 4 09/24/20 18 49008-PIJI SKIN LESIONS, OVER 4 06/25/20 18 85373-FLQW SKIN LESIONS, OVER 4 03/24/20 18 23184-QKGV SKIN LESIONS, OVER 4 12/24/19 18 32584-BOBU SKIN LESIONS, OVER 4 09/18/20 17 91434-ZMZN SKIN LESIONS, OVER 4 12/20/19 17 60038-KEGB SKIN LESIONS, OVER 4 01/29/20 98206-PTOK SKIN LESIONS, OVER 4 09/16/20 24 72393-BENS SKIN LESIONS, OVER 4 12/25/19 19 38739-IWQA SKIN LESIONS, OVER 4 03/25/20 19 07322-UCOA SKIN LESIONS, OVER 4 07/02/20 19 71003-UFQW SKIN LESIONS, OVER 4 10/05/20 19 99699-NSPP SKIN LESIONS, OVER 4 12/30/19 20 91926-PCGT SKIN LESIONS, OVER 4 04/04/20 20 13149-DNIQ SKIN LESIONS, OVER 4 07/11/20 20 13396-QHAP SKIN LESIONS, OVER 4 11/16/19 21 69516-NQIJ SKIN LESIONS, OVER 4 02/09/20 21 06187-TKJR SKIN LESIONS, OVER 4 05/11/20 21 04903-GHKT SKIN LESIONS, OVER 4 08/14/20 21 91107-YMKG SKIN LESIONS, OVER 4 11/15/19 22 91668-TYFX SKIN LESIONS, 2 TO 4 03/20/20 17 61958-AAVB SKIN LESIONS, 2 TO 4 06/20/20 17 79202-VRRG SKIN LESIONS, 2 TO 4 11/03/19 13 44271-CFFL SKIN LESIONS, 2 TO 4 08/04/20 12 69749-FUAV SKIN LESIONS, 2 TO 4 08/06/20 11 68921-XSEM SKIN LESIONS, 2 TO 4 12/03/19 12 29779-KMKZ SKIN LESIONS, 2 TO 4 05/19/20 12 77860-LKAT SKIN LESIONS, 2 TO 4 02/18/20 12 58926-SLFJHLAK OF HEMATOMA/FLUID 018 Next Appt Details Provider Name:Shayna valadez, 08/09/2025 01:00:00 PM, [address] [place], [address], Insurance Providers Payer Name Payer Address Payer Phone Subscriber Number Group Number Insured Name Patient Relationship to Insured Coverage Start Date Coverage End Date Medicare [facility] [email or web address] [address] [place] [address] [id number] Ventulet t Divya Self - patient is the insured [employer] [address] [place] [address] [phone] [id number] Ventulet t Divya Self - patient is the insured Medical (General) History Medical History History ICD Code mumps measles chicken pox type II diabetes Surgical History Surgery Date(Month/Year) cholecystectomy 1986 rotator cuff tear repair 2008 triple bypass surgery 2000 colonoscopy 04/04/2012 hernia repair 10/30/2013 Hospitalization History Reason [place] [facility] [place] [facility] [place] 4 days given Meds 04/23/22 [place] [facility] [place] should[place] 07/07/15 [place] [facility] [place] in h [place]ad. 08/2014 Went to [facility] for sprained right an kle. 03/2013 Patient went to [facility] for gout. 08/01
== END 2025-05-19 10:16 | disposition home or self-care (01) ==
LOC: HO.HSMS 09:26
PROVIDERS: PCP Internal Medicine; Visit Provider Psychiatry & Neurology Neurology
DX: G20.A1 Parkinson's disease without dyskinesia, without mention of fluctuations (principal); G47.52 REM sleep behavior disorder
CPT/HCPCS: 99214; G2211

== ENCOUNTER → 2025-05-19 09:25 | Outpatient (BNVA) | payer MEDICARE, SELFPAY ==
[2023-09-19 08:02] VITALS: BP 140/52; BP 140/74; BMI 31.0
== END ==
PROVIDERS: PCP Internal Medicine; Visit Provider Psychiatry & Neurology Neurology
DX: G20.A1 Parkinson's disease without dyskinesia, without mention of fluctuations (principal); G47.52 REM sleep behavior disorder
CPT/HCPCS: 99212

== ENCOUNTER 2025-07-12 09:30 | Outpatient (AMB) | payer MEDICARE, SELFPAY ==
[2023-09-19 08:02] VITALS: BP 140/52; BP 140/74; BMI 31.0
--- OUTSIDE RECORDS SUMMARY | 2025-04-22 07:15 | XMS_ITS ---
Author Organization [facility] Address [address] [place] [address] Care Team Providers Care Open Hearth Melter Name Role Phone Luke Albright Primary Care Provider Shayna Chung Unavailable [phone] Allergies No Known Allergies Medications Medication SIG [...] No Points 0 Interpretation Negative Vital Signs Blood pressure systolic 128 mm Hg 04/22/20 25 Blood pressure diastolic 65 mm Hg 025 Height 5ft9in in 04/22/2025 Weight 209 lbs 04/22/2025 BMI 30.86 kg/m2 04/22/2025 Encounters Encounter Location Date Provider Diagnosis [facility] [address] [address] 04/22/2025 Shayna Patel Plan Of Treatment Next Appt Details Provider Name:Shayna Jennie valadez, 08/09/2025 01:00:00 PM, [address] [place] [address], [phone], Progress Notes * Divya NAILS SrDOB: (70 yo M)Acc No.[id number]:04/22/2025 Progress Note Patient: Divya ARREOLA Sr Provider: Ortega Patel DPM :1955 A ge:70 Y S ex:Male Date:04/22/2025 Address:[address] [place], [place] [id number] Pcp:Luke Albright Subjective: * Chief Complaints: * * HPI: A t Risk footcare: Pt States Last PCP Visit: D ate 0 10/23/2024 * ROS: G eneral/Constitutional: Nausea [...] enies. C ardiovascular: Pacemaker d enies. M FLEET COORDINATOR d enies. W PW d enies. C [...] Diagno stic Procedure: P atient went to [facility] for gout. 11/30/11, Went to [facility] for sprained right ankle. 03/2013, Patient went to [facility] [place] [facility] for [place] in head. 08/2014, pt went to [facility] for dislocated shoulder 07/07/15, [facility] [place]constipation for 4 days given Meds 04/23/22, [facility] [place] Stomach Issues 01/2023. [...] wood,snow plow. Marital status: . 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 D rug/Alcohol: A EUN-C (Standard) D id [...] Y es R etinal Screening Performed: Y elie F indings of Diabetic Eye Exam: n o retinopathy Assessment: Plan: * Treatment: * Images: * The named appointment provid er may or may not be the originator of this progress note, and it is not deemed complete until electronically signed by the appointment provider. Sign off status: Pending * Provider: Ortega Patel DPM Date: 0 04/22/2025 Generated for Deni escobar/Wing/Reddysmitting on: 0 07/12/2025 11:11 AM EDT History and Physical Notes * [...]
--- OUTSIDE RECORDS SUMMARY | 2025-04-26 07:15 | XMS_ITS ---
Author Organization [facility] Address [address] [place] [phone] Care Team Providers Care Travel Money Advisor Name Role Phone Luke Albright Primary Care Provider Shayna Chung [phone] Rodriguez Encounters Encounter Location Date Provider Diagnosis [address] [address] 04/26/2025 Shayna Patel Plan Of Treatment Next Appt Details Provider Name:Shayna valadez, 08/09/2025 01:00:00 PM, [address] [place] [address], [phone], Progress Notes * Divya NAILS SrDOB: (70 yo M)Acc No.[id number]:04/26/2025 Progress Note Patient: Jessiac SOUZAJOSE MANUEL Divya Bejarano Sr Provider: Ortega Patel DPM :1955 A ge:70 Y S ex:Male Date:04/26/2025 Address:[address] [place], [place] [phone] Pcp:Luke Albright Subjective: * Chief Complaints: * [...] 0 04/26/2025 Generated for Deni escobar/Wing/Aaron on: 0 07/12/2025 11:11 AM EDT
--- NOTE | 2025-07-12 09:57 | A.OFFPC_ITS ---
Vital Signs 07/12/25 09:59 Height 5 ft 9 in Weight 205 lb 4 oz BMI 30.3 BP 118/74 Blood Pressure Location Lt brachial Position Sitting Pulse 80 Pulse Source Pulse Oximeter Temp 97.1 F Temp Source Temporal Artery Scan Pulse Oximetry (%) 96 Oxygen Delivery Method Room Air Intake Visit Reasons: DM Accompanied by: Spouse Allergies amoxicillin Allergy (Severe, Verified 07/12/25 10:02) Diarrhea olmesartan Allergy (Unknown, Verified 07/12/25 10:02) Diarrhea Tobacco use date assessed: 07/12/25 Fall risk assessment: 1 Fall in past year Last assessed Fall Risk: 07/12/25 Dental Screening Dental Screen Date: 07/12/25 Did you have a dental visit in the last 12 months?: No Did you have a dental problem in the last 6 months where you did not have access to dental care?: No Was dental information given to patient?: Patient declined HPI DM HPI Details patient state when bending down - having diarrhea PFSH Medical History Hypersomnia Snoring REM behavioral disorder Chronic renal insufficiency Parkinson disease Alzheimer disease Leukocytosis Screening for prostate cancer Generalized anxiety disorder Diarrhea Anxiety and depression Type 2 diabetes mellitus with hyperglycemia Hypercholesterolemia GERD (gastroesophageal reflux disease) Vitamin D deficiency Obesity (BMI 30-39.9) Coronary artery disease Hypertension Humeral fracture Surgical History Hx of cardiac catheterization History of endoscopic gastrointestinal surgery History of colonoscopy History of coronary artery bypass graft History of umbilical hernia repair History of tonsillectomy History of repair of rotator cuff History of cholecystectomy Family History Father Lung cancer Mother Diabetes Hypertension Social History Household Members: Spouse Housing: House Do you presently have visiting nurse or other home services: No Alcohol intake: never Patient Tobacco Use Status: Never used Tobacco e-Cigarette/Vaping Use: Never Used Second Hand Smoke Exposure: No Advance Directives Date on File: 03/07/22 service: No Current occupational status: retired Cognitive needs: No Hearing needs: Yes Vision needs: Yes (glasses) Questionnaire PHQ-9 Over the last 2 weeks, how often have you been bothered by any of the following problems? 1. Little interest or pleasure in doing things: several days 2. Feeling down, depressed, or hopeless: more than half the days 3. Trouble falling or staying asleep, or sleeping too much: several days 4. Feeling tired or having little energy: several days 5. Poor appetite or overeating: several days 6. Feeling bad about yourself - or that you are a failure or have let yourself or your family down: several days 7. Trouble concentrating on things, such as reading the newspaper or watching television: several days 8. Moving or speaking so slowly that other people could have noticed. Or the opposite - being so fidgety or restless that you have been moving around a lot more than usual: several days 9. Thoughts that you would be better off or of hurting yourself in some way: not at all Total score: 9 Depression Screening Interpretation: Positive Depression Screening Done: Yes Source: Developed by Drs. Isaiah Han, Shanna Otero, Mike Flores and colleagues, with an educational filippo from [employer]. Thrive Questionnaire Date Thrive assessed: 03/11/25 I am a: Patient What is your living situation today?: I have a steady place to live Within the past 12 months, did the food you bought not last and you didn't have the money to get more?: Never true Within the past 12 months, did you worry whether your food would run out before you got money to buy more?: Never true Do you have trouble paying for medicines?: No Do you have trouble getting transportation to medical appointments?: No Do you have trouble paying your heating and electricity bill?: No Do you have trouble taking care of your child, family member or friend?: No Do you have trouble with day-to-day activities such as bathing, preparing meals, shopping, managing finances, etc.?: No Are you currently unemployed and looking for a job?: No Are you interested in more education?: No Please select the resources that you would like help with: None Currently or been in a relationship where the following occur: No concerns reported THRIVE Score: 0 AUDIT C Alcohol Use Questionnaire (AUDIT-C) 1. How often do you have a drink containing alcohol?: Never 3. How often do you have six or more drinks on one occasion?: Never Total Score: 0 RHIANNA-7 AMB Questionnaire RHIANNA-7 Date RHIANNA - 7 assessed: 03/11/25 Feeling nervous, anxious, or on edge: 1 = Several days Not being able to stop or control worryin = Not at all Worrying too much about different things: 0 = Not at all Trouble relaxin = Not at all Being so restless that it is hard to sit still: 0 = Not at all Becoming easily annoyed or irritable: 0 = Not at all Feeling afraid as if something awful might happen: 0 = Not at all Total RHIANNA-7 score (0-4 normal; 5-9 mild; 10-14 moderate; 15-21 severe): 1 Source: Developed by Drs. Isaiah Han, Shanna Otero, Mike Flores and colleagues, with an educational filippo from [employer]. Physical exam (Primary Care) Vital Signs: Last Vital Signs Temp 97.1 F 07/12/25 09:59 Pulse 80 07/12/25 09:59 BP 118/74 07/12/25 09:59 Pulse Ox 96 07/12/25 09:59 Oxygen Delivery Method Room Air 07/12/25 09:59 BMI result Body Mass Index 30.3 Tobacco/Smoking Status: Tobacco use Status Tobacco use date assessed 07/12/25 07/12/25 10:04 Patient Tobacco Use Status Never used Tobacco 07/12/25 10:00 Tobacco use type 12/10/24 10:31 e-Cigarette/Vaping Use Never Used 07/12/25 10:00 PHQ-9: PHQ-9 Score PHQ-9: Total score 9 07/12/25 10:22 Depression Screening Interpretation: Positive Thrive Assessment: Date of Thrive Assessment Date Thrive assessed 03/11/25 07/12/25 10:00 Currently or been in a relationship where the following occur: No concerns reported Const General: alert; No acute distress Eyes Conjunctivae: conjunctivae normal Resp Auscultation: clear to auscultation bilaterally Cardio Rate: regular rate Rhythm: regular rhythm GI Inspection: Yes normal to inspection Extrem General: Yes normal to inspection and No edema Results AMB Hemoglobin A1c AMB Hemoglobin A1c 7.0 % Last Edit by Jen Crowder CMA on 07/12/25 10:07 Results Reviewed Results Reviewed: Laboratory Last Values Hgb A1c (Clinic) 7.0 % (4.0-6.0) H 07/12/25 10:00 Coding Level of Care Code Est Pt Level 4 (81128) Complex EM visit Add On G2211 Diagnoses Type 2 diabetes mellitus with hyperglycemia, with long-term current use of insulin E11.65; Z79.4 Diabetes mellitus flight physician insulin use: with assisted use Obesity (BMI 30-39.9) E66.9 Coronary artery disease involving shosh[place]bann[place] coronary artery of shoshone[place]bannock heart without angina pectoris I25.10 Associated angina: without angina Coronary Disease-Associated Artery/Lesion type: shoshone-bannock artery [place] vs. transplanted heart: shoshone-bannock heart Essential hypertension I10 Hypertension type: essential hypertension Generalized anxiety disorder F41.1 CKD (chronic kidney disease) N18.9 BPH with obstruction/lower urinary tract symptoms N40.1; N13.8 Parkinson's disease without dyskinesia or fluctuating manifestations G20.A1 Dyskinesia presence: without dyskinesia Fluctuating manifestations: without fluctuating manifestations Bile salt-induced diarrhea K90.89 Assessment & Plan Assessment & Plan (1) Type 2 diabetes mellitus with hyperglycemia: Code(s): E11.65 - Type 2 diabetes mellitus with hyperglycemia Category: Medical Qualifiers: Diabetes mellitus assisted insulin use: with flight physician use Qualified Code(s): E11.65 - Type 2 diabetes mellitus with hyperglycemia; Z79.4 - cloud solutions architect (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 Plan: Decrease the amount of carbohydrate intake, pasta, bread, rice and potatoes are all sugar and that is aside from all the sweet stuff, remember that fruits are good but they are Sweet also. Hemoglobin A1c goal of less than 7.0. Patient is presently on Farxiga, Trulicity glipizide Basaglar. (2) Obesity (BMI 30-39.9): Code(s): E66.9 - Obesity, unspecified Category: Medical Plan: Diet and exercise noted 6 lb weight loss (3) Coronary artery disease: Code(s): I25.10 - Atherosclerotic heart disease of [place]osh[place]ann[place] coronary artery without angina pectoris Category: Medical Qualifiers: Associated angina: without angina Coronary Disease-Associated Artery/Lesion type: shosh[place]bann[place] artery [place] vs. transplanted heart: shoshone[place]bannock heart Qualified Code(s): I25.10 - Atherosclerotic heart disease of shosh[place]ann[place] coronary artery without angina pectoris Plan: Control the cholesterol, weight, blood pressure, diabetes patient is on aspirin 81 mg once a day (4) Hypertension: Code(s): I10 - Essential (primary) hypertension Category: Medical Qualifiers: Hypertension type: essential hypertension Qualified Code(s): I10 - Essential (primary) hypertension Plan: Continue with blood pressure medication. Decrease salt intake and exercise continue with amlodipine 5 mg once a day metoprolol 200 mg once a day (5) Generalized anxiety disorder: Code(s): F41.1 - Generalized anxiety disorder Category: Medical Plan: Continue with sertraline mirtazapine . (6) CKD (chronic kidney disease): Code(s): N18.9 - Chronic kidney disease, unspecified Category: Medical Plan: Keep well hydrated avoid NSAIDs. Will continue to monitor (7) BPH with obstruction/lower urinary tract symptoms: Comment: Ultrasound December 2022 Code(s): N40.1 - Benign prostatic hyperplasia with lower urinary tract symptoms; N13.8 - Other obstructive and reflux uropathy Category: Medical (8) Parkinson disease: Comment: Bradykinesia, tremors and cog wheel rigidity Code(s): G20.A1 - Parkinson's disease without dyskinesia, without mention of fluctuations Category: Medical Qualifiers: Dyskinesia presence: without dyskinesia Fluctuating manifestations: without fluctuating manifestations Qualified Code(s): G20.A1 - Parkinson's disease without dyskinesia, without mention of fluctuations Plan: Patient has been seeing Neurology and has been placed on levodopa carbidopa (9) Bile salt-induced diarrhea: Code(s): K90.89 - Other intestinal malabsorption Category: Medical Plan History of Present Illness The patient is a 70-year-old male presenting for a follow-up visit. The patient has a history of coronary artery disease, diabetes mellitus, hypertension, hypercholesterolemia, and generalized anxiety disorder. He also has benign prostatic hyperplasia and a history of gastric ulcer. The patient has been diagnosed with obstructive sleep apnea and congestive heart failure. He also has chronic kidney disease with stable renal function at 1.1. The patient was diagnosed with Parkinson's disease and is currently on carbidopa-levodopa 25/100 TID. He has been referred for physical therapy and advised to undergo a sleep study. The patient reports experiencing diarrhea for the past 10 days, which started without any new medication changes. He denies any gassiness but sometimes feels bloated. The patient's last colonoscopy was in July 2022, and he is up to date with his vaccinations, including flu, COVID-19, tetanus, RSV, and pneumonia shots. Health Maintenance - Colonoscopy last performed in July 2022 - Vaccinations up to date: flu, COVID-19, tetanus, RSV, pneumonia Social History - Exercise: Walks three to four times a day Review of Systems - Gastrointestinal: Reports diarrhea for the past 10 days, denies gassiness but reports occasional bloating Physical Exam - Extremities: Mild swelling noted, more pronounced on one side Results - Labs: Normal blood count, no anemia, normal electrolytes, low normal potassium, stable renal function at 1.1, hemoglobin A1c at 7.0, LDL cholesterol at 48, triglycerides at 165, normal thyroid function - Urine test: Proteinuria Plan Patient was informed and verbally consented to the use of an ambient scribe for clinic note documentation during this visit. 1. Diabetes Mellitus The patient's hemoglobin A1c is currently at 7.0, with a goal of less than 7.0. The patient is on Farxiga, Trulicity, glipizide, and Moseglar, with dietary and exercise modifications noted. 2. Parkinson's Disease The patient is currently on carbidopa-levodopa 25/100 TID and has been referred for physical therapy. A sleep study has been advised, and melatonin was given, with clonazepam being considered. 3. Hypertension The patient is advised to continue with amlodipine 5 mg once a day and metoprol ol 200 mg once a day. 4. Chronic Kidney Disease The patient is advised to keep well hydrated and avoid NSAIDs, with renal function being stable at 1.1. Discussion Notes During the visit, we discussed the management of diabetes mellitus, emphasizing the importance of maintaining a hemoglobin A1c below 7.0. We reviewed the current medications for Parkinson's disease and the need for a sleep study. The patient was advised to continue current antihypertensive therapy and to monitor renal function closely. Patient Instructions - Continue taking prescribed medications as directed. - Maintain a healthy diet and exercise regularly. - Stay hydrated and avoid NSAIDs. - Follow up with neurology and complete the sleep study as advised. Orders: Orders AMB Hemoglobin A1c Today Z13.9 - Encounter for screening, unspecified Medications: New cholestyramine (Prevalite) administer w/meal; avoid other meds within 1hr before or 4-6hr after dose 4 grams PO BID 60 ea 0RF K90.89 - Other intestinal malabsorption
[2025-07-12 09:59] VITALS: BP 118/74; PULSE 80; TEMP 36.2; O2SAT 96; BMI 30.3
--- OUTSIDE RECORDS SUMMARY | 2025-07-12 11:11 | XMS_ITS | Clinical Summary ---
Author Organization [facility] Address [address] [place] [address] Phone Care Team Providers Care Hotel Director Name Role Phone Tomas Dumont MD Primary Care Provider [phone] Allergies No known active allergies Medications amLODIPine [...] injury, not otherwise specified 06/14/2023 Hypertension 06/14/2023 Family History Medical History Relation Comments Diabetes [...] Visit [facility] [address] [place] [address] Tomas Dumont MD [address] [facility] [facility] [place] [phone] Health Maintenance Due Date Last Done Comments [...] Hemoglobin A1C 6.0 4.0 - 6.0 03/26/2024 us Historical Provider LAB BLOOD ORDERABLES Lisa l Result from Last 3 Months or Most Recently Relevant to Health Maintenance Insurance Medicare [facility] Medicare [facility] Care Teams Hotel Director Relationship Specialty Start Date End Date Tomas Dumont MD [address] [phone] PCP - General Nephrology 07/26/23
--- OUTSIDE RECORDS SUMMARY | 2025-07-12 11:11 | XMS_ITS | Patient Health Record ---
Author Organization [facility] [place] Address [address] [place] [address] Care Team Providers Care Fire Medic Name Role Phone Luke Albright Primary Care Provider Shayna Chung Unavailable [phone] Allergies No Known Allergies Reason For Referral [...] Polyneuropathy due to type 2 diabetes mellitus ([id number]) Type 2 diabetes mellitus with diabetic polyneuropathy (E11.42) Active confirmed Vital Signs Blood pressure diastolic 65 mm Hg 05/10/2025 Height 5ft9in in 05/10/2025 Blood pressure systolic 128 mm Hg 05/10/2025 Weight 209 lbs 05/10/2025 BMI 30.86 kg/m2 05/10/2025 Procedures Procedure Date Ordered Date Performed Result Body Sit e 04034-RYYHXDN NAIL, 6 OR MORE 09/16/2024 N/A 19065-HXVO SKIN LESIONS, OVER 4 09/16/2024 N/A 48928-TTVAFWN NAIL, 6 OR MORE 01/28/2025 N/A 62811-MSWQ SKIN LESIONS, OVER 4 01/28/2025 N/A Encounters Encounter Location Date Provider Diagnosis [facility] [place] [address] 09/16/2024 Shayna Patel Type 2 diabetes mellitus with diabetic polyneuropathy E11.42 and Tinea unguium B35.[address] [address] 01/28/2025 Shayna Jorge Other hammer toe(s) (acquired), right foot M20.41 ; Other hammer toe(s) (acquired), left foot M20.42 ; Type 2 diabetes mellitus with diabetic polyneuropathy E11.42 and Tinea unguium B35.[address] [address] 05/10/2025 Shayna Jorge Type 2 diabetes mellitus with diabetic polyneuropathy E11.42 and Tinea unguium B35.[address] [address] 04/22/2025 Shayna Baileyaker Assessments Encounter Date Diagnosis (ICD Code) Assessment [...] mellitus with diabetic polyneuropathy (ICD-10 - E11.42) 01/28/2025 Tinea unguium (ICD-10 - B35.1) Plan Of Treatment Pending Test Test Name Order Date 82887-ISZNHBL NAIL, 6 OR MORE 08/06/2011 83607-ESKJTHK NAIL, 6 OR MORE 12/03/2011 28854-XYRNCHM NAIL, 6 OR MORE 02/18/2012 85775-QMJBVDL NAIL, 6 OR MORE 05/19/2012 09702-XMGHMUL NAIL, 6 OR MORE 08/04/2012 53505-OFKMUGK NAIL, 6 OR MORE 11/03/2012 77809-QPJLZHD NAIL, 6 OR MORE 02/02/2013 94765-BNCWYSU NAIL, 6 OR MORE 05/18/2013 55058-FGQGYKW NAIL, 6 OR MORE 09/02/2013 25832-CHKGBIG NAIL, 6 OR MORE 12/03/2013 19587-GWJOBUF NAIL, 6 OR MORE 03/08/2014 37613-TKPZFNS NAIL, 6 OR MORE 06/09/2014 62427-LCHJWVP NAIL, 6 OR MORE 09/13/2014 99444-TAIRJHV NAIL, 6 OR MORE 12/13/2014 27088-EAVWPEF NAIL, 6 OR MORE 03/16/2015 57519-BLAHAOA NAIL, 6 OR MORE 06/16/2015 67901-KCSSYCO NAIL, 6 OR MORE 09/12/2015 32196-QTJWNMD NAIL, 6 OR MORE 12/12/2015 87127-FFDIYYI NAIL, 6 OR MORE 03/15/2016 18997-BDGFFVV NAIL, 6 OR MORE 06/13/2016 14191-GEFPSLL NAIL, 6 OR MORE 09/12/2016 02369-QEPOWYO NAIL, 6 OR MORE 12/19/2016 83303-MNTAQWA NAIL, 6 OR MORE 03/20/2017 53878-QTGVEKY NAIL, 6 OR MORE 06/20/2017 43358-QPAZSTB NAIL, 6 OR MORE 09/18/2017 52783-GITEKKM NAIL, 6 OR MORE 12/23/2017 08906-PVLNOLR NAIL, 6 OR MORE 03/24/2018 54989-NNNXTCR NAIL, 6 OR MORE 06/25/2018 68460-DNTHFNY NAIL, 6 OR MORE 09/24/2018 14311-MXHVUEM NAIL, 6 OR MORE 09/16/2024 29414-UOEDYMY NAIL, 6 OR MORE 01/28/2025 15519-Upluleui Plate 06/09/2014 08095-Iklirflh Plate 12/13/2014 45961-Gkforjpl Plate 11/03/2012 50538-Tuuejkdx Plate 08/04/2012 09675-Mtzeanci Plate 02/18/2012 34047-Ukrrhtaa Plate 05/19/2012 52627-Jwknbbae Plate 12/03/2011 83938-Pyxuxdnt Plate 08/06/2011 29493- Debride <25 sq cm 12/13/2014 47617-QVQA SKIN LESIONS, OVER 4 09/13/20 14 51617-LHJO SKIN LESIONS, OVER 4 06/09/20 14 99659-HSDU SKIN LESIONS, OVER 4 03/08/20 14 76269-PSHK SKIN LESIONS, OVER 4 12/03/19 14 37384-DXXC SKIN LESIONS, OVER 4 09/02/20 13 69167-VCDV SKIN LESIONS, OVER 4 05/18/20 13 98785-HYFI SKIN LESIONS, OVER 4 02/03/20 13 88505-ZJQU SKIN LESIONS, OVER 4 11/03/19 13 53068-DBTJ SKIN LESIONS, OVER 4 12/13/19 15 72691-RHFK SKIN LESIONS, OVER 4 03/16/20 15 21870-BYCF SKIN LESIONS, OVER 4 09/12/20 15 19884-WUDY SKIN LESIONS, OVER 4 06/16/20 15 99131-LIZB SKIN LESIONS, OVER 4 09/12/20 16 06806-UPGY SKIN LESIONS, OVER 4 06/13/20 16 87235-NVOI SKIN LESIONS, OVER 4 03/15/20 16 34601-KIUC SKIN LESIONS, OVER 4 12/12/19 16 67836-GAIA SKIN LESIONS, OVER 4 09/24/20 18 05264-GJVT SKIN LESIONS, OVER 4 06/25/20 18 76247-ZYKW SKIN LESIONS, OVER 4 03/24/20 18 31450-XQXK SKIN LESIONS, OVER 4 12/24/19 18 26864-BJFS SKIN LESIONS, OVER 4 09/18/20 17 98987-XOFX SKIN LESIONS, OVER 4 12/20/19 17 68977-VWKH SKIN LESIONS, OVER 4 01/29/20 25 25962-ITWE SKIN LESIONS, OVER 4 09/16/20 24 14704-QEFD SKIN LESIONS, OVER 4 12/25/19 19 78446-CSOZ SKIN LESIONS, OVER 4 03/25/20 19 13932-CCBA SKIN LESIONS, OVER 4 07/02/20 19 81378-WDRD SKIN LESIONS, OVER 4 10/05/20 19 46949-WPGS SKIN LESIONS, OVER 4 12/30/19 20 07864-BZUP SKIN LESIONS, OVER 4 04/04/20 20 59627-AATO SKIN LESIONS, OVER 4 07/11/20 20 43740-EALU SKIN LESIONS, OVER 4 11/16/19 21 48876-JDOW SKIN LESIONS, OVER 4 02/09/20 21 89250-LYAY SKIN LESIONS, OVER 4 05/11/20 21 47905-MCCQ SKIN LESIONS, OVER 4 08/14/20 21 48645-DFGT SKIN LESIONS, OVER 4 11/15/19 22 79334-MFCN SKIN LESIONS, 2 TO 4 03/20/20 17 57116-BERB SKIN LESIONS, 2 TO 4 06/20/20 17 14513-CYBK SKIN LESIONS, 2 TO 4 11/03/19 13 49327-NXZZ SKIN LESIONS, 2 TO 4 08/04/20 12 27840-EANI SKIN LESIONS, 2 TO 4 08/06/20 11 55784-VMRZ SKIN LESIONS, 2 TO 4 12/03/19 12 03320-JLXJ SKIN LESIONS, 2 TO 4 05/19/20 12 37816-MLQU SKIN LESIONS, 2 TO 4 02/18/20 12 77357-VPUAIIZX OF HEMATOMA/FLUID 018 Next Appt Details Provider Name:Shayna Schneider allyson, 08/09/2025 01:00:00 PM, [address] [place] [address], [phone], Insurance Providers Payer Name Payer Address Payer Phone Subscriber Number Group Number Insured Name Patient Relationship to Insured Coverage Start Date Coverage End Date Medicare National [facility] [employer] [address] [place] [address] [id number] Divya De Los Santos Self - patient is the insured [employer] [address] [place] [address] [id number] Divya De Los Santos Self - patient is the insured Medical (General) History Medical History History ICD Code mumps measles chicken pox type II diabetes Surgical History Surgery Date(Month/Year) cholecystectomy 1987 rotator cuff tear repair 2008 triple bypass surgery 2000 colonoscopy 04/04/2012 hernia repair 10/30/2013 Hospitalization History Reason Date(Month/Year) [facility] - Stomach Issues 01/2023 [facility] -constipation for 4 days given Meds 04/23/22 pt went to [facility] ER for dislocated shoulde r 07/07/15 Patient went to [facility] ER for stitches in h ead. 08/2014 Went to [facility] for sprained right an kle. 03/2013 Patient went to [facility] for gout. 08/01
== END 2025-07-12 10:35 | disposition home or self-care (01) ==
LOC: HO.HMCH 09:31
PROVIDERS: PCP Internal Medicine; Visit Provider Internal Medicine
DX: I12.9 Hypertensive chronic kidney disease with stage 1 through stage 4 chronic kidney disease, or unspecified chronic kidney disease (principal); E11.65 Type 2 diabetes mellitus with hyperglycemia; Z79.4 Long term (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; G20.A1 Parkinson's disease without dyskinesia, without mention of fluctuations; N18.9 Chronic kidney disease, unspecified; E66.9 Obesity, unspecified; Z68.30 Body mass index [BMI] 30.0-30.9, adult; I25.10 Atherosclerotic heart disease of native coronary artery without angina pectoris; F41.1 Generalized anxiety disorder; N40.1 Benign prostatic hyperplasia with lower urinary tract symptoms; N13.8 Other obstructive and reflux uropathy; K90.89 Other intestinal malabsorption

== ENCOUNTER → 2025-07-12 09:30 | Outpatient (BNVA) | payer MEDICARE, SELFPAY ==
[2023-09-19 08:02] VITALS: BP 140/52; BP 140/74; BMI 31.0
== END ==
PROVIDERS: PCP Internal Medicine; Visit Provider Internal Medicine
DX: E11.65 Type 2 diabetes mellitus with hyperglycemia (principal); E11.22 Type 2 diabetes mellitus with diabetic chronic kidney disease; E66.9 Obesity, unspecified; I25.10 Atherosclerotic heart disease of native coronary artery without angina pectoris; F41.1 Generalized anxiety disorder; I12.9 Hypertensive chronic kidney disease with stage 1 through stage 4 chronic kidney disease, or unspecified chronic kidney disease; N18.9 Chronic kidney disease, unspecified; N40.1 Benign prostatic hyperplasia with lower urinary tract symptoms; N13.8 Other obstructive and reflux uropathy; G20.A1 Parkinson's disease without dyskinesia, without mention of fluctuations; K90.89 Other intestinal malabsorption; R19.7 Diarrhea, unspecified; Z79.4 Long term (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; Z68.30 Body mass index [BMI] 30.0-30.9, adult
CPT/HCPCS: 83036; 96127; 99212

== ENCOUNTER → 2025-08-11 12:44 | Outpatient (RCR) | payer MEDICARE, SELFPAY ==
[2023-09-19 08:02] VITALS: BP 140/52; BP 140/74; BMI 31.0
--- NOTE | 2024-06-23 13:43 | MHC.PT.EP ---
[facility] [place] [facility] [place] [facility] [place] [facility] [address] [phone] F: [phone] F: [phone] F: [phone] F: [phone] Physical Therapy Plan of Care Date of Evaluation: 06/23/24 Date of Surgery: Diagnosis: L hip trochanteric bursitis Assessment: Pt is a 69 y/o M with hx of HTN and DMII who is referred to PT for eval and treat of L hip trochanteric bursitis resulting in decreased tolerance or ability for prolonged standing and walking, ascending/descending stairs, bending forward and completing HH chores secondary to decreased lumbar ROM, decreased hip ROM and strength, (+) ANAHY on L side and increased HS tissue tension L > R. Pt is motivated and is deemed an appropriate candidate to receive skilled PT services to address their physical impairments in order to improve their function. Frequency and Duration: The patient will be seen 2x/week for 4 weeks Short Term Goals: Initiate home exercise program. Pt will improve lumbar flexion ROM to 100%; initial 70%. Pt will report at most 3/10 pain; initial 6/10. 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 Pt will report at most a little bit of difficulty with HH chores; initial quite a bit of difficulty. Pt will report at most a little bit of difficulty with walking 2 blocks; initial quite a bit of difficulty. Pt will improve LEFI score by 9 points. Treatment Plan: Modalities to reduce pain, spasms and effusion. Manual therapy to restore motion and function. Therapeutic exercise to improve strength and flexibility. Neuromuscular re-education for posture and balance. Therapeutic activities to return to functional activities of daily living. Electronically signed by: Chandan Jett PT. Please sign and return to therapist. Thank you for your referral.
== END | disposition home or self-care (01) ==
LOC: HO.PT 06-23 11:00
PROVIDERS: PCP Internal Medicine; Visit Provider Physician Assistant
DX: M70.62 Trochanteric bursitis, left hip (principal)
CPT/HCPCS: 97110; 97161

== ENCOUNTER → 2025-09-15 19:30 | Outpatient (REF) | payer MEDICARE, SELFPAY ==
[2023-09-19 08:02] VITALS: BP 140/52; BP 140/74; BMI 31.0
== END ==
LOC: HO.SL 19:30
PROVIDERS: PCP Internal Medicine; Visit Provider Psychiatry & Neurology Neurology
DX: G47.52 REM sleep behavior disorder (principal); R06.83 Snoring; G47.10 Hypersomnia, unspecified
CPT/HCPCS: 95810

== ENCOUNTER → 2025-09-15 21:19 | Outpatient (BNV) | payer MEDICARE, SELFPAY ==
[2023-09-19 08:02] VITALS: BP 140/52; BP 140/74; BMI 31.0
== END ==
PROVIDERS: PCP Internal Medicine; Visit Provider Psychiatry & Neurology Neurology
DX: G47.33 Obstructive sleep apnea (adult) (pediatric) (principal)
CPT/HCPCS: 95810

== ENCOUNTER 2025-10-07 08:16 | Outpatient (AMB) | payer MEDICARE, SELFPAY ==
[2023-09-19 08:02] VITALS: BP 140/52; BP 140/74; BMI 31.0
--- OUTSIDE RECORDS SUMMARY | 2025-04-22 06:15 | XMS_ITS ---
Author Organization [facility] Address [address] [place] [address] Care Team Providers Care Planning And Analysis Manager Name Role Phone Luke Albright Primary Care Provider Shayna Chung Unavailable [phone] Allergies No Known Allergies Medications Medication SIG (Take, Route, Frequency, Duration) Notes Start Date End Date Status Metformin & Diet Manage Prod Not-Taking Econazole Nitrate 1 % 1 application to affected area Externally Once a day; Duration: 30 days 09/12/2015 Not-Taking Tolnaftate 1 % Externally Twice a day 03/08/2014 Not-Taking Metoprolol Tartrate 100 MG Oral Not-Taking Tolnaftate 1 % 1 application to affected area Externally Twice a day; Duration: 30 days Not-Taking Extra Depth Diabetic Shoes with 3 Pair Custom heat-molded multi-density innersoles for 1 year Dx: 11/16/2020 Not-Taking Metoprolol Succinate Active Simvastatin Active Extra-Depth Diabetic Shoes with 3 Pair Custom heat-molded multi-density innersoles . 1pair shoes/3sets inserts . .; Duration: 1 year Active Extra Depth Orthopedic Shoes (1 Pair) with Customized Heat Molded Multidensity Innersoles (3 Pair) as directed Dx: NIDDM/Polyneuropathy (E11.42), Hammertoe Foot Deformity (M20.41,M20.42), Preulcerative Skin Lesion(s) (L85.1 01/28/2025 Active Glimepiride 4 MG Oral Once a day Active hydroCHLOROthiazide Active Insulin Cartridge 3ML Active Lisinopril Active Loratadine 10 mg Once a day Ac tive Atorvastatin Calcium 10 MG Oral Once a day Active Fenofibrate 160 MG 1 tablet Oral Once a day Active Extra Depth Diabetic Shoes with 3 Pair Custom heat-molded multi-density innersoles for 1 year Dx: Active Ammonium Lactate 12 % 1 application Externally Twice a day; Duration: 30 days 11/16/2020 Active amLODIPine Besylate Active Social History Tobacco use other than smoking: Question Answer Notes Are you an other tobacco user? No Tobacco Control (Standard) Question Answer Notes Additional Findings: Tobacco non-user Current no nsmoker AUDIT-C (Standard) Question Answer Notes Did you have a drink containing alcohol in the p ast year? No Points 0 Interpretation Negative Vital Signs Height 5ft9in in 04/22/2025 Weight 209 lbs 04/22/2025 BMI 30.86 kg/m2 04/22/2025 Blood pressure systolic 128 mm Hg 04/22/20 25 Blood pressure diastolic 65 mm Hg 025 Encounters Encounter Location Date Provider Diagnosis [facility] [address] [address] 04/22/2025 Shayna Patel Plan Of Treatment Next Appt Details Provider Name:Shayna Jennie valadez, 11/18/2025 09:00:00 AM, [address] [place] [address], [phone], Progress Notes * Divya NAILS SrDOB: (70 yo M)Acc No.[id number]:04/22/2025 Progress Note Patient: Divya ARREOLA Sr Provider: Ortega Patel DPM :1955 A ge:70 Y S ex:Male Date:04/22/2025 Address:[address] [place], [place] [id number] Pcp:Luke Albright Subjective: * Chief Complaints: * * HPI: A t Risk footcare: Pt States Last PCP Visit: D ate: 0 10/23/2024 * ROS: G eneral/Constitutional: Nausea d enies. V omiting d enies. H serenity Thirst d enies. L oss appetite d enies. C hills d enies. F atigue d enies.?Fever d enies. N ight Sweats d enies. U nexplained weight loss d enies. O phthalmologic: Blurred vision d enies. R ed eye d enies. ? H EENTM: Dentures a dmits. D izziness d enies. G lasses/contacts a dmits. R etinopathy d enies. B lurred/double vision d enies. T MJ?denies. D ischarge/drainage d enies. I mplants d enies. H pat of hearing admits. D ifficulty chewing/swallowing/speaking d enies. N ose bleeds d enies.?Sore mouth d enies. S wollen glands d enies. R espiratory: On Oxygen d enies. P neumonia/pleurisy d enies.?Bronchitis d enies. E mphysema d enies. C oughing d enies. C ough blood?denies. S hortness of breath d enies. W heezing d enies. C ardiovascular: Pacemaker d enies. M ASSISTANT d enies. W PW d enies. C HF d enies. H eart attack d enies. S eptal defect d enies. R apid beat d enies. C hest pain d enies. A trial Fib. d enies. M urmur/Palpitations d enies. G astrointestinal: Hemorrhoids d enies. S tomach/Abdominal pain d enies. D ark blood stool d enies. I rritable bowel d enies. C onstipation d enies. D iarrhea d enies. V omiting d enies. H ematology: Swelling d enies. B ruising d enies. B leeding problem d enies. G enitourinary: Blood urine d enies. F requent/Painfu/urination/bladder control d enies. K idney stones d enies. I nfection (UTI) d enies. N ephropathy d enies. M usculoskeletal: Hammertoes d enies. B unions d enies. S coliosis/kyphosis d enies. M uscle cramps / walking d enies. G eneralized aches and pains?denies. W eakness d enies. I nteg.: [place] d enies. S cars d enies. C orns/calluses?denies. I ngrown nails d enies. P ainful nails d enies. R ashes d enies. N eurologic: Difficulty sleeping d enies. B ipolar d enies. B rain disorder d enies. B alance trouble d enies. C onfusion d enies. F ainting/blackouts d enies. H eadache d enies. T remors d enies. * Medical History: M umps, Measles, Chicken pox, type II diabetes. * Surgical History: c holecystectomy 1986, rotator cuff tear repair 2008, triple bypass surgery 2000, colonoscopy 04/04/2012, hernia repair 10/30/2013. * Hospitalization/Major Diagno stic Procedure: P atient went to [facility] for gout. 11/30/11, Went to [facility] for sprained right ankle. 03/2013, [place] went [place] [facility] [place] in [place]. 08/2014, pt went to [facility] [place] dis[place] 07/07/15, [facility] [place] 4 days given Meds 04/23/22, [facility] [place] 01/[place]23. * Family History: M other: , diagnosed with Diabetic - NIDDM. F ather: , diagnosed with Other specified conditions influencing health status. M aternal Grand Mother: diabetes. S iblings: diabetes. S pouse: alive. * Social History: T obacco Use: T obacco use other than smoking A re you an other tobacco user? N o Tobacco Control (Standard) A dditional Findings: Tobacco non-user C urrent nonsmoker D rugs/Alcohol: D rugs H ave you used drugs other than those for medical reasons in the past 12 months? N o M iscellaneous: C affeine: yes, frequency:, 1.5 cups per day. Children: yes. Exercise: yes, walking,cutting wood,snow plow. Marital status: . 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 D rug/Alcohol: A EUN-C (Standard) D id you have a drink containing alcohol in the past year? N o P oints 0 I nterpretation N egative * Medications: T aking Extra Depth Diabetic Shoes with 3 Pair Custom heat-molded multi-density innersoles for 1 year Dx: , Taking Ammonium Lactate 12 % Cream 1 application Externally Twice a day , Taking amLODIPine Besylate , Taking Atorvastatin Calcium 10 MG Tablet Oral Once a day , Taking Fenofibrate 160 MG Tablet 1 tablet Oral Once a day , Taking Glimepiride 4 MG Tablet Oral Once a day , Taking hydroCHLOROthiazide , Taking Insulin Cartridge 3ML , Taking Lisinopril , Taking Loratadine 10 mg Once a day , Taking Metoprolol Succinate , Taking Simvastatin , Taking Extra-Depth Diabetic Shoes with 3 Pair Custom heat-molded multi-density innersoles . . 1pair shoes/3sets inserts . . , Taking Extra Depth Orthopedic Shoes (1 Pair) with Customized Heat Molded Multidensity Innersoles (3 Pair) as directed Dx: NIDDM/Polyneuropathy (E11.42), Hammertoe Foot Deformity (M20.41,M20.42), Preulcerative Skin Lesion(s) (L85.1 , Not-Taking/PRN Extra Depth Diabetic Shoes with 3 Pair Custom heat- molded multi-density innersoles for 1 year Dx: , Not-Taking/PRN Metformin & Diet Manage Prod , Not-Taking/PRN Econazole Nitrate 1 % Cream 1 application to affected area Externally Once a day , Not-Taking/PRN Tolnaftate 1 % Cream Externally Twice a day , Not-Taking/PRN Metoprolol Tartrate 100 MG Tablet Oral , Not-Taking/PRN Tolnaftate 1 % Cream 1 application to affected area Externally Twice a day , Medication List reviewed and reconciled with the patient * Allergies: N .K.D.A. Objective: * Vitals: H t:5ft9in, Wt:209, BMI:30.86, Shoe size:10.5, BP:128/65mm Hg, Ht-cm: 175.26 cm, Wt-k.8 kg. * P ast Orders: L ab:HEMOGLOBIN A1C (GLYCOHEMOGLOBIN) (Order Date - 10/23/2023) (Collection Date & Time - 01/28/2025 03:19 PM) Value Reference Range HEMOGLOBIN A1C % (HH) 7.0 * Examination: O phthalmology Referral: DIABETES EYE EXAM P rocedure Performed: Y elie D ate of Exam Performed 0 10/23/2024 D iabetic Retinopathy Screening: Y es R etinal Screening Performed: Y es F indings of Diabetic Eye Exam: n o retinopathy Assessment: Plan: * Treatment: * Images: * The named appointment provid er may or may not be the originator of this progress note, and it is not deemed complete until electronically signed by the appointment provider. Sign off status: Pending * Provider: Ortega Patel DPM Date: 0 04/22/2025 Generated for Deni escobar/Wing/Reddysmitting on: 1 12/08/2024 08:30 AM EST History and Physical Notes * HPI (History of Present Illness) Category Sub-Category Detail Notes Category Not es At Risk footcare Pt States Last PCP Visit: Date:: 10/23/19 25 Examination Category Sub-Category Detail Notes Category Not es Ophthalmology Referral DIABETES EYE EXAM Procedu re Performed:: Yes Date of Exam Performed: 10/23/2024 Diabetic Retinopathy Screening:: Yes Retinal Screening Performed:: Yes Findings of Diabetic Eye Exam:: no retin opathy
--- OUTSIDE RECORDS SUMMARY | 2025-04-26 06:15 | XMS_ITS ---
Author Organization [facility] Address [address] [place] [address] Care Team Providers Care Java Developer Analyst Name Role Phone Luke Albright Primary Care Provider Shayna Chung [phone] Rodriguez Encounters Encounter Location Date Provider Diagnosis [address] [address] 04/26/2025 Shayna Patel Plan Of Treatment Next Appt Details Provider Name:Shayna valadez, 11/18/2025 09:00:00 AM, [address] [place] [address], [phone], Progress Notes * Divya NAILS SrDOB: (70 yo M)Acc No.[id number]:04/26/2025 Progress Note Patient: Jessica SOUZAJOSE MANUEL Divya Bejarano Sr Provider: Ortega Patel DPM :1955 A ge:70 Y S ex:Male Date:04/26/2025 Address:[address] [place], [place] [id number] Pcp:Luke Albright Subjective: * Chief Complaints: * [address] Rodriguez[address] * Medical History: Objective: * Vitals: Assessment: Plan: * Treatment: * Images: * The named appointment provid er may or may not be the originator of this progress note, and it is not deemed complete until electronically signed by the appointment provider. Sign off status: Pending * Provider: Ortega Patel, NICOLAS Date: 0 04/26/2025 Generated for Deni escobar/Wing/Aaron on: 1 12/08/2024 08:30 AM EST
--- OUTSIDE RECORDS SUMMARY | 2025-10-07 08:30 | XMS_ITS | Patient Health Record ---
Author Organization [facility] Address [address] [place] [phone] Care Team Providers Care Art Consultant Name Role Phone Po Luke CRUZ Primary Care Provider Isaiah Zaragoza [phone] Allergies Allergen (clinical drug ingredient) Drug/Non Drug Allergy documented on EMR Reaction Allergy Type Onset Date Status penicillin G Penicillin G Sodium Unknown Drug Allergy Active Reason For Referral No Information Medications Medication SIG (Take, Route, Frequency, Duration) Notes Start Date End Date Status Januvia 100 MG Tablet 1 tablet Orally On ce a day Active amLODIPine Besylate 5 MG Tablet 1 tablet Orally Once a day Active Fenofibrate 160 MG Tablet 1 tablet with a meal Orally Once a day Active Metoprolol Tartrate 100mg Tablet 1 tablet with food Orally once a day Active Olmesartan Medoxomil 20 MG Tablet TAKE ONE TABLET BY MOUTH EVERY DAY Oral; Duration: 90 Active hydroCHLOROthiazide 25 MG Tablet 1 tablet Orally Once a day Active Omeprazole 40 MG Capsule Delayed Release Oral; Duration: 30 Active glipiZIDE ER 5 MG Tablet Extended Release 24 Hour TAKE ONE TABLET BY MOUTH EVERY DAY Oral; Duration: 90 Active Loratadine 10mg Tablet 1 tablet Orally O nce a day Active Ezetimibe 10 MG Tablet TAKE ONE TABLET B Y MOUTH EVERY DAY Oral; Duration: 90 Active Prevalite 4 GM Packet 1 packet Orally th ree x a day Active Glimepiride 4 MG Tablet 1 tablet with breakfast or the first main meal of the day Orally Once a day Active Benicar 20 MG Tablet 1 tablet Orally Onc e a day Active Trulicity 1.5 MG/0.5ML Solut ion Pen-injector Subcutaneous; Duration: 90 Active Vitamin D 1000 UNIT Tablet 1 tablet Oral ly Once a day Active Carbidopa-Levodopa 25-100 MG Tablet Oral; Duration: 90 Active Mirtazapine 7.5 MG Tablet TAKE ONE TABLE T BY MOUTH AT BEDTIME Oral; Duration: 90 Active Isosorbide Mononitrate ER 30 MG Tablet Extended Release 24 Hour TAKE ONE TABLET BY MOUTH EVERY DAY Oral; Duration: 30 Active Sertraline HCl 25 MG Tablet TAKE ONE TAB LET BY MOUTH EVERY DAY Oral; Duration: 30 Active Basaglar KwikPen Act jose Sucralfate 1 GM Tablet Oral; Duration: 30 Active Insulin Aspart Activ e Rosuvastatin Calcium 40 MG Tablet 1 tablet Orally Once a day Active Clopidogrel Bisulfate 75 MG Tablet TAKE ONE TABLET BY MOUTH EVERY DAY Oral; Duration: 30 Active hydrALAZINE HCl 10 MG Tablet Oral; Duration: 30 Active Farxiga 10 MG Tablet Oral; Duration: 30 Active Immunizations Vaccine Route Administration Date Status Comme nts Flu vaccine no Preserv 3 and > Unknown 07/15/2015 Admin istered Influenza Unknown 09/20/2019 Administered Influenza Unknown 07/21/2021 Administered Influenza Unknown 08/21/2023 Administered Social History Social History Additional Details Category Social Info Options Details Miscellaneous: Marital status: Occupation: Retired Caffeine: 1-2 cups per day Section Notes: Nonsmoker; no significant al cohol use Nonsmoker; no significant al cohol use Nonsmoker; no significant al cohol use Nonsmoker; no significant al cohol use Nonsmoker; no significant al cohol use Nonsmoker; no significant al cohol use Problems Problem Type SNOMED Code ICD Code Onset Dates Problem Status W/U Status Risk Notes Problem Screening for malignant neoplasm of colon (847738377) Encounter for screening for malignant neoplasm of colon (Z12.11) Active confirmed Problem History of adenomatous polyp of colon (930975112) History of adenomatous polyp of colon (Z86.010) Active confirmed Problem Diarrhea (63567008) Diarrhea (R19.7) Active confirmed Problem Acute gastric ulcer with hemorrhage (97394269) Acute gastric ulcer with hemorrhage (K25.0) Active confirmed Problem Irritable bowel syndrome with diarrhea (720908397) Irritable bowel syndrome with diarrhea (K58.0) Active confirmed Problem Chronic gastritis (4368842) Chronic gastritis (K29.50) Active confirmed Problem Diarrhea (29040857) Diarrhea, unspecified type (R19.7) Active confirmed Problem Diverticulosis of sigmoid colon (385872373) Diverticulosis of sigmoid colon (K57.30) Active confirmed Problem Incontinence of feces (67506182) Incontinence of feces, unspecified fecal incontinence type (R15.9) Active confirmed Problem Gastric ulcer (243431444) Gastric ulcer (K25.9) Active confirmed Plan Of Treatment Pending Test Test Name Order Date CELIAC PANEL #10 02/26/2012 CELIAC PANEL #10 07/26/2015 ENDOMYSIAL IGA 02/26/2012 TRANSGLUTAMINASE AB IGA 02/26/2012 TRANSGLUTAMINASE AB IGG 02/26/2012 Future Test Test Name Order Date COLONOSCOPY 02/26/2012 COLONOSCOPY 07/03/2022 UPPER GI ENDOSCOPY 09/04/2023 Insurance Providers Payer Name Payer Address Payer Phone Subscriber Number Group Number Insured Name Patient Relationship to Insured Coverage Start Date Coverage End Date MEDICARE OF [place] [address] [place] [address] [id number] VENTLIBERTYT SHANTI Rangel Self - patient is the insured MEDEX ATT[employer] CLAIMS [address] [place] [address] [id number] VENTULET T SHANTI Self - patient is the insured Medical (General) History Medical History History ICD Code CAD with CABG as below--no history of [place] NIDDM Denies [place],CVA,Lung disease,renal disease HTN Hyperlipidemia Colonoscopy 02/2012--hyperpla stic polyp, moderate sigmoid diverticulosis, internal hemorrhoids---neg for adenomas, IBD, microscopic colitis. IBS with diarrhea--- negativ e laboratories for celiac disease--- colonoscopy as above Pneumonia 09/2019 congestive heart failure in April 2023 Parkinsons Alzeihmers Cardiac catheterization 04/2023 Colonoscopy 07/2022 with tubular adenoma s UGI bleed 01/2023 with multip le gastric ulcers on EGD with bx negative for H.pylori and malignancy Surgical History Surgery Date(Month/Year) CCY 1991 3-V CABG 1999 Right shoulder-rotator cuff--x 2
--- OUTSIDE RECORDS SUMMARY | 2025-10-07 08:30 | XMS_ITS | Patient Health Record ---
Author Organization [facility] [place] Address [address] [place] [address] Care Team Providers Care Manager Analysis Name Role Phone Luke Albright Primary Care Provider Shayna Chung Unavailable [phone] Allergies No Known Allergies Results Component Value Reference Range Notes HEMOGLOBIN A1C (GLYCOHEMOGLO BIN) Reviewed date:08/09/2025 01:07:35 PM Interpretation: Performing Lab: Notes/Report: HEMOGLOBIN A1C % (HH) 7.0 Reason For Referral No Information Medications Medication SIG (Take, Route, Frequency, Duration) Notes Start Date End Date Status Loratadine 10 mg Once a day Ac tive Metoprolol Succinate Active Insulin Cartridge 3ML Active Metoprolol Tartrate 100 MG Oral Not-Taking Lisinopril Active Tolnaftate 1 % 1 application to affected area Externally Twice a day; Duration: 30 days Not-Taking amLODIPine Besylate Active Extra Depth Orthopedic Shoes [...] inserts . .; Duration: 1 year Active Econazole Nitrate 1 % 1 application to affected area Externally Once a day; Duration: 30 days 09/12/2015 Not-Taking hydroCHLOROthiazide Active Tolnaftate 1 % Externally Twice a day 03/08/2014 Not-Taking Fenofibrate 160 MG 1 tablet Oral Once a day Active Metformin & Diet Manage Prod Not-Taking Glimepiride 4 MG Oral Once a day Active Immunizations Vaccine Route Administration Date Status Comme nts Influenza Unknown 07/10/2016 Administered Influenza Unknown 09/10/2017 Administered Influenza Unknown 09/29/2018 Administered Influenza Unknown 09/20/2019 Administered Influenza Unknown 09/20/2022 Administered Influenza Unknown 08/21/2023 Administered Influenza Unknown 07/21/2024 Administered Influenza Unknown 07/22/2025 Administered Pneumococcal Unknown 07/25/2015 Administered COVID-19 Moderna [...] Polyneuropathy due to type 2 diabetes mellitus (396873575) Type 2 diabetes mellitus with diabetic polyneuropathy (E11.42) Active confirmed Vital Signs Blood pressure diastolic 60 mm Hg 08/09/2025 Height 5ft9in in 08/09/2025 Blood pressure systolic 129 mm Hg 08/09/2025 Weight 209 lbs 08/09/2025 BMI 30.86 kg/m2 08/09/2025 Procedures Procedure Date Ordered Date Performed Result Body Sit e 05564-XMZJCSH NAIL, 6 OR MORE 01/28/2025 N/A 94856-CAIU SKIN LESIONS, OVER 4 01/28/2025 N/A Encounters Encounter Location Date Provider Diagnosis [facility] [place] [address] [place] [address] 01/28/2025 Shayna Patel Other hammer toe(s) (acquired), right foot M20.41 ; Other hammer toe(s) (acquired), left foot M20.42 ; Type 2 diabetes mellitus with diabetic polyneuropathy E11.42 and Tinea unguium B35.[address] [address] 05/10/2025 Shayna Patel Type 2 diabetes mellitus with diabetic polyneuropathy E11.42 and Tinea unguium B35.[address] [address] 08/09/2025 Shayna Patel Type 2 diabetes mellitus with diabetic polyneuropathy E11.42 and Tinea unguium B35.[address] [address] 04/22/2025 Shayna Patel Assessments Encounter Date Diagnosis (ICD Code) Assessment Notes Treatment Notes Treatment Clinical Notes Section Notes 01/28/2025 Other hammer toe(s) (acquired), right foot (ICD-10 - M20.41) Patient Educated with: DIABETIC FOOT CARE INSTRUCTIONS. pdf (DIABETIC FOOT CARE INSTRUCTIONS. pdf) 01/28/2025 Other hammer toe(s) (acquired), left foot (ICD-10 - M20.42) 05/10/2025 Type 2 diabetes mellitus with diabetic polyneuropathy (ICD-10 - E11.42) 05/10/2025 Tinea unguium (ICD-10 - B35.1) 08/09/2025 Type 2 diabetes mellitus with diabetic polyneuropathy (ICD-10 - E11.42) 08/09/2025 Tinea unguium (ICD-10 - B35.1) 01/28/2025 Type 2 diabetes mellitus with diabetic polyneuropathy (ICD-10 - E11.42) 01/28/2025 Tinea unguium (ICD-10 - B35.1) Plan Of Treatment Pending Test Test Name Order Date 28839-TTKOAZQ NAIL, 6 OR MORE 08/06/2011 41710-DYTBJDO NAIL, 6 OR MORE 12/03/2011 28538-EJITFRR NAIL, 6 OR MORE 02/18/2012 45011-TTYRGQC NAIL, 6 OR MORE 05/19/2012 83864-WRNTOTO NAIL, 6 OR MORE 08/04/2012 40398-MNCYYVP NAIL, 6 OR MORE 11/03/2012 15460-HDDGEBE NAIL, 6 OR MORE 02/02/2013 69658-BAHUSMM NAIL, 6 OR MORE 05/18/2013 10047-WTWVJQA NAIL, 6 OR MORE 09/02/2013 38221-CJFECLF NAIL, 6 OR MORE 12/03/2013 59179-IEXRECS NAIL, 6 OR MORE 03/08/2014 34097-DMHRIGY NAIL, 6 OR MORE 06/09/2014 47320-YXMBVUS NAIL, 6 OR MORE 09/13/2014 23094-BIQCYUC NAIL, 6 OR MORE 12/13/2014 40495-CYBFODH NAIL, 6 OR MORE 03/16/2015 83806-NGWZYTI NAIL, 6 OR MORE 06/16/2015 99802-FFFSEAN NAIL, 6 OR MORE 09/12/2015 90984-EKUIABS NAIL, 6 OR MORE 12/12/2015 93631-FYNVEBV NAIL, 6 OR MORE 03/15/2016 84791-VAUBMMO NAIL, 6 OR MORE 06/13/2016 89985-UWCUYPQ NAIL, 6 OR MORE 09/12/2016 40519-OSUNARE NAIL, 6 OR MORE 12/19/2016 17638-WKUQIKX NAIL, 6 OR MORE 03/20/2017 43558-UPWVMMG NAIL, 6 OR MORE 06/20/2017 15173-MBLBFCJ NAIL, 6 OR MORE 09/18/2017 76309-WBHXTFD NAIL, 6 OR MORE 12/23/2017 39198-EYLDBZB NAIL, 6 OR MORE 03/24/2018 62785-ETJYLLT NAIL, 6 OR MORE 06/25/2018 91778-HCIWCSC NAIL, 6 OR MORE 09/24/2018 58592-ZIKFXDE NAIL, 6 OR MORE 09/16/2024 39742-FILPPQF NAIL, 6 OR MORE 01/28/2025 72768-Thnbrvht Plate 06/09/2014 36667-Figwfgul Plate 12/13/2014 53798-Ifnvynde Plate 11/03/2012 82333-Tksivdgv Plate 08/04/2012 36641-Nofvgtjd Plate 02/18/2012 52306-Vfgceznu Plate 05/19/2012 56806-Iphwmlks Plate 12/03/2011 62931-Sbgvejtw Plate 08/06/2011 31086- Debride <25 sq cm 12/13/2014 93334-JSML SKIN LESIONS, OVER 4 09/13/20 14 87047-QXWA SKIN LESIONS, OVER 4 06/09/20 14 01207-JJPT SKIN LESIONS, OVER 4 03/08/20 14 29206-SNSR SKIN LESIONS, OVER 4 12/03/19 14 47989-LLTN SKIN LESIONS, OVER 4 09/02/20 13 74314-IARY SKIN LESIONS, OVER 4 05/18/20 13 91230-MSCL SKIN LESIONS, OVER 4 02/03/20 13 17456-PBHX SKIN LESIONS, OVER 4 11/03/19 13 01772-WILS SKIN LESIONS, OVER 4 12/13/19 15 79067-CZEJ SKIN LESIONS, OVER 4 03/16/20 15 43186-SYXK SKIN LESIONS, OVER 4 09/12/20 15 03085-CPIQ SKIN LESIONS, OVER 4 06/16/20 15 07217-VGFU SKIN LESIONS, OVER 4 09/12/20 16 79055-VOZT SKIN LESIONS, OVER 4 06/13/20 16 48882-AFNZ SKIN LESIONS, OVER 4 03/15/20 16 23382-DAVT SKIN LESIONS, OVER 4 12/12/19 16 93453-MZTK SKIN LESIONS, OVER 4 09/24/20 18 65577-OKBD SKIN LESIONS, OVER 4 06/25/20 18 96260-EDMU SKIN LESIONS, OVER 4 03/24/20 18 31374-JHOI SKIN LESIONS, OVER 4 12/24/19 18 88790-NQKR SKIN LESIONS, OVER 4 09/18/20 17 09347-LCKC SKIN LESIONS, OVER 4 12/20/19 17 19404-HYQG SKIN LESIONS, OVER 4 01/29/20 25 85115-TQRV SKIN LESIONS, OVER 4 09/16/20 24 62944-CYOD SKIN LESIONS, OVER 4 12/25/19 19 46651-PJVV SKIN LESIONS, OVER 4 03/25/20 19 77974-CFHP SKIN LESIONS, OVER 4 07/02/20 19 77424-MRHX SKIN LESIONS, OVER 4 10/05/20 19 14258-JIBC SKIN LESIONS, OVER 4 12/30/19 20 95148-PBAA SKIN LESIONS, OVER 4 04/04/20 20 63844-VFVK SKIN LESIONS, OVER 4 07/11/20 20 13125-ALOE SKIN LESIONS, OVER 4 11/16/19 21 83639-TTJP SKIN LESIONS, OVER 4 02/09/20 21 13116-TMXC SKIN LESIONS, OVER 4 05/11/20 21 74410-TQKZ SKIN LESIONS, OVER 4 08/14/20 21 37943-DBGJ SKIN LESIONS, OVER 4 11/15/19 22 39848-ZNAH SKIN LESIONS, 2 TO 4 03/20/20 17 40948-GUYL SKIN LESIONS, 2 TO 4 06/20/20 17 85003-GDCY SKIN LESIONS, 2 TO 4 11/03/19 13 85271-FNJX SKIN LESIONS, 2 TO 4 08/04/20 12 27573-AUQN SKIN LESIONS, 2 TO 4 08/06/20 11 60950-JFVE SKIN LESIONS, 2 TO 4 12/03/19 12 72531-PTCJ SKIN LESIONS, 2 TO 4 05/19/20 12 06533-VBYW SKIN LESIONS, 2 TO 4 02/18/20 12 57366-JSAOLSAO OF HEMATOMA/FLUID 018 Next Appt Details Provider Name:Shayna Schneider allyson, 11/18/2025 09:00:00 AM, [address] [place] [address], [phone], Insurance Providers Payer Name Payer Address Payer Phone Subscriber Number Group Number Insured Name Patient Relationship to Insured Coverage Start Date Coverage End Date Medicare National Govt [employer] [address] [place] [address] [id number] Divya De Los Santos Self - patient is the insured [employer] [facility] [address] [place] [address] [id number] Divya De Los Santos Self - patient is the insured Medical (General) History Medical History History ICD Code mumps measles chicken pox type II diabetes Surgical History Surgery Date(Month/Year) cholecystectomy 1987 rotator cuff tear repair 2008 triple bypass surgery 2000 colonoscopy 04/04/2012 hernia repair 10/30/2013 [place]ization History Reason Date[place] [facility] [place] [facility] [place] 4 days given Meds 04/23/22 [place] [facility] [place] shoulde r 07/07/15 [place] [facility] [place] in h ead. 08/2014 Went to [facility] for sprained right an kle. 03/2013 Patient went to [facility] for gout. 08/01
--- OUTSIDE RECORDS SUMMARY | 2025-10-07 08:30 | XMS_ITS | Clinical Summary ---
Author Organization [facility] Address [address] [place] [address] Phone Care Team Providers Care Pipe Roller Name Role Phone Tomas Dumont MD Primary Care Provider [phone] Allergies No known active allergies Medications amLODIPine [...] 1 tablet (10 mg total) by mouth every morning and evening 180 tablet 3 Active Farxiga 10 MG tablet TAKE ONE TABLET BY MOUTH EVERY DAY 90 tablet 2 025 Active Farxiga 10 MG tablet TAKE ONE TABLET BY MOUTH EVERY DAY 90 tablet 2 025 2024 Discontinued hydrALAZINE (APRESOLINE) 10 MG tabletIndicati ons:Hypertensi on,Stage 3a chronic kidney disease (HCC),Stage 3b chronic kidney disease (HCC) TAKE ONE TABLET BY MOUTH EVERY MORNING AND TAKE ONE TABLET BY MOUTH EVERY EVENING 60 tablet 3 025 2024 Discontinued(R eorder (does not appear on AVS)) Active Problems Problem Noted Date Diagnosed Date Stage 3b chronic kidney disease 07/26/2023 Type 2 diabetes mellitus wit h diabetic chronic kidney disease 07/26/2023 Renal osteodystrophy 07/26/2023 Chronic kidney disease 06/14/2023 Stage 3a chronic kidney disease 06/14/2023 Acute nontraumatic kidney injury, not otherwise specified 06/14/2023 Hypertension 06/14/2023 Encounters Date Type Department Care Team Description 09/14/2025 Refill [facility] [address] [place], [place] [address] Clif Avendaño MD 09/09/2025 [facility]ill [facility] [address] [phone] Judy Muñiz Hypertension; Stage 3a chronic kidney disease (HCC); [...] Office Visit [facility] [address] [place] [address] Tomas Dumont MD [address] [phone] Health Maintenance Due Date Last Done Comments [...] Hemoglobin A1C 6.0 4.0 - 6.0 03/26/2024 [facility] Provider LAB BLOOD ORDERABLES Lisa l Result from Last 3 Months or Most Recently Relevant to Health Maintenance Insurance Medicare [facility] Medicare [facility] Care Teams Pipe Roller Relationship Specialty Start Date End Date Tomas Dumont MD [address] [address] PCP - General Nephrology 07/26/23
--- NOTE | 2025-10-07 08:33 | MHC.OFFVIS ---
Vital Signs 10/07/25 08:36 Height 5 ft 9 in Weight 213 lb BMI 31.5 BP 132/72 Blood Pressure Location Rt brachial Position Sitting Pulse 76 Pulse Source Pulse Oximeter Pulse Oximetry (%) 97 Oxygen Delivery Method Room Air Intake Visit Reasons: r/s 07/20/2025 Intake Note: Patient presents follow up Parkinson/VILMA medication. Titration in chart(AHI-44, REM AHI-72. Trialed 4-9cm, stabilized on 9cm. Patient states melatonin made him not feel good stopped taking. Left had more shaking then right. states doing good. Accompanied by: Spouse Allergies amoxicillin Allergy (Severe, Verified 10/07/25 08:40) Diarrhea olmesartan Allergy (Unknown, Verified 10/07/25 08:40) Diarrhea HPI Comments Details: 70y/o male comes for a f/u of neurological evaluation.He is accompanied by his who helps with history. PMH c/w h/o Bypass in 2000, since the past 2 years he had a lot of medical complications. Diabetes, renal insufficiency, bleeding ulcers, anemia, CHF . His PCP was concerned about general slowing and weakness. His was concerned about his stooped posture and shuffling gait. He started having tremors in his left hand. He was seen by Dr. Cochran and diagnosed with Parkinsons disease, then started on CD/LD 25/100mg po tid, and symptoms improved. 7am 1tab, 11am 1tab, 3pm 1tab. He has severe vilma the AHI is 42 and REM AHI is 71, he had a split night study and was started on cpap therapy of 9cmH20. He takes melatonin and can sleep through the night though has REM behavior disorder, and still wakes up for the bathroom 2-3x per night. Memory-short term memory is not good, places the coffee mug upside and tries to pour the coffee into it and will recall it, word finding difficulty. Sleep-talks yells in sleep, snores, sleep study was normal as per patient. Mood- anxiety , irritable , confused easily. Speech- softer, denies drooling, rayon tester checked the hearing aids, still squealing and volume of conversations bother him. speech and hearing f/u pending. Handwriting- sloppy , now micrographia. Using utensils is difficult, cant cut his food, r. rotator cuff injury, can't lift his r. arm. Dressing and showering, slower, will get a chair and needs support. Turning in bed- he fell out of bed several times - has bed-rails now. 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 He uses a cane, no recent falls. PT 2x a week. Not sure about hallucinations. No double vision, no dizziness. [facility] Medical History Hypersomnia Snoring REM behavioral disorder Chronic renal insufficiency Parkinson disease Alzheimer disease Leukocytosis Screening for prostate cancer Generalized anxiety disorder Diarrhea Anxiety and depression Type 2 diabetes mellitus with hyperglycemia Hypercholesterolemia GERD (gastroesophageal reflux disease) Vitamin D deficiency Obesity (BMI 30-39.9) Coronary artery disease Hypertension Humeral fracture Surgical History Hx of cardiac catheterization History of endoscopic gastrointestinal surgery History of colonoscopy History of coronary artery bypass graft History of umbilical hernia repair History of tonsillectomy History of repair of rotator cuff History of cholecystectomy Family History Father Lung cancer Mother Diabetes Hypertension Social History Household Members: Spouse Housing: House Do you presently have visiting nurse or other home services: No Alcohol intake: never Patient Tobacco Use Status: Never used Tobacco e-Cigarette/Vaping Use: Never Used Second Hand Smoke Exposure: No Advance Directives Date on File: 03/07/22 service: No Current occupational status: retired Cognitive needs: No Hearing needs: Yes Vision needs: Yes (glasses) Physical Exam Vital Signs: Last Vital Signs Pulse 76 10/07/25 08:36 BP 132/72 10/07/25 08:36 Pulse Ox 97 10/07/25 08:36 Oxygen Delivery Method Room Air 10/07/25 08:36 BMI result Body Mass Index 31.5 Const General: cooperative, comfortable and no acute distress Nutritional Appearance: overweight Orientation/consciousness: patient oriented x3 Eyes Pupils: Equal, round and reactive pupils present Resp Other: slow to respond Effort & Inspection: able to speak in complete sentences Neuro Other: voice hypophonia, montone, flat Mild left hand rest tremors Cog wheel rigidity - max L>R FFM and foot taps - decreased max L>R Facial expression - decreased Blink decreased Speech mild dysprosody Decreased shoulder shrug Gait stooped, no arm swing on the left decreased on the right, rigid gait General: patient oriented x3 and moves all extremities (slow to move) Cranial nerves: Yes Equal, round and reactive pupils present, Yes Bilaterally intact EOM present, Yes Nystagmus not present, Yes Normal facial strength present, Yes Midline tongue present and Yes Symmetric palate elevation present Cognition (Neuro): normal cognition Motor exam (neuro): 5/5 motor strength present throughout Deep tendon reflexes (DTR's): Right triceps reflex intensity grade: 1+, Left triceps reflex intensity grade: 1+, Rt Biceps (C5, C6): 1+, Left biceps reflex intensity grade: 1+, Right brachioradialis reflex intensity grade: 1+, Left brachioradialis reflex intensity grade: 1+, Right patellar reflex intensity grade: 1+ and Left patellar reflex intensity grade: 1+ Coordination: [id number] test normal (over shoots) Psych Appearance: grossly normal Results Reviewed Results Reviewed: Split night study 09/2025 reviewed with pt. AHI is >40/hr, severe vilma with REM behavior disorder, Arousal index is 32.7 Sleep efficiency is 77%, 23% of sleep is snoring. Start therapy on cpap 9cmH20 and Airtouch F20 medium sized mask. Assessment & Plan Assessment & Plan (1) Parkinson disease: Comment: Bradykinesia, tremors and cog wheel rigidity Code(s): G20.A1 - Parkinson's disease without dyskinesia, without mention of fluctuations Category: Medical Qualifiers: Dyskinesia presence: without dyskinesia Fluctuating manifestations: without fluctuating manifestations Qualified Code(s): G20.A1 - Parkinson's disease without dyskinesia, without mention of fluctuations (2) Cognitive impairment: Code(s): R41.89 - Other symptoms and signs involving cognitive functions and awareness Category: Medical (3) REM behavioral disorder: Comment: cpap 9cmH20 Code(s): G47.52 - REM sleep behavior disorder Category: Medical Plan: mirtazapine (4) Speech abnormality: Comment: Apraxia with dysprosody Code(s): R47.9 - Unspecified speech disturbances Category: Medical Qualifiers: Speech disturbance type: unspecified speech disturbance Qualified Code(s): R47.9 - Unspecified speech disturbances Plan Discussed symptom management of PD with pt, and will continue carbidopa/levodopa 25/100 tid 7am, 11am, 3pm. Continue PT for parkinsons specific therapy, gait is improving per his . Join the [facility] for ongoing therapy. REM Behavior of sleep Split night study reviewed with pt. AHI is >40, with vivid dreams, yelling, improved since starting Mirtazapine 7.5mg po at bedtime. -rx is written for cpap therapy on [id number] - mouth breather- with chin straps and humidfication. Hearing difficulty, dysprosody, apraxia, speech referral. Melatonin 5 mg qhs for REM behavior disorder- will consider clonazepam if he does not respond. f/u in 3 months. Orders: Referrals Speech and Hearing Referral H91.90 - Unspecified hearing loss, unspecified ear, R41.89 - Other symptoms and signs involving cognitive functions and awareness Patient Instructions: reviewed the importance of compliance with cpap to optimized health outcomes. Coding Level of Care Code Est Pt Level 4 (42045) Diagnoses Parkinson's disease without dyskinesia or fluctuating manifestations G20.A1 Dyskinesia presence: without dyskinesia Fluctuating manifestations: without fluctuating manifestations Cognitive impairment R41.89 REM behavioral disorder G47.52 Speech disturbance, unspecified type R47.9 Speech disturbance type: unspecified speech disturbance
[2025-10-07 08:36] VITALS: BP 132/72; PULSE 76; O2SAT 97; BMI 31.5
== END 2025-10-07 09:35 | disposition home or self-care (01) ==
LOC: HO.HSMS 08:17
PROVIDERS: Visit Provider Physician Assistant Medical
DX: G20.A1 Parkinson's disease without dyskinesia, without mention of fluctuations (principal); R41.89 Other symptoms and signs involving cognitive functions and awareness; G47.52 REM sleep behavior disorder; R47.9 Unspecified speech disturbances
CPT/HCPCS: 99214

== ENCOUNTER → 2025-10-07 08:16 | Outpatient (BNVA) | payer MEDICARE, SELFPAY ==
[2023-09-19 08:02] VITALS: BP 140/52; BP 140/74; BMI 31.0
== END ==
PROVIDERS: Visit Provider Physician Assistant Medical
DX: G20.A1 Parkinson's disease without dyskinesia, without mention of fluctuations (principal); F02.83 Dementia in other diseases classified elsewhere, unspecified severity, with mood disturbance; R41.89 Other symptoms and signs involving cognitive functions and awareness; G47.33 Obstructive sleep apnea (adult) (pediatric); Z99.89 Dependence on other enabling machines and devices
CPT/HCPCS: 99212